=== PATIENT | female | born 1935 | race Hispanic/Latino ===

== ENCOUNTER 2018-04-24 23:01 | Inpatient (IN) | payer MEDICARE, OTHER ==
[2018-04-24 23:02] VITALS: BMI 26.6
[2018-04-24] MEDS ORDERED: Albuterol-Ipratrop 3 mg / 0.5 (3 ml) UD INH STA ×2 (23:34)
--- NOTE | 2018-04-24 23:35 | ED PDOC ---
HPI: SOB/CHF/COPD Time Seen by Provider: 04/24/18 23:18 Chief Complaint (Nursing): Shortness Of Breath Chief Complaint (Provider): Shortness Of Breath History Per: Patient, Family (daughter) History/Exam Limitations: no limitations Onset/Duration Of Symptoms: Days (x1) Current Symptoms Are (Timing): Still Present Additional Complaint(s): 82 year old female presents to the ED with daughter for evaluation of shortness of breath, a non-productive cough, and generalized weakness for one day. As per daughter, the patient was just discharged from [facility] where she was admitted for CHF. At home, patient is taking nebulizer treatments. PMD: Yoav Colindres Past Medical History Reviewed: Historical Data, Nursing Documentation, Vital Signs Vital Signs: Last Vital Signs Temp 97.9 F 04/27/18 12:40 Pulse 62 04/27/18 12:40 Resp 20 04/27/18 12:40 BP 119/63 04/27/18 12:40 Pulse Ox 97 04/27/18 12:40 - Medical History PMH: Anemia, Arthritis, Asthma, Atrial Fibrillation, Cardia Arrhythmia (A-FIB), CHF, COPD, Depression, HTN, Hypercholesterolemia, Hypothyroidism, Kidney Stones , Pneumonia, Chronic Kidney Disease - Surgical History Surgical History: Endoscopy, Pacemaker - Family History Family History: States: Unknown Family Hx - Home Medications Home Medications: Ambulatory Orders Medication Instructions Recorded Escitalopram [Lexapro] 10 mg PO DAILY 09/13/14 Magnesium Oxide 400 mg PO BID 09/13/14 Montelukast [Singulair] 10 mg PO HS 09/13/14 rifAXIMin [Xifaxan] 550 mg PO BID 09/13/14 Albuterol 0.083% [Albuterol 0.083% 3 ml NEB PRN PRN 12/13/17 Inhal Josefina (2.5 mg/3 ml) UD] Anastrozole 1 mg PO DAILY 12/13/17 Ascorbic Acid 500 mg PO DAILY 12/13/17 Calcium Acetate 667 mg PO DAILY 12/13/17 Carvedilol [Coreg] 6.25 mg PO Q12 12/13/17 Colchicine [Colcrys] 0.6 mg PO DAILY 12/13/17 Ergocalciferol (Vitamin D2) 50,000 unit PO QWK 12/13/17 [Vitamin D2] Esomeprazole Magnesium [Nexium] 40 mg PO DAILY 12/13/17 Febuxostat [Uloric] 40 mg PO DAILY 12/13/17 Ferrous Sulfate [Feosol] 325 mg PO TID 12/13/17 Furosemide [Lasix] 40 mg PO BID 12/13/17 Insulin Glargine,Hum.rec.anlog 10 unit SQ HS 12/13/17 [Lantus Solostar] Insulin Lispro [Humalog Kwikpen 10 unit SQ TID PRN 12/13/17 U-100] Lactulose 30 ml PO TID 12/13/17 Levothyroxine Sodium 25 mcg PO DAILY 12/13/17 Clinton-3 Fatty Acids [Clinton-3] 1,000 mg PO DAILY 12/13/17 Potassium Chloride 20 meq PO BID 12/13/17 diltiaZEM [Cardizem] 120 mg PO DAILY 12/13/17 - Allergies Allergies/Adverse Reactions: Allergies Allergy/AdvReac Type Severity Reaction Status Date / Time metoclopramide [From Reglan] Allergy ANAPHYLAXIS Verified 04/24/18 23:06 Review of Systems ROS Statement: Except As Marked, All Systems Reviewed And Found Negative Constitutional: Positive for: Weakness (generalized) Respiratory: Positive for: Cough (non-productive), Shortness of Breath Physical Exam - Reviewed Nursing Documentation Reviewed: Yes Vital Signs Reviewed: Yes - Physical Exam Appears: Positive for: No Acute Distress Head Exam: Positive for: ATRAUMATIC, NORMAL INSPECTION, NORMOCEPHALIC Skin: Positive for: Normal Color, Warm, Dry Eye Exam: Positive for: Normal appearance ENT: Positive for: Normal ENT Inspection Neck: Positive for: Normal, Painless ROM, Supple Cardiovascular/Chest: Positive for: Regular Rate, Rhythm (with pacemaker) Respiratory: Positive for: Crackles (bilateral), Respiratory Distress (mild) Gastrointestinal/Abdominal: Positive for: Normal Exam, Soft. Negative for: Tenderness Back: Positive for: Normal Inspection Extremity: Positive for: Pedal Edema (bilateral +1 pitting) Neurologic/Psych: Positive for: Alert, Oriented (x3) - Laboratory Results Result Diagrams: 04/27/18 04:20 04/27/18 04:20 - ECG Interpretation Of ECG: AV dual paced rhythm @ 63. O2 Sat by Pulse Oximetry: 93 (RA) Pulse Ox Interpretation: Abnormal Interpretation Of Abnormal: hx of COPD and CHF Medical Decision Making Medical Decision Making: Time: 2333 Initial Impression: COPD, CHF Initial Plan: --ABG --EKG --CMP --BNP --TSH --Trop I --U-dip --UA --CBC with differential --PT / PTT --CXR --Duoneb 3ml INH x2 --Methylprednisone 125mg IVP --Blood culture --Peak flow pre/post x2 Scribe Attestation: Documented by Meagan Nur acting as a scribe for Tamara Ureña MD. Provider Scribe Attestation: All medical record entries made by the Scribe were at my direction and personally dictated by me. I have reviewed the chart and agree that the record accurately reflects my personal performance of the history, physical exam, medical decision making, and the department course for this patient. I have also personally directed, reviewed, and agree with the discharge instructions and disposition. Disposition - Clinical Impression Clinical Impression: COPD exacerbation, CHF (congestive heart failure) - Patient ED Disposition Is Patient to be Admitted: Transfer of Care - Disposition Disposition: Transfer of Care Disposition Time: 00:00 Condition: STABLE Patient Signed Over To: Jesus Moore
[2018-04-24 23:56] LABS: BASO # 0.1 K/uL (0.0-0.2); EOS # 0.1 K/uL (0.0-0.7); EOS % 1.1 % (0.0-4.0); HEMOGLOBIN 12.6 g/dL (12.0-16.0); LYMPH # 1.4 K/uL (1.0-4.3); LYMPH % 12.8 % (20.0-40.0); MEAN CELL VOLUME 97.9 fl (81.0-99.0); MEAN CORPUSCULAR HEMOGLOBIN 32.9 pg (27.0-31.0); MEAN CORPUSCULAR HGB CONC 33.6 g/dL (33.0-37.0); MEAN PLATELET VOLUME 12.1 fl (7.2-11.7); MONO # 0.9 K/uL (0.0-0.8); MONO % 8.1 % (0.0-10.0); NEUT # 8.7 K/uL (1.8-7.0); RBC 3.81 Mil/uL (3.80-5.20); RED CELL DISTRIBUTION WIDTH 14.7 % (11.5-14.5); WHITE BLOOD COUNT 11.2 K/uL (4.8-10.8)
[2018-04-24 23:57] LABS: VENOUS BLOOD GAS BASE EXCESS 8.9 mmol/L (0.0-2.0); VENOUS BLOOD GAS PCO2 51 mmHg (40-60); VENOUS BLOOD GAS PO2 51 mm/Hg (30-55); VENOUS BLOOD PH 7.44 (7.32-7.43)
[2018-04-25 00:03] LABS: INR 1.1; PROTHROMBIN TIME 12.7 Seconds (9.8-13.1)
[2018-04-25 00:05] LABS: ALB/GLOB RATIO 0.8 (1.0-2.1); ALBUMIN 3.6 g/dL (3.5-5.0); BLOOD UREA NITROGEN 23 mg/dl (7-17); CALCIUM 10.4 mg/dL (8.4-10.2); GFR NON-AFRICAN AMERICAN 60; PARTIAL THROMBOPLASTIN TIME 31.3 Seconds (25.6-37.1)
--- NOTE | 2018-04-25 00:06 | ED PDOC ---
- Laboratory Results Result Diagrams: 04/24/18 23:40 04/24/18 23:40 - ECG O2 Sat by Pulse Oximetry: 93 (RA) - Critical Care Total Time (In Min): 30 Documented Critical Care: Time excludes all time spent performint seperately billable procedures Medical Decision Making Medical Decision Makin Pt care endorsed to Dr. Moore from Dr. Ureña pending labs and reevaluation. [address] Jenkins who is agreeable to place patient on observation status. 0210 RN informed provider that pt was becoming increasingly SOB. Pt was reevaluated and found to have full field bilateral rales in moderate respiratory distress. BIPAP, Lasix, Atrovent, Duoneb, Albuterol, and peak flow pre/post ordered. Scribe Attestation: Documented by Meagan Nur acting as a scribe for Jesus Moore MD. Provider Scribe Attestation: All medical record entries made by the Scribe were at my direction and personally dictated by me. I have reviewed the chart and agree that the record accurately reflects my personal performance of the history, physical exam, medical decision making, and the department course for this patient. I have also personally directed, reviewed, and agree with the discharge instructions and disposition. Disposition Counseled Patient/Family Regarding: Studies Performed, Diagnosis, Need For Followup - Clinical Impression Clinical Impression: COPD exacerbation, CHF (congestive heart failure) - POA Present On Arrival: None - Disposition Disposition: Hospitalized as Observation Patient Disposition Time: 00:15
[2018-04-25 00:16] LABS: B-TYPE NATRIURETIC PEPTIDE 3640 pg/ml (0-900)
[2018-04-25] MEDS ORDERED: Albuterol-Ipratrop 3 mg / 0.5 (3 ml) UD ONE (00:18)
[2018-04-25 00:48] LABS: ALT/SGPT 36 U/L (9-52); AST/SGOT 57 U/L (14-36)
[2018-04-25] MEDS ORDERED: Albuterol-Ipratrop 3 mg / 0.5 (3 ml) UD INH STA (01:16)
[2018-04-25] MEDS ORDERED: Ipratropium 0.02% Inhal Soln (0.5 mg/2.5 ml) UD IH ONE (01:56)
[2018-04-25] MEDS ORDERED: Albuterol 0.083% Inhal Sol (2.5 mg/3 mL) UD ONE (01:56)
[2018-04-25] MEDS ORDERED: Albuterol 0.083% Inhal Sol (2.5 mg/3 mL) UD INH STA (01:58)
[2018-04-25] MEDS ORDERED: Ipratropium 0.02% Inhal Soln (0.5 mg/2.5 ml) UD IH STA (01:58)
[2018-04-25] MEDS ORDERED: Dextrose 50% SYRINGE Inj (50 ml) IV PRN (07:14)
[2018-04-25] MEDS ORDERED: Glucagon Recombinant 1 mg Inj IM PRN (07:14)
--- NOTE | 2018-04-25 07:43 | CARD ---
APPROVED REPORT Date of service: 04/24/2018 EKG Measurement Heart [id number] <Conclusion> AV dual-paced rhythm Abnormal ECG
[2018-04-25] MEDS: Albuterol-Ipratrop 3 mg / 0.5 (3 ml) UD INH SCH ×4 (07:55→19:11)
[2018-04-25] MEDS: MethylPREDNISolone 40 mg Vial IVP SCH ×2 (08:43→18:00)
[2018-04-25] MEDS: Insulin Lispro (humaLOG) 100 Units/ml Inj SC SCH ×4 (08:44→21:30)
[2018-04-25] MEDS ORDERED: Potassium Chloride 20 mEq/15 ml LIQ UD PO SCH (09:00)
[2018-04-25] MEDS: Levothyroxine 25 MCG TAB PO SCH (09:31)
[2018-04-25] MEDS: Enoxaparin 40 mg Syringe SC SCH (10:32)
--- NOTE | 2018-04-25 10:32 | RAD ---
Date of service: 04/24/2018 PROCEDURE: CHEST RADIOGRAPH, 1 VIEW HISTORY: SOB COMPARISON: 12/25/2014 FINDINGS: LUNGS: There is moderate pulmonary venous congestion. There is subsegmental atelectasis in the left mid lung. PLEURA: No pneumothorax. Small right pleural fluid seen. CARDIOVASCULAR: Moderate cardiomegaly. Stable position of right-sided permanent pacing device. OSSEOUS STRUCTURES: No significant abnormalities. VISUALIZED UPPER ABDOMEN: Normal. OTHER FINDINGS: None. IMPRESSION: Findings are consistent with mild congestive heart failure with a small right pleural effusion.
[2018-04-25] MEDS ORDERED: INSULIN LISPRO 10 UNIT SQ PRN (12:15)
--- NOTE | 2018-04-25 14:48 | CP.PCM.HP ---
History of Present Illness - History of Present Illness History of Present Illness: HPI: Pt is an 82 y/o female with PMHX of CHF w/ Pacemaker, COPD, Afibb, DM, HTN, Depression, Hypothyroidism, Liver Cirrhosis who presented to [facility] ED with complaints of worsening sob associated with dry cough and generalized weakness x 1 day. Pt was discharged 1 week ago from [facility] for treatment of CHF exacerbation. She denies chest pain, LE edema, fever, chills, dysuria, N/V/D. Family at bedside. PMD: Dr. Colindres PMHX: CHF, COPD, Afibb, DM, HTN, Liver Cirrhosis Medications: Lasix 40mg po BID, Coreg, Cardizem, Humalog 10mg TID ACHS, Latus 10mg at bedtime, Albuterol, Lactulose, Levothyroxine, Magnesium Oxide and MOnteluekast, Rifaxamine SurgHx: Pacemaker Allergic to Reglan: Anaphylaxis Social: Lives with daughter. Non smoker ED Course/Intervention -Pt noted to be in respiratory distress, O2 sat 93 on rm air, placed on BIPAP -Duonebs x 3 -Lasix 60mg IV -Methylprednisone 125mg x1 -Cxray- mild pulmonary venous congestion, no focal infiltrates -ProBNP 3640 -K 5.3 Present on Admission - Present on Admission Any Indicators Present on Admission: No History of DVT/PE: No History of Uncontrolled Diabetes: No Urinary Catheter: No Decubitus Ulcer Present: No Past Patient History - Tetanus Immunizations Tetanus Immunization: Unknown - Past Medical History & Family History Past Medical History?: Yes - Past Social History Smoking Status: Never Smoked - CARDIAC Hx Atrial Fibrillation: Yes Hx Cardia Arrhythmia: Yes (A-FIB) Hx Congestive Heart Failure: Yes Hx Hypercholesterolemia: Yes Hx Hypertension: Yes Hx Pacemaker: Yes - PULMONARY Hx Asthma: Yes Hx Chronic Obstructive Pulmonary Disease (COPD): Yes Hx Pneumonia: Yes - NEUROLOGICAL Hx Neurological Disorder: Yes HX Cerebrovascular Accident: Yes - HEENT Hx HEENT Problems: Yes Hx Cataracts: Yes - RENAL Hx Chronic Kidney Disease: Yes - ENDOCRINE/METABOLIC Hx Diabetes Mellitus Type 1: Yes Hx Hypothyroidism: Yes - HEMATOLOGICAL/ONCOLOGICAL Hx AIDS: No Hx Anemia: Yes Hx Blood Transfusions: Yes Hx Blood Transfusion Reaction: No Hx Human Immunodeficiency Virus (HIV): No - INTEGUMENTARY Hx Dermatological Problems: No - MUSCULOSKELETAL/RHEUMATOLOGICAL Hx Arthritis: Yes Hx Falls: No Hx Unsteady Gait: Yes - GASTROINTESTINAL Hx Gastrointestinal Disorders: Yes Hx Liver Failure: Yes - GENITOURINARY/GYNECOLOGICAL Hx Genitourinary Disorders: Yes Hx Incontinence: Yes - PSYCHIATRIC Hx Depression: Yes Hx Substance Use: No - SURGICAL HISTORY Hx Surgeries: Yes Hx Cataract Extraction: Yes (BILAT.) Hx Cardiac Catheterization: Yes Other/Comment: HX: CYSTO WITH STENT PLACED. HX: RECONSTRUCTION OF VAGINA. HX: CYSTOSCOPY RIGHT URETERAL STENT EXCHANGE(01/29/18) - ANESTHESIA Hx Anesthesia: Yes Hx Anesthesia Reactions: No Hx Malignant Hyperthermia: No Meds Allergies/Adverse Reactions: Allergies Allergy/AdvReac Type Severity Reaction Status Date / Time metoclopramide [From Reglan] Allergy ANAPHYLAXIS Verified 04/24/18 23:06 Physical Exam - Constitutional Appears: No Acute Distress - Head Exam Head Exam: NORMAL INSPECTION - Eye Exam Eye Exam: Normal appearance - ENT Exam ENT Exam: Mucous Membranes Moist - Respiratory Exam Respiratory Exam: Rales (BL mid lung bases). absent: Wheezes, Respiratory Distress, Stridor - Cardiovascular Exam Cardiovascular Exam: REGULAR RHYTHM, +S1, +S2 - GI/Abdominal Exam GI & Abdominal Exam: Normal Bowel Sounds, Soft. absent: Tenderness - Extremities Exam Extremities exam: Positive for: normal capillary refill, pedal edema (+1 pitting edema) - Neurological Exam Neurological exam: Alert, Oriented x3 - Psychiatric Exam Psychiatric exam: Normal Affect, Normal Mood - Skin Skin Exam: Normal Color Results - Vital Signs Recent Vital Signs: Last Vital Signs Temp 97.7 F 04/25/18 12:24 Pulse 62 04/25/18 12:24 Resp 20 04/25/18 12:24 BP 146/67 04/25/18 12:24 Pulse Ox 97 04/25/18 12:24 - Labs Result Diagrams: 04/24/18 23:40 04/24/18 23:40 Labs: Laboratory Results - last 24 hr 04/24/18 04/24/18 04/24/18 23:40 23:40 23:40 WBC 11.2 H RBC 3.81 Hgb 12.6 Hct 37.3 MCV 97.9 MCH 32.9 H MCHC 33.6 RDW 14.7 H Plt Count 102 L MPV 12.1 H Neut % (Auto) 77.0 H Lymph % (Auto) 12.8 L George % (Auto) 8.1 Eos % (Auto) 1.1 Baso % (Auto) 1.0 Neut # (Auto) 8.7 H Lymph # (Auto) 1.4 George # (Auto) 0.9 H Eos # (Auto) 0.1 Baso # (Auto) 0.1 PT 12.7 INR 1.1 APTT 31.3 pO2 VBG pH VBG pCO2 VBG HCO3 VBG Total CO2 VBG O2 Sat (Calc) VBG Base Excess VBG Potassium Glucose Lactate FiO2 Sodium 134 Potassium 5.3 H Chloride 96 L Carbon Dioxide 32 H Anion Gap 11 BUN 23 H Creatinine 0.9 Est GFR ( Amer) > 60 Est GFR (Non-Af Amer) 60 POC Glucose (mg/dL) Random Glucose 195 H Calcium 10.4 H Total Bilirubin 1.4 H AST 57 H ALT 36 Alkaline Phosphatase 77 Troponin I 0.0540 NT-Pro-B Natriuret Pep 3640 H Total Protein 7.9 Albumin 3.6 Globulin 4.3 H Albumin/Globulin Ratio 0.8 L TSH 3rd Generation 5.01 H Venous Blood Potassium 04/24/18 04/25/18 04/25/18 23:54 01:32 05:02 WBC RBC Hgb Hct MCV MCH MCHC RDW Plt Count MPV Neut % (Auto) Lymph % (Auto) George % (Auto) Eos % (Auto) Baso % (Auto) Neut # (Auto) Lymph # (Auto) George # (Auto) Eos # (Auto) Baso # (Auto) PT INR APTT pO2 51 VBG pH 7.44 H VBG pCO2 51 VBG HCO3 31.6 VBG Total CO2 36.2 H VBG O2 Sat (Calc) 91.4 H VBG Base Excess 8.9 H VBG Potassium 4.9 Glucose 209 H Lactate 2.3 H FiO2 21.0 Sodium 132.0 Potassium Chloride 98.0 Carbon Dioxide Anion Gap BUN Creatinine Est GFR ( Amer) Est GFR (Non-Af Amer) POC Glucose (mg/dL) 167 H 235 H Random Glucose Calcium Total Bilirubin AST ALT Alkaline Phosphatase Troponin I NT-Pro-B Natriuret Pep Total Protein Albumin Globulin Albumin/Globulin Ratio TSH 3rd Generation Venous Blood Potassium 4.9 04/25/18 11:10 WBC RBC Hgb Hct MCV MCH MCHC RDW Plt Count MPV Neut % (Auto) Lymph % (Auto) George % (Auto) Eos % (Auto) Baso % (Auto) Neut # (Auto) Lymph # (Auto) George # (Auto) Eos # (Auto) Baso # (Auto) PT INR APTT pO2 VBG pH VBG pCO2 VBG HCO3 VBG Total CO2 VBG O2 Sat (Calc) VBG Base Excess VBG Potassium Glucose Lactate FiO2 Sodium Potassium Chloride Carbon Dioxide Anion Gap BUN Creatinine Est GFR ( Amer) Est GFR (Non-Af Amer) POC Glucose (mg/dL) > 500 H* Random Glucose Calcium Total Bilirubin AST ALT Alkaline Phosphatase Troponin I NT-Pro-B Natriuret Pep Total Protein Albumin Globulin Albumin/Globulin Ratio TSH 3rd Generation Venous Blood Potassium Assessment & Plan (1) CHF (congestive heart failure) Status: Acute Priority: Medium (2) COPD exacerbation Status: Acute (3) Cirrhosis Status: Chronic (4) Hypothyroidism Status: Chronic (5) Afib Status: Chronic (6) HTN (hypertension) Status: Chronic (7) Thrombocytopenia Status: Chronic (8) DM2 (diabetes mellitus, type 2) Status: Chronic Priority: Medium (9) Pacemaker Status: Chronic Priority: Low - Assessment and Plan (Free Text) Assessment: Pt is an 82 y/o female with PMHX of CHF w/ Pacemaker, COPD, Afibb, DM, HTN,Liver Cirrhosis who presented to [facility] ED with complaints of worsening sob associated with dry cough, generalized weakness x 1 day admit for respiratory distress. -Respiratory symptoms likely secondary to CHF exacerbation vs COPD exacerbation -Respiratory status improved this morning. pt currently on high flow O2 -C/W IV Lasix, scheduled duonebs, IV prednisolone. -TSH elevated, restarted home levothyroxine -Started on home medications -PMD aware -Medical release forms signed to retrieve Echo report from [facility] Discussed case with Dr. Gregory Rivera, PGY2
[2018-04-25] MEDS: Magnesium Oxide 400 mg Tab UD PO SCH (18:05)
[2018-04-25] MEDS: Insulin Detemir 100 Units/ml Inj SC SCH (21:21)
[2018-04-26] MEDS: MethylPREDNISolone 40 mg Vial IVP SCH ×2 (01:30→09:45)
[2018-04-26] MEDS: Levothyroxine 25 MCG TAB PO SCH (05:58)
[2018-04-26 06:11] LABS: ALB/GLOB RATIO 0.8 (1.0-2.1); ALBUMIN 3.6 g/dL (3.5-5.0); CALCIUM 9.9 mg/dL (8.4-10.2)
[2018-04-26 06:15] LABS: BASO % 0.2 % (0.0-2.0); EOS % 0.2 % (0.0-4.0); HEMOGLOBIN 12.4 g/dL (12.0-16.0); LYMPH # 0.7 K/uL (1.0-4.3); LYMPH % 4.1 % (20.0-40.0); MEAN CELL VOLUME 98.4 fl (81.0-99.0); MEAN CORPUSCULAR HGB CONC 33.6 g/dL (33.0-37.0); MEAN PLATELET VOLUME 12.5 fl (7.2-11.7); MONO # 0.3 K/uL (0.0-0.8); MONO % 1.8 % (0.0-10.0); NEUT # 16.9 K/uL (1.8-7.0); NEUT % 93.7 % (50.0-75.0); PLATELET COUNT 90 K/uL (130-400); RBC 3.76 Mil/uL (3.80-5.20); RED CELL DISTRIBUTION WIDTH 14.6 % (11.5-14.5); WHITE BLOOD COUNT 18.1 K/uL (4.8-10.8)
[2018-04-26] MEDS: Insulin Lispro (humaLOG) 100 Units/ml Inj SC SCH ×4 (07:44→21:12)
[2018-04-26] MEDS: Albuterol-Ipratrop 3 mg / 0.5 (3 ml) UD INH SCH ×2 (08:03→11:08)
[2018-04-26] MEDS ORDERED: Levothyroxine 25 MCG TAB PO SCH (09:00)
[2018-04-26] MEDS: diltiaZEM 120 mg/24 Hours CD Cap PO SCH (09:41)
[2018-04-26] MEDS: Magnesium Oxide 400 mg Tab UD PO SCH ×2 (09:41→19:00)
[2018-04-26] MEDS: Omega-3-Acid Ethyl Esters 1 GM Cap PO SCH (09:41)
[2018-04-26] MEDS: Calcium Acetate 667 MG Capsule PO SCH (09:42)
[2018-04-26] MEDS: Enoxaparin 40 mg Syringe SC SCH (09:43)
[2018-04-26 11:57] LABS: BANDS 3 % (0-2); LYMPHOCYTE 6 % (20-50); MONOCYTE 2 % (0-10); NEUTROPHIL 89 % (42-75); TOTAL CELLS COUNTED 100
[2018-04-26 11:59] LABS: PLATELET ESTIMATE DECREASED (NORMAL)
[2018-04-26] MEDS ORDERED: Albuterol-Ipratrop 3 mg / 0.5 (3 ml) UD INH PRN (12:11)
--- NOTE | 2018-04-26 14:11 | CP.PCM.PN ---
Subjective - Date & Time of Evaluation Date of Evaluation: 04/26/18 Time of Evaluation: 08:00 - Subjective Subjective: No acute overnight events. Pt used bipap intermittently through the night. Pt seen and examined this am with Dr. Wayne, family at bedside. Pt reports improvement in her breathing compared to yesterday. Has been urinating frequently. Able to get out of bed to commode with assistance. Denies chest pain. Objective - Vital Signs/Intake and Output Vital Signs (last 24 hours): Temp Pulse Resp BP Pulse Ox 97.8 F 81 18 127/74 98 04/26/18 08:09 04/26/18 09:42 04/26/18 08:09 04/26/18 11:55 04/26/18 08:09 - Medications Medications: Current Medications Albuterol/Ipratropium (Duoneb 3 Mg/0.5 Mg (3 Ml) Ud) 3 ml INH RQID PRN PRN Reason: Shortness of Breath Ascorbic Acid (Vitamin C 500 Mg Tab) 500 mg PO DAILY [facility] Last Admin: 04/26/18 09:41 Dose: 500 mg Calcium Acetate (Phoslo) 667 mg PO DAILY [facility] Last Admin: 04/26/18 09:42 Dose: 667 mg Carvedilol (Coreg) 6.25 mg PO Q12 [facility] Last Admin: 04/26/18 09:42 Dose: 6.25 mg Colchicine (Colocrys) 0.6 mg PO DAILY [facility] Last Admin: 04/26/18 09:43 Dose: 0.6 mg Dextrose (Dextrose 50% Inj) 0 ml IV STAT PRN; Protocol PRN Reason: Hypoglycemia Protocol Dextrose (Glutose 15) 0 gm PO ONCE PRN; Protocol PRN Reason: Hypoglycemia Protocol Diltiazem HCl (Cardizem Cd) 120 mg PO DAILY [facility] Last Admin: 04/26/18 09:41 Dose: 120 mg Enoxaparin Sodium (Lovenox) 40 mg SC DAILY [facility] PRN Reason: Protocol Last Admin: 04/26/18 09:43 Dose: 40 mg Ergocalciferol (Drisdol 50,000 Intl Units Cap) 1 cap PO QWK [facility] Escitalopram Oxalate (Lexapro) 10 mg PO DAILY [facility] Last Admin: 04/26/18 09:41 Dose: 10 mg Ferrous Sulfate (Feosol) 325 mg PO TID [facility] Last Admin: 04/26/18 13:37 Dose: 325 mg Furosemide (Lasix) 40 mg IVP BID [facility] Last Admin: 04/26/18 11:55 Dose: 20 mg Glucagon (Glucagen Diagnostic Kit) 0 mg IM STAT PRN; Protocol PRN Reason: Hypoglycemia Protocol Insulin Detemir (Levemir) 10 units SC HS [facility] Last Admin: 04/25/18 21:21 Dose: 10 units Insulin Human Lispro (Humalog) 0 units SC [facility] PRN Reason: Protocol Last Admin: 04/26/18 12:00 Dose: 10 units Lactulose (Enulose) 20 gm PO TID [facility] Last Admin: 04/26/18 13:30 Dose: 20 gm Levothyroxine Sodium (Synthroid) 25 mcg PO DAILY@0630 [facility] Last Admin: 04/26/18 05:58 Dose: 25 mcg Magnesium Oxide (Mag-Ox) 400 mg PO BID [facility] Last Admin: 04/26/18 09:41 Dose: 400 mg Montelukast Sodium (Singulair) 10 mg PO [facility] Last Admin: 04/25/18 21:21 Dose: 10 mg Itiht-3-Vmkc Ethyl Esters (Lovaza) 1 gm PO DAILY [facility] Last Admin: 04/26/18 09:41 Dose: 1 gm Prednisone (Prednisone Tab) 40 mg PO BID [facility] Rifaximin (Xifaxan) 550 mg PO BID [facility] PRN Reason: Protocol Last Admin: 04/26/18 09:40 Dose: 550 mg Spironolactone (Aldactone) 25 mg PO DAILY [facility] Last Admin: 04/26/18 09:42 Dose: 25 mg - Labs Labs: 04/26/18 05:39 04/26/18 05:39 PT 12.7 Seconds (9.8-13.1) 04/24/18 23:40 INR 1.1 04/24/18 23:40 APTT 31.3 Seconds (25.6-37.1) 04/24/18 23:40 - Constitutional Appears: Well, Non-toxic, No Acute Distress - Head Exam Head Exam: NORMAL INSPECTION - Eye Exam Eye Exam: Normal appearance - ENT Exam ENT Exam: Mucous Membranes Moist - Respiratory Exam Respiratory Exam: Rales (BL, mid and lower lung bases, no wheezing, poor inspiratory effort, no signs of distress) - Cardiovascular Exam Cardiovascular Exam: Irregular Rhythm. absent: Murmur - GI/Abdominal Exam GI & Abdominal Exam: Soft, Normal Bowel Sounds. absent: Tenderness - Extremities Exam Extremities Exam: Pedal Edema (+1 up to ankles, godd distal pulses) - Neurological Exam Neurological Exam: Alert, Oriented x3 Assessment and Plan (1) CHF (congestive heart failure) Status: Acute (2) COPD exacerbation Status: Chronic (3) Cirrhosis Status: Chronic (4) Hypothyroidism Status: Chronic (5) Afib Status: Chronic (6) HTN (hypertension) Status: Chronic (7) Thrombocytopenia Status: Chronic (8) DM2 (diabetes mellitus, type 2) Status: Chronic (9) Pacemaker Status: Chronic - Assessment and Plan (Free Text) Assessment: Pt is an 82 y/o female with PMHX of CHF w/ Pacemaker, COPD, Afibb, DM, HTN, Liver Cirrhosis who presented to [facility] ED with complaints of worsening sob associated with dry cough, generalized weakness x 1 day admit for respiratory distress. -Respiratory symptoms likely secondary to CHF exacerbation. Less likely COPD exacerbation. -Respiratory status clinically improved this morning, although proBNP increased to 4,600. -Increased IV Lasix to 40mg IV BID. -Will taper IV prednisone as this is less likely a COPD exacerbation. -Awaiting Echo reports from [facility] -Cardiology consulted, Dr. Rose -Pulmonology Consulted, Dr. Sellers -Ammonia normal Discussed case with Dr. Tone Rivera, PGY2
[2018-04-26] MEDS: Insulin Detemir 100 Units/ml Inj SC SCH (21:11)
--- NOTE | 2018-04-26 22:03 | CP.PCM.CON ---
History of Present Illness - History of Present Illness History of Present Illness: 82 y/o female with a history of COPD and Pulmonary HTN assumed to be 2/2 chronic hypoxemia from COPD Came to ER 2/2 increase in SOB. Minimal cough. Minimal phlegm. Neg Chest pain. NKDA Never smoker, but Pos 2nd hand smoking hx. Fam Hx: non cont. Meds: see Med List. S/ Feeling much better today, compared to when she was admitted. O/ Vital Sings WNL Head; mild JVD at 45 degrees. Pos JUANITA. Heart: Regular Rate, Irregular rhythm. Ns1 P2 > A2 Neg M Lungs: clear to A & P. Somewhat Distant BS. No C,C, 1+ pitting ankle edema. Neuro GNF Chest X-ray WNL. Labs: See Below. a/p Acute on Chronic Resp Failure 2/2 CHF, and COPD/Pulmo HTN Cont supp O2 for O2 sat > 90% Cont to taper PO prednisone. Not clear if Pulmo HT is 2/2 COPD/Chronic Hypoxemia or Primary Pulmo HTN/ Connective tissue disorder / Cirrhosis / Et cetera. Needs further w/u by private Associate Media Planner. Dr. Deanna Jerry if not done so already. Cont Nebulized Duoneb Q 6 hours while awake. Yearly Yossi Voltage CT Scan of chest for Lung Ca screening. Needs PFT's which can be done as outpatient. Optimize Cardiac Status. Cardiology f/u. PUD and DVT prophylaxis with SQ Lovenox. Signing out of case. Please call if conditions requires reconsulting. F/U with private Associate Media Planner; Dr. Deanna Jerry. Thank you for this consult. Getachew Delcid M.D., [facility] Cell) [phone] Past Patient History - Tetanus Immunizations Tetanus Immunization: Unknown - Past Medical History & Family History Past Medical History?: Yes - Past Social History Smoking Status: Never Smoked - CARDIAC Hx Atrial Fibrillation: Yes Hx Cardia Arrhythmia: Yes (A-FIB) Hx Congestive Heart Failure: Yes Hx Hypercholesterolemia: Yes Hx Hypertension: Yes Hx Pacemaker: Yes - PULMONARY Hx Asthma: Yes Hx Chronic Obstructive Pulmonary Disease (COPD): Yes Hx Pneumonia: Yes - NEUROLOGICAL Hx Neurological Disorder: Yes HX Cerebrovascular Accident: Yes - HEENT Hx HEENT Problems: Yes Hx Cataracts: Yes - RENAL Hx Chronic Kidney Disease: Yes - ENDOCRINE/METABOLIC Hx Diabetes Mellitus Type 1: Yes Hx Hypothyroidism: Yes - HEMATOLOGICAL/ONCOLOGICAL Hx AIDS: No Hx Anemia: Yes Hx Blood Transfusions: Yes Hx Blood Transfusion Reaction: No Hx Human Immunodeficiency Virus (HIV): No - INTEGUMENTARY Hx Dermatological Problems: No - MUSCULOSKELETAL/RHEUMATOLOGICAL Hx Arthritis: Yes Hx Falls: No Hx Unsteady Gait: Yes - GASTROINTESTINAL Hx Gastrointestinal Disorders: Yes Hx Liver Failure: Yes - GENITOURINARY/GYNECOLOGICAL Hx Genitourinary Disorders: Yes Hx Incontinence: Yes - PSYCHIATRIC Hx Depression: Yes Hx Substance Use: No - SURGICAL HISTORY Hx Surgeries: Yes Hx Cataract Extraction: Yes (BILAT.) Hx Cardiac Catheterization: Yes Other/Comment: HX: CYSTO WITH STENT PLACED. HX: RECONSTRUCTION OF VAGINA. HX: CYSTOSCOPY RIGHT URETERAL STENT EXCHANGE(01/29/18) - ANESTHESIA Hx Anesthesia: Yes Hx Anesthesia Reactions: No Hx Malignant Hyperthermia: No Meds Allergies/Adverse Reactions: Allergies Allergy/AdvReac Type Severity Reaction Status Date / Time metoclopramide [From Reglan] Allergy ANAPHYLAXIS Verified 04/24/18 23:06 - Medications Medications: Current Medications Albuterol/Ipratropium (Duoneb 3 Mg/0.5 Mg (3 Ml) Ud) 3 ml INH RQID [facility] Ascorbic Acid (Vitamin C 500 Mg Tab) 500 mg PO DAILY [facility] Last Admin: 04/26/18 09:41 Dose: 500 mg Calcium Acetate (Phoslo) 667 mg PO DAILY [facility] Last Admin: 04/26/18 09:42 Dose: 667 mg Carvedilol (Coreg) 6.25 mg PO Q12 [facility] Last Admin: 04/26/18 21:11 Dose: 6.25 mg Colchicine (Colocrys) 0.6 mg PO DAILY [facility] Last Admin: 04/26/18 09:43 Dose: 0.6 mg Dextrose (Dextrose 50% Inj) 0 ml IV STAT PRN; Protocol PRN Reason: Hypoglycemia Protocol Dextrose (Glutose 15) 0 gm PO ONCE PRN; Protocol PRN Reason: Hypoglycemia Protocol Diltiazem HCl (Cardizem Cd) 120 mg PO DAILY [facility] Last Admin: 04/26/18 09:41 Dose: 120 mg Enoxaparin Sodium (Lovenox) 40 mg SC DAILY [facility] PRN Reason: Protocol Last Admin: 04/26/18 09:43 Dose: 40 mg Ergocalciferol (Drisdol 50,000 Intl Units Cap) 1 cap PO QWK [facility] Escitalopram Oxalate (Lexapro) 10 mg PO DAILY [facility] Last Admin: 04/26/18 09:41 Dose: 10 mg Ferrous Sulfate (Feosol) 325 mg PO TID [facility] Last Admin: 04/26/18 19:00 Dose: 325 mg Furosemide (Lasix) 40 mg IVP BID [facility] Last Admin: 04/26/18 18:53 Dose: 40 mg Glucagon (Glucagen Diagnostic Kit) 0 mg IM STAT PRN; Protocol PRN Reason: Hypoglycemia Protocol Insulin Detemir (Levemir) 10 units SC [facility] Last Admin: 04/26/18 21:11 Dose: 10 units Insulin Human Lispro (Humalog) 0 units SC [facility] PRN Reason: Protocol Last Admin: 04/26/18 21:12 Dose: 4 units Lactulose (Enulose) 20 gm PO TID [facility] Last Admin: 04/26/18 18:51 Dose: 20 gm Levothyroxine Sodium (Synthroid) 25 mcg PO DAILY@0630 [facility] Last Admin: 04/26/18 05:58 Dose: 25 mcg Magnesium Oxide (Mag-Ox) 400 mg PO BID [facility] Last Admin: 04/26/18 19:00 Dose: 400 mg Montelukast Sodium (Singulair) 10 mg PO [facility] Last Admin: 04/26/18 21:11 Dose: 10 mg Jfcbp-0-Magm Ethyl Esters (Lovaza) 1 gm PO DAILY [facility] Last Admin: 04/26/18 09:41 Dose: 1 gm Prednisone (Prednisone Tab) 40 mg PO BID [facility] Last Admin: 04/26/18 18:52 Dose: 40 mg Rifaximin (Xifaxan) 550 mg PO BID [facility] PRN Reason: Protocol Last Admin: 04/26/18 19:00 Dose: 550 mg Spironolactone (Aldactone) 25 mg PO DAILY [facility] Last Admin: 04/26/18 09:42 Dose: 25 mg Results - Vital Signs Recent Vital Signs: Last Vital Signs Temp 98.1 F 04/26/18 20:24 Pulse 72 04/26/18 21:11 Resp 16 04/26/18 20:24 BP 123/65 04/26/18 21:11 Pulse Ox 98 04/26/18 20:24 - Labs Result Diagrams: 04/26/18 05:39 04/26/18 05:39 Labs: Laboratory Results - last 24 hr 04/26/18 04/26/18 04/26/18 04:44 05:39 05:39 WBC 18.1 H D RBC 3.76 L Hgb 12.4 Hct 37.0 MCV 98.4 MCH 33.0 H MCHC 33.6 RDW 14.6 H Plt Count 90 L MPV 12.5 H Neut % (Auto) 93.7 H Lymph % (Auto) 4.1 L Morehouse % (Auto) 1.8 Eos % (Auto) 0.2 Baso % (Auto) 0.2 Neut # (Auto) 16.9 H Lymph # (Auto) 0.7 L Morehouse # (Auto) 0.3 Eos # (Auto) 0.0 Baso # (Auto) 0.0 Neutrophils % (Manual) 89 H Band Neutrophils % 3 H Lymphocytes % (Manual) 6 L Monocytes % (Manual) 2 Platelet Estimate Decreased L RBC Morphology Normal Sodium 135 Potassium 5.0 Chloride 94 L Carbon Dioxide 31 H Anion Gap 15 BUN 40 H Creatinine 1.1 Est GFR ( Amer) 58 Est GFR (Non-Af Amer) 48 POC Glucose (mg/dL) 297 H Random Glucose 306 H Hemoglobin A1c Calcium 9.9 Phosphorus 4.6 H Magnesium 2.1 Total Bilirubin 1.1 AST 68 H ALT 45 Alkaline Phosphatase 80 Ammonia NT-Pro-B Natriuret Pep Total Protein 8.0 Albumin 3.6 Globulin 4.4 H Albumin/Globulin Ratio 0.8 L 04/26/18 04/26/18 04/26/18 06:28 08:22 11:10 WBC RBC Hgb Hct MCV MCH MCHC RDW Plt Count MPV Neut % (Auto) Lymph % (Auto) Morehouse % (Auto) Eos % (Auto) Baso % (Auto) Neut # (Auto) Lymph # (Auto) Morehouse # (Auto) Eos # (Auto) Baso # (Auto) Neutrophils % (Manual) Band Neutrophils % Lymphocytes % (Manual) Monocytes % (Manual) Platelet Estimate RBC Morphology Sodium Potassium Chloride Carbon Dioxide Anion Gap BUN Creatinine Est GFR ( Amer) Est GFR (Non-Af Amer) POC Glucose (mg/dL) 490 H* Random Glucose Hemoglobin A1c 7.1 H D Calcium Phosphorus Magnesium Total Bilirubin AST ALT Alkaline Phosphatase Ammonia NT-Pro-B Natriuret Pep 4940 H Total Protein Albumin Globulin Albumin/Globulin Ratio 04/26/18 04/26/18 12:07 21:02 WBC RBC Hgb Hct MCV MCH MCHC RDW Plt Count MPV Neut % (Auto) Lymph % (Auto) Morehouse % (Auto) Eos % (Auto) Baso % (Auto) Neut # (Auto) Lymph # (Auto) Morehouse # (Auto) Eos # (Auto) Baso # (Auto) Neutrophils % (Manual) Band Neutrophils % Lymphocytes % (Manual) Monocytes % (Manual) Platelet Estimate RBC Morphology Sodium Potassium Chloride Carbon Dioxide Anion Gap BUN Creatinine Est GFR ( Amer) Est GFR (Non-Af Amer) POC Glucose (mg/dL) 460 H* Random Glucose Hemoglobin A1c Calcium Phosphorus Magnesium Total Bilirubin AST ALT Alkaline Phosphatase Ammonia 9 L NT-Pro-B Natriuret Pep Total Protein Albumin Globulin Albumin/Globulin Ratio
[2018-04-27 05:53] LABS: BASO % 0.1 % (0.0-2.0); HEMOGLOBIN 12.2 g/dL (12.0-16.0); LYMPH # 0.3 K/uL (1.0-4.3); LYMPH % 2.9 % (20.0-40.0); MEAN CELL VOLUME 98.8 fl (81.0-99.0); MEAN CORPUSCULAR HEMOGLOBIN 33.2 pg (27.0-31.0); MEAN CORPUSCULAR HGB CONC 33.5 g/dL (33.0-37.0); MEAN PLATELET VOLUME 12.2 fl (7.2-11.7); MONO # 0.3 K/uL (0.0-0.8); MONO % 2.8 % (0.0-10.0); NEUT # 10.2 K/uL (1.8-7.0); NEUT % 94.2 % (50.0-75.0); RBC 3.68 Mil/uL (3.80-5.20); RED CELL DISTRIBUTION WIDTH 14.3 % (11.5-14.5); WHITE BLOOD COUNT 10.8 K/uL (4.8-10.8)
[2018-04-27] MEDS: Insulin Lispro (humaLOG) 100 Units/ml Inj SC SCH ×6 (06:36→22:12)
[2018-04-27] MEDS: Levothyroxine 25 MCG TAB PO SCH (06:36)
[2018-04-27 07:34] LABS: ALB/GLOB RATIO 0.8 (1.0-2.1); ALBUMIN 3.3 g/dL (3.5-5.0); CALCIUM 9.6 mg/dL (8.4-10.2)
[2018-04-27] MEDS: Albuterol-Ipratrop 3 mg / 0.5 (3 ml) UD INH SCH ×4 (07:46→19:16)
[2018-04-27] MEDS: Enoxaparin 40 mg Syringe SC SCH (09:19)
[2018-04-27] MEDS: Magnesium Oxide 400 mg Tab UD PO SCH ×2 (09:28→17:34)
[2018-04-27] MEDS: Ergocalciferol 50,000 Intl Units Cap PO SCH (09:30)
[2018-04-27] MEDS: diltiaZEM 120 mg/24 Hours CD Cap PO SCH (09:31)
[2018-04-27] MEDS: Calcium Acetate 667 MG Capsule PO SCH (09:33)
[2018-04-27] MEDS: Potassium Chloride 20 mEq ER Tab PO SCH ×2 (09:35→17:38)
--- NOTE | 2018-04-27 11:42 | RAD ---
Date of service: 04/27/2018 HISTORY: Decompensated CHF COMPARISON: 04/24/2018. FINDINGS: LUNGS: Persistent pulmonary vascular congestion which is stable. PLEURA: Stable right pleural effusion. CARDIOVASCULAR: Cardiomegaly. Position/ configuration of pacemaker Satisfactory. OSSEOUS STRUCTURES: No significant abnormalities. VISUALIZED UPPER ABDOMEN: Normal. OTHER FINDINGS: None. IMPRESSION: Stable pulmonary vascular congestion. No new/acute
--- NOTE | 2018-04-27 15:24 | CP.PCM.PN ---
Subjective - Date & Time of Evaluation Date of Evaluation: 04/27/18 Time of Evaluation: 08:00 - Subjective Subjective: Seen and examined this morning receiving neubulizer treatment. States breathing has improved. Denies cough. No complaints. Daughter at bedside, discussed plan. Objective - Vital Signs/Intake and Output Vital Signs (last 24 hours): Temp Pulse Resp BP Pulse Ox 97.9 F 62 20 119/63 93 L 04/27/18 12:40 04/27/18 12:40 04/27/18 12:40 04/27/18 12:40 04/27/18 13:01 Intake and Output: 04/27/18 04/27/18 06:59 18:59 Intake Total 1200 Output Total 680 Balance 520 - Medications Medications: Current Medications Albuterol/Ipratropium (Duoneb 3 Mg/0.5 Mg (3 Ml) Ud) 3 ml INH RQID [facility] Last Admin: 04/27/18 11:23 Dose: 3 ml Ascorbic Acid (Vitamin C 500 Mg Tab) 500 mg PO DAILY [facility] Last Admin: 04/27/18 09:30 Dose: 500 mg Calcium Acetate (Phoslo) 667 mg PO DAILY [facility] Last Admin: 04/27/18 09:33 Dose: 667 mg Carvedilol (Coreg) 6.25 mg PO Q12 [facility] Last Admin: 04/27/18 09:30 Dose: 6.25 mg Dextrose (Dextrose 50% Inj) 0 ml IV STAT PRN; Protocol PRN Reason: Hypoglycemia Protocol Dextrose (Glutose 15) 0 gm PO ONCE PRN; Protocol PRN Reason: Hypoglycemia Protocol Diltiazem HCl (Cardizem Cd) 120 mg PO DAILY [facility] Last Admin: 04/27/18 09:31 Dose: 120 mg Enoxaparin Sodium (Lovenox) 40 mg SC DAILY [facility] PRN Reason: Protocol Last Admin: 04/27/18 09:19 Dose: 40 mg Ergocalciferol (Drisdol 50,000 Intl Units Cap) 1 cap PO QWK [facility] Last Admin: 04/27/18 09:30 Dose: 1 cap Escitalopram Oxalate (Lexapro) 10 mg PO DAILY [facility] Last Admin: 04/27/18 09:27 Dose: 10 mg Ferrous Sulfate (Feosol) 325 mg PO TID [facility] Last Admin: 04/27/18 09:32 Dose: 325 mg Furosemide (Lasix) 40 mg IVP BID [facility] Glucagon (Glucagen Diagnostic Kit) 0 mg IM STAT PRN; Protocol PRN Reason: Hypoglycemia Protocol Insulin Detemir (Levemir) 10 units SC HS [facility] Last Admin: 04/26/18 21:11 Dose: 10 units Insulin Human Lispro (Humalog) 0 units SC ACHS [facility] PRN Reason: Protocol Last Admin: 04/27/18 06:36 Dose: 6 units Insulin Human Lispro (Humalog) 10 units SC TIDAC [facility] Lactulose (Enulose) 20 gm PO BID [facility] Levothyroxine Sodium (Synthroid) 25 mcg PO DAILY@0630 [facility] Last Admin: 04/27/18 06:36 Dose: 25 mcg Magnesium Oxide (Mag-Ox) 400 mg PO BID [facility] Last Admin: 04/27/18 09:28 Dose: 400 mg Montelukast Sodium (Singulair) 10 mg PO HS [facility] Last Admin: 04/26/18 21:11 Dose: 10 mg Qzkog-4-Gdoo Ethyl Esters (Lovaza) 1 gm PO DAILY [facility] Last Admin: 04/26/18 09:41 Dose: 1 gm Potassium Chloride (K-Dur 20 Meq Er Tab) 20 meq PO BID [facility] Last Admin: 04/27/18 09:35 Dose: 20 meq Prednisone (Prednisone Tab) 40 mg PO BID [facility] Last Admin: 04/27/18 09:26 Dose: 40 mg Rifaximin (Xifaxan) 550 mg PO BID [facility] PRN Reason: Protocol Last Admin: 04/27/18 09:32 Dose: 550 mg Spironolactone (Aldactone) 25 mg PO DAILY [facility] Last Admin: 04/27/18 09:31 Dose: 25 mg - Labs Labs: 04/27/18 04:20 04/27/18 04:20 PT 12.7 Seconds (9.8-13.1) 04/24/18 23:40 INR 1.1 04/24/18 23:40 APTT 31.3 Seconds (25.6-37.1) 04/24/18 23:40 - Constitutional Appears: Non-toxic - Head Exam Head Exam: NORMAL INSPECTION - Eye Exam Eye Exam: Normal appearance - ENT Exam ENT Exam: Mucous Membranes Moist - Neck Exam Neck Exam: Full ROM - Respiratory Exam Respiratory Exam: Rales (BL rales at lung bases R>L). absent: Wheezes, Respiratory Distress, Stridor - Cardiovascular Exam Cardiovascular Exam: REGULAR RHYTHM, +S1, +S2. absent: Murmur - GI/Abdominal Exam GI & Abdominal Exam: Distended (mild distension, no ascities, + hepatomegaly ( present on admission)), Soft. absent: Tenderness - Extremities Exam Extremities Exam: absent: Pedal Edema - Neurological Exam Neurological Exam: Alert, Oriented x3 - Psychiatric Exam Psychiatric exam: Normal Affect - Skin Skin Exam: Normal Color Assessment and Plan (1) CHF (congestive heart failure) Status: Acute (2) COPD exacerbation Status: Chronic (3) Cirrhosis Status: Chronic (4) Hypothyroidism Status: Chronic (5) Afib Status: Chronic (6) HTN (hypertension) Status: Chronic (7) Thrombocytopenia Status: Chronic (8) DM2 (diabetes mellitus, type 2) Status: Chronic (9) Pacemaker Status: Chronic - Assessment and Plan (Free Text) Assessment: Pt is an 82 y/o female with PMHX of CHF w/ Pacemaker, COPD, Afibb, DM, HTN, Liver Cirrhosis who presented to [facility] ED with complaints of worsening sob associated with dry cough, generalized weakness x 1 day admitted for Respiratory Distress -Respiratory status clinically improved. -Elevated ProBNP may be secondary to Pulmonary HTN w/ subsequent Right ventricular failure.(This would explain elevated Pro-BNP elevation) vs decompensated CHF vs less likely COPD exacerbation. - Insufficient diuresis despite higher doses of diuretics. Gomez placed, post void residual was 300+cc suggesting retaining. Will keep gomez in and monitor I/ O strictly. C/W Lasix to 40mg IV BID. -Will continue taper IV prednisone -Awaiting Echo reports from [facility]. Medical release faxed -Cardiology consulted, Dr. Rose, awaiting recommendations. -Pulmonology Consulted, Dr. Sellers. COPD/Pulmonary HTN, C/w duoneds q6, PFT's outpatient, F/U with Private oncology rn, Dr. Jerry -Ammonia low, decrease lactulose frequency given frequent BM's -Hypokalemia, restart home KCL -Transaminitis, Likely Congestive Hepatopathy. Abdominal US ordered. -Blood sugars elevated 300-400, likely secondary to Steroids, Restarted pt's basal-bolus home regimen. Discussed case with Dr. Tone Rivera, PGY2
[2018-04-27] MEDS: Omega-3-Acid Ethyl Esters 1 GM Cap PO SCH (17:35)
--- NOTE | 2018-04-27 18:56 | US ---
Date of service: 04/27/2018 HISTORY: transaminitis COMPARISON: 09/18/2014. TECHNIQUE: Sonographic evaluation of the abdomen. FINDINGS: LIVER: Measures 12.2 cm. Patent portal vein. Portal venous flow: Hepatopetal. Unremarkable echogenicity of the liver parenchyma. No mass. No intrahepatic bile duct dilatation. GALLBLADDER: Cholelithiasis. Negative study for gallbladder wall thickening, pericholecystic fluid, sonographic Gallardo's sign. COMMON BILE DUCT: Measures 3.2 mm. No stones. No dilatation. PANCREAS: Unremarkable as visualized. No mass. No ductal dilatation. RIGHT KIDNEY: Measures 5 x 9.4cm. Echogenic foci upper pole 4 mm. Sub cm cyst midpole. LEFT KIDNEY: Measures 5.3 x 9.0cm. Normal echogenicity. No calculus, mass, or hydronephrosis. Incompletely visualized cyst 1.3 x 1.9 cm. SPLEEN: Normal in size and contour. No mass. AORTA: No aneurysmal dilatation. IVC: Unremarkable. OTHER FINDINGS: Incompletely visualized right pleural effusion. IMPRESSION: Cholelithiasis. No sonographic evidence of acute cholecystitis. Nonobstructing right renal calculus disease. Incompletely visualize/characterize cyst left kidney. Follow-up dedicated renal ultrasound recommended in 3 months.
[2018-04-27] MEDS: Insulin Detemir 100 Units/ml Inj SC SCH (22:04)
[2018-04-28] MEDS: Insulin Lispro (humaLOG) 100 Units/ml Inj SC SCH ×7 (06:42→21:30)
[2018-04-28] MEDS: Levothyroxine 25 MCG TAB PO SCH (06:42)
[2018-04-28] MEDS: Albuterol-Ipratrop 3 mg / 0.5 (3 ml) UD INH SCH ×4 (07:14→19:02)
[2018-04-28 07:31] LABS: BASO % 0.1 % (0.0-2.0); HEMOGLOBIN 13.5 g/dL (12.0-16.0); LYMPH # 0.4 K/uL (1.0-4.3); LYMPH % 4.5 % (20.0-40.0); MEAN CELL VOLUME 98.1 fl (81.0-99.0); MEAN CORPUSCULAR HEMOGLOBIN 33.4 pg (27.0-31.0); MONO # 0.2 K/uL (0.0-0.8); MONO % 1.9 % (0.0-10.0); NEUT # 8.2 K/uL (1.8-7.0); NEUT % 93.5 % (50.0-75.0); PLATELET COUNT 88 K/uL (130-400); RBC 4.03 Mil/uL (3.80-5.20); RED CELL DISTRIBUTION WIDTH 14.7 % (11.5-14.5); WHITE BLOOD COUNT 8.8 K/uL (4.8-10.8)
[2018-04-28 07:38] LABS: B-TYPE NATRIURETIC PEPTIDE 5670 pg/ml (0-900)
[2018-04-28 07:42] LABS: ALB/GLOB RATIO 0.8 (1.0-2.1); ALBUMIN 3.4 g/dL (3.5-5.0); ALT/SGPT 126 U/L (9-52); AST/SGOT 101 U/L (14-36); BLOOD UREA NITROGEN 46 mg/dl (7-17); GFR NON-AFRICAN AMERICAN 53
[2018-04-28] MEDS: Magnesium Oxide 400 mg Tab UD PO SCH ×2 (08:55→16:41)
[2018-04-28] MEDS: Ergocalciferol 50,000 Intl Units Cap PO SCH (08:56)
[2018-04-28] MEDS: Omega-3-Acid Ethyl Esters 1 GM Cap PO SCH (08:57)
[2018-04-28] MEDS: Enoxaparin 40 mg Syringe SC SCH (08:59)
[2018-04-28 11:08] LABS: BANDS 2 % (0-2); LYMPHOCYTE 5 % (20-50); MONOCYTE 1 % (0-10); NEUTROPHIL 92 % (42-75); PLATELET ESTIMATE DECREASED (NORMAL); TOTAL CELLS COUNTED 100
[2018-04-28 11:09] LABS: ANISOCYTOSIS SLIGHT
[2018-04-28] MEDS: diltiaZEM 120 mg/24 Hours CD Cap PO SCH (11:54)
--- NOTE | 2018-04-28 19:09 | CP.PCM.CON ---
History of Present Illness - History of Present Illness History of Present Illness: pt admitted with chf exac. echo from 2015 shows severe mr, severe tr and phtn. I reviewed the images. pt states her sob, leatha and orthopnea have improved since admission. per pt and family she was recently d.c. from outside center after being treated for chf exac. echo done there is unavailable at this time. ekg shows av pacing. pt denies cp, palp, nvdc. Review of Systems - Constitutional Constitutional: As Per HPI. absent: Anorexia, Chills, Daytime Sleepiness, Excessive Sweating, Fatigue, Fever, Frequent Falls, Headache, Increased Appetite , Lethargy, Malaise, Night Sweats, Snoring, Sleep Apnea, Weight Gain, Weight Loss, Weakness, Other - EENT Eyes: As Per HPI. absent: Blind Spots, Blurred Vision, Change in Vision, Decreased Night Vision, Diplopia, Discharge, Dry Eye, Exophthalmos, Floaters, Irritation, Itchy Eyes, Loss of Peripheral Vision, Pain, Photophobia, Requires Corrective Lenses, Sees Flashes, Spots in Vision, Tunnel Vision, Other Visual Disturbances, Loss of Vision, Other Ears: As Per HPI. absent: Decreased Hearing, Ear Discharge, Ear Pain, Tinnitus , Abnormal Hearing, Disequilibrium, Dizziness, Other Nose/Mouth/Throat: As Per HPI. absent: Epistaxis, Nasal Congestion, Nasal Discharge, Nasal Obstruction, Nasal Trauma, Nose Pain, Post Nasal Drip, Sinus Pain, Sinus Pressure, Bleeding Gums, Change in Voice, Dental Pain, Dry Mouth, Dysphagia, Halitosis, Hoarsness, Lip Swelling, Mouth Lesions, Mouth Pain, Odynophagia, Sore Throat, Throat Swelling, Tongue Swelling, Facial Pain, Neck Pain, Neck Mass, Other - Breasts Breasts: As Per HPI. absent: Change in Shape, Mass, Pain, Nipple Discharge, Nipple Inversion, Skin Changes, Swelling, Other - Cardiovascular Cardiovascular: As Per HPI, Dyspnea on Exertion, Edema, Orthopnea. absent: Acrocyanosis, Chest Pain, Chest Pain at Rest, Chest Pain with Activity, Claudication, Diaphoresis, Dyspnea, Irregular Heart Rhythm, Pain Radiating to Arm/Neck/Jaw, Leg Edema, Leg Ulcers, Lightheadedness, Palpitations, Paroxysmal Nocturnal Dyspnea, Pedal Edema, Radiating Pain, Rapid Heart Rate, Slow Heart Rate, Syncope, Other - Respiratory Respiratory: As Per HPI. absent: Cough, Dyspnea, Hemoptysis, Dyspnea on Exertion, Wheezing, Snoring, Stridor, Pain on Inspiration, Chest Congestion, Excessive Mucous Production, Change in Mucous Color, Pain with Coughing, Other - Gastrointestinal Gastrointestinal: As Per HPI. absent: Abdominal Pain, Belching, Bloating, Change in Bowel Habits, Change in Stool Character, Coffee Ground Emesis, Constipation, Cramping, Diarrhea, Dyspepsia, Dysphagia, Early Satiety, Excessive Flatus, Fecal Incontinence, Heartburn, Hematemesis, Hematochezia, Loose Stools, Melena, Nausea, Odynophagia, Temesmus, Vomiting, Other - Menstruation Menstruation: As Per HPI. absent: Amenorrhea, Amenorrhea/ Control, Currently Menstual, Cycle <21 Days, Cycle >35 Days, Cycle Variable, Menses 1-7 Days, Menses >/= 8 Days, Menses Variable, Cycle > 4 Weeks Between, No Menses for 6 Months, Heavy Menses, Light Menses, Normal Menses, Spotting Between Cycles , S/P Hysterectomy, Menopausal, Post Menopausal, Premenarche, Abnormal Vaginal Bleeding, Dysmenorrhea, Other - Musculoskeletal Musculoskeletal: As Per HPI. absent: Abnormal Gait, Arthralgias, Atrophy, Back Pain, Deformity, Joint Swelling, Limited Range of Motion, Loss of Height, Muscle Cramps, Muscle Weakness, Myalgias, Neck Pain, Numbness, Radiating Pain into Limb, Stiffness, Tingling, Other - Integumentary Integumentary: As Per HPI. absent: Acne, Alopecia, Bleeding Lesions, Change in Hair, Change in Nails, Change in Pigmentation, Changing Lesions, Dry Skin, Erythema, Furuncle, Hirsutism, Lesions, New Lesions, Non-Healing Lesions, Photosensitivity, Pruritus, Rash, Skin Pain, Skin Ulcer, Sores, Striae, Swelling , Unusual Bruising, Wounds, Jaundice, Other - Neurological Neurological: As Per HPI. absent: Abnormal Gait, Abnormal Hearing, Abnormal Movements, Abnormal Speech, Behavioral Changes, Burning Sensations, Confusion, Convulsions, Disequilibrium, Dizziness, Numbness, Focal Weakness, Frequent Falls , Headaches, Lack of Coordination, Loss of Vision, Memory Loss, Paresthesias, Radicular Pain, Restless Legs, Sensory Deficit, Syncope, Tingling, Tremor, Vertigo, Weakness, Other Visual Disturbances, Other - Psychiatric Psychiatric: As Per HPI. absent: Abnormal Sleep Pattern, Anhedonia, Anxiety, Auditory Hallucinations, Behavioral Changes, Change in Appetite, Change in Libido, Confusion, Depression, Difficulty Concentrating, Hallucinations, Homicidal Ideation, Hopelessness, Irritability, Memory Loss, Mood Swings, Panic Attacks, Paranoia, Suicidal Ideation, Visual Hallucinations, Tactile Hallucinations, Other - Endocrine Endocrine: As Per HPI. absent: Change in Body Appearance, Change in Libido, Cold Intolorance, Deepening of Voice, Excessive Sweating, Fatigue, Flushing, Heat Intolorance, Increase in Ring/Shoe/Hat Size, Palpitations, Polydipsia, Polyphagia, Polyuria, Other - Hematologic/Lymphatic Hematologic: As Per HPI. absent: Easy Bleeding, Easy Bruising, Lymphadenopathy , Other Past Patient History - Tetanus Immunizations Tetanus Immunization: Unknown - Past Medical History & Family History Past Medical History?: Yes - Past Social History Smoking Status: Never Smoked - CARDIAC Hx Atrial Fibrillation: Yes Hx Cardia Arrhythmia: Yes (A-FIB) Hx Congestive Heart Failure: Yes Hx Hypercholesterolemia: Yes Hx Hypertension: Yes Hx Pacemaker: Yes - PULMONARY Hx Asthma: Yes Hx Chronic Obstructive Pulmonary Disease (COPD): Yes Hx Pneumonia: Yes - NEUROLOGICAL Hx Neurological Disorder: Yes HX Cerebrovascular Accident: Yes - HEENT Hx HEENT Problems: Yes Hx Cataracts: Yes - RENAL Hx Chronic Kidney Disease: Yes Hx Kidney Stones: Yes - ENDOCRINE/METABOLIC Hx Hypothyroidism: Yes - HEMATOLOGICAL/ONCOLOGICAL Hx Anemia: Yes - INTEGUMENTARY Hx Dermatological Problems: No - MUSCULOSKELETAL/RHEUMATOLOGICAL Hx Arthritis: Yes - GASTROINTESTINAL Hx Gastrointestinal Disorders: Yes Hx Liver Failure: Yes - GENITOURINARY/GYNECOLOGICAL Hx Genitourinary Disorders: Yes Hx Incontinence: Yes - PSYCHIATRIC Hx Depression: Yes - SURGICAL HISTORY Hx Surgeries: Yes Hx Cataract Extraction: Yes (BILAT.) Hx Cardiac Catheterization: Yes Other/Comment: HX: CYSTO WITH STENT PLACED. HX: RECONSTRUCTION OF VAGINA. HX: CYSTOSCOPY RIGHT URETERAL STENT EXCHANGE(01/29/18) - ANESTHESIA Hx Anesthesia: Yes Hx Anesthesia Reactions: No Hx Malignant Hyperthermia: No Meds Allergies/Adverse Reactions: Allergies Allergy/AdvReac Type Severity Reaction Status Date / Time metoclopramide [From Reglan] Allergy ANAPHYLAXIS Verified 04/24/18 23:06 - Medications Medications: Current Medications Albuterol/Ipratropium (Duoneb 3 Mg/0.5 Mg (3 Ml) Ud) 3 ml INH RQID [facility] Last Admin: 04/28/18 19:02 Dose: 3 ml Ascorbic Acid (Vitamin C 500 Mg Tab) 500 mg PO DAILY [facility] Last Admin: 04/28/18 08:56 Dose: 500 mg Calcium Acetate (Phoslo) 667 mg PO DAILY [facility] Carvedilol (Coreg) 6.25 mg PO Q12 [facility] Last Admin: 04/28/18 08:57 Dose: 6.25 mg Dextrose (Dextrose 50% Inj) 0 ml IV STAT PRN; Protocol PRN Reason: Hypoglycemia Protocol Dextrose (Glutose 15) 0 gm PO ONCE PRN; Protocol PRN Reason: Hypoglycemia Protocol Diltiazem HCl (Cardizem Cd) 120 mg PO DAILY [facility] Last Admin: 04/28/18 11:54 Dose: 120 mg Enoxaparin Sodium (Lovenox) 40 mg SC DAILY [facility] PRN Reason: Protocol Last Admin: 04/28/18 08:59 Dose: 40 mg Ergocalciferol (Drisdol 50,000 Intl Units Cap) 1 cap PO QWK [facility] Last Admin: 04/28/18 08:56 Dose: 1 cap Escitalopram Oxalate (Lexapro) 10 mg PO DAILY [facility] Last Admin: 04/28/18 08:58 Dose: 10 mg Ferrous Sulfate (Feosol) 325 mg PO TID [facility] Last Admin: 04/28/18 16:40 Dose: 325 mg Furosemide (Lasix) 40 mg IVP BID [facility] Last Admin: 04/28/18 16:40 Dose: 40 mg Glucagon (Glucagen Diagnostic Kit) 0 mg IM STAT PRN; Protocol PRN Reason: Hypoglycemia Protocol Insulin Detemir (Levemir) 10 units SC HS [facility] Last Admin: 04/27/18 22:04 Dose: 10 units Insulin Human Lispro (Humalog) 0 units SC ACHS [facility] PRN Reason: Protocol Last Admin: 04/28/18 16:39 Dose: 4 units Insulin Human Lispro (Humalog) 10 units SC TIDAC [facility] Last Admin: 04/28/18 16:39 Dose: 10 units Lactulose (Enulose) 20 gm PO BID [facility] Last Admin: 04/28/18 16:41 Dose: 20 gm Levothyroxine Sodium (Synthroid) 25 mcg PO DAILY@0630 [facility] Last Admin: 04/28/18 06:42 Dose: 25 mcg Magnesium Oxide (Mag-Ox) 400 mg PO BID [facility] Last Admin: 04/28/18 16:41 Dose: 400 mg Montelukast Sodium (Singulair) 10 mg PO HS [facility] Last Admin: 04/27/18 22:04 Dose: 10 mg [id number] Ethyl Esters (Lovaza) 1 gm PO DAILY [facility] Last Admin: 04/28/18 08:57 Dose: 1 gm Potassium Chloride (K-Dur 20 Meq Er Tab) 20 meq PO BID [facility] Last Admin: 04/27/18 17:38 Dose: 20 meq Prednisone (Prednisone Tab) 40 mg PO DAILY [facility] Last Admin: 04/27/18 22:04 Dose: 40 mg Spironolactone (Aldactone) 25 mg PO DAILY [facility] Last Admin: 04/28/18 08:57 Dose: 25 mg Physical Exam - Constitutional Appears: Non-toxic - Head Exam Head Exam: ATRAUMATIC, NORMAL INSPECTION, NORMOCEPHALIC - Eye Exam Eye Exam: EOMI, Normal appearance, PERRL Pupil Exam: NORMAL ACCOMODATION, PERRL - ENT Exam ENT Exam: Mucous Membranes Moist, Normal Exam - Neck Exam Neck exam: Positive for: Normal Inspection - Respiratory Exam Respiratory Exam: Decreased Breath Sounds, NORMAL BREATHING PATTERN Additional comments: r > l decrease b/s. mild crackles. no wheeze - Cardiovascular Exam Cardiovascular Exam: Irregular Rhythm, +S1, +S2, Systolic Murmur - GI/Abdominal Exam GI & Abdominal Exam: Normal Bowel Sounds, Soft. absent: Bruit, Diminished Bowel Sounds, Distended, Firm, Guarding, Hernia, Hyperactive Bowel Sounds, Hypoactive Bowel Sounds, Mass, Organomegaly, Pulsatile Mass, Rebound, Rigid, Tenderness - Rectal Exam Rectal Exam: Deferred - Extremities Exam Additional comments: mild pitting edema bl - Back Exam Back exam: NORMAL INSPECTION - Neurological Exam Neurological exam: Alert, CN II-XII Intact, Normal Gait, Oriented x3, Reflexes Normal - Psychiatric Exam Psychiatric exam: Normal Affect, Normal Mood - Skin Skin Exam: Dry, Intact, Normal Color, Warm Results - Vital Signs Recent Vital Signs: Last Vital Signs Temp 97.9 F 04/28/18 16:26 Pulse 77 04/28/18 16:26 Resp 18 09/22/18 16:26 BP 137/67 04/28/18 16:40 Pulse Ox 98 04/28/18 16:26 - Labs Result Diagrams: 04/28/18 06:00 04/28/18 06:00 Labs: Laboratory Results - last 24 hr 04/27/18 04/28/18 04/28/18 22:00 05:27 06:00 WBC 8.8 RBC 4.03 Hgb 13.5 Hct 39.5 MCV 98.1 MCH 33.4 H MCHC 34.0 RDW 14.7 H Plt Count 88 L MPV 12.0 H Neut % (Auto) 93.5 H Lymph % (Auto) 4.5 L [place] % (Auto) 1.9 Eos % (Auto) 0.0 Baso % (Auto) 0.1 Neut # (Auto) 8.2 H Lymph # (Auto) 0.4 L [place] # (Auto) 0.2 Eos # (Auto) 0.0 Baso # (Auto) 0.0 Neutrophils % (Manual) 92 H Band Neutrophils % 2 Lymphocytes % (Manual) 5 L Monocytes % (Manual) 1 Platelet Estimate Decreased L Anisocytosis (manual) Slight Sodium Potassium Chloride Carbon Dioxide Anion Gap BUN Creatinine Est GFR ( Amer) Est GFR (Non-Af Amer) POC Glucose (mg/dL) 371 H 224 H Random Glucose Calcium Phosphorus Magnesium Total Bilirubin AST ALT Alkaline Phosphatase NT-Pro-B Natriuret Pep Total Protein Albumin Globulin Albumin/Globulin Ratio 04/28/18 04/28/18 04/28/18 06:00 11:35 15:46 WBC RBC Hgb Hct MCV MCH MCHC RDW Plt Count MPV Neut % (Auto) Lymph % (Auto) Vermilion % (Auto) Eos % (Auto) Baso % (Auto) Neut # (Auto) Lymph # (Auto) [place] # (Auto) Eos # (Auto) Baso # (Auto) Neutrophils % (Manual) Band Neutrophils % Lymphocytes % (Manual) Monocytes % (Manual) Platelet Estimate Anisocytosis (manual) Sodium 137 Potassium 5.3 H Chloride 97 L Carbon Dioxide 35 H Anion Gap 10 BUN 46 H Creatinine 1.0 Est GFR ( Amer) > 60 Est GFR (Non-Af Amer) 53 POC Glucose (mg/dL) 321 H 254 H Random Glucose 252 H Calcium 10.0 Phosphorus 2.7 Magnesium 2.2 Total Bilirubin 0.7 AST 101 H D ALT 126 H Alkaline Phosphatase 84 NT-Pro-B Natriuret Pep 5670 H Total Protein 7.5 Albumin 3.4 L Globulin 4.1 H Albumin/Globulin Ratio 0.8 L Assessment & Plan (1) Severe mitral insufficiency Status: Acute (2) Paced rhythm on director of cardiac cath lab Status: Acute (3) CHF (congestive heart failure) Status: Acute Priority: Medium (4) HTN (hypertension) Status: Chronic (5) Pulmonary hypertension Status: Chronic Priority: Medium - Assessment and Plan (Free Text) Plan: chf is due to mr. must keep bp low and mild intravasc depletion. should consider eval for mv if sx continue.
--- NOTE | 2018-04-28 20:52 | CP.PCM.PN ---
Subjective - Date & Time of Evaluation Date of Evaluation: 04/28/18 Time of Evaluation: 09:00 - Subjective Subjective: patient seen and examined at bedside. states feels better than yesterday. currently with gomez with good urine output. no other complaints offered at this time. pending cardiac eval. Objective - Vital Signs/Intake and Output Vital Signs (last 24 hours): Temp Pulse Resp BP Pulse Ox 97.9 F 65 18 112/62 98 04/28/18 19:48 04/28/18 19:48 04/28/18 19:48 04/28/18 19:48 04/28/18 19:48 Intake and Output: 04/28/18 04/29/18 18:59 06:59 Intake Total 650 Output Total 600 Balance 50 - Medications Medications: Current Medications Albuterol/Ipratropium (Duoneb 3 Mg/0.5 Mg (3 Ml) Ud) 3 ml INH RQID [facility] Last Admin: 04/28/18 19:02 Dose: 3 ml Ascorbic Acid (Vitamin C 500 Mg Tab) 500 mg PO DAILY [facility] Last Admin: 04/28/18 08:56 Dose: 500 mg Calcium Acetate (Phoslo) 667 mg PO DAILY [facility] Carvedilol (Coreg) 6.25 mg PO Q12 [facility] Last Admin: 04/28/18 08:57 Dose: 6.25 mg Dextrose (Dextrose 50% Inj) 0 ml IV STAT PRN; Protocol PRN Reason: Hypoglycemia Protocol Dextrose (Glutose 15) 0 gm PO ONCE PRN; Protocol PRN Reason: Hypoglycemia Protocol Diltiazem HCl (Cardizem Cd) 120 mg PO DAILY [facility] Last Admin: 04/28/18 11:54 Dose: 120 mg Enoxaparin Sodium (Lovenox) 40 mg SC DAILY [facility] PRN Reason: Protocol Last Admin: 04/28/18 08:59 Dose: 40 mg Ergocalciferol (Drisdol 50,000 Intl Units Cap) 1 cap PO QWK [facility] Last Admin: 04/28/18 08:56 Dose: 1 cap Escitalopram Oxalate (Lexapro) 10 mg PO DAILY [facility] Last Admin: 04/28/18 08:58 Dose: 10 mg Ferrous Sulfate (Feosol) 325 mg PO TID [facility] Last Admin: 04/28/18 16:40 Dose: 325 mg Furosemide (Lasix) 40 mg IVP BID [facility] Last Admin: 04/28/18 16:40 Dose: 40 mg Glucagon (Glucagen Diagnostic Kit) 0 mg IM STAT PRN; Protocol PRN Reason: Hypoglycemia Protocol Insulin Detemir (Levemir) 10 units SC HS [facility] Last Admin: 04/27/18 22:04 Dose: 10 units Insulin Human Lispro (Humalog) 0 units SC ACHS [facility] PRN Reason: Protocol Last Admin: 04/28/18 16:39 Dose: 4 units Insulin Human Lispro (Humalog) 10 units SC TIDAC [facility] Last Admin: 04/28/18 16:39 Dose: 10 units Lactulose (Enulose) 20 gm PO BID [facility] Last Admin: 04/28/18 16:41 Dose: 20 gm Levothyroxine Sodium (Synthroid) 25 mcg PO DAILY@0630 [facility] Last Admin: 04/28/18 06:42 Dose: 25 mcg Magnesium Oxide (Mag-Ox) 400 mg PO BID [facility] Last Admin: 04/28/18 16:41 Dose: 400 mg Montelukast Sodium (Singulair) 10 mg PO [facility] Last Admin: 04/27/18 22:04 Dose: 10 mg [id number] Ethyl Esters (Lovaza) 1 gm PO DAILY [facility] Last Admin: 04/28/18 08:57 Dose: 1 gm Potassium Chloride (K-Dur 20 Meq Er Tab) 20 meq PO BID [facility] Last Admin: 04/27/18 17:38 Dose: 20 meq Prednisone (Prednisone Tab) 40 mg PO DAILY [facility] Last Admin: 04/27/18 22:04 Dose: 40 mg Spironolactone (Aldactone) 25 mg PO DAILY [facility] Last Admin: 04/28/18 08:57 Dose: 25 mg - Labs Labs: 04/28/18 06:00 04/28/18 06:00 PT 12.7 Seconds (9.8-13.1) 04/24/18 23:40 INR 1.1 04/24/18 23:40 APTT 31.3 Seconds (25.6-37.1) 04/24/18 23:40 - Constitutional Appears: Non-toxic, No Acute Distress - Head Exam Head Exam: ATRAUMATIC, NORMAL INSPECTION, NORMOCEPHALIC - Eye Exam Eye Exam: Normal appearance - Neck Exam Neck Exam: Normal Inspection - Respiratory Exam Respiratory Exam: Clear to Ausculation Bilateral, Rales, NORMAL BREATHING PATTERN. absent: Respiratory Distress - Cardiovascular Exam Cardiovascular Exam: Irregular Rhythm, +S1, +S2, Murmur - GI/Abdominal Exam GI & Abdominal Exam: Soft, Normal Bowel Sounds. absent: Tenderness - Back Exam Back Exam: NORMAL INSPECTION - Neurological Exam Neurological Exam: Alert, Awake - Psychiatric Exam Psychiatric exam: Normal Affect, Normal Mood - Skin Skin Exam: Dry, Intact, Normal Color, Warm Assessment and Plan - Assessment and Plan (Free Text) Assessment: 82 y/o female with PMHX of CHF w/ Pacemaker, COPD, Afibb, DM, HTN admitted due to CHF exacerbation. Improvement from yesterday. plan Elevated ProBNP may be secondary to Pulmonary HTN w/ subsequent Right ventricular failure.(This would explain elevated Pro-BNP elevation) vs decompensated CHF vs less likely COPD exacerbation. d/c gomez, trial free voiding c/w lasix d/c prednisone Cardiology consulted, Dr. Rose (patient's player services representative), does not come to hospital anymore, consulted Dr. Ponce instead, pending eval Pulmonology Consulted, Dr. Sellers. COPD/Pulmonary HTN, C/w duoneds q6, PFT's outpatient, F/U with Private rope cutter, Dr. Jerry Transaminitis, Likely Congestive Hepatopathy. Abdominal US reviewed, no cirrhosis noted
[2018-04-28] MEDS: Insulin Detemir 100 Units/ml Inj SC SCH (21:29)
[2018-04-29] MEDS: Levothyroxine 25 MCG TAB PO SCH (06:30)
[2018-04-29] MEDS: Insulin Lispro (humaLOG) 100 Units/ml Inj SC SCH ×4 (06:31→12:00)
[2018-04-29 07:21] LABS: ALB/GLOB RATIO 0.8 (1.0-2.1); ALT/SGPT 231 U/L (9-52); AST/SGOT 224 U/L (14-36); BLOOD UREA NITROGEN 42 mg/dl (7-17); CALCIUM 9.5 mg/dL (8.4-10.2); GFR NON-AFRICAN AMERICAN 60
[2018-04-29 07:22] LABS: B-TYPE NATRIURETIC PEPTIDE 3310 pg/ml (0-900)
[2018-04-29] MEDS: Albuterol-Ipratrop 3 mg / 0.5 (3 ml) UD INH SCH ×3 (07:44→15:36)
[2018-04-29 08:25] VITALS: RESP 20
[2018-04-29] MEDS: diltiaZEM 120 mg/24 Hours CD Cap PO SCH (08:54)
[2018-04-29] MEDS: Magnesium Oxide 400 mg Tab UD PO SCH (08:54)
[2018-04-29] MEDS: Enoxaparin 40 mg Syringe SC SCH (08:56)
[2018-04-29] MEDS: Omega-3-Acid Ethyl Esters 1 GM Cap PO SCH (08:57)
--- NOTE | 2018-04-29 13:54 | CP.PCM.DIS ---
Provider - Provider Date of Admission: 04/27/18 07:03 Attending physician: Stevie Jenkins MD Primary care physician: Yoav Colindres MD Time Spent in preparation of Discharge (in minutes): 30 Diagnosis - Discharge Diagnosis (1) CHF (congestive heart failure) Status: Acute Priority: Medium Hospital Course - Lab Results Lab Results: Micro Results 04/24/18 23:40 Blood-Venous Blood Culture - Preliminary NO GROWTH AFTER 4 DAYS Most Recent Lab Values WBC 8.8 K/uL (4.8-10.8) 04/28/18 06:00 RBC 4.03 Mil/uL (3.80-5.20) 04/28/18 06:00 Hgb 13.5 g/dL (12.0-16.0) 04/28/18 06:00 Hct 39.5 % (34.0-47.0) 04/28/18 06:00 MCV 98.1 fl (81.0-99.0) 04/28/18 06:00 MCH 33.4 pg (27.0-31.0) H 04/28/18 06:00 MCHC 34.0 g/dL (33.0-37.0) 04/28/18 06:00 RDW 14.7 % (11.5-14.5) H 04/28/18 06:00 Plt Count 88 K/uL (130-400) L 04/28/18 06:00 MPV 12.0 fl (7.2-11.7) H 04/28/18 06:00 Neut % (Auto) 93.5 % (50.0-75.0) H 04/28/18 06:00 Lymph % (Auto) 4.5 % (20.0-40.0) L 04/28/18 06:00 Travis % (Auto) 1.9 % (0.0-10.0) 04/28/18 06:00 Eos % (Auto) 0.0 % (0.0-4.0) 04/28/18 06:00 Baso % (Auto) 0.1 % (0.0-2.0) 04/28/18 06:00 Neut # (Auto) 8.2 K/uL (1.8-7.0) H 04/28/18 06:00 Lymph # (Auto) 0.4 K/uL (1.0-4.3) L 04/28/18 06:00 Travis # (Auto) 0.2 K/uL (0.0-0.8) 04/28/18 06:00 Eos # (Auto) 0.0 K/uL (0.0-0.7) 04/28/18 06:00 Baso # (Auto) 0.0 K/uL (0.0-0.2) 04/28/18 06:00 Total Counted Cancelled 04/27/18 04:20 Neutrophils % (Manual) 92 % (42-75) H 04/28/18 06:00 Band Neutrophils % 2 % (0-2) 04/28/18 06:00 Lymphocytes % (Manual) 5 % (20-50) L 04/28/18 06:00 Reactive Lymphs % Cancelled 04/27/18 04:20 Monocytes % (Manual) 1 % (0-10) 04/28/18 06:00 Eosinophils % (Manual) Cancelled 04/27/18 04:20 Basophils % (Manual) Cancelled 04/27/18 04:20 Metamyelocytes % Cancelled 04/27/18 04:20 Myelocytes % Cancelled 04/27/18 04:20 Promyelocytes % Cancelled 04/27/18 04:20 Blast Cells % Cancelled 04/27/18 04:20 Plasma Cell % (Manual) Cancelled 04/27/18 04:20 Nucleated RBC % Cancelled 04/27/18 04:20 Hypersegmented Polys Cancelled 04/27/18 04:20 Smudge Cells Cancelled 04/27/18 04:20 Toxic Granulation Cancelled 04/27/18 04:20 Dohle Bodies Cancelled 04/27/18 04:20 Yonis Rods Cancelled 04/27/18 04:20 Platelet Estimate Decreased (NORMAL) L 04/28/18 06:00 Plt Clumps, EDTA Cancelled 04/27/18 04:20 Large Platelets Cancelled 04/27/18 04:20 Giant Platelets Cancelled 04/27/18 04:20 RBC Morphology Normal (NORMAL) 04/26/18 05:39 Polychromasia Cancelled 04/27/18 04:20 Hypochromasia (manual) Cancelled 04/27/18 04:20 Poikilocytosis (manual Cancelled 04/27/18 04:20 Basophilic Stippling Cancelled 04/27/18 04:20 Anisocytosis (manual) Slight 04/28/18 06:00 Microcytosis (manual) Cancelled 04/27/18 04:20 Macrocytosis (manual) Cancelled 04/27/18 04:20 Spherocytes Cancelled 04/27/18 04:20 Sickle Cells Cancelled 04/27/18 04:20 Target Cells Cancelled 04/27/18 04:20 Tear Drop Cells Cancelled 04/27/18 04:20 Ovalocytes Cancelled 04/27/18 04:20 Stomatocytes Cancelled 04/27/18 04:20 Helmet Cells Cancelled 04/27/18 04:20 [place] Bodies Cancelled 04/27/18 04:20 [place] Cells Cancelled 04/27/18 04:20 Acanthocytes (Spur) Cancelled 04/27/18 04:20 Rouleaux Cancelled 04/27/18 04:20 Schistocytes Cancelled 04/27/18 04:20 PT 12.7 Seconds (9.8-13.1) 04/24/18 23:40 INR 1.1 04/24/18 23:40 APTT 31.3 Seconds (25.6-37.1) 04/24/18 23:40 pO2 51 mm/Hg (30-55) 04/24/18 23:54 VBG pH 7.44 (7.32-7.43) H 04/24/18 23:54 VBG pCO2 51 mmHg (40-60) 04/24/18 23:54 VBG HCO3 31.6 mmol/L 04/24/18 23:54 VBG Total CO2 36.2 mmol/L (22-28) H 04/24/18 23:54 VBG O2 Sat (Calc) 91.4 % (40-65) H 04/24/18 23:54 VBG Base Excess 8.9 mmol/L (0.0-2.0) H 04/24/18 23:54 VBG Potassium 4.9 mmol/L (3.6-5.2) 04/24/18 23:54 Sodium 132.0 mmol/L (132-148) 04/24/18 23:54 Chloride 98.0 mmol/L (98-107) 04/24/18 23:54 Glucose 209 mg/dL (65-105) H 04/24/18 23:54 Lactate 2.3 mmol/L (0.7-2.1) H 04/24/18 23:54 FiO2 21.0 % 04/24/18 23:54 Sodium 136 mmol/l (132-148) 04/29/18 05:20 Potassium 4.8 MMOL/L (3.6-5.0) 04/29/18 05:20 Chloride 96 mmol/L (98-107) L 04/29/18 05:20 Carbon Dioxide 33 mmol/L (22-30) H 04/29/18 05:20 Anion Gap 12 (10-20) 04/29/18 05:20 BUN 42 mg/dl (7-17) H 04/29/18 05:20 Creatinine 0.9 mg/dl (0.7-1.2) 04/29/18 05:20 Est GFR ( Amer) > 60 04/29/18 05:20 Est GFR (Non-Af Amer) 60 04/29/18 05:20 POC Glucose (mg/dL) 147 mg/dL (65-110) H 04/29/18 10:51 Random Glucose 240 mg/dL (65-105) H 04/29/18 05:20 Hemoglobin A1c 7.1 % (4.2-6.5) H D 04/26/18 06:28 Calcium 9.5 mg/dL (8.4-10.2) 04/29/18 05:20 Phosphorus 2.7 mg/dl (2.5-4.5) 04/28/18 06:00 Magnesium 2.2 MG/DL (1.6-2.3) 04/28/18 06:00 Total Bilirubin 0.6 mg/dl (0.2-1.3) 04/29/18 05:20 AST 224 U/L (14-36) H D 04/29/18 05:20 ALT 231 U/L (9-52) H D 04/29/18 05:20 Alkaline Phosphatase 72 U/L (38-126) 04/29/18 05:20 Ammonia 9 umo/L (11-51) L 04/26/18 12:07 Troponin I 0.0540 ng/mL (0.00-0.120) 04/24/18 23:40 NT-Pro-B Natriuret Pep 3310 pg/ml (0-900) H 04/29/18 05:20 Total Protein 6.8 G/DL (6.3-8.2) 04/29/18 05:20 Albumin 3.0 g/dL (3.5-5.0) L 04/29/18 05:20 Globulin 3.8 gm/dL (2.2-3.9) 04/29/18 05:20 Albumin/Globulin Ratio 0.8 (1.0-2.1) L 04/29/18 05:20 TSH 3rd Generation 5.01 mIU/ML (0.46-4.68) H 04/24/18 23:40 Venous Blood Potassium 4.9 mmol/L (3.6-5.2) 04/24/18 23:54 - Hospital Course Hospital Course: 82 y/o female with PMHX of CHF w/ Pacemaker, COPD, Afibb, DM, HTN admitted due to CHF exacerbation. Improvement diuretics. Cardiology, Dr. Ponce, consulted. Patient with severe valvular disease. May need intervention as outpatient if symptoms persist. Patient asymptomatic and stable at time of discharge. Added aldactone to maintaince drugs. Discharge Exam - Head Exam Head Exam: ATRAUMATIC, NORMAL INSPECTION, NORMOCEPHALIC - Eye Exam Eye Exam: Normal appearance - Respiratory Exam Respiratory Exam: Clear to PA & Lateral, NORMAL BREATHING PATTERN - Cardiovascular Exam Cardiovascular Exam: REGULAR RHYTHM, +S1, +S2 - GI/Abdominal Exam GI & Abdominal Exam: Normal Bowel Sounds, Soft - Extremities Exam Extremities exam: normal inspection - Back Exam Back exam: NORMAL INSPECTION - Neurological Exam Neurological exam: Alert, Oriented x3 - Psychiatric Exam Psychiatric exam: Normal Affect, Normal Mood - Skin Skin Exam: Dry, Normal Color, Warm Discharge Plan - Discharge Medications Prescriptions: Spironolactone [Aldactone] 25 mg PO DAILY #30 tab - Follow Up Plan Condition: STABLE Disposition: HOME/ ROUTINE Instructions: Heart Failure (DC), Heart Failure (GEN), Pacemaker (DC), Pacemaker (GEN), Pulmonary Edema (DC), Pulmonary Edema (GEN), Ascites (DC), Ascites (GEN) Additional Instructions: patient to follow up with PCP and [facility] this week. Patient may need intervention for valvular disease if symptoms persist in future. Referrals: Yoav Colindres MD [Primary Care Provider] - Tony Rose MD [Staff Provider] -
[2018-04-29 16:35] VITALS: BP 126/61; PULSE 66; TEMP 97.6; O2SAT 98
--- NOTE | 2018-05-02 14:21 | PQF ---
PROVIDER RESPONSE TEXT: Diabetes type 2, uncontrolled REVIEWER QUERY TEXT: Documentation Clarification Your help is requested in clarifying the following clinical documentation, if you can please further specify in the medical record and discharge summary if there is a diagnosis to go along with clinical finding of elevated blood sugar. The patient's Clinical Indicators include: "blood sugars elevated 300-400 likely secondary to steroids " progress note 04/27 Dr. Wayne. Query created by: Niesha Chowdary on 04/30/2018 10:00 AM Electronically signed by: Stevie Jenkins MD 05/02/2018 2:18 PM
--- NOTE | 2018-05-02 14:21 | PQF ---
PROVIDER RESPONSE TEXT: Ckd stage 2 REVIEWER QUERY TEXT: Kidney Disease, Chronic CKD Stage Chronic Kidney Disease (CKD) is documented in the Medical Record. Please specify the disease stage ( includes probable or suspected) Such as: -- Chronic kidney disease Stage 1 -- Chronic kidney disease Stage 2 -- Chronic kidney disease Stage 3 -- Chronic kidney disease Stage 4 -- Chronic kidney disease Stage 5 -- Chronic kidney disease Stage 5, requiring dialysis -- End Stage Renal Disease -- Other, please specify Stages are defined by the [employer] as follows: CKD Stage I GFR >= 90 ml / min per 1.73 m2 and persistent albuminuria CKD Stage 2 GFR between 60 and 89 with persistent albuminuria CKD Stage 3 GFR between 30 and 59 CKD Stage 4 GFR between 15 and 29 CKD Stage 5 GFR between <15 or End Stage Renal Disease The patient's Clinical Indicators include: CKD Query created by: Niesha Chowdary on 04/30/2018 9:54 AM Electronically signed by: Stevie Jenkins MD 05/02/2018 2:18 PM
--- NOTE | 2018-05-22 00:44 | PQF ---
PROVIDER RESPONSE TEXT: ACUTE ON CHRONIC CHF DUE TO SEVERE MITRAL REGURGITATION (VALVULAR HEART DISEASE) AND DIASTOLIC DYSFUN CTION. REVIEWER QUERY TEXT: CHF Acuity and Type Congestive Heart Failure is documented in the Medical Record. Please document the type and acuity (in cludes probable or suspected) Such as: Type: -- Systolic -- Diastolic -- Combined -- Other, please specify Acuity: -- Acute -- Chronic -- Acute on chronic -- Other, please specify Also please document the underlying cause of the CHF (includes probable or suspected) The patient's Clinical Indicators include: BNP 3640 Query created by: Niesha Chowdary on 04/30/2018 9:53 AM Electronically signed by: Garrett NASSAR 05/22/2018 12:41 AM
== END 2018-04-29 16:45 | disposition home or self-care (01) | DRG 291 ==
LOC: H.ER 23:01 → H.ERHOLD 04-25 00:05 → H.TEL 04-25 03:00 → OBSVTOIN 04-27 07:03
PROVIDERS: ADMIT Family Medicine; ATTEND Family Medicine
PROC: 5A09557 Assistance with Respiratory Ventilation, Greater than 96 Consecutive Hours, Continuous Positive Airway Pressure (ICD-10-PCS; principal; 2018-04-25)
DX: I13.0 Hypertensive heart and chronic kidney disease with heart failure and stage 1 through stage 4 chronic kidney disease, or unspecified chronic kidney disease (principal); J96.21 Acute and chronic respiratory failure with hypoxia; I50.33 Acute on chronic diastolic (congestive) heart failure; I34.0 Nonrheumatic mitral (valve) insufficiency; I48.2 Chronic atrial fibrillation; D69.6 Thrombocytopenia, unspecified; I27.20 Pulmonary hypertension, unspecified; K74.60 Unspecified cirrhosis of liver; E03.9 Hypothyroidism, unspecified; Z95.0 Presence of cardiac pacemaker; E87.6 Hypokalemia; J44.9 Chronic obstructive pulmonary disease, unspecified; E78.00 Pure hypercholesterolemia, unspecified; F32.9 Major depressive disorder, single episode, unspecified; M19.90 Unspecified osteoarthritis, unspecified site; Z86.73 Personal history of transient ischemic attack (TIA), and cerebral infarction without residual deficits; E11.22 Type 2 diabetes mellitus with diabetic chronic kidney disease; N18.2 Chronic kidney disease, stage 2 (mild); E11.65 Type 2 diabetes mellitus with hyperglycemia

== ENCOUNTER 2018-06-04 23:52 | Inpatient (IN) | payer MEDICARE, OTHER ==
[2018-06-04 23:53] VITALS: BMI 26.6
[2018-06-05] MEDS ORDERED: Albuterol-Ipratrop 3 mg / 0.5 (3 ml) UD INH STA (00:03)
[2018-06-05] MEDS ORDERED: Nitroglycerin 2% Ointment Foilpak UD TOP STA (00:03)
[2018-06-05] MEDS ORDERED: Albuterol-Ipratrop 3 mg / 0.5 (3 ml) UD ONE (00:10)
[2018-06-05] MEDS ORDERED: Nitroglycerin 2% Ointment Foilpak UD TOP ONE (00:10)
[2018-06-05 00:40] LABS: BASO # 0.1 K/uL (0.0-0.2); BASO % 0.6 % (0.0-2.0); EOS % 0.4 % (0.0-4.0); HEMOGLOBIN 13.5 g/dL (12.0-16.0); LYMPH % 9.5 % (20.0-40.0); MEAN CELL VOLUME 98.5 fl (81.0-99.0); MEAN CORPUSCULAR HGB CONC 33.5 g/dL (33.0-37.0); MEAN PLATELET VOLUME 11.1 fl (7.2-11.7); MONO # 0.8 K/uL (0.0-0.8); NEUT # 8.4 K/uL (1.8-7.0); NEUT % 81.5 % (50.0-75.0); PLATELET COUNT 97 K/uL (130-400); RBC 4.09 Mil/uL (3.80-5.20); WHITE BLOOD COUNT 10.3 K/uL (4.8-10.8)
[2018-06-05 00:43] LABS: INR 1.2; PROTHROMBIN TIME 13.5 Seconds (9.8-13.1)
[2018-06-05 00:46] LABS: PARTIAL THROMBOPLASTIN TIME 26.2 Seconds (25.6-37.1)
[2018-06-05 00:50] LABS: ALB/GLOB RATIO 0.9 (1.0-2.1); ALBUMIN 3.8 g/dL (3.5-5.0); ALT/SGPT 57 U/L (9-52); AST/SGOT 103 U/L (14-36); BLOOD UREA NITROGEN 18 mg/dl (7-17); CALCIUM 9.7 mg/dL (8.4-10.2); GFR NON-AFRICAN AMERICAN > 60
[2018-06-05 00:57] LABS: B-TYPE NATRIURETIC PEPTIDE 2450 pg/ml (0-900)
--- NOTE | 2018-06-05 01:04 | ED PDOC ---
HPI: SOB/CHF/COPD Time Seen by Provider: 06/05/18 00:02 Chief Complaint (Nursing): Respiratory Distress Chief Complaint (Provider): Shortness of Breath History Per: Patient History/Exam Limitations: no limitations Onset/Duration Of Symptoms: Hrs (since ton1999) Current Symptoms Are (Timing): Still Present Additional History Per: Family (daughter) Additional Complaint(s): 82 year old female with extensive pmhx including CHF, pulmonary HTN, asthma and a-fib presents to the ED for evaluation of shortness of breath which was acute in onset starting around 1999 tonight. As per daughter, pt's symptoms are consistent with previous episodes of CHF exacerbation. Otherwise denies fever, nausea, vomiting, and chest pain. PMD: Yoav Colindres Past Medical History Reviewed: Historical Data Vital Signs: Last Vital Signs Temp Pulse 95 H 06/05/18 00:35 Resp 20 06/04/18 23:56 BP 145/82 06/04/18 23:56 Pulse Ox 98 06/04/18 23:56 - Medical History PMH: Anemia, Arthritis, Asthma, Atrial Fibrillation, Cardia Arrhythmia (A-FIB), CHF, COPD, Depression, HTN, Hypercholesterolemia, Hypothyroidism, Kidney Stones, Pneumonia, Chronic Kidney Disease - Surgical History Surgical History: Endoscopy, Pacemaker - Family History Family History: States: Unknown Family Hx - Social History Current smoker - smoking cessation education provided: No Alcohol: None Drugs: Denies - Home Medications Home Medications: Ambulatory Orders Medication Instructions Recorded RX: Escitalopram [Lexapro] 10 mg PO DAILY 09/13/14 RX: Magnesium Oxide 400 mg PO BID 09/13/14 RX: Montelukast [Singulair] 10 mg PO HS 09/13/14 RX: rifAXIMin [Xifaxan] 550 mg PO BID 09/13/14 RX: Albuterol 0.083% [Albuterol 3 ml NEB PRN PRN 12/13/17 0.083% Inhal Josefina (2.5 mg/3 ml) UD] RX: Anastrozole 1 mg PO DAILY 12/13/17 RX: Ascorbic Acid 500 mg PO DAILY 12/13/17 RX: Calcium Acetate 667 mg PO DAILY 12/13/17 RX: Carvedilol [Coreg] 6.25 mg PO Q12 12/13/17 RX: Colchicine [Colcrys] 0.6 mg PO DAILY 12/13/17 RX: Ergocalciferol (Vitamin D2) 50,000 unit PO QWK 12/13/17 [Vitamin D2] RX: Esomeprazole Magnesium [Nexium] 40 mg PO DAILY 12/13/17 RX: Febuxostat [Uloric] 40 mg PO DAILY 12/13/17 RX: Ferrous Sulfate [Feosol] 325 mg PO TID 12/13/17 RX: Furosemide [Lasix] 40 mg PO BID 12/13/17 RX: Insulin Glargine,Hum.rec.anlog 10 unit SQ HS 12/13/17 [Lantus Solostar] RX: Insulin Lispro [Humalog 10 unit SQ TID PRN 12/13/17 Kwikpen U-100] RX: Lactulose 30 ml PO TID 12/13/17 RX: Levothyroxine Sodium 25 mcg PO DAILY 12/13/17 RX: Howe-3 Fatty Acids [Howe-3] 1,000 mg PO DAILY 12/13/17 RX: Potassium Chloride 20 meq PO BID 12/13/17 RX: diltiaZEM [Cardizem] 120 mg PO DAILY 12/13/17 RX: Spironolactone [Aldactone] 25 mg PO DAILY #30 tab 04/29/18 - Allergies Allergies/Adverse Reactions: Allergies Allergy/AdvReac Type Severity Reaction Status Date / Time metoclopramide [From Reglan] Allergy ANAPHYLAXIS Verified 04/24/18 23:06 Review of Systems ROS Statement: Except As Marked, All Systems Reviewed And Found Negative Constitutional: Negative for: Fever Cardiovascular: Negative for: Chest Pain Respiratory: Positive for: Shortness of Breath Gastrointestinal: Negative for: Nausea, Vomiting Physical Exam - Reviewed Nursing Documentation Reviewed: Yes Vital Signs Reviewed: Yes - Physical Exam Appears: Positive for: In Acute Distress (moderate respiratory) Head Exam: Positive for: ATRAUMATIC, NORMOCEPHALIC Skin: Positive for: Normal Color, Warm, Dry Eye Exam: Positive for: Normal appearance ENT: Positive for: Normal ENT Inspection Neck: Positive for: Normal, Painless ROM, Supple Cardiovascular/Chest: Positive for: Tachycardia, Irregularly Irregular Respiratory: Positive for: Rales (biateral), Respiratory Distress Extremity: Positive for: Other (trace edema to bilateral LE) Neurologic/Psych: Positive for: Alert, Oriented (x3) - Laboratory Results Result Diagrams: 06/05/18 00:20 06/05/18 00:20 - ECG O2 Sat by Pulse Oximetry: 98 (NC) Pulse Ox Interpretation: Normal - Critical Care Total Time (In Min): 60 (BIPAP) Documented Critical Care: Time excludes all time spent performint seperately billable procedures Medical Decision Making Medical Decision Making: Time: 2 Initial Impression: 82 year old female with acute CHF Initial Plan: --BIPAP --Peak flow pre/post --Duoneb 9ml INH --Furosemide 60mg IV --Nitroglycerin 2% 1 ea TOP --CMP --BNP --Lact acid plasma --Trop I --CBC with differential --PTT / PT --CXR --Blood culture CXR: cardiomegaly and pulmonary vascular congestion noted. [id number] Pt will be admitted for acute exacerbation of CHF and respiratory distress. Case referred to Tone through Abdulaziz, her PMD. Scribe Attestation: Documented by Meagan Nur, acting as a scribe for Jesus Moore MD. Provider Scribe Attestation: All medical record entries made by the Scribe were at my direction and personally dictated by me. I have reviewed the chart and agree that the record accurately reflects my personal performance of the history, physical exam, medi darrian decision making, and the department course for this patient. I have also personally directed, reviewed, and agree with the discharge instructions and disposition. Disposition - Clinical Impression Clinical Impression: Respiratory failure, CHF (congestive heart failure) - Disposition Disposition Time: 01:00 Condition: FAIR - Pt Status Changed To: Hospital Disposition Of: Observation
[2018-06-05 04:08] LABS: BANDS 1 % (0-2); EOSINOPHIL 1 % (0-7); LYMPHOCYTE 6 % (20-50); MONOCYTE 6 % (0-10); NEUTROPHIL 86 % (42-75); TOTAL CELLS COUNTED 100
[2018-06-05 04:10] LABS: PLATELET ESTIMATE MARKEDLY DECREASED (NORMAL)
[2018-06-05 04:11] LABS: HYPOCHROMIC SLIGHT; OVALOCYTES SLIGHT
[2018-06-05 04:12] LABS: TEARDROP CELLS SLIGHT
--- NOTE | 2018-06-05 08:42 | RAD ---
Date of service: 06/05/2018 HISTORY: chest pain COMPARISON: 04/27/2018. FINDINGS: LUNGS: There are low lung volumes. There is moderate pulmonary venous congestion. PLEURA: Suspect small effusions. No pneumothorax. CARDIOVASCULAR: The heart is enlarged. Atherosclerotic aortic arch calcifications are present. There is stable position of right-sided permanent pacing device. OSSEOUS STRUCTURES: Within normal limits for the patient's age. VISUALIZED UPPER ABDOMEN: Normal. OTHER FINDINGS: None. IMPRESSION: Mild cardiomegaly and moderate pulmonary venous congestion. No acute findings.
[2018-06-05 11:12] LABS: ABG ALLEN TEST YES; ARTERIAL BLOOD GAS HCO3 31.8 mmol/L (21-28); ARTERIAL BLOOD GAS HEMOGLOBIN 13.1 g/dL (11.7-17.4); ARTERIAL BLOOD GAS O2 SAT 100.2 % (95-98); ARTERIAL BLOOD GAS PCO2 48 mm/Hg (35-45); ARTERIAL BLOOD GAS PH 7.46 (7.35-7.45); ARTERIAL BLOOD GAS PO2 158 mm/Hg (80-100); ARTERIAL BLOOD GAS TCO2 35.6 mmol/L (22-28)
[2018-06-05] MEDS ORDERED: INSULIN LISPRO 10 UNIT SQ PRN (11:13)
[2018-06-05] MEDS ORDERED: Ergocalciferol 50,000 Intl Units Cap PO SCH (11:15)
[2018-06-05] MEDS: Calcium Acetate 667 MG Capsule PO SCH (13:35)
[2018-06-05] MEDS: Pantoprazole 40 mg EC Tab PO SCH (13:38)
[2018-06-05] MEDS: Insulin Lispro (humaLOG) 100 Units/ml Inj SC SCH ×4 (13:50→22:31)
--- NOTE | 2018-06-05 14:36 | CP.PCM.HP ---
History of Present Illness - History of Present Illness History of Present Illness: 82 y/o female with PMHX of CHF w/ Pacemaker, COPD, Afibb, DM, HTN, Depression, Hypothyroidism, Liver Cirrhosis who presented to ED with complaints of worsening sob associated the acute onset last night associated with dry cough and ge neralized weakness x 1 day. As per daughter pt has multiple admissions in the past for same. She denies chest pain, LE edema, fever, chills, dysuria, N/V/D. PMD: Dr. Colindres PMHX: CHF, COPD, Afibb, DM, HTN, Liver Cirrhosis Medications: as bellow, Magnesium Oxide and M[place]teluekast, Rifaxamine SurgHx: Pacemaker Allergic to Reglan: Anaphylaxis Social: Lives with daughter. Non smoker, alcohol or ilicit drugs. Present on Admission - Present on Admission Any Indicators Present on Admission: No Review of Systems - Review of Systems All systems: reviewed and no additional remarkable complaints except (HPI) Past Patient History - Tetanus Immunizations Tetanus Immunization: Unknown - Past Medical History & Family History Past Medical History?: Yes - Past Social History Smoking Status: Never Smoked - CARDIAC Hx Cardiac Disorders: Yes - PULMONARY Hx Respiratory Disorders: Yes - NEUROLOGICAL Hx Neurological Disorder: No - HEENT Hx HEENT Problems: No - RENAL Hx Chronic Kidney Disease: Yes - ENDOCRINE/METABOLIC Hx Endocrine Disorders: No - HEMATOLOGICAL/ONCOLOGICAL Hx Blood Disorders: Yes Hx AIDS: No Hx Human Immunodeficiency Virus (HIV): No - INTEGUMENTARY Hx Dermatological Problems: No - MUSCULOSKELETAL/RHEUMATOLOGICAL Hx Musculoskeletal Disorders: No Hx Falls: Yes - GASTROINTESTINAL Hx Gastrointestinal Disorders: Yes Hx Liver Failure: Yes - GENITOURINARY/GYNECOLOGICAL Hx Genitourinary Disorders: No - PSYCHIATRIC Hx Psychophysiologic Disorder: Yes Hx Substance Use: No - SURGICAL HISTORY Hx Surgeries: Yes Hx Cataract Extraction: Yes (BILAT.) Hx Cardiac Catheterization: Yes Other/Comment: HX: CYSTO WITH STENT PLACED. HX: RECONSTRUCTION OF VAGINA. HX: CYSTOSCOPY RIGHT URETERAL STENT EXCHANGE(01/29/18) - ANESTHESIA Hx Anesthesia: Yes Hx Anesthesia Reactions: No Hx Malignant Hyperthermia: No Meds Allergies/Adverse Reactions: Allergies Allergy/AdvReac Type Severity Reaction Status Date / Time metoclopramide [From Reglan] Allergy ANAPHYLAXIS Verified 04/24/18 23:06 Physical Exam - Constitutional Appears: No Acute Distress - Head Exam Head Exam: NORMAL INSPECTION - Eye Exam Eye Exam: EOMI - Respiratory Exam Respiratory Exam: Decreased Breath Sounds, Rales (bases). absent: Accessory Muscle Use, Chest Wall Tenderness - Cardiovascular Exam Cardiovascular Exam: REGULAR RHYTHM, +S1, +S2. absent: Tachycardia - GI/Abdominal Exam GI & Abdominal Exam: Normal Bowel Sounds, Soft. absent: Distended, Tenderness - Extremities Exam Extremities exam: Negative for: pedal edema - Neurological Exam Neurological exam: Alert, Oriented x3 - Skin Skin Exam: Dry, Warm Results - Vital Signs Recent Vital Signs: Last Vital Signs Temp 98.1 F 06/05/18 12:30 Pulse 70 06/05/18 12:30 Resp 18 06/05/18 12:30 BP 145/73 06/05/18 12:30 Pulse Ox 98 06/05/18 12:30 - Labs Result Diagrams: 06/05/18 00:20 06/05/18 00:20 Labs: Laboratory Results - last 24 hr 06/05/18 06/05/18 06/05/18 00:20 00:20 00:20 WBC 10.3 RBC 4.09 Hgb 13.5 Hct 40.2 MCV 98.5 MCH 33.0 H MCHC 33.5 RDW 14.0 Plt Count 97 L MPV 11.1 Neut % (Auto) 81.5 H Lymph % (Auto) 9.5 L Wilkes % (Auto) 8.0 Eos % (Auto) 0.4 Baso % (Auto) 0.6 Neut # (Auto) 8.4 H Lymph # (Auto) 1.0 Wilkes # (Auto) 0.8 Eos # (Auto) 0.0 Baso # (Auto) 0.1 Neutrophils % (Manual) 86 H Band Neutrophils % 1 Lymphocytes % (Manual) 6 L Monocytes % (Manual) 6 Eosinophils % (Manual) 1 Platelet Estimate Markedly decreased L Hypochromasia (manual) Slight Tear Drop Cells Slight Ovalocytes Slight PT 13.5 H INR 1.2 APTT 26.2 pCO2 pO2 HCO3 ABG pH ABG Total CO2 ABG O2 Saturation ABG O2 Content ABG Base Excess ABG Hemoglobin ABG Carboxyhemoglobin POC ABG HHb (Measured) ABG Methemoglobin ABG O2 Capacity Andres Test A-a O2 Difference Hgb O2 Saturation Mechanical Rate FiO2 Inspiratory BiPAP Expiratory BiPAP Sodium 136 Potassium 4.9 Chloride 98 Carbon Dioxide 28 Anion Gap 15 BUN 18 H Creatinine 0.7 Est GFR ( Amer) > 60 Est GFR (Non-Af Amer) > 60 POC Glucose (mg/dL) Random Glucose 248 H Calcium 9.7 Total Bilirubin 1.5 H AST 103 H D ALT 57 H D Alkaline Phosphatase 92 Troponin I 0.0230 NT-Pro-B Natriuret Pep 2450 H Total Protein 8.0 Albumin 3.8 Globulin 4.3 H Albumin/Globulin Ratio 0.9 L 06/05/18 06/05/18 11:07 11:12 WBC RBC Hgb Hct MCV MCH MCHC RDW Plt Count MPV Neut % (Auto) Lymph % (Auto) Wilkes % (Auto) Eos % (Auto) Baso % (Auto) Neut # (Auto) Lymph # (Auto) Wilkes # (Auto) Eos # (Auto) Baso # (Auto) Neutrophils % (Manual) Band Neutrophils % Lymphocytes % (Manual) Monocytes % (Manual) Eosinophils % (Manual) Platelet Estimate Hypochromasia (manual) Tear Drop Cells Ovalocytes PT INR APTT pCO2 48 H pO2 158 H HCO3 31.8 H ABG pH 7.46 H ABG Total CO2 35.6 H ABG O2 Saturation 100.2 H ABG O2 Content 18.0 ABG Base Excess 8.9 H ABG Hemoglobin 13.1 ABG Carboxyhemoglobin 2.7 H POC ABG HHb (Measured) -0.2 L ABG Methemoglobin 1.5 ABG O2 Capacity 18.0 Andres Test Yes A-a O2 Difference 139.0 Hgb O2 Saturation 96.0 Mechanical Rate 12 FiO2 50.0 Inspiratory BiPAP 10 Expiratory BiPAP 5 Sodium Potassium Chloride Carbon Dioxide Anion Gap BUN Creatinine Est GFR ( Amer) Est GFR (Non-Af Amer) POC Glucose (mg/dL) 345 H Random Glucose Calcium Total Bilirubin AST ALT Alkaline Phosphatase Troponin I NT-Pro-B Natriuret Pep Total Protein Albumin Globulin Albumin/Globulin Ratio Assessment & Plan - Assessment and Plan (Free Text) Assessment: Pt is an 82 y/o female with PMHX of CHF w/ Pacemaker, COPD, Afibb, DM, HTN, Liver Cirrhosis admitted due to worsening sob likely secondary to CFH exacerba tion. Plan: - Respiratory symptoms likely secondary to CHF exacerbation - Respiratory status improved this morning. pt currently on BIPAP - labs reviewed, elevated PBNP - f/u echo report - C/W IV Lasix, scheduled duonebs - restarted on home medications - Pulmonology consulted, input appreciated - Cardio consulted, input appreciated - f/u labs in am - rest of plan as ordered Discussed case with Dr. Wayne
--- NOTE | 2018-06-05 16:00 | CARD ---
APPROVED REPORT Date of service: 06/05/2018 EKG Measurement Heart [id number] <Conclusion> Atrial fibrillation with occasional ventricular-paced complexes Nonspecific T wave changes Abnormal ECG
--- NOTE | 2018-06-05 16:44 | CARD ---
APPROVED REPORT Date of service: 06/05/2018 EXAM: Two-dimensional and M-mode echocardiogram with Doppler and color Doppler. Other Information Quality : GoodRhythm : NSR INDICATION Congestive Heart Failure Surgery/Intervention Pacemaker: 2D DIMENSIONS IVSd1.07 (0.7-1.1cm)LVDd4.08 (3.9-5.9cm) LVOT Diameter1.96 (1.8-2.4cm)PWd0.95 (0.7-1.1cm) IVSs1.28 (0.8-1.2cm)LVDs3.11 (2.5-4.0cm) FS (%) 23.9 %PWs1.19 (0.8-1.2cm) M-Mode DIMENSIONS Left Atrium (MM)5.35 (2.5-4.0cm)IVSd0.94 (0.7-1.1cm) Aortic Root2.76 (2.2-3.7cm)LVDd5.15 (4.0-5.6cm) Aortic Cusp Exc.1.62 (1.5-2.0cm)PWd1.21 (0.7-1.1cm) IVSs1.06 cmFS (%) 18 % LVDs4.21 (2.0-3.8cm)PWs1.03 cm Aortic Valve AoV Peak Ywqrhigc137.1cm/sAoV VTI19.7cmAO Peak GR.4mmHg LVOT Peak Ejwpseeg67.4cm/sLVOT VTI14.65cmAO Mean GR.3mmHg FILIBERTO (VMAX)1.97ql8WLB (VTI)1.49cm2 Mitral Valve E/A ratio0.0 TDI E/Lateral E'0.0E/Medial E'0.0 Tricuspid Valve TR Peak Wmxnoeub542aj/sRAP [id number] Peak Gr.60mmHg [id number] LEFT VENTRICLE The left ventricle is normal size. There is normal left ventricular wall thickness. The left ventricular systolic function is normal. The estimated ejection fraction is 55-60% No regional wall motion abnormalities noted.. The left ventricular diastolic function cannot be assessed due to underlying Atrial fibrillation. No left ventricle thrombus noted on this study. There is no ventricular septal defect visualized. There is no left ventricular aneurysm. There is no mass noted in the left ventricle. RIGHT VENTRICLE The right ventricle is normal size. There is normal right ventricular wall thickness. The right ventricular systolic function is normal. Pacemaker lead seen in right ventricle. ATRIA The left atrium is severely dilated. The right atrium size is normal. The interatrial septum is intact with no evidence for an atrial septal defect. AORTIC VALVE The aortic valve is normal in structure. No aortic regurgitation is present. There is no aortic valvular stenosis. There is no aortic valvular vegetation. MITRAL VALVE The mitral valve is normal in structure. There is no evidence of mitral valve prolapse. There is no mitral valve stenosis. There is moderate mitral valve regurgitation noted. TRICUSPID VALVE The tricuspid valve is normal in structure. There is moderate to severe tricuspid valve regurgitation noted. RVSP is calculated at 70 mm Hg. There is no tricuspid valve prolapse or vegetation. There is no tricuspid valve stenosis. PULMONIC VALVE The pulmonary valve is normal in structure. There is no pulmonic valvular regurgitation. There is no pulmonic valvular stenosis. GREAT VESSELS The aortic root is normal in size. The ascending aorta is normal in size. The pulmonary artery is normal. The IVC is normal in size and collapses >50% with inspiration. PERICARDIAL EFFUSION There is no pericardial effusion. There is no pleural effusion. <Conclusion> The estimated ejection fraction is 55-60% The left ventricular diastolic function cannot be assessed due to underlying Atrial fibrillation. Pacemaker lead seen in right ventricle. The left atrium is severely dilated, suggestive chronically elevated LA pressures. There is moderate mitral valve regurgitation noted. There is moderate to severe tricuspid valve regurgitation noted. RVSP is calculated at 70 mm Hg.
[2018-06-05] MEDS: Magnesium Oxide 400 mg Tab UD PO SCH (16:54)
[2018-06-05] MEDS: Insulin Detemir 100 Units/ml Inj SC SCH (22:07)
[2018-06-05] MEDS ORDERED: Insulin Detemir 100 Units/ml Inj SC ONE (22:09)
[2018-06-06 05:58] LABS: B-TYPE NATRIURETIC PEPTIDE 2930 pg/ml (0-900)
[2018-06-06 06:02] LABS: ALB/GLOB RATIO 0.9 (1.0-2.1); ALBUMIN 3.1 g/dL (3.5-5.0); ALT/SGPT 49 U/L (9-52); AST/SGOT 46 U/L (14-36); BLOOD UREA NITROGEN 21 mg/dl (7-17); CALCIUM 9.2 mg/dL (8.4-10.2); GFR NON-AFRICAN AMERICAN > 60
[2018-06-06] MEDS: Levothyroxine 25 MCG TAB PO SCH (06:25)
[2018-06-06] MEDS: Omega-3-Acid Ethyl Esters 1 GM Cap PO SCH (08:19)
[2018-06-06] MEDS: Insulin Lispro (humaLOG) 100 Units/ml Inj SC SCH ×7 (08:21→21:45)
[2018-06-06] MEDS: Magnesium Oxide 400 mg Tab UD PO SCH ×2 (08:25→16:48)
[2018-06-06] MEDS: Calcium Acetate 667 MG Capsule PO SCH (08:26)
[2018-06-06] MEDS: Pantoprazole 40 mg EC Tab PO SCH (08:27)
--- NOTE | 2018-06-06 15:21 | CP.PCM.PN ---
Subjective - Date & Time of Evaluation Date of Evaluation: 06/06/18 Time of Evaluation: 10:06 - Subjective Subjective: patient seen and examined today a bedside, breathing comfortable in NC at 2 lpm, reports feeling better though mild sob on exertion, no overnight events. Objective - Vital Signs/Intake and Output Vital Signs (last 24 hours): Temp Pulse Resp BP Pulse Ox 98.0 F 73 18 115/77 99 06/06/18 12:07 06/06/18 12:07 06/06/18 12:07 06/06/18 12:07 06/06/18 12:07 - Medications Medications: Current Medications Anastrozole (Arimidex 1 Mg Tab) 1 mg PO DAILY [facility] Last Admin: 06/06/18 08:23 Dose: 1 mg Ascorbic Acid (Vitamin C 250 Mg Tab) 250 mg PO DAILY [facility] Last Admin: 06/06/18 08:22 Dose: 250 mg Calcium Acetate (Phoslo) 667 mg PO DAILY [facility] Last Admin: 06/06/18 08:26 Dose: Not Given Carvedilol (Coreg) 6.25 mg PO Q12 [facility] Last Admin: 06/06/18 08:20 Dose: 6.25 mg Colchicine (Colocrys) 0.6 mg PO DAILY [facility] Last Admin: 06/06/18 08:20 Dose: 0.6 mg Diltiazem HCl (Cardizem) 120 mg PO DAILY [facility] Last Admin: 06/06/18 08:24 Dose: 120 mg Ergocalciferol (Drisdol 50,000 Intl Units Cap) 1 cap PO QWK [facility] Escitalopram Oxalate (Lexapro) 10 mg PO DAILY [facility] Last Admin: 06/06/18 08:31 Dose: 10 mg Ferrous Sulfate (Feosol) 325 mg PO TID [facility] Last Admin: 06/06/18 08:20 Dose: 325 mg Furosemide (Lasix) 40 mg IV Q12 [facility] Last Admin: 06/06/18 11:07 Dose: Not Given Home Med (Febuxostat [Uloric]) 40 mg PO DAILY [facility] Insulin Detemir (Levemir) 10 units SC HS [facility] Last Admin: 06/05/18 22:07 Dose: Not Given Insulin Human Lispro (Humalog) 10 units SC TID [facility] Last Admin: 06/06/18 09:00 Dose: 10 units Insulin Human Lispro (Humalog) 0 units SC ACHS [facility]; Protocol Last Admin: 06/06/18 11:05 Dose: 6 units Lactulose (Enulose) 20 gm PO TID [facility] Last Admin: 06/06/18 08:24 Dose: Not Given Levothyroxine Sodium (Synthroid) 25 mcg PO DAILY@0630 [facility] Last Admin: 06/06/18 06:25 Dose: 25 mcg Magnesium Oxide (Mag-Ox) 400 mg PO BID [facility] Last Admin: 06/06/18 08:25 Dose: 400 mg Montelukast Sodium (Singulair) 10 mg PO HS [facility] Last Admin: 06/05/18 21:20 Dose: 10 mg [id number]-[id number] Ethyl Esters (Lovaza) 1 gm PO DAILY [facility] Last Admin: 06/06/18 08:19 Dose: 1 gm Pantoprazole Sodium (Protonix Ec Tab) 40 mg PO DAILY [facility] Last Admin: 06/06/18 08:27 Dose: 40 mg Rifaximin (Xifaxan) 550 mg PO BID [facility]; Protocol Last Admin: 06/06/18 08:19 Dose: 550 mg - Labs Labs: 06/05/18 00:20 06/06/18 04:19 PT 13.5 Seconds (9.8-13.1) H 06/05/18 00:20 INR 1.2 06/05/18 00:20 APTT 26.2 Seconds (25.6-37.1) 06/05/18 00:20 - Constitutional Appears: No Acute Distress - Head Exam Head Exam: NORMAL INSPECTION - Eye Exam Eye Exam: EOMI - Respiratory Exam Respiratory Exam: Decreased Breath Sounds, Rhonchi (b/l) - Cardiovascular Exam Cardiovascular Exam: REGULAR RHYTHM, +S1, +S2 - GI/Abdominal Exam GI & Abdominal Exam: Soft. absent: Distended, Tenderness - Extremities Exam Extremities Exam: absent: Calf Tenderness, Pedal Edema - Neurological Exam Neurological Exam: Alert, Awake, Oriented x3 - Skin Skin Exam: Dry, Warm Assessment and Plan - Assessment and Plan (Free Text) Assessment: 82 y/o female with PMHX of CHF w/ Pacemaker, COPD, Afibb, DM, HTN, Liver Cirrhosis admitted due to worsening sob likely secondary to CFH exacerbation. Plan: - labs reviewed, elevated PBNP - Echo: severe TR, LA dilated, LVEF 55-60% - C/W IV Lasix, scheduled duonebs - continue on home medications - Pulmonology consulted, input appreciated - Cardio consulted, input appreciated - f/u labs in am - rest of plan as ordered Discussed case with Dr. Wayne
[2018-06-06] MEDS: Insulin Detemir 100 Units/ml Inj SC SCH (21:35)
--- NOTE | 2018-06-06 22:54 | CP.PCM.CON ---
History of Present Illness - History of Present Illness History of Present Illness: Patient seen and examined. Full consult to follow. Cont treatment plan. Past Patient History - Tetanus Immunizations Tetanus Immunization: Unknown - Past Medical History & Family History Past Medical History?: Yes - Past Social History Smoking Status: Never Smoked - CARDIAC Hx Cardiac Disorders: Yes - PULMONARY Hx Respiratory Disorders: Yes - NEUROLOGICAL Hx Neurological Disorder: No - HEENT Hx HEENT Problems: No - RENAL Hx Chronic Kidney Disease: Yes - ENDOCRINE/METABOLIC Hx Endocrine Disorders: No - HEMATOLOGICAL/ONCOLOGICAL Hx Blood Disorders: Yes Hx AIDS: No Hx Human Immunodeficiency Virus (HIV): No - INTEGUMENTARY Hx Dermatological Problems: No - MUSCULOSKELETAL/RHEUMATOLOGICAL Hx Musculoskeletal Disorders: No Hx Falls: Yes - GASTROINTESTINAL Hx Gastrointestinal Disorders: Yes Hx Liver Failure: Yes - GENITOURINARY/GYNECOLOGICAL Hx Genitourinary Disorders: No - PSYCHIATRIC Hx Psychophysiologic Disorder: Yes Hx Substance Use: No - SURGICAL HISTORY Hx Surgeries: Yes Hx Cataract Extraction: Yes (BILAT.) Hx Cardiac Catheterization: Yes Other/Comment: HX: CYSTO WITH STENT PLACED. HX: RECONSTRUCTION OF VAGINA. HX: CYSTOSCOPY RIGHT URETERAL STENT EXCHANGE(01/29/18) - ANESTHESIA Hx Anesthesia: Yes Hx Anesthesia Reactions: No Hx Malignant Hyperthermia: No Meds Allergies/Adverse Reactions: Allergies Allergy/AdvReac Type Severity Reaction Status Date / Time metoclopramide [From Reglan] Allergy ANAPHYLAXIS Verified 04/24/18 23:06 - Medications Medications: Current Medications Anastrozole (Arimidex 1 Mg Tab) 1 mg PO DAILY [facility] Last Admin: 06/06/18 08:23 Dose: 1 mg Ascorbic Acid (Vitamin C 250 Mg Tab) 250 mg PO DAILY [facility] Last Admin: 06/06/18 08:22 Dose: 250 mg Calcium Acetate (Phoslo) 667 mg PO DAILY [facility] Last Admin: 06/06/18 08:26 Dose: Not Given Carvedilol (Coreg) 6.25 mg PO Q12 [facility] Last Admin: 06/06/18 21:23 Dose: 6.25 mg Colchicine (Colocrys) 0.6 mg PO DAILY [facility] Last Admin: 06/06/18 08:20 Dose: 0.6 mg Diltiazem HCl (Cardizem) 120 mg PO DAILY [facility] Last Admin: 06/06/18 08:24 Dose: 120 mg Ergocalciferol (Drisdol 50,000 Intl Units Cap) 1 cap PO QWK [facility] Escitalopram Oxalate (Lexapro) 10 mg PO DAILY [facility] Last Admin: 06/06/18 08:31 Dose: 10 mg Ferrous Sulfate (Feosol) 325 mg PO TID [facility] Last Admin: 06/06/18 16:46 Dose: 325 mg Furosemide (Lasix) 40 mg IV Q12 [facility] Last Admin: 06/06/18 21:26 Dose: 40 mg Home Med (Febuxostat [Uloric]) 40 mg PO DAILY [facility] Insulin Detemir (Levemir) 10 units SC HS [facility] Last Admin: 06/06/18 21:35 Dose: 10 units Insulin Human Lispro (Humalog) 10 units SC TID [facility] Last Admin: 06/06/18 16:47 Dose: 10 units Insulin Human Lispro (Humalog) 0 units SC ACHS [facility]; Protocol Last Admin: 06/06/18 21:45 Dose: Not Given Lactulose (Enulose) 20 gm PO TID [facility] Last Admin: 06/06/18 16:46 Dose: Not Given Levothyroxine Sodium (Synthroid) 25 mcg PO DAILY@0630 [facility] Last Admin: 06/06/18 06:25 Dose: 25 mcg Magnesium Oxide (Mag-Ox) 400 mg PO BID [facility] Last Admin: 06/06/18 16:48 Dose: 400 mg Montelukast Sodium (Singulair) 10 mg PO [facility] Last Admin: 06/06/18 21:23 Dose: 10 mg Goljv-9-[id number] Ethyl Esters (Lovaza) 1 gm PO DAILY [facility] Last Admin: 06/06/18 08:19 Dose: 1 gm Pantoprazole Sodium (Protonix Ec Tab) 40 mg PO DAILY [facility] Last Admin: 06/06/18 08:27 Dose: 40 mg Rifaximin (Xifaxan) 550 mg PO BID [facility]; Protocol Last Admin: 06/06/18 08:19 Dose: 550 mg Results - Vital Signs Recent Vital Signs: Last Vital Signs Temp 97.9 F 06/06/18 20:01 Pulse 75 06/06/18 21:23 Resp 20 06/06/18 20:01 BP 130/70 06/06/18 21:26 Pulse Ox 99 06/06/18 20:01 - Labs Result Diagrams: 06/05/18 00:20 06/06/18 04:19 Labs: Laboratory Results - last 24 hr 06/05/18 06/06/18 06/06/18 22:04 04:19 05:05 Sodium 137 Potassium 3.9 Chloride 98 Carbon Dioxide 32 H Anion Gap 11 BUN 21 H Creatinine 0.8 Est GFR ( Amer) > 60 Est GFR (Non-Af Amer) > 60 POC Glucose (mg/dL) 117 H 81 Random Glucose 84 Calcium 9.2 Total Bilirubin 0.8 AST 46 H D ALT 49 Alkaline Phosphatase 87 NT-Pro-B Natriuret Pep 2930 H Total Protein 6.8 Albumin 3.1 L Globulin 3.7 Albumin/Globulin Ratio 0.9 L 06/06/18 06/06/18 06/06/18 11:01 15:47 20:57 Sodium Potassium Chloride Carbon Dioxide Anion Gap BUN Creatinine Est GFR ( Amer) Est GFR (Non-Af Amer) POC Glucose (mg/dL) 314 H 227 H 125 H Random Glucose Calcium Total Bilirubin AST ALT Alkaline Phosphatase NT-Pro-B Natriuret Pep Total Protein Albumin Globulin Albumin/Globulin Ratio
[2018-06-07] MEDS: Levothyroxine 25 MCG TAB PO SCH (05:47)
[2018-06-07 06:06] LABS: B-TYPE NATRIURETIC PEPTIDE 1760 pg/ml (0-900)
[2018-06-07 06:08] LABS: BLOOD UREA NITROGEN 29 mg/dl (7-17); CALCIUM 8.9 mg/dL (8.4-10.2); GFR NON-AFRICAN AMERICAN > 60
[2018-06-07] MEDS: Insulin Lispro (humaLOG) 100 Units/ml Inj SC SCH ×6 (06:46→16:59)
[2018-06-07] MEDS: Omega-3-Acid Ethyl Esters 1 GM Cap PO SCH (08:37)
[2018-06-07] MEDS: Magnesium Oxide 400 mg Tab UD PO SCH ×2 (08:37→17:11)
[2018-06-07] MEDS: Pantoprazole 40 mg EC Tab PO SCH (08:37)
[2018-06-07] MEDS ORDERED: Influenza Vaccine 60 MCG/0.5 ML SYR (3 yr & up) IM ONE (10:00)
--- NOTE | 2018-06-07 11:34 | CP.PCM.CON ---
History of Present Illness - History of Present Illness History of Present Illness: I was asked to see patient by Dr Wayne. Patient was seen 06/07/18 925A Patient is a 82 year old female with HTN, chronic atrial fibrillation PPM who presents with dyspnea. Patient has known HTN atrial fibrillation and was previously admitted for right heart failure. The patient had progressive dyspnea on lower extremity edema. She was given diuresis. pro BNP was elevated. Patient states she feels better today. Review of Systems - Constitutional Constitutional: absent: As Per HPI, Anorexia, Chills, Daytime Sleepiness, Excessive Sweating, Fatigue, Fever, Frequent Falls, Headache, Increased Appetite, Lethargy, Malaise, Night Sweats, Snoring, Sleep Apnea, Weight Gain, Weight Loss, Weakness, Other - EENT Eyes: absent: As Per HPI, Blind Spots, Blurred Vision, Change in Vision, Decreased Night Vision, Diplopia, Discharge, Dry Eye, Exophthalmos, Floaters, Irritation, Itchy Eyes, Loss of Peripheral Vision, Pain, Photophobia, Requires Corrective Lenses, Sees Flashes, Spots in Vision, Tunnel Vision, Other Visual Disturbances, Loss of Vision, Other Ears: absent: As Per HPI, Decreased Hearing, Ear Discharge, Ear Pain, Tinnitus, Abnormal Hearing, Disequilibrium, Dizziness, Other Nose/Mouth/Throat: absent: As Per HPI, Epistaxis, Nasal Congestion, Nasal Discharge, Nasal Obstruction, Nasal Trauma, Nose Pain, Post Nasal Drip, Sinus Pain, Sinus Pressure, Bleeding Gums, Change in Voice, Dental Pain, Dry Mouth, Dysphagia, Halitosis, Hoarsness, Lip Swelling, Mouth Lesions, Mouth Pain, Odynophagia, Sore Throat, Throat Swelling, Tongue Swelling, Facial Pain, Neck Pain, Neck Mass, Other - Cardiovascular Cardiovascular: Dyspnea, Leg Edema - Respiratory Respiratory: Dyspnea - Gastrointestinal Gastrointestinal: absent: As Per HPI, Abdominal Pain, Belching, Bloating, Change in Bowel Habits, Change in Stool Character, Coffee Ground Emesis, Constipation, Cramping, Diarrhea, Dyspepsia, Dysphagia, Early Satiety, Excessive Flatus, Fecal Incontinence, Heartburn, Hematemesis, Hematochezia, Loose Stools, Melena, Nausea, Odynophagia, Temesmus, Vomiting, Other - Genitourinary Genitourinary: absent: As Per HPI, Change in Urinary Stream, Difficulty Urinating, Dysuria, Flank Pain, Hematuria, Pyuria, Nocturia, Urinary Incontinence, Urinary Frequency, Urinary Hesitance, Urinary Urgency, Voiding Freq/Small Amts, Freq UTI, Hx Renal/Bladder Calculi, Hx /Renal Surgery, Bladder Distension, Other - Musculoskeletal Musculoskeletal: absent: As Per HPI, Abnormal Gait, Arthralgias, Atrophy, Back Pain, Deformity, Joint Swelling, Limited Range of Motion, Loss of Height, Muscle Cramps, Muscle Weakness, Myalgias, Neck Pain, Numbness, Radiating Pain into Limb, Stiffness, Tingling, Other - Integumentary Integumentary: absent: As Per HPI, Acne, Alopecia, Bleeding Lesions, Change in Hair, Change in Nails, Change in Pigmentation, Changing Lesions, Dry Skin, Erythema, Furuncle, Hirsutism, Lesions, New Lesions, Non-Healing Lesions, Photosensitivity, Pruritus, Rash, Skin Pain, Skin Ulcer, Sores, Striae, Swelling, Unusual Bruising, Wounds, Jaundice, Other - Neurological Neurological: absent: As Per HPI, Abnormal Gait, Abnormal Hearing, Abnormal Movements, Abnormal Speech, Behavioral Changes, Burning Sensations, Confusion, Convulsions, Disequilibrium, Dizziness, Numbness, Focal Weakness, Frequent Falls , Headaches, Lack of Coordination, Loss of Vision, Memory Loss, Paresthesias, Radicular Pain, Restless Legs, Sensory Deficit, Syncope, Tingling, Tremor, Vertigo, Weakness, Other Visual Disturbances, Other - Psychiatric Psychiatric: absent: As Per HPI, Abnormal Sleep Pattern, Anhedonia, Anxiety, Auditory Hallucinations, Behavioral Changes, Change in Appetite, Change in Libido, Confusion, Depression, Difficulty Concentrating, Hallucinations, Homicidal Ideation, Hopelessness, Irritability, Memory Loss, Mood Swings, Panic Attacks, Paranoia, Suicidal Ideation, Visual Hallucinations, Tactile Hallucinations, Other - Endocrine Endocrine: absent: As Per HPI, Change in Body Appearance, Change in Libido, Cold Intolorance, Deepening of Voice, Excessive Sweating, Fatigue, Flushing, Heat Intolorance, Increase in Ring/Shoe/Hat Size, Palpitations, Polydipsia, Polyphagia, Polyuria, Other - Hematologic/Lymphatic Hematologic: absent: As Per HPI, Easy Bleeding, Easy Bruising, Lymphadenopathy, Other Past Patient History - Tetanus Immunizations Tetanus Immunization: Unknown - Past Medical History & Family History Past Medical History?: Yes - Past Social History Smoking Status: Never Smoked - CARDIAC Hx Cardiac Disorders: Yes - PULMONARY Hx Respiratory Disorders: Yes - NEUROLOGICAL Hx Neurological Disorder: No - HEENT Hx HEENT Problems: No - RENAL Hx Chronic Kidney Disease: Yes - ENDOCRINE/METABOLIC Hx Endocrine Disorders: No - HEMATOLOGICAL/ONCOLOGICAL Hx Blood Disorders: Yes Hx AIDS: No Hx Human Immunodeficiency Virus (HIV): No - INTEGUMENTARY Hx Dermatological Problems: No - MUSCULOSKELETAL/RHEUMATOLOGICAL Hx Musculoskeletal Disorders: No Hx Falls: Yes - GASTROINTESTINAL Hx Gastrointestinal Disorders: Yes Hx Liver Failure: Yes - GENITOURINARY/GYNECOLOGICAL Hx Genitourinary Disorders: No - PSYCHIATRIC Hx Psychophysiologic Disorder: Yes Hx Substance Use: No - SURGICAL HISTORY Hx Surgeries: Yes Hx Cataract Extraction: Yes (BILAT.) Hx Cardiac Catheterization: Yes Other/Comment: HX: CYSTO WITH STENT PLACED. HX: RECONSTRUCTION OF VAGINA. HX: CYSTOSCOPY RIGHT URETERAL STENT EXCHANGE(01/29/18) - ANESTHESIA Hx Anesthesia: Yes Hx Anesthesia Reactions: No Hx Malignant Hyperthermia: No Meds Allergies/Adverse Reactions: Allergies Allergy/AdvReac Type Severity Reaction Status Date / Time metoclopramide [From Reglan] Allergy ANAPHYLAXIS Verified 04/24/18 23:06 - Medications Medications: Current Medications Anastrozole (Arimidex 1 Mg Tab) 1 mg PO DAILY [facility] Last Admin: 06/07/18 08:40 Dose: 1 mg Ascorbic Acid (Vitamin C 250 Mg Tab) 250 mg PO DAILY [facility] Last Admin: 06/07/18 08:37 Dose: 250 mg Calcium Acetate (Phoslo) 667 mg PO DAILY [facility] Last Admin: 06/07/18 09:21 Dose: 667 mg Carvedilol (Coreg) 6.25 mg PO Q12 [facility] Last Admin: 06/07/18 08:38 Dose: 6.25 mg Colchicine (Colocrys) 0.6 mg PO DAILY [facility] Last Admin: 06/07/18 08:37 Dose: 0.6 mg Diltiazem HCl (Cardizem) 120 mg PO DAILY [facility] Last Admin: 06/07/18 08:38 Dose: 120 mg Ergocalciferol (Drisdol 50,000 Intl Units Cap) 1 cap PO QWK [facility] Escitalopram Oxalate (Lexapro) 10 mg PO DAILY [facility] Last Admin: 06/07/18 09:20 Dose: 10 mg Ferrous Sulfate (Feosol) 325 mg PO TID [facility] Last Admin: 06/07/18 08:37 Dose: 325 mg Furosemide (Lasix) 40 mg IV Q12 [facility] Last Admin: 06/07/18 08:40 Dose: 40 mg Home Med (Febuxostat [Uloric]) 40 mg PO DAILY [facility] Insulin Detemir (Levemir) 10 units SC HS [facility] Last Admin: 06/06/18 21:35 Dose: 10 units Insulin Human Lispro (Humalog) 10 units SC TID [facility] Last Admin: 06/07/18 08:39 Dose: 10 units Insulin Human Lispro (Humalog) 0 units SC ACHS [facility]; Protocol Last Admin: 06/07/18 06:46 Dose: 3 units Lactulose (Enulose) 20 gm PO TID [facility] Last Admin: 06/07/18 08:38 Dose: 20 gm Levothyroxine Sodium (Synthroid) 25 mcg PO DAILY@0630 [facility] Last Admin: 06/07/18 05:47 Dose: 25 mcg Magnesium Oxide (Mag-Ox) 400 mg PO BID [facility] Last Admin: 06/07/18 08:37 Dose: 400 mg Montelukast Sodium (Singulair) [address] [facility] Last Admin: 06/06/18 21:23 Dose: 10 mg Xzftd-5-[id number] Ethyl Esters (Lovaza) 1 gm PO DAILY [facility] Last Admin: 06/07/18 08:37 Dose: 1 gm Pantoprazole Sodium (Protonix Ec Tab) 40 mg PO DAILY [facility] Last Admin: 06/07/18 08:37 Dose: 40 mg Rifaximin (Xifaxan) 550 mg PO BID [facility]; Protocol Last Admin: 06/07/18 08:37 Dose: 550 mg Physical Exam - Constitutional Appears: Non-toxic, Chronically Ill - Head Exam Head Exam: NORMAL INSPECTION - Eye Exam Eye Exam: Normal appearance - ENT Exam ENT Exam: Mucous Membranes Moist - Neck Exam Neck exam: Positive for: Full Rom, Normal Inspection. Negative for: L ymphadenopathy, Tenderness, Thyromegaly - Respiratory Exam Respiratory Exam: Decreased Breath Sounds. absent: Respiratory Distress - Cardiovascular Exam Cardiovascular Exam: Irregular Rhythm. absent: Systolic Murmur - GI/Abdominal Exam GI & Abdominal Exam: Normal Bowel Sounds. absent: Distended, Guarding, Organomegaly, Pulsatile Mass, Rebound, Rigid - Rectal Exam Rectal Exam: Deferred - Extremities Exam Extremities exam: Positive for: pedal edema - Back Exam Back exam: NORMAL INSPECTION - Neurological Exam Neurological exam: Alert, Oriented x3 Results - Vital Signs Recent Vital Signs: Last Vital Signs Temp 97.9 F 06/07/18 08:27 Pulse 86 06/07/18 08:38 Resp 18 06/07/18 08:27 BP 133/78 06/07/18 08:40 Pulse Ox 99 06/07/18 08:27 - Labs Result Diagrams: 06/05/18 00:20 06/07/18 05:25 Labs: Laboratory Results - last 24 hr 06/06/18 06/06/18 06/06/18 11:01 15:47 20:57 Sodium Potassium Chloride Carbon Dioxide Anion Gap BUN Creatinine Est GFR ( Amer) Est GFR (Non-Af Amer) POC Glucose (mg/dL) 314 H 227 H 125 H Random Glucose Calcium NT-Pro-B Natriuret Pep 06/07/18 06/07/18 06/07/18 05:00 05:25 10:54 Sodium 138 Potassium 3.6 Chloride 96 L Carbon Dioxide 32 H Anion Gap 14 BUN 29 H Creatinine 0.8 Est GFR ( Amer) > 60 Est GFR (Non-Af Amer) > 60 POC Glucose (mg/dL) 213 H 236 H Random Glucose 219 H Calcium 8.9 NT-Pro-B Natriuret Pep 1760 H - EKG Data EKG Interpreted by: Myself Assessment & Plan (1) Acute dyspnea Assessment [facility] heart failure form pulmonary HTN. continued diuresis. rate controlled.echocardiogrm reviewed Status: Acute (2) HTN (hypertension) Assessment and Plan: blood pressure control Status: Chronic (3) Pulmonary hypertension Assessment and Plan: chronic. diuresis Status: Chronic Priority: Medium (4) Atrial fibrillation Assessment and Plan: rate controlled. not on anticoagulation due to bleeding. Status: Acute
[2018-06-07 12:07] VITALS: O2SAT 99
--- NOTE | 2018-06-07 14:29 | CP.PCM.DIS ---
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 (2) Mitral valve regurgitation Status: Chronic (3) COPD (chronic obstructive pulmonary disease) Status: Chronic Priority: Medium (4) Pulmonary hypertension Status: Chronic Priority: Medium Hospital Course - Lab Results Lab Results: Micro Results 06/05/18 00:50 Blood-Venous Blood Culture - Preliminary NO GROWTH AFTER 48 HOURS 06/05/18 00:20 Blood-Venous Blood Culture - Preliminary NO GROWTH AFTER 48 HOURS Most Recent Lab Values WBC 10.3 K/uL (4.8-10.8) 06/05/18 00:20 RBC 4.09 Mil/uL (3.80-5.20) 06/05/18 00:20 Hgb 13.5 g/dL (12.0-16.0) 06/05/18 00:20 Hct 40.2 % (34.0-47.0) 06/05/18 00:20 MCV 98.5 fl (81.0-99.0) 06/05/18 00:20 MCH 33.0 pg (27.0-31.0) H 06/05/18 00:20 MCHC 33.5 g/dL (33.0-37.0) 06/05/18 00:20 RDW 14.0 % (11.5-14.5) 06/05/18 00:20 Plt Count 97 K/uL (130-400) L 06/05/18 00:20 MPV 11.1 fl (7.2-11.7) 06/05/18 00:20 Neut % (Auto) 81.5 % (50.0-75.0) H 06/05/18 00:20 Lymph % (Auto) 9.5 % (20.0-40.0) L 06/05/18 00:20 Story % (Auto) 8.0 % (0.0-10.0) 06/05/18 00:20 Eos % (Auto) 0.4 % (0.0-4.0) 06/05/18 00:20 Baso % (Auto) 0.6 % (0.0-2.0) 06/05/18 00:20 Neut # (Auto) 8.4 K/uL (1.8-7.0) H 06/05/18 00:20 Lymph # (Auto) 1.0 K/uL (1.0-4.3) 06/05/18 00:20 Story # (Auto) 0.8 K/uL (0.0-0.8) 06/05/18 00:20 Eos # (Auto) 0.0 K/uL (0.0-0.7) 06/05/18 00:20 Baso # (Auto) 0.1 K/uL (0.0-0.2) 06/05/18 00:20 Neutrophils % (Manual) 86 % (42-75) H 06/05/18 00:20 Band Neutrophils % 1 % (0-2) 06/05/18 00:20 Lymphocytes % (Manual) 6 % (20-50) L 06/05/18 00:20 Monocytes % (Manual) 6 % (0-10) 06/05/18 00:20 Eosinophils % (Manual) 1 % (0-7) 06/05/18 00:20 Platelet Estimate Markedly decreased (NORMAL) L 06/05/18 00:20 Hypochromasia (manual) Slight 06/05/18 00:20 Tear Drop Cells Slight 06/05/18 00:20 Ovalocytes Slight 06/05/18 00:20 PT 13.5 Seconds (9.8-13.1) H 06/05/18 00:20 INR 1.2 06/05/18 00:20 APTT 26.2 Seconds (25.6-37.1) 06/05/18 00:20 pCO2 48 mm/Hg (35-45) H 06/05/18 11:07 pO2 158 mm/Hg (80-100) H 06/05/18 11:07 HCO3 31.8 mmol/L (21-28) H 06/05/18 11:07 ABG pH 7.46 (7.35-7.45) H 06/05/18 11:07 ABG Total CO2 35.6 mmol/L (22-28) H 06/05/18 11:07 ABG O2 Saturation 100.2 % (95-98) H 06/05/18 11:07 ABG O2 Content 18.0 ML/dL (15-23) 06/05/18 11:07 ABG Base Excess 8.9 mmol/L (-2.0-3.0) H 06/05/18 11:07 ABG Hemoglobin 13.1 g/dL (11.7-17.4) 06/05/18 11:07 ABG Carboxyhemoglobin 2.7 % (0.5-1.5) H 06/05/18 11:07 POC ABG HHb (Measured) -0.2 % (0.0-5.0) L 06/05/18 11:07 ABG Methemoglobin 1.5 % (0.0-3.0) 06/05/18 11:07 ABG O2 Capacity 18.0 mL/dL (16-24) 06/05/18 11:07 Andres Test Yes 06/05/18 11:07 A-a O2 Difference 139.0 mm/Hg 06/05/18 11:07 Hgb O2 Saturation 96.0 % (95.0-98.0) 06/05/18 11:07 Mechanical Rate 12 06/05/18 11:07 FiO2 50.0 % 06/05/18 11:07 Inspiratory BiPAP 10 06/05/18 11:07 Expiratory BiPAP 5 06/05/18 11:07 Sodium 138 mmol/l (132-148) 06/07/18 05:25 Potassium 3.6 MMOL/L (3.6-5.0) 06/07/18 05:25 Chloride 96 mmol/L (98-107) L 06/07/18 05:25 Carbon Dioxide 32 mmol/L (22-30) H 06/07/18 05:25 Anion Gap 14 (10-20) 06/07/18 05:25 BUN 29 mg/dl (7-17) H 06/07/18 05:25 Creatinine 0.8 mg/dl (0.7-1.2) 06/07/18 05:25 Est GFR ( Amer) > 60 06/07/18 05:25 Est GFR (Non-Af Amer) > 60 06/07/18 05:25 POC Glucose (mg/dL) 236 mg/dL (65-110) H 06/07/18 10:54 Random Glucose 219 mg/dL (65-105) H 06/07/18 05:25 Calcium 8.9 mg/dL (8.4-10.2) 06/07/18 05:25 Total Bilirubin 0.8 mg/dl (0.2-1.3) 06/06/18 04:19 AST 46 U/L (14-36) H D 06/06/18 04:19 ALT 49 U/L (9-52) 06/06/18 04:19 Alkaline Phosphatase 87 U/L (38-126) 06/06/18 04:19 Troponin I 0.0230 ng/mL (0.00-0.120) 06/05/18 00:20 NT-Pro-B Natriuret Pep 1760 pg/ml (0-900) H 06/07/18 05:25 Total Protein 6.8 G/DL (6.3-8.2) 06/06/18 04:19 Albumin 3.1 g/dL (3.5-5.0) L 06/06/18 04:19 Globulin 3.7 gm/dL (2.2-3.9) 06/06/18 04:19 Albumin/Globulin Ratio 0.9 (1.0-2.1) L 06/06/18 04:19 - Hospital Course Hospital Course: 82 y/o female with PMHX of CHF w/ Pacemaker, COPD, Afibb, DM, HTN, Liver Cirrhosis admitted due to dyspnea. Pt was placed on BiPAP at first and then progressed to room air. Bloodwork was remarkable for elevated Pro-BNP and negative troponins. Cardiology and Pulmonology were consulted. This dyspnec episode is most probably due to acute exacerbation of her CHF. Echocardiogram s howed moderate mitral regurgitation, moderate/severe tricuspic regurgitation and a EF ~55-60%. Pt improved after diuresis with Furosemide. Today, pt is afebrile, stable, tolerating PO, talktative on examination. 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 - Date & Time of H&P Date of H&P: 06/05/18 Time of H&P: 10:31 Discharge Exam - Head Exam Head Exam: NORMAL INSPECTION - Eye Exam Eye Exam: EOMI, Normal appearance - ENT Exam ENT Exam: Mucous Membranes Dry - Neck Exam Neck exam: Full Rom - Respiratory Exam Respiratory Exam: NORMAL BREATHING PATTERN. absent: Rhonchi, Wheezes, Respiratory Distress - Cardiovascular Exam Cardiovascular Exam: +S1, +S2 - GI/Abdominal Exam GI & Abdominal Exam: Soft. absent: Distended, Guarding, Tenderness - Back Exam Back exam: absent: CVA tenderness (L), CVA tenderness (R) - Neurological Exam Neurological exam: Alert, Oriented x3 - Psychiatric Exam Psychiatric exam: Normal Affect Discharge Plan - Follow Up Plan Condition: FAIR Disposition: HOME/ ROUTINE Instructions: Atrial Fibrillation (DC), Heart Failure, Adult (DC) Additional Instructions: follow up visit with monday 2:45pm 06/15/18 Referrals: Yoav Colindres MD [Staff Provider] - Tony Rose MD [Staff Provider] -
[2018-06-07 15:49] VITALS: BP 119/66; PULSE 58; RESP 17; TEMP 98.1
--- NOTE | 2018-06-09 21:54 | PQF ---
PROVIDER RESPONSE TEXT: Provider was unable to determine a response for this query. REVIEWER QUERY TEXT: Respiratory Failure Acuity and Type Respiratory Failure is documented in the Medical Record. If you agree please specify the type and acu ity (includes suspected or probable) Such as: -- Acute respiratory failure - With hypoxia - With hypercapnia -- Chronic respiratory failure - With hypoxia - With hypercapnia -- Acute on chronic respiratory failure - With hypoxia - With hypercapnia -- Other, please specify The patient's Clinical Indicators include: Respiratory Failure documented in ED Physician Documentation Report. Query created by: Niesha Chowdary on 06/08/2018 8:58 AM Electronically signed by: Rojelio Wayne 06/09/2018 9:50 PM
== END 2018-06-07 18:00 | disposition home health service (06) | DRG 291 ==
LOC: H.ER 23:52 → H.ERHOLD 06-05 00:46 → H.TEL 06-05 09:53
PROVIDERS: ADMIT Family Medicine; ATTEND Family Medicine
PROC: 5A09457 Assistance with Respiratory Ventilation, 24-96 Consecutive Hours, Continuous Positive Airway Pressure (ICD-10-PCS; principal; 2018-06-05)
DX: I13.0 Hypertensive heart and chronic kidney disease with heart failure and stage 1 through stage 4 chronic kidney disease, or unspecified chronic kidney disease (principal); I50.33 Acute on chronic diastolic (congestive) heart failure; J44.9 Chronic obstructive pulmonary disease, unspecified; E03.9 Hypothyroidism, unspecified; E11.22 Type 2 diabetes mellitus with diabetic chronic kidney disease; E78.00 Pure hypercholesterolemia, unspecified; I48.2 Chronic atrial fibrillation; K74.60 Unspecified cirrhosis of liver; N18.9 Chronic kidney disease, unspecified; I27.29 Other secondary pulmonary hypertension; Z95.0 Presence of cardiac pacemaker; F32.9 Major depressive disorder, single episode, unspecified; I34.0 Nonrheumatic mitral (valve) insufficiency

== ENCOUNTER 2018-08-03 23:16 | Inpatient (IN) | payer MEDICARE, OTHER ==
[2018-08-03 23:16] VITALS: BMI 26.6
[2018-08-04] MEDS ORDERED: Albuterol-Ipratrop 3 mg / 0.5 (3 ml) UD INH STA (00:24)
--- NOTE | 2018-08-04 00:34 | ED PDOC ---
HPI: SOB/CHF/COPD Time Seen by Provider: 08/04/18 00:11 Chief Complaint (Nursing): Shortness Of Breath Chief Complaint (Provider): Shortness Of Breath History Per: Patient History/Exam Limitations: no limitations Onset/Duration Of Symptoms: Days (x2) Current Symptoms Are (Timing): Still Present Associated Symptoms: Productive Cough (with yellowish sputum), Other (Decrease in appetite) Additional Complaint(s): 82 y/o female with history of hypertension, diabetes and asthma presents to ER for evaluation of shortness of breath associated with cough and decreased appetite onset 2 days. Patient reports cough is productive with yellow-cece sput um. She states symptoms feel like asthma but also feel like she might have pneumonia. She reports last hospitalization was 2 months ago. Patient is unsure if she is febrile and denies any nausea, vomiting or other complaints. PMD: non provided Past Medical History Reviewed: Historical Data, Nursing Documentation, Vital Signs Vital Signs: Last Vital Signs Temp 99.6 F 08/03/18 23:20 Pulse 81 08/03/18 23:20 Resp 24 08/03/18 23:20 BP 152/77 H 08/03/18 23:20 Pulse Ox 92 L 08/03/18 23:20 - Medical History PMH: Anemia, Arthritis, Asthma, Atrial Fibrillation, Cardia Arrhythmia (A-FIB), CHF, COPD, Depression, Diabetes, HTN, Hypercholesterolemia, Hypothyroidism, Kidney Stones, Pneumonia, Chronic Kidney Disease Denies: HIV - Surgical History Surgical History: Endoscopy, Pacemaker - Family History Family History: States: Unknown Family Hx - Home Medications Home Medications: Ambulatory Orders Medication Instructions Recorded Escitalopram [Lexapro] 2 tab PO DAILY 09/13/14 Magnesium Oxide 400 mg PO BID 09/13/14 Montelukast [Singulair] 10 mg PO HS 09/13/14 rifAXIMin [Xifaxan] 550 mg PO BID 09/13/14 Albuterol 0.083% [Albuterol 0.083% 3 ml NEB PRN PRN 12/13/17 Inhal Josefina (2.5 mg/3 ml) UD] Anastrozole 1 mg PO DAILY 12/13/17 Ascorbic Acid 250 mg PO DAILY 12/13/17 Calcium Acetate 667 mg PO DAILY 12/13/17 Carvedilol [Coreg] 6.25 mg PO Q12 12/13/17 Colchicine [Colcrys] 0.6 mg PO DAILY 12/13/17 Ergocalciferol (Vitamin D2) 50,000 unit PO QWK 12/13/17 [Vitamin D2] Esomeprazole Magnesium [Nexium] 40 mg PO DAILY 12/13/17 Febuxostat [Uloric] 40 mg PO DAILY 12/13/17 Ferrous Sulfate [Feosol] 325 mg PO TID 12/13/17 Furosemide [Lasix] 40 mg PO BID 12/13/17 Insulin Glargine,Hum.rec.anlog 10 unit SQ HS 12/13/17 [Lantus Solostar] Insulin Lispro [Humalog Kwikpen 10 unit SQ TID PRN 12/13/17 U-100] Lactulose 30 ml PO TID 12/13/17 Levothyroxine Sodium 25 mcg PO DAILY 12/13/17 Shattuck-3 Fatty Acids [Shattuck-3] 1,000 mg PO DAILY 12/13/17 Potassium Chloride 20 meq PO BID 12/13/17 diltiaZEM [Cardizem] 120 mg PO DAILY 12/13/17 Tiotropium [place] Inhaler 1 inhaler INH DAILY 08/03/18 [Spiriva Inhalation Handihaler Device] - Allergies Allergies/Adverse Reactions: Allergies Allergy/AdvReac Type Severity Reaction Status Date / Time metoclopramide [From Reglan] Allergy ANAPHYLAXIS Verified 08/03/18 23:19 Review of Systems ROS Statement: Except As Marked, All Systems Reviewed And Found Negative Constitutional: Positive for: Other (Decreased appetite). Negative for: Fever (unsure) Respiratory: Positive for: Cough, Shortness of Breath, Sputum (yellow-cece) Gastrointestinal: Negative for: Nausea, Vomiting Physical Exam - Reviewed Nursing Documentation Reviewed: Yes Vital Signs Reviewed: Yes - Physical Exam Appears: Positive for: Uncomfortable (at rest). Negative for: No Acute Distress Head Exam: Positive for: ATRAUMATIC, NORMOCEPHALIC Respiratory: Positive for: Crackles (bilaterally), Rhonchi (bilaterally), Wheezing (bilaterally), Respiratory Distress (while coughing) Gastrointestinal/Abdominal: Positive for: Normal Exam, Soft. Negative for: Tenderness Back: Positive for: Normal Inspection. Negative for: L CVA Tenderness, R CVA Tenderness Extremity: Positive for: Normal ROM. Negative for: Pedal Edema, Swelling Neurologic/Psych: Positive for: Alert, Oriented (x3) - Laboratory Results Result Diagrams: 08/04/18 02:05 08/04/18 02:05 - ECG O2 Sat by Pulse Oximetry: 92 (RA) Pulse Ox Interpretation: Abnormal Medical Decision Making Medical Decision Making: Time: 3 A/P: Workup for shortness of breath --Unwell appearing --Asthma vs. pneumonia --Labs including VBG shock panel, cardiac enzyme --Duoneb and SOLU-Medrol for wheezing --Blood culture --Possible admission --Reassess patient 0638 --CT shows CHF bilateral consolidation --Last hospitalization was 2 months ago, therefore, HCAP --Patient to be started on antibiotics and admitted to medical services [address] Jenkins to telemetry. ----- Scribe Attestation: Documented by Loulou Linares, acting as a scribe for Christiane Osman MD. Provider Scribe Attestation: All medical record entries made by the Scribe were at my direction and p ersonally dictated by me. I have reviewed the chart and agree that the record accurately reflects my personal performance of the history, physical exam, medical decision making, and the department course for this patient. I have also personally directed, reviewed, and agree with the discharge instructions and disposition. Disposition - Clinical Impression Clinical Impression: CHF (congestive heart failure), HCAP (healthcare-associated pneumonia) - Patient ED Disposition Is Patient to be Admitted: Yes - Disposition Disposition Time: 06:50 Condition: GUARDED Forms: [employer] (Mongolian)
[2018-08-04] MEDS ORDERED: Albuterol-Ipratrop 3 mg / 0.5 (3 ml) UD ONE (01:09)
[2018-08-04 02:17] LABS: VENOUS BLOOD GAS BASE EXCESS 10.3 mmol/L (0.0-2.0); VENOUS BLOOD GAS PCO2 57 mmHg (40-60); VENOUS BLOOD GAS PO2 42 mm/Hg (30-55); VENOUS BLOOD PH 7.42 (7.32-7.43)
[2018-08-04 02:29] LABS: BASO % 0.6 % (0.0-2.0); EOS # 0.2 K/uL (0.0-0.7); EOS % 2.2 % (0.0-4.0); HEMOGLOBIN 13.2 g/dL (12.0-16.0); LYMPH # 1.2 K/uL (1.0-4.3); MEAN CELL VOLUME 97.8 fl (81.0-99.0); MEAN CORPUSCULAR HEMOGLOBIN 32.9 pg (27.0-31.0); MEAN CORPUSCULAR HGB CONC 33.6 g/dL (33.0-37.0); MEAN PLATELET VOLUME 10.2 fl (7.2-11.7); MONO # 0.8 K/uL (0.0-0.8); NEUT # 5.5 K/uL (1.8-7.0); NEUT % 71.2 % (50.0-75.0); RBC 4.01 Mil/uL (3.80-5.20); RED CELL DISTRIBUTION WIDTH 13.6 % (11.5-14.5); WHITE BLOOD COUNT 7.7 K/uL (4.8-10.8)
[2018-08-04 02:30] LABS: ALB/GLOB RATIO 0.9 (1.0-2.1); ALBUMIN 3.6 g/dL (3.5-5.0); ALT/SGPT 45 U/L (9-52); AST/SGOT 49 U/L (14-36); BLOOD UREA NITROGEN 19 mg/dl (7-17); CALCIUM 9.8 mg/dL (8.4-10.2); GFR NON-AFRICAN AMERICAN 60
[2018-08-04 02:41] LABS: B-TYPE NATRIURETIC PEPTIDE 1910 pg/ml (0-900)
[2018-08-04] MEDS ORDERED: Insulin Regular 100 units/ml SC PRN (08:52)
[2018-08-04] MEDS ORDERED: Dextrose 50% SYRINGE Inj (50 ml) IV PRN (12:49)
[2018-08-04] MEDS ORDERED: Glucagon Recombinant 1 mg Inj IM PRN (12:49)
[2018-08-04] MEDS ORDERED: Ergocalciferol 50,000 Intl Units Cap PO SCH (13:45)
[2018-08-04] MEDS: Albuterol-Ipratrop 3 mg / 0.5 (3 ml) UD INH SCH ×2 (15:00→19:19)
--- NOTE | 2018-08-04 16:07 | RAD ---
Date of service: 08/04/2018 HISTORY: possible admission COMPARISON: Comparison chest 06/05/2018 FINDINGS: LUNGS: Mild diffuse pulmonary venous congestive changes with bilateral lower lobe alveolar-type infiltrates and bilateral effusions. Redemonstrated is localized chronic atelectasis/scarring right mid lung field. Mild atelectasis left mid lung field. PLEURA: As above. No pneumothorax apparent. CARDIOVASCULAR: Marked cardiomegaly. Aorta is markedly ectatic with moderate aortic atherosclerotic calcification present. In situ dual lead pacemaker/defibrillator. OSSEOUS STRUCTURES: No significant abnormalities. VISUALIZED UPPER ABDOMEN: Normal. OTHER FINDINGS: None. IMPRESSION: Mild diffuse pulmonary venous congestive changes with bilateral lower lobe alveolar-type infiltrates and bilateral effusions. Redemonstrated is localized chronic atelectasis/scarring right mid lung field. Mild atelectasis left mid lung field. Marked cardiomegaly.
[2018-08-04] MEDS: Insulin Lispro (humaLOG) 100 Units/ml Inj SC SCH ×2 (16:50→22:00)
--- NOTE | 2018-08-04 18:14 | CT ---
Date of service: 08/04/2018 PROCEDURE: CT Chest without contrast HISTORY: SOB COMPARISON: Comparison made with chest radiograph 08/04/2018 TECHNIQUE: Contiguous axial images were obtained through the chest without intravenous contrast enhancement. Sagittal and coronal reconstructions were performed. Radiation dose: Total exam DLP = 221.63 mGy-cm. This CT exam was performed using one or more of the following dose reduction techniques: Automated exposure control, adjustment of the mA and/or kV according to patient size, and/or use of iterative reconstruction technique. FINDINGS: LUNGS: Pulmonary venous congestive changes with moderately large right sided effusion and mild to moderate right basilar atelectasis. Small left effusion and mild left basilar atelectasis. There are areas of atelectasis also seen in the left upper lobe/lingular region and right upper lobe/middle lobe regions.. Probable underlying pulmonary venous congestive changes. MEDIASTINUM: Marked cardiomegaly. Suspect small pericardial effusion. The ascending thoracic aorta measures approximately 3.0 cm and descending thoracic aorta measures approximately 2.3 cm. There is aortic atherosclerotic calcification. Pulmonary trunk measures approximately 3.0 cm. Evaluation for adenopathy is limited however there are multiple small to medium-sized mediastinal lymph nodes the largest prevascular lymph node measuring approximately 17 mm with AP window lymph node measuring approximately 20 mm. Evaluation for hilar adenopathy is limited due to the lack of circulating intravenous contrast material. There is a moderately large right-sided effusion with right basilar atelectasis. Small left effusion and mild left basilar atelectasis. PLEURA: As above. No evidence of pneumothorax BONES: Multilevel degenerative spondylosis of the thoracic spine. No acute compression fractures no retropulsed fragments. UPPER ABDOMEN: Nodular hepatic surface contour consistent with cirrhosis. There also appears to be numerous varices in the left and mid upper abdomen. OTHER FINDINGS: None. IMPRESSION: Cardiomegaly with small pericardial effusion. Moderately large right-sided effusion and mild to moderate right basilar atelectasis. Small left-sided effusion and mild left basilar atelectasis. Areas of atelectatic and/or scarring changes seen in the upper lobes including the middle lobe and lingular regions. Probable underlying pulmonary venous congestive changes. Cirrhotic liver with upper abdominal varices.
[2018-08-04] MEDS: MethylPREDNISolone 40 mg Vial IVP SCH (18:46)
[2018-08-04] MEDS: Potassium Chloride 20 mEq ER Tab PO SCH (18:46)
[2018-08-04] MEDS: Tiotropium 18 mcg Cap For Inhalation INH SCH (18:47)
[2018-08-04] MEDS: Insulin Detemir 100 Units/ml Inj SC SCH (22:01)
[2018-08-05] MEDS: Albuterol-Ipratrop 3 mg / 0.5 (3 ml) UD INH SCH ×4 (01:09→19:51)
[2018-08-05] MEDS: Levothyroxine 25 MCG TAB PO SCH (05:45)
[2018-08-05] MEDS: Insulin Lispro (humaLOG) 100 Units/ml Inj SC SCH ×4 (06:35→22:00)
--- NOTE | 2018-08-05 07:43 | CARD ---
APPROVED REPORT Date of service: 08/03/2018 EKG Measurement Heart [id number] <Conclusion> Atrial fibrillation with occasional ventricular-paced complexes Nonspecific ST changes Abnormal ECG
[2018-08-05] MEDS: Tiotropium 18 mcg Cap For Inhalation INH SCH (09:03)
[2018-08-05] MEDS: Enoxaparin 30 mg Syringe SC SCH (09:04)
[2018-08-05] MEDS: MethylPREDNISolone 40 mg Vial IVP SCH ×2 (09:05→17:24)
[2018-08-05] MEDS: Potassium Chloride 20 mEq ER Tab PO SCH ×2 (09:05→17:23)
[2018-08-05] MEDS: diltiaZEM 120 mg/24 Hours CD Cap PO SCH (09:06)
--- NOTE | 2018-08-05 11:49 | CP.PCM.CON ---
History of Present Illness - History of Present Illness History of Present Illness: I was asked to evaluate patient by Dr Jenkins. Patient seen 08/05/18 [id number] Patient is a 82 year old female with chronic atrial fibrillation, PPM, HTN, mitral regurgitation who presents with dyspnea. Patient is a poor historian, but has noted dsypnea and productive cough. She has known atrial fibrillation but is not anticoagulated due to GI bleed. She denies chest pain. Review of Systems - Constitutional Constitutional: absent: As Per HPI, Anorexia, Chills, Daytime Sleepiness, Excessive Sweating, Fatigue, Fever, Frequent Falls, Headache, Increased Appetite, Lethargy, Malaise, Night Sweats, Snoring, Sleep Apnea, Weight Gain, Weight Loss, Weakness, Other - EENT Eyes: absent: As Per HPI, Blind Spots, Blurred Vision, Change in Vision, Decreased Night Vision, Diplopia, Discharge, Dry Eye, Exophthalmos, Floaters, Irritation, Itchy Eyes, Loss of Peripheral Vision, Pain, Photophobia, Requires Corrective Lenses, Sees Flashes, Spots in Vision, Tunnel Vision, Other Visual Disturbances, Loss of Vision, Other Ears: absent: As Per HPI, Decreased Hearing, Ear Discharge, Ear Pain, Tinnitus, Abnormal Hearing, Disequilibrium, Dizziness, Other Nose/Mouth/Throat: absent: As Per HPI, Epistaxis, Nasal Congestion, Nasal Discharge, Nasal Obstruction, Nasal Trauma, Nose Pain, Post Nasal Drip, Sinus Pain, Sinus Pressure, Bleeding Gums, Change in Voice, Dental Pain, Dry Mouth, Dysphagia, Halitosis, Hoarsness, Lip Swelling, Mouth Lesions, Mouth Pain, Odynophagia, Sore Throat, Throat Swelling, Tongue Swelling, Facial Pain, Neck Pain, Neck Mass, Other - Cardiovascular Cardiovascular: Dyspnea - Respiratory Respiratory: Cough, Dyspnea - Gastrointestinal Gastrointestinal: absent: As Per HPI, Abdominal Pain, Belching, Bloating, Change in Bowel Habits, Change in Stool Character, Coffee Ground Emesis, Constipation, Cramping, Diarrhea, Dyspepsia, Dysphagia, Early Satiety, Excessive Flatus, Fecal Incontinence, Heartburn, Hematemesis, Hematochezia, Loose Stools, Melena, Nausea, Odynophagia, Temesmus, Vomiting, Other - Genitourinary Genitourinary: absent: As Per HPI, Change in Urinary Stream, Difficulty Urinating, Dysuria, Flank Pain, Hematuria, Pyuria, Nocturia, Urinary Incontinence, Urinary Frequency, Urinary Hesitance, Urinary Urgency, Voiding Freq/Small Amts, Freq UTI, Hx Renal/Bladder Calculi, Hx /Renal Surgery, Bl adder Distension, Other - Musculoskeletal Musculoskeletal: absent: As Per HPI, Abnormal Gait, Arthralgias, Atrophy, Back Pain, Deformity, Joint Swelling, Limited Range of Motion, Loss of Height, Muscle Cramps, Muscle Weakness, Myalgias, Neck Pain, Numbness, Radiating Pain into Limb, Stiffness, Tingling, Other - Integumentary Integumentary: absent: As Per HPI, Acne, Alopecia, Bleeding Lesions, Change in Hair, Change in Nails, Change in Pigmentation, Changing Lesions, Dry Skin, Erythema, Furuncle, Hirsutism, Lesions, New Lesions, Non-Healing Lesions, Photosensitivity, Pruritus, Rash, Skin Pain, Skin Ulcer, Sores, Striae, Swelling, Unusual Bruising, Wounds, Jaundice, Other - Neurological Neurological: absent: As Per HPI, Abnormal Gait, Abnormal Hearing, Abnormal Movements, Abnormal Speech, Behavioral Changes, Burning Sensations, Confusion, Convulsions, Disequilibrium, Dizziness, Numbness, Focal Weakness, Frequent Falls, Headaches, Lack of Coordination, Loss of Vision, Memory Loss, Paresthesias, Radicular Pain, Restless Legs, Sensory Deficit, Syncope, Tingling, Tremor, Vertigo, Weakness, Other Visual Disturbances, Other - Psychiatric Psychiatric: absent: As Per HPI, Abnormal Sleep Pattern, Anhedonia, Anxiety, Auditory Hallucinations, Behavioral Changes, Change in Appetite, Change in Libido, Confusion, Depression, Difficulty Concentrating, Hallucinations, Homicidal Ideation, Hopelessness, Irritability, Memory Loss, Mood Swings, Panic Attacks, Paranoia, Suicidal Ideation, Visual Hallucinations, Tactile Hallucinations, Other - Endocrine Endocrine: absent: As Per HPI, Change in Body Appearance, Change in Libido, Cold Intolorance, Deepening of Voice, Excessive Sweating, Fatigue, Flushing, Heat Intolorance, Increase in Ring/Shoe/Hat Size, Palpitations, Polydipsia, Polyphagia, Polyuria, Other - Hematologic/Lymphatic Hematologic: absent: As Per HPI, Easy Bleeding, Easy Bruising, Lymphadenopathy, Other Past Patient History - Tetanus Immunizations Tetanus Immunization: Unknown - Past Medical History & Family History Past Medical History?: Yes - Past Social History Smoking Status: Never Smoked - CARDIAC Hx Atrial Fibrillation: Yes Hx Cardia Arrhythmia: Yes (A-FIB) Hx Congestive Heart Failure: Yes Hx Hypercholesterolemia: Yes Hx Hypertension: Yes Hx Pacemaker: Yes - PULMONARY Hx Asthma: Yes Hx Chronic Obstructive Pulmonary Disease (COPD): Yes Hx Pneumonia: Yes - NEUROLOGICAL Hx Neurological Disorder: No - HEENT Hx HEENT Problems: No - RENAL Hx Chronic Kidney Disease: Yes - ENDOCRINE/METABOLIC Hx Hypothyroidism: Yes - HEMATOLOGICAL/ONCOLOGICAL Hx Anemia: Yes Hx Human Immunodeficiency Virus (HIV): No - INTEGUMENTARY Hx Dermatological Problems: No - MUSCULOSKELETAL/RHEUMATOLOGICAL Hx Arthritis: Yes Hx Falls: No - GASTROINTESTINAL Hx Gastrointestinal Disorders: Yes Hx Liver Failure: Yes - GENITOURINARY/GYNECOLOGICAL Hx Genitourinary Disorders: No - PSYCHIATRIC Hx Depression: Yes Hx Substance Use: No - SURGICAL HISTORY Hx Surgeries: Yes Hx Cataract Extraction: Yes (BILAT.) Hx Cardiac Catheterization: Yes Other/Comment: HX: CYSTO WITH STENT PLACED. HX: RECONSTRUCTION OF VAGINA. HX: CYSTOSCOPY RIGHT URETERAL STENT EXCHANGE(01/29/18) - ANESTHESIA Hx Anesthesia: Yes Hx Anesthesia Reactions: No Hx Malignant Hyperthermia: No Meds Allergies/Adverse Reactions: Allergies Allergy/AdvReac Type Severity Reaction Status Date / Time metoclopramide [From Reglan] Allergy ANAPHYLAXIS Verified 08/03/18 23:19 - Medications Medications: Current Medications Albuterol/Ipratropium (Duoneb 3 Mg/0.5 Mg (3 Ml) Ud) 3 ml INH RQ6 [facility] Last Admin: 08/05/18 07:10 Dose: 3 ml Anastrozole (Arimidex 1 Mg Tab) 1 mg PO DAILY [facility] Last Admin: 08/05/18 09:07 Dose: 1 mg Calcium Acetate (Phoslo) 667 mg PO DAILY [facility] Last Admin: 08/05/18 09:05 Dose: 667 mg Dextrose (Dextrose 50% Inj) 0 ml IV STAT PRN; Protocol PRN Reason: Hypoglycemia Protocol Dextrose (Glutose 15) 0 gm PO ONCE PRN; Protocol PRN Reason: Hypoglycemia Protocol Diltiazem HCl (Cardizem Cd) 120 mg PO DAILY [facility] Last Admin: 08/05/18 09:06 Dose: 120 mg Enoxaparin Sodium (Lovenox) 30 mg SC DAILY [facility]; Protocol Last Admin: 08/05/18 09:04 Dose: 30 mg Ergocalciferol (Drisdol 50,000 Intl Units Cap) 1 cap PO QWK [facility] Escitalopram Oxalate (Lexapro) 20 mg PO DAILY [facility] Last Admin: 08/05/18 09:06 Dose: 20 mg Furosemide (Lasix) 40 mg IVP BID [facility] Last Admin: 08/05/18 09:03 Dose: 40 mg Glucagon (Glucagen Diagnostic Kit) 0 mg IM STAT PRN; Protocol PRN Reason: Hypoglycemia Protocol Insulin Detemir (Levemir) 15 units SC [facility] Last Admin: 08/04/18 22:01 Dose: 15 u Insulin Human Lispro (Humalog) 0 units SC [facility]; Protocol Last Admin: 08/05/18 06:35 Dose: 6 units Insulin Human Regular (Humulin R) 0 units SC ACHS PRN; Protocol PRN Reason: accucheck coverage Last Admin: 08/04/18 08:00 Dose: 6 units Lactulose (Enulose) 20 gm PO TID [facility] Last Admin: 08/05/18 09:03 Dose: 20 gm Levothyroxine Sodium (Synthroid) 25 mcg PO DAILY@0630 [facility] Last Admin: 08/05/18 05:45 Dose: 25 mcg Methylprednisolone (Solu-Medrol) 40 mg IVP BID [facility] Last Admin: 08/05/18 09:05 Dose: 40 mg Potassium Chloride (K-Dur 20 Meq Er Tab) 20 meq PO BID [facility] Last Admin: 08/05/18 09:05 Dose: 20 meq Rifaximin (Xifaxan) 550 mg PO BID [facility]; Protocol Last Admin: 08/05/18 09:06 Dose: 550 mg Tiotropium Norden (Spiriva) 18 mcg INH DAILY [facility] Last Admin: 08/05/18 09:03 Dose: 18 mcg Physical Exam - Constitutional Appears: Non-toxic - Head Exam Head Exam: NORMAL INSPECTION - Eye Exam Eye Exam: Normal appearance - ENT Exam ENT Exam: Mucous Membranes Moist - Neck Exam Neck exam: Positive for: Normal Inspection - Respiratory Exam Respiratory Exam: Decreased Breath Sounds - Cardiovascular Exam Cardiovascular Exam: Irregular Rhythm - GI/Abdominal Exam GI & Abdominal Exam: Normal Bowel Sounds - Rectal Exam Rectal Exam: Deferred - Extremities Exam Extremities exam: Negative for: pedal edema - Back Exam Back exam: NORMAL INSPECTION - Neurological Exam Neurological exam: Alert, Oriented x3 - Psychiatric Exam Psychiatric exam: Normal Affect - Skin Skin Exam: Normal Color Results - Vital Signs Recent Vital Signs: Last Vital Signs Temp 97.6 F 08/05/18 08:34 Pulse 106 H 08/05/18 09:06 Resp 20 08/05/18 08:34 BP 171/75 H 08/05/18 09:06 Pulse Ox 94 L 08/05/18 08:34 - Labs Result Diagrams: 08/04/18 02:05 08/04/18 02:05 Labs: Laboratory Results - last 24 hr 08/04/18 08/04/18 08/04/18 12:36 16:44 21:31 POC Glucose (mg/dL) 431 H* 413 H* 331 H 08/05/18 08/05/18 05:57 10:59 POC Glucose (mg/dL) 304 H 349 H - EKG Data EKG Interpreted by: Myself Assessment & Plan (1) Acute diastolic heart failure due to valvular disease Assessment and Plan: will need improved afterload reduction. recommend ARB therapy Status: Acute (2) Atrial fibrillation Assessment and Plan: chronic. continue cardizem for rate control Status: Acute (3) HTN (hypertension) Assessment and Plan: start Losartan Status: Chronic (4) Mitral valve regurgitation Assessment and Plan: given advanced age, not ideal candidate for invasive procedures. medical therapy Status: Chronic
[2018-08-05] MEDS: Insulin Detemir 100 Units/ml Inj SC SCH (21:55)
[2018-08-06] MEDS: Albuterol-Ipratrop 3 mg / 0.5 (3 ml) UD INH SCH ×4 (02:49→19:31)
--- NOTE | 2018-08-06 07:18 | CP.PCM.HP ---
History of Present Illness - History of Present Illness History of Present Illness: This is an 82 y/o female very poor historian shabnam presented to Er due to progressive SOB and cough, Noted to have CHF and moderate pleural effusion. ProBNP was 1900. Has a hx of HTN, atrial fibrillation COPD ,DM 2 hypothyroidism, hyperlipidemia. Apparently she had progressively become SOB in the past two weeks and noted leg edema. Due to worsening of symptoms she was brought to ER. Present on Admission - Present on Admission Any Indicators Present on Admission: No History of DVT/PE: No History of Uncontrolled Diabetes: Yes Urinary Catheter: No Decubitus Ulcer Present: No Review of Systems - Respiratory Respiratory: Cough, Dyspnea, Dyspnea on Exertion - Musculoskeletal Additional comments: leg edema - Psychiatric Psychiatric: Anxiety, Depression Past Patient History - Tetanus Immunizations Tetanus Immunization: Unknown - Past Medical History & Family History Past Medical History?: Yes - Past Social History Smoking Status: Never Smoked - CARDIAC Hx Atrial Fibrillation: Yes Hx Cardia Arrhythmia: Yes (A-FIB) Hx Congestive Heart Failure: Yes Hx Hypercholesterolemia: Yes Hx Hypertension: Yes Hx Pacemaker: Yes - PULMONARY Hx Asthma: Yes Hx Chronic Obstructive Pulmonary Disease (COPD): Yes Hx Pneumonia: Yes - NEUROLOGICAL Hx Neurological Disorder: No - HEENT Hx HEENT Problems: No - RENAL Hx Chronic Kidney Disease: Yes - ENDOCRINE/METABOLIC Hx Hypothyroidism: Yes - HEMATOLOGICAL/ONCOLOGICAL Hx Anemia: Yes Hx Human Immunodeficiency Virus (HIV): No - INTEGUMENTARY Hx Dermatological Problems: No - MUSCULOSKELETAL/RHEUMATOLOGICAL Hx Arthritis: Yes Hx Falls: No - GASTROINTESTINAL Hx Gastrointestinal Disorders: Yes Hx Liver Failure: Yes - GENITOURINARY/GYNECOLOGICAL Hx Genitourinary Disorders: No - PSYCHIATRIC Hx Depression: Yes Hx Substance Use: No - SURGICAL HISTORY Hx Surgeries: Yes Hx Cataract Extraction: Yes (BILAT.) Hx Cardiac Catheterization: Yes Other/Comment: HX: CYSTO WITH STENT PLACED. HX: RECONSTRUCTION OF VAGINA. HX: CYSTOSCOPY RIGHT URETERAL STENT EXCHANGE(01/29/18) - ANESTHESIA Hx Anesthesia: Yes Hx Anesthesia Reactions: No Hx Malignant Hyperthermia: No Meds Allergies/Adverse Reactions: Allergies Allergy/AdvReac Type Severity Reaction Status Date / Time metoclopramide [From Reglan] Allergy ANAPHYLAXIS Verified 08/03/18 23:19 Physical Exam - Head Exam Head Exam: NORMAL INSPECTION - Eye Exam Eye Exam: Normal appearance - ENT Exam ENT Exam: Mucous Membranes Moist - Respiratory Exam Respiratory Exam: Decreased Breath Sounds, Rales, Rhonchi - Cardiovascular Exam Cardiovascular Exam: Irregular Rhythm - GI/Abdominal Exam GI & Abdominal Exam: Normal Bowel Sounds - Neurological Exam Neurological exam: CN II-XII Intact - Psychiatric Exam Psychiatric exam: Anxious Results - Vital Signs Recent Vital Signs: Last Vital Signs Temp 97.3 F L 08/06/18 04:41 Pulse 89 08/06/18 04:41 Resp 20 08/06/18 04:41 BP 144/82 08/06/18 04:41 Pulse Ox 97 08/06/18 04:41 - Labs Result Diagrams: 08/08/18 10:20 08/08/18 10:20 Labs: Laboratory Results - last 24 hr 08/05/18 08/05/18 08/05/18 10:59 16:04 21:33 POC Glucose (mg/dL) 349 H 339 H 335 H 08/06/18 05:02 POC Glucose (mg/dL) 373 H Assessment & Plan (1) CHF (congestive heart failure) Status: Acute Priority: Medium (2) Pleural effusion Status: Acute (3) Anxiety Status: Acute (4) Afib Status: Chronic (5) HTN (hypertension) Status: Chronic (6) Mitral valve regurgitation Status: Chronic (7) Pulmonary hypertension Status: Chronic Priority: Medium - Assessment and Plan (Free Text) Plan: start IV Lasix Pulmonary consult Cardiology consult check labs monitor cardiac enzymes ABG's neb tx low salt low fat diet cardiac eval telemetry
--- NOTE | 2018-08-06 07:21 | CP.PCM.PN ---
Subjective - Date & Time of Evaluation Date of Evaluation: 08/05/18 Time of Evaluation: 14:20 - Subjective Subjective: Patient feels a lot better. Still with elevated BP Has slight SOB Noted elevated FBS, Objective - Vital Signs/Intake and Output Vital Signs (last 24 hours): Temp Pulse Resp BP Pulse Ox 97.3 F L 89 20 144/82 97 08/06/18 04:41 08/06/18 04:41 08/06/18 04:41 08/06/18 04:41 08/06/18 04:41 - Medications Medications: Current Medications Albuterol/Ipratropium (Duoneb 3 Mg/0.5 Mg (3 Ml) Ud) 3 ml INH RQ6 [facility] Last Admin: 08/06/18 02:49 Dose: 3 ml Anastrozole (Arimidex 1 Mg Tab) 1 mg PO DAILY [facility] Last Admin: 08/05/18 09:07 Dose: 1 mg Calcium Acetate (Phoslo) 667 mg PO DAILY [facility] Last Admin: 08/05/18 09:05 Dose: 667 mg Dextrose (Dextrose 50% Inj) 0 ml IV STAT PRN; Protocol PRN Reason: Hypoglycemia Protocol Dextrose (Glutose 15) 0 gm PO ONCE PRN; Protocol PRN Reason: Hypoglycemia Protocol Diltiazem HCl (Cardizem Cd) 120 mg PO DAILY [facility] Last Admin: 08/05/18 09:06 Dose: 120 mg Enoxaparin Sodium (Lovenox) 30 mg SC DAILY [facility]; Protocol Last Admin: 08/05/18 09:04 Dose: 30 mg Ergocalciferol (Drisdol 50,000 Intl Units Cap) 1 cap PO QWK [facility] Escitalopram Oxalate (Lexapro) 20 mg PO DAILY [facility] Last Admin: 08/05/18 09:06 Dose: 20 mg Furosemide (Lasix) 40 mg IVP BID [facility] Last Admin: 08/05/18 17:22 Dose: 40 mg Glucagon (Glucagen Diagnostic Kit) 0 mg IM STAT PRN; Protocol PRN Reason: Hypoglycemia Protocol Insulin Detemir (Levemir) 15 units SC HS [facility] Last Admin: 08/05/18 21:55 Dose: 15 unit Insulin Human Lispro (Humalog) 0 units SC [facility]; Protocol Last Admin: 08/05/18 22:00 Dose: 2 units Insulin Human Regular (Humulin R) 0 units SC ACHS PRN; Protocol PRN Reason: accucheck coverage Last Admin: 08/04/18 08:00 Dose: 6 units Lactulose (Enulose) 20 gm PO TID [facility] Last Admin: 08/05/18 17:21 Dose: 20 gm Levothyroxine Sodium (Synthroid) 25 mcg PO DAILY@0630 [facility] Last Admin: 08/05/18 05:45 Dose: 25 mcg Losartan Potassium (Cozaar) 25 mg PO DAILY [facility] Last Admin: 08/05/18 13:37 Dose: 25 mg Methylprednisolone (Solu-Medrol) 40 mg IVP BID [facility] Last Admin: 08/05/18 17:24 Dose: 40 mg Potassium Chloride (K-Dur 20 Meq Er Tab) 20 meq PO BID [facility] Last Admin: 08/05/18 17:23 Dose: 20 meq Rifaximin (Xifaxan) 550 mg PO BID [facility]; Protocol Last Admin: 08/05/18 17:22 Dose: 550 mg Tiotropium White (Spiriva) 18 mcg INH DAILY [facility] Last Admin: 08/05/18 09:03 Dose: 18 mcg - Labs Labs: 08/04/18 02:05 08/04/18 02:05 - Head Exam Head Exam: NORMAL INSPECTION - Eye Exam Eye Exam: Normal appearance - ENT Exam ENT Exam: Mucous Membranes Moist - Respiratory Exam Respiratory Exam: Decreased Breath Sounds - Cardiovascular Exam Cardiovascular Exam: Irregular Rhythm - GI/Abdominal Exam GI & Abdominal Exam: Normal Bowel Sounds - Psychiatric Exam Psychiatric exam: Anxious Assessment and Plan (1) CHF (congestive heart failure) Status: Acute (2) Pleural effusion Status: Acute (3) Atrial fibrillation Status: Acute (4) Severe mitral insufficiency Status: Acute (5) Afib Status: Chronic (6) DM2 (diabetes mellitus, type 2) Status: Chronic (7) HTN (hypertension) Status: Chronic (8) Pulmonary hypertension Status: Chronic - Assessment and Plan (Free Text) Plan: Continue cautious diuresis Cont water restriction follow up with cardiology and Pulmonary cont telemetry
[2018-08-06] MEDS: Insulin Lispro (humaLOG) 100 Units/ml Inj SC SCH ×4 (08:07→21:51)
[2018-08-06] MEDS: Enoxaparin 30 mg Syringe SC SCH (10:03)
[2018-08-06] MEDS: Tiotropium 18 mcg Cap For Inhalation INH SCH (10:04)
[2018-08-06] MEDS: Levothyroxine 25 MCG TAB PO SCH (10:04)
[2018-08-06] MEDS: diltiaZEM 120 mg/24 Hours CD Cap PO SCH (10:06)
[2018-08-06] MEDS: Potassium Chloride 20 mEq ER Tab PO SCH (10:07)
[2018-08-06] MEDS: MethylPREDNISolone 40 mg Vial IVP SCH ×2 (10:09→18:54)
--- NOTE | 2018-08-06 10:41 | CP.PCM.PN ---
Subjective - Date & Time of Evaluation Date of Evaluation: 08/06/18 Time of Evaluation: 10:15 - Subjective Subjective: patient has no current chest pain. Objective - Vital Signs/Intake and Output Vital Signs (last 24 hours): Temp Pulse Resp BP Pulse Ox 97.4 F L 75 18 155/76 H 99 08/06/18 07:46 08/06/18 10:06 08/06/18 07:46 08/06/18 10:08 08/06/18 07:46 - Medications Medications: Current Medications Albuterol/Ipratropium (Duoneb 3 Mg/0.5 Mg (3 Ml) Ud) 3 ml INH RQ6 [facility] Last Admin: 08/06/18 07:34 Dose: 3 ml Anastrozole (Arimidex 1 Mg Tab) 1 mg PO DAILY [facility] Last Admin: 08/05/18 09:07 Dose: 1 mg Calcium Acetate (Phoslo) 667 mg PO DAILY [facility] Last Admin: 08/06/18 10:09 Dose: 667 mg Dextrose (Dextrose 50% Inj) 0 ml IV STAT PRN; Protocol PRN Reason: Hypoglycemia Protocol Dextrose (Glutose 15) 0 gm PO ONCE PRN; Protocol PRN Reason: Hypoglycemia Protocol Diltiazem HCl (Cardizem Cd) 120 mg PO DAILY [facility] Last Admin: 08/06/18 10:06 Dose: 120 mg Enoxaparin Sodium (Lovenox) 30 mg SC DAILY [facility]; Protocol Last Admin: 08/06/18 10:03 Dose: 30 mg Ergocalciferol (Drisdol 50,000 Intl Units Cap) 1 cap PO QWK [facility] Escitalopram Oxalate (Lexapro) 20 mg PO DAILY [facility] Last Admin: 08/06/18 10:09 Dose: 20 mg Furosemide (Lasix) 40 mg IVP BID [facility] Last Admin: 08/06/18 10:08 Dose: 40 mg Glucagon (Glucagen Diagnostic Kit) 0 mg IM STAT PRN; Protocol PRN Reason: Hypoglycemia Protocol Insulin Detemir (Levemir) 15 units SC HS [facility] Last Admin: 08/05/18 21:55 Dose: 15 unit Insulin Human Lispro (Humalog) 0 units SC [facility]; Protocol Last Admin: 08/06/18 08:07 Dose: 8 units Insulin Human Regular (Humulin R) 0 units SC ACHS PRN; Protocol PRN Reason: accucheck coverage Last Admin: 08/04/18 08:00 Dose: 6 units Lactulose (Enulose) 20 gm PO TID [facility] Last Admin: 08/06/18 10:03 Dose: 20 gm Levothyroxine Sodium (Synthroid) 25 mcg PO DAILY@0630 [facility] Last Admin: 08/06/18 10:04 Dose: 25 mcg Losartan Potassium (Cozaar) 25 mg PO DAILY [facility] Last Admin: 08/06/18 10:06 Dose: 25 mg Metformin HCl (Glucophage) 500 mg PO BIDWM [facility] Last Admin: 08/06/18 10:05 Dose: 500 mg Methylprednisolone (Solu-Medrol) 40 mg IVP BID [facility] Last Admin: 08/05/18 17:24 Dose: 40 mg Potassium Chloride (K-Dur 20 Meq Er Tab) 20 meq PO BID [facility] Last Admin: 08/06/18 10:07 Dose: 20 meq Rifaximin (Xifaxan) 550 mg PO BID [facility]; Protocol Last Admin: 08/06/18 10:03 Dose: 550 mg Sitagliptin Phosphate (Januvia) 100 mg PO DAILY [facility] Last Admin: 08/06/18 10:05 Dose: 100 mg Tiotropium Sisters (Spiriva) 18 mcg INH DAILY [facility] Last Admin: 08/06/18 10:04 Dose: 18 mcg - Labs Labs: 08/04/18 02:05 08/04/18 02:05 - Constitutional Appears: Non-toxic - Head Exam Head Exam: NORMAL INSPECTION - Eye Exam Eye Exam: Normal appearance - ENT Exam ENT Exam: Mucous Membranes Moist - Neck Exam Neck Exam: Full ROM - Respiratory Exam Respiratory Exam: NORMAL BREATHING PATTERN - Cardiovascular Exam Cardiovascular Exam: Irregular Rhythm - GI/Abdominal Exam GI & Abdominal Exam: Normal Bowel Sounds - Rectal Exam Rectal Exam: Deferred - Extremities Exam Extremities Exam: absent: Pedal Edema - Back Exam Back Exam: NORMAL INSPECTION - Neurological Exam Neurological Exam: Alert - Psychiatric Exam Psychiatric exam: Normal Affect - Skin Skin Exam: Normal Color Assessment and Plan (1) Acute diastolic heart failure due to valvular disease Assessment & Plan: improving. conintue medical therapy. Status: Acute (2) Atrial fibrillation Assessment & Plan: rate is controlled. not on anticoagulation Status: Acute (3) HTN (hypertension) Assessment & Plan: increase Losartan to 50 mg daily Status: Chronic (4) Mitral valve regurgitation Assessment & Plan: medical therapy Status: Chronic
[2018-08-06] MEDS ORDERED: Sodium Chloride 3% for Inhalation 4 ML VIAL.NEB IH PRN (12:41)
[2018-08-06 15:09] LABS: CALCIUM 9.9 mg/dL (8.4-10.2); GFR NON-AFRICAN AMERICAN 53
[2018-08-06 15:10] LABS: BLOOD UREA NITROGEN 44 mg/dl (7-17)
[2018-08-06] MEDS: guaiFENesin DM 200 mg-20 mg/10 ml UD PO PRN (15:21)
[2018-08-06] MEDS: Azithromycin 500 MG in Sodium Chloride 0.9% 250 ML IVPB SCH (15:21)
[2018-08-06] MEDS: Benzocaine/Menthol (Cepacol) Lozenge PO PRN (18:55)
[2018-08-06] MEDS: Insulin Detemir 100 Units/ml Inj SC SCH (21:27)
--- NOTE | 2018-08-07 00:30 | CON ---
DATE: 08/06/2018 HISTORY OF PRESENT ILLNESS: Ms. Sheth is an 82-year-old female with history of congestive heart failure, coronary artery disease, atrial fibrillation, hypertension, and diabetes mellitus with hypothyroidism and hyperlipidemia, who was admitted via the emergency room because of shortness of breath, progressively worsening for the past several days. She was noted to be in congestive heart failure in the emergency room with an elevated proBNP and a chest x-ray that showed pulmonary congestion. She was admitted to the medical floor because her condition did not improve, Pulmonary consultation was requested. She is unable to give any history, but was out of bed to chair. She still has some shortness of breath and cough with pulmonary congestion. PHYSICAL EXAMINATION: VITAL SIGNS: Blood pressure 144/82, pulse of 89, respiratory rate of 20. She is afebrile. O2 sat 97% on nasal cannula oxygen. HEENT: Mouth shows fair hygiene with mucous engorgement of pharynx. SKIN: Shows fair turgor. NECK: JVP flat. LUNGS: Bilateral coarse rales with dullness at both bases. HEART: S1, S2 irregular. ABDOMEN: Soft, nontender. No organomegaly. EXTREMITIES: Show trace pitting pedal edema. CENTRAL NERVOUS SYSTEM: Grossly intact. The patient is alert and oriented x3. LABORATORY DATA: Chest x-ray shows cardiomegaly with small pericardial effusion, [id number] right-sided effusion and edfd-ub-nybetcri-sized bibasilar atelectasis, small left effusion and small basilar atelectasis, has upper lobe scarring, probably underlying pulmonary congestion. EKG: Atrial fibrillation with occasional PVCs. WBC 7.7, hemoglobin 13.2, platelet count 88,000. The rest of the labs reviewed and sodium of 138, potassium 4.3, BUN of 19, creatinine 0.9, glucose of 199. ProBNP is 1900. IMPRESSION: Acute congestive heart failure with chronic obstructive pulmonary disease exacerbation, one has to rule out acute coronary syndrome, hypertension, poorly controlled. One also has to rule out superimposed pneumonia. PLAN: Obtain sputum for cultures. Continue therapy as ordered by Cardiology. Diuretics p.r.n. Oxygen therapy we will give as well as bronchodilators. Antibiotic empirically already ordered. Further therapy will depend on findings. Marco Hughes MD [facility] # [id number]
[2018-08-07] MEDS: Albuterol-Ipratrop 3 mg / 0.5 (3 ml) UD INH SCH ×4 (00:59→19:28)
[2018-08-07] MEDS: Levothyroxine 25 MCG TAB PO SCH (06:03)
[2018-08-07] MEDS: Tiotropium 18 mcg Cap For Inhalation INH SCH (08:50)
[2018-08-07] MEDS: diltiaZEM 120 mg/24 Hours CD Cap PO SCH (08:51)
[2018-08-07] MEDS: Insulin Lispro (humaLOG) 100 Units/ml Inj SC SCH ×4 (08:52→21:39)
[2018-08-07] MEDS: Enoxaparin 30 mg Syringe SC SCH (08:54)
[2018-08-07] MEDS: MethylPREDNISolone 40 mg Vial IVP SCH ×2 (08:54→17:41)
[2018-08-07] MEDS: Azithromycin 500 MG in Sodium Chloride 0.9% 250 ML IVPB SCH (08:55)
[2018-08-07] MEDS: guaiFENesin DM 200 mg-20 mg/10 ml UD PO PRN ×2 (09:02→17:38)
--- NOTE | 2018-08-07 12:01 | CP.PCM.PN ---
Subjective - Date & Time of Evaluation Date of Evaluation: 08/07/18 Time of Evaluation: 12:01 - Subjective Subjective: COUGH IMPROVING NO CHEST PAINS SOB IMPROVING Objective - Vital Signs/Intake and Output Vital Signs (last 24 hours): Temp Pulse Resp BP Pulse Ox 97.9 F 89 18 153/81 H 98 08/07/18 11:41 08/07/18 11:41 08/07/18 11:41 08/07/18 11:41 08/07/18 11:41 Intake and Output: 08/07/18 08/07/18 06:59 18:59 Intake Total 1350 Output Total 1103 Balance 247 - Medications Medications: Current Medications Albuterol/Ipratropium (Duoneb 3 Mg/0.5 Mg (3 Ml) Ud) 3 ml INH RQ6 ON LICENSE OF [facility] Last Admin: 08/07/18 07:43 Dose: 3 ml Anastrozole (Arimidex 1 Mg Tab) 1 mg PO DAILY ON [facility] OF [facility] Last Admin: 08/07/18 08:48 Dose: 1 mg Benzocaine/Menthol (Cepacol Sore Throat) 1 malu PO Q2 PRN PRN Reason: Sore Throat Last Admin: 08/06/18 18:55 Dose: 1 malu Calcium Acetate (Phoslo) 667 mg PO DAILY ON [facility] OF [facility] Last Admin: 08/07/18 08:52 Dose: 667 mg Dextrose (Dextrose 50% Inj) 0 ml IV STAT PRN; Protocol PRN Reason: Hypoglycemia Protocol Dextrose (Glutose 15) 0 gm PO ONCE PRN; Protocol PRN Reason: Hypoglycemia Protocol Diltiazem HCl (Cardizem Cd) 120 mg PO DAILY ON [facility] OF [facility] Last Admin: 08/07/18 08:51 Dose: 120 mg Enoxaparin Sodium (Lovenox) 30 mg SC DAILY ON [facility] OF [facility]; Protocol Last Admin: 08/07/18 08:54 Dose: 30 mg Ergocalciferol (Drisdol 50,000 Intl Units Cap) 1 cap PO QWK ON LICENSE OF [facility] Escitalopram Oxalate (Lexapro) 20 mg PO DAILY ON [facility] OF [facility] Last Admin: 08/07/18 08:51 Dose: 20 mg Furosemide (Lasix) 40 mg IVP BID ON [facility] OF [facility] Last Admin: 08/07/18 08:53 Dose: 40 mg Glucagon (Glucagen Diagnostic Kit) 0 mg IM STAT PRN; Protocol PRN Reason: Hypoglycemia Protocol Guaifenesin/Dextromethorphan (Robitussin Dm) 10 ml PO Q6 PRN PRN Reason: Cough Last Admin: 08/07/18 09:02 Dose: 10 ml Azithromycin 500 mg/ Sodium (Chloride) 250 mls @ 250 mls/hr IVPB DAILY ON [facility]; Protocol Last Admin: 08/07/18 08:55 Dose: 250 mls/hr Insulin Detemir (Levemir) 15 units SC HS ON LICENSE OF [facility] Last Admin: 08/06/18 21:27 Dose: 15 unit Insulin Human Lispro (Humalog) 0 units SC [facility] OF [facility]; Protocol Last Admin: 08/07/18 08:52 Dose: 8 units Insulin Human Regular (Humulin R) 0 units SC ACHS PRN; Protocol PRN Reason: accucheck coverage Last Admin: 08/04/18 08:00 Dose: 6 units Lactulose (Enulose) 20 gm PO TID ON LICENSE OF [facility] Last Admin: 08/07/18 08:52 Dose: 20 gm Levothyroxine Sodium (Synthroid) 25 mcg PO DAILY@0630 ON [facility] Last Admin: 08/07/18 06:03 Dose: 25 mcg Losartan Potassium (Cozaar) 25 mg PO DAILY ON [facility] OF [facility] Last Admin: 08/07/18 08:50 Dose: 25 mg Metformin HCl (Glucophage) 500 mg PO BIDWM ON LICENSE OF [facility] Last Admin: 08/07/18 08:51 Dose: 500 mg Methylprednisolone (Solu-Medrol) 40 mg IVP BID ON LICENSE OF [facility] Last Admin: 08/07/18 08:54 Dose: 40 mg Rifaximin (Xifaxan) 550 mg PO BID ON [facility] OF [facility]; Protocol Last Admin: 08/07/18 08:50 Dose: 550 mg Sitagliptin Phosphate (Januvia) 100 mg PO DAILY ON [facility] Last Admin: 08/07/18 08:52 Dose: 100 mg Tiotropium [place] (Spiriva) 18 mcg INH DAILY ON LICENSE OF [facility] Last Admin: 08/07/18 08:50 Dose: 18 mcg - Labs Labs: 08/04/18 02:05 08/06/18 13:37 - Constitutional Appears: Chronically Ill - Head Exam Head Exam: ATRAUMATIC, NORMAL INSPECTION, NORMOCEPHALIC - Eye Exam Eye Exam: EOMI, Normal appearance, PERRL Pupil Exam: NORMAL ACCOMODATION, PERRL - ENT Exam ENT Exam: Mucous Membranes Moist, Normal Exam - Neck Exam Neck Exam: Full ROM, Normal Inspection. absent: Lymphadenopathy - Respiratory Exam Respiratory Exam: Decreased Breath Sounds, Prolonged Expiratory Phase, Rales, Wheezes, NORMAL BREATHING PATTERN - Cardiovascular Exam Cardiovascular Exam: REGULAR RHYTHM, +S1, +S2. absent: Murmur - GI/Abdominal Exam GI & Abdominal Exam: Soft, Normal Bowel Sounds. absent: Tenderness - Rectal Exam Rectal Exam: NORMAL INSPECTION - Extremities Exam Extremities Exam: Full ROM, Normal Capillary Refill, Normal Inspection. absent: Joint Swelling, Pedal Edema - Back Exam Back Exam: NORMAL INSPECTION - Neurological Exam Neurological Exam: Alert, Awake, CN II-XII Intact, Normal Gait, Oriented x3 - Psychiatric Exam Psychiatric exam: Normal Affect, Normal Mood - Skin Skin Exam: Dry, Intact, Normal Color, Warm Assessment and Plan - Assessment and Plan (Free Text) Assessment: CHF ASTHMA/COPD EXAC PLEURAL EFFUSION--?SUPERIMPOSED PNEUMONIA HTN Plan: CONTINUE CURRENT RX CXR IN AM
[2018-08-07] MEDS: Insulin Detemir 100 Units/ml Inj SC SCH (21:40)
[2018-08-07] MEDS: Benzocaine/Menthol (Cepacol) Lozenge PO PRN (21:45)
[2018-08-08] MEDS: guaiFENesin DM 200 mg-20 mg/10 ml UD PO PRN ×3 (00:44→17:37)
[2018-08-08] MEDS: Albuterol-Ipratrop 3 mg / 0.5 (3 ml) UD INH SCH ×4 (01:10→19:08)
[2018-08-08] MEDS: Levothyroxine 25 MCG TAB PO SCH (06:34)
[2018-08-08] MEDS: Insulin Lispro (humaLOG) 100 Units/ml Inj SC SCH ×3 (06:34→17:37)
--- NOTE | 2018-08-08 08:40 | CP.PCM.PN ---
Subjective - Date & Time of Evaluation Date of Evaluation: 08/08/18 Time of Evaluation: 08:40 - Subjective Subjective: SOB IMPROVING COUGH PERSISTS Objective - Vital Signs/Intake and Output Vital Signs (last 24 hours): Temp Pulse Resp BP Pulse Ox 97.7 F 108 H 20 157/84 H 99 08/08/18 08:07 08/08/18 08:07 08/08/18 08:07 08/08/18 08:07 08/08/18 08:07 - Medications Medications: Current Medications Albuterol/Ipratropium (Duoneb 3 Mg/0.5 Mg (3 Ml) Ud) 3 ml INH RQ6 [facility] Last Admin: 08/08/18 07:29 Dose: 3 ml Anastrozole (Arimidex 1 Mg Tab) 1 mg PO DAILY [facility] Last Admin: 08/07/18 08:48 Dose: 1 mg Benzocaine/Menthol (Cepacol Sore Throat) 1 malu PO Q2 PRN PRN Reason: Sore Throat Last Admin: 08/07/18 21:45 Dose: 1 malu Calcium Acetate (Phoslo) 667 mg PO DAILY [facility] Last Admin: 08/07/18 08:52 Dose: 667 mg Dextrose (Dextrose 50% Inj) 0 ml IV STAT PRN; Protocol PRN Reason: Hypoglycemia Protocol Dextrose (Glutose 15) 0 gm PO ONCE PRN; Protocol PRN Reason: Hypoglycemia Protocol Diltiazem HCl (Cardizem Cd) 120 mg PO DAILY [facility] Last Admin: 08/07/18 08:51 Dose: 120 mg Enoxaparin Sodium (Lovenox) 30 mg SC DAILY [facility]; Protocol Last Admin: 08/07/18 08:54 Dose: 30 mg Ergocalciferol (Drisdol 50,000 Intl Units Cap) 1 cap PO QWK [facility] Escitalopram Oxalate (Lexapro) 20 mg PO DAILY [facility] Last Admin: 08/07/18 08:51 Dose: 20 mg Furosemide (Lasix) 40 mg IVP BID [facility] Last Admin: 08/07/18 17:39 Dose: 40 mg Glucagon (Glucagen Diagnostic Kit) 0 mg IM STAT PRN; Protocol PRN Reason: Hypoglycemia Protocol Guaifenesin/Dextromethorphan (Robitussin Dm) 10 ml PO Q6 PRN PRN Reason: Cough Last Admin: 08/08/18 00:44 Dose: 10 ml Azithromycin 500 mg/ Sodium (Chloride) 250 mls @ 250 mls/hr IVPB DAILY [facility]; Protocol Last Admin: 08/07/18 08:55 Dose: 250 mls/hr Insulin Detemir (Levemir) [address] [facility] Last Admin: 08/07/18 21:40 Dose: 15 unit Insulin Human Lispro (Humalog) 0 units SC [facility]; Protocol Last Admin: 08/08/18 06:34 Dose: 6 units Insulin Human Regular (Humulin R) 0 units SC [facility] PRN; Protocol PRN Reason: accucheck coverage Last Admin: 08/04/18 08:00 Dose: 6 units Lactulose (Enulose) 20 gm PO TID [facility] Last Admin: 08/07/18 17:39 Dose: 20 gm Levothyroxine Sodium (Synthroid) 25 mcg PO DAILY@0630 [facility] Last Admin: 08/08/18 06:34 Dose: 25 mcg Losartan Potassium (Cozaar) 25 mg PO DAILY [facility] Last Admin: 08/07/18 08:50 Dose: 25 mg Metformin HCl (Glucophage) 500 mg PO BIDWM [facility] Last Admin: 08/07/18 17:41 Dose: 500 mg Methylprednisolone (Solu-Medrol) 40 mg IVP BID [facility] Last Admin: 08/07/18 17:41 Dose: 40 mg Rifaximin (Xifaxan) 550 mg PO BID [facility]; Protocol Last Admin: 08/07/18 17:39 Dose: 550 mg Sitagliptin Phosphate (Januvia) 100 mg PO DAILY [facility] Last Admin: 08/07/18 08:52 Dose: 100 mg Tiotropium [place] (Spiriva) 18 mcg INH DAILY [facility] Last Admin: 08/07/18 08:50 Dose: 18 mcg - Labs Labs: 08/04/18 02:05 08/06/18 13:37 - Constitutional Appears: Chronically Ill - Head Exam Head Exam: ATRAUMATIC, NORMAL INSPECTION, NORMOCEPHALIC - Eye Exam Eye Exam: EOMI, Normal appearance, PERRL Pupil Exam: NORMAL ACCOMODATION, PERRL - ENT Exam ENT Exam: Mucous Membranes Moist, Normal Exam - Neck Exam Neck Exam: Full ROM, Normal Inspection. absent: Lymphadenopathy - Respiratory Exam Respiratory Exam: Decreased Breath Sounds, Prolonged Expiratory Phase, Rales, Wheezes, NORMAL BREATHING PATTERN - Cardiovascular Exam Cardiovascular Exam: REGULAR RHYTHM, +S1, +S2. absent: Murmur - GI/Abdominal Exam GI & Abdominal Exam: Soft, Normal Bowel Sounds. absent: Tenderness - Rectal Exam Rectal Exam: NORMAL INSPECTION - Extremities Exam Extremities Exam: Full ROM, Normal Capillary Refill, Normal Inspection. absent: Joint Swelling, Pedal Edema - Back Exam Back Exam: NORMAL INSPECTION - Neurological Exam Neurological Exam: Alert, Awake, CN II-XII Intact, Normal Gait, Oriented x3 - Psychiatric Exam Psychiatric exam: Normal Affect, Normal Mood - Skin Skin Exam: Dry, Intact, Normal Color, Warm Assessment and Plan - Assessment and Plan (Free Text) Assessment: CHF ACUTE EXAC OF ASTHMA/COPD URI Plan: CONTINUE CURRENT RX AWAIT CXR
[2018-08-08] MEDS: Enoxaparin 30 mg Syringe SC SCH (09:08)
[2018-08-08] MEDS: MethylPREDNISolone 40 mg Vial IVP SCH ×2 (09:10→17:36)
[2018-08-08] MEDS: diltiaZEM 120 mg/24 Hours CD Cap PO SCH (09:13)
[2018-08-08] MEDS: Tiotropium 18 mcg Cap For Inhalation INH SCH (10:00)
[2018-08-08 10:55] LABS: HEMOGLOBIN 13.8 g/dL (12.0-16.0); MEAN CELL VOLUME 100.4 fl (81.0-99.0); MEAN CORPUSCULAR HEMOGLOBIN 32.2 pg (27.0-31.0); MEAN CORPUSCULAR HGB CONC 32.1 g/dL (33.0-37.0); RBC 4.28 Mil/uL (3.80-5.20); RED CELL DISTRIBUTION WIDTH 13.9 % (11.5-14.5); WHITE BLOOD COUNT 9.1 K/uL (4.8-10.8)
[2018-08-08 11:15] LABS: BLOOD UREA NITROGEN 52 mg/dl (7-17); CALCIUM 9.9 mg/dL (8.4-10.2); GFR NON-AFRICAN AMERICAN 60
--- NOTE | 2018-08-08 11:51 | RAD ---
Date of service: 08/08/2018 PROCEDURE: CHEST RADIOGRAPH, 1 VIEW HISTORY: CHF/PNEUMONIA COMPARISON: 08/04/2018. FINDINGS: LUNGS: The lungs are well inflated and clear. There is mild pulmonary venous congestion. There is subsegmental atelectasis in the left mid lung. PLEURA: Redemonstration of small right pleural effusion. No pneumothorax or left pleural effusion. CARDIOVASCULAR: There is mild cardiomegaly. There are aortic atherosclerotic calcifications present. There is stable position of right-sided permanent pacing device. OSSEOUS STRUCTURES: Within normal limits for the patient's age. VISUALIZED UPPER ABDOMEN: Normal. OTHER FINDINGS: None. IMPRESSION: Mild cardiomegaly and pulmonary venous congestion. Small right pleural effusion.
--- NOTE | 2018-08-08 13:52 | PQF ---
PROVIDER RESPONSE TEXT: DM with hyperglycemia REVIEWER QUERY TEXT: Diabetic Associated Manifestations Please specify any manifestations associated / due to diabetes Such as: -- DM with Hyperglycemia -- Diabetes with renal manifestation -- Diabetes with neurologic manifestation -- Diabetes with ophthalmic manifestation -- Diabetes with peripheral circulatory manifestation -- Other, please specify Random Glucose: 199 POCGlucose:[phone]->[phone]->304->[phone]->[phone]->[phone] ER: hx. includes Diabetes etc. Clinical Impression : CHF, HCAP 08/05 Attending progress note: Still with elevated BP -Noted elevated FBS --januvia, metformin, insulin The patient's Clinical Indicators include: -- Query created by: Rosa Mejia on 08/06/2018 1:43 PM Electronically signed by: Stevie Jenkins MD 08/08/2018 1:49 PM
[2018-08-08] MEDS: Azithromycin 500 MG in Sodium Chloride 0.9% 250 ML IVPB SCH (14:23)
[2018-08-08] MEDS: Albuterol-Ipratrop 3 mg / 0.5 (3 ml) UD INH PRN (17:00)
--- NOTE | 2018-08-08 18:54 | PCM.RRT ---
[employer] [employer] [facility] Nurse Assessment - Situation Location: 4 N Room Number: 402-2 [facility] Reason for Call: O2 Saturation below 90% - IV IV Inserted during [facility] [employer]?: No - Respiratory Oxygen Delivery Method: Nasal Cannula Was the Patient Ventilated with Bag/Mask 100% O2?: No Secretions Suctioned?: No Was the Patient Intubated?: No Was the Patient Placed on a Ventilator?: No - Ventilator Settings Ventilator Respiratory Rate Settin Ventilator Tidal Volume Settin - Medication Medications Administered During [facility] [employer] [facility]: Placed on Venty mask.Solumedrol 40 mg IVP given as per schedule meds - Diagnostic Test Ordered EKG: No Chest X-Ray: No CT Scan: No CPR started during [facility] [employer]?: No - Vital Signs Vital Signs: Rapid Response Vital Sign Blood Pressure 185/94 Pulse Rate 116 Respiratory Rate 26 Temperature 25 F Oxygen Saturation 86 - Time [employer] [employer] [facility] Ended Time [facility] Ended: 17:45 - Vital Signs at end of [employer] [employer] [facility] Vital Signs at end of [facility] [employer]: Rapid Response End Vital Sign Blood Pressure 163/84 Pulse Rate 117 Respiratory Rate 23 Temperature 98.1 F O2 Sat by Pulse Oximetry 99 - Recommendations [facility] Level of Care Recommendations: Remain in current setting I.Reason for [facility] [employer] - A) Acute Change in Patient: Subjective: [facility] [employer] Called @ 5:20 pm [facility] arrival time: 5:22 pm [facility] Reason: Nurse concerned about patient due to SPO2 <90% Vitals at arrival: BP 185/94 HR 123 T = 98.1F SPO2 97% on 35% ventimask Nurse called [facility] [employer] for 82-year-old woman admitted for COPD and CHF for saturation <90% on 3L O2 NC - nurse switched her to 35% ventimask when she began saturating 98%. Nurse admits that patient has been agitated all day. Upon arrival for [facility] [employer] patient reported feeling better, more calm, and her saturation was >97%. Hydralazine 10mg IVP given. Plan to leave patient on ventimask (decreased to 30%, continued to saturate 98%) and reasses overnight once she was feeling less anxious. Vitals stabilized to within patient's normal limit. BUN is in 50's and therefore Lasix was not appropriate, 40mg IV BID changed to 40mg IV daily today by PMD (last does 9am). All labs and imaging reviewed during [facility] for appropriate medical management. Vitals at end of [facility] [employer]: BP 163/84 HR 108 T = 98.1F SPO2 98% on 30% ventimask [facility] end: 5:32 pm [facility] team: Dr Flores, Dr Harrison, Dr Katz, Dr Mccormick, Dr Jiménez
[2018-08-08] MEDS: Insulin Detemir 100 Units/ml Inj SC SCH (22:00)
[2018-08-09] MEDS: Albuterol-Ipratrop 3 mg / 0.5 (3 ml) UD INH SCH ×4 (02:17→19:00)
--- NOTE | 2018-08-09 08:29 | CP.PCM.PN ---
Subjective - Date & Time of Evaluation Date of Evaluation: 08/09/18 Time of Evaluation: 08:29 - Subjective Subjective: EVENTS OF YESTERDAY NOTED STILL DYSPNEIC ON MILD EXERTION NO CHEST PAINS Objective - Vital Signs/Intake and Output Vital Signs (last 24 hours): Temp Pulse Resp BP Pulse Ox 98.1 F 102 H 18 157/88 H 99 08/09/18 04:23 08/09/18 04:23 08/09/18 04:23 08/09/18 04:23 08/09/18 04:23 Intake and Output: 08/09/18 08/09/18 06:59 18:59 Intake Total 890 Balance 890 - Medications Medications: Current Medications Albuterol/Ipratropium (Duoneb 3 Mg/0.5 Mg (3 Ml) Ud) 3 ml INH RQ6 [facility] Last Admin: 08/09/18 07:36 Dose: 3 ml Albuterol/Ipratropium (Duoneb 3 Mg/0.5 Mg (3 Ml) Ud) 3 ml INH RQ4 PRN PRN Reason: Shortness of Breath Last Admin: 08/08/18 17:00 Dose: 3 ml Anastrozole (Arimidex 1 Mg Tab) 1 mg PO DAILY [facility] Last Admin: 08/08/18 09:13 Dose: 1 mg Benzocaine/Menthol (Cepacol Sore Throat) 1 malu PO Q2 PRN PRN Reason: Sore Throat Last Admin: 08/07/18 21:45 Dose: 1 malu Calcium Acetate (Phoslo) 667 mg PO DAILY [facility] Last Admin: 08/08/18 09:08 Dose: 667 mg Dextrose (Dextrose 50% Inj) 0 ml IV STAT PRN; Protocol PRN Reason: Hypoglycemia Protocol Dextrose (Glutose 15) 0 gm PO ONCE PRN; Protocol PRN Reason: Hypoglycemia Protocol Diltiazem HCl (Cardizem Cd) 120 mg PO DAILY [facility] Last Admin: 08/08/18 09:13 Dose: 120 mg Ergocalciferol (Drisdol 50,000 Intl Units Cap) 1 cap PO QWK [facility] Escitalopram Oxalate (Lexapro) 20 mg PO DAILY [facility] Last Admin: 08/08/18 09:08 Dose: 20 mg Furosemide (Lasix) 40 mg IVP DAILY [facility] Glucagon (Glucagen Diagnostic Kit) 0 mg IM STAT PRN; Protocol PRN Reason: Hypoglycemia Protocol Guaifenesin/Dextromethorphan (Robitussin Dm) 10 ml PO Q6 PRN PRN Reason: Cough Last Admin: 08/08/18 00:44 Dose: 10 ml Azithromycin 500 mg/ Sodium (Chloride) 250 mls @ 250 mls/hr IVPB DAILY [facility]; Protocol Last Admin: 08/08/18 14:23 Dose: 250 mls/hr Insulin Detemir (Levemir) 15 units SC HS [facility] Last Admin: 08/08/18 22:00 Dose: 15 unit Insulin Human Lispro (Humalog) 10 units SC [facility] Last Admin: 08/08/18 17:37 Dose: 10 units Lactulose (Enulose) 20 gm PO TID [facility] Last Admin: 08/08/18 17:43 Dose: Not Given Levothyroxine Sodium (Synthroid) 25 mcg PO DAILY@0630 [facility] Last Admin: 08/08/18 06:34 Dose: 25 mcg Losartan Potassium (Cozaar) 25 mg PO DAILY [facility] Last Admin: 08/08/18 09:11 Dose: 25 mg Metformin HCl (Glucophage) 500 mg PO BIDWM [facility] Last Admin: 08/08/18 17:38 Dose: Not Given Methylprednisolone (Solu-Medrol) 40 mg IVP BID [facility] Last Admin: 08/08/18 17:36 Dose: 40 mg Rifaximin (Xifaxan) 550 mg PO BID [facility]; Protocol Last Admin: 08/08/18 17:52 Dose: Not Given Sitagliptin Phosphate (Januvia) 100 mg PO DAILY [facility] Last Admin: 08/08/18 09:10 Dose: 100 mg Tiotropium [place] (Spiriva) 18 mcg INH DAILY [facility] Last Admin: 08/08/18 10:00 Dose: 18 mcg - Labs Labs: 08/08/18 10:20 08/08/18 10:20 - Constitutional Appears: Chronically Ill - Head Exam Head Exam: ATRAUMATIC, NORMAL INSPECTION, NORMOCEPHALIC - Eye Exam Eye Exam: EOMI, Normal appearance, PERRL Pupil Exam: NORMAL ACCOMODATION, PERRL - ENT Exam ENT Exam: Mucous Membranes Moist, Normal Exam - Neck Exam Neck Exam: Full ROM, Normal Inspection. absent: Lymphadenopathy - Respiratory Exam Respiratory Exam: Decreased Breath Sounds, Rales, Wheezes, NORMAL BREATHING PATTERN Additional comments: O2 SAT--99% ON VMASK - Cardiovascular Exam Cardiovascular Exam: REGULAR RHYTHM, +S1, +S2. absent: Murmur - GI/Abdominal Exam GI & Abdominal Exam: Soft, Normal Bowel Sounds. absent: Tenderness - Rectal Exam Rectal Exam: NORMAL INSPECTION - Extremities Exam Extremities Exam: Full ROM, Normal Capillary Refill, Normal Inspection. absent: Joint Swelling, Pedal Edema - Back Exam Back Exam: NORMAL INSPECTION - Neurological Exam Neurological Exam: Alert, Awake, CN II-XII Intact, Normal Gait, Oriented x3 - Psychiatric Exam Psychiatric exam: Normal Affect, Normal Mood - Skin Skin Exam: Dry, Intact, Normal Color, Warm Assessment and Plan - Assessment and Plan (Free Text) Assessment: CHF ACUTE EXAC OF ASTHMA/COPD R/O SUPERIMPOSED PNEUMONIA Plan: CONTINUE CURRENT RX SERIAL CXRS
[2018-08-09] MEDS: diltiaZEM 120 mg/24 Hours CD Cap PO SCH (08:52)
[2018-08-09] MEDS: Insulin Lispro (humaLOG) 100 Units/ml Inj SC SCH ×3 (08:54→17:54)
[2018-08-09] MEDS: Tiotropium 18 mcg Cap For Inhalation INH SCH (09:02)
[2018-08-09] MEDS: MethylPREDNISolone 40 mg Vial IVP SCH ×2 (09:02→17:54)
[2018-08-09] MEDS: guaiFENesin DM 200 mg-20 mg/10 ml UD PO PRN (09:02)
[2018-08-09] MEDS: Levothyroxine 25 MCG TAB PO SCH (09:02)
[2018-08-09] MEDS: Azithromycin 500 MG in Sodium Chloride 0.9% 250 ML IVPB SCH (09:05)
--- NOTE | 2018-08-09 09:11 | IP.NPCORE ---
Heart Failure Core Measure - Heart Failure Ejection Fraction: 40 % or Greater JOSE Inhibitor Prescribed: No Contraindication/Reason for not providing: on arb Beta-Ruy Prescribed: None Contraindication/Reason for not providing: asthma copd cough Angiotensin II Receptor Ruy Prescribed: Yes AnticoagulationTherapy for Atrial Fibrillation/Atrialflutter: No Contraindication/Reason for not providing: GI bleeding in the past - Follow up Will be discharged to: Home Follow Up Date (must be within 7 days from discharge): 08/16/18
[2018-08-09] MEDS: Albuterol-Ipratrop 3 mg / 0.5 (3 ml) UD INH PRN ×2 (11:29→17:34)
--- NOTE | 2018-08-09 16:36 | CP.PCM.PN ---
Subjective - Date & Time of Evaluation Date of Evaluation: 08/09/18 Time of Evaluation: 15:00 - Subjective Subjective: patient has no current chest pain. was dyspneic yesterday. Objective - Vital Signs/Intake and Output Vital Signs (last 24 hours): Temp Pulse Resp BP Pulse Ox 98.5 F 98 H 16 153/71 H 93 L 08/09/18 16:07 08/09/18 16:07 08/09/18 16:07 08/09/18 16:07 08/09/18 16:07 Intake and Output: 08/09/18 08/09/18 06:59 18:59 Intake Total 890 Balance 890 - Medications Medications: Current Medications Albuterol/Ipratropium (Duoneb 3 Mg/0.5 Mg (3 Ml) Ud) 3 ml INH RQ6 [facility] Last Admin: 08/09/18 14:42 Dose: 3 ml Albuterol/Ipratropium (Duoneb 3 Mg/0.5 Mg (3 Ml) Ud) 3 ml INH RQ4 PRN PRN Reason: Shortness of Breath Last Admin: 08/09/18 11:29 Dose: 3 ml Anastrozole (Arimidex 1 Mg Tab) 1 mg PO DAILY [facility] Last Admin: 08/09/18 09:07 Dose: 1 mg Benzocaine/Menthol (Cepacol Sore Throat) 1 malu PO Q2 PRN PRN Reason: Sore Throat Last Admin: 08/07/18 21:45 Dose: 1 malu Calcium Acetate (Phoslo) 667 mg PO DAILY [facility] Last Admin: 08/09/18 09:01 Dose: 667 mg Dextrose (Dextrose 50% Inj) 0 ml IV STAT PRN; Protocol PRN Reason: Hypoglycemia Protocol Dextrose (Glutose 15) 0 gm PO ONCE PRN; Protocol PRN Reason: Hypoglycemia Protocol Diltiazem HCl (Cardizem Cd) 120 mg PO DAILY [facility] Last Admin: 08/09/18 08:52 Dose: 120 mg Ergocalciferol (Drisdol 50,000 Intl Units Cap) 1 cap PO QWK [facility] Escitalopram Oxalate (Lexapro) 20 mg PO DAILY [facility] Last Admin: 08/09/18 09:01 Dose: 20 mg Furosemide (Lasix) 40 mg IVP DAILY [facility] Last Admin: 08/09/18 09:00 Dose: 40 mg Glucagon (Glucagen Diagnostic Kit) 0 mg IM STAT PRN; Protocol PRN Reason: Hypoglycemia Protocol Guaifenesin/Dextromethorphan (Robitussin Dm) 10 ml PO Q6 PRN PRN Reason: Cough Last Admin: 08/09/18 09:02 Dose: 10 ml Azithromycin 500 mg/ Sodium (Chloride) 250 mls @ 250 mls/hr IVPB DAILY [facility]; Protocol Last Admin: 08/09/18 09:05 Dose: 250 mls/hr Insulin Detemir (Levemir) 15 units SC HS [facility] Last Admin: 08/08/18 22:00 Dose: 15 unit Insulin Human Lispro (Humalog) 10 units SC TIDAC [facility] Last Admin: 08/09/18 14:28 Dose: 10 units Lactulose (Enulose) 20 gm PO TID [facility] Last Admin: 08/09/18 14:29 Dose: 20 gm Levothyroxine Sodium (Synthroid) 25 mcg PO DAILY@0630 [facility] Last Admin: 08/09/18 09:02 Dose: 25 mcg Metformin HCl (Glucophage) 500 mg PO BIDWM [facility] Last Admin: 08/09/18 08:53 Dose: 500 mg Methylprednisolone (Solu-Medrol) 40 mg IVP BID [facility] Last Admin: 08/09/18 09:02 Dose: 40 mg Rifaximin (Xifaxan) 550 mg PO BID [facility]; Protocol Last Admin: 08/09/18 09:03 Dose: 550 mg Sitagliptin Phosphate (Januvia) 100 mg PO DAILY [facility] Last Admin: 08/09/18 08:59 Dose: 100 mg Tiotropium [place] (Spiriva) 18 mcg INH DAILY [facility] Last Admin: 08/09/18 09:02 Dose: 18 mcg - Labs Labs: 08/08/18 10:20 08/08/18 10:20 - Constitutional Appears: Non-toxic, Chronically Ill - Head Exam Head Exam: NORMAL INSPECTION - Eye Exam Eye Exam: Normal appearance - ENT Exam ENT Exam: Mucous Membranes Moist - Neck Exam Neck Exam: Full ROM - Respiratory Exam Respiratory Exam: NORMAL BREATHING PATTERN - Cardiovascular Exam Cardiovascular Exam: REGULAR RHYTHM - GI/Abdominal Exam GI & Abdominal Exam: Normal Bowel Sounds - Rectal Exam Rectal Exam: Deferred - Extremities Exam Extremities Exam: absent: Pedal Edema - Back Exam Back Exam: NORMAL INSPECTION - Neurological Exam Neurological Exam: Alert - Psychiatric Exam Psychiatric exam: Normal Affect - Skin Skin Exam: Normal Color Assessment and Plan (1) Acute diastolic heart failure due to valvular disease Assessment & Plan: will need improved blood pressure contrl and afterload reduction. increase Losartan Status: Acute (2) Atrial fibrillation Assessment & Plan: continue cardizem. not ideal candidate for anticoagulation Status: Acute (3) HTN (hypertension) Assessment & Plan: increase Losartan Status: Chronic (4) Mitral valve regurgitation Assessment & Plan: not a surgical candidate Status: Chronic
[2018-08-09] MEDS ORDERED: Albuterol-Ipratrop 3 mg / 0.5 (3 ml) UD INH STA (18:27)
[2018-08-09 22:26] LABS: ABG ALLEN TEST YES; ARTERIAL BLOOD GAS HCO3 32.7 mmol/L (21-28); ARTERIAL BLOOD GAS HEMOGLOBIN 15.3 g/dL (11.7-17.4); ARTERIAL BLOOD GAS O2 CAPACITY 20.7 mL/dL (16-24); ARTERIAL BLOOD GAS O2 CONTENT 20.6 ML/dL (15-23); ARTERIAL BLOOD GAS O2 SAT 99.6 % (95-98); ARTERIAL BLOOD GAS PCO2 52 mm/Hg (35-45); ARTERIAL BLOOD GAS PH 7.45 (7.35-7.45); ARTERIAL BLOOD GAS PO2 96 mm/Hg (80-100); ARTERIAL BLOOD GAS TCO2 37.7 mmol/L (22-28)
[2018-08-09] MEDS: Insulin Detemir 100 Units/ml Inj SC SCH (22:36)
[2018-08-10] MEDS: Albuterol-Ipratrop 3 mg / 0.5 (3 ml) UD INH SCH ×4 (01:06→19:02)
--- NOTE | 2018-08-10 08:13 | CP.PCM.PN ---
Subjective - Date & Time of Evaluation Date of Evaluation: 08/06/18 Time of Evaluation: 13:00 - Subjective Subjective: Patient continues to have SOB Noted improvement of pleural effusion Noted rising BUN. Noted decrease in leg edema FBS is elevated Objective - Vital Signs/Intake and Output Vital Signs (last 24 hours): Temp Pulse Resp BP Pulse Ox 98.3 F 104 H 20 143/79 98 08/10/18 05:00 08/10/18 08:00 08/10/18 05:00 08/10/18 05:00 08/10/18 05:00 - Medications Medications: Current Medications Albuterol/Ipratropium (Duoneb 3 Mg/0.5 Mg (3 Ml) Ud) 3 ml INH RQ6 [facility] Last Admin: 08/10/18 07:59 Dose: 3 ml Albuterol/Ipratropium (Duoneb 3 Mg/0.5 Mg (3 Ml) Ud) 3 ml INH RQ4 PRN PRN Reason: Shortness of Breath Last Admin: 08/09/18 17:34 Dose: 3 ml Anastrozole (Arimidex 1 Mg Tab) 1 mg PO DAILY [facility] Last Admin: 08/09/18 09:07 Dose: 1 mg Benzocaine/Menthol (Cepacol Sore Throat) 1 malu PO Q2 PRN PRN Reason: Sore Throat Last Admin: 08/07/18 21:45 Dose: 1 malu Calcium Acetate (Phoslo) 667 mg PO DAILY [facility] Last Admin: 08/09/18 09:01 Dose: 667 mg Dextrose (Dextrose 50% Inj) 0 ml IV STAT PRN; Protocol PRN Reason: Hypoglycemia Protocol Dextrose (Glutose 15) 0 gm PO ONCE PRN; Protocol PRN Reason: Hypoglycemia Protocol Diltiazem HCl (Cardizem Cd) 120 mg PO DAILY [facility] Last Admin: 08/09/18 08:52 Dose: 120 mg Ergocalciferol (Drisdol 50,000 Intl Units Cap) 1 cap PO QWK [facility] Escitalopram Oxalate (Lexapro) 20 mg PO DAILY [facility] Last Admin: 08/09/18 09:01 Dose: 20 mg Furosemide (Lasix) 40 mg IVP DAILY [facility] Last Admin: 08/09/18 09:00 Dose: 40 mg Glucagon (Glucagen Diagnostic Kit) 0 mg IM STAT PRN; Protocol PRN Reason: Hypoglycemia Protocol Guaifenesin/Dextromethorphan (Robitussin Dm) 10 ml PO Q6 PRN PRN Reason: Cough Last Admin: 08/09/18 09:02 Dose: 10 ml Azithromycin 500 mg/ Sodium (Chloride) 250 mls @ 250 mls/hr IVPB DAILY [facility]; Protocol Last Admin: 08/09/18 09:05 Dose: 250 mls/hr Insulin Detemir (Levemir) 15 units SC HS [facility] Last Admin: 08/09/18 22:36 Dose: 15 unit Insulin Human Lispro (Humalog) 10 units SC TIDAC [facility] Last Admin: 08/09/18 17:54 Dose: 10 units Lactulose (Enulose) 20 gm PO TID [facility] Last Admin: 08/09/18 17:51 Dose: 20 gm Levothyroxine Sodium (Synthroid) 25 mcg PO DAILY@0630 [facility] Last Admin: 08/09/18 09:02 Dose: 25 mcg Losartan Potassium (Cozaar) 50 mg PO DAILY [facility] Last Admin: 08/09/18 17:52 Dose: 50 mg Metformin HCl (Glucophage) 500 mg PO BIDWM [facility] Last Admin: 08/09/18 17:53 Dose: 500 mg Methylprednisolone (Solu-Medrol) 40 mg IVP BID [facility] Last Admin: 08/09/18 17:54 Dose: 40 mg Rifaximin (Xifaxan) 550 mg PO BID [facility]; Protocol Last Admin: 08/09/18 17:56 Dose: 550 mg Sitagliptin Phosphate (Januvia) 100 mg PO DAILY [facility] Last Admin: 08/09/18 08:59 Dose: 100 mg Tiotropium [place] (Spiriva) 18 mcg INH DAILY [facility] Last Admin: 08/09/18 09:02 Dose: 18 mcg - Labs Labs: 08/08/18 10:20 08/08/18 10:20 - Head Exam Head Exam: NORMAL INSPECTION - Eye Exam Eye Exam: Normal appearance - ENT Exam ENT Exam: Mucous Membranes Moist - Respiratory Exam Respiratory Exam: Decreased Breath Sounds - Cardiovascular Exam Cardiovascular Exam: Irregular Rhythm - GI/Abdominal Exam GI & Abdominal Exam: Normal Bowel Sounds - Neurological Exam Neurological Exam: Awake - Psychiatric Exam Psychiatric exam: Anxious Assessment and Plan (1) CHF (congestive heart failure) Status: Acute (2) Pleural effusion Status: Acute (3) Atrial fibrillation Status: Acute (4) Severe mitral insufficiency Status: Acute (5) Afib Status: Chronic (6) DM2 (diabetes mellitus, type 2) Status: Chronic (7) HTN (hypertension) Status: Chronic (8) Pulmonary hypertension Status: Chronic - Assessment and Plan (Free Text) Plan: Cont meds Cont tx Cont PT cont cautious diuresis
--- NOTE | 2018-08-10 08:18 | CP.PCM.PN ---
Subjective - Date & Time of Evaluation Date of Evaluation: 08/07/18 Time of Evaluation: 16:00 - Subjective Subjective: Patient is very anxious On Lasix 40 mg daily Noted significant decrease in leg edema Has no fever Has slight labored breathing Pulse ox is more than 92 Objective - Vital Signs/Intake and Output Vital Signs (last 24 hours): Temp Pulse Resp BP Pulse Ox 98.3 F 104 H 20 143/79 98 08/10/18 05:00 08/10/18 08:00 08/10/18 05:00 08/10/18 05:00 08/10/18 05:00 - Medications Medications: Current Medications Albuterol/Ipratropium (Duoneb 3 Mg/0.5 Mg (3 Ml) Ud) 3 ml INH RQ6 [facility] Last Admin: 08/10/18 07:59 Dose: 3 ml Albuterol/Ipratropium (Duoneb 3 Mg/0.5 Mg (3 Ml) Ud) 3 ml INH RQ4 PRN PRN Reason: Shortness of Breath Last Admin: 08/09/18 17:34 Dose: 3 ml Anastrozole (Arimidex 1 Mg Tab) 1 mg PO DAILY [facility] Last Admin: 08/09/18 09:07 Dose: 1 mg Benzocaine/Menthol (Cepacol Sore Throat) 1 malu PO Q2 PRN PRN Reason: Sore Throat Last Admin: 08/07/18 21:45 Dose: 1 malu Calcium Acetate (Phoslo) 667 mg PO DAILY [facility] Last Admin: 08/09/18 09:01 Dose: 667 mg Dextrose (Dextrose 50% Inj) 0 ml IV STAT PRN; Protocol PRN Reason: Hypoglycemia Protocol Dextrose (Glutose 15) 0 gm PO ONCE PRN; Protocol PRN Reason: Hypoglycemia Protocol Diltiazem HCl (Cardizem Cd) 120 mg PO DAILY [facility] Last Admin: 08/09/18 08:52 Dose: 120 mg Ergocalciferol (Drisdol 50,000 Intl Units Cap) 1 cap PO QWK [facility] Escitalopram Oxalate (Lexapro) 20 mg PO DAILY [facility] Last Admin: 08/09/18 09:01 Dose: 20 mg Furosemide (Lasix) 40 mg IVP DAILY [facility] Last Admin: 08/09/18 09:00 Dose: 40 mg Glucagon (Glucagen Diagnostic Kit) 0 mg IM STAT PRN; Protocol PRN Reason: Hypoglycemia Protocol Guaifenesin/Dextromethorphan (Robitussin Dm) 10 ml PO Q6 PRN PRN Reason: Cough Last Admin: 08/09/18 09:02 Dose: 10 ml Azithromycin 500 mg/ Sodium (Chloride) 250 mls @ 250 mls/hr IVPB DAILY [facility]; Protocol Last Admin: 08/09/18 09:05 Dose: 250 mls/hr Insulin Detemir (Levemir) 15 units SC HS [facility] Last Admin: 08/09/18 22:36 Dose: 15 unit Insulin Human Lispro (Humalog) 10 units SC TIDAC [facility] Last Admin: 08/09/18 17:54 Dose: 10 units Lactulose (Enulose) 20 gm PO TID [facility] Last Admin: 08/09/18 17:51 Dose: 20 gm Levothyroxine Sodium (Synthroid) 25 mcg PO DAILY@0630 [facility] Last Admin: 08/09/18 09:02 Dose: 25 mcg Losartan Potassium (Cozaar) 50 mg PO DAILY [facility] Last Admin: 08/09/18 17:52 Dose: 50 mg Metformin HCl (Glucophage) 500 mg PO BIDWM [facility] Last Admin: 08/09/18 17:53 Dose: 500 mg Methylprednisolone (Solu-Medrol) 40 mg IVP BID [facility] Last Admin: 08/09/18 17:54 Dose: 40 mg Rifaximin (Xifaxan) 550 mg PO BID [facility]; Protocol Last Admin: 08/09/18 17:56 Dose: 550 mg Sitagliptin Phosphate (Januvia) 100 mg PO DAILY [facility] Last Admin: 08/09/18 08:59 Dose: 100 mg Tiotropium [place] (Spiriva) 18 mcg INH DAILY [facility] Last Admin: 08/09/18 09:02 Dose: 18 mcg - Labs Labs: 08/08/18 10:20 08/08/18 10:20 - Head Exam Head Exam: NORMAL INSPECTION - ENT Exam ENT Exam: Mucous Membranes Moist - Respiratory Exam Respiratory Exam: Decreased Breath Sounds - Cardiovascular Exam Cardiovascular Exam: Irregular Rhythm - GI/Abdominal Exam GI & Abdominal Exam: Soft, Normal Bowel Sounds - Neurological Exam Neurological Exam: Altered - Psychiatric Exam Psychiatric exam: Normal Mood Assessment and Plan (1) CHF (congestive heart failure) Status: Acute (2) Pleural effusion Status: Acute (3) Atrial fibrillation Status: Acute (4) Severe mitral insufficiency Status: Acute (5) Afib Status: Chronic (6) DM2 (diabetes mellitus, type 2) Status: Chronic (7) HTN (hypertension) Status: Chronic (8) Pulmonary hypertension Status: Chronic - Assessment and Plan (Free Text) Plan: Cont meds Cont tx Cont diuresis check labs telemetry
--- NOTE | 2018-08-10 08:21 | CP.PCM.PN ---
Subjective - Date & Time of Evaluation Date of Evaluation: 08/08/18 Time of Evaluation: 11:00 - Subjective Subjective: Patient claims to be doing a lot better. CXR showed decrease in pleural effusion Still with pulm congestion on CXR Objective - Vital Signs/Intake and Output Vital Signs (last 24 hours): Temp Pulse Resp BP Pulse Ox 98.3 F 104 H 20 143/79 98 08/10/18 05:00 08/10/18 08:00 08/10/18 05:00 08/10/18 05:00 08/10/18 05:00 - Medications Medications: Current Medications Albuterol/Ipratropium (Duoneb 3 Mg/0.5 Mg (3 Ml) Ud) 3 ml INH RQ6 [facility] Last Admin: 08/10/18 07:59 Dose: 3 ml Albuterol/Ipratropium (Duoneb 3 Mg/0.5 Mg (3 Ml) Ud) 3 ml INH RQ4 PRN PRN Reason: Shortness of Breath Last Admin: 08/09/18 17:34 Dose: 3 ml Anastrozole (Arimidex 1 Mg Tab) 1 mg PO DAILY [facility] Last Admin: 08/09/18 09:07 Dose: 1 mg Benzocaine/Menthol (Cepacol Sore Throat) 1 malu PO Q2 PRN PRN Reason: Sore Throat Last Admin: 08/07/18 21:45 Dose: 1 malu Calcium Acetate (Phoslo) 667 mg PO DAILY [facility] Last Admin: 08/09/18 09:01 Dose: 667 mg Dextrose (Dextrose 50% Inj) 0 ml IV STAT PRN; Protocol PRN Reason: Hypoglycemia Protocol Dextrose (Glutose 15) 0 gm PO ONCE PRN; Protocol PRN Reason: Hypoglycemia Protocol Diltiazem HCl (Cardizem Cd) 120 mg PO DAILY [facility] Last Admin: 08/09/18 08:52 Dose: 120 mg Ergocalciferol (Drisdol 50,000 Intl Units Cap) 1 cap PO QWK [facility] Escitalopram Oxalate (Lexapro) 20 mg PO DAILY [facility] Last Admin: 08/09/18 09:01 Dose: 20 mg Furosemide (Lasix) 40 mg IVP DAILY [facility] Last Admin: 08/09/18 09:00 Dose: 40 mg Glucagon (Glucagen Diagnostic Kit) 0 mg IM STAT PRN; Protocol PRN Reason: Hypoglycemia Protocol Guaifenesin/Dextromethorphan (Robitussin Dm) 10 ml PO Q6 PRN PRN Reason: Cough Last Admin: 08/09/18 09:02 Dose: 10 ml Azithromycin 500 mg/ Sodium (Chloride) 250 mls @ 250 mls/hr IVPB DAILY [facility]; Protocol Last Admin: 08/09/18 09:05 Dose: 250 mls/hr Insulin Detemir (Levemir) 15 units SC HS [facility] Last Admin: 08/09/18 22:36 Dose: 15 unit Insulin Human Lispro (Humalog) 10 units SC TIDAC [facility] Last Admin: 08/09/18 17:54 Dose: 10 units Lactulose (Enulose) 20 gm PO TID [facility] Last Admin: 08/09/18 17:51 Dose: 20 gm Levothyroxine Sodium (Synthroid) 25 mcg PO DAILY@0630 [facility] Last Admin: 08/09/18 09:02 Dose: 25 mcg Losartan Potassium (Cozaar) 50 mg PO DAILY [facility] Last Admin: 08/09/18 17:52 Dose: 50 mg Metformin HCl (Glucophage) 500 mg PO BIDWM [facility] Last Admin: 08/09/18 17:53 Dose: 500 mg Methylprednisolone (Solu-Medrol) 40 mg IVP BID [facility] Last Admin: 08/09/18 17:54 Dose: 40 mg Rifaximin (Xifaxan) 550 mg PO BID [facility]; Protocol Last Admin: 08/09/18 17:56 Dose: 550 mg Sitagliptin Phosphate (Januvia) 100 mg PO DAILY [facility] Last Admin: 08/09/18 08:59 Dose: 100 mg Tiotropium [place] (Spiriva) 18 mcg INH DAILY [facility] Last Admin: 08/09/18 09:02 Dose: 18 mcg - Labs Labs: 08/08/18 10:20 08/08/18 10:20 - Head Exam Head Exam: NORMAL INSPECTION - Eye Exam Eye Exam: Normal appearance - ENT Exam ENT Exam: Mucous Membranes Moist - Respiratory Exam Respiratory Exam: Decreased Breath Sounds - Cardiovascular Exam Cardiovascular Exam: Irregular Rhythm - Neurological Exam Neurological Exam: Awake - Psychiatric Exam Psychiatric exam: Anxious Assessment and Plan (1) CHF (congestive heart failure) Status: Acute (2) Pleural effusion Status: Acute (3) Atrial fibrillation Status: Acute (4) Severe mitral insufficiency Status: Acute (5) Afib Status: Chronic (6) DM2 (diabetes mellitus, type 2) Status: Chronic (7) HTN (hypertension) Status: Chronic (8) Pulmonary hypertension Status: Chronic - Assessment and Plan (Free Text) Plan: Cont meds Cont diuresis subacute rehab eval
--- NOTE | 2018-08-10 08:23 | CP.PCM.PN ---
Subjective - Date & Time of Evaluation Date of Evaluation: 08/09/18 Time of Evaluation: 11:00 - Subjective Subjective: Patient has no SOB Had [employer] yesterday but noted improvement of CXR findings Has no fever Stays in bed mostly Objective - Vital Signs/Intake and Output Vital Signs (last 24 hours): Temp Pulse Resp BP Pulse Ox 98.3 F 104 H 20 143/79 98 08/10/18 05:00 08/10/18 08:00 08/10/18 05:00 08/10/18 05:00 08/10/18 05:00 - Medications Medications: Current Medications Albuterol/Ipratropium (Duoneb 3 Mg/0.5 Mg (3 Ml) Ud) 3 ml INH RQ6 [facility] Last Admin: 08/10/18 07:59 Dose: 3 ml Albuterol/Ipratropium (Duoneb 3 Mg/0.5 Mg (3 Ml) Ud) 3 ml INH RQ4 PRN PRN Reason: Shortness of Breath Last Admin: 08/09/18 17:34 Dose: 3 ml Anastrozole (Arimidex 1 Mg Tab) 1 mg PO DAILY [facility] Last Admin: 08/09/18 09:07 Dose: 1 mg Benzocaine/Menthol (Cepacol Sore Throat) 1 malu PO Q2 PRN PRN Reason: Sore Throat Last Admin: 08/07/18 21:45 Dose: 1 malu Calcium Acetate (Phoslo) 667 mg PO DAILY [facility] Last Admin: 08/09/18 09:01 Dose: 667 mg Dextrose (Dextrose 50% Inj) 0 ml IV STAT PRN; Protocol PRN Reason: Hypoglycemia Protocol Dextrose (Glutose 15) 0 gm PO ONCE PRN; Protocol PRN Reason: Hypoglycemia Protocol Diltiazem HCl (Cardizem Cd) 120 mg PO DAILY [facility] Last Admin: 08/09/18 08:52 Dose: 120 mg Ergocalciferol (Drisdol 50,000 Intl Units Cap) 1 cap PO QWK [facility] Escitalopram Oxalate (Lexapro) 20 mg PO DAILY [facility] Last Admin: 08/09/18 09:01 Dose: 20 mg Furosemide (Lasix) 40 mg IVP DAILY [facility] Last Admin: 08/09/18 09:00 Dose: 40 mg Glucagon (Glucagen Diagnostic Kit) 0 mg IM STAT PRN; Protocol PRN Reason: Hypoglycemia Protocol Guaifenesin/Dextromethorphan (Robitussin Dm) 10 ml PO Q6 PRN PRN Reason: Cough Last Admin: 08/09/18 09:02 Dose: 10 ml Azithromycin 500 mg/ Sodium (Chloride) 250 mls @ 250 mls/hr IVPB DAILY [facility]; Protocol Last Admin: 08/09/18 09:05 Dose: 250 mls/hr Insulin Detemir (Levemir) 15 units SC HS [facility] Last Admin: 08/09/18 22:36 Dose: 15 unit Insulin Human Lispro (Humalog) 10 units SC TIDAC [facility] Last Admin: 08/09/18 17:54 Dose: 10 units Lactulose (Enulose) 20 gm PO TID [facility] Last Admin: 08/09/18 17:51 Dose: 20 gm Levothyroxine Sodium (Synthroid) 25 mcg PO DAILY@0630 [facility] Last Admin: 08/09/18 09:02 Dose: 25 mcg Losartan Potassium (Cozaar) 50 mg PO DAILY [facility] Last Admin: 08/09/18 17:52 Dose: 50 mg Metformin HCl (Glucophage) 500 mg PO BIDWM [facility] Last Admin: 08/09/18 17:53 Dose: 500 mg Methylprednisolone (Solu-Medrol) 40 mg IVP BID [facility] Last Admin: 08/09/18 17:54 Dose: 40 mg Rifaximin (Xifaxan) 550 mg PO BID [facility]; Protocol Last Admin: 08/09/18 17:56 Dose: 550 mg Sitagliptin Phosphate (Januvia) 100 mg PO DAILY [facility] Last Admin: 08/09/18 08:59 Dose: 100 mg Tiotropium [place] (Spiriva) 18 mcg INH DAILY [facility] Last Admin: 08/09/18 09:02 Dose: 18 mcg - Labs Labs: 08/08/18 10:20 08/08/18 10:20 - Head Exam Head Exam: NORMAL INSPECTION - Eye Exam Eye Exam: Normal appearance - ENT Exam ENT Exam: Mucous Membranes Moist - Respiratory Exam Respiratory Exam: Decreased Breath Sounds - Cardiovascular Exam Cardiovascular Exam: Irregular Rhythm - GI/Abdominal Exam GI & Abdominal Exam: Normal Bowel Sounds - Neurological Exam Neurological Exam: Awake - Psychiatric Exam Psychiatric exam: Anxious Assessment and Plan (1) CHF (congestive heart failure) Status: Acute (2) Pleural effusion Status: Acute (3) Atrial fibrillation Status: Acute (4) Severe mitral insufficiency Status: Acute (5) Afib Status: Chronic (6) DM2 (diabetes mellitus, type 2) Status: Chronic (7) HTN (hypertension) Status: Chronic (8) Pulmonary hypertension Status: Chronic - Assessment and Plan (Free Text) Plan: Cont meds Cont tx Cont PT Cont diuresis advised subacute rehab eval
[2018-08-10 08:46] LABS: ABG ALLEN TEST YES; ARTERIAL BLOOD GAS HCO3 37.2 mmol/L (21-28); ARTERIAL BLOOD GAS HEMOGLOBIN 14.6 g/dL (11.7-17.4); ARTERIAL BLOOD GAS O2 CAPACITY 19.9 mL/dL (16-24); ARTERIAL BLOOD GAS O2 CONTENT 19.9 ML/dL (15-23); ARTERIAL BLOOD GAS O2 SAT 100.1 % (95-98); ARTERIAL BLOOD GAS PCO2 57 mm/Hg (35-45); ARTERIAL BLOOD GAS PH 7.48 (7.35-7.45); ARTERIAL BLOOD GAS PO2 132 mm/Hg (80-100); ARTERIAL BLOOD GAS TCO2 44.1 mmol/L (22-28)
[2018-08-10 09:16] LABS: BASO # 0.1 K/uL (0.0-0.2); BASO % 0.5 % (0.0-2.0); EOS # 0.4 K/uL (0.0-0.7); EOS % 3.4 % (0.0-4.0); HEMOGLOBIN 14.1 g/dL (12.0-16.0); LYMPH # 0.4 K/uL (1.0-4.3); LYMPH % 3.1 % (20.0-40.0); MEAN CELL VOLUME 97.6 fl (81.0-99.0); MEAN CORPUSCULAR HGB CONC 33.9 g/dL (33.0-37.0); MEAN PLATELET VOLUME 10.6 fl (7.2-11.7); MONO % 8.5 % (0.0-10.0); NEUT # 10.5 K/uL (1.8-7.0); NEUT % 84.5 % (50.0-75.0); NRBC % 0.5 % (0.0-0.0); PLATELET COUNT 133 K/uL (130-400); RBC 4.27 Mil/uL (3.80-5.20); RED CELL DISTRIBUTION WIDTH 14.4 % (11.5-14.5); WHITE BLOOD COUNT 12.4 K/uL (4.8-10.8)
[2018-08-10 09:22] LABS: ALB/GLOB RATIO 0.9 (1.0-2.1); ALBUMIN 3.5 g/dL (3.5-5.0); ALT/SGPT 110 U/L (9-52); AST/SGOT 55 U/L (14-36); BLOOD UREA NITROGEN 52 mg/dl (7-17); CALCIUM 10.2 mg/dL (8.4-10.2); GFR NON-AFRICAN AMERICAN 60
[2018-08-10 09:28] LABS: B-TYPE NATRIURETIC PEPTIDE 5880 pg/ml (0-900)
[2018-08-10] MEDS: diltiaZEM 120 mg/24 Hours CD Cap PO SCH (09:43)
[2018-08-10] MEDS: Insulin Lispro (humaLOG) 100 Units/ml Inj SC SCH ×2 (09:45→17:39)
[2018-08-10] MEDS: MethylPREDNISolone 40 mg Vial IVP SCH ×2 (09:48→17:40)
[2018-08-10] MEDS: Tiotropium 18 mcg Cap For Inhalation INH SCH (09:48)
[2018-08-10] MEDS: Levothyroxine 25 MCG TAB PO SCH (09:49)
[2018-08-10] MEDS: Azithromycin 500 MG in Sodium Chloride 0.9% 250 ML IVPB SCH (09:50)
[2018-08-10 10:57] LABS: LYMPHOCYTE 9 % (20-50); MONOCYTE 6 % (0-10); NEUTROPHIL 85 % (42-75); TOTAL CELLS COUNTED 100
[2018-08-10 10:58] LABS: ANISOCYTOSIS SLIGHT; OVALOCYTES SLIGHT; PLATELET ESTIMATE SLIGHTLY DECREASED (NORMAL)
[2018-08-10 10:59] LABS: LARGE PLATELETS PRESENT
[2018-08-10 11:01] LABS: PLATELET CLUMPS PRESENT
--- NOTE | 2018-08-10 11:40 | CP.PCM.PN ---
Subjective - Date & Time of Evaluation Date of Evaluation: 08/10/18 Time of Evaluation: 11:45 - Subjective Subjective: PLACED ON BIPAP LAST NIGHT BECAUSE OF SEVERE RESPIRATORY DISTRESS AND HYPOXEMIA ATTEMPTING TO REMOVE BIPAP VERY ANXIOUS O2 SAT ADEQUATE Objective - Vital Signs/Intake and Output Vital Signs (last 24 hours): Temp Pulse Resp BP Pulse Ox 98.7 F 113 H 20 160/82 H 97 08/10/18 08:45 08/10/18 08:45 08/10/18 08:45 08/10/18 09:46 08/10/18 08:45 - Medications Medications: Current Medications Albuterol/Ipratropium (Duoneb 3 Mg/0.5 Mg (3 Ml) Ud) 3 ml INH RQ6 [facility] Last Admin: 08/10/18 07:59 Dose: 3 ml Albuterol/Ipratropium (Duoneb 3 Mg/0.5 Mg (3 Ml) Ud) 3 ml INH RQ4 PRN PRN Reason: Shortness of Breath Last Admin: 08/09/18 17:34 Dose: 3 ml Anastrozole (Arimidex 1 Mg Tab) 1 mg PO DAILY [facility] Last Admin: 08/10/18 09:43 Dose: Not Given Benzocaine/Menthol (Cepacol Sore Throat) 1 malu PO Q2 PRN PRN Reason: Sore Throat Last Admin: 08/07/18 21:45 Dose: 1 malu Calcium Acetate (Phoslo) 667 mg PO DAILY [facility] Last Admin: 08/10/18 09:48 Dose: Not Given Dextrose (Dextrose 50% Inj) 0 ml IV STAT PRN; Protocol PRN Reason: Hypoglycemia Protocol Dextrose (Glutose 15) 0 gm PO ONCE PRN; Protocol PRN Reason: Hypoglycemia Protocol Diltiazem HCl (Cardizem Cd) 120 mg PO DAILY [facility] Last Admin: 08/10/18 09:43 Dose: Not Given Ergocalciferol (Drisdol 50,000 Intl Units Cap) 1 cap PO QWK [facility] Escitalopram Oxalate (Lexapro) 20 mg PO DAILY [facility] Last Admin: 08/10/18 09:47 Dose: Not Given Furosemide (Lasix) 40 mg IVP DAILY [facility] Last Admin: 08/10/18 09:46 Dose: 40 mg Glucagon (Glucagen Diagnostic Kit) 0 mg IM STAT PRN; Protocol PRN Reason: Hypoglycemia Protocol Guaifenesin/Dextromethorphan (Robitussin Dm) 10 ml PO Q6 PRN PRN Reason: Cough Last Admin: 08/09/18 09:02 Dose: 10 ml Azithromycin 500 mg/ Sodium (Chloride) 250 mls @ 250 mls/hr IVPB DAILY [facility]; Protocol Last Admin: 08/10/18 09:50 Dose: 250 mls/hr Insulin Detemir (Levemir) 15 units SC HS [facility] Last Admin: 08/09/18 22:36 Dose: 15 unit Insulin Human Lispro (Humalog) 10 units SC TIDAC [facility] Last Admin: 08/10/18 09:45 Dose: Not Given Lactulose (Enulose) 20 gm PO TID [facility] Last Admin: 08/10/18 09:44 Dose: Not Given Levothyroxine Sodium (Synthroid) 25 mcg PO DAILY@0630 [facility] Last Admin: 08/10/18 09:49 Dose: Not Given Losartan Potassium (Cozaar) 50 mg PO DAILY [facility] Last Admin: 08/10/18 09:44 Dose: Not Given Metformin HCl (Glucophage) 500 mg PO BIDWM [facility] Last Admin: 08/10/18 09:45 Dose: Not Given Methylprednisolone (Solu-Medrol) 40 mg IVP BID [facility] Last Admin: 08/10/18 09:48 Dose: 40 mg Rifaximin (Xifaxan) 550 mg PO BID [facility]; Protocol Last Admin: 08/10/18 09:49 Dose: Not Given Sitagliptin Phosphate (Januvia) 100 mg PO DAILY [facility] Last Admin: 08/10/18 09:47 Dose: Not Given Tiotropium [place] (Spiriva) 18 mcg INH DAILY [facility] Last Admin: 08/10/18 09:48 Dose: Not Given - Labs Labs: 08/10/18 09:03 08/10/18 09:03 - Constitutional Appears: Agitated, Chronically Ill - Head Exam Head Exam: ATRAUMATIC, NORMAL INSPECTION, NORMOCEPHALIC - Eye Exam Eye Exam: EOMI, Normal appearance, PERRL Pupil Exam: NORMAL ACCOMODATION, PERRL - ENT Exam ENT Exam: Mucous Membranes Moist, Normal Exam - Neck Exam Neck Exam: Full ROM, Normal Inspection. absent: Lymphadenopathy - Respiratory Exam Respiratory Exam: Decreased Breath Sounds, Prolonged Expiratory Phase, Rales Additional comments: ON BIPAP - Cardiovascular Exam Cardiovascular Exam: Irregular Rhythm, +S1, +S2. absent: Murmur - GI/Abdominal Exam GI & Abdominal Exam: Soft, Normal Bowel Sounds. absent: Tenderness - Rectal Exam Rectal Exam: NORMAL INSPECTION - Extremities Exam Extremities Exam: Full ROM, Normal Capillary Refill, Normal Inspection. absent: Joint Swelling, Pedal Edema - Back Exam Back Exam: NORMAL INSPECTION - Neurological Exam Neurological Exam: Alert, Awake, CN II-XII Intact - Psychiatric Exam Psychiatric exam: Normal Affect, Normal Mood - Skin Skin Exam: Dry, Intact, Normal Color, Warm Assessment and Plan - Assessment and Plan (Free Text) Assessment: ACUTE HYPERCAPNEIC RESPIRATORY FAILURE[ASTHMA/COPD]--?SUPERIMPOSED PNEUMONIA[ABGS--ADEQUATE] CHF ARRYTHMIAS VALVULAR HEART DZ ANXIETY Plan: CASE DISCUSSED WITH DR LORENZO RE-NEED FOR AGRESSIVE INTERVENTION--ie-ENDOTRACHEAL INTUBATION AND VENTILATION IF CLINICAL CONDITION WORSENS DR LORENZO TO DISCUS WITH FAMILY WILL CONTINUE BIPAP THERAPY FOR NOW MAY NEED VENT THERAPY IF WORSE
--- NOTE | 2018-08-10 11:58 | PQF ---
PROVIDER RESPONSE TEXT: SUSPECTED PNEUMONIA REVIEWER QUERY TEXT: Pneumonia Specificity Pneumonia is documented in the Medical Record. Please specify the type of pneumonia and the causative organism (includes probable or suspected) if known versus Pneumonia ruled out Such as: Type: -- Aspiration pneumonia (please also specify the aspirate) - Please indicate if the aspiration is postprocedure -- Bacterial (please document suspected or probable organism) -- Bronchopneumonia (please document suspected or probable organism) -- Interstitial pneumonia -- Organizing pneumonia / BOOP -- Pneumonia with influenza, jose flu, or H1N1 flu -- Viral -- Other, please specify 08/04 CXR: Mild diffuse pulmonary venous congestive changes with bilateral lower lobe alveolar-type i nfiltrates and bilateral effusions.Redemonstrated is localized chronic atelectasis/scarring right mid lung field.Mild atelectasis left mid lung field. 08/[address]: Cardiomegaly with small pericardial effusion.Moderately large right-sided effusion a nd mild to moderate right basilar atelectasis.Small left-sided effusion and mild left basilar atelect asis.Areas of atelectatic and/or scarring changes seen in the upper lobes including the middle lobe and lingular regions.Probable underlying pulmonary venous congestive changes.Cirrhotic liver with upp er abdominal varices Marked cardiomegaly. 08/08 CXR:Mild cardiomegaly and pulmonary venous congestion. Small right pleural effusion. 08/06: 08/07 Pulmonary consult.:CHF ASTHMA/COPD EXAC PLEURAL EFFUSION--?SUPERIMPOSED PNEUMONIA HTN 08/07 Pulmonary consult: Acute congestive heart failure with chronic obstructive pulmonary disease exac erbation, one has to rule out acute coronary syndrome, hypertension, poorly controlled.One also has t o rule out superimposed pneumonia. 08/08 Pulmonary progress note; CHF ,ACUTE EXAC OF ASTHMA/COPD , URI -azithromycin IV The patient's Clinical Indicators include: -- Query created by: Rosa Mejia on 08/10/2018 9:10 AM Electronically signed by: Marco Hughes MD 08/10/2018 11:56 AM
--- NOTE | 2018-08-10 14:04 | CP.PCM.PCO ---
Assessment/Plan - Assessment and Plan (Free Text) Assessment: Patient seen and examined remains agitated, on bipap Plan discussed with Dr Wayne and Dr Hughes -Dr Wayne has discussed the plan with the family, son Stalin Sheth. Code status has been addressed. Pt to be DNI at this time, family still deciding on DNR. WIll cont to closely monitor. RN made aware of code status change.
--- NOTE | 2018-08-10 14:27 | RAD ---
Date of service: 08/10/2018 HISTORY: increasing sob COMPARISON: 08/08/2018. Single-view chest 08/04/2018 CT thorax FINDINGS: LUNGS: Worsening pulmonary vascular congestion PLEURA: Stable pleural effusions CARDIOVASCULAR: Atherosclerotic calcifications identified primarily aortic arch. Position/ configuration of pacemaker Cardiomegaly and worsening pulmonary vascular congestion. OSSEOUS STRUCTURES: No significant abnormalities. VISUALIZED UPPER ABDOMEN: Normal. OTHER FINDINGS: None. IMPRESSION: Progressive/worsening CHF.
--- NOTE | 2018-08-10 17:57 | CP.PCM.PN ---
Subjective - Date & Time of Evaluation Date of Evaluation: 08/10/18 Time of Evaluation: 17:30 - Subjective Subjective: events noted. patient is on BiPAP. son is at the bedside. Objective - Vital Signs/Intake and Output Vital Signs (last 24 hours): Temp Pulse Resp BP Pulse Ox 98.4 F 98 H 18 155/77 H 95 08/10/18 16:27 08/10/18 16:27 08/10/18 16:27 08/10/18 16:27 08/10/18 16:27 - Medications Medications: Current Medications Albuterol/Ipratropium (Duoneb 3 Mg/0.5 Mg (3 Ml) Ud) 3 ml INH RQ6 [facility] Last Admin: 08/10/18 13:45 Dose: 3 ml Albuterol/Ipratropium (Duoneb 3 Mg/0.5 Mg (3 Ml) Ud) 3 ml INH RQ4 PRN PRN Reason: Shortness of Breath Last Admin: 08/09/18 17:34 Dose: 3 ml Anastrozole (Arimidex 1 Mg Tab) 1 mg PO DAILY [facility] Last Admin: 08/10/18 09:43 Dose: Not Given Benzocaine/Menthol (Cepacol Sore Throat) 1 malu PO Q2 PRN PRN Reason: Sore Throat Last Admin: 08/07/18 21:45 Dose: 1 malu Calcium Acetate (Phoslo) 667 mg PO DAILY [facility] Last Admin: 08/10/18 09:48 Dose: Not Given Dextrose (Dextrose 50% Inj) 0 ml IV STAT PRN; Protocol PRN Reason: Hypoglycemia Protocol Dextrose (Glutose 15) 0 gm PO ONCE PRN; Protocol PRN Reason: Hypoglycemia Protocol Diltiazem HCl (Cardizem Cd) 120 mg PO DAILY [facility] Last Admin: 08/10/18 09:43 Dose: Not Given Ergocalciferol (Drisdol 50,000 Intl Units Cap) 1 cap PO QWK [facility] Escitalopram Oxalate (Lexapro) 20 mg PO DAILY [facility] Last Admin: 08/10/18 09:47 Dose: Not Given Furosemide (Lasix) 40 mg IVP DAILY [facility] Last Admin: 08/10/18 09:46 Dose: 40 mg Glucagon (Glucagen Diagnostic Kit) 0 mg IM STAT PRN; Protocol PRN Reason: Hypoglycemia Protocol Guaifenesin/Dextromethorphan (Robitussin Dm) 10 ml PO Q6 PRN PRN Reason: Cough Last Admin: 08/09/18 09:02 Dose: 10 ml Azithromycin 500 mg/ Sodium (Chloride) 250 mls @ 250 mls/hr IVPB DAILY [facility]; Protocol Last Admin: 08/10/18 09:50 Dose: 250 mls/hr Insulin Detemir (Levemir) 15 units SC HS [facility] Last Admin: 08/09/18 22:36 Dose: 15 unit Insulin Human Lispro (Humalog) 10 units SC TIDAC [facility] Last Admin: 08/10/18 17:39 Dose: Not Given Lactulose (Enulose) 20 gm PO TID [facility] Last Admin: 08/10/18 17:37 Dose: Not Given Levothyroxine Sodium (Synthroid) 25 mcg PO DAILY@0630 [facility] Last Admin: 08/10/18 09:49 Dose: Not Given Losartan Potassium (Cozaar) 50 mg PO DAILY [facility] Last Admin: 08/10/18 09:44 Dose: Not Given Metformin HCl (Glucophage) 500 mg PO BIDWM [facility] Last Admin: 08/10/18 17:38 Dose: Not Given Methylprednisolone (Solu-Medrol) 40 mg IVP BID [facility] Last Admin: 08/10/18 17:40 Dose: 40 mg Rifaximin (Xifaxan) 550 mg PO BID [facility]; Protocol Last Admin: 08/10/18 17:41 Dose: Not Given Sitagliptin Phosphate (Januvia) 100 mg PO DAILY [facility] Last Admin: 08/10/18 09:47 Dose: Not Given Tiotropium [place] (Spiriva) 18 mcg INH DAILY [facility] Last Admin: 08/10/18 09:48 Dose: Not Given - Labs Labs: 08/10/18 09:03 08/10/18 09:03 - Constitutional Appears: Toxic - Head Exam Head Exam: NORMAL INSPECTION - Eye Exam Eye Exam: Normal appearance - ENT Exam ENT Exam: Mucous Membranes Moist - Neck Exam Neck Exam: Full ROM - Respiratory Exam Respiratory Exam: Decreased Breath Sounds, Rales - Cardiovascular Exam Cardiovascular Exam: Irregular Rhythm - GI/Abdominal Exam GI & Abdominal Exam: Normal Bowel Sounds - Rectal Exam Rectal Exam: Deferred - Extremities Exam Extremities Exam: absent: Pedal Edema - Back Exam Back Exam: NORMAL INSPECTION - Neurological Exam Neurological Exam: Alert - Psychiatric Exam Psychiatric exam: Normal Affect - Skin Skin Exam: Normal Color Assessment and Plan (1) Acute diastolic heart failure due to valvular disease Assessment & Plan: CXR suggests progressive dyspnea. will need increased lasix. change to twice daily Status: Acute (2) Atrial fibrillation Assessment & Plan: rate controlled. not on anticoagulation Status: Acute (3) HTN (hypertension) Assessment & Plan: blood pressure control Status: Chronic (4) Mitral valve regurgitation Status: Chronic
[2018-08-10] MEDS: Insulin Detemir 100 Units/ml Inj SC SCH (21:31)
[2018-08-11] MEDS: Albuterol-Ipratrop 3 mg / 0.5 (3 ml) UD INH SCH ×3 (01:01→13:16)
[2018-08-11] MEDS: Levothyroxine 25 MCG TAB PO SCH (06:05)
[2018-08-11] MEDS: Tiotropium 18 mcg Cap For Inhalation INH SCH (09:22)
[2018-08-11] MEDS: MethylPREDNISolone 40 mg Vial IVP SCH ×2 (09:23→17:15)
[2018-08-11] MEDS: Insulin Lispro (humaLOG) 100 Units/ml Inj SC SCH ×3 (09:23→17:13)
[2018-08-11] MEDS: Azithromycin 500 MG in Sodium Chloride 0.9% 250 ML IVPB SCH (09:24)
[2018-08-11] MEDS: diltiaZEM 120 mg/24 Hours CD Cap PO SCH (09:26)
--- NOTE | 2018-08-11 10:36 | CP.PCM.PN ---
Subjective - Date & Time of Evaluation Date of Evaluation: 08/11/18 Time of Evaluation: 10:38 - Subjective Subjective: ON BIPAP EPISODES OF AGITATION O2 SAT ADEQUATE Objective - Vital Signs/Intake and Output Vital Signs (last 24 hours): Temp Pulse Resp BP Pulse Ox 98.2 F 107 H 20 160/82 H 95 08/11/18 07:50 08/11/18 09:26 08/11/18 07:50 08/11/18 09:26 08/11/18 07:50 - Medications Medications: Current Medications Albuterol/Ipratropium (Duoneb 3 Mg/0.5 Mg (3 Ml) Ud) 3 ml INH RQ6 [facility] Last Admin: 08/11/18 07:32 Dose: 3 ml Albuterol/Ipratropium (Duoneb 3 Mg/0.5 Mg (3 Ml) Ud) 3 ml INH RQ4 PRN PRN Reason: Shortness of Breath Last Admin: 08/09/18 17:34 Dose: 3 ml Anastrozole (Arimidex 1 Mg Tab) 1 mg PO DAILY [facility] Last Admin: 08/11/18 09:21 Dose: 1 mg Benzocaine/Menthol (Cepacol Sore Throat) 1 malu PO Q2 PRN PRN Reason: Sore Throat Last Admin: 08/07/18 21:45 Dose: 1 malu Calcium Acetate (Phoslo) 667 mg PO DAILY [facility] Last Admin: 08/11/18 09:22 Dose: 667 mg Dextrose (Dextrose 50% Inj) 0 ml IV STAT PRN; Protocol PRN Reason: Hypoglycemia Protocol Dextrose (Glutose 15) 0 gm PO ONCE PRN; Protocol PRN Reason: Hypoglycemia Protocol Diltiazem HCl (Cardizem Cd) 120 mg PO DAILY [facility] Last Admin: 08/11/18 09:26 Dose: 120 mg Ergocalciferol (Drisdol 50,000 Intl Units Cap) 1 cap PO QWK [facility] Escitalopram Oxalate (Lexapro) 20 mg PO DAILY [facility] Last Admin: 08/11/18 09:24 Dose: 20 mg Furosemide (Lasix) 40 mg IVP BID [facility] Last Admin: 08/11/18 09:24 Dose: 40 mg Glucagon (Glucagen Diagnostic Kit) 0 mg IM STAT PRN; Protocol PRN Reason: Hypoglycemia Protocol Guaifenesin/Dextromethorphan (Robitussin Dm) 10 ml PO Q6 PRN PRN Reason: Cough Last Admin: 08/09/18 09:02 Dose: 10 ml Azithromycin 500 mg/ Sodium (Chloride) 250 mls @ 250 mls/hr IVPB DAILY [facility]; Protocol Last Admin: 08/11/18 09:24 Dose: 250 mls/hr Insulin Detemir (Levemir) 15 units SC HS [facility] Last Admin: 08/10/18 21:31 Dose: 15 unit Insulin Human Lispro (Humalog) 10 units SC TIDAC [facility] Last Admin: 08/11/18 09:23 Dose: 10 units Lactulose (Enulose) 20 gm PO TID [facility] Last Admin: 08/11/18 09:25 Dose: Not Given Levothyroxine Sodium (Synthroid) 25 mcg PO DAILY@0630 [facility] Last Admin: 08/11/18 06:05 Dose: Not Given Losartan Potassium (Cozaar) 50 mg PO DAILY [facility] Last Admin: 08/11/18 09:22 Dose: 50 mg Metformin HCl (Glucophage) 500 mg PO BIDWM [facility] Last Admin: 08/11/18 09:21 Dose: 500 mg Methylprednisolone (Solu-Medrol) 40 mg IVP BID [facility] Last Admin: 08/11/18 09:23 Dose: 40 mg Rifaximin (Xifaxan) 550 mg PO BID [facility]; Protocol Last Admin: 08/11/18 09:22 Dose: 550 mg Sitagliptin Phosphate (Januvia) 100 mg PO DAILY [facility] Last Admin: 08/11/18 09:22 Dose: 100 mg Tiotropium [place] (Spiriva) 18 mcg INH DAILY [facility] Last Admin: 08/11/18 09:22 Dose: 18 mcg - Labs Labs: 08/10/18 09:03 08/10/18 09:03 - Constitutional Appears: Chronically Ill - Head Exam Head Exam: ATRAUMATIC, NORMAL INSPECTION, NORMOCEPHALIC - Eye Exam Eye Exam: EOMI, Normal appearance, PERRL Pupil Exam: NORMAL ACCOMODATION, PERRL - ENT Exam ENT Exam: Mucous Membranes Moist, Normal Exam - Neck Exam Neck Exam: Full ROM, Normal Inspection. absent: Lymphadenopathy - Respiratory Exam Respiratory Exam: Decreased Breath Sounds, Prolonged Expiratory Phase, Rales Additional comments: ON BIPAP - Cardiovascular Exam Cardiovascular Exam: Irregular Rhythm, +S1, +S2. absent: Murmur - GI/Abdominal Exam GI & Abdominal Exam: Soft, Normal Bowel Sounds. absent: Tenderness - Rectal Exam Rectal Exam: NORMAL INSPECTION - Extremities Exam Extremities Exam: Full ROM, Normal Capillary Refill, Normal Inspection. absent: Joint Swelling, Pedal Edema - Back Exam Back Exam: NORMAL INSPECTION - Neurological Exam Additional comments: EASILY AROUSABLE - Psychiatric Exam Psychiatric exam: Anxious - Skin Skin Exam: Dry, Intact, Normal Color, Warm Assessment and Plan - Assessment and Plan (Free Text) Assessment: ACUTE CHF VALVULAR HEART DZ ASTHMA/COPD EXAC HTN Plan: CONTINUE BIPAP RX PROGNOSIS IS GUARDED
--- NOTE | 2018-08-11 12:36 | CP.PCM.PN ---
Subjective - Date & Time of Evaluation Date of Evaluation: 08/11/18 Time of Evaluation: 12:00 - Subjective Subjective: remains on BiPAP. Objective - Vital Signs/Intake and Output Vital Signs (last 24 hours): Temp Pulse Resp BP Pulse Ox 98.2 F 104 H 20 155/88 H 99 08/11/18 12:00 08/11/18 12:00 08/11/18 12:00 08/11/18 12:00 08/11/18 12:00 - Medications Medications: Current Medications Albuterol/Ipratropium (Duoneb 3 Mg/0.5 Mg (3 Ml) Ud) 3 ml INH RQ6 [facility] Last Admin: 08/11/18 07:32 Dose: 3 ml Albuterol/Ipratropium (Duoneb 3 Mg/0.5 Mg (3 Ml) Ud) 3 ml INH RQ4 PRN PRN Reason: Shortness of Breath Last Admin: 08/09/18 17:34 Dose: 3 ml Anastrozole (Arimidex 1 Mg Tab) 1 mg PO DAILY [facility] Last Admin: 08/11/18 09:21 Dose: 1 mg Benzocaine/Menthol (Cepacol Sore Throat) 1 malu PO Q2 PRN PRN Reason: Sore Throat Last Admin: 08/07/18 21:45 Dose: 1 malu Calcium Acetate (Phoslo) 667 mg PO DAILY [facility] Last Admin: 08/11/18 09:22 Dose: 667 mg Dextrose (Dextrose 50% Inj) 0 ml IV STAT PRN; Protocol PRN Reason: Hypoglycemia Protocol Dextrose (Glutose 15) 0 gm PO ONCE PRN; Protocol PRN Reason: Hypoglycemia Protocol Diltiazem HCl (Cardizem Cd) 120 mg PO DAILY [facility] Last Admin: 08/11/18 09:26 Dose: 120 mg Ergocalciferol (Drisdol 50,000 Intl Units Cap) 1 cap PO QWK [facility] Escitalopram Oxalate (Lexapro) 20 mg PO DAILY [facility] Last Admin: 08/11/18 09:24 Dose: 20 mg Furosemide (Lasix) 40 mg IVP BID [facility] Last Admin: 08/11/18 09:24 Dose: 40 mg Glucagon (Glucagen Diagnostic Kit) 0 mg IM STAT PRN; Protocol PRN Reason: Hypoglycemia Protocol Guaifenesin/Dextromethorphan (Robitussin Dm) 10 ml PO Q6 PRN PRN Reason: Cough Last Admin: 08/09/18 09:02 Dose: 10 ml Azithromycin 500 mg/ Sodium (Chloride) 250 mls @ 250 mls/hr IVPB DAILY [facility]; Protocol Last Admin: 08/11/18 09:24 Dose: 250 mls/hr Insulin Detemir (Levemir) 15 units SC HS [facility] Last Admin: 08/10/18 21:31 Dose: 15 unit Insulin Human Lispro (Humalog) 10 units SC TIDAC [facility] Last Admin: 08/11/18 09:23 Dose: 10 units Lactulose (Enulose) 20 gm PO TID [facility] Last Admin: 08/11/18 09:25 Dose: Not Given Levothyroxine Sodium (Synthroid) 25 mcg PO DAILY@0630 [facility] Last Admin: 08/11/18 06:05 Dose: Not Given Losartan Potassium (Cozaar) 50 mg PO DAILY [facility] Last Admin: 08/11/18 09:22 Dose: 50 mg Metformin HCl (Glucophage) 500 mg PO BIDWM [facility] Last Admin: 08/11/18 09:21 Dose: 500 mg Methylprednisolone (Solu-Medrol) 40 mg IVP BID [facility] Last Admin: 08/11/18 09:23 Dose: 40 mg Rifaximin (Xifaxan) 550 mg PO BID [facility]; Protocol Last Admin: 08/11/18 09:22 Dose: 550 mg Sitagliptin Phosphate (Januvia) 100 mg PO DAILY [facility] Last Admin: 08/11/18 09:22 Dose: 100 mg Tiotropium [place] (Spiriva) 18 mcg INH DAILY [facility] Last Admin: 08/11/18 09:22 Dose: 18 mcg - Labs Labs: 08/10/18 09:03 08/10/18 09:03 - Constitutional Appears: No Acute Distress - Head Exam Head Exam: NORMAL INSPECTION - Eye Exam Eye Exam: Normal appearance - ENT Exam ENT Exam: Mucous Membranes Moist - Neck Exam Neck Exam: Full ROM - Respiratory Exam Respiratory Exam: Decreased Breath Sounds, Rhonchi - Cardiovascular Exam Cardiovascular Exam: Irregular Rhythm - GI/Abdominal Exam GI & Abdominal Exam: Normal Bowel Sounds - Rectal Exam Rectal Exam: Deferred - Extremities Exam Extremities Exam: Pedal Edema - Back Exam Back Exam: NORMAL INSPECTION - Neurological Exam Neurological Exam: Alert - Psychiatric Exam Psychiatric exam: Normal Affect - Skin Skin Exam: Normal Color Assessment and Plan (1) Acute diastolic heart failure due to valvular disease Assessment & Plan: continue medical therapy. poor overall prognosis. not a candidate for valvular procedure Status: Acute (2) Atrial fibrillation Assessment & Plan: rate controlled. Status: Acute (3) HTN (hypertension) Assessment & Plan: titrate meds Status: Chronic (4) Mitral valve regurgitation Assessment & Plan: conservative therapy Status: Chronic
[2018-08-11] MEDS: Insulin Detemir 100 Units/ml Inj SC SCH (22:30)
[2018-08-12] MEDS: Levothyroxine 25 MCG TAB PO SCH (06:00)
[2018-08-12 06:51] LABS: HEMOGLOBIN 13.7 g/dL (12.0-16.0); MEAN CELL VOLUME 98.3 fl (81.0-99.0); MEAN CORPUSCULAR HEMOGLOBIN 32.2 pg (27.0-31.0); MEAN CORPUSCULAR HGB CONC 32.8 g/dL (33.0-37.0); RBC 4.25 Mil/uL (3.80-5.20); RED CELL DISTRIBUTION WIDTH 13.9 % (11.5-14.5); WHITE BLOOD COUNT 12.3 K/uL (4.8-10.8)
[2018-08-12 07:41] LABS: ALB/GLOB RATIO 0.8 (1.0-2.1); ALBUMIN 3.3 g/dL (3.5-5.0); CALCIUM 9.9 mg/dL (8.4-10.2)
[2018-08-12] MEDS ORDERED: Potassium Chloride 20 mEq ER Tab PO ONE (08:57)
[2018-08-12] MEDS: Insulin Lispro (humaLOG) 100 Units/ml Inj SC SCH ×3 (09:00→17:26)
[2018-08-12] MEDS: diltiaZEM 120 mg/24 Hours CD Cap PO SCH (10:44)
[2018-08-12] MEDS: MethylPREDNISolone 40 mg Vial IVP SCH ×2 (10:45→17:25)
[2018-08-12] MEDS: Tiotropium 18 mcg Cap For Inhalation INH SCH (10:46)
--- NOTE | 2018-08-12 11:17 | CP.PCM.PN ---
Subjective - Date & Time of Evaluation Date of Evaluation: 08/12/18 Time of Evaluation: 11:16 - Subjective Subjective: MORE AWAKE AND ALERT SOB IMPROVING Objective - Vital Signs/Intake and Output Vital Signs (last 24 hours): Temp Pulse Resp BP Pulse Ox 97.6 F 92 H 20 131/66 98 08/12/18 07:41 08/12/18 11:03 08/12/18 07:41 08/12/18 10:47 08/12/18 07:41 - Medications Medications: Current Medications Albuterol/Ipratropium (Duoneb 3 Mg/0.5 Mg (3 Ml) Ud) 3 ml INH RQ4 PRN PRN Reason: Shortness of Breath Last Admin: 08/09/18 17:34 Dose: 3 ml Anastrozole (Arimidex 1 Mg Tab) 1 mg PO DAILY [facility] Last Admin: 08/12/18 10:48 Dose: 1 mg Benzocaine/Menthol (Cepacol Sore Throat) 1 malu PO Q2 PRN PRN Reason: Sore Throat Last Admin: 08/07/18 21:45 Dose: 1 malu Calcium Acetate (Phoslo) 667 mg PO DAILY [facility] Last Admin: 08/12/18 10:43 Dose: 667 mg Dextrose (Dextrose 50% Inj) 0 ml IV STAT PRN; Protocol PRN Reason: Hypoglycemia Protocol Dextrose (Glutose 15) 0 gm PO ONCE PRN; Protocol PRN Reason: Hypoglycemia Protocol Diltiazem HCl (Cardizem Cd) 120 mg PO DAILY [facility] Last Admin: 08/12/18 10:44 Dose: 120 mg Ergocalciferol (Drisdol 50,000 Intl Units Cap) 1 cap PO QWK [facility] Escitalopram Oxalate (Lexapro) 20 mg PO DAILY [facility] Last Admin: 08/12/18 10:44 Dose: 20 mg Furosemide (Lasix) 40 mg IVP BID [facility] Last Admin: 08/12/18 10:44 Dose: 40 mg Glucagon (Glucagen Diagnostic Kit) 0 mg IM STAT PRN; Protocol PRN Reason: Hypoglycemia Protocol Guaifenesin/Dextromethorphan (Robitussin Dm) 10 ml PO Q6 PRN PRN Reason: Cough Last Admin: 08/09/18 09:02 Dose: 10 ml Insulin Detemir (Levemir) 15 units SC [facility] Last Admin: 08/11/18 22:30 Dose: 15 unit Insulin Human Lispro (Humalog) 10 units SC TIDAC [facility] Last Admin: 08/12/18 09:00 Dose: 10 units Lactulose (Enulose) 20 gm PO TID [facility] Last Admin: 08/12/18 11:12 Dose: 20 gm Levothyroxine Sodium (Synthroid) 25 mcg PO DAILY@0630 [facility] Last Admin: 08/11/18 06:05 Dose: Not Given Losartan Potassium (Cozaar) 50 mg PO DAILY [facility] Last Admin: 08/12/18 10:47 Dose: 50 mg Metformin HCl (Glucophage) 500 mg PO BIDWM [facility] Last Admin: 08/12/18 10:45 Dose: 500 mg Methylprednisolone (Solu-Medrol) 40 mg IVP BID [facility] Last Admin: 08/12/18 10:45 Dose: 40 mg Rifaximin (Xifaxan) 550 mg PO BID [facility]; Protocol Last Admin: 08/12/18 10:46 Dose: 550 mg Sitagliptin Phosphate (Januvia) 100 mg PO DAILY [facility] Last Admin: 08/12/18 10:45 Dose: 100 mg Tiotropium [place] (Spiriva) 18 mcg INH DAILY [facility] Last Admin: 08/12/18 10:46 Dose: Not Given - Labs Labs: 08/12/18 05:20 08/12/18 05:20 - Constitutional Appears: Chronically Ill - Head Exam Head Exam: ATRAUMATIC, NORMAL INSPECTION, NORMOCEPHALIC - Eye Exam Eye Exam: EOMI, Normal appearance, PERRL Pupil Exam: NORMAL ACCOMODATION, PERRL - ENT Exam ENT Exam: Mucous Membranes Moist, Normal Exam - Neck Exam Neck Exam: Full ROM, Normal Inspection. absent: Lymphadenopathy - Respiratory Exam Respiratory Exam: Prolonged Expiratory Phase, Rales, Wheezes, NORMAL BREATHING PATTERN - Cardiovascular Exam Cardiovascular Exam: REGULAR RHYTHM, +S1, +S2. absent: Murmur - GI/Abdominal Exam GI & Abdominal Exam: Soft, Normal Bowel Sounds. absent: Tenderness - Rectal Exam Rectal Exam: NORMAL INSPECTION - Extremities Exam Extremities Exam: Full ROM, Normal Capillary Refill, Normal Inspection. absent: Joint Swelling, Pedal Edema - Back Exam Back Exam: NORMAL INSPECTION - Neurological Exam Neurological Exam: Alert, Awake, CN II-XII Intact, Oriented x3 - Psychiatric Exam Psychiatric exam: Normal Affect, Normal Mood - Skin Skin Exam: Dry, Intact, Normal Color, Warm Assessment and Plan - Assessment and Plan (Free Text) Assessment: RESPIRATORY FAILURE--IMPROVING CHF VALVULAR HEART DZ Plan: BIPAP TO ALTERNATE WITH NC O2
[2018-08-12] MEDS: Insulin Detemir 100 Units/ml Inj SC SCH (21:46)
[2018-08-12] MEDS: guaiFENesin DM 200 mg-20 mg/10 ml UD PO PRN (22:16)
[2018-08-13] MEDS: Levothyroxine 25 MCG TAB PO SCH (05:50)
[2018-08-13] MEDS: MethylPREDNISolone 40 mg Vial IVP SCH (08:08)
[2018-08-13] MEDS: Insulin Lispro (humaLOG) 100 Units/ml Inj SC SCH ×3 (08:09→17:13)
[2018-08-13 08:25] LABS: ABG ALLEN TEST YES; ARTERIAL BLOOD GAS HCO3 32.8 mmol/L (21-28); ARTERIAL BLOOD GAS HEMOGLOBIN 15.4 g/dL (11.7-17.4); ARTERIAL BLOOD GAS O2 CAPACITY 20.8 mL/dL (16-24); ARTERIAL BLOOD GAS O2 CONTENT 20.6 ML/dL (15-23); ARTERIAL BLOOD GAS O2 SAT 98.9 % (95-98); ARTERIAL BLOOD GAS PCO2 69 mm/Hg (35-45); ARTERIAL BLOOD GAS PH 7.36 (7.35-7.45); ARTERIAL BLOOD GAS PO2 94 mm/Hg (80-100); ARTERIAL BLOOD GAS TCO2 41.1 mmol/L (22-28)
--- NOTE | 2018-08-13 08:28 | CP.PCM.PN ---
Subjective - Date & Time of Evaluation Date of Evaluation: 08/13/18 Time of Evaluation: 08:28 - Subjective Subjective: MORE AWAKE AND ALERT SOB IMPROVED O2 SAT-99% Objective - Vital Signs/Intake and Output Vital Signs (last 24 hours): Temp Pulse Resp BP Pulse Ox 97.5 F L 96 H 18 139/77 99 08/13/18 07:59 08/13/18 07:59 08/13/18 07:59 08/13/18 08:09 08/13/18 07:59 - Medications Medications: Current Medications Albuterol/Ipratropium (Duoneb 3 Mg/0.5 Mg (3 Ml) Ud) 3 ml INH RQ4 PRN PRN Reason: Shortness of Breath Last Admin: 08/09/18 17:34 Dose: 3 ml Anastrozole (Arimidex 1 Mg Tab) 1 mg PO DAILY [facility] Last Admin: 08/12/18 10:48 Dose: 1 mg Benzocaine/Menthol (Cepacol Sore Throat) 1 malu PO Q2 PRN PRN Reason: Sore Throat Last Admin: 08/07/18 21:45 Dose: 1 malu Calcium Acetate (Phoslo) 667 mg PO DAILY [facility] Last Admin: 08/12/18 10:43 Dose: 667 mg Dextrose (Dextrose 50% Inj) 0 ml IV STAT PRN; Protocol PRN Reason: Hypoglycemia Protocol Dextrose (Glutose 15) 0 gm PO ONCE PRN; Protocol PRN Reason: Hypoglycemia Protocol Diltiazem HCl (Cardizem Cd) 120 mg PO DAILY [facility] Last Admin: 08/12/18 10:44 Dose: 120 mg Ergocalciferol (Drisdol 50,000 Intl Units Cap) 1 cap PO QWK [facility] Escitalopram Oxalate (Lexapro) 20 mg PO DAILY [facility] Last Admin: 08/12/18 10:44 Dose: 20 mg Furosemide (Lasix) 40 mg IVP BID [facility] Last Admin: 08/13/18 08:09 Dose: 40 mg Glucagon (Glucagen Diagnostic Kit) 0 mg IM STAT PRN; Protocol PRN Reason: Hypoglycemia Protocol Guaifenesin/Dextromethorphan (Robitussin Dm) 10 ml PO Q6 PRN PRN Reason: Cough Last Admin: 08/12/18 22:16 Dose: 10 ml Insulin Detemir (Levemir) 15 units SC HS [facility] Last Admin: 08/12/18 21:46 Dose: 15 unit Insulin Human Lispro (Humalog) 10 units SC TIDAC [facility] Last Admin: 08/13/18 08:09 Dose: 10 units Lactulose (Enulose) 20 gm PO TID [facility] Last Admin: 08/12/18 17:26 Dose: 20 gm Levothyroxine Sodium (Synthroid) 25 mcg PO DAILY@0630 [facility] Last Admin: 08/13/18 05:50 Dose: 25 mcg Losartan Potassium (Cozaar) 50 mg PO DAILY [facility] Last Admin: 08/12/18 10:47 Dose: 50 mg Metformin HCl (Glucophage) 500 mg PO BIDWM [facility] Last Admin: 08/12/18 17:26 Dose: 500 mg Methylprednisolone (Solu-Medrol) 40 mg IVP BID [facility] Last Admin: 08/13/18 08:08 Dose: 40 mg Rifaximin (Xifaxan) 550 mg PO BID [facility]; Protocol Last Admin: 08/12/18 17:25 Dose: 550 mg Sitagliptin Phosphate (Januvia) 100 mg PO DAILY [facility] Last Admin: 08/12/18 10:45 Dose: 100 mg Tiotropium [place] (Spiriva) 18 mcg INH DAILY [facility] Last Admin: 08/12/18 10:46 Dose: Not Given - Labs Labs: 08/12/18 05:20 08/12/18 05:20 - Constitutional Appears: No Acute Distress - Head Exam Head Exam: ATRAUMATIC, NORMAL INSPECTION, NORMOCEPHALIC - Eye Exam Eye Exam: EOMI, Normal appearance, PERRL Pupil Exam: NORMAL ACCOMODATION, PERRL - ENT Exam ENT Exam: Mucous Membranes Moist, Normal Exam - Neck Exam Neck Exam: Full ROM, Normal Inspection. absent: Lymphadenopathy - Respiratory Exam Respiratory Exam: Decreased Breath Sounds, Prolonged Expiratory Phase, Rales, NORMAL BREATHING PATTERN - Cardiovascular Exam Cardiovascular Exam: REGULAR RHYTHM, +S1, +S2. absent: Murmur - GI/Abdominal Exam GI & Abdominal Exam: Soft, Normal Bowel Sounds. absent: Tenderness - Rectal Exam Rectal Exam: NORMAL INSPECTION - Extremities Exam Extremities Exam: Full ROM, Normal Capillary Refill, Normal Inspection. absent: Joint Swelling, Pedal Edema - Back Exam Back Exam: NORMAL INSPECTION - Neurological Exam Neurological Exam: Alert, Awake, CN II-XII Intact, Oriented x3 - Psychiatric Exam Psychiatric exam: Normal Affect, Normal Mood - Skin Skin Exam: Dry, Intact, Normal Color, Warm Assessment and Plan - Assessment and Plan (Free Text) Assessment: RESPIRATORY FAILURE CHF VALVULAR HEART DZ ACUTE ASTHMA HX OF PULMONARY HTN HTN Plan: CONTINUE CURRENT RX REPEAT CXR 02 SAT--99% ON NC O2
--- NOTE | 2018-08-13 09:03 | RAD ---
Date of service: 08/13/2018 PROCEDURE: CHEST RADIOGRAPH, 1 VIEW HISTORY: CHF COMPARISON: 08/10/2018 FINDINGS: LUNGS: There is severe pulmonary venous congestion. Worsening right pleural effusion. No pneumothorax or left pleural effusion. CARDIOVASCULAR: Persistent mild cardiomegaly. There are aortic atherosclerotic calcifications present. There is stable position of right-sided permanent pacing device. OSSEOUS STRUCTURES: Within normal limits for the patient's age. VISUALIZED UPPER ABDOMEN: Normal. OTHER FINDINGS: None. IMPRESSION: Congestive heart failure with worsening right pleural effusion.
[2018-08-13] MEDS: Tiotropium 18 mcg Cap For Inhalation INH SCH (10:01)
[2018-08-13] MEDS: diltiaZEM 120 mg/24 Hours CD Cap PO SCH (10:03)
[2018-08-13] MEDS: guaiFENesin DM 200 mg-20 mg/10 ml UD PO PRN (17:20)
--- NOTE | 2018-08-13 18:33 | CP.PCM.PN ---
Subjective - Date & Time of Evaluation Date of Evaluation: 08/13/18 Time of Evaluation: 10:00 - Subjective Subjective: pt seen and examined at bedside. no new complaints. breathing better Objective - Vital Signs/Intake and Output Vital Signs (last 24 hours): Temp Pulse Resp BP Pulse Ox 97.9 F 90 20 137/77 98 08/13/18 17:00 08/13/18 17:00 08/13/18 17:00 08/13/18 17:14 08/13/18 17:00 - Medications Medications: Current Medications Albuterol/Ipratropium (Duoneb 3 Mg/0.5 Mg (3 Ml) Ud) 3 ml INH RQ4 PRN PRN Reason: Shortness of Breath Last Admin: 08/09/18 17:34 Dose: 3 ml Anastrozole (Arimidex 1 Mg Tab) 1 mg PO DAILY [facility] Last Admin: 08/13/18 10:04 Dose: 1 mg Benzocaine/Menthol (Cepacol Sore Throat) 1 malu PO Q2 PRN PRN Reason: Sore Throat Last Admin: 08/07/18 21:45 Dose: 1 malu Calcium Acetate (Phoslo) 667 mg PO DAILY [facility] Last Admin: 08/13/18 10:02 Dose: 667 mg Dextrose (Dextrose 50% Inj) 0 ml IV STAT PRN; Protocol PRN Reason: Hypoglycemia Protocol Dextrose (Glutose 15) 0 gm PO ONCE PRN; Protocol PRN Reason: Hypoglycemia Protocol Diltiazem HCl (Cardizem Cd) 120 mg PO DAILY [facility] Last Admin: 08/13/18 10:03 Dose: 120 mg Ergocalciferol (Drisdol 50,000 Intl Units Cap) 1 cap PO QWK [facility] Escitalopram Oxalate (Lexapro) 20 mg PO DAILY [facility] Last Admin: 08/13/18 10:02 Dose: 20 mg Furosemide (Lasix) 40 mg IVP BID [facility] Last Admin: 08/13/18 17:14 Dose: 40 mg Glucagon (Glucagen Diagnostic Kit) 0 mg IM STAT PRN; Protocol PRN Reason: Hypoglycemia Protocol Guaifenesin/Dextromethorphan (Robitussin Dm) 10 ml PO Q6 PRN PRN Reason: Cough Last Admin: 08/13/18 17:20 Dose: 10 ml Insulin Detemir (Levemir) 15 units SC HS [facility] Last Admin: 08/12/18 21:46 Dose: 15 unit Insulin Human Lispro (Humalog) 10 units SC TIDAC [facility] Last Admin: 08/13/18 17:13 Dose: Not Given Lactulose (Enulose) 20 gm PO TID [facility] Last Admin: 08/13/18 17:13 Dose: Not Given Levothyroxine Sodium (Synthroid) 25 mcg PO DAILY@0630 [facility] Last Admin: 08/13/18 05:50 Dose: 25 mcg Losartan Potassium (Cozaar) 50 mg PO DAILY [facility] Last Admin: 08/13/18 10:01 Dose: 50 mg Metformin HCl (Glucophage) 500 mg PO BIDWM [facility] Last Admin: 08/13/18 17:14 Dose: 500 mg Rifaximin (Xifaxan) 550 mg PO BID [facility]; Protocol Last Admin: 08/13/18 17:14 Dose: 550 mg Sitagliptin Phosphate (Januvia) 100 mg PO DAILY [facility] Last Admin: 08/13/18 10:02 Dose: 100 mg Tiotropium [place] (Spiriva) 18 mcg INH DAILY [facility] Last Admin: 08/13/18 10:01 Dose: 18 mcg - Labs Labs: 08/12/18 05:20 08/12/18 05:20 - Constitutional Appears: Non-toxic, No Acute Distress - Head Exam Head Exam: NORMAL INSPECTION - Eye Exam Eye Exam: Normal appearance - Neck Exam Neck Exam: Normal Inspection - Respiratory Exam Respiratory Exam: Decreased Breath Sounds, NORMAL BREATHING PATTERN - Cardiovascular Exam Cardiovascular Exam: +S1, +S2 - Neurological Exam Neurological Exam: Alert, Awake - Psychiatric Exam Psychiatric exam: Normal Affect, Normal Mood - Skin Skin Exam: Dry, Normal Color, Warm Assessment and Plan - Assessment and Plan (Free Text) Assessment: available diagnostic data reviewed cont present management monitor labs/vitals pulm/cardio following rest of plan as ordered
[2018-08-13] MEDS: Insulin Detemir 100 Units/ml Inj SC SCH (22:36)
--- NOTE | 2018-08-13 23:14 | CP.PCM.PN ---
Subjective - Date & Time of Evaluation Date of Evaluation: 08/12/17 Time of Evaluation: 11:00 - Subjective Subjective: pt seen and examined at bedside. no new complaints. on bipap vital signs stable available diagnostic data reviewed Objective - Additional Findings Additional findings: - Constitutional Appears: Non-toxic, No Acute Distress - Head Exam Head Exam: NORMAL INSPECTION - Eye Exam Eye Exam: Normal appearance - Neck Exam Neck Exam: Normal Inspection - Respiratory Exam Respiratory Exam: Decreased Breath Sounds, NORMAL BREATHING PATTERN - Cardiovascular Exam Cardiovascular Exam: +S1, +S2 - Neurological Exam Neurological Exam: Alert, Awake - Psychiatric Exam Psychiatric exam: Normal Affect, Normal Mood - Skin Skin Exam: Dry, Normal Color, Warm Assessment and Plan - Assessment and Plan (Free Text) Plan: available diagnostic data reviewed cont present management monitor labs/vitals pulm/cardio following rest of plan as ordered
--- NOTE | 2018-08-13 23:17 | CP.PCM.PN ---
Subjective - Date & Time of Evaluation Date of Evaluation: 08/11/18 Time of Evaluation: 11:00 - Subjective Subjective: pt seen and examined at bedside. no new complaints. on bipap vital signs stable Objective - Constitutional Appears: Non-toxic, No Acute Distress - Head Exam Head Exam: NORMAL INSPECTION - Eye Exam Eye Exam: Normal appearance - Neck Exam Neck Exam: Normal Inspection - Respiratory Exam Respiratory Exam: Decreased Breath Sounds, NORMAL BREATHING PATTERN - Cardiovascular Exam Cardiovascular Exam: +S1, +S2 - Neurological Exam Neurological Exam: Alert, Awake - Psychiatric Exam Psychiatric exam: Normal Affect, Normal Mood - Skin Skin Exam: Dry, Normal Color, Warm Assessment and Plan - Assessment and Plan (Free Text) Plan: available diagnostic data reviewed cont present management monitor labs/vitals pulm/cardio following rest of plan as ordered
--- NOTE | 2018-08-13 23:19 | CP.PCM.PN ---
Subjective - Date & Time of Evaluation Date of Evaluation: 08/10/18 Time of Evaluation: 11:00 - Subjective Subjective: pt seen and examined at bedside. on bipap vital signs stable Objective - Constitutional Appears: Non-toxic, No Acute Distress - Head Exam Head Exam: NORMAL INSPECTION - Eye Exam Eye Exam: Normal appearance - Neck Exam Neck Exam: Normal Inspection - Respiratory Exam Respiratory Exam: Decreased Breath Sounds, NORMAL BREATHING PATTERN - Cardiovascular Exam Cardiovascular Exam: +S1, +S2 - Skin Skin Exam: Dry, Normal Color, Warm Assessment and Plan - Assessment and Plan (Free Text) Plan: available diagnostic data reviewed cont present management monitor labs/vitals pulm/cardio following rest of plan as ordered
[2018-08-14 05:51] LABS: MEAN CELL VOLUME 97.4 fl (81.0-99.0); MEAN CORPUSCULAR HEMOGLOBIN 32.3 pg (27.0-31.0); MEAN CORPUSCULAR HGB CONC 33.1 g/dL (33.0-37.0); RBC 4.64 Mil/uL (3.80-5.20); RED CELL DISTRIBUTION WIDTH 13.6 % (11.5-14.5); WHITE BLOOD COUNT 16.1 K/uL (4.8-10.8)
[2018-08-14] MEDS: Levothyroxine 25 MCG TAB PO SCH (06:12)
[2018-08-14 07:01] LABS: ALB/GLOB RATIO 0.8 (1.0-2.1); ALBUMIN 3.2 g/dL (3.5-5.0); CALCIUM 10.4 mg/dL (8.4-10.2)
[2018-08-14] MEDS: guaiFENesin DM 200 mg-20 mg/10 ml UD PO PRN ×3 (08:47→21:37)
[2018-08-14] MEDS: Insulin Lispro (humaLOG) 100 Units/ml Inj SC SCH ×3 (08:49→17:08)
[2018-08-14] MEDS: diltiaZEM 120 mg/24 Hours CD Cap PO SCH (08:50)
[2018-08-14] MEDS: Tiotropium 18 mcg Cap For Inhalation INH SCH (08:52)
--- NOTE | 2018-08-14 09:12 | CP.PCM.PN ---
Subjective - Date & Time of Evaluation Date of Evaluation: 08/14/18 Time of Evaluation: 09:13 - Subjective Subjective: AWAKE AND ALERT ON NC O2--SAT--98% SOB IMPROVED STILL COUGHING Objective - Vital Signs/Intake and Output Vital Signs (last 24 hours): Temp Pulse Resp BP Pulse Ox 97.5 F L 94 H 18 147/80 98 08/14/18 07:51 08/14/18 08:52 08/14/18 07:51 08/14/18 08:52 08/14/18 07:51 - Medications Medications: Current Medications Albuterol/Ipratropium (Duoneb 3 Mg/0.5 Mg (3 Ml) Ud) 3 ml INH RQ4 PRN PRN Reason: Shortness of Breath Last Admin: 08/09/18 17:34 Dose: 3 ml Anastrozole (Arimidex 1 Mg Tab) 1 mg PO DAILY [facility] Last Admin: 08/14/18 08:54 Dose: 1 mg Benzocaine/Menthol (Cepacol Sore Throat) 1 malu PO Q2 PRN PRN Reason: Sore Throat Last Admin: 08/07/18 21:45 Dose: 1 malu Calcium Acetate (Phoslo) 667 mg PO DAILY [facility] Last Admin: 08/14/18 08:50 Dose: 667 mg Dextrose (Dextrose 50% Inj) 0 ml IV STAT PRN; Protocol PRN Reason: Hypoglycemia Protocol Dextrose (Glutose 15) 0 gm PO ONCE PRN; Protocol PRN Reason: Hypoglycemia Protocol Diltiazem HCl (Cardizem Cd) 120 mg PO DAILY [facility] Last Admin: 08/14/18 08:50 Dose: 120 mg Ergocalciferol (Drisdol 50,000 Intl Units Cap) 1 cap PO QWK [facility] Escitalopram Oxalate (Lexapro) 20 mg PO DAILY [facility] Last Admin: 08/14/18 08:53 Dose: 20 mg Furosemide (Lasix) 40 mg IVP BID [facility] Last Admin: 08/14/18 08:48 Dose: 40 mg Glucagon (Glucagen Diagnostic Kit) 0 mg IM STAT PRN; Protocol PRN Reason: Hypoglycemia Protocol Guaifenesin/Dextromethorphan (Robitussin Dm) 10 ml PO Q6 PRN PRN Reason: Cough Last Admin: 08/14/18 08:47 Dose: 10 ml Insulin Detemir (Levemir) 15 units SC HS [facility] Last Admin: 08/13/18 22:36 Dose: 15 unit Insulin Human Lispro (Humalog) 10 units SC TIDAC [facility] Last Admin: 08/14/18 08:49 Dose: 10 units Lactulose (Enulose) 20 gm PO TID [facility] Last Admin: 08/14/18 08:53 Dose: Not Given Levothyroxine Sodium (Synthroid) 25 mcg PO DAILY@0630 [facility] Last Admin: 08/14/18 06:12 Dose: 25 mcg Losartan Potassium (Cozaar) 50 mg PO DAILY [facility] Last Admin: 08/14/18 08:52 Dose: 50 mg Metformin HCl (Glucophage) 500 mg PO BIDWM [facility] Last Admin: 08/14/18 08:53 Dose: 500 mg Rifaximin (Xifaxan) 550 mg PO BID [facility]; Protocol Last Admin: 08/14/18 08:50 Dose: 550 mg Sitagliptin Phosphate (Januvia) 100 mg PO DAILY [facility] Last Admin: 08/14/18 08:50 Dose: 100 mg Tiotropium [place] (Spiriva) 18 mcg INH DAILY [facility] Last Admin: 08/14/18 08:52 Dose: 18 mcg - Labs Labs: 08/14/18 04:55 08/14/18 04:55 - Constitutional Appears: No Acute Distress - Head Exam Head Exam: ATRAUMATIC, NORMAL INSPECTION, NORMOCEPHALIC - Eye Exam Eye Exam: EOMI, Normal appearance, PERRL Pupil Exam: NORMAL ACCOMODATION, PERRL - ENT Exam ENT Exam: Mucous Membranes Moist, Normal Exam - Neck Exam Neck Exam: Full ROM, Normal Inspection. absent: Lymphadenopathy - Respiratory Exam Respiratory Exam: Decreased Breath Sounds, Prolonged Expiratory Phase, Rales Additional comments: ON O2 - Cardiovascular Exam Cardiovascular Exam: Irregular Rhythm, +S1, +S2. absent: Murmur - GI/Abdominal Exam GI & Abdominal Exam: Soft, Normal Bowel Sounds. absent: Tenderness - Rectal Exam Rectal Exam: NORMAL INSPECTION - Extremities Exam Extremities Exam: Full ROM, Normal Capillary Refill, Normal Inspection. absent: Joint Swelling, Pedal Edema - Back Exam Back Exam: NORMAL INSPECTION - Neurological Exam Neurological Exam: Alert, Awake, CN II-XII Intact, Normal Gait, Oriented x3 - Psychiatric Exam Psychiatric exam: Normal Affect, Normal Mood - Skin Skin Exam: Dry, Intact, Normal Color, Warm Assessment and Plan - Assessment and Plan (Free Text) Assessment: CHF--CLINICALLY IMPROVING HYPERCAPNEIC RESPIRATORY FAILURE HX OF ASTHMA/COPD PULMONARY HTN VALVULAR HEART DZ Plan: CONTINUE CURRENT RX MAY BENEFIT FROM SUBACUTE CARE PRIOR TO D/C HOME
[2018-08-14] MEDS ORDERED: methylPREDNISolone 40 MG in Sodium Chloride 0.9% 50 ML IV SCH (11:30)
[2018-08-14] MEDS: Albuterol-Ipratrop 3 mg / 0.5 (3 ml) UD INH PRN ×2 (13:44→18:17)
--- NOTE | 2018-08-14 15:43 | RAD ---
Date of service: 08/14/2018 HISTORY: re evaluate pleural effusion COMPARISON: Comparison chest dated 08/14/2018 FINDINGS: Note that both lung apices are partially obscured by overlying mandible and facial soft tissue artifact LUNGS: There appears to have been further opacification of the right hemithorax likely representing some combination of large effusion with atelectasis and/or infiltrate.. Mild left basilar atelectasis and/or developing infiltrate. PLEURA: As above. No pneumothorax apparent. CARDIOVASCULAR: Mild aortic atherosclerotic calcification present. Normal cardiac size. No pulmonary vascular congestion. OSSEOUS STRUCTURES: No significant abnormalities. VISUALIZED UPPER ABDOMEN: Normal. OTHER FINDINGS: None. IMPRESSION: Further opacification right hemithorax likely representing some combination of large effusion with atelectasis and/or infiltrate. Minor left basilar atelectasis and or infiltrate
[2018-08-14] MEDS: Benzocaine/Menthol (Cepacol) Lozenge PO PRN (17:18)
[2018-08-14] MEDS: Insulin Detemir 100 Units/ml Inj SC SCH (21:39)
[2018-08-15] MEDS: Levothyroxine 25 MCG TAB PO SCH (06:19)
[2018-08-15] MEDS: diltiaZEM 120 mg/24 Hours CD Cap PO SCH (08:13)
[2018-08-15] MEDS: Tiotropium 18 mcg Cap For Inhalation INH SCH (08:14)
[2018-08-15] MEDS: Insulin Lispro (humaLOG) 100 Units/ml Inj SC SCH ×3 (08:18→16:56)
[2018-08-15] MEDS ORDERED: MethylPREDNISolone 40 mg Vial IVP SCH (09:00)
--- NOTE | 2018-08-15 09:21 | CP.PCM.PN ---
Subjective - Date & Time of Evaluation Date of Evaluation: 08/15/18 Time of Evaluation: 09:23 - Subjective Subjective: STILL DYSPNEIC AT REST AUDIBLE RALES NOTED Objective - Vital Signs/Intake and Output Vital Signs (last 24 hours): Temp Pulse Resp BP Pulse Ox 97.2 F L 93 H 18 142/69 96 08/15/18 07:56 08/15/18 08:15 08/15/18 07:56 08/15/18 08:19 08/15/18 07:56 Intake and Output: 08/15/18 08/15/18 06:59 18:59 Intake Total 360 Balance 360 - Medications Medications: Current Medications Albuterol/Ipratropium (Duoneb 3 Mg/0.5 Mg (3 Ml) Ud) 3 ml INH RQ4 PRN PRN Reason: Shortness of Breath Last Admin: 08/14/18 18:17 Dose: 3 ml Anastrozole (Arimidex 1 Mg Tab) 1 mg PO DAILY [facility] Last Admin: 08/15/18 08:17 Dose: 1 mg Benzocaine/Menthol (Cepacol Sore Throat) 1 malu PO Q2 PRN PRN Reason: Sore Throat Last Admin: 08/14/18 17:18 Dose: 1 malu Calcium Acetate (Phoslo) 667 mg PO DAILY [facility] Last Admin: 08/15/18 08:15 Dose: 667 mg Dextrose (Dextrose 50% Inj) 0 ml IV STAT PRN; Protocol PRN Reason: Hypoglycemia Protocol Dextrose (Glutose 15) 0 gm PO ONCE PRN; Protocol PRN Reason: Hypoglycemia Protocol Diltiazem HCl (Cardizem Cd) 120 mg PO DAILY [facility] Last Admin: 08/15/18 08:13 Dose: 120 mg Ergocalciferol (Drisdol 50,000 Intl Units Cap) 1 cap PO QWK [facility] Last Admin: 08/15/18 08:15 Dose: 1 cap Escitalopram Oxalate (Lexapro) 20 mg PO DAILY [facility] Last Admin: 08/15/18 08:15 Dose: 20 mg Furosemide (Lasix) 40 mg IVP BID [facility] Last Admin: 08/15/18 08:19 Dose: 40 mg Glucagon (Glucagen Diagnostic Kit) 0 mg IM STAT PRN; Protocol PRN Reason: Hypoglycemia Protocol Guaifenesin/Dextromethorphan (Robitussin Dm) 10 ml PO Q6 PRN PRN Reason: Cough Last Admin: 08/14/18 21:37 Dose: 10 ml Insulin Detemir (Levemir) 15 units SC HS [facility] Last Admin: 08/14/18 21:39 Dose: 15 unit Insulin Human Lispro (Humalog) 10 units SC TIDAC [facility] Last Admin: 08/15/18 08:18 Dose: 10 units Lactulose (Enulose) 20 gm PO TID [facility] Last Admin: 08/15/18 08:16 Dose: 20 gm Levothyroxine Sodium (Synthroid) 25 mcg PO DAILY@0630 [facility] Last Admin: 08/15/18 06:19 Dose: 25 mcg Losartan Potassium (Cozaar) 50 mg PO DAILY [facility] Last Admin: 08/15/18 08:15 Dose: 50 mg Metformin HCl (Glucophage) 500 mg PO BIDWM [facility] Last Admin: 08/15/18 08:14 Dose: 500 mg Methylprednisolone (Solu-Medrol) 40 mg IVP DAILY [facility] Last Admin: 08/15/18 08:14 Dose: 40 mg Rifaximin (Xifaxan) 550 mg PO BID [facility]; Protocol Last Admin: 08/15/18 08:15 Dose: 550 mg Sitagliptin Phosphate (Januvia) 100 mg PO DAILY [facility] Last Admin: 08/15/18 08:15 Dose: 100 mg Tiotropium [place] (Spiriva) 18 mcg INH DAILY [facility] Last Admin: 08/15/18 08:14 Dose: 18 mcg - Labs Labs: 08/14/18 04:55 08/14/18 04:55 - Constitutional Appears: Chronically Ill - Head Exam Head Exam: ATRAUMATIC, NORMAL INSPECTION, NORMOCEPHALIC - Eye Exam Eye Exam: EOMI, Normal appearance, PERRL Pupil Exam: NORMAL ACCOMODATION, PERRL - ENT Exam ENT Exam: Mucous Membranes Moist, Normal Exam - Neck Exam Neck Exam: Full ROM, Normal Inspection. absent: Lymphadenopathy - Respiratory Exam Respiratory Exam: Decreased Breath Sounds, Prolonged Expiratory Phase, Rales, NORMAL BREATHING PATTERN - Cardiovascular Exam Cardiovascular Exam: REGULAR RHYTHM, +S1, +S2. absent: Murmur - GI/Abdominal Exam GI & Abdominal Exam: Soft, Normal Bowel Sounds. absent: Tenderness - Rectal Exam Rectal Exam: NORMAL INSPECTION - Extremities Exam Extremities Exam: Full ROM, Normal Capillary Refill, Normal Inspection. absent: Joint Swelling, Pedal Edema - Back Exam Back Exam: NORMAL INSPECTION - Neurological Exam Neurological Exam: Alert, Awake, CN II-XII Intact, Oriented x3 - Psychiatric Exam Psychiatric exam: Flat Affect - Skin Skin Exam: Dry, Intact, Normal Color, Warm Assessment and Plan - Assessment and Plan (Free Text) Assessment: RESPIRATORY FAILURE CHF PLEURAL EFFUSION VALVULAR HEART DZ Plan: WILL NEED THOARCENTESES FOR WORSENING PLEURAL EFFUSION
--- NOTE | 2018-08-15 09:49 | CP.PCM.PN ---
Subjective - Date & Time of Evaluation Date of Evaluation: 08/15/18 Time of Evaluation: 11:00 - Subjective Subjective: patient seen and examined at bedside. Interim events noted available diagnostic data reviewed Objective Vital Signs Stable - Constitutional Appears: Non-toxic, No Acute Distress - Head Exam Head Exam: NORMAL INSPECTION - Respiratory Exam Respiratory Exam: decreased breath sounds - Cardiovascular Exam Cardiovascular Exam: +S1, +S2 - GI/Abdominal Exam GI & Abdominal Exam: Soft - Neurological Exam Neurological Exam: Alert, Awake - Psychiatric Exam Psychiatric exam: Normal Affect, Normal Mood - Skin Skin Exam: Normal Color, Warm Assessment and Plan monitor vitals monitor labs Cont meds Cont tx thoracentesis today consultants appreciated input rest of plan as ordered
[2018-08-15 12:11] LABS: INR 1.1
[2018-08-15] MEDS ORDERED: Lidocaine 1% Inj (20ml) ONE (15:10)
--- NOTE | 2018-08-15 15:25 | PCM.SURG1 ---
Surgeon's Initial Post Op Note - Surgeon's Notes Surgeon: Erik Ramirez MD [place] Program Director: NONE Type of Anesthesia: Local Pre-Operative Diagnosis: Right pleural effusion Operative Findings: US showed large right effusion Post-Operative Diagnosis: Right pleural effusion Operation Performed: US guided right thoracentesis Specimen/Specimens Removed: 1.45 liters of straw colored fluid Estimated Blood Loss: EBL {In ML}: 0 Blood Products Given: N/A Drains Used: No Drains Post-Op Condition: Fair Date of Surgery/Procedure: 08/15/18 Time of Surgery/Procedure: 15:20
--- NOTE | 2018-08-15 16:12 | RAD ---
Date of service: 08/15/2018 PROCEDURE: CHEST RADIOGRAPH, 1 VIEW HISTORY: Status post right thoracentesis COMPARISON: Multiple serial examinations preceding the most recent study: August 14, 2018. FINDINGS: LUNGS: Interval improvement in pulmonary vascular congestion. PLEURA: Pleural effusions have diminished. CARDIOVASCULAR: Cardiomegaly remains. Position/ configuration of pacemaker device: Satisfactory. Atherosclerotic calcifications identified primarily aortic arch. Normal. OSSEOUS STRUCTURES: No significant abnormalities. VISUALIZED UPPER ABDOMEN: Normal. OTHER FINDINGS: None. IMPRESSION: Improving and presumed cardiogenic pulmonary edema/CHF.
--- NOTE | 2018-08-15 16:15 | CP.PCM.PN ---
Subjective - Date & Time of Evaluation Date of Evaluation: 08/14/18 Time of Evaluation: 11:00 - Subjective Subjective: patient seen and examined at bedside. Interim events noted available diagnostic data reviewed Objective Vital Signs Stable - Constitutional Appears: Non-toxic, No Acute Distress - Head Exam Head Exam: NORMAL INSPECTION - Respiratory Exam Respiratory Exam: decreased breath sounds - Cardiovascular Exam Cardiovascular Exam: +S1, +S2 - GI/Abdominal Exam GI & Abdominal Exam: Soft - Neurological Exam Neurological Exam: Alert, Awake - Psychiatric Exam Psychiatric exam: Normal Affect, Normal Mood - Skin Skin Exam: Normal Color, Warm Assessment and Plan monitor vitals monitor labs Cont meds Cont tx CXR, possibly thoracentesis tomorrow for worsening pleural effusion consultants appreciated input rest of plan as ordered
[2018-08-15] MEDS: Proshield Plus GEL TOP SCH (16:55)
[2018-08-15] MEDS: Insulin Detemir 100 Units/ml Inj SC SCH (21:47)
[2018-08-16] MEDS: Proshield Plus GEL TOP SCH ×3 (00:56→17:04)
[2018-08-16] MEDS: Albuterol-Ipratrop 3 mg / 0.5 (3 ml) UD INH PRN (01:14)
[2018-08-16] MEDS: Levothyroxine 25 MCG TAB PO SCH (06:20)
[2018-08-16] MEDS: Insulin Lispro (humaLOG) 100 Units/ml Inj SC SCH ×3 (08:00→17:03)
--- NOTE | 2018-08-16 08:29 | CP.PCM.PN ---
Subjective - Date & Time of Evaluation Date of Evaluation: 08/16/18 Time of Evaluation: 08:29 - Subjective Subjective: SOB IMPROVED--S/P THORACENTESES AWAKE AND ALERT Objective - Vital Signs/Intake and Output Vital Signs (last 24 hours): Temp Pulse Resp BP Pulse Ox 97.4 F L 96 H 20 135/68 96 08/16/18 08:00 08/16/18 08:00 08/16/18 08:00 08/16/18 08:00 08/16/18 08:00 - Medications Medications: Current Medications Albuterol/Ipratropium (Duoneb 3 Mg/0.5 Mg (3 Ml) Ud) 3 ml INH RQ4 PRN PRN Reason: Shortness of Breath Last Admin: 08/16/18 01:14 Dose: 3 ml Anastrozole (Arimidex 1 Mg Tab) 1 mg PO DAILY [facility] Last Admin: 08/15/18 08:17 Dose: 1 mg Benzocaine/Menthol (Cepacol Sore Throat) 1 malu PO Q2 PRN PRN Reason: Sore Throat Last Admin: 08/14/18 17:18 Dose: 1 malu Calcium Acetate (Phoslo) 667 mg PO DAILY [facility] Last Admin: 08/15/18 08:15 Dose: 667 mg Dextrose (Dextrose 50% Inj) 0 ml IV STAT PRN; Protocol PRN Reason: Hypoglycemia Protocol Dextrose (Glutose 15) 0 gm PO ONCE PRN; Protocol PRN Reason: Hypoglycemia Protocol Diltiazem HCl (Cardizem Cd) 120 mg PO DAILY [facility] Last Admin: 08/15/18 08:13 Dose: 120 mg Dimethicone (Proshield Plus Skin Protectant) 1 applic TOP Q8 [facility] Last Admin: 08/16/18 00:56 Dose: 1 applic Ergocalciferol (Drisdol 50,000 Intl Units Cap) 1 cap PO QWK [facility] Last Admin: 08/15/18 08:15 Dose: 1 cap Escitalopram Oxalate (Lexapro) 20 mg PO DAILY [facility] Last Admin: 08/15/18 08:15 Dose: 20 mg Furosemide (Lasix) 40 mg IVP BID [facility] Last Admin: 08/15/18 16:56 Dose: 40 mg Glucagon (Glucagen Diagnostic Kit) 0 mg IM STAT PRN; Protocol PRN Reason: Hypoglycemia Protocol Guaifenesin/Dextromethorphan (Robitussin Dm) 10 ml PO Q6 PRN PRN Reason: Cough Last Admin: 08/14/18 21:37 Dose: 10 ml Insulin Detemir (Levemir) 15 units SC HS [facility] Last Admin: 08/15/18 21:47 Dose: 15 unit Insulin Human Lispro (Humalog) 10 units SC TIDAC [facility] Last Admin: 08/15/18 16:56 Dose: Not Given Lactulose (Enulose) 20 gm PO TID [facility] Last Admin: 08/15/18 16:46 Dose: Not Given Levothyroxine Sodium (Synthroid) 25 mcg PO DAILY@0630 [facility] Last Admin: 08/16/18 06:20 Dose: 25 mcg Losartan Potassium (Cozaar) 50 mg PO DAILY [facility] Last Admin: 08/15/18 08:15 Dose: 50 mg Metformin HCl (Glucophage) 500 mg PO BIDWM [facility] Last Admin: 08/15/18 18:10 Dose: Not Given Methylprednisolone (Solu-Medrol) 40 mg IVP DAILY [facility] Last Admin: 08/15/18 08:14 Dose: 40 mg Rifaximin (Xifaxan) 550 mg PO BID [facility]; Protocol Last Admin: 08/15/18 18:11 Dose: Not Given Sitagliptin Phosphate (Januvia) 100 mg PO DAILY [facility] Last Admin: 08/15/18 08:15 Dose: 100 mg Tiotropium [place] (Spiriva) 18 mcg INH DAILY [facility] Last Admin: 08/15/18 08:14 Dose: 18 mcg - Labs Labs: 08/14/18 04:55 08/14/18 04:55 PT 13.0 Seconds (9.8-13.1) 08/15/18 11:50 INR 1.1 08/15/18 11:50 - Constitutional Appears: Chronically Ill - Head Exam Head Exam: ATRAUMATIC, NORMAL INSPECTION, NORMOCEPHALIC - Eye Exam Eye Exam: EOMI, Normal appearance, PERRL Pupil Exam: NORMAL ACCOMODATION, PERRL - ENT Exam ENT Exam: Mucous Membranes Moist, Normal Exam - Neck Exam Neck Exam: Full ROM, Normal Inspection. absent: Lymphadenopathy - Respiratory Exam Respiratory Exam: Prolonged Expiratory Phase, Rales, NORMAL BREATHING PATTERN - Cardiovascular Exam Cardiovascular Exam: Irregular Rhythm, +S1, +S2. absent: Murmur - GI/Abdominal Exam GI & Abdominal Exam: Soft, Normal Bowel Sounds. absent: Tenderness - Rectal Exam Rectal Exam: NORMAL INSPECTION - Extremities Exam Extremities Exam: Full ROM, Normal Capillary Refill, Normal Inspection. absent: Joint Swelling, Pedal Edema - Back Exam Back Exam: NORMAL INSPECTION - Neurological Exam Neurological Exam: Alert, Awake, CN II-XII Intact, Oriented x3 - Psychiatric Exam Psychiatric exam: Normal Affect, Normal Mood - Skin Skin Exam: Dry, Intact, Normal Color, Warm Assessment and Plan - Assessment and Plan (Free Text) Assessment: CHF WITH PLEURAL EFFUSION IMPROVED COPD/ASTHMA VALVULAR HEART DZ Plan: CONTINUE CURRENT RX
[2018-08-16] MEDS: diltiaZEM 120 mg/24 Hours CD Cap PO SCH (09:00)
[2018-08-16 10:19] LABS: HEMOGLOBIN 15.5 g/dL (12.0-16.0); MEAN CELL VOLUME 96.6 fl (81.0-99.0); MEAN CORPUSCULAR HGB CONC 33.2 g/dL (33.0-37.0); RBC 4.85 Mil/uL (3.80-5.20); RED CELL DISTRIBUTION WIDTH 13.7 % (11.5-14.5); WHITE BLOOD COUNT 28.3 K/uL (4.8-10.8)
[2018-08-16 10:44] LABS: ALB/GLOB RATIO 0.8 (1.0-2.1); ALBUMIN 3.1 g/dL (3.5-5.0); CALCIUM 10.8 mg/dL (8.4-10.2)
--- NOTE | 2018-08-16 11:19 | CP.PCM.PN ---
Subjective - Date & Time of Evaluation Date of Evaluation: 08/16/18 Time of Evaluation: 08:00 - Subjective Subjective: patient seen and examined at bedside. Interim events noted available diagnostic data reviewed Objective Vital Signs Stable - Constitutional Appears: Non-toxic, No Acute Distress - Head Exam Head Exam: NORMAL INSPECTION - Respiratory Exam Respiratory Exam: decreased breath sounds - Cardiovascular Exam Cardiovascular Exam: +S1, +S2 - GI/Abdominal Exam GI & Abdominal Exam: Soft - Neurological Exam Neurological Exam: Alert, Awake - Psychiatric Exam Psychiatric exam: Normal Affect, Normal Mood - Skin Skin Exam: Normal Color, Warm Assessment and Plan monitor vitals monitor labs Cont meds Cont tx wbc spike, trend consultants appreciated input rest of plan as ordered
[2018-08-16] MEDS: Tiotropium 18 mcg Cap For Inhalation INH SCH (12:24)
--- NOTE | 2018-08-16 14:26 | US ---
PROCEDURE: Date of procedure: 08/15/2018 Procedure: 1. Ultrasound-guided Right thoracentesis, CPT 40743 Medications: 6cc 1% Lidocaine HISTORY: Right pleural effusion, shortness of breath TECHNIQUE: Following informed consent ,the Patients' right chest was marked. Procedure time-out was called, and the patient was placed in the sitting position and limited ultrasound showed a large right effusion. The patient's right back was prepped and draped in the usual sterile fashion. After the skin was anesthetized with lidocaine, a drainage catheter was advanced under ultrasound guidance into the pleural space. Ultrasound-guided thoracentesis was performed. A total of 1450 cubic centimeters of straw-colored fluid removed without complication. A Xeroform dressing was applied. IMPRESSION: Ultrasound guided Right thoracentesis. There were no immediate complications.
[2018-08-16] MEDS: Insulin Detemir 100 Units/ml Inj SC SCH (21:54)
[2018-08-17] MEDS: Proshield Plus GEL TOP SCH ×4 (01:06→18:16)
[2018-08-17 05:48] LABS: HEMOGLOBIN 15.2 g/dL (12.0-16.0); MEAN CORPUSCULAR HEMOGLOBIN 32.2 pg (27.0-31.0); MEAN CORPUSCULAR HGB CONC 33.5 g/dL (33.0-37.0); RBC 4.74 Mil/uL (3.80-5.20); RED CELL DISTRIBUTION WIDTH 13.8 % (11.5-14.5); WHITE BLOOD COUNT 24.1 K/uL (4.8-10.8)
[2018-08-17 06:04] LABS: CALCIUM 11.6 mg/dL (8.4-10.2)
[2018-08-17] MEDS: Levothyroxine 25 MCG TAB PO SCH (06:07)
[2018-08-17] MEDS: Insulin Lispro (humaLOG) 100 Units/ml Inj SC SCH ×3 (08:00→18:17)
[2018-08-17] MEDS: diltiaZEM 120 mg/24 Hours CD Cap PO SCH (09:59)
[2018-08-17] MEDS: Tiotropium 18 mcg Cap For Inhalation INH SCH (10:02)
--- NOTE | 2018-08-17 11:55 | CP.PCM.PN ---
Subjective - Date & Time of Evaluation Date of Evaluation: 08/17/18 Time of Evaluation: 11:55 - Subjective Subjective: MORE LETHARGIC TODAY Objective - Vital Signs/Intake and Output Vital Signs (last 24 hours): Temp Pulse Resp BP Pulse Ox 97.2 F L 112 H 20 131/63 96 08/17/18 11:42 08/17/18 11:42 08/17/18 11:42 08/17/18 11:42 08/17/18 11:42 - Medications Medications: Current Medications Albuterol/Ipratropium (Duoneb 3 Mg/0.5 Mg (3 Ml) Ud) 3 ml INH RQ4 PRN PRN Reason: Shortness of Breath Last Admin: 08/16/18 01:14 Dose: 3 ml Anastrozole (Arimidex 1 Mg Tab) 1 mg PO DAILY [facility] [place] Last Admin: 08/16/18 09:00 Dose: 1 mg Benzocaine/Menthol (Cepacol Sore Throat) 1 malu PO Q2 PRN PRN Reason: Sore Throat Last Admin: 08/14/18 17:18 Dose: 1 malu Calcium Acetate (Phoslo) 667 mg PO DAILY [facility] [place] Last Admin: 08/17/18 09:59 Dose: 667 mg Dextrose (Dextrose 50% Inj) 0 ml IV STAT PRN; Protocol PRN Reason: Hypoglycemia Protocol Dextrose (Glutose 15) 0 gm PO ONCE PRN; Protocol PRN Reason: Hypoglycemia Protocol Diltiazem HCl (Cardizem Cd) 120 mg PO DAILY [facility] Last Admin: 08/17/18 09:59 Dose: 120 mg Dimethicone (Proshield Plus Skin Protectant) 1 applic TOP Q8 [facility] Last Admin: 08/17/18 10:02 Dose: 1 applic Ergocalciferol (Drisdol 50,000 Intl Units Cap) 1 cap PO QWK [facility] Last Admin: 08/15/18 08:15 Dose: 1 cap Escitalopram Oxalate (Lexapro) 20 mg PO DAILY [facility] Last Admin: 08/17/18 10:01 Dose: Not Given Furosemide (Lasix) 40 mg IVP DAILY [facility] Last Admin: 08/17/18 09:55 Dose: 40 mg Glucagon (Glucagen Diagnostic Kit) 0 mg IM STAT PRN; Protocol PRN Reason: Hypoglycemia Protocol Guaifenesin/Dextromethorphan (Robitussin Dm) 10 ml PO Q6 PRN PRN Reason: Cough Last Admin: 08/14/18 21:37 Dose: 10 ml Insulin Detemir (Levemir) 15 units SC HS [facility] [place] Last Admin: 08/16/18 21:54 Dose: 15 unit Insulin Human Lispro (Humalog) 10 units SC TIDAC [facility] [place] Last Admin: 08/17/18 08:00 Dose: Not Given Lactulose (Enulose) 20 gm PO TID [facility] Last Admin: 08/17/18 09:56 Dose: 20 gm Levothyroxine Sodium (Synthroid) 25 mcg PO DAILY@0630 [facility] Last Admin: 08/17/18 06:07 Dose: 25 mcg Losartan Potassium (Cozaar) 50 mg PO DAILY [facility] Last Admin: 08/17/18 10:03 Dose: 50 mg Metformin HCl (Glucophage) 500 mg PO BIDWM [facility] [place] Last Admin: 08/17/18 09:01 Dose: 500 mg Rifaximin (Xifaxan) 550 mg PO BID [facility] [place]; Protocol Last Admin: 08/17/18 09:59 Dose: 550 mg Sitagliptin Phosphate (Januvia) 100 mg PO DAILY [facility] Last Admin: 08/17/18 10:01 Dose: 100 mg Tiotropium [place] (Spiriva) 18 mcg INH DAILY [facility] Last Admin: 08/17/18 10:02 Dose: Not Given - Labs Labs: 08/17/18 04:25 08/17/18 04:25 PT 13.0 Seconds (9.8-13.1) 08/15/18 11:50 INR 1.1 08/15/18 11:50 - Constitutional Appears: Chronically Ill - Head Exam Head Exam: ATRAUMATIC, NORMAL INSPECTION, NORMOCEPHALIC - Eye Exam Eye Exam: EOMI, Normal appearance, PERRL Pupil Exam: NORMAL ACCOMODATION, PERRL - ENT Exam ENT Exam: Mucous Membranes Moist, Normal Exam - Neck Exam Neck Exam: Full ROM, Normal Inspection. absent: Lymphadenopathy - Respiratory Exam Respiratory Exam: Decreased Breath Sounds, Prolonged Expiratory Phase, NORMAL BREATHING PATTERN - Cardiovascular Exam Cardiovascular Exam: REGULAR RHYTHM, +S1, +S2. absent: Murmur - GI/Abdominal Exam GI & Abdominal Exam: Soft, Normal Bowel Sounds. absent: Tenderness - Rectal Exam Rectal Exam: NORMAL INSPECTION - Extremities Exam Extremities Exam: Full ROM, Normal Capillary Refill, Normal Inspection. absent: Joint Swelling, Pedal Edema - Back Exam Back Exam: NORMAL INSPECTION - Neurological Exam Neurological Exam: Alert - Skin Skin Exam: Dry, Intact, Normal Color, Warm Assessment and Plan - Assessment and Plan (Free Text) Assessment: RESPIRATORY FAILURE CHF Plan: PLACE BACK ON BIPAP
[2018-08-17] MEDS: guaiFENesin DM 200 mg-20 mg/10 ml UD PO PRN ×2 (14:43→19:11)
--- NOTE | 2018-08-17 17:38 | CP.PCM.PN ---
Subjective - Date & Time of Evaluation Date of Evaluation: 08/17/18 Time of Evaluation: 09:30 - Subjective Subjective: Pt was seen as assessed at bedside. Arousable to tactile stimulation, otherwise minimally responsive to voice. Pt is lethargic at baseline, uses nasal cannula and BIPAP depending on respiratory needs. Objective - Vital Signs/Intake and Output Vital Signs (last 24 hours): Temp Pulse Resp BP Pulse Ox 97.2 F L 101 H 18 130/60 96 08/17/18 15:42 08/17/18 15:42 08/17/18 15:42 08/17/18 15:42 08/17/18 15:42 - Medications Medications: Current Medications Acetylcysteine (Mucomyst 10% 4ml) 2 ml IH RBID [facility] Albuterol/Ipratropium (Duoneb 3 Mg/0.5 Mg (3 Ml) Ud) 3 ml INH RQ4 PRN PRN Reason: Shortness of Breath Last Admin: 08/16/18 01:14 Dose: 3 ml Albuterol/Ipratropium (Duoneb 3 Mg/0.5 Mg (3 Ml) Ud) 3 ml INH RTID [facility] Anastrozole (Arimidex 1 Mg Tab) 1 mg PO DAILY [facility] Last Admin: 08/17/18 14:43 Dose: 1 mg Benzocaine/Menthol (Cepacol Sore Throat) 1 malu PO Q2 PRN PRN Reason: Sore Throat Last Admin: 08/14/18 17:18 Dose: 1 malu Calcium Acetate (Phoslo) 667 mg PO DAILY [facility] Last Admin: 08/17/18 09:59 Dose: 667 mg Dextrose (Dextrose 50% Inj) 0 ml IV STAT PRN; Protocol PRN Reason: Hypoglycemia Protocol Dextrose (Glutose 15) 0 gm PO ONCE PRN; Protocol PRN Reason: Hypoglycemia Protocol Diltiazem HCl (Cardizem Cd) 120 mg PO DAILY [facility] Last Admin: 08/17/18 09:59 Dose: 120 mg Dimethicone (Proshield Plus Skin Protectant) 1 applic TOP Q8 [facility] Last Admin: 08/17/18 10:02 Dose: 1 applic Ergocalciferol (Drisdol 50,000 Intl Units Cap) 1 cap PO QWK [facility] Last Admin: 08/15/18 08:15 Dose: 1 cap Escitalopram Oxalate (Lexapro) 20 mg PO DAILY [facility] Last Admin: 08/17/18 10:01 Dose: Not Given Furosemide (Lasix) 40 mg IVP DAILY [facility] Last Admin: 08/17/18 09:55 Dose: 40 mg Glucagon (Glucagen Diagnostic Kit) 0 mg IM STAT PRN; Protocol PRN Reason: Hypoglycemia Protocol Guaifenesin/Dextromethorphan (Robitussin Dm) 10 ml PO Q6 PRN PRN Reason: Cough Last Admin: 08/17/18 14:43 Dose: 10 ml Insulin Detemir (Levemir) 15 units SC HS [facility] Last Admin: 08/16/18 21:54 Dose: 15 unit Insulin Human Lispro (Humalog) 10 units SC TIDAC [facility] Last Admin: 08/17/18 12:29 Dose: Not Given Lactulose (Enulose) 20 gm PO TID [facility] Last Admin: 08/17/18 13:43 Dose: 20 gm Levothyroxine Sodium (Synthroid) 25 mcg PO DAILY@0630 [facility] Last Admin: 08/17/18 06:07 Dose: 25 mcg Losartan Potassium (Cozaar) 50 mg PO DAILY [facility] Last Admin: 08/17/18 10:03 Dose: 50 mg Metformin HCl (Glucophage) 500 mg PO BIDWM [facility] Last Admin: 08/17/18 09:01 Dose: 500 mg Rifaximin (Xifaxan) 550 mg PO BID [facility]; Protocol Last Admin: 08/17/18 09:59 Dose: 550 mg Sitagliptin Phosphate (Januvia) 100 mg PO DAILY [facility] Last Admin: 08/17/18 10:01 Dose: 100 mg Tiotropium [place] (Spiriva) 18 mcg INH DAILY [facility] Last Admin: 08/17/18 10:02 Dose: Not Given - Labs Labs: 08/17/18 04:25 08/17/18 04:25 PT 13.0 Seconds (9.8-13.1) 08/15/18 11:50 INR 1.1 08/15/18 11:50 - Constitutional Appears: Chronically Ill - Head Exam Head Exam: NORMAL INSPECTION - Eye Exam Eye Exam: Normal appearance - ENT Exam ENT Exam: Mucous Membranes Moist - Respiratory Exam Respiratory Exam: Rales - Cardiovascular Exam Cardiovascular Exam: +S1, +S2 - GI/Abdominal Exam GI & Abdominal Exam: Soft - Neurological Exam Neurological Exam: Altered Additional comments: pt lethargic; responsive to tactile stimuli, minimally responsive to verbal stimuli. - Skin Skin Exam: Pallor Assessment and Plan - Assessment and Plan (Free Text) Plan: Assessment/Impression/Major Problems now: 1.) CHF exac -Repeat Pro-BNP and CXR. -Nasal Cannula or BIPAP depending on respiratory needs. -follow recommendations of [employer]. -Lasix reduced to 40 mg once daily. Bun/Cr = 82/1.4. -Thoracentesis done 08/15, 1.45 L of straw colored fluid removed. 2.) Lethargy/Altered mental status -Serial ammonia levels; continue lactulose TID. Pt DNI; prognosis poor at this time.
[2018-08-17] MEDS: Acetylcysteine 10% 4 ML IH SCH (19:56)
[2018-08-17] MEDS: Albuterol-Ipratrop 3 mg / 0.5 (3 ml) UD INH SCH (19:57)
[2018-08-17] MEDS: Insulin Detemir 100 Units/ml Inj SC SCH (21:39)
[2018-08-17] MEDS: Albuterol-Ipratrop 3 mg / 0.5 (3 ml) UD INH PRN (23:24)
[2018-08-18] MEDS: Proshield Plus GEL TOP SCH ×3 (00:28→17:01)
[2018-08-18] MEDS: guaiFENesin DM 200 mg-20 mg/10 ml UD PO PRN ×3 (00:28→14:59)
[2018-08-18] MEDS: Albuterol-Ipratrop 3 mg / 0.5 (3 ml) UD INH PRN (04:52)
[2018-08-18] MEDS: Levothyroxine 25 MCG TAB PO SCH (06:21)
[2018-08-18 07:18] LABS: MEAN CELL VOLUME 97.4 fl (81.0-99.0); MEAN CORPUSCULAR HEMOGLOBIN 32.6 pg (27.0-31.0); MEAN CORPUSCULAR HGB CONC 33.5 g/dL (33.0-37.0); RBC 4.31 Mil/uL (3.80-5.20); WHITE BLOOD COUNT 21.3 K/uL (4.8-10.8)
[2018-08-18] MEDS: Acetylcysteine 10% 4 ML IH SCH ×2 (07:34→19:22)
[2018-08-18] MEDS: Albuterol-Ipratrop 3 mg / 0.5 (3 ml) UD INH SCH ×3 (07:35→19:22)
[2018-08-18 07:59] LABS: ALB/GLOB RATIO 0.8 (1.0-2.1); ALBUMIN 2.8 g/dL (3.5-5.0); CALCIUM 11.4 mg/dL (8.4-10.2)
[2018-08-18] MEDS: diltiaZEM 120 mg/24 Hours CD Cap PO SCH (08:54)
[2018-08-18] MEDS: Insulin Lispro (humaLOG) 100 Units/ml Inj SC SCH ×3 (08:57→16:59)
[2018-08-18] MEDS: Tiotropium 18 mcg Cap For Inhalation INH SCH (09:05)
[2018-08-18 10:01] LABS: ABG ALLEN TEST YES; ARTERIAL BLOOD GAS HCO3 37.9 mmol/L (21-28); ARTERIAL BLOOD GAS HEMOGLOBIN 14.9 g/dL (11.7-17.4); ARTERIAL BLOOD GAS O2 CAPACITY 20.1 mL/dL (16-24); ARTERIAL BLOOD GAS O2 CONTENT 19.8 ML/dL (15-23); ARTERIAL BLOOD GAS O2 SAT 98.5 % (95-98); ARTERIAL BLOOD GAS PCO2 46 mm/Hg (35-45); ARTERIAL BLOOD GAS PH 7.56 (7.35-7.45); ARTERIAL BLOOD GAS PO2 80 mm/Hg (80-100); ARTERIAL BLOOD GAS TCO2 42.6 mmol/L (22-28)
--- NOTE | 2018-08-18 10:19 | CP.PCM.PN ---
Subjective - Date & Time of Evaluation Date of Evaluation: 08/18/18 Time of Evaluation: 10:00 - Subjective Subjective: patient is more awake today. no new complaints. daughter is at the bedside Objective - Vital Signs/Intake and Output Vital Signs (last 24 hours): Temp Pulse Resp BP Pulse Ox 97.5 F L 100 H 18 120/78 965 H 08/18/18 08:09 08/18/18 08:56 08/18/18 08:09 08/18/18 08:59 08/18/18 08:09 - Medications Medications: Current Medications Acetylcysteine (Mucomyst 10% 4ml) 2 ml IH RBID [facility] Last Admin: 08/18/18 07:34 Dose: 2 ml Albuterol/Ipratropium (Duoneb 3 Mg/0.5 Mg (3 Ml) Ud) 3 ml INH RQ4 PRN PRN Reason: Shortness of Breath Last Admin: 08/18/18 04:52 Dose: 3 ml Albuterol/Ipratropium (Duoneb 3 Mg/0.5 Mg (3 Ml) Ud) 3 ml INH RTID [facility] Last Admin: 08/18/18 07:35 Dose: 3 ml Anastrozole (Arimidex 1 Mg Tab) 1 mg PO DAILY [facility] Last Admin: 08/18/18 08:53 Dose: 1 mg Benzocaine/Menthol (Cepacol Sore Throat) 1 malu PO Q2 PRN PRN Reason: Sore Throat Last Admin: 08/14/18 17:18 Dose: 1 malu Calcium Acetate (Phoslo) 667 mg PO DAILY [facility] Last Admin: 08/18/18 09:04 Dose: 667 mg Dextrose (Dextrose 50% Inj) 0 ml IV STAT PRN; Protocol PRN Reason: Hypoglycemia Protocol Dextrose (Glutose 15) 0 gm PO ONCE PRN; Protocol PRN Reason: Hypoglycemia Protocol Diltiazem HCl (Cardizem Cd) 120 mg PO DAILY [facility] Last Admin: 08/18/18 08:54 Dose: 120 mg Dimethicone (Proshield Plus Skin Protectant) 1 applic TOP Q8 [facility] Last Admin: 08/18/18 09:05 Dose: 1 applic Ergocalciferol (Drisdol 50,000 Intl Units Cap) 1 cap PO QWK [facility] Last Admin: 08/15/18 08:15 Dose: 1 cap Escitalopram Oxalate (Lexapro) 20 mg PO DAILY [facility] Last Admin: 08/18/18 09:00 Dose: 20 mg Furosemide (Lasix) 40 mg IVP DAILY [facility] Last Admin: 08/18/18 08:59 Dose: 40 mg Glucagon (Glucagen Diagnostic Kit) 0 mg IM STAT PRN; Protocol PRN Reason: Hypoglycemia Protocol Guaifenesin/Dextromethorphan (Robitussin Dm) 10 ml PO Q6 PRN PRN Reason: Cough Last Admin: 08/18/18 06:24 Dose: 10 ml Insulin Detemir (Levemir) 15 units SC HS [facility] Last Admin: 08/17/18 21:39 Dose: 15 unit Insulin Human Lispro (Humalog) 10 units SC TIDAC [facility] Last Admin: 08/18/18 08:57 Dose: 10 units Lactulose (Enulose) 20 gm PO TID [facility] Last Admin: 08/18/18 08:56 Dose: 20 gm Levothyroxine Sodium (Synthroid) 25 mcg PO DAILY@0630 [facility] Last Admin: 08/18/18 06:21 Dose: 25 mcg Losartan Potassium (Cozaar) 50 mg PO DAILY [facility] Last Admin: 08/18/18 08:56 Dose: 50 mg Metformin HCl (Glucophage) 500 mg PO BIDWM [facility] Last Admin: 08/18/18 08:56 Dose: 500 mg Rifaximin (Xifaxan) 550 mg PO BID [facility]; Protocol Last Admin: 08/18/18 09:06 Dose: 550 mg Sitagliptin Phosphate (Januvia) 100 mg PO DAILY [facility] Last Admin: 08/18/18 08:59 Dose: 100 mg Tiotropium [place] (Spiriva) 18 mcg INH DAILY [facility] Last Admin: 08/18/18 09:05 Dose: 18 mcg - Labs Labs: 08/18/18 04:00 08/18/18 06:45 PT 13.0 Seconds (9.8-13.1) 08/15/18 11:50 INR 1.1 08/15/18 11:50 - Constitutional Appears: Chronically Ill - Head Exam Head Exam: NORMAL INSPECTION - Eye Exam Eye Exam: Normal appearance - ENT Exam ENT Exam: Mucous Membranes Moist - Neck Exam Neck Exam: Full ROM, Normal Inspection - Respiratory Exam Respiratory Exam: Decreased Breath Sounds - Cardiovascular Exam Cardiovascular Exam: Irregular Rhythm, Murmur - GI/Abdominal Exam GI & Abdominal Exam: Normal Bowel Sounds - Rectal Exam Rectal Exam: Deferred - Extremities Exam Extremities Exam: absent: Pedal Edema - Back Exam Back Exam: NORMAL INSPECTION - Psychiatric Exam Psychiatric exam: Agitated - Skin Skin Exam: Normal Color Assessment and Plan (1) Acute diastolic heart failure due to valvular disease Assessment & Plan: improving. will continue medical therapy. Status: Acute (2) Atrial fibrillation Assessment & Plan: rate is mainly controlled. but patient becomes tachycardic with agitation. not on anticoagulation due to previous bleeding. discussed with daughter at bedside Status: Acute (3) HTN (hypertension) Assessment & Plan: use of afterload reduction for blood pressure control. Status: Chronic (4) Mitral valve regurgitation Assessment & Plan: medical therapy Status: Chronic
--- NOTE | 2018-08-18 10:24 | CP.PCM.PN ---
Subjective - Date & Time of Evaluation Date of Evaluation: 08/18/18 Time of Evaluation: 10:24 - Subjective Subjective: Much more awake Has episodes of agitation Discussed with daughter again the importance of keeping the BIPAP. Has some pain in the mid abd area when coughing. Has no fever. recent proBNP showed improvement from 5000 plus to 1700. Objective - Vital Signs/Intake and Output Vital Signs (last 24 hours): Temp Pulse Resp BP Pulse Ox 97.5 F L 100 H 18 120/78 965 H 08/18/18 08:09 08/18/18 08:56 08/18/18 08:09 08/18/18 08:59 08/18/18 08:09 - Medications Medications: Current Medications Acetylcysteine (Mucomyst 10% 4ml) 2 ml IH [facility]ID [facility] Last Admin: 08/18/18 07:34 Dose: 2 ml Albuterol/Ipratropium (Duoneb 3 Mg/0.5 Mg (3 Ml) Ud) 3 ml INH RQ4 PRN PRN Reason: Shortness of Breath Last Admin: 08/18/18 04:52 Dose: 3 ml Albuterol/Ipratropium (Duoneb 3 Mg/0.5 Mg (3 Ml) Ud) 3 ml INH RTID [facility] Last Admin: 08/18/18 07:35 Dose: 3 ml Anastrozole (Arimidex 1 Mg Tab) 1 mg PO DAILY [facility] Last Admin: 08/18/18 08:53 Dose: 1 mg Benzocaine/Menthol (Cepacol Sore Throat) 1 malu PO Q2 PRN PRN Reason: Sore Throat Last Admin: 08/14/18 17:18 Dose: 1 malu Calcium Acetate (Phoslo) 667 mg PO DAILY [facility] Last Admin: 08/18/18 09:04 Dose: 667 mg Dextrose (Dextrose 50% Inj) 0 ml IV STAT PRN; Protocol PRN Reason: Hypoglycemia Protocol Dextrose (Glutose 15) 0 gm PO ONCE PRN; Protocol PRN Reason: Hypoglycemia Protocol Diltiazem HCl (Cardizem Cd) 120 mg PO DAILY [facility] Last Admin: 08/18/18 08:54 Dose: 120 mg Dimethicone (Proshield Plus Skin Protectant) 1 applic TOP Q8 [facility] Last Admin: 08/18/18 09:05 Dose: 1 applic Ergocalciferol (Drisdol 50,000 Intl Units Cap) 1 cap PO QWK [facility] Last Admin: 08/15/18 08:15 Dose: 1 cap Escitalopram Oxalate (Lexapro) 20 mg PO DAILY [facility] Last Admin: 08/18/18 09:00 Dose: 20 mg Furosemide (Lasix) 40 mg IVP DAILY [facility] Last Admin: 08/18/18 08:59 Dose: 40 mg Glucagon (Glucagen Diagnostic Kit) 0 mg IM STAT PRN; Protocol PRN Reason: Hypoglycemia Protocol Guaifenesin/Dextromethorphan (Robitussin Dm) 10 ml PO Q6 PRN PRN Reason: Cough Last Admin: 08/18/18 06:24 Dose: 10 ml Insulin Detemir (Levemir) 15 units SC HS [facility] Last Admin: 08/17/18 21:39 Dose: 15 unit Insulin Human Lispro (Humalog) 10 units SC TIDAC [facility] Last Admin: 08/18/18 08:57 Dose: 10 units Lactulose (Enulose) 20 gm PO TID [facility] Last Admin: 08/18/18 08:56 Dose: 20 gm Levothyroxine Sodium (Synthroid) 25 mcg PO DAILY@0630 [facility] Last Admin: 08/18/18 06:21 Dose: 25 mcg Losartan Potassium (Cozaar) 50 mg PO DAILY [facility] Last Admin: 08/18/18 08:56 Dose: 50 mg Metformin HCl (Glucophage) 500 mg PO BIDWM [facility] Last Admin: 08/18/18 08:56 Dose: 500 mg Rifaximin (Xifaxan) 550 mg PO BID [facility]; Protocol Last Admin: 08/18/18 09:06 Dose: 550 mg Sitagliptin Phosphate (Januvia) 100 mg PO DAILY [facility] Last Admin: 08/18/18 08:59 Dose: 100 mg Tiotropium [place] (Spiriva) 18 mcg INH DAILY [facility] Last Admin: 08/18/18 09:05 Dose: 18 mcg - Labs Labs: 08/18/18 04:00 08/18/18 06:45 PT 13.0 Seconds (9.8-13.1) 08/15/18 11:50 INR 1.1 08/15/18 11:50 - Head Exam Head Exam: NORMAL INSPECTION - Eye Exam Eye Exam: Normal appearance - ENT Exam ENT Exam: Mucous Membranes Moist - Respiratory Exam Respiratory Exam: Decreased Breath Sounds - Cardiovascular Exam Cardiovascular Exam: Irregular Rhythm - GI/Abdominal Exam GI & Abdominal Exam: Normal Bowel Sounds - Neurological Exam Neurological Exam: Awake Assessment and Plan (1) CHF (congestive heart failure) Status: Acute (2) Pleural effusion Status: Acute (3) Atrial fibrillation Status: Acute (4) Severe mitral insufficiency Status: Acute (5) Afib Status: Chronic (6) DM2 (diabetes mellitus, type 2) Status: Chronic (7) HTN (hypertension) Status: Chronic (8) Pulmonary hypertension Status: Chronic (9) Anasarca Status: Acute - Assessment and Plan (Free Text) Plan: Cont meds fluid restriction if persistent pain will do a CT scan
--- NOTE | 2018-08-18 11:03 | PQF ---
PROVIDER RESPONSE TEXT: SEVERE PERSISTENT ASTHMA REVIEWER QUERY TEXT: Asthma Specificity and Type Acute Asthma Exacerbation is documented in the Medical Record. Please specify the type and severity of asthma and indicate if this is associated with exacerbation or status asthmaticus. if known Such as: -- Mild intermittent -- Mild persistent -- Moderate persistent -- Severe persistent -- Other, please specify The patient's Clinical Indicators include: ---- Query created by: Rosa Mejia on 08/15/2018 11:33 AM Electronically signed by: Marco Hughes MD 08/18/2018 11:00 AM
--- NOTE | 2018-08-18 11:39 | CP.PCM.PN ---
Subjective - Date & Time of Evaluation Date of Evaluation: 08/18/18 Time of Evaluation: 11:41 - Subjective Subjective: DAUGHTERS AT BEDSIDE AND CASE WAS DISCUSSED WITH THEM INCLUDING DNR THEY WANT DNI ONLY I EXPLAINED THE MOTHER'S CONDITION AND GUARDED PROGNOSIS BUT THEY INDICATE THAT THEIR MOTHER HAS BEEN WORSE IN THE PAST BUT RECOVERED Objective - Vital Signs/Intake and Output Vital Signs (last 24 hours): Temp Pulse Resp BP Pulse Ox 97.5 F L 100 H 18 120/78 965 H 08/18/18 08:09 08/18/18 08:56 08/18/18 08:09 08/18/18 08:59 08/18/18 08:09 - Medications Medications: Current Medications Acetylcysteine (Mucomyst 10% 4ml) [address] [facility] Last Admin: 08/18/18 07:34 Dose: 2 ml Albuterol/Ipratropium (Duoneb 3 Mg/0.5 Mg (3 Ml) Ud) 3 ml INH RQ4 PRN PRN Reason: Shortness of Breath Last Admin: 08/18/18 04:52 Dose: 3 ml Albuterol/Ipratropium (Duoneb 3 Mg/0.5 Mg (3 Ml) Ud) [address] [facility] Last Admin: 08/18/18 07:35 Dose: 3 ml Anastrozole (Arimidex 1 Mg Tab) [address] [facility] Last Admin: 08/18/18 08:53 Dose: 1 mg Benzocaine/Menthol (Cepacol Sore Throat) 1 malu PO Q2 PRN PRN Reason: Sore Throat Last Admin: 08/14/18 17:18 Dose: 1 malu Calcium Acetate (Phoslo) [address] [facility] Last Admin: 08/18/18 09:04 Dose: 667 mg Dextrose (Dextrose 50% Inj) 0 ml IV STAT PRN; Protocol PRN Reason: Hypoglycemia Protocol Dextrose (Glutose 15) 0 gm PO ONCE PRN; Protocol PRN Reason: Hypoglycemia Protocol Diltiazem HCl (Cardizem Cd) [address] [facility] Last Admin: 08/18/18 08:54 Dose: 120 mg Dimethicone (Proshield Plus Skin Protectant) [address] [facility] Last Admin: 08/18/18 09:05 Dose: 1 applic Ergocalciferol (Drisdol 50,000 Intl Units Cap) [address] [facility] Last Admin: 08/15/18 08:15 Dose: 1 cap Escitalopram Oxalate (Lexapro) [address] [facility] Last Admin: 08/18/18 09:00 Dose: 20 mg Furosemide (Lasix) [address] [facility] Last Admin: 08/18/18 08:59 Dose: 40 mg Glucagon (Glucagen Diagnostic Kit) 0 mg IM STAT PRN; Protocol PRN Reason: Hypoglycemia Protocol Guaifenesin/Dextromethorphan (Robitussin Dm) 10 ml PO Q6 PRN PRN Reason: Cough Last Admin: 08/18/18 06:24 Dose: 10 ml Insulin Detemir (Levemir) [address] [facility] Last Admin: 08/17/18 21:39 Dose: 15 unit Insulin Human Lispro (Humalog) [address] [facility] Last Admin: 08/18/18 08:57 Dose: 10 units Lactulose (Enulose) [address] [facility] Last Admin: 08/18/18 08:56 Dose: 20 gm Levothyroxine Sodium (Synthroid) 25 mcg PO DAILY@0630 [facility] Last Admin: 08/18/18 06:21 Dose: 25 mcg Losartan Potassium (Cozaar) [address] [facility] Last Admin: 08/18/18 08:56 Dose: 50 mg Metformin HCl (Glucophage) [address] [facility] Last Admin: 08/18/18 08:56 Dose: 500 mg Rifaximin (Xifaxan) [address] [facility]; Protocol Last Admin: 08/18/18 09:06 Dose: 550 mg Sitagliptin Phosphate (Januvia) [address] [facility] Last Admin: 08/18/18 08:59 Dose: 100 mg Tiotropium [place] (Spiriva) [address] [facility] Last Admin: 08/18/18 09:05 Dose: 18 mcg - Labs Labs: 08/18/18 04:00 08/18/18 06:45 PT 13.0 Seconds (9.8-13.1) 08/15/18 11:50 INR 1.1 08/15/18 11:50 - Constitutional Appears: Chronically Ill - Head Exam Head Exam: ATRAUMATIC, NORMAL INSPECTION, NORMOCEPHALIC - Eye Exam Eye Exam: EOMI, Normal appearance, PERRL Pupil Exam: NORMAL ACCOMODATION, PERRL - ENT Exam ENT Exam: Mucous Membranes Moist, Normal Exam - Neck Exam Neck Exam: Full ROM, Normal Inspection. absent: Lymphadenopathy - Respiratory Exam Respiratory Exam: Decreased Breath Sounds, Prolonged Expiratory Phase, Rales, NORMAL BREATHING PATTERN - Cardiovascular Exam Cardiovascular Exam: REGULAR RHYTHM, +S1, +S2. absent: Murmur - GI/Abdominal Exam GI & Abdominal Exam: Soft, Normal Bowel Sounds. absent: Tenderness - Rectal Exam Rectal Exam: NORMAL INSPECTION - Extremities Exam Extremities Exam: Full ROM, Normal Capillary Refill, Normal Inspection. absent: Joint Swelling, Pedal Edema - Back Exam Back Exam: NORMAL INSPECTION - Neurological Exam Additional comments: DROWSY BUT EASILY AROUSABLE - Psychiatric Exam Psychiatric exam: Normal Affect, Normal Mood - Skin Skin Exam: Dry, Intact, Normal Color, Warm Assessment and Plan - Assessment and Plan (Free Text) Assessment: ACUTE RESPIRATORY FAILURE--CHF AND COPD WITH VALVULAR HEART DZ PLEURAL EFFUSION CHRONIC PERSISTENT ASTHMA Plan: CONTINUE BIPAP THERAPY SERIAL CXRS
[2018-08-18] MEDS: Insulin Detemir 100 Units/ml Inj SC SCH (21:37)
[2018-08-19] MEDS: Proshield Plus GEL TOP SCH ×3 (00:15→17:17)
[2018-08-19] MEDS: Levothyroxine 25 MCG TAB PO SCH (05:47)
[2018-08-19] MEDS: Acetylcysteine 10% 4 ML IH SCH ×2 (08:08→19:01)
[2018-08-19] MEDS: Albuterol-Ipratrop 3 mg / 0.5 (3 ml) UD INH SCH ×3 (08:08→19:01)
[2018-08-19] MEDS: Insulin Lispro (humaLOG) 100 Units/ml Inj SC SCH ×3 (09:27→17:17)
[2018-08-19] MEDS: Tiotropium 18 mcg Cap For Inhalation INH SCH (09:29)
[2018-08-19] MEDS: diltiaZEM 120 mg/24 Hours CD Cap PO SCH (09:29)
[2018-08-19] MEDS: guaiFENesin DM 200 mg-20 mg/10 ml UD PO PRN ×2 (09:30→17:17)
--- NOTE | 2018-08-19 10:25 | CP.PCM.PN ---
Subjective - Date & Time of Evaluation Date of Evaluation: 08/19/18 Time of Evaluation: 10:27 - Subjective Subjective: KEEPS REMOVING BIPAP EPISODES OF CONFUSION O2 SAT ADEQUATE ON NC O2 APPEARS WEAK Objective - Vital Signs/Intake and Output Vital Signs (last 24 hours): Temp Pulse Resp BP Pulse Ox 97.3 F L 102 H 18 116/74 96 08/19/18 08:02 08/19/18 09:30 08/19/18 08:02 08/19/18 09:30 08/19/18 08:02 - Medications Medications: Current Medications Acetaminophen (Tylenol 325mg Tab) 650 mg PO Q6 PRN PRN Reason: Pain 1-10 Last Admin: 08/19/18 09:34 Dose: 650 mg Acetylcysteine (Mucomyst 10% 4ml) 2 ml IH RBID [facility] Last Admin: 08/19/18 08:08 Dose: 2 ml Albuterol/Ipratropium (Duoneb 3 Mg/0.5 Mg (3 Ml) Ud) 3 ml INH RQ4 PRN PRN Reason: Shortness of Breath Last Admin: 08/18/18 04:52 Dose: 3 ml Albuterol/Ipratropium (Duoneb 3 Mg/0.5 Mg (3 Ml) Ud) 3 ml INH RTID [facility] Last Admin: 08/19/18 08:08 Dose: 3 ml Anastrozole (Arimidex 1 Mg Tab) 1 mg PO DAILY [facility] Last Admin: 08/19/18 09:31 Dose: 1 mg Benzocaine/Menthol (Cepacol Sore Throat) 1 malu PO Q2 PRN PRN Reason: Sore Throat Last Admin: 08/14/18 17:18 Dose: 1 malu Calcium Acetate (Phoslo) 667 mg PO DAILY [facility] Last Admin: 08/19/18 09:32 Dose: 667 mg Dextrose (Dextrose 50% Inj) 0 ml IV STAT PRN; Protocol PRN Reason: Hypoglycemia Protocol Last Admin: 08/18/18 15:47 Dose: 50 ml Dextrose (Glutose 15) 0 gm PO ONCE PRN; Protocol PRN Reason: Hypoglycemia Protocol Diltiazem HCl (Cardizem Cd) 120 mg PO DAILY [facility] Last Admin: 08/19/18 09:29 Dose: 120 mg Dimethicone (Proshield Plus Skin Protectant) 1 applic TOP Q8 [facility] Last Admin: 08/19/18 09:32 Dose: 1 applic Ergocalciferol (Drisdol 50,000 Intl Units Cap) 1 cap PO QWK [facility] Last Admin: 08/15/18 08:15 Dose: 1 cap Escitalopram Oxalate (Lexapro) 20 mg PO DAILY [facility] Last Admin: 08/19/18 09:30 Dose: 20 mg Furosemide (Lasix) 40 mg IVP DAILY [facility] Last Admin: 08/19/18 09:30 Dose: 40 mg Glucagon (Glucagen Diagnostic Kit) 0 mg IM STAT PRN; Protocol PRN Reason: Hypoglycemia Protocol Guaifenesin/Dextromethorphan (Robitussin Dm) 10 ml PO Q6 PRN PRN Reason: Cough Last Admin: 08/19/18 09:30 Dose: 10 ml Insulin Detemir (Levemir) 15 units SC HS [facility] Last Admin: 08/18/18 21:37 Dose: Not Given Insulin Human Lispro (Humalog) 10 units SC TIDAC [facility] Last Admin: 08/19/18 09:27 Dose: Not Given Lactulose (Enulose) 20 gm PO TID [facility] Last Admin: 08/19/18 09:26 Dose: Not Given Levothyroxine Sodium (Synthroid) 25 mcg PO DAILY@0630 [facility] Last Admin: 08/19/18 05:47 Dose: 25 mcg Losartan Potassium (Cozaar) 50 mg PO DAILY [facility] Last Admin: 08/19/18 09:30 Dose: 50 mg Metformin HCl (Glucophage) 500 mg PO BIDWM [facility] Last Admin: 08/19/18 09:29 Dose: 500 mg Rifaximin (Xifaxan) 550 mg PO BID [facility]; Protocol Last Admin: 08/19/18 09:30 Dose: 550 mg Sitagliptin Phosphate (Januvia) 100 mg PO DAILY [facility] Last Admin: 08/19/18 09:29 Dose: 100 mg Tiotropium [place] (Spiriva) 18 mcg INH DAILY [facility] Last Admin: 08/19/18 09:29 Dose: 18 mcg - Labs Labs: 08/18/18 04:00 08/18/18 06:45 PT 13.0 Seconds (9.8-13.1) 08/15/18 11:50 INR 1.1 08/15/18 11:50 - Constitutional Appears: Chronically Ill - Head Exam Head Exam: ATRAUMATIC, NORMAL INSPECTION, NORMOCEPHALIC - Eye Exam Eye Exam: EOMI, Normal appearance, PERRL Pupil Exam: NORMAL ACCOMODATION, PERRL - ENT Exam ENT Exam: Mucous Membranes Moist, Normal Exam - Neck Exam Neck Exam: Full ROM, Normal Inspection. absent: Lymphadenopathy - Respiratory Exam Respiratory Exam: Prolonged Expiratory Phase, Rales, Wheezes, NORMAL BREATHING PATTERN Additional comments: ON NC O2 - Cardiovascular Exam Cardiovascular Exam: Tachycardia, +S1, +S2. absent: Murmur - GI/Abdominal Exam GI & Abdominal Exam: Soft, Normal Bowel Sounds. absent: Tenderness - Rectal Exam Rectal Exam: NORMAL INSPECTION - Extremities Exam Extremities Exam: Full ROM, Normal Capillary Refill, Normal Inspection. absent: Joint Swelling, Pedal Edema - Back Exam Back Exam: NORMAL INSPECTION - Skin Skin Exam: Dry, Intact, Normal Color, Warm Assessment and Plan - Assessment and Plan (Free Text) Assessment: ACUTE RESP FAILURE CHF VALVULAR HEART DZ PLEURAL EFFUSION ASTHMA EXAC Plan: CONTINUE CURRENT RX PROGNOSIS IS POOR DNR PER FAMILY'S REQUEST
[2018-08-19] MEDS: levoFLOXacin 500 mg in D5W 500 MG/100 ML BAG IVPB SCH (12:21)
[2018-08-19] MEDS: Lidocaine 5% Patch TD SCH (17:18)
[2018-08-19] MEDS: Insulin Detemir 100 Units/ml Inj SC SCH (21:32)
--- NOTE | 2018-08-20 00:07 | CP.PCM.PN ---
Subjective - Date & Time of Evaluation Date of Evaluation: 08/19/18 Time of Evaluation: 19:00 - Subjective Subjective: Patient continues to have pain in the abd area when coughing Has no fever. WBC is now 23 from 28 K Much more awake ABG's from yesterdy showed normal CO2 range. Objective - Vital Signs/Intake and Output Vital Signs (last 24 hours): Temp Pulse Resp BP Pulse Ox 97.7 F 94 H 18 95/55 L 95 08/19/18 20:31 08/19/18 20:31 08/19/18 20:31 08/19/18 20:31 08/19/18 20:31 - Medications Medications: Current Medications Acetaminophen (Tylenol 325mg Tab) 650 mg PO Q6 PRN PRN Reason: Pain 1-10 Last Admin: 08/19/18 17:22 Dose: 650 mg Acetylcysteine (Mucomyst 10% 4ml) 2 ml IH RBID [facility] Last Admin: 08/19/18 19:01 Dose: 2 ml Albuterol/Ipratropium (Duoneb 3 Mg/0.5 Mg (3 Ml) Ud) 3 ml INH RQ4 PRN PRN Reason: Shortness of Breath Last Admin: 08/18/18 04:52 Dose: 3 ml Albuterol/Ipratropium (Duoneb 3 Mg/0.5 Mg (3 Ml) Ud) 3 ml INH RTID [facility] Last Admin: 08/19/18 19:01 Dose: 3 ml Anastrozole (Arimidex 1 Mg Tab) 1 mg PO DAILY [facility] Last Admin: 08/19/18 09:31 Dose: 1 mg Benzocaine/Menthol (Cepacol Sore Throat) 1 malu PO Q2 PRN PRN Reason: Sore Throat Last Admin: 08/14/18 17:18 Dose: 1 malu Calcium Acetate (Phoslo) 667 mg PO DAILY [facility] Last Admin: 08/19/18 09:32 Dose: 667 mg Dextrose (Dextrose 50% Inj) 0 ml IV STAT PRN; Protocol PRN Reason: Hypoglycemia Protocol Last Admin: 08/18/18 15:47 Dose: 50 ml Dextrose (Glutose 15) 0 gm PO ONCE PRN; Protocol PRN Reason: Hypoglycemia Protocol Diltiazem HCl (Cardizem Cd) 120 mg PO DAILY [facility] Last Admin: 08/19/18 09:29 Dose: 120 mg Dimethicone (Proshield Plus Skin Protectant) 1 applic TOP Q8 [facility] Last Admin: 08/19/18 17:17 Dose: 1 applic Ergocalciferol (Drisdol 50,000 Intl Units Cap) 1 cap PO QWK [facility] Last Admin: 08/15/18 08:15 Dose: 1 cap Escitalopram Oxalate (Lexapro) 20 mg PO DAILY [facility] Last Admin: 08/19/18 09:30 Dose: 20 mg Furosemide (Lasix) 40 mg IVP DAILY [facility] Last Admin: 08/19/18 09:30 Dose: 40 mg Glucagon (Glucagen Diagnostic Kit) 0 mg IM STAT PRN; Protocol PRN Reason: Hypoglycemia Protocol Guaifenesin/Dextromethorphan (Robitussin Dm) 10 ml PO Q6 PRN PRN Reason: Cough Last Admin: 08/19/18 17:17 Dose: 10 ml Levofloxacin/Dextrose (Levaquin 500mg) 500 mg in 100 mls @ 100 mls/hr IVPB DAILY [facility]; Protocol Last Admin: 08/19/18 12:21 Dose: 100 mls/hr Insulin Detemir (Levemir) 15 units SC HS [facility] Last Admin: 08/19/18 21:32 Dose: 15 unit Insulin Human Lispro (Humalog) 10 units SC TIDAC [facility] Last Admin: 08/19/18 17:17 Dose: Not Given Lactulose (Enulose) 20 gm PO TID [facility] Last Admin: 08/19/18 17:15 Dose: Not Given Levothyroxine Sodium (Synthroid) 25 mcg PO DAILY@0630 [facility] Last Admin: 08/19/18 05:47 Dose: 25 mcg Lidocaine (Lidoderm) 1 ea TD DAILY [facility] Last Admin: 08/19/18 17:18 Dose: 1 ea Losartan Potassium (Cozaar) 50 mg PO DAILY [facility] Last Admin: 08/19/18 09:30 Dose: 50 mg Metformin HCl (Glucophage) 500 mg PO BIDWM [facility] Last Admin: 08/19/18 17:17 Dose: 500 mg Rifaximin (Xifaxan) 550 mg PO BID [facility]; Protocol Last Admin: 08/19/18 17:18 Dose: 550 mg Sitagliptin Phosphate (Januvia) 100 mg PO DAILY [facility] Last Admin: 08/19/18 09:29 Dose: 100 mg Tiotropium [place] (Spiriva) 18 mcg INH DAILY [facility] Last Admin: 08/19/18 09:29 Dose: 18 mcg - Labs Labs: 08/18/18 04:00 08/18/18 06:45 PT 13.0 Seconds (9.8-13.1) 08/15/18 11:50 INR 1.1 08/15/18 11:50 - Head Exam Head Exam: NORMAL INSPECTION - Eye Exam Eye Exam: Normal appearance - ENT Exam ENT Exam: Mucous Membranes Moist - Respiratory Exam Respiratory Exam: Decreased Breath Sounds - Cardiovascular Exam Cardiovascular Exam: Irregular Rhythm - GI/Abdominal Exam GI & Abdominal Exam: Diminished Bowel Sounds Additional comments: slight tenderness on the periumbilical; area but abdomen is soft. Assessment and Plan (1) CHF (congestive heart failure) Status: Acute (2) Pleural effusion Status: Acute (3) Atrial fibrillation Status: Acute (4) Severe mitral insufficiency Status: Acute (5) Afib Status: Chronic (6) DM2 (diabetes mellitus, type 2) Status: Chronic (7) HTN (hypertension) Status: Chronic (8) Pulmonary hypertension Status: Chronic (9) Anasarca Status: Acute - Assessment and Plan (Free Text) Plan: Will do CT scan of the abdoemn repat CBC CMP and probnp start phys therapy Advised daughter that patient need s to go to [facility] subacute or [facility] acute care for maintenance of tretament. She desires to bring mother to home but she was advised that she may need more nursing care and close follow up. will adjust Lasix
[2018-08-20] MEDS: guaiFENesin DM 200 mg-20 mg/10 ml UD PO PRN ×2 (02:19→21:16)
[2018-08-20] MEDS: Proshield Plus GEL TOP SCH ×3 (02:21→16:18)
[2018-08-20] MEDS: Albuterol-Ipratrop 3 mg / 0.5 (3 ml) UD INH PRN (02:35)
[2018-08-20] MEDS: Levothyroxine 25 MCG TAB PO SCH (05:34)
[2018-08-20 05:57] LABS: ALB/GLOB RATIO 0.8 (1.0-2.1); ALBUMIN 2.7 g/dL (3.5-5.0); CALCIUM 11.6 mg/dL (8.4-10.2)
[2018-08-20 06:11] LABS: BASO # 0.1 K/uL (0.0-0.2); BASO % 0.3 % (0.0-2.0); EOS # 0.2 K/uL (0.0-0.7); EOS % 0.6 % (0.0-4.0); HEMOGLOBIN 12.5 g/dL (12.0-16.0); LYMPH # 1.4 K/uL (1.0-4.3); LYMPH % 5.7 % (20.0-40.0); MEAN CELL VOLUME 99.1 fl (81.0-99.0); MEAN CORPUSCULAR HEMOGLOBIN 32.4 pg (27.0-31.0); MEAN CORPUSCULAR HGB CONC 32.7 g/dL (33.0-37.0); MEAN PLATELET VOLUME 10.7 fl (7.2-11.7); MONO % 7.9 % (0.0-10.0); NEUT # 21.7 K/uL (1.8-7.0); NEUT % 85.5 % (50.0-75.0); NRBC % 0.2 % (0.0-0.0); PLATELET COUNT 87 K/uL (130-400); RBC 3.87 Mil/uL (3.80-5.20); RED CELL DISTRIBUTION WIDTH 14.2 % (11.5-14.5); WHITE BLOOD COUNT 25.4 K/uL (4.8-10.8)
--- NOTE | 2018-08-20 07:08 | CP.PCM.PN ---
Subjective - Date & Time of Evaluation Date of Evaluation: 08/20/18 Time of Evaluation: 06:40 - Subjective Subjective: no acute distress. has been restless at times. Objective - Vital Signs/Intake and Output Vital Signs (last 24 hours): Temp Pulse Resp BP Pulse Ox 97.4 F L 100 H 20 105/61 90 L 08/20/18 04:36 08/20/18 04:36 08/20/18 04:36 08/20/18 04:36 08/20/18 04:36 - Medications Medications: Current Medications Acetaminophen (Tylenol 325mg Tab) 650 mg PO Q6 PRN PRN Reason: Pain 1-10 Last Admin: 08/20/18 00:06 Dose: 650 mg Acetylcysteine (Mucomyst 10% 4ml) 2 ml IH RBID [facility] Last Admin: 08/19/18 19:01 Dose: 2 ml Albuterol/Ipratropium (Duoneb 3 Mg/0.5 Mg (3 Ml) Ud) 3 ml INH RQ4 PRN PRN Reason: Shortness of Breath Last Admin: 08/20/18 02:35 Dose: 3 ml Albuterol/Ipratropium (Duoneb 3 Mg/0.5 Mg (3 Ml) Ud) 3 ml INH RTID [facility] Last Admin: 08/19/18 19:01 Dose: 3 ml Anastrozole (Arimidex 1 Mg Tab) 1 mg PO DAILY [facility] Last Admin: 08/19/18 09:31 Dose: 1 mg Benzocaine/Menthol (Cepacol Sore Throat) 1 malu PO Q2 PRN PRN Reason: Sore Throat Last Admin: 08/14/18 17:18 Dose: 1 malu Calcium Acetate (Phoslo) 667 mg PO DAILY [facility] Last Admin: 08/19/18 09:32 Dose: 667 mg Dextrose (Dextrose 50% Inj) 0 ml IV STAT PRN; Protocol PRN Reason: Hypoglycemia Protocol Last Admin: 08/18/18 15:47 Dose: 50 ml Dextrose (Glutose 15) 0 gm PO ONCE PRN; Protocol PRN Reason: Hypoglycemia Protocol Diltiazem HCl (Cardizem Cd) 120 mg PO DAILY [facility] Last Admin: 08/19/18 09:29 Dose: 120 mg Dimethicone (Proshield Plus Skin Protectant) 1 applic TOP Q8 [facility] Last Admin: 08/20/18 02:21 Dose: 1 applic Ergocalciferol (Drisdol 50,000 Intl Units Cap) 1 cap PO QWK [facility] Last Admin: 08/15/18 08:15 Dose: 1 cap Escitalopram Oxalate (Lexapro) 20 mg PO DAILY [facility] Last Admin: 08/19/18 09:30 Dose: 20 mg Furosemide (Lasix) 40 mg IVP DAILY [facility] Last Admin: 08/19/18 09:30 Dose: 40 mg Furosemide (Lasix) 20 mg IVP QPM [facility] Glucagon (Glucagen Diagnostic Kit) 0 mg IM STAT PRN; Protocol PRN Reason: Hypoglycemia Protocol Guaifenesin/Dextromethorphan (Robitussin Dm) 10 ml PO Q6 PRN PRN Reason: Cough Last Admin: 08/20/18 02:19 Dose: 10 ml Levofloxacin/Dextrose (Levaquin 500mg) 500 mg in 100 mls @ 100 mls/hr IVPB [facility]; Protocol Last Admin: 08/19/18 12:21 Dose: 100 mls/hr Insulin Detemir (Levemir) 15 units SC HS [facility] Last Admin: 08/19/18 21:32 Dose: 15 unit Insulin Human Lispro (Humalog) 10 units SC TIDAC [facility] Last Admin: 08/19/18 17:17 Dose: Not Given Lactulose (Enulose) 20 gm PO TID [facility] Last Admin: 08/19/18 17:15 Dose: Not Given Lidocaine (Lidoderm) 1 ea TD DAILY [facility] Last Admin: 08/19/18 17:18 Dose: 1 ea Losartan Potassium (Cozaar) 50 mg PO DAILY [facility] Last Admin: 08/19/18 09:30 Dose: 50 mg Metformin HCl (Glucophage) 500 mg PO BIDWM [facility] Last Admin: 08/19/18 17:17 Dose: 500 mg Rifaximin (Xifaxan) 550 mg PO BID [facility]; Protocol Last Admin: 08/19/18 17:18 Dose: 550 mg Sitagliptin Phosphate (Januvia) 100 mg PO DAILY [facility] Last Admin: 08/19/18 09:29 Dose: [address] (Spiriva) 18 mcg INH DAILY [facility] Last Admin: 08/19/18 09:29 Dose: 18 mcg - Labs Labs: 08/20/18 04:30 08/20/18 04:30 PT 13.0 Seconds (9.8-13.1) 08/15/18 11:50 INR 1.1 08/15/18 11:50 - Constitutional Appears: Chronically Ill - Head Exam Head Exam: NORMAL INSPECTION - Eye Exam Eye Exam: Normal appearance - ENT Exam ENT Exam: Mucous Membranes Moist - Neck Exam Neck Exam: Full ROM - Respiratory Exam Respiratory Exam: Decreased Breath Sounds - Cardiovascular Exam Cardiovascular Exam: REGULAR RHYTHM - GI/Abdominal Exam GI & Abdominal Exam: Normal Bowel Sounds - Rectal Exam Rectal Exam: Deferred - Extremities Exam Extremities Exam: absent: Pedal Edema - Back Exam Back Exam: NORMAL INSPECTION - Skin Skin Exam: Normal Color Assessment and Plan (1) Acute diastolic heart failure due to valvular disease Assessment & Plan: continue conservative therapy and blood pressure control. Status: Acute (2) Atrial fibrillation Assessment & Plan: no anticoagulation due to GI bleed Status: Acute (3) HTN (hypertension) Assessment & Plan: blood pressure control Status: Chronic (4) Mitral valve regurgitation Assessment & Plan: no invasive procedures Status: Chronic
[2018-08-20] MEDS: Albuterol-Ipratrop 3 mg / 0.5 (3 ml) UD INH SCH ×3 (07:28→20:09)
[2018-08-20] MEDS: Acetylcysteine 10% 4 ML IH SCH (07:28)
[2018-08-20 07:33] LABS: LYMPHOCYTE 10 % (20-50); MONOCYTE 5 % (0-10); NEUTROPHIL 85 % (42-75); PLATELET ESTIMATE DECREASED (NORMAL); TOTAL CELLS COUNTED 100
[2018-08-20 07:34] LABS: ANISOCYTOSIS SLIGHT; OVALOCYTES SLIGHT; TEARDROP CELLS SLIGHT
[2018-08-20] MEDS: Tiotropium 18 mcg Cap For Inhalation INH SCH (08:58)
[2018-08-20] MEDS: Lidocaine 5% Patch TD SCH (09:03)
[2018-08-20] MEDS: diltiaZEM 120 mg/24 Hours CD Cap PO SCH (09:06)
[2018-08-20] MEDS: Insulin Lispro (humaLOG) 100 Units/ml Inj SC SCH ×3 (09:09→16:17)
[2018-08-20] MEDS: levoFLOXacin 500 mg in D5W 500 MG/100 ML BAG IVPB SCH (09:11)
--- NOTE | 2018-08-20 11:20 | CT ---
Date of service: 08/19/2018 PROCEDURE: CT Abdomen and Pelvis without intravenous contrast HISTORY: abdominal pain COMPARISON: Abdomen pelvis CT without contrast 12/12/2014. TECHNIQUE: Helical CT of the abdomen and pelvis was performed without oral or intravenous contrast as per referring physician request. Coronal and sagittal reformats were generated. Contrast dose: None Radiation dose: Total exam DLP = 756.76 mGy-cm. This CT exam was performed using one or more of the following dose reduction techniques: Automated exposure control, adjustment of the mA and/or kV according to patient size, and/or use of iterative reconstruction technique. FINDINGS: LOWER THORAX: Prior minimal left pleural effusion is likely minimally recurrent. A large right pleural effusion is now identified. Compression atelectasis affects the right lower lobe limited atelectasis felt to present the dependent left lower lobe. Cardiomegaly is prominent with pacemaker leads in the right heart. Extensive coronary artery calcifications are identified as well as at the visualized abdominal aorta. LIVER: Shrunken cirrhotic liver is appreciate with a nodular peripheral surface identified. Lack images contrast limits solid abdominal viscera however no gross mass is demonstrated nevertheless. Perihepatic ascites appears mild. GALLBLADDER AND BILE DUCTS: Cholelithiasis is increased at the dependent gallbladder which is otherwise unremarkable. PANCREAS: An atrophic, nonfocal pancreas is identified. SPLEEN: Unremarkable. ADRENALS: Unremarkable. No mass. KIDNEYS AND URETERS: Vascular calcifications are favored over intrarenal calculi bilaterally. No obstructive uropathy or gross mass evident. VASCULATURE: Nonaneurysmal abdominal aortic calcific atherosclerotic changes are identified. BOWEL: Bowel is not appear obstructed. No local edema is seen adjacent to the bowel loops overall. Limited retained fecal material scattered throughout various large-bowel segments. Limited left colonic diverticular changes are appreciated. No definitive acute mesenteric reaction related. The stomach is distended with retained food/fluid fluid. APPENDIX: Appendix not identified once again. PERITONEUM: Crzp-bb-[id number] ascites concentrated at the upper abdomen and lower abdomen/pelvis. LYMPH NODES: Unremarkable. No enlarged lymph nodes. BLADDER: Unremarkable. REPRODUCTIVE: Unremarkable. BONES: No acute fracture. OTHER FINDINGS: Hyperdense changes are suspicious for hemorrhage within the inferior bilateral rectus musculature, right greater than left to [id number] severity. IMPRESSION: 1. Hyperdensity related to the bilateral rectus abdominus musculature at the inferior abdomen/pelvis is felt to represent [id number] intramuscular hemorrhage. Clinically correlate as to etiology. 2. [id number] ascites (not hemoperitoneum). 3. Cirrhotic liver identified in the interval. 4. Cholelithiasis. 5. Large right pleural effusion. Trace left pleural effusion. Cardiomegaly. Discordant preliminary report from [facility]FF[facility] (intramuscular hemorrhage at rectus abdominus musculature not mentioned), 08/19/2018 8:54 p.m.. Findings discussed with Nurse Mayi Galaviz with written down and read back verification 08/20/2018, 11:05 a.m.. Findings subsequently discussed with Dr. Jenkins 08/19/2018 11:10 a.m..
--- NOTE | 2018-08-20 17:27 | CP.PCM.CON ---
<Waldemar Morris - Last Filed: 08/20/18 17:28> History of Present Illness - History of Present Illness History of Present Illness: General Surgery Consult: Dr. Black 82F with PMHx of HTN, atrial fibrillation COPD ,DM 2 hypothyroidism, hyperlipidemia, presented to [facility] ED with progressive SOB and cough. General surgery consulted for abdominal wall hematoma noted on CT. Patient's daughter at bedside reports patient is not on any anticoagulation. Reports mother has been having chronic cough which has not improved. PMHx: as stated above All: NKDA Fam Hx: non-contributory Review of Systems - Review of Systems Systems not reviewed;Unavailable: Other Past Patient History - Tetanus Immunizations Tetanus Immunization: Unknown - Past Medical History & Family History Past Medical History?: Yes - Past Social History Smoking Status: Never Smoked - CARDIAC Hx Atrial Fibrillation: Yes Hx Cardia Arrhythmia: Yes (A-FIB) Hx Congestive Heart Failure: Yes Hx Hypercholesterolemia: Yes Hx Hypertension: Yes Hx Pacemaker: Yes - PULMONARY Hx Asthma: Yes Hx Chronic Obstructive Pulmonary Disease (COPD): Yes Hx Pneumonia: Yes - NEUROLOGICAL Hx Neurological Disorder: No - HEENT Hx HEENT Problems: No - RENAL Hx Chronic Kidney Disease: Yes - ENDOCRINE/METABOLIC Hx Hypothyroidism: Yes - HEMATOLOGICAL/ONCOLOGICAL Hx Anemia: Yes Hx Human Immunodeficiency Virus (HIV): No - INTEGUMENTARY Hx Dermatological Problems: No - MUSCULOSKELETAL/RHEUMATOLOGICAL Hx Arthritis: Yes Hx Falls: No - GASTROINTESTINAL Hx Gastrointestinal Disorders: Yes Hx Liver Failure: Yes - GENITOURINARY/GYNECOLOGICAL Hx Genitourinary Disorders: No - PSYCHIATRIC Hx Depression: Yes Hx Substance Use: No - SURGICAL HISTORY Hx Surgeries: Yes Hx Cataract Extraction: Yes (BILAT.) Hx Cardiac Catheterization: Yes Other/Comment: HX: CYSTO WITH STENT PLACED. HX: RECONSTRUCTION OF VAGINA. HX: CYSTOSCOPY RIGHT URETERAL STENT EXCHANGE(01/29/18) - ANESTHESIA Hx Anesthesia: Yes Hx Anesthesia Reactions: No Hx Malignant Hyperthermia: No Meds Allergies/Adverse Reactions: Allergies Allergy/AdvReac Type Severity Reaction Status Date / Time metoclopramide [From Reglan] Allergy ANAPHYLAXIS Verified 08/03/18 23:19 - Medications Medications: Current Medications Acetaminophen (Tylenol 325mg Tab) 650 mg PO Q6 PRN PRN Reason: Pain 1-10 Last Admin: 08/20/18 09:25 Dose: 650 mg Albuterol/Ipratropium (Duoneb 3 Mg/0.5 Mg (3 Ml) Ud) 3 ml INH RQ4 PRN PRN Reason: Shortness of Breath Last Admin: 08/20/18 02:35 Dose: 3 ml Albuterol/Ipratropium (Duoneb 3 Mg/0.5 Mg (3 Ml) Ud) 3 ml INH RTID [facility] Last Admin: 08/20/18 14:13 Dose: 3 ml Anastrozole (Arimidex 1 Mg Tab) 1 mg PO DAILY [facility] Last Admin: 08/20/18 09:05 Dose: 1 mg Benzocaine/Menthol (Cepacol Sore Throat) 1 malu PO Q2 PRN PRN Reason: Sore Throat Last Admin: 08/14/18 17:18 Dose: 1 malu Calcium Acetate (Phoslo) 667 mg PO DAILY [facility] Last Admin: 08/20/18 09:01 Dose: 667 mg Dextrose (Dextrose 50% Inj) 0 ml IV STAT PRN; Protocol PRN Reason: Hypoglycemia Protocol Last Admin: 08/18/18 15:47 Dose: 50 ml Dextrose (Glutose 15) 0 gm PO ONCE PRN; Protocol PRN Reason: Hypoglycemia Protocol Dimethicone (Proshield Plus Skin Protectant) 1 applic TOP Q8 [facility] Last Admin: 08/20/18 16:18 Dose: Not Given Ergocalciferol (Drisdol 50,000 Intl Units Cap) 1 cap PO QWK [facility] Last Admin: 08/15/18 08:15 Dose: 1 cap Escitalopram Oxalate (Lexapro) 20 mg PO DAILY [facility] Last Admin: 08/20/18 09:03 Dose: 20 mg Furosemide (Lasix) 40 mg IVP BID [facility] Glucagon (Glucagen Diagnostic Kit) 0 mg IM STAT PRN; Protocol PRN Reason: Hypoglycemia Protocol Guaifenesin/Dextromethorphan (Robitussin Dm) 10 ml PO Q6 PRN PRN Reason: Cough Last Admin: 08/20/18 02:19 Dose: 10 ml Levofloxacin/Dextrose (Levaquin 500mg) 500 mg in 100 mls @ 100 mls/hr IVPB DAILY [facility]; Protocol Last Admin: 08/20/18 09:11 Dose: 100 mls/hr Insulin Detemir (Levemir) 15 units SC HS [facility] Last Admin: 08/19/18 21:32 Dose: 15 unit Insulin Human Lispro (Humalog) 10 units SC TIDAC [facility] Last Admin: 08/20/18 16:17 Dose: Not Given Lactulose (Enulose) 20 gm PO TID [facility] Last Admin: 08/20/18 16:16 Dose: Not Given Lidocaine (Lidoderm) 1 ea TD DAILY [facility] Last Admin: 08/20/18 09:03 Dose: 1 ea Losartan Potassium (Cozaar) 50 mg PO DAILY [facility] Last Admin: 08/20/18 09:07 Dose: 50 mg Rifaximin (Xifaxan) 550 mg PO BID [facility]; Protocol Last Admin: 08/20/18 16:19 Dose: 550 mg Sitagliptin Phosphate (Januvia) 100 mg PO DAILY [facility] Last Admin: 08/20/18 09:10 Dose: 100 mg Tiotropium [place] (Spiriva) 18 mcg INH DAILY [facility] Last Admin: 08/20/18 08:58 Dose: 18 mcg Physical Exam - Constitutional Appears: No Acute Distress, Chronically Ill - Head Exam Head Exam: NORMOCEPHALIC - Eye Exam Eye Exam: EOMI, Normal appearance - ENT Exam ENT Exam: Mucous Membranes Moist - GI/Abdominal Exam GI & Abdominal Exam: Soft. absent: Guarding Additional comments: umbilical hernia ecchymosis along lower abdominal region - Neurological Exam Neurological exam: Alert - Skin Skin Exam: Intact, Warm Additional comments: ecchymosis on lower abd Results - Vital Signs Recent Vital Signs: Last Vital Signs Temp 97.4 F L 08/20/18 16:16 Pulse 94 H 08/20/18 16:16 Resp 18 08/20/18 16:16 BP 102/55 L 08/20/18 16:16 Pulse Ox 100 08/20/18 16:16 - Labs Result Diagrams: 08/20/18 04:30 08/20/18 04:30 Labs: Laboratory Results - last 24 hr 08/19/18 08/19/18 08/20/18 16:05 21:26 04:30 WBC 25.4 H RBC 3.87 Hgb 12.5 Hct 38.3 MCV 99.1 H MCH 32.4 H MCHC 32.7 L RDW 14.2 Plt Count 87 L MPV 10.7 Neut % (Auto) 85.5 H Lymph % (Auto) 5.7 L [place] % (Auto) 7.9 Eos % (Auto) 0.6 Baso % (Auto) 0.3 Neut # (Auto) 21.7 H Lymph # (Auto) 1.4 [place] # (Auto) 2.0 H Eos # (Auto) 0.2 Baso # (Auto) 0.1 Neutrophils % (Manual) 85 H Lymphocytes % (Manual) 10 L Monocytes % (Manual) 5 Platelet Estimate Decreased L Anisocytosis (manual) Slight Tear Drop Cells Slight Ovalocytes Slight Sodium Potassium Chloride Carbon Dioxide Anion Gap BUN Creatinine Est GFR ( Amer) Est GFR (Non-Af Amer) POC Glucose (mg/dL) 243 H 204 H Random Glucose Calcium Total Bilirubin AST ALT Alkaline Phosphatase NT-Pro-B Natriuret Pep Total Protein Albumin Globulin Albumin/Globulin Ratio 08/20/18 08/20/18 08/20/18 04:30 05:05 11:04 WBC RBC Hgb Hct MCV MCH MCHC RDW Plt Count MPV Neut % (Auto) Lymph % (Auto) [place] % (Auto) Eos % (Auto) Baso % (Auto) Neut # (Auto) Lymph # (Auto) [place] # (Auto) Eos # (Auto) Baso # (Auto) Neutrophils % (Manual) Lymphocytes % (Manual) Monocytes % (Manual) Platelet Estimate Anisocytosis (manual) Tear Drop Cells Ovalocytes Sodium 130 L Potassium 3.8 Chloride 83 L Carbon Dioxide 29 Anion Gap 22 H BUN 90 H Creatinine 2.2 H Est GFR ( Amer) 26 Est GFR (Non-Af Amer) 21 POC Glucose (mg/dL) 150 H 120 H Random Glucose 153 H Calcium 11.6 H Total Bilirubin 1.9 H AST 64 H D ALT 47 Alkaline Phosphatase 91 NT-Pro-B Natriuret Pep 2670 H Total Protein 5.9 L Albumin 2.7 L Globulin 3.2 Albumin/Globulin Ratio 0.8 L 08/20/18 15:30 WBC RBC Hgb Hct MCV MCH MCHC RDW Plt Count MPV Neut % (Auto) Lymph % (Auto) [place] % (Auto) Eos % (Auto) Baso % (Auto) Neut # (Auto) Lymph # (Auto) [place] # (Auto) Eos # (Auto) Baso # (Auto) Neutrophils % (Manual) Lymphocytes % (Manual) Monocytes % (Manual) Platelet Estimate Anisocytosis (manual) Tear Drop Cells Ovalocytes Sodium Potassium Chloride Carbon Dioxide Anion Gap BUN Creatinine Est GFR ( Amer) Est GFR (Non-Af Amer) POC Glucose (mg/dL) 97 Random Glucose Calcium Total Bilirubin AST ALT Alkaline Phosphatase NT-Pro-B Natriuret Pep Total Protein Albumin Globulin Albumin/Globulin Ratio Assessment & Plan - Assessment and Plan (Free Text) Assessment: 82F with abd wall hematoma 2/2 coughing bouts Plan: -Resume regular diet - Trend H/H Q6H -No anti-coagulation -Type and screen -PT/PTT -Recommend cough suppressant -Should abdominal wall hematoma expand or bleeding continues would recommend IR intervention prior to operative intervention -Serial abdominal exams -Will monitor D/w Dr. Sofia Velez PGY3 <Terrence Black - Last Filed: 08/24/18 19:54> Meds - Medications Medications: Current Medications Acetaminophen (Tylenol 325mg Tab) 650 mg PO Q6 PRN PRN Reason: Pain 1-10 Albumin Human (Albumin Human 25% (12.5 Gm/50 Ml)) 25 gm IV ONCE ONE Stop: 08/24/18 19:12 Albuterol/Ipratropium (Duoneb 3 Mg/0.5 Mg (3 Ml) Ud) 3 ml INH RQ4 PRN PRN Reason: Shortness of Breath Last Admin: 08/22/18 01:00 Dose: 3 ml Albuterol/Ipratropium (Duoneb 3 Mg/0.5 Mg (3 Ml) Ud) 3 ml INH RTID [facility] Last Admin: 08/24/18 19:17 Dose: 3 ml Anastrozole (Arimidex 1 Mg Tab) 1 mg PO DAILY [facility] Last Admin: 08/22/18 09:00 Dose: Not Given Benzocaine/Menthol (Cepacol Sore Throat) 1 malu PO Q2 PRN PRN Reason: Sore Throat Calcium Acetate (Phoslo) 667 mg PO DAILY [facility] Last Admin: 08/22/18 10:00 Dose: Not Given Dextrose (Dextrose 50% Inj) 0 ml IV STAT PRN; Protocol PRN Reason: Hypoglycemia Protocol Dextrose (Glutose 15) 0 gm PO ONCE PRN; Protocol PRN Reason: Hypoglycemia Protocol Dimethicone (Proshield Plus Skin Protectant) 1 applic TOP Q8 [facility] Last Admin: 08/24/18 17:50 Dose: 1 applic Ergocalciferol (Drisdol 50,000 Intl Units Cap) 1 cap PO QWK [facility] Escitalopram Oxalate (Lexapro) 20 mg PO DAILY [facility] Furosemide (Lasix) 40 mg IVP BID [facility] Glucagon (Glucagen Diagnostic Kit) 0 mg IM STAT PRN; Protocol PRN Reason: Hypoglycemia Protocol Guaifenesin/Dextromethorphan (Robitussin Dm) 10 ml PO Q6 PRN PRN Reason: Cough Last Admin: 08/23/18 10:05 Dose: 10 ml Meropenem 500 mg/ Sodium (Chloride) 100 mls @ 100 mls/hr IVPB DAILY [facility]; Protocol Last Admin: 08/24/18 09:44 Dose: 100 mls/hr Levofloxacin/Dextrose (Levaquin 500mg) 500 mg in 100 mls @ 100 mls/hr IVPB Q48H [facility]; Protocol Last Admin: 08/24/18 01:32 Dose: 100 mls/hr Dobutamine HCl/Dextrose (Dobutamine/Dextrose 5% 500mg/250ml) 500 mg in 250 mls @ 4.388 mls/hr IV .Q24H [facility] Last Admin: 08/23/18 13:11 Dose: 4.388 mls/hr Potassium Chloride (Potassium Chloride 20 Meq/100 Ml) 100 mls @ 50 mls/hr IVPB Q2 [facility] Stop: 08/24/18 19:59 Last Admin: 08/24/18 17:58 Dose: 50 mls/hr Insulin Detemir (Levemir) 15 units SC HS [facility] Insulin Human Lispro (Humalog) 10 units SC TIDAC [facility] Last Admin: 08/22/18 12:31 Dose: Not Given Insulin Human Regular (Humulin R) 0 units SC ACCU-CHECK [facility]; Protocol Last Admin: 08/24/18 17:37 Dose: 2 unit Lactulose (Enulose) 20 gm PO TID [facility] Last Admin: 08/24/18 17:38 Dose: Not Given Lidocaine (Lidoderm) 1 ea TD DAILY [facility] Last Admin: 08/24/18 09:53 Dose: 1 ea Losartan Potassium (Cozaar) 50 mg PO DAILY [facility] Metolazone (Zaroxolyn) 2.5 mg PO DAILY [facility] Phenol/Menthol (Phenaseptic 1.4% Throat [place]) 1 spry MT Q2 PRN PRN Reason: Pain, Mild (1-3) Last Admin: 08/23/18 15:59 Dose: 1 spray Rifaximin (Xifaxan) 550 mg PO BID [facility]; Protocol Last Admin: 08/22/18 09:07 Dose: Not Given Sitagliptin Phosphate (Januvia) 25 mg PO DAILY [facility] Last Admin: 08/22/18 09:01 Dose: Not Given Tiotropium Sun (Spiriva) 18 mcg INH DAILY [facility] Last Admin: 08/24/18 09:51 Dose: Not Given Results - Vital Signs Recent Vital Signs: Last Vital Signs Temp 97.0 F L 08/24/18 16:00 Pulse 106 H 08/24/18 19:47 Resp 10 L 08/24/18 18:00 BP 117/39 L 08/24/18 18:00 Pulse Ox 100 08/24/18 18:00 - Labs Result Diagrams: 08/24/18 06:45 08/24/18 06:45 Labs: Laboratory Results - last 24 hr 08/23/18 08/24/18 08/24/18 21:11 05:19 06:45 WBC 13.0 H RBC 2.96 L Hgb 10.0 L Hct 29.5 L MCV 99.4 H MCH 33.7 H MCHC 33.9 RDW 14.8 H Plt Count 53 L MPV 9.1 Neut % (Auto) 90.8 H Lymph % (Auto) 2.6 L [place] % (Auto) 6.1 Eos % (Auto) 0.4 Baso % (Auto) 0.1 Neut # (Auto) 11.8 H Lymph # (Auto) 0.3 L [place] # (Auto) 0.8 Eos # (Auto) 0.1 Baso # (Auto) 0.0 Neutrophils % (Manual) 90 H Lymphocytes % (Manual) 4 L Monocytes % (Manual) 6 Platelet Estimate Markedly decreased L Large Platelets Present Hypochromasia (manual) Slight Anisocytosis (manual) Slight PT INR APTT Fibrinogen Sodium Potassium Chloride Carbon Dioxide Anion Gap BUN Creatinine Est GFR ( Amer) Est GFR (Non-Af Amer) POC Glucose (mg/dL) 192 H 235 H Random Glucose Lactic Acid Calcium Phosphorus Magnesium Total Bilirubin AST ALT Alkaline Phosphatase Total Protein Albumin Globulin Albumin/Globulin Ratio 08/24/18 08/24/18 08/24/18 06:45 06:45 06:45 WBC RBC Hgb Hct MCV MCH MCHC RDW Plt Count MPV Neut % (Auto) Lymph % (Auto) [place] % (Auto) Eos % (Auto) Baso % (Auto) Neut # (Auto) Lymph # (Auto) [place] # (Auto) Eos # (Auto) Baso # (Auto) Neutrophils % (Manual) Lymphocytes % (Manual) Monocytes % (Manual) Platelet Estimate Large Platelets Hypochromasia (manual) Anisocytosis (manual) PT 15.7 H INR 1.4 APTT 32.2 Fibrinogen 384 Sodium 137 Potassium 3.2 L Chloride 102 Carbon Dioxide 26 Anion Gap 12 BUN 116 H* Creatinine 4.0 H Est GFR ( Amer) 13 Est GFR (Non-Af Amer) 11 POC Glucose (mg/dL) Random Glucose 231 H Lactic Acid 1.5 Calcium 8.7 Phosphorus 5.0 H Magnesium 2.3 Total Bilirubin 1.6 H AST 35 ALT 53 H Alkaline Phosphatase 69 Total Protein 5.3 L Albumin 2.2 L Globulin 3.0 Albumin/Globulin Ratio 0.7 L 08/24/18 08/24/18 11:08 16:50 WBC RBC Hgb Hct MCV MCH MCHC RDW Plt Count MPV Neut % (Auto) Lymph % (Auto) [place] % (Auto) Eos % (Auto) Baso % (Auto) Neut # (Auto) Lymph # (Auto) [place] # (Auto) Eos # (Auto) Baso # (Auto) Neutrophils % (Manual) Lymphocytes % (Manual) Monocytes % (Manual) Platelet Estimate Large Platelets Hypochromasia (manual) Anisocytosis (manual) PT INR APTT Fibrinogen Sodium Potassium Chloride Carbon Dioxide Anion Gap BUN Creatinine Est GFR ( Amer) Est GFR (Non-Af Amer) POC Glucose (mg/dL) 213 H 224 H Random Glucose Lactic Acid Calcium Phosphorus Magnesium Total Bilirubin AST ALT Alkaline Phosphatase Total Protein Albumin Globulin Albumin/Globulin Ratio Attending/Attestation - Attestation I have personally seen and examined this patient.: Yes I have fully participated in the care of the patient.: Yes I have reviewed all pertinent clinical information: Yes Notes (Text): Pt was seen and examined at bedside Agree with above note and assessment Pt with lower abdominal pain and Eccymosis Abdomen: Soft, NT, ND, Eccymosis of Lower abdomen present Labs and radiology reviewed Ass: Abdominal wall hematoma Plan: Q 6h H/H Serial abdominal exam c.w current mx We will f.u Plan d.w pt in detail Risk and benefit explained in detail.
[2018-08-20 18:32] LABS: INR 1.5; PROTHROMBIN TIME 16.8 Seconds (9.8-13.1)
[2018-08-20 18:35] LABS: PARTIAL THROMBOPLASTIN TIME 25.4 Seconds (25.6-37.1)
--- NOTE | 2018-08-20 18:40 | CP.PCM.PN ---
Subjective - Date & Time of Evaluation Date of Evaluation: 08/20/18 Time of Evaluation: 12:00 - Subjective Subjective: patient continues to have some pain oin the lower abd area. CT scan showed mild to mod are aof hge in the lower muscular part of the abd( prob from excessive cough) Also noted slowly progressive increase in ascites. Noted increase in pleural effusion Discussed with radiologist and the amount of fluid in the abdomen is not enough ot warrant tapping. Discussed with daughter about increasing Lasix. Also talked to daughter about the severity of their mother's condition. Objective - Vital Signs/Intake and Output Vital Signs (last 24 hours): Temp Pulse Resp BP Pulse Ox 97.4 F L 94 H 18 102/55 L 100 08/20/18 16:16 08/20/18 16:16 08/20/18 16:16 08/20/18 16:16 08/20/18 16:16 - Medications Medications: Current Medications Acetaminophen (Tylenol 325mg Tab) 650 mg PO Q6 PRN PRN Reason: Pain 1-10 Last Admin: 08/20/18 09:25 Dose: 650 mg Albuterol/Ipratropium (Duoneb 3 Mg/0.5 Mg (3 Ml) Ud) 3 ml INH RQ4 PRN PRN Reason: Shortness of Breath Last Admin: 08/20/18 02:35 Dose: 3 ml Albuterol/Ipratropium (Duoneb 3 Mg/0.5 Mg (3 Ml) Ud) 3 ml INH RTID [facility] Last Admin: 08/20/18 14:13 Dose: 3 ml Anastrozole (Arimidex 1 Mg Tab) 1 mg PO DAILY [facility] Last Admin: 08/20/18 09:05 Dose: 1 mg Benzocaine/Menthol (Cepacol Sore Throat) 1 malu PO Q2 PRN PRN Reason: Sore Throat Last Admin: 08/14/18 17:18 Dose: 1 malu Calcium Acetate (Phoslo) 667 mg PO DAILY [facility] Last Admin: 08/20/18 09:01 Dose: 667 mg Dextrose (Dextrose 50% Inj) 0 ml IV STAT PRN; Protocol PRN Reason: Hypoglycemia Protocol Last Admin: 08/18/18 15:47 Dose: 50 ml Dextrose (Glutose 15) 0 gm PO ONCE PRN; Protocol PRN Reason: Hypoglycemia Protocol Dimethicone (Proshield Plus Skin Protectant) 1 applic TOP Q8 [facility] Last Admin: 08/20/18 16:18 Dose: Not Given Ergocalciferol (Drisdol 50,000 Intl Units Cap) 1 cap PO QWK [facility] Last Admin: 08/15/18 08:15 Dose: 1 cap Escitalopram Oxalate (Lexapro) 20 mg PO DAILY [facility] Last Admin: 08/20/18 09:03 Dose: 20 mg Furosemide (Lasix) 40 mg IVP BID [facility] Glucagon (Glucagen Diagnostic Kit) 0 mg IM STAT PRN; Protocol PRN Reason: Hypoglycemia Protocol Guaifenesin/Dextromethorphan (Robitussin Dm) 10 ml PO Q6 PRN PRN Reason: Cough Last Admin: 08/20/18 02:19 Dose: 10 ml Levofloxacin/Dextrose (Levaquin 500mg) 500 mg in 100 mls @ 100 mls/hr IVPB DAILY [facility]; Protocol Last Admin: 08/20/18 09:11 Dose: 100 mls/hr Insulin Detemir (Levemir) 15 units SC HS [facility] Last Admin: 08/19/18 21:32 Dose: 15 unit Insulin Human Lispro (Humalog) 10 units SC TIDAC [facility] Last Admin: 08/20/18 16:17 Dose: Not Given Lactulose (Enulose) 20 gm PO TID [facility] Last Admin: 08/20/18 16:16 Dose: Not Given Lidocaine (Lidoderm) 1 ea TD DAILY [facility] Last Admin: 08/20/18 09:03 Dose: 1 ea Losartan Potassium (Cozaar) 50 mg PO DAILY [facility] Last Admin: 08/20/18 09:07 Dose: 50 mg Rifaximin (Xifaxan) 550 mg PO BID [facility]; Protocol Last Admin: 08/20/18 16:19 Dose: 550 mg Sitagliptin Phosphate (Januvia) 100 mg PO DAILY [facility] Last Admin: 08/20/18 09:10 Dose: 100 mg Tiotropium [place] (Spiriva) 18 mcg INH DAILY [facility] Last Admin: 08/20/18 08:58 Dose: 18 mcg - Labs Labs: 08/20/18 04:30 08/20/18 04:30 PT 16.8 Seconds (9.8-13.1) H 08/20/18 17:55 INR 1.5 08/20/18 17:55 APTT 25.4 Seconds (25.6-37.1) L 08/20/18 17:55 - Head Exam Head Exam: NORMAL INSPECTION - Eye Exam Eye Exam: Normal appearance - ENT Exam ENT Exam: Mucous Membranes Moist - Respiratory Exam Respiratory Exam: Clear to Ausculation Bilateral - Cardiovascular Exam Cardiovascular Exam: REGULAR RHYTHM - GI/Abdominal Exam GI & Abdominal Exam: Normal Bowel Sounds - Neurological Exam Neurological Exam: Altered, Awake - Psychiatric Exam Psychiatric exam: Agitated, Normal Mood Assessment and Plan (1) CHF (congestive heart failure) Status: Acute (2) Pleural effusion Status: Acute (3) Atrial fibrillation Status: Acute (4) Severe mitral insufficiency Status: Acute (5) DM2 (diabetes mellitus, type 2) Status: Chronic (6) HTN (hypertension) Status: Chronic (7) Pulmonary hypertension Status: Chronic (8) Anasarca Status: Acute - Assessment and Plan (Free Text) Plan: Patient has multisystem failure and daughter was informed about it. Discussed with Dr Chin and will keep diuretic and add Zaroxylin if BP id better Hold off on BP meds for now, talked to daughter about patient's severe condition and grave prognosis. She refused to listen to me and refused to believe what I was telling her. Other physicians have talked to her in the past re: severity of illness will continue to monitor labs and CXR,
[2018-08-20 19:20] LABS: HEMOGLOBIN 12.5 g/dL (12.0-16.0); MEAN CELL VOLUME 96.5 fl (81.0-99.0); MEAN CORPUSCULAR HEMOGLOBIN 32.3 pg (27.0-31.0); MEAN CORPUSCULAR HGB CONC 33.4 g/dL (33.0-37.0); RBC 3.88 Mil/uL (3.80-5.20); RED CELL DISTRIBUTION WIDTH 13.9 % (11.5-14.5)
[2018-08-20] MEDS: Insulin Detemir 100 Units/ml Inj SC SCH (21:50)
[2018-08-21] MEDS: Albuterol-Ipratrop 3 mg / 0.5 (3 ml) UD INH PRN (01:06)
[2018-08-21 05:37] LABS: HEMOGLOBIN 11.8 g/dL (12.0-16.0); MEAN CELL VOLUME 98.2 fl (81.0-99.0); MEAN CORPUSCULAR HEMOGLOBIN 32.7 pg (27.0-31.0); MEAN CORPUSCULAR HGB CONC 33.3 g/dL (33.0-37.0); RBC 3.61 Mil/uL (3.80-5.20); RED CELL DISTRIBUTION WIDTH 14.2 % (11.5-14.5); WHITE BLOOD COUNT 25.3 K/uL (4.8-10.8)
--- NOTE | 2018-08-21 07:19 | CP.PCM.PN ---
<Anil Montelongo - Last Filed: 08/21/18 07:16> Subjective - Date & Time of Evaluation Date of Evaluation: 08/21/18 Time of Evaluation: 07:16 - Subjective Subjective: SURGERY NOTE FOR DR. BLACK 82F seen and examined at bedside. Patient resting comfortably. No acute events overnight. Objective - Vital Signs/Intake and Output Vital Signs (last 24 hours): Temp Pulse Resp BP Pulse Ox 97.6 F 86 18 98/62 L 96 08/21/18 04:48 08/21/18 04:48 08/21/18 04:48 08/21/18 04:48 08/21/18 04:48 - Medications Medications: Current Medications Acetaminophen (Tylenol 325mg Tab) 650 mg PO Q6 PRN PRN Reason: Pain 1-10 Last Admin: 08/20/18 09:25 Dose: 650 mg Albuterol/Ipratropium (Duoneb 3 Mg/0.5 Mg (3 Ml) Ud) 3 ml INH RQ4 PRN PRN Reason: Shortness of Breath Last Admin: 08/21/18 01:06 Dose: 3 ml Albuterol/Ipratropium (Duoneb 3 Mg/0.5 Mg (3 Ml) Ud) 3 ml INH RTID [facility] Last Admin: 08/20/18 20:09 Dose: 3 ml Anastrozole (Arimidex 1 Mg Tab) 1 mg PO DAILY [facility] Last Admin: 08/20/18 09:05 Dose: 1 mg Benzocaine/Menthol (Cepacol Sore Throat) 1 malu PO Q2 PRN PRN Reason: Sore Throat Last Admin: 08/14/18 17:18 Dose: 1 malu Calcium Acetate (Phoslo) 667 mg PO DAILY [facility] Last Admin: 08/20/18 09:01 Dose: 667 mg Dextrose (Dextrose 50% Inj) 0 ml IV STAT PRN; Protocol PRN Reason: Hypoglycemia Protocol Last Admin: 08/18/18 15:47 Dose: 50 ml Dextrose (Glutose 15) 0 gm PO ONCE PRN; Protocol PRN Reason: Hypoglycemia Protocol Dimethicone (Proshield Plus Skin Protectant) 1 applic TOP Q8 [facility] Last Admin: 08/20/18 16:18 Dose: Not Given Ergocalciferol (Drisdol 50,000 Intl Units Cap) 1 cap PO QWK [facility] Last Admin: 08/15/18 08:15 Dose: 1 cap Escitalopram Oxalate (Lexapro) 20 mg PO DAILY [facility] Last Admin: 08/20/18 09:03 Dose: 20 mg Furosemide (Lasix) 40 mg IVP BID [facility] Glucagon (Glucagen Diagnostic Kit) 0 mg IM STAT PRN; Protocol PRN Reason: Hypoglycemia Protocol Guaifenesin/Dextromethorphan (Robitussin Dm) 10 ml PO Q6 PRN PRN Reason: Cough Last Admin: 08/20/18 21:16 Dose: 10 ml Levofloxacin/Dextrose (Levaquin 500mg) 500 mg in 100 mls @ 100 mls/hr IVPB DAILY [facility]; Protocol Last Admin: 08/20/18 09:11 Dose: 100 mls/hr Insulin Detemir (Levemir) 15 units SC HS [facility] Last Admin: 08/20/18 21:50 Dose: Not Given Insulin Human Lispro (Humalog) 10 units SC TIDAC [facility] Last Admin: 08/20/18 16:17 Dose: Not Given Lactulose (Enulose) 20 gm PO TID [facility] Last Admin: 08/20/18 16:16 Dose: Not Given Lidocaine (Lidoderm) 1 ea TD DAILY [facility] Last Admin: 08/20/18 09:03 Dose: 1 ea Losartan Potassium (Cozaar) 50 mg PO DAILY [facility] Last Admin: 08/20/18 09:07 Dose: 50 mg Metolazone (Zaroxolyn) 2.5 mg PO DAILY [facility] Rifaximin (Xifaxan) 550 mg PO BID [facility]; Protocol Last Admin: 08/20/18 16:19 Dose: 550 mg Sitagliptin Phosphate (Januvia) 100 mg PO DAILY [facility] Last Admin: 08/20/18 09:10 Dose: 100 mg Tiotropium [place] (Spiriva) 18 mcg INH DAILY [facility] Last Admin: 08/20/18 08:58 Dose: 18 mcg - Labs Labs: 08/21/18 04:25 08/20/18 04:30 PT 16.8 Seconds (9.8-13.1) H 08/20/18 17:55 INR 1.5 08/20/18 17:55 APTT 25.4 Seconds (25.6-37.1) L 08/20/18 17:55 - Constitutional Appears: Non-toxic, No Acute Distress - Respiratory Exam Respiratory Exam: NORMAL BREATHING PATTERN - Cardiovascular Exam Cardiovascular Exam: REGULAR RHYTHM, +S1, +S2 - GI/Abdominal Exam GI & Abdominal Exam: Soft, Tenderness (lower abdomen tenderness). absent: Distended, Firm, Guarding, Rigid, Rebound Additional comments: improving ecchymosis No palpable fluid collection - Skin Skin Exam: Dry, Intact, Warm Assessment and Plan - Assessment and Plan (Free Text) Assessment: 82F with abdominal wall hematoma Plan: - Monitor vitals - Monitor hemoglobin - If becomes unstable will recommend IR embolization Further recs discuss with Dr. Sofia Montelongo, PGY3 <Terrence Black - Last Filed: 08/24/18 19:56> Objective - Vital Signs/Intake and Output Vital Signs (last 24 hours): Temp Pulse Resp BP Pulse Ox 97.0 F L 106 H 10 L 117/39 L 100 08/24/18 16:00 08/24/18 19:47 08/24/18 18:00 08/24/18 18:00 08/24/18 18:00 Intake and Output: 08/24/18 08/25/18 18:59 06:59 Intake Total 1361 Output Total 250 Balance 1111 - Medications Medications: Current Medications Acetaminophen (Tylenol 325mg Tab) 650 mg PO Q6 PRN PRN Reason: Pain 1-10 Albumin Human (Albumin Human 25% (12.5 Gm/50 Ml)) 25 gm IV ONCE ONE Stop: 08/24/18 19:12 Albuterol/Ipratropium (Duoneb 3 Mg/0.5 Mg (3 Ml) Ud) 3 ml INH RQ4 PRN PRN Reason: Shortness of Breath Last Admin: 08/22/18 01:00 Dose: 3 ml Albuterol/Ipratropium (Duoneb 3 Mg/0.5 Mg (3 Ml) Ud) 3 ml INH RTID [facility] Last Admin: 08/24/18 19:17 Dose: 3 ml Anastrozole (Arimidex 1 Mg Tab) 1 mg PO DAILY [facility] Last Admin: 08/22/18 09:00 Dose: Not Given Benzocaine/Menthol (Cepacol Sore Throat) 1 malu PO Q2 PRN PRN Reason: Sore Throat Calcium Acetate (Phoslo) 667 mg PO DAILY [facility] Last Admin: 08/22/18 10:00 Dose: Not Given Dextrose (Dextrose 50% Inj) 0 ml IV STAT PRN; Protocol PRN Reason: Hypoglycemia Protocol Dextrose (Glutose 15) 0 gm PO ONCE PRN; Protocol PRN Reason: Hypoglycemia Protocol Dimethicone (Proshield Plus Skin Protectant) 1 applic TOP Q8 [facility] Last Admin: 08/24/18 17:50 Dose: 1 applic Ergocalciferol (Drisdol 50,000 Intl Units Cap) 1 cap PO QWK [facility] Escitalopram Oxalate (Lexapro) 20 mg PO DAILY [facility] Furosemide (Lasix) 40 mg IVP BID [facility] Glucagon (Glucagen Diagnostic Kit) 0 mg IM STAT PRN; Protocol PRN Reason: Hypoglycemia Protocol Guaifenesin/Dextromethorphan (Robitussin Dm) 10 ml PO Q6 PRN PRN Reason: Cough Last Admin: 08/23/18 10:05 Dose: 10 ml Meropenem 500 mg/ Sodium (Chloride) 100 mls @ 100 mls/hr IVPB DAILY [facility]; Protocol Last Admin: 08/24/18 09:44 Dose: 100 mls/hr Levofloxacin/Dextrose (Levaquin 500mg) 500 mg in 100 mls @ 100 mls/hr IVPB Q48H [facility]; Protocol Last Admin: 08/24/18 01:32 Dose: 100 mls/hr Dobutamine HCl/Dextrose (Dobutamine/Dextrose 5% 500mg/250ml) 500 mg in 250 mls @ 4.388 mls/hr IV .Q24H [facility] Last Admin: 08/23/18 13:11 Dose: 4.388 mls/hr Potassium Chloride (Potassium Chloride 20 Meq/100 Ml) 100 mls @ 50 mls/hr IVPB Q2 [facility] Stop: 08/24/18 19:59 Last Admin: 08/24/18 17:58 Dose: 50 mls/hr Insulin Detemir (Levemir) 15 units SC HS [facility] Insulin Human Lispro (Humalog) 10 units SC TIDAC [facility] Last Admin: 08/22/18 12:31 Dose: Not Given Insulin Human Regular (Humulin R) 0 units SC ACCU-CHECK [facility]; Protocol Last Admin: 08/24/18 17:37 Dose: 2 unit Lactulose (Enulose) 20 gm PO TID [facility] Last Admin: 08/24/18 17:38 Dose: Not Given Lidocaine (Lidoderm) 1 ea TD DAILY [facility] Last Admin: 08/24/18 09:53 Dose: 1 ea Losartan Potassium (Cozaar) 50 mg PO DAILY [facility] Metolazone (Zaroxolyn) 2.5 mg PO DAILY [facility] Phenol/Menthol (Phenaseptic 1.4% Throat [place]) 1 spry MT Q2 PRN PRN Reason: Pain, Mild (1-3) Last Admin: 08/23/18 15:59 Dose: 1 spray Rifaximin (Xifaxan) 550 mg PO BID [facility]; Protocol Last Admin: 08/22/18 09:07 Dose: Not Given Sitagliptin Phosphate (Januvia) 25 mg PO DAILY [facility] Last Admin: 08/22/18 09:01 Dose: Not Given Tiotropium [place] (Spiriva) 18 mcg INH DAILY [facility] Last Admin: 08/24/18 09:51 Dose: Not Given - Labs Labs: 08/24/18 06:45 08/24/18 06:45 PT 15.7 Seconds (9.8-13.1) H 08/24/18 06:45 INR 1.4 08/24/18 06:45 APTT 32.2 Seconds (25.6-37.1) 08/24/18 06:45 Attending/Attestation - Attestation I have personally seen and examined this patient.: Yes I have fully participated in the care of the patient.: Yes I have reviewed all pertinent clinical information, including history, physical exam and plan: Yes Notes (Text): Pt was seen and examined at bedside Agree with above note and assessment Pt is stable clinically HB stable Abdominal wall exam is unchanged Plan dRhondaw pt's daughter in detail
[2018-08-21] MEDS: Insulin Lispro (humaLOG) 100 Units/ml Inj SC SCH ×3 (07:30→18:39)
[2018-08-21] MEDS: Albuterol-Ipratrop 3 mg / 0.5 (3 ml) UD INH SCH ×3 (07:58→19:48)
--- NOTE | 2018-08-21 08:38 | CP.PCM.PN ---
Subjective - Date & Time of Evaluation Date of Evaluation: 08/21/18 Time of Evaluation: 08:46 - Subjective Subjective: SOB IMPROVED CALMER TODAY NO APPARENT RESPIRATORY DISTRESS VSS O2 SAT 95% ON NC O2 Objective - Vital Signs/Intake and Output Vital Signs (last 24 hours): Temp Pulse Resp BP Pulse Ox 97.5 F L 85 20 96/57 L 95 08/21/18 07:36 08/21/18 07:36 08/21/18 07:36 08/21/18 07:36 08/21/18 07:36 - Medications Medications: Current Medications Acetaminophen (Tylenol 325mg Tab) 650 mg PO Q6 PRN PRN Reason: Pain 1-10 Last Admin: 08/20/18 09:25 Dose: 650 mg Albuterol/Ipratropium (Duoneb 3 Mg/0.5 Mg (3 Ml) Ud) 3 ml INH RQ4 PRN PRN Reason: Shortness of Breath Last Admin: 08/21/18 01:06 Dose: 3 ml Albuterol/Ipratropium (Duoneb 3 Mg/0.5 Mg (3 Ml) Ud) 3 ml INH RTID [facility] Last Admin: 08/21/18 07:58 Dose: 3 ml Anastrozole (Arimidex 1 Mg Tab) 1 mg PO DAILY [facility] Last Admin: 08/20/18 09:05 Dose: 1 mg Benzocaine/Menthol (Cepacol Sore Throat) 1 malu PO Q2 PRN PRN Reason: Sore Throat Last Admin: 08/14/18 17:18 Dose: 1 malu Calcium Acetate (Phoslo) 667 mg PO DAILY [facility] Last Admin: 08/20/18 09:01 Dose: 667 mg Dextrose (Dextrose 50% Inj) 0 ml IV STAT PRN; Protocol PRN Reason: Hypoglycemia Protocol Last Admin: 08/18/18 15:47 Dose: 50 ml Dextrose (Glutose 15) 0 gm PO ONCE PRN; Protocol PRN Reason: Hypoglycemia Protocol Dimethicone (Proshield Plus Skin Protectant) 1 applic TOP Q8 [facility] Last Admin: 08/20/18 16:18 Dose: Not Given Ergocalciferol (Drisdol 50,000 Intl Units Cap) 1 cap PO QWK [facility] Last Admin: 08/15/18 08:15 Dose: 1 cap Escitalopram Oxalate (Lexapro) 20 mg PO DAILY [facility] Last Admin: 08/20/18 09:03 Dose: 20 mg Furosemide (Lasix) 40 mg IVP BID [facility] Glucagon (Glucagen Diagnostic Kit) 0 mg IM STAT PRN; Protocol PRN Reason: Hypoglycemia Protocol Guaifenesin/Dextromethorphan (Robitussin Dm) 10 ml PO Q6 PRN PRN Reason: Cough Last Admin: 08/20/18 21:16 Dose: 10 ml Levofloxacin/Dextrose (Levaquin 500mg) 500 mg in 100 mls @ 100 mls/hr IVPB DAILY [facility]; Protocol Last Admin: 08/20/18 09:11 Dose: 100 mls/hr Insulin Detemir (Levemir) 15 units SC HS [facility] Last Admin: 08/20/18 21:50 Dose: Not Given Insulin Human Lispro (Humalog) 10 units SC TIDAC [facility] Last Admin: 08/20/18 16:17 Dose: Not Given Lactulose (Enulose) 20 gm PO TID [facility] Last Admin: 08/20/18 16:16 Dose: Not Given Lidocaine (Lidoderm) 1 ea TD DAILY [facility] Last Admin: 08/20/18 09:03 Dose: 1 ea Losartan Potassium (Cozaar) 50 mg PO DAILY [facility] Last Admin: 08/20/18 09:07 Dose: 50 mg Metolazone (Zaroxolyn) 2.5 mg PO DAILY [facility] Rifaximin (Xifaxan) 550 mg PO BID [facility]; Protocol Last Admin: 08/20/18 16:19 Dose: 550 mg Sitagliptin Phosphate (Januvia) 100 mg PO DAILY [facility] Last Admin: 08/20/18 09:10 Dose: 100 mg Tiotropium [place] (Spiriva) 18 mcg INH DAILY [facility] Last Admin: 08/20/18 08:58 Dose: 18 mcg - Labs Labs: 08/21/18 04:25 08/20/18 04:30 PT 16.8 Seconds (9.8-13.1) H 08/20/18 17:55 INR 1.5 08/20/18 17:55 APTT 25.4 Seconds (25.6-37.1) L 08/20/18 17:55 - Constitutional Appears: No Acute Distress, Chronically Ill - Head Exam Head Exam: ATRAUMATIC, NORMAL INSPECTION, NORMOCEPHALIC - Eye Exam Eye Exam: EOMI, Normal appearance, PERRL Pupil Exam: NORMAL ACCOMODATION, PERRL - ENT Exam ENT Exam: Mucous Membranes Moist, Normal Exam - Neck Exam Neck Exam: Full ROM, Normal Inspection. absent: Lymphadenopathy - Respiratory Exam Respiratory Exam: Decreased Breath Sounds, Prolonged Expiratory Phase, Rales, NORMAL BREATHING PATTERN Additional comments: ON NC O2 - Cardiovascular Exam Cardiovascular Exam: REGULAR RHYTHM, +S1, +S2. absent: Murmur - GI/Abdominal Exam GI & Abdominal Exam: Soft, Normal Bowel Sounds. absent: Tenderness - Rectal Exam Rectal Exam: NORMAL INSPECTION - Extremities Exam Extremities Exam: Full ROM, Pedal Edema. absent: Joint Swelling - Back Exam Back Exam: NORMAL INSPECTION - Neurological Exam Additional comments: EASILY AROUSABLE - Skin Skin Exam: Dry, Intact, Warm Assessment and Plan - Assessment and Plan (Free Text) Assessment: RESPIRATORY FAILURE--CHF/VALVULAR HEART DZ/ACUTE ASTHMA/--R/O SUPERIMPOSED PULMONARY INFECTION PLEURAL EFFUSION ABD WALL HEMATOMA/ASCITES Plan: CONTINUE CURRENT RX WILL CONTINUE PRESENT RX WILL REFER TO IR FOR POSSIBLE REPEAT OF THORACENTESES OR PARACENTESES[SYMPTOMATIC/THERAPUETIC] PROGNOSIS IS POOR
[2018-08-21] MEDS: levoFLOXacin 500 mg in D5W 500 MG/100 ML BAG IVPB SCH (08:47)
[2018-08-21] MEDS: Tiotropium 18 mcg Cap For Inhalation INH SCH (08:49)
[2018-08-21] MEDS: Proshield Plus GEL TOP SCH ×2 (09:00→18:39)
[2018-08-21] MEDS: Lidocaine 5% Patch TD SCH (09:00)
[2018-08-21] MEDS ORDERED: metOLazone 2.5 MG TAB PO SCH (09:00)
--- NOTE | 2018-08-21 09:20 | CP.PCM.CON ---
History of Present Illness - History of Present Illness History of Present Illness: pt is seen and examined, full consult is dictated #[id number] 1.[facility] 2.chf 3.mod-severe TR 4.HTN 5.DM 6.Ascites check urine lytes, osm, cr may need temporary HD Past Patient History - Tetanus Immunizations Tetanus Immunization: Unknown - Past Medical History & Family History Past Medical History?: Yes - Past Social History Smoking Status: Never Smoked - CARDIAC Hx Atrial Fibrillation: Yes Hx Cardia Arrhythmia: Yes (A-FIB) Hx Congestive Heart Failure: Yes Hx Hypercholesterolemia: Yes Hx Hypertension: Yes Hx Pacemaker: Yes - PULMONARY Hx Asthma: Yes Hx Chronic Obstructive Pulmonary Disease (COPD): Yes Hx Pneumonia: Yes - NEUROLOGICAL Hx Neurological Disorder: No - HEENT Hx HEENT Problems: No - RENAL Hx Chronic Kidney Disease: Yes - ENDOCRINE/METABOLIC Hx Hypothyroidism: Yes - HEMATOLOGICAL/ONCOLOGICAL Hx Anemia: Yes Hx Human Immunodeficiency Virus (HIV): No - INTEGUMENTARY Hx Dermatological Problems: No - MUSCULOSKELETAL/RHEUMATOLOGICAL Hx Arthritis: Yes Hx Falls: No - GASTROINTESTINAL Hx Gastrointestinal Disorders: Yes Hx Liver Failure: Yes - GENITOURINARY/GYNECOLOGICAL Hx Genitourinary Disorders: No - PSYCHIATRIC Hx Depression: Yes Hx Substance Use: No - SURGICAL HISTORY Hx Surgeries: Yes Hx Cataract Extraction: Yes (BILAT.) Hx Cardiac Catheterization: Yes Other/Comment: HX: CYSTO WITH STENT PLACED. HX: RECONSTRUCTION OF VAGINA. HX: CYSTOSCOPY RIGHT URETERAL STENT EXCHANGE(01/29/18) - ANESTHESIA Hx Anesthesia: Yes Hx Anesthesia Reactions: No Hx Malignant Hyperthermia: No Meds Allergies/Adverse Reactions: Allergies Allergy/AdvReac Type Severity Reaction Status Date / Time metoclopramide [From Reglan] Allergy ANAPHYLAXIS Verified 08/03/18 23:19 - Medications Medications: Current Medications Acetaminophen (Tylenol 325mg Tab) 650 mg PO Q6 PRN PRN Reason: Pain 1-10 Last Admin: 08/20/18 09:25 Dose: 650 mg Albuterol/Ipratropium (Duoneb 3 Mg/0.5 Mg (3 Ml) Ud) 3 ml INH RQ4 PRN PRN Reason: Shortness of Breath Last Admin: 08/21/18 01:06 Dose: 3 ml Albuterol/Ipratropium (Duoneb 3 Mg/0.5 Mg (3 Ml) Ud) 3 ml INH RTID [facility] Last Admin: 08/21/18 07:58 Dose: 3 ml Anastrozole (Arimidex 1 Mg Tab) 1 mg PO DAILY [facility] Last Admin: 08/21/18 08:50 Dose: 1 mg Benzocaine/Menthol (Cepacol Sore Throat) 1 malu PO Q2 PRN PRN Reason: Sore Throat Last Admin: 08/14/18 17:18 Dose: 1 malu Calcium Acetate (Phoslo) 667 mg PO DAILY [facility] Last Admin: 08/21/18 08:50 Dose: 667 mg Dextrose (Dextrose 50% Inj) 0 ml IV STAT PRN; Protocol PRN Reason: Hypoglycemia Protocol Last Admin: 08/18/18 15:47 Dose: 50 ml Dextrose (Glutose 15) 0 gm PO ONCE PRN; Protocol PRN Reason: Hypoglycemia Protocol Dimethicone (Proshield Plus Skin Protectant) 1 applic TOP Q8 [facility] Last Admin: 08/20/18 16:18 Dose: Not Given Ergocalciferol (Drisdol 50,000 Intl Units Cap) 1 cap PO QWK [facility] Last Admin: 08/15/18 08:15 Dose: 1 cap Escitalopram Oxalate (Lexapro) 20 mg PO DAILY [facility] Last Admin: 08/21/18 08:50 Dose: 20 mg Furosemide (Lasix) 40 mg IVP BID [facility] Glucagon (Glucagen Diagnostic Kit) 0 mg IM STAT PRN; Protocol PRN Reason: Hypoglycemia Protocol Guaifenesin/Dextromethorphan (Robitussin Dm) 10 ml PO Q6 PRN PRN Reason: Cough Last Admin: 08/20/18 21:16 Dose: 10 ml Levofloxacin/Dextrose (Levaquin 500mg) 500 mg in 100 mls @ 100 mls/hr IVPB DAILY [facility]; Protocol Last Admin: 08/21/18 08:47 Dose: 100 mls/hr Insulin Detemir (Levemir) 15 units SC HS [facility] Last Admin: 08/20/18 21:50 Dose: Not Given Insulin Human Lispro (Humalog) 10 units SC TIDAC [facility] Last Admin: 08/20/18 16:17 Dose: Not Given Lactulose (Enulose) 20 gm PO TID [facility] Last Admin: 08/21/18 08:54 Dose: 20 gm Lidocaine (Lidoderm) 1 ea TD DAILY [facility] Last Admin: 08/20/18 09:03 Dose: 1 ea Losartan Potassium (Cozaar) 50 mg PO DAILY [facility] Last Admin: 08/21/18 08:50 Dose: Not Given Metolazone (Zaroxolyn) 2.5 mg PO DAILY [facility] Last Admin: 08/21/18 08:49 Dose: 2.5 mg Rifaximin (Xifaxan) 550 mg PO BID [facility]; Protocol Last Admin: 08/21/18 08:49 Dose: 550 mg Sitagliptin Phosphate (Januvia) 100 mg PO DAILY [facility] Last Admin: 08/21/18 08:49 Dose: 100 mg Tiotropium [place] (Spiriva) 18 mcg INH DAILY [facility] Last Admin: 08/21/18 08:49 Dose: 18 mcg Results - Vital Signs Recent Vital Signs: Last Vital Signs Temp 97.5 F L 08/21/18 07:36 Pulse 85 08/21/18 07:36 Resp 20 08/21/18 07:36 BP 96/57 L 08/21/18 07:36 Pulse Ox 95 08/21/18 07:36 - Labs Result Diagrams: 08/21/18 04:25 08/21/18 14:05 Labs: Laboratory Results - last 24 hr 08/19/18 08/20/18 08/20/18 16:05 05:05 11:04 WBC RBC Hgb Hct MCV MCH MCHC RDW Plt Count PT INR APTT POC Glucose (mg/dL) 243 H 150 H 120 H Blood Type Antibody Screen BBK History Checked 08/20/18 08/20/18 08/20/18 15:30 17:55 17:55 WBC RBC Hgb Hct MCV MCH MCHC RDW Plt Count PT 16.8 H INR 1.5 APTT 25.4 L POC Glucose (mg/dL) 97 Blood Type A POSITIVE Antibody Screen Negative BBK History Checked Patient has bt 08/20/18 08/20/18 08/21/18 18:46 21:05 04:25 WBC 23.0 H 25.3 H RBC 3.88 3.61 L Hgb 12.5 11.8 L Hct 37.4 35.5 MCV 96.5 D 98.2 MCH 32.3 H 32.7 H MCHC 33.4 33.3 RDW 13.9 14.2 Plt Count 92 L 74 L PT INR APTT POC Glucose (mg/dL) 136 H Blood Type Antibody Screen BBK History Checked 08/21/18 05:02 WBC RBC Hgb Hct MCV MCH MCHC RDW Plt Count PT INR APTT POC Glucose (mg/dL) 169 H Blood Type Antibody Screen BBK History Checked
--- NOTE | 2018-08-21 11:04 | CP.PCM.CON ---
History of Present Illness - History of Present Illness History of Present Illness: 82 year old female with chronic atrial fibrillation, PPM, HTN, mitral regurgitation , cirrhosis presents with dyspnea and is being treated for CHF and Pneumonia Thus far all cultures negative and WBC rising despite IV antibiotics ID consulted for this Review of Systems - Constitutional Constitutional: absent: As Per HPI, Anorexia, Chills, Daytime Sleepiness, E xcessive Sweating, Fatigue, Fever, Frequent Falls, Headache, Increased Appetite, Lethargy, Malaise, Night Sweats, Snoring, Sleep Apnea, Weight Gain, Weight Loss, Weakness, Other - EENT Eyes: absent: As Per HPI, Blind Spots, Blurred Vision, Change in Vision, Dec reased Night Vision, Diplopia, Discharge, Dry Eye, Exophthalmos, Floaters, Irritation, Itchy Eyes, Loss of Peripheral Vision, Pain, Photophobia, Requires Corrective Lenses, Sees Flashes, Spots in Vision, Tunnel Vision, Other Visual Disturbances, Loss of Vision, Other Ears: absent: As Per HPI, Decreased Hearing, Ear Discharge, Ear Pain, Tinnitus, Abnormal Hearing, Disequilibrium, Dizziness, Other Nose/Mouth/Throat: absent: As Per HPI, Epistaxis, Nasal Congestion, Nasal Discharge, Nasal Obstruction, Nasal Trauma, Nose Pain, Post Nasal Drip, Sinus Pain, Sinus Pressure, Bleeding Gums, Change in Voice, Dental Pain, Dry Mouth, Dysphagia, Halitosis, Hoarsness, Lip Swelling, Mouth Lesions, Mouth Pain, Odynophagia, Sore Throat, Throat Swelling, Tongue Swelling, Facial Pain, Neck Pain, Neck Mass, Other - Cardiovascular Cardiovascular: Dyspnea - Respiratory Respiratory: Cough, Dyspnea - Gastrointestinal Gastrointestinal: absent: As Per HPI, Abdominal Pain, Belching, Bloating, Change in Bowel Habits, Change in Stool Character, Coffee Ground Emesis, Constipation, Cramping, Diarrhea, Dyspepsia, Dysphagia, Early Satiety, Excessive Flatus, Fecal Incontinence, Heartburn, Hematemesis, Hematochezia, Loose Stools, Melena, Nausea, Odynophagia, Temesmus, Vomiting, Other - Genitourinary Genitourinary: absent: As Per HPI, Change in Urinary Stream, Difficulty Urinating, Dysuria, Flank Pain, Hematuria, Pyuria, Nocturia, Urinary Incontinence, Urinary Frequency, Urinary Hesitance, Urinary Urgency, Voiding Freq/Small Amts, Freq UTI, Hx Renal/Bladder Calculi, Hx /Renal Surgery, Bladder Distension, Other - Musculoskeletal Musculoskeletal: absent: As Per HPI, Abnormal Gait, Arthralgias, Atrophy, Back Pain, Deformity, Joint Swelling, Limited Range of Motion, Loss of Height, Muscle Cramps, Muscle Weakness, Myalgias, Neck Pain, Numbness, Radiating Pain into Limb, Stiffness, Tingling, Other - Integumentary Integumentary: absent: As Per HPI, Acne, Alopecia, Bleeding Lesions, Change in Hair, Change in Nails, Change in Pigmentation, Changing Lesions, Dry Skin, Erythema, Furuncle, Hirsutism, Lesions, New Lesions, Non-Healing Lesions, Photosensitivity, Pruritus, Rash, Skin Pain, Skin Ulcer, Sores, Striae, Swelling, Unusual Bruising, Wounds, Jaundice, Other - Neurological Neurological: absent: As Per HPI, Abnormal Gait, Abnormal Hearing, Abnormal Movements, Abnormal Speech, Behavioral Changes, Burning Sensations, Confusion, Convulsions, Disequilibrium, Dizziness, Numbness, Focal Weakness, Frequent Falls, Headaches, Lack of Coordination, Loss of Vision, Memory Loss, Pares thesias, Radicular Pain, Restless Legs, Sensory Deficit, Syncope, Tingling, Tremor, Vertigo, Weakness, Other Visual Disturbances, Other - Psychiatric Psychiatric: absent: As Per HPI, Abnormal Sleep Pattern, Anhedonia, Anxiety, Auditory Hallucinations, Behavioral Changes, Change in Appetite, Change in Libido, Confusion, Depression, Difficulty Concentrating, Hallucinations, Homicidal Ideation, Hopelessness, Irritability, Memory Loss, Mood Swings, Panic Attacks, Paranoia, Suicidal Ideation, Visual Hallucinations, Tactile Hallucinations, Other - Endocrine Endocrine: absent: As Per HPI, Change in Body Appearance, Change in Libido, Cold Intolorance, Deepening of Voice, Excessive Sweating, Fatigue, Flushing, Heat Intolorance, Increase in Ring/Shoe/Hat Size, Palpitations, Polydipsia, Polyphagia, Polyuria, Other - Hematologic/Lymphatic Hematologic: absent: As Per HPI, Easy Bleeding, Easy Bruising, Lymphadenopathy, Other Past Patient History - Tetanus Immunizations Tetanus Immunization: Unknown - Past Medical History & Family History Past Medical History?: Yes - Past Social History Smoking Status: Never Smoked - CARDIAC Hx Atrial Fibrillation: Yes Hx Cardia Arrhythmia: Yes (A-FIB) Hx Congestive Heart Failure: Yes Hx Hypercholesterolemia: Yes Hx Hypertension: Yes Hx Pacemaker: Yes - PULMONARY Hx Asthma: Yes Hx Chronic Obstructive Pulmonary Disease (COPD): Yes Hx Pneumonia: Yes - NEUROLOGICAL Hx Neurological Disorder: No - HEENT Hx HEENT Problems: No - RENAL Hx Chronic Kidney Disease: Yes - ENDOCRINE/METABOLIC Hx Hypothyroidism: Yes - HEMATOLOGICAL/ONCOLOGICAL Hx Anemia: Yes Hx Human Immunodeficiency Virus (HIV): No - INTEGUMENTARY Hx Dermatological Problems: No - MUSCULOSKELETAL/RHEUMATOLOGICAL Hx Arthritis: Yes Hx Falls: No - GASTROINTESTINAL Hx Gastrointestinal Disorders: Yes Hx Liver Failure: Yes - GENITOURINARY/GYNECOLOGICAL Hx Genitourinary Disorders: No - PSYCHIATRIC Hx Depression: Yes Hx Substance Use: No - SURGICAL HISTORY Hx Surgeries: Yes Hx Cataract Extraction: Yes (BILAT.) Hx Cardiac Catheterization: Yes Other/Comment: HX: CYSTO WITH STENT PLACED. HX: RECONSTRUCTION OF VAGINA. HX: CYSTOSCOPY RIGHT URETERAL STENT EXCHANGE(01/29/18) - ANESTHESIA Hx Anesthesia: Yes Hx Anesthesia Reactions: No Hx Malignant Hyperthermia: No Meds Allergies/Adverse Reactions: Allergies Allergy/AdvReac Type Severity Reaction Status Date / Time metoclopramide [From Reglan] Allergy ANAPHYLAXIS Verified 08/03/18 23:19 - Medications Medications: Current Medications Acetaminophen (Tylenol 325mg Tab) 650 mg PO Q6 PRN PRN Reason: Pain 1-10 Last Admin: 08/20/18 09:25 Dose: 650 mg Albuterol/Ipratropium (Duoneb 3 Mg/0.5 Mg (3 Ml) Ud) 3 ml INH RQ4 PRN PRN Reason: Shortness of Breath Last Admin: 08/21/18 01:06 Dose: 3 ml Albuterol/Ipratropium (Duoneb 3 Mg/0.5 Mg (3 Ml) Ud) 3 ml INH RTID [facility] Last Admin: 08/21/18 07:58 Dose: 3 ml Anastrozole (Arimidex 1 Mg Tab) 1 mg PO DAILY [facility] Last Admin: 08/21/18 08:50 Dose: 1 mg Benzocaine/Menthol (Cepacol Sore Throat) 1 malu PO Q2 PRN PRN Reason: Sore Throat Last Admin: 08/14/18 17:18 Dose: 1 malu Calcium Acetate (Phoslo) 667 mg PO DAILY [facility] Last Admin: 08/21/18 08:50 Dose: 667 mg Dextrose (Dextrose 50% Inj) 0 ml IV STAT PRN; Protocol PRN Reason: Hypoglycemia Protocol Last Admin: 08/18/18 15:47 Dose: 50 ml Dextrose (Glutose 15) 0 gm PO ONCE PRN; Protocol PRN Reason: Hypoglycemia Protocol Dimethicone (Proshield Plus Skin Protectant) 1 applic TOP Q8 [facility] Last Admin: 08/20/18 16:18 Dose: Not Given Ergocalciferol (Drisdol 50,000 Intl Units Cap) 1 cap PO QWK [facility] Last Admin: 08/15/18 08:15 Dose: 1 cap Escitalopram Oxalate (Lexapro) 20 mg PO DAILY [facility] Last Admin: 08/21/18 08:50 Dose: 20 mg Furosemide (Lasix) 40 mg IVP BID [facility] Glucagon (Glucagen Diagnostic Kit) 0 mg IM STAT PRN; Protocol PRN Reason: Hypoglycemia Protocol Guaifenesin/Dextromethorphan (Robitussin Dm) 10 ml PO Q6 PRN PRN Reason: Cough Last Admin: 08/20/18 21:16 Dose: 10 ml Levofloxacin/Dextrose (Levaquin 500mg) 500 mg in 100 mls @ 100 mls/hr IVPB DAILY [facility]; Protocol Last Admin: 08/21/18 08:47 Dose: 100 mls/hr Insulin Detemir (Levemir) 15 units SC HS [facility] Last Admin: 08/20/18 21:50 Dose: Not Given Insulin Human Lispro (Humalog) 10 units SC TIDAC [facility] Last Admin: 08/20/18 16:17 Dose: Not Given Lactulose (Enulose) 20 gm PO TID [facility] Last Admin: 08/21/18 08:54 Dose: 20 gm Lidocaine (Lidoderm) 1 ea TD DAILY [facility] Last Admin: 08/20/18 09:03 Dose: 1 ea Losartan Potassium (Cozaar) 50 mg PO DAILY [facility] Last Admin: 08/21/18 08:50 Dose: Not Given Metolazone (Zaroxolyn) 2.5 mg PO DAILY [facility] Last Admin: 08/21/18 08:49 Dose: 2.5 mg Rifaximin (Xifaxan) 550 mg PO BID [facility]; Protocol Last Admin: 08/21/18 08:49 Dose: 550 mg Sitagliptin Phosphate (Januvia) 100 mg PO DAILY [facility] Last Admin: 08/21/18 08:49 Dose: 100 mg Tiotropium [place] (Spiriva) 18 mcg INH DAILY [facility] Last Admin: 08/21/18 08:49 Dose: 18 mcg Physical Exam - Constitutional Appears: Non-toxic, Chronically Ill - Head Exam Head Exam: ATRAUMATIC, NORMOCEPHALIC - Eye Exam Eye Exam: EOMI, PERRL Pupil Exam: NORMAL ACCOMODATION - ENT Exam ENT Exam: Mucous Membranes Dry, Normal External Ear Exam - Neck Exam Neck exam: Negative for: Lymphadenopathy - Respiratory Exam Respiratory Exam: Decreased Breath Sounds, Clear to Auscultation Bilateral, Rhonchi - Cardiovascular Exam Cardiovascular Exam: REGULAR RHYTHM, +S1, +S2 - GI/Abdominal Exam GI & Abdominal Exam: Diminished Bowel Sounds, Soft. absent: Tenderness Additional comments: ecchymoses over lower abdomen - Rectal Exam Rectal Exam: Deferred - Exam Exam: NORMAL INSPECTION - Extremities Exam Extremities exam: Positive for: pedal edema, pedal pulses present. Negative for: calf tenderness - Back Exam Back exam: absent: CVA tenderness (L) (O), CVA tenderness (R) - Neurological Exam Neurological exam: Alert, Altered, CN II-XII Intact - Psychiatric Exam Psychiatric exam: Depressed - Skin Skin Exam: Dry Results - Vital Signs Recent Vital Signs: Last Vital Signs Temp 97.5 F L 08/21/18 07:36 Pulse 85 08/21/18 07:36 Resp 20 08/21/18 07:36 BP 96/57 L 08/21/18 07:36 Pulse Ox 95 08/21/18 07:36 - Labs Result Diagrams: 08/21/18 04:25 08/21/18 14:05 Labs: Laboratory Results - last 24 hr 08/19/18 08/20/18 08/20/18 16:05 05:05 11:04 WBC RBC Hgb Hct MCV MCH MCHC RDW Plt Count PT INR APTT POC Glucose (mg/dL) 243 H 150 H 120 H Blood Type Antibody Screen BBK History Checked 08/20/18 08/20/18 08/20/18 15:30 17:55 17:55 WBC RBC Hgb Hct MCV MCH MCHC RDW Plt Count PT 16.8 H INR 1.5 APTT 25.4 L POC Glucose (mg/dL) 97 Blood Type A POSITIVE Antibody Screen Negative BBK History Checked Patient has bt 08/20/18 08/20/18 08/21/18 18:46 21:05 04:25 WBC 23.0 H 25.3 H RBC 3.88 3.61 L Hgb 12.5 11.8 L Hct 37.4 35.5 MCV 96.5 D 98.2 MCH 32.3 H 32.7 H MCHC 33.4 33.3 RDW 13.9 14.2 Plt Count 92 L 74 L PT INR APTT POC Glucose (mg/dL) 136 H Blood Type Antibody Screen BBK History Checked 08/21/18 05:02 WBC RBC Hgb Hct MCV MCH MCHC RDW Plt Count PT INR APTT POC Glucose (mg/dL) 169 H Blood Type Antibody Screen BBK History Checked Assessment & Plan (1) CHF (congestive heart failure) Status: Acute Priority: Medium (2) HCAP (healthcare-associated pneumonia) Status: Acute (3) Pleural effusion Status: Acute (4) Acute diastolic heart failure due to valvular disease Status: Acute (5) Acute dyspnea Status: Acute (6) Acute renal failure Status: Acute - Assessment and Plan (Free Text) Assessment: additiional cultures sent 'IV Merrem added
[2018-08-21] MEDS: Meropenem 500 MG in Sodium Chloride 0.9% 100 ML IVPB SCH ×2 (11:15→18:03)
--- NOTE | 2018-08-21 11:45 | CP.PCM.PCO ---
Assessment & Plan - Assessment and Plan (Free Text) Assessment: Patient seen and examined this morning in rounds. Alert awake sitting in the chair. Labs reviewed, ct scan A/P reviewed with Dr Wayne. Plan to get ID on board for leukocytosis/Pneumonia Monitor renal function, get Dr Jones on board Plan for possible paracentesis today, will speak with Dr Ramirez. Vss. BP meds on hold since patient remains hypotensive. Will cont to monitor patient.
[2018-08-21] MEDS ORDERED: Lidocaine 1% Inj (20ml) ONE (12:16)
--- NOTE | 2018-08-21 12:38 | PCM.SURG1 ---
Surgeon's Initial Post Op Note - Surgeon's Notes Surgeon: Erik Ramirez MD Adolescent Coordinator: NONE Type of Anesthesia: Local Pre-Operative Diagnosis: Right pleural effusion Operative Findings: US showed large right effusion Post-Operative Diagnosis: Right pleural effusion Operation Performed: US guided right thoracentesis Specimen/Specimens Removed: 1200 cc of gonzales colored fluid Estimated Blood Loss: EBL {In ML}: 0 Blood Products Given: N/A Drains Used: No Drains Post-Op Condition: Fair Date of Surgery/Procedure: 08/21/18 Time of Surgery/Procedure: 12:35
[2018-08-21 13:38] LABS: BODY FLUID TYPE PLEURAL/THORACENTESI
[2018-08-21 14:46] LABS: BF GROSS APPEARANCE CLOUDY (CLEAR)
[2018-08-21 15:00] LABS: CALCIUM 10.9 mg/dL (8.4-10.2)
--- NOTE | 2018-08-21 15:03 | RAD ---
Date of service: 08/21/2018 PROCEDURE: CHEST RADIOGRAPH, 1 VIEW HISTORY: Status post right thoracentesis. COMPARISON: 08/20/2018 FINDINGS: LUNGS: Clear. PLEURA: No pneumothorax or pleural fluid seen. CARDIOVASCULAR: No aortic atherosclerotic calcification present. Normal heart size. Permanent pacemaker. No congestive change. OSSEOUS STRUCTURES: No significant abnormalities. VISUALIZED UPPER ABDOMEN: Normal. OTHER FINDINGS: None. IMPRESSION: No active disease.
[2018-08-21 15:15] LABS: BODY FLUID MONO/MACROPHAGE 43 % (0-0); BODY FLUID TOTAL COUNT 100 (0-0)
--- NOTE | 2018-08-21 23:43 | CP.PCM.CON ---
History of Present Illness - History of Present Illness History of Present Illness: Attending: Rojelio Wayne MD Reason for consult: Evaluation for Intensive Care management Chief Complaint: Hypotension The Patient was seen and examined in the telemetry unit with the family present HPI: The hx was obtained from the family as the patient was lethargic. This is an 82 years old female with hx of CHF, A Fib with Permanent Pacemaker, and pleural effusion. The Systolic blood pressure was recorded in the 70s. The highest being 93/54mmHg in this patient who is lethargic. She was admitted on 08/04/18 with an acute on chronic CHF associated with bilateral Pleural effusion and hypocarbic respiratory failure. Right Thoracentesis was done on 08/15/18 with removal of 1.45L of fluid Repeat right Thoracentesis was again done on 08/21/18 with removal of 1200mls of fluid. She does have a wet cough but cannot expectorate. The cough is associated with pain to the lower abdomen where there is an abdominal wall hematoma. PMH: Arthritis; Anemia; asthma and COPD; A Fib; CHF diastolic dysfunction; DM II; Anxiety and Depression; HLD; Hypothyroidism; Cataract; Cirrhosis PSH: Permanent pacemaker; Cystoscopy with right ureteral Stent; vaginal Reconstruction; Cardiac Cath SH: Never Smoked; No ETOH; No illegal drug use FH: No known family hx Allergies: Metoclopramide Medication: reviewed Review of Systems - Review of Systems Review of Systems: Review of systems limited as patient is lethargic - Constitutional Constitutional: Anorexia, Lethargy. absent: Fever, Headache - EENT Nose/Mouth/Throat: absent: Epistaxis, Nasal Congestion - Cardiovascular Cardiovascular: Edema. absent: Chest Pain - Respiratory Respiratory: Cough - Gastrointestinal Additional comments: Pain to lower abdomen on coughing. - Genitourinary Genitourinary: absent: Dysuria, Flank Pain - Musculoskeletal Musculoskeletal: Arthralgias - Integumentary Integumentary: Swelling. absent: Pruritus, Rash - Neurological Neurological: Weakness. absent: Focal Weakness - Psychiatric Psychiatric: Anxiety, Depression - Endocrine Endocrine: absent: Polydipsia, Polyphagia - Hematologic/Lymphatic Hematologic: Easy Bruising Past Patient History - Tetanus Immunizations Tetanus Immunization: Unknown - Past Medical History & Family History Past Medical History?: Yes - Past Social History Smoking Status: Never Smoked Chewing Tobacco Use: No Cigar Use: No Alcohol: None Drugs: Denies Home Situation {Lives}: With Family - CARDIAC Hx Atrial Fibrillation: Yes Hx Cardia Arrhythmia: Yes (A-FIB) Hx Congestive Heart Failure: Yes Hx Hypercholesterolemia: Yes Hx Hypertension: Yes Hx Pacemaker: Yes - PULMONARY Hx Asthma: Yes Hx Chronic Obstructive Pulmonary Disease (COPD): Yes Hx Pneumonia: Yes - NEUROLOGICAL Hx Neurological Disorder: No - HEENT Hx HEENT Problems: No - RENAL Hx Chronic Kidney Disease: Yes - ENDOCRINE/METABOLIC Hx Hypothyroidism: Yes - HEMATOLOGICAL/ONCOLOGICAL Hx Anemia: Yes Hx Human Immunodeficiency Virus (HIV): No - INTEGUMENTARY Hx Dermatological Problems: No - MUSCULOSKELETAL/RHEUMATOLOGICAL Hx Arthritis: Yes Hx Falls: No - GASTROINTESTINAL Hx Gastrointestinal Disorders: Yes Hx Liver Failure: Yes - GENITOURINARY/GYNECOLOGICAL Hx Genitourinary Disorders: No - PSYCHIATRIC Hx Depression: Yes Hx Substance Use: No - SURGICAL HISTORY Hx Surgeries: Yes Hx Cataract Extraction: Yes (BILAT.) Hx Cardiac Catheterization: Yes Other/Comment: HX: CYSTO WITH STENT PLACED. HX: RECONSTRUCTION OF VAGINA. HX: CYSTOSCOPY RIGHT URETERAL STENT EXCHANGE(01/29/18) - ANESTHESIA Hx Anesthesia: Yes Hx Anesthesia Reactions: No Hx Malignant Hyperthermia: No Meds Allergies/Adverse Reactions: Allergies Allergy/AdvReac Type Severity Reaction Status Date / Time metoclopramide [From Reglan] Allergy ANAPHYLAXIS Verified 08/03/18 23:19 - Medications Medications: Current Medications Acetaminophen (Tylenol 325mg Tab) 650 mg PO Q6 PRN PRN Reason: Pain 1-10 Last Admin: 08/20/18 09:25 Dose: 650 mg Albuterol/Ipratropium (Duoneb 3 Mg/0.5 Mg (3 Ml) Ud) 3 ml INH RQ4 PRN PRN Reason: Shortness of Breath Last Admin: 08/21/18 01:06 Dose: 3 ml Albuterol/Ipratropium (Duoneb 3 Mg/0.5 Mg (3 Ml) Ud) 3 ml INH RTID [facility] Last Admin: 08/21/18 19:48 Dose: 3 ml Anastrozole (Arimidex 1 Mg Tab) 1 mg PO DAILY [facility] Last Admin: 08/21/18 08:50 Dose: 1 mg Benzocaine/Menthol (Cepacol Sore Throat) 1 malu PO Q2 PRN PRN Reason: Sore Throat Last Admin: 08/14/18 17:18 Dose: 1 malu Calcium Acetate (Phoslo) 667 mg PO DAILY [facility] Last Admin: 08/21/18 08:50 Dose: 667 mg Dextrose (Dextrose 50% Inj) 0 ml IV STAT PRN; Protocol PRN Reason: Hypoglycemia Protocol Last Admin: 08/18/18 15:47 Dose: 50 ml Dextrose (Glutose 15) 0 gm PO ONCE PRN; Protocol PRN Reason: Hypoglycemia Protocol Dimethicone (Proshield Plus Skin Protectant) 1 applic TOP Q8 [facility] Last Admin: 08/21/18 18:39 Dose: Not Given Ergocalciferol (Drisdol 50,000 Intl Units Cap) 1 cap PO QWK [facility] Last Admin: 08/15/18 08:15 Dose: 1 cap Escitalopram Oxalate (Lexapro) 20 mg PO DAILY [facility] Last Admin: 08/21/18 08:50 Dose: 20 mg Furosemide (Lasix) 40 mg IVP BID [facility] Last Admin: 08/21/18 18:01 Dose: Not Given Glucagon (Glucagen Diagnostic Kit) 0 mg IM STAT PRN; Protocol PRN Reason: Hypoglycemia Protocol Guaifenesin/Dextromethorphan (Robitussin Dm) 10 ml PO Q6 PRN PRN Reason: Cough Last Admin: 08/20/18 21:16 Dose: 10 ml Levofloxacin/Dextrose (Levaquin 500mg) 500 mg in 100 mls @ 100 mls/hr IVPB DAILY [facility]; Protocol Last Admin: 08/21/18 08:47 Dose: 100 mls/hr Meropenem 500 mg/ Sodium (Chloride) 100 mls @ 100 mls/hr IVPB Q8 [facility]; Protocol Last Admin: 08/21/18 18:03 Dose: Not Given Insulin Detemir (Levemir) 15 units SC HS [facility] Last Admin: 08/20/18 21:50 Dose: Not Given Insulin Human Lispro (Humalog) 10 units SC TIDAC [facility] Last Admin: 08/21/18 18:39 Dose: 10 units Lactulose (Enulose) 20 gm PO TID [facility] Last Admin: 08/21/18 17:59 Dose: Not Given Lidocaine (Lidoderm) 1 ea TD DAILY [facility] Last Admin: 08/21/18 09:00 Dose: Not Given Losartan Potassium (Cozaar) 50 mg PO DAILY [facility] Last Admin: 08/21/18 08:50 Dose: Not Given Metolazone (Zaroxolyn) 2.5 mg PO DAILY [facility] Last Admin: 08/21/18 08:49 Dose: 2.5 mg Rifaximin (Xifaxan) 550 mg PO BID [facility]; Protocol Last Admin: 08/21/18 18:41 Dose: Not Given Sitagliptin Phosphate (Januvia) 100 mg PO DAILY [facility] Last Admin: 08/21/18 08:49 Dose: 100 mg Tiotropium [place] (Spiriva) 18 mcg INH DAILY [facility] Last Admin: 08/21/18 08:49 Dose: 18 mcg Physical Exam - Constitutional Appears: No Acute Distress Additional comments: lethargic - Head Exam Head Exam: ATRAUMATIC, NORMAL INSPECTION, NORMOCEPHALIC - Eye Exam Eye Exam: EOMI Pupil Exam: NORMAL ACCOMODATION - ENT Exam ENT Exam: Mucous Membranes Dry, Normal External Ear Exam - Neck Exam Neck exam: Positive for: Full Rom, Normal Inspection. Negative for: Lymphadenopathy, Tenderness - Respiratory Exam Respiratory Exam: Clear to Auscultation Bilateral. absent: Rales, Rhonchi, Wheezes - Cardiovascular Exam Cardiovascular Exam: REGULAR RHYTHM, RRR, +S1, +S2 - GI/Abdominal Exam GI & Abdominal Exam: Soft. absent: Hypoactive Bowel Sounds, Normal Bowel Sounds - Rectal Exam Rectal Exam: Deferred - Extremities Exam Extremities exam: Negative for: calf tenderness - Back Exam Back exam: NORMAL INSPECTION. absent: CVA tenderness (L), CVA tenderness (R) - Neurological Exam Neurological exam: CN II-XII Intact, Oriented x3, Reflexes Normal - Psychiatric Exam Psychiatric exam: Flat Affect - Skin Skin Exam: Dry, Warm Additional comments: Ecchymosis across the lower abdomen, immediately below the belt line Results - Vital Signs Recent Vital Signs: Last Vital Signs Temp 97.8 F 08/21/18 20:23 Pulse 83 08/21/18 21:00 Resp 22 08/21/18 20:23 BP 93/54 L 08/21/18 20:23 Pulse Ox 98 08/21/18 20:23 - Labs Result Diagrams: 08/21/18 04:25 08/21/18 14:05 Labs: Laboratory Results - last 24 hr 08/21/18 08/21/18 08/21/18 04:25 05:02 10:54 WBC 25.3 H RBC 3.61 L Hgb 11.8 L Hct 35.5 MCV 98.2 MCH 32.7 H MCHC 33.3 RDW 14.2 Plt Count 74 L Sodium Potassium Chloride Carbon Dioxide Anion Gap BUN Creatinine Est GFR ( Amer) Est GFR (Non-Af Amer) POC Glucose (mg/dL) 169 H 236 H Random Glucose Calcium Procalcitonin Fluid Source Fluid Appearance Fluid WBC Fluid RBC Fluid Tot Cell Count Fluid Neutrophils Fluid Lymphocytes Fld Monocyte/Macrophag Fluid Total Protein Fluid Comment 08/21/18 08/21/18 08/21/18 13:30 13:30 14:05 WBC RBC Hgb Hct MCV MCH MCHC RDW Plt Count Sodium 128 L Potassium 4.4 Chloride 82 L Carbon Dioxide 32 H Anion Gap 18 BUN 111 H* D Creatinine 3.5 H Est GFR ( Amer) 15 Est GFR (Non-Af Amer) 13 POC Glucose (mg/dL) Random Glucose 243 H Calcium 10.9 H Procalcitonin Fluid Source Pleural/thoracentesi Fluid Appearance Cloudy Fluid WBC 105.0 Fluid RBC 7095.0 H Fluid Tot Cell Count 100 H Fluid Neutrophils 11.0 H Fluid Lymphocytes 46.0 H Fld Monocyte/Macrophag 43 H Fluid Total Protein < 2.0 Fluid Comment Slightly bloody 08/21/18 08/21/18 14:05 15:54 WBC RBC Hgb Hct MCV MCH MCHC RDW Plt Count Sodium Potassium Chloride Carbon Dioxide Anion Gap BUN Creatinine Est GFR ( Amer) Est GFR (Non-Af Amer) POC Glucose (mg/dL) 267 H Random Glucose Calcium Procalcitonin 1.06 H Fluid Source Fluid Appearance Fluid WBC Fluid RBC Fluid Tot Cell Count Fluid Neutrophils Fluid Lymphocytes Fld Monocyte/Macrophag Fluid Total Protein Fluid Comment - Imaging and Cardiology CT scan - abdomen Status: Image reviewed by me, Report reviewed by me Additional comment: FINDINGS: LOWER THORAX: Prior minimal left pleural effusion is likely minimally recurrent. A large right pleural effusion is now identified. Compression atelectasis affects the right lower lobe limited atelectasis felt to present the dependent left lower lobe. Cardiomegaly is prominent with pacemaker leads in the right heart. Extensive coronary artery calcifications are identified as well as at the visualized abdominal aorta. LIVER: Shrunken cirrhotic liver is appreciate with a nodular peripheral surface identified. Lack images contrast limits solid abdominal viscera however no gross mass is demonstrated nevertheless. Perihepatic ascites appears mild. GALLBLADDER AND BILE DUCTS: Cholelithiasis is increased at the dependent gallbladder which is otherwise unremarkable. PANCREAS: An atrophic, nonfocal pancreas is identified. SPLEEN: Unremarkable. ADRENALS: Unremarkable. No mass. KIDNEYS AND URETERS: Vascular calcifications are favored over intrarenal calculi bilaterally. No obstructive uropathy or gross mass evident. VASCULATURE: Nonaneurysmal abdominal aortic calcific atherosclerotic changes are identified. BOWEL: Bowel is not appear obstructed. No local edema is seen adjacent to the bowel loops overall. Limited retained fecal material scattered throughout various large-bowel segments. Limited left colonic diverticular changes are appreciated. No definitive acute mesenteric reaction related. The stomach is distended with retained food/fluid fluid. APPENDIX: Appendix not identified once again. PERITONEUM: Vbxo-nx-[id number] ascites concentrated at the upper abdomen and lower abdomen/pelvis. LYMPH NODES: Unremarkable. No enlarged lymph nodes. BLADDER: Unremarkable. REPRODUCTIVE: Unremarkable. BONES: No acute fracture. OTHER FINDINGS: Hyperdense changes are suspicious for hemorrhage within the inferior bilateral rectus musculature, right greater than left to [id number] severity. IMPRESSION: 1. Hyperdensity related to the bilateral rectus abdominus musculature at the inferior abdomen/pelvis is felt to represent [id number] intramuscular hemorrhage. Clinically correlate as to etiology. 2. Elrc-du-tnpuegtv ascites (not hemoperitoneum). 3. Cirrhotic liver identified in the interval. 4. Cholelithiasis. 5. Large right pleural effusion. Trace left pleural effusion. Cardiomegaly. Chest x-ray Status: Image reviewed by me, Report reviewed by me Additional comment: COMPARISON: 08/20/2018 FINDINGS: LUNGS: Clear. PLEURA: No pneumothorax or pleural fluid seen. CARDIOVASCULAR: No aortic atherosclerotic calcification present. Normal heart size. Permanent pacemaker. No congestive change. OSSEOUS STRUCTURES: No significant abnormalities. VISUALIZED UPPER ABDOMEN: Normal. OTHER FINDINGS: None. IMPRESSION: No active disease. Assessment & Plan - Assessment and Plan (Free Text) Plan: 82 years old female with hx of CHF, A Fib with Permanent Pacemaker, and pleural effusion. The Systolic blood pressure was recorded in the 70s. The highest being 93/54mmHg in this patient who is lethargic. She was admitted on 08/04/18 with an acute on chronic CHF associated with bilateral Pleural effusion and hypocarbic respiratory failure. Right Thoracentesis was done on 08/15/18 with removal of 1.45L of fluid Repeat right Thoracentesis was again done on 08/21/18 with removal of 1200mls of fluid. She does have a wet cough but cannot expectorate. The cough is associated with pain to the lower abdomen where there is an abdominal wall hematoma. #. Hypotension, probably secondary to dehydration and poor intake with use of antihypertensives. - Transfer to ICU for continuous monitoring of Blood Pressure - Start levophed if needed - Hold fluids #. Acute on chronic CHF with Diastolic dysfunction due to valvular disease - Cardiology Dr Marlow on consult - Judicious use of Diuretics, Lasix and Metolazone - Losartan #. Pneumonia - Dr Hughes on consult - Levoquin - Meropenem #. Acute kidney Injury - Dr Stovall on Nephrology consult - Follow Renal labs #. Abdominal Wall Hematoma - Surgery Dr Black #. Diabetes Mellitus II - Jenuvia - Lispro sliding scale according to sliding scale #. Code Status: Full The Patient's Son Stalin Sheth requested that his mother be made a Full Code He wants to be called if she is going to be intubated. Joseph Martinez MD - Date & Time Date: 08/21/18 Time: 23:43
[2018-08-22] MEDS: Insulin Detemir 100 Units/ml Inj SC SCH (00:13)
[2018-08-22] MEDS ORDERED: Dextrose 50% SYRINGE Inj (50 ml) IV PRN (00:16)
[2018-08-22] MEDS ORDERED: Glucagon Recombinant 1 mg Inj IM PRN (00:16)
[2018-08-22] MEDS ORDERED: Albuterol-Ipratrop 3 mg / 0.5 (3 ml) UD INH PRN (00:16)
[2018-08-22] MEDS ORDERED: Benzocaine/Menthol (Cepacol) Lozenge PO PRN (00:16)
[2018-08-22] MEDS ORDERED: Ergocalciferol 50,000 Intl Units Cap PO SCH (00:16)
[2018-08-22] MEDS ORDERED: Chlorhexidine Gluconate 1 APPL/PKT TP ONE (00:57)
[2018-08-22] MEDS ORDERED: Meropenem 500 MG in Sodium Chloride 0.9% 100 ML IVPB SCH (01:00)
[2018-08-22] MEDS: Proshield Plus GEL TOP SCH ×3 (01:00→17:33)
[2018-08-22] MEDS: levoFLOXacin 500 mg in D5W 500 MG/100 ML BAG IVPB SCH (02:55)
[2018-08-22] MEDS ORDERED: Sodium Chloride 0.9% 500 ML IV SCH ×2 (04:00→09:00)
[2018-08-22 06:14] LABS: BASO # 0.1 K/uL (0.0-0.2); BASO % 0.3 % (0.0-2.0); EOS # 0.1 K/uL (0.0-0.7); EOS % 0.6 % (0.0-4.0); HEMOGLOBIN 11.5 g/dL (12.0-16.0); LYMPH # 0.8 K/uL (1.0-4.3); LYMPH % 3.8 % (20.0-40.0); MEAN CELL VOLUME 97.5 fl (81.0-99.0); MEAN CORPUSCULAR HEMOGLOBIN 32.8 pg (27.0-31.0); MEAN CORPUSCULAR HGB CONC 33.7 g/dL (33.0-37.0); MEAN PLATELET VOLUME 10.3 fl (7.2-11.7); MONO # 1.4 K/uL (0.0-0.8); NEUT # 18.1 K/uL (1.8-7.0); NEUT % 88.3 % (50.0-75.0); NRBC % 0.1 % (0.0-0.0); RBC 3.5 Mil/uL (3.80-5.20); WHITE BLOOD COUNT 20.5 K/uL (4.8-10.8)
[2018-08-22 06:15] LABS: ALB/GLOB RATIO 0.8 (1.0-2.1); ALBUMIN 2.3 g/dL (3.5-5.0); CALCIUM 10.6 mg/dL (8.4-10.2)
[2018-08-22] MEDS: Albuterol-Ipratrop 3 mg / 0.5 (3 ml) UD INH SCH ×3 (08:12→19:09)
--- NOTE | 2018-08-22 08:43 | CP.PCM.PN ---
Subjective - Date & Time of Evaluation Date of Evaluation: 08/22/18 Time of Evaluation: 08:43 - Subjective Subjective: pt is seen and examined, follow up consult is dictated #[id number] agree told lasix, metalozone c/w ivf ns at 84 ml/hr strict i/os place gomez cath d/w icu attending in rounds Objective - Vital Signs/Intake and Output Vital Signs (last 24 hours): Temp Pulse Resp BP Pulse Ox 97.7 F 82 12 100/39 L 100 08/22/18 08:00 08/22/18 08:00 08/22/18 08:00 08/22/18 08:00 08/22/18 08:00 Intake and Output: 08/22/18 08/22/18 06:59 18:59 Intake Total 264 Balance 264 - Medications Medications: Current Medications Acetaminophen (Tylenol 325mg Tab) 650 mg PO Q6 PRN PRN Reason: Pain 1-10 Albuterol/Ipratropium (Duoneb 3 Mg/0.5 Mg (3 Ml) Ud) 3 ml INH RQ4 PRN PRN Reason: Shortness of Breath Last Admin: 08/22/18 01:00 Dose: 3 ml Albuterol/Ipratropium (Duoneb 3 Mg/0.5 Mg (3 Ml) Ud) 3 ml INH RTID [facility] Last Admin: 08/22/18 08:12 Dose: 3 ml Anastrozole (Arimidex 1 Mg Tab) 1 mg PO DAILY [facility] Benzocaine/Menthol (Cepacol Sore Throat) 1 malu PO Q2 PRN PRN Reason: Sore Throat Calcium Acetate (Phoslo) 667 mg PO DAILY [facility] Dextrose (Dextrose 50% Inj) 0 ml IV STAT PRN; Protocol PRN Reason: Hypoglycemia Protocol Dextrose (Glutose 15) 0 gm PO ONCE PRN; Protocol PRN Reason: Hypoglycemia Protocol Dimethicone (Proshield Plus Skin Protectant) 1 applic TOP Q8 [facility] Last Admin: 08/22/18 01:00 Dose: 1 applic Ergocalciferol (Drisdol 50,000 Intl Units Cap) 1 cap PO QWK [facility] Escitalopram Oxalate (Lexapro) 20 mg PO DAILY [facility] Furosemide (Lasix) 40 mg IVP BID [facility] Glucagon (Glucagen Diagnostic Kit) 0 mg IM STAT PRN; Protocol PRN Reason: Hypoglycemia Protocol Guaifenesin/Dextromethorphan (Robitussin Dm) 10 ml PO Q6 PRN PRN Reason: Cough Meropenem 500 mg/ Sodium (Chloride) 100 mls @ 100 mls/hr IVPB DAILY [facility]; Protocol Levofloxacin/Dextrose (Levaquin 500mg) 500 mg in 100 mls @ 100 mls/hr IVPB Q48H [facility]; Protocol Last Admin: 08/22/18 02:55 Dose: 100 mls/hr Sodium Chloride (Sodium Chloride 0.9%) 500 mls @ 42 mls/hr IV .[id number] [facility] Last Admin: 08/22/18 04:00 Dose: 42 mls/hr Insulin Detemir (Levemir) 15 units SC HS [facility] Insulin Human Lispro (Humalog) 10 units SC TIDAC [facility] Lactulose (Enulose) 20 gm PO TID [facility] Lidocaine (Lidoderm) 1 ea TD DAILY [facility] Losartan Potassium (Cozaar) 50 mg PO DAILY [facility] Metolazone (Zaroxolyn) 2.5 mg PO DAILY [facility] Rifaximin (Xifaxan) 550 mg PO BID [facility]; Protocol Sitagliptin Phosphate (Januvia) 25 mg PO DAILY [facility] Tiotropium [place] (Spiriva) 18 mcg INH DAILY [facility] - Labs Labs: 08/22/18 05:40 08/22/18 05:40 PT 16.8 Seconds (9.8-13.1) H 08/20/18 17:55 INR 1.5 08/20/18 17:55 APTT 25.4 Seconds (25.6-37.1) L 08/20/18 17:55
[2018-08-22] MEDS ORDERED: Sodium Chloride 0.9% 500 ML IV ONE ×2 (08:53→17:08)
[2018-08-22] MEDS ORDERED: levoFLOXacin 500 mg in D5W 500 MG/100 ML BAG IVPB SCH (09:00)
[2018-08-22] MEDS: Insulin Lispro (humaLOG) 100 Units/ml Inj SC SCH ×2 (09:01→12:31)
--- NOTE | 2018-08-22 09:06 | CON ---
DATE: 08/21/2018 The patient is located in room 402, bed 2. Requested [address] Dr. Chintan Wayne and Dr. Krishna. HISTORY OF PRESENT ILLNESS: Mrs. Sheth is an 82-year-old very pleasant elderly female with a past medical history significant for hypertension, diabetes, asthma, pulmonary hypertension status post treatment for the pulmonary hypertension and subsequently the patient developed cirrhosis of the liver, so the patient's family followed previously by Dr. Damian and now following with Dr. tabor and admitted with chief complaints of cough associated with whitish yellow sputum and also feels like asthma and decreased appetite for two days prior to the admission. Last admission to the hospital was about two months ago. The patient denied any chest pain, palpitation, denies any nausea, vomiting, diarrhea, on admission. Her hospital course was complicated by pleural effusion and requiring thoracentesis about 14 to [address] Hughes and also requiring a BiPAP. The patient is being diuresed. The patient is slightly lethargic, arousable and following commands and feeling weak and tired. PAST MEDICAL HISTORY: Significant for hypertension, diabetes, AFib, status post pacemaker placement, hyperlipidemia, depression, hypothyroidism, and nephrolithiasis. ALLERGIES: ALLERGIC TO REGLAN. SOCIAL HISTORY: Denies any smoking, alcohol, drugs. PERSONAL HISTORY: The patient is and she lives with her . She has three children. FAMILY HISTORY: Not significant. She has a very supportive daughter. MEDICATIONS: As follows: Anastrozole, losartan 50 mg p.o. daily, DuoNeb inhaler, lactulose, Januvia 100 mg p.o. daily, Lasix 40 mg IV b.i.d., Levaquin 500 mg daily, Levemir 15 units subcu at bedtime, Lexapro 20 mg p.o. daily, meropenem 500 mg every 8 hours, PhosLo mg p.o. daily, Spiriva, Tylenol, Xifaxan, and metolazone 2.5 mg p.o. daily. REVIEW OF SYSTEMS: Significant for weakness, lethargy, and shortness of breath. All other review of systems are reviewed and negative. PHYSICAL EXAMINATION: GENERAL: Mrs. Sheth is an 82-year-old elderly female moderately build, moderately nourished, not in distress. VITAL SIGNS: Blood pressure this morning 119/66, pulse 97, respirations about 20, temperature 97.5, saturation 95%, height 4 feet 11 inches and weight is 126 pounds. HEENT: Pupils normal and reactive to light and accommodation. Conjunctiva pink. Sclera anicteric. Tongue is slightly dry. Trachea is midline. LUNGS: Symmetric on both sides. Bilateral breath sounds present. Occasional basal crackles present. CARDIOVASCULAR SYSTEM: [place] of the fifth intercostal space, midclavicular line. S1, S2. Audible. No murmur. No gallop. The patient has a pacemaker in the right subclavian area. ABDOMEN: Slightly protuberant. Soft and ecchymotic in the pelvic area. Soft and mild. Lower abdominal tenderness. No guarding. No rigidity. No hepatosplenomegaly. CENTRAL NERVOUS SYSTEM: The patient is drowsy, arousable, following simple commands. EXTREMITIES: No cyanosis. No clubbing. The patient has a trace edema in both lower extremities. LABORATORY DATA: Include as follows: As of 08/21/2018, WBC 25.3, hemoglobin 11.8, hematocrit 35.5, platelets 74. Sodium 128, potassium 4.4, chloride 82, CO2 32, BUN 111, creatinine 3.5, glucose 243. Calcium is 10.9 and procalcitonin is 1; and pleural fluid, WBC 105, RBC 7095, neutrophils borderline, lymph is 46, monocytes macrophage is 43, total protein is less than 2. Fluid is slightly bloody and cloudy. As of 08/18/2018, BUN and creatinine 77/1.2. Total protein is 6.2, albumin is 2.8. As of 08/17/2018, BUN and creatinine 82/1.4. On 08/16/2018, BUN and creatinine 81/1.3. As of 08/06/2018, sodium 136, potassium 5.2, chloride 93, CO2 33, BUN 44, creatinine 1, glucose 110, calcium 9.9. CT of the abdomen and pelvis as of 08/19/2018, the patient has hyperdensity related to the bilateral rectus abdominal musculature at the inferior abdomen and pelvis, is felt to represent adwu-eu-syccvinn intramuscular hemorrhage. Clinical correlation is to etiology. Ubrg-zg-yrpacedw ascites and cirrhotic liver identified in the interval. Cholelithiasis and large right pleural effusion, trace left pleural effusion, cardiomegaly. In summary, Mrs. Sheth is an 82-year-old elderly female with history of hypertension, diabetes, pulmonary hypertension, cirrhosis of the liver, was admitted with cough with yellow sputum, shortness of breath, being treated for congestive heart failure, and pulmonary hypertension status post thoracentesis x2 with worsening renal function. 1. Acute renal failure and chronic kidney disease, most likely secondary to intravascular depletion secondary to vigorous diuresis. 2. Pulmonary hypertension. 3. Cirrhosis of the liver. 4. Hypertension. PLAN: Continue to monitor with Pulmonary, continue gentle diuresis and if renal function continues to deteriorate, may need to hold diuretics at this time and may need temporary hemodialysis. Continue IV antibiotics as per the ID recommendations. We will follow with you. Thank you for allowing me to participate in your patient's care. Check urine lytes, osmolality, and urine creatinine to calculate fractional excretion of sodium and discuss with Dr. Hughes and also with nurse practitioner in rounds. Lalita Stovall MD TETO
[2018-08-22] MEDS: Tiotropium 18 mcg Cap For Inhalation INH SCH (09:07)
[2018-08-22] MEDS: Lidocaine 5% Patch TD SCH (09:08)
--- NOTE | 2018-08-22 09:31 | CP.PCM.PN ---
Subjective - Date & Time of Evaluation Date of Evaluation: 08/22/18 Time of Evaluation: 09:31 - Subjective Subjective: patient seen and examined at bedside interim events noted appreciate consultants input more awake/alert today denies complaints Objective - Vital Signs/Intake and Output Vital Signs (last 24 hours): Temp Pulse Resp BP Pulse Ox 97.7 F 82 12 100/39 L 100 08/22/18 08:00 08/22/18 08:00 08/22/18 08:00 08/22/18 08:00 08/22/18 08:00 Intake and Output: 08/22/18 08/22/18 06:59 18:59 Intake Total 264 Balance 264 - Medications Medications: Current Medications Acetaminophen (Tylenol 325mg Tab) 650 mg PO Q6 PRN PRN Reason: Pain 1-10 Albuterol/Ipratropium (Duoneb 3 Mg/0.5 Mg (3 Ml) Ud) 3 ml INH RQ4 PRN PRN Reason: Shortness of Breath Last Admin: 08/22/18 01:00 Dose: 3 ml Albuterol/Ipratropium (Duoneb 3 Mg/0.5 Mg (3 Ml) Ud) 3 ml INH RTID [facility] Last Admin: 08/22/18 08:12 Dose: 3 ml Anastrozole (Arimidex 1 Mg Tab) 1 mg PO DAILY [facility] Last Admin: 08/22/18 09:00 Dose: Not Given Benzocaine/Menthol (Cepacol Sore Throat) 1 malu PO Q2 PRN PRN Reason: Sore Throat Calcium Acetate (Phoslo) 667 mg PO DAILY [facility] Dextrose (Dextrose 50% Inj) 0 ml IV STAT PRN; Protocol PRN Reason: Hypoglycemia Protocol Dextrose (Glutose 15) 0 gm PO ONCE PRN; Protocol PRN Reason: Hypoglycemia Protocol Dimethicone (Proshield Plus Skin Protectant) 1 applic TOP Q8 [facility] Last Admin: 08/22/18 01:00 Dose: 1 applic Ergocalciferol (Drisdol 50,000 Intl Units Cap) 1 cap PO QWK [facility] Escitalopram Oxalate (Lexapro) 20 mg PO DAILY [facility] Furosemide (Lasix) 40 mg IVP BID [facility] Glucagon (Glucagen Diagnostic Kit) 0 mg IM STAT PRN; Protocol PRN Reason: Hypoglycemia Protocol Guaifenesin/Dextromethorphan (Robitussin Dm) 10 ml PO Q6 PRN PRN Reason: Cough Meropenem 500 mg/ Sodium (Chloride) 100 mls @ 100 mls/hr IVPB DAILY [facility]; Protocol Levofloxacin/Dextrose (Levaquin 500mg) 500 mg in 100 mls @ 100 mls/hr IVPB Q48H [facility]; Protocol Last Admin: 08/22/18 02:55 Dose: 100 mls/hr Sodium Chloride (Sodium Chloride 0.9%) 500 mls @ 500 mls/hr IV .Q1H ONE Stop: 08/22/18 09:52 Last Admin: 08/22/18 09:06 Dose: 500 mls/hr Sodium Chloride (Sodium Chloride 0.9%) 500 mls @ 84 mls/hr IV .Q5H58M [facility] Last Admin: 08/22/18 09:09 Dose: 84 mls/hr Insulin Detemir (Levemir) 15 units SC HS [facility] Insulin Human Lispro (Humalog) 10 units SC TIDAC [facility] Last Admin: 08/22/18 09:01 Dose: Not Given Lactulose (Enulose) 20 gm PO TID [facility] Last Admin: 08/22/18 09:00 Dose: Not Given Lidocaine (Lidoderm) 1 ea TD DAILY [facility] Last Admin: 08/22/18 09:08 Dose: 1 ea Losartan Potassium (Cozaar) 50 mg PO DAILY [facility] Metolazone (Zaroxolyn) 2.5 mg PO DAILY [facility] Rifaximin (Xifaxan) 550 mg PO BID [facility]; Protocol Last Admin: 08/22/18 09:07 Dose: Not Given Sitagliptin Phosphate (Januvia) 25 mg PO DAILY [facility] Last Admin: 08/22/18 09:01 Dose: Not Given Tiotropium [place] (Spiriva) 18 mcg INH DAILY [facility] Last Admin: 08/22/18 09:07 Dose: Not Given - Labs Labs: 08/22/18 05:40 08/22/18 05:40 PT 16.8 Seconds (9.8-13.1) H 08/20/18 17:55 INR 1.5 08/20/18 17:55 APTT 25.4 Seconds (25.6-37.1) L 08/20/18 17:55 - Constitutional Appears: Non-toxic, Chronically Ill - Head Exam Head Exam: NORMAL INSPECTION - Eye Exam Eye Exam: Normal appearance - Respiratory Exam Respiratory Exam: Decreased Breath Sounds, NORMAL BREATHING PATTERN - Cardiovascular Exam Cardiovascular Exam: +S1, +S2 - GI/Abdominal Exam GI & Abdominal Exam: Soft Additional comments: brusing unchanged, mild improvement - Extremities Exam Extremities Exam: Normal Inspection - Neurological Exam Neurological Exam: Alert, Awake - Skin Skin Exam: Normal Color, Warm Assessment and Plan - Assessment and Plan (Free Text) Assessment: dx pleural effusion ascites elevated wbc, improving chapo valvular heart disease chf lactic acidosis s/p thoracentesis plan available diagnostic data reviewed ID, Nephro, Cardio, Pulmonary following monitor labs monitor vitals attempt to increase bp, lactic acidosis possibly 2ndary to hypoperfusion, however caution due to patients renal status and accumulation of fluid in lungs/abdomen rest of plan as ordered
--- NOTE | 2018-08-22 09:31 | CP.PCM.PN ---
Subjective - Date & Time of Evaluation Date of Evaluation: 08/21/18 Time of Evaluation: 10:00 - Subjective Subjective: patient seen and examined at bedside interim events notes discussed with daughter patient with no complaints available diagnostic data reviewed Objective - Vital Signs/Intake and Output Vital Signs (last 24 hours): Temp Pulse Resp BP Pulse Ox 97.7 F 82 12 100/39 L 100 08/22/18 08:00 08/22/18 08:00 08/22/18 08:00 08/22/18 08:00 08/22/18 08:00 Intake and Output: 08/22/18 08/22/18 06:59 18:59 Intake Total 264 Balance 264 - Medications Medications: Current Medications Acetaminophen (Tylenol 325mg Tab) 650 mg PO Q6 PRN PRN Reason: Pain 1-10 Albuterol/Ipratropium (Duoneb 3 Mg/0.5 Mg (3 Ml) Ud) 3 ml INH RQ4 PRN PRN Reason: Shortness of Breath Last Admin: 08/22/18 01:00 Dose: 3 ml Albuterol/Ipratropium (Duoneb 3 Mg/0.5 Mg (3 Ml) Ud) 3 ml INH RTID [facility] Last Admin: 08/22/18 08:12 Dose: 3 ml Anastrozole (Arimidex 1 Mg Tab) 1 mg PO DAILY [facility] Last Admin: 08/22/18 09:00 Dose: Not Given Benzocaine/Menthol (Cepacol Sore Throat) 1 malu PO Q2 PRN PRN Reason: Sore Throat Calcium Acetate (Phoslo) 667 mg PO DAILY [facility] Dextrose (Dextrose 50% Inj) 0 ml IV STAT PRN; Protocol PRN Reason: Hypoglycemia Protocol Dextrose (Glutose 15) 0 gm PO ONCE PRN; Protocol PRN Reason: Hypoglycemia Protocol Dimethicone (Proshield Plus Skin Protectant) 1 applic TOP Q8 [facility] Last Admin: 08/22/18 01:00 Dose: 1 applic Ergocalciferol (Drisdol 50,000 Intl Units Cap) 1 cap PO QWK [facility] Escitalopram Oxalate (Lexapro) 20 mg PO DAILY [facility] Furosemide (Lasix) 40 mg IVP BID [facility] Glucagon (Glucagen Diagnostic Kit) 0 mg IM STAT PRN; Protocol PRN Reason: Hypoglycemia Protocol Guaifenesin/Dextromethorphan (Robitussin Dm) 10 ml PO Q6 PRN PRN Reason: Cough Meropenem 500 mg/ Sodium (Chloride) 100 mls @ 100 mls/hr IVPB DAILY [facility]; Protocol Levofloxacin/Dextrose (Levaquin 500mg) 500 mg in 100 mls @ 100 mls/hr IVPB Q48H [facility]; Protocol Last Admin: 08/22/18 02:55 Dose: 100 mls/hr Sodium Chloride (Sodium Chloride 0.9%) 500 mls @ 500 mls/hr IV .Q1H ONE Stop: 08/22/18 09:52 Last Admin: 08/22/18 09:06 Dose: 500 mls/hr Sodium Chloride (Sodium Chloride 0.9%) 500 mls @ 84 mls/hr IV .Q5H58M [facility] Last Admin: 08/22/18 09:09 Dose: 84 mls/hr Insulin Detemir (Levemir) 15 units SC HS [facility] Insulin Human Lispro (Humalog) 10 units SC TIDAC [facility] Last Admin: 08/22/18 09:01 Dose: Not Given Lactulose (Enulose) 20 gm PO TID [facility] Last Admin: 08/22/18 09:00 Dose: Not Given Lidocaine (Lidoderm) 1 ea TD DAILY [facility] Last Admin: 08/22/18 09:08 Dose: 1 ea Losartan Potassium (Cozaar) 50 mg PO DAILY [facility] Metolazone (Zaroxolyn) 2.5 mg PO DAILY [facility] Rifaximin (Xifaxan) 550 mg PO BID [facility]; Protocol Last Admin: 08/22/18 09:07 Dose: Not Given Sitagliptin Phosphate (Januvia) 25 mg PO DAILY [facility] Last Admin: 08/22/18 09:01 Dose: Not Given Tiotropium [place] (Spiriva) 18 mcg INH DAILY [facility] Last Admin: 08/22/18 09:07 Dose: Not Given - Labs Labs: 08/22/18 05:40 08/22/18 05:40 PT 16.8 Seconds (9.8-13.1) H 08/20/18 17:55 INR 1.5 08/20/18 17:55 APTT 25.4 Seconds (25.6-37.1) L 08/20/18 17:55 - Constitutional Appears: Non-toxic - Head Exam Head Exam: NORMAL INSPECTION - Respiratory Exam Respiratory Exam: Decreased Breath Sounds - Cardiovascular Exam Cardiovascular Exam: +S1, +S2 - GI/Abdominal Exam GI & Abdominal Exam: Soft Additional comments: brusing noted lower abdomen - Extremities Exam Extremities Exam: Normal Inspection - Skin Skin Exam: Normal Color, Warm Assessment and Plan - Assessment and Plan (Free Text) Assessment: dx pleural effusion ascites elevated wbc chapo valvular heart disease plan consult ID consult Nephro repeat labs pulmonary following, recommends fluid removal (thora vs para centesis) IR consulted monitor labs monitor vitals hold htn meds at this time rest of plan as ordered
--- NOTE | 2018-08-22 11:39 | CP.PCM.PN ---
<Anil Montelongo - Last Filed: 08/22/18 11:36> Subjective - Date & Time of Evaluation Date of Evaluation: 08/22/18 Time of Evaluation: 11:36 - Subjective Subjective: SURGERY NOTE FOR DR. BLACK 82F seen and examined at bedside. Patient resting comfortably. Moved to ICU overnight for Hypotensive episdode. Objective - Vital Signs/Intake and Output Vital Signs (last 24 hours): Temp Pulse Resp BP Pulse Ox 97.7 F 82 12 100/39 L 100 08/22/18 08:00 08/22/18 08:00 08/22/18 08:00 08/22/18 08:00 08/22/18 08:00 Intake and Output: 08/22/18 08/22/18 06:59 18:59 Intake Total 264 Balance 264 - Medications Medications: Current Medications Acetaminophen (Tylenol 325mg Tab) 650 mg PO Q6 PRN PRN Reason: Pain 1-10 Albuterol/Ipratropium (Duoneb 3 Mg/0.5 Mg (3 Ml) Ud) 3 ml INH RQ4 PRN PRN Reason: Shortness of Breath Last Admin: 08/22/18 01:00 Dose: 3 ml Albuterol/Ipratropium (Duoneb 3 Mg/0.5 Mg (3 Ml) Ud) 3 ml INH RTID [facility] Last Admin: 08/22/18 08:12 Dose: 3 ml Anastrozole (Arimidex 1 Mg Tab) 1 mg PO DAILY [facility] Last Admin: 08/22/18 09:00 Dose: Not Given Benzocaine/Menthol (Cepacol Sore Throat) 1 malu PO Q2 PRN PRN Reason: Sore Throat Calcium Acetate (Phoslo) 667 mg PO DAILY [facility] Dextrose (Dextrose 50% Inj) 0 ml IV STAT PRN; Protocol PRN Reason: Hypoglycemia Protocol Dextrose (Glutose 15) 0 gm PO ONCE PRN; Protocol PRN Reason: Hypoglycemia Protocol Dimethicone (Proshield Plus Skin Protectant) 1 applic TOP Q8 [facility] Last Admin: 08/22/18 01:00 Dose: 1 applic Ergocalciferol (Drisdol 50,000 Intl Units Cap) 1 cap PO QWK [facility] Escitalopram Oxalate (Lexapro) 20 mg PO DAILY [facility] Furosemide (Lasix) 40 mg IVP BID [facility] Glucagon (Glucagen Diagnostic Kit) 0 mg IM STAT PRN; Protocol PRN Reason: Hypoglycemia Protocol Guaifenesin/Dextromethorphan (Robitussin Dm) 10 ml PO Q6 PRN PRN Reason: Cough Meropenem 500 mg/ Sodium (Chloride) 100 mls @ 100 mls/hr IVPB DAILY [facility]; Protocol Levofloxacin/Dextrose (Levaquin 500mg) 500 mg in 100 mls @ 100 mls/hr IVPB Q48H [facility]; Protocol Last Admin: 08/22/18 02:55 Dose: 100 mls/hr Sodium Chloride (Sodium Chloride 0.9%) 500 mls @ 84 mls/hr IV .Q5H58M [facility] Last Admin: 08/22/18 09:09 Dose: 84 mls/hr Insulin Detemir (Levemir) 15 units SC HS [facility] Insulin Human Lispro (Humalog) 10 units SC TIDAC [facility] Last Admin: 08/22/18 09:01 Dose: Not Given Lactulose (Enulose) 20 gm PO TID [facility] Last Admin: 08/22/18 09:00 Dose: Not Given Lidocaine (Lidoderm) 1 ea TD DAILY [facility] Last Admin: 08/22/18 09:08 Dose: 1 ea Losartan Potassium (Cozaar) 50 mg PO DAILY [facility] Metolazone (Zaroxolyn) 2.5 mg PO DAILY [facility] Rifaximin (Xifaxan) 550 mg PO BID [facility]; Protocol Last Admin: 08/22/18 09:07 Dose: Not Given Sitagliptin Phosphate (Januvia) 25 mg PO DAILY [facility] Last Admin: 08/22/18 09:01 Dose: Not Given Tiotropium [place] (Spiriva) 18 mcg INH DAILY [facility] Last Admin: 08/22/18 09:07 Dose: Not Given - Labs Labs: 08/22/18 05:40 08/22/18 05:40 PT 16.8 Seconds (9.8-13.1) H 08/20/18 17:55 INR 1.5 08/20/18 17:55 APTT 25.4 Seconds (25.6-37.1) L 08/20/18 17:55 - Constitutional Appears: No Acute Distress - Respiratory Exam Respiratory Exam: NORMAL BREATHING PATTERN - Cardiovascular Exam Cardiovascular Exam: REGULAR RHYTHM, +S1, +S2 - GI/Abdominal Exam GI & Abdominal Exam: Soft. absent: Distended, Firm, Guarding, Rigid, Tenderness, Rebound Additional comments: ecchymosis improving No signs of hematoma - Extremities Exam Extremities Exam: absent: Pedal Edema, Tenderness Assessment and Plan - Assessment and Plan (Free Text) Assessment: 82F with abdominal wall hematoma 2/2 inferior epigastric bleed, stable, hgb stable Plan: - ICU management - abdominal exams - Monitor vitals - Monitor H&H Further recs discuss with Dr. Sofia Montelongo, PGY3 <Terrence Black - Last Filed: 08/24/18 20:00> Objective - Vital Signs/Intake and Output Vital Signs (last 24 hours): Temp Pulse Resp BP Pulse Ox 97.0 F L 106 H 10 L 117/39 L 100 08/24/18 16:00 08/24/18 19:47 08/24/18 18:00 08/24/18 18:00 08/24/18 18:00 Intake and Output: 08/24/18 08/25/18 18:59 06:59 Intake Total 1361 Output Total 250 Balance 1111 - Medications Medications: Current Medications Acetaminophen (Tylenol 325mg Tab) 650 mg PO Q6 PRN PRN Reason: Pain 1-10 Albumin Human (Albumin Human 25% (12.5 Gm/50 Ml)) 25 gm IV ONCE ONE Stop: 08/24/18 19:12 Albuterol/Ipratropium (Duoneb 3 Mg/0.5 Mg (3 Ml) Ud) 3 ml INH RQ4 PRN PRN Reason: Shortness of Breath Last Admin: 08/22/18 01:00 Dose: 3 ml Albuterol/Ipratropium (Duoneb 3 Mg/0.5 Mg (3 Ml) Ud) 3 ml INH RTID [facility] Last Admin: 08/24/18 19:17 Dose: 3 ml Anastrozole (Arimidex 1 Mg Tab) 1 mg PO DAILY [facility] Last Admin: 08/22/18 09:00 Dose: Not Given Benzocaine/Menthol (Cepacol Sore Throat) 1 malu PO Q2 PRN PRN Reason: Sore Throat Calcium Acetate (Phoslo) 667 mg PO DAILY [facility] Last Admin: 08/22/18 10:00 Dose: Not Given Dextrose (Dextrose 50% Inj) 0 ml IV STAT PRN; Protocol PRN Reason: Hypoglycemia Protocol Dextrose (Glutose 15) 0 gm PO ONCE PRN; Protocol PRN Reason: Hypoglycemia Protocol Dimethicone (Proshield Plus Skin Protectant) 1 applic TOP Q8 [facility] Last Admin: 08/24/18 17:50 Dose: 1 applic Ergocalciferol (Drisdol 50,000 Intl Units Cap) 1 cap PO QWK [facility] Escitalopram Oxalate (Lexapro) 20 mg PO DAILY [facility] Furosemide (Lasix) 40 mg IVP BID [facility] Glucagon (Glucagen Diagnostic Kit) 0 mg IM STAT PRN; Protocol PRN Reason: Hypoglycemia Protocol Guaifenesin/Dextromethorphan (Robitussin Dm) 10 ml PO Q6 PRN PRN Reason: Cough Last Admin: 08/23/18 10:05 Dose: 10 ml Meropenem 500 mg/ Sodium (Chloride) 100 mls @ 100 mls/hr IVPB DAILY [facility]; Protocol Last Admin: 08/24/18 09:44 Dose: 100 mls/hr Levofloxacin/Dextrose (Levaquin 500mg) 500 mg in 100 mls @ 100 mls/hr IVPB Q48H [facility]; Protocol Last Admin: 08/24/18 01:32 Dose: 100 mls/hr Dobutamine HCl/Dextrose (Dobutamine/Dextrose 5% 500mg/250ml) 500 mg in 250 mls @ 4.388 mls/hr IV .Q24H [facility] Last Admin: 08/23/18 13:11 Dose: 4.388 mls/hr Potassium Chloride (Potassium Chloride 20 Meq/100 Ml) 100 mls @ 50 mls/hr IVPB Q2 [facility] Stop: 08/24/18 19:59 Last Admin: 08/24/18 17:58 Dose: 50 mls/hr Insulin Detemir (Levemir) 15 units SC HS [facility] Insulin Human Lispro (Humalog) 10 units SC TIDAC [facility] Last Admin: 08/22/18 12:31 Dose: Not Given Insulin Human Regular (Humulin R) 0 units SC ACCU-CHECK [facility]; Protocol Last Admin: 08/24/18 17:37 Dose: 2 unit Lactulose (Enulose) 20 gm PO TID [facility] Last Admin: 08/24/18 17:38 Dose: Not Given Lidocaine (Lidoderm) 1 ea TD DAILY [facility] Last Admin: 08/24/18 09:53 Dose: 1 ea Losartan Potassium (Cozaar) 50 mg PO DAILY [facility] Metolazone (Zaroxolyn) 2.5 mg PO DAILY [facility] Phenol/Menthol (Phenaseptic 1.4% Throat [place]) 1 spry MT Q2 PRN PRN Reason: Pain, Mild (1-3) Last Admin: 08/23/18 15:59 Dose: 1 spray Rifaximin (Xifaxan) 550 mg PO BID [facility]; Protocol Last Admin: 08/22/18 09:07 Dose: Not Given Sitagliptin Phosphate (Januvia) 25 mg PO DAILY [facility] Last Admin: 08/22/18 09:01 Dose: Not Given Tiotropium [place] (Spiriva) 18 mcg INH DAILY [facility] Last Admin: 08/24/18 09:51 Dose: Not Given - Labs Labs: 08/24/18 06:45 08/24/18 06:45 PT 15.7 Seconds (9.8-13.1) H 08/24/18 06:45 INR 1.4 08/24/18 06:45 APTT 32.2 Seconds (25.6-37.1) 08/24/18 06:45 Attending/Attestation - Attestation I have personally seen and examined this patient.: Yes I have fully participated in the care of the patient.: Yes I have reviewed all pertinent clinical information, including history, physical exam and plan: Yes Notes (Text): Pt was seen and examined at bedside Agree with above note and assessment Pt had episode of hypotension Hb is stable Abdominal exam unchanged Repeat CT scan if HB trending opal c.w current mx Plan d.w p's daughter and primary team in detail Risk and benefit explained in detail.
[2018-08-22] MEDS ORDERED: Lidocaine 1% Inj (20ml) ONE (11:40)
--- NOTE | 2018-08-22 12:31 | PQF ---
PROVIDER RESPONSE TEXT: CKD 2 REVIEWER QUERY TEXT: Kidney Disease, Chronic CKD Stage Chronic Kidney Disease (CKD) is documented in the Medical Record. Please specify the disease stage ( includes probable or suspected) versus CKD ruled out Such as: -- Chronic kidney disease Stage 1 -- Chronic kidney disease Stage 2 -- Chronic kidney disease Stage 3 -- Chronic kidney disease Stage 4 -- Chronic kidney disease Stage 5 -- Chronic kidney disease Stage 5, requiring dialysis -- End Stage Renal Disease -- Other, please specify Creatinine: 0.9->1.0->0.9->0.9->1.2->1.1 Est GFR ( Amer ):>60-->60--->60-->60-->52->58 Esr GFR (non-Af Amer):60->53->60->60->43->48 H and P: Hx Chronic Kidney Disease: Yes Stages are defined by the [employer] as follows: CKD Stage I GFR >= 90 ml / min per 1.73 m2 and persistent albuminuria CKD Stage 2 GFR between 60 and 89 with persistent albuminuria CKD Stage 3 GFR between 30 and 59 CKD Stage 4 GFR between 15 and 29 CKD Stage 5 GFR between <15 or End Stage Renal DiseaseChronic Kidney Disease (CKD) is documented in t he Medical Record. Please specify the disease stage (includes probable or suspected) versus CKD rul ed out Such as: -- Chronic kidney disease Stage 1 -- Chronic kidney disease Stage 2 -- Chronic kidney disease Stage 3 -- Chronic kidney disease Stage 4 -- Chronic kidney disease Stage 5 -- Chronic kidney disease Stage 5, requiring dialysis -- End Stage Renal Disease -- Other, please specify Creatinine: 0.9->1.0->0.9->0.9->1.2->1.1 Est GFR ( Amer ):>60-->60--->60-->60-->52->58 Esr GFR (non-Af Amer):60->53->60->60->43->48 H and P: Hx Chronic Kidney Disease: Yes Stages are defined by the [employer] as follows: CKD Stage I GFR >= 90 ml / min per 1.73 m2 and persistent albuminuria CKD Stage 2 GFR between 60 and 89 with persistent albuminuria CKD Stage 3 GFR between 30 and 59 CKD Stage 4 GFR between 15 and 29 CKD Stage 5 GFR between <15 or End Stage Renal Disease The patient's Clinical Indicators include: -- Query created by: Rosa Mejia on 08/17/2018 7:45 AM Electronically signed by: Rojelio Wayne 08/22/2018 10:47 AM
--- NOTE | 2018-08-22 12:45 | PCM.SURG1 ---
Surgeon's Initial Post Op Note - Surgeon's Notes Surgeon: Erik Ramirez MD Economics Lecturer: NONE Type of Anesthesia: Local Pre-Operative Diagnosis: Poor venous access Operative Findings: US showed patent left basilic vein Post-Operative Diagnosis: Poor venous access Operation Performed: Double lumen picc placement left arm Specimen/Specimens Removed: none Estimated Blood Loss: EBL {In ML}: 2 Blood Products Given: N/A Drains Used: No Drains Post-Op Condition: Fair Date of Surgery/Procedure: 08/22/18 Time of Surgery/Procedure: 12:45
--- NOTE | 2018-08-22 13:21 | VASCULAR ---
PROCEDURE: Date of procedure: 08/22/2018 Procedure: 1. Placement of a left arm PICC with ultrasound and fluoroscopic guidance, CPT 87969 2. PICC tip confirmation with spot radiograph and is in the superior vena cava Medications: 1 percent lidocaine Total Fluoro time: 14 seconds Radiation: 2.03 MGy EBL: 3 cc HISTORY: Infection requiring long-term IV antibiotics TECHNIQUE: Following informed consent and procedure time-out, the patient placed supine on the interventional table and the left arm prepped and draped in the usual sterile fashion. Ultrasound showed a patent and compressible left basilic vein. After the skin was anesthetized with lidocaine, the basilic vein was accessed with micro micropuncture technique using ultrasound guidance. A guidewire was then advanced under fluoroscopic guidance into the superior vena cava. An image documenting ultrasound guidance for vascular access was permanently saved. The length of a double-lumen 5 [place] PICC was trimmed to 43 cm and advanced through a peel-away sheath. The PICC was position with tip of PICC confirm a spot radiograph the superior vena cava. The PICC was secured to the patient's skin. The PICC was flushed. A biopatch and sterile dressing was applied. IMPRESSION: Placement of a double-lumen 5 [place] PICC left basilic vein trimmed to 43 cm. The tip of the PICC is confirmed with spot radiograph and is in the superior vena cava.
--- NOTE | 2018-08-22 13:22 | US ---
PROCEDURE: Date of procedure: 08/21/2018 Procedure: 1. Ultrasound-guided Right thoracentesis, CPT 53721 Medications: 6cc 1% Lidocaine HISTORY: Right pleural effusion, shortness of breath TECHNIQUE: Following informed consent ,the Patients' right chest was marked. Procedure time-out was called, and the patient was placed in the sitting position and limited ultrasound showed a large right effusion. The patient's right back was prepped and draped in the usual sterile fashion. After the skin was anesthetized with lidocaine, a drainage catheter was advanced under ultrasound guidance into the pleural space. Ultrasound-guided thoracentesis was performed. A total of 1200 cubic centimeters of straw-colored fluid removed without complication. A Xeroform dressing was applied. IMPRESSION: Ultrasound guided Right thoracentesis. There were no immediate complications.
--- NOTE | 2018-08-22 14:09 | CP.PCM.PN ---
Subjective - Date & Time of Evaluation Date of Evaluation: 08/22/18 Time of Evaluation: 07:00 - Subjective Subjective: went for thoracentesis became hypotensive in ICU family at bedside awake alert NAD Objective - Vital Signs/Intake and Output Vital Signs (last 24 hours): Temp Pulse Resp BP Pulse Ox 97.5 F L 82 16 108/64 97 08/22/18 12:04 08/22/18 12:04 08/22/18 12:04 08/22/18 12:04 08/22/18 12:04 Intake and Output: 08/22/18 08/22/18 06:59 18:59 Intake Total 264 868 Balance 264 868 - Medications Medications: Current Medications Acetaminophen (Tylenol 325mg Tab) 650 mg PO Q6 PRN PRN Reason: Pain 1-10 Albuterol/Ipratropium (Duoneb 3 Mg/0.5 Mg (3 Ml) Ud) 3 ml INH RQ4 PRN PRN Reason: Shortness of Breath Last Admin: 08/22/18 01:00 Dose: 3 ml Albuterol/Ipratropium (Duoneb 3 Mg/0.5 Mg (3 Ml) Ud) 3 ml INH RTID [facility] Last Admin: 08/22/18 08:12 Dose: 3 ml Anastrozole (Arimidex 1 Mg Tab) 1 mg PO DAILY [facility] Last Admin: 08/22/18 09:00 Dose: Not Given Benzocaine/Menthol (Cepacol Sore Throat) 1 malu PO Q2 PRN PRN Reason: Sore Throat Calcium Acetate (Phoslo) 667 mg PO DAILY [facility] Last Admin: 08/22/18 10:00 Dose: Not Given Dextrose (Dextrose 50% Inj) 0 ml IV STAT PRN; Protocol PRN Reason: Hypoglycemia Protocol Dextrose (Glutose 15) 0 gm PO ONCE PRN; Protocol PRN Reason: Hypoglycemia Protocol Dimethicone (Proshield Plus Skin Protectant) 1 applic TOP Q8 [facility] Last Admin: 08/22/18 01:00 Dose: 1 applic Ergocalciferol (Drisdol 50,000 Intl Units Cap) 1 cap PO QWK [facility] Escitalopram Oxalate (Lexapro) 20 mg PO DAILY [facility] Furosemide (Lasix) 40 mg IVP BID [facility] Glucagon (Glucagen Diagnostic Kit) 0 mg IM STAT PRN; Protocol PRN Reason: Hypoglycemia Protocol Guaifenesin/Dextromethorphan (Robitussin Dm) 10 ml PO Q6 PRN PRN Reason: Cough Meropenem 500 mg/ Sodium (Chloride) 100 mls @ 100 mls/hr IVPB DAILY [facility]; Protocol Levofloxacin/Dextrose (Levaquin 500mg) 500 mg in 100 mls @ 100 mls/hr IVPB Q48H [facility]; Protocol Last Admin: 08/22/18 02:55 Dose: 100 mls/hr Sodium Chloride (Sodium Chloride 0.9%) 500 mls @ 84 mls/hr IV .[id number] [facility] Last Admin: 08/22/18 09:09 Dose: 84 mls/hr Insulin Detemir (Levemir) 15 units SC HS [facility] Insulin Human Lispro (Humalog) 10 units SC TIDAC [facility] Last Admin: 08/22/18 12:31 Dose: Not Given Lactulose (Enulose) 20 gm PO TID [facility] Last Admin: 08/22/18 12:31 Dose: Not Given Lidocaine (Lidoderm) 1 ea TD DAILY [facility] Last Admin: 08/22/18 09:08 Dose: 1 ea Losartan Potassium (Cozaar) 50 mg PO DAILY [facility] Metolazone (Zaroxolyn) 2.5 mg PO DAILY [facility] Rifaximin (Xifaxan) 550 mg PO BID [facility]; Protocol Last Admin: 08/22/18 09:07 Dose: Not Given Sitagliptin Phosphate (Januvia) 25 mg PO DAILY [facility] Last Admin: 08/22/18 09:01 Dose: Not Given Tiotropium [place] (Spiriva) 18 mcg INH DAILY [facility] Last Admin: 08/22/18 09:07 Dose: Not Given - Labs Labs: 08/22/18 05:40 08/22/18 05:40 PT 16.8 Seconds (9.8-13.1) H 08/20/18 17:55 INR 1.5 08/20/18 17:55 APTT 25.4 Seconds (25.6-37.1) L 08/20/18 17:55 - Constitutional Appears: Non-toxic, Chronically Ill - Head Exam Head Exam: NORMOCEPHALIC - Eye Exam Eye Exam: absent: Scleral icterus - ENT Exam ENT Exam: Mucous Membranes Dry - Neck Exam Neck Exam: absent: Lymphadenopathy - Respiratory Exam Respiratory Exam: Decreased Breath Sounds - Cardiovascular Exam Cardiovascular Exam: REGULAR RHYTHM, +S1, +S2 - GI/Abdominal Exam GI & Abdominal Exam: Distended, Soft. absent: Tenderness - Rectal Exam Rectal Exam: Deferred - Exam Exam: NORMAL INSPECTION - Extremities Exam Extremities Exam: absent: Pedal Edema - Back Exam Back Exam: absent: CVA tenderness (L), CVA tenderness (R) - Neurological Exam Neurological Exam: Alert, Awake, CN II-XII Intact - Psychiatric Exam Psychiatric exam: Depressed - Skin Skin Exam: Dry Assessment and Plan (1) CHF (congestive heart failure) Status: Acute (2) HCAP (healthcare-associated pneumonia) Status: Acute (3) Pleural effusion Status: Acute (4) Acute diastolic heart failure due to valvular disease Status: Acute (5) Acute dyspnea Status: Acute (6) Acute renal failure Status: Acute - Assessment and Plan (Free Text) Assessment: cont present IV antibiotics follow up on cultures from thoracentesis- may need chest tube ?
[2018-08-22] MEDS: Meropenem 500 MG in Sodium Chloride 0.9% 100 ML IVPB SCH (14:38)
--- NOTE | 2018-08-22 15:30 | CP.CCUPN ---
CCU Subjective - Physician Review Subjective (Free Text): Sleeping / lethargic, but easily arousable to verbal stimuli, does not appear distressed. Temps mostly 97F, SBP 100-110s, HR 90s, RR 16, SPo2 100% on NC. A total of 5 liters of fluid challenge given overnight post transfer from telemetry unit. ROS: No other pertinent negs or positives on 10+ system review- unobtainable due to sedation PMSFH: All other Nursing and physician documentation reviewed to date; no new pertinent info noted relevant to current medical problems. EXAM- HEENT: no icterus, no gaze preference NECK: No JVD visible, supple, carotids equal upstroke bilat/no bruit. CHEST: decreased BS at the bases, especially R base; no wheezes audible bilaterally. HEART: irregular, distant, S1S2, no rubs or murmurs noted ABD: soft, nontender, no guarding, no organomegaly, BS hypoactive, lower abd wall ecchymoses. EXT: +1 leg edema, no calf tenderness or palpable cords, distal pulses faint but symmetrical. NEURO: withdraws to pain, + tone in all extremities. SKIN: no rashes, warm and dry LABS: WBC= 20.5 HGB= 11.5 PLTs= 68K Na= 129 K= 4.0 CL= 87 HCO3= 32 BUN/Cr= 118/4.1 BS= 128 Lactate= 3.2 CXR: (my interp)- Aug 21: clear bilat. IMPRESSION / MAJOR PROBLEMS NOW: 1. Acute resp insuff 2 Pleural effusion ( r/o parapneumonic / pneumonia process) and s/p R Thora. 2. Hypotension / Shock 2 Hypovolemia / antiHTN meds-Diuretics. 3. Metabolic Encephalopathy (Azotemia, Hyperammonianemia), r/o Toxic Drug effect (Lexapro) 4. Hyponatremia 2 Hypovolemia / Diuretics 5. Abdom Wall Hematoma 6. Chronic A fib with controlled VR, PPM. PLAN: 1. IVF bolus, and fluids increased to 2 liters per day today. No clinical CHF decompensation noted. Discussed with Nephro. 2. Meds placed on HOLD: Lexapro, Lasix, Metolazone, and Losartan. 3. Repeat serial Lactates. Check VBG shock panel post PICC placement. 4. Platelet count lower, check coags, Fib level; r/o DIC. 5. Previous Advance Directives rescinded.
[2018-08-22 20:28] LABS: ABG ALLEN TEST YES; ARTERIAL BLOOD GAS HCO3 30.5 mmol/L (21-28); ARTERIAL BLOOD GAS HEMOGLOBIN 11.4 g/dL (11.7-17.4); ARTERIAL BLOOD GAS O2 CAPACITY 15.5 mL/dL (16-24); ARTERIAL BLOOD GAS O2 CONTENT 15.1 ML/dL (15-23); ARTERIAL BLOOD GAS O2 SAT 97.6 % (95-98); ARTERIAL BLOOD GAS PCO2 41 mm/Hg (35-45); ARTERIAL BLOOD GAS PH 7.49 (7.35-7.45); ARTERIAL BLOOD GAS PO2 71 mm/Hg (80-100); ARTERIAL BLOOD GAS TCO2 32.5 mmol/L (22-28)
[2018-08-22] MEDS ORDERED: Insulin Detemir 100 Units/ml Inj SC SCH (22:00)
[2018-08-22] MEDS: Sodium Chloride 0.9% 1,000 ML IV SCH (23:21)
[2018-08-22] MEDS: guaiFENesin DM 200 mg-20 mg/10 ml UD PO PRN (23:23)
[2018-08-22] MEDS: Insulin Regular 100 units/ml SC SCH (23:27)
[2018-08-23] MEDS: Proshield Plus GEL TOP SCH ×3 (01:38→17:57)
[2018-08-23 02:27] LABS: SQUAMOUS EPITHIAL < 1 /hpf (0-5); URINE BACTERIA RARE (<OCC); URINE BILIRUBIN NEGATIVE (NEGATIVE); URINE BLOOD MODERATE (NEGATIVE); URINE CLARITY CLOUDY (Clear); URINE COLOR YELLOW (YELLOW); URINE GLUCOSE (UA) NEG (NEGATIVE); URINE LEUKOCYTE ESTERASE NEG Leu/uL (Negative); URINE PROTEIN 30 mg/dL (NEGATIVE); URINE UROBILINOGEN 0.2-1.0 mg/dL (0.2-1.0)
--- NOTE | 2018-08-23 04:01 | PN ---
DATE: 08/22/2018 FOLLOWUP RENAL CONSULTATION LOCATION: The patient is located in ICU, room 427. REQUESTED BY: Chintan Wayne M.D. REASON FOR FOLLOWUP: Acute renal failure, chronic kidney disease. SUBJECTIVE: Mrs. Sheth is an 82-year-old elderly female with past medical history significant for hypertension, diabetes, pulmonary hypertension, status post treatment with medication for one year, and subsequently, the patient developed cirrhosis of the liver as per the patient's family and also moderate to severe tricuspid regurgitation. The patient was admitted with chief complaints of cough, shortness of breath, and also found to have a pleural effusion, status post thoracentesis x2, last one yesterday. The patient was transferred to ICU for worsening renal function and lethargy. The patient is not in distress, awake, and following simple commands. PHYSICAL EXAMINATION: VITAL SIGNS: This morning, blood pressure 100/39, pulse 82, respirations about 12, temperature 97.7, saturation 100%. Height 4 feet 11 inches, weight is 129 pounds. GENERAL: Mrs. Sheth is an 82-year-old elderly female, moderately built, moderately nourished, not in distress. HEENT: Pupils normal and reactive to light and accommodation. Conjunctivae pink. Sclerae anicteric. Tongue is dry. Trachea is midline. LUNGS: Symmetric on both sides. Bilateral breath sounds present. Occasional basal crackles present. CARDIOVASCULAR SYSTEM: [place] at the fifth intercostal space, midclavicular line. S1 and S2 audible. No murmur or gallop. ABDOMEN: Normal in appearance, soft, tympanitic. No guarding. No rigidity. The patient has ecchymosis in the lower abdomen from the previous sc heparin CENTRAL NERVOUS SYSTEM: The patient is drowsy, arousable, and following simple commands. EXTREMITIES: No cyanosis, no clubbing, no edema. MEDICATIONS: Her current medications include as follows: Anastrozole on hold, Losartan is on hold, vitamin D is on hold, lactulose is on hold, Novolog on hold, Januvia on hold, Lasix on hold, Levemir on hold, Lexapro is on hold, and PhosLo is on hold. Started on IV fluids about 42 mL per hour and increased to 84 this morning after discussion with ICU attending Dr. Monroe, on Spiriva 18 mcg inhaler daily, Xifaxan on hold, and metolazone is on hold. Her intake and output, unable to document I's and O's by the ICU. Intake is 1472 and output is not clear. LABORATORY DATA: Include as follows: As of 08/22/2018, WBC 20.5, hemoglobin 11.5, hematocrit is 34.1, platelets 68. Sodium 129, potassium is 4, chloride 87, CO2 of 32, BUN 118, creatinine 4.1, glucose 128, and lactic acid 3.2, calcium is 10.6, total bilirubin 1.7, AST 37, ALT 53, alkaline phosphatase 73, ammonia 61, total protein is 5.4, albumin is 2.3. TSH is 4.24. Blood culture x2 negative as of 08/21/2018 and also blood culture x2 are negative day 5, times 2 from 08/17/2018. Chest x-ray as of 08/21/2018, no active disease. IMPRESSION AND PLAN: In summary, Mrs. Sheth is an 82-year-old elderly female with history of hypertension, diabetes, pulmonary hypertension, moderate to severe tricuspid regurgitation, status post treatment for pul. htn, Subsequently the patient developed cirrhosis of the liver as per the patient's family, being treated for cirrhosis and now admitted about 10 days ago with shortness of breath and cough, whitish yellow sputum, being treated for pneumonia and congestive heart failure with vigorous diuresis with increased blood urea nitrogen and creatinine. 1. Acute renal failure, on chronic kidney secondary to vigorous diuresis and intravascular volume depletion. 2. Hypertension secondary to intravascular depletion. 3. Hyponatremia secondary to hypovolemia, hypotonic hypovolemic hyponatremia. 4. Thrombocytopenia. PLAN: Increase IV fluids to 84 mL per hour. Repeat BMP in a.m. Check urine culture. Check urine lytes and osmolality. Unable to monitor urine output and volume. We will request Cr[place] catheter placement for strict I's and O's and monitoring. We will follow with you. Thank you for allowing me to participate in your patient's care. Lalita Stovall MD [facility]
[2018-08-23 05:37] LABS: HEMOGLOBIN 11.2 g/dL (12.0-16.0); INR 1.3; MEAN CELL VOLUME 98.6 fl (81.0-99.0); MEAN CORPUSCULAR HEMOGLOBIN 33.2 pg (27.0-31.0); MEAN CORPUSCULAR HGB CONC 33.7 g/dL (33.0-37.0); RBC 3.37 Mil/uL (3.80-5.20); RED CELL DISTRIBUTION WIDTH 14.5 % (11.5-14.5); WHITE BLOOD COUNT 18.8 K/uL (4.8-10.8)
[2018-08-23 05:40] LABS: PARTIAL THROMBOPLASTIN TIME 32.7 Seconds (25.6-37.1)
[2018-08-23 06:16] LABS: ALB/GLOB RATIO 0.7 (1.0-2.1); ALBUMIN 2.3 g/dL (3.5-5.0); CALCIUM 9.6 mg/dL (8.4-10.2)
[2018-08-23] MEDS: Insulin Regular 100 units/ml SC SCH ×4 (07:00→23:22)
[2018-08-23] MEDS: Albuterol-Ipratrop 3 mg / 0.5 (3 ml) UD INH SCH ×3 (07:30→19:19)
--- NOTE | 2018-08-23 09:47 | CP.PCM.PN ---
Subjective - Date & Time of Evaluation Date of Evaluation: 08/23/18 Time of Evaluation: 09:47 - Subjective Subjective: STILL WEAK NO APPARENT DISTRESS TRANSFERRED TO ICU AND DNR/DNI CANCELED Objective - Vital Signs/Intake and Output Vital Signs (last 24 hours): Temp Pulse Resp BP Pulse Ox 97.9 F 106 H 27 H 98/29 L 93 L 08/23/18 08:00 08/23/18 08:00 08/23/18 08:00 08/23/18 08:00 08/23/18 08:00 Intake and Output: 08/23/18 08/23/18 06:59 18:59 Intake Total 1058 Output Total 155 Balance 903 - Medications Medications: Current Medications Acetaminophen (Tylenol 325mg Tab) 650 mg PO Q6 PRN PRN Reason: Pain 1-10 Albuterol/Ipratropium (Duoneb 3 Mg/0.5 Mg (3 Ml) Ud) 3 ml INH RQ4 PRN PRN Reason: Shortness of Breath Last Admin: 08/22/18 01:00 Dose: 3 ml Albuterol/Ipratropium (Duoneb 3 Mg/0.5 Mg (3 Ml) Ud) 3 ml INH RTID [facility] Last Admin: 08/23/18 07:30 Dose: 3 ml Anastrozole (Arimidex 1 Mg Tab) 1 mg PO DAILY [facility] Last Admin: 08/22/18 09:00 Dose: Not Given Benzocaine/Menthol (Cepacol Sore Throat) 1 malu PO Q2 PRN PRN Reason: Sore Throat Calcium Acetate (Phoslo) 667 mg PO DAILY [facility] Last Admin: 08/22/18 10:00 Dose: Not Given Dextrose (Dextrose 50% Inj) 0 ml IV STAT PRN; Protocol PRN Reason: Hypoglycemia Protocol Dextrose (Glutose 15) 0 gm PO ONCE PRN; Protocol PRN Reason: Hypoglycemia Protocol Dimethicone (Proshield Plus Skin Protectant) 1 applic TOP Q8 [facility] Last Admin: 08/23/18 01:38 Dose: 1 applic Ergocalciferol (Drisdol 50,000 Intl Units Cap) 1 cap PO QWK [facility] Escitalopram Oxalate (Lexapro) 20 mg PO DAILY [facility] Furosemide (Lasix) 40 mg IVP BID [facility] Glucagon (Glucagen Diagnostic Kit) 0 mg IM STAT PRN; Protocol PRN Reason: Hypoglycemia Protocol Guaifenesin/Dextromethorphan (Robitussin Dm) 10 ml PO Q6 PRN PRN Reason: Cough Last Admin: 08/22/18 23:23 Dose: 10 ml Meropenem 500 mg/ Sodium (Chloride) 100 mls @ 100 mls/hr IVPB DAILY [facility]; Prot ocol Last Admin: 08/22/18 14:38 Dose: 100 mls/hr Levofloxacin/Dextrose (Levaquin 500mg) 500 mg in 100 mls @ 100 mls/hr IVPB Q48H [facility]; Protocol Last Admin: 08/22/18 02:55 Dose: 100 mls/hr Sodium Chloride (Sodium Chloride 0.9%) 1,000 mls @ 84 mls/hr IV .[id number] [facility] Stop: 08/23/18 18:35 Last Admin: 08/22/18 23:21 Dose: 84 mls/hr Insulin Detemir (Levemir) 15 units SC HS [facility] Insulin Human Lispro (Humalog) 10 units SC TIDAC [facility] Last Admin: 08/22/18 12:31 Dose: Not Given Insulin Human Regular (Humulin R) 0 units SC ACCU-CHECK [facility]; Protocol Last Admin: 08/22/18 23:27 Dose: Not Given Lactulose (Enulose) 20 gm PO TID [facility] Last Admin: 08/22/18 23:24 Dose: 20 gm Lidocaine (Lidoderm) 1 ea TD DAILY [facility] Last Admin: 08/22/18 09:08 Dose: 1 ea Losartan Potassium (Cozaar) 50 mg PO DAILY [facility] Metolazone (Zaroxolyn) 2.5 mg PO DAILY [facility] Rifaximin (Xifaxan) 550 mg PO BID [facility]; Protocol Last Admin: 08/22/18 09:07 Dose: Not Given Sitagliptin Phosphate (Januvia) 25 mg PO DAILY [facility] Last Admin: 08/22/18 09:01 Dose: Not Given Tiotropium [place] (Spiriva) 18 mcg INH DAILY [facility] Last Admin: 08/22/18 09:07 Dose: Not Given - Labs Labs: 08/23/18 04:30 08/23/18 04:30 PT 15.0 Seconds (9.8-13.1) H 08/23/18 04:30 INR 1.3 08/23/18 04:30 APTT 32.7 Seconds (25.6-37.1) 08/23/18 04:30 - Constitutional Appears: Chronically Ill - Head Exam Head Exam: ATRAUMATIC, NORMAL INSPECTION, NORMOCEPHALIC - Eye Exam Eye Exam: EOMI, Normal appearance, PERRL Pupil Exam: NORMAL ACCOMODATION, PERRL - ENT Exam ENT Exam: Mucous Membranes Moist, Normal Exam - Neck Exam Neck Exam: Full ROM, Normal Inspection. absent: Lymphadenopathy - Respiratory Exam Respiratory Exam: Decreased Breath Sounds, Prolonged Expiratory Phase, Rales, NORMAL BREATHING PATTERN - Cardiovascular Exam Cardiovascular Exam: REGULAR RHYTHM, +S1, +S2. absent: Murmur - GI/Abdominal Exam GI & Abdominal Exam: Soft, Normal Bowel Sounds. absent: Tenderness - Rectal Exam Rectal Exam: NORMAL INSPECTION - Extremities Exam Extremities Exam: Full ROM, Normal Capillary Refill, Normal Inspection. absent: Joint Swelling, Pedal Edema - Back Exam Back Exam: NORMAL INSPECTION - Neurological Exam Additional comments: EASILY AROUSABLE - Psychiatric Exam Psychiatric exam: Normal Affect, Normal Mood - Skin Skin Exam: Dry, Intact, Normal Color, Warm Assessment and Plan - Assessment and Plan (Free Text) Assessment: RESPIRATORY FAILURE--R/O SUPERIMPOSED PNEUMONIA RECURRENT PLEURAL EFFUSION RENAL FAILURE VALVULAR HEART DZ CHF Plan: CONTINUE CURRENT RX
[2018-08-23] MEDS: Lidocaine 5% Patch TD SCH (09:58)
[2018-08-23] MEDS: Meropenem 500 MG in Sodium Chloride 0.9% 100 ML IVPB SCH (09:58)
[2018-08-23] MEDS: Tiotropium 18 mcg Cap For Inhalation INH SCH (10:00)
[2018-08-23] MEDS: guaiFENesin DM 200 mg-20 mg/10 ml UD PO PRN (10:05)
--- NOTE | 2018-08-23 10:06 | RAD ---
Date of service: 08/23/2018 HISTORY: F/U PLEURAL EFFUSION COMPARISON: Chest x-ray 08/21/2018 TECHNIQUE: Chest one view . FINDINGS: LUNGS: Moderate to large right pleural effusion, underlying consolidation cannot be excluded. Small left pleural effusion. PLEURA: See above CARDIOVASCULAR: Heart size is enlarged. Atherosclerotic calcifications present of the aorta.There is a left-sided PICC line with tip overlying the region of the distal SVC/right atrial junction. 2 lead right-sided cardiac pacemaker/AICD noted with lead tips overlying the region of the right atrium and right ventricle. OSSEOUS STRUCTURES: Degenerative changes noted of the spine. VISUALIZED UPPER ABDOMEN: Unremarkable. OTHER FINDINGS: None. IMPRESSION: Moderate to large right pleural effusion, new from prior exam, underlying consolidation not excluded. small left pleural effusion. Additional findings as above.
--- NOTE | 2018-08-23 10:17 | CP.CCUPN ---
CCU Subjective - Physician Review Subjective (Free Text): Remains lethargic, moans and grimaces to pain, does not appear distressed. Temps mostly 97-98F, SBP 100s, HR 90s, RR 16, SPo2 94% on NC. Positive 2.2 liters of fluid balance last 24H. NGT not inserted overnight as she was able to take some PO meds, and was fed PO with assistance. NSS at 84 ml/hr, appreciable diarrheal output noted, oliguria noted with only 155 ml urine last 12H. ROS: No other pertinent negs or positives on 10+ system review- unobtainable due to lethargy. PMSFH: All other Nursing and physician documentation reviewed to date; no new pertinent info noted relevant to current medical problems. EXAM- HEENT: no icterus, no gaze preference NECK: No JVD visible, supple, carotids equal upstroke bilat/no bruit. CHEST: decreased BS at the bases, especially R base; no wheezes audible bilaterally. HEART: irregular, distant, S1S2, no rubs or murmurs noted ABD: soft, nontender, no guarding, no organomegaly, BS hypoactive, lower abd wall ecchymoses. EXT: +1 leg edema, no calf tenderness or palpable cords, distal pulses faint but symmetrical. NEURO: withdraws to pain, + tone in all extremities. SKIN: no rashes, warm and dry LABS: WBC= 18.8 HGB= 11.2 PLTs= 54K Na= 131 K= 4.3 CL= 93 HCO3= 27 BUN/Cr= 124/3.9 BS= 180 7.49/41/71 PCT 1.06 on Aug 21 Lactate= 3.2 to 2.4 today. Ammonia = 62 CXR: (my interp)- Aug 21: clear bilat, todays shows re-accumulation of R effusion and compressive R basilar atelectasis. IMPRESSION / MAJOR PROBLEMS NOW: 1. Acute resp insuff 2 Pleural effusion ( r/o parapneumonic / pneumonia process) and s/p R Thora. 2. Hypotension / Shock 2 Hypovolemia / antiHTN meds-Diuretics. 3. Metabolic Encephalopathy (Azotemia, Hyperammonianemia), r/o Toxic Drug effect (Lexapro) 4. Hyponatremia 2 Hypovolemia / Diuretics 5. Abdom Wall Hematoma 6. Chronic A fib with controlled VR, PPM. PLAN: 1. More IV fluid challenges for oliguria. 2. Meds remain on HOLD: Lexapro, Lasix, Metolazone, and Losartan. If more lethargic, will need NGT for Lactulose, Rifaximin and enteral nutritional support. 3. Repeat serial Lactates. Check VBG shock panel. Last ECHO from May 2018 reviewed. 4. Platelet count lower, checked coags, check Fib level; r/o DIC. Consider Hematology eval, r/o HUS. 5. Consider pigtail catheter drainage of R chest. 6. Previous Advance Directives rescinded.
[2018-08-23] MEDS ORDERED: Sodium Chloride 0.9% 1,000 ML IV ONE (10:18)
--- NOTE | 2018-08-23 10:20 | CP.PCM.PN ---
Subjective - Date & Time of Evaluation Date of Evaluation: 08/23/18 Time of Evaluation: 10:20 - Subjective Subjective: patient seen and examined at bedside interim events noted appreciate consultants input spoke with family, answered all questions Objective - Vital Signs/Intake and Output Vital Signs (last 24 hours): Temp Pulse Resp BP Pulse Ox 97.9 F 106 H 27 H 98/29 L 93 L 08/23/18 08:00 08/23/18 08:00 08/23/18 08:00 08/23/18 08:00 08/23/18 08:00 Intake and Output: 08/23/18 08/23/18 06:59 18:59 Intake Total 1058 Output Total 155 Balance 903 - Medications Medications: Current Medications Acetaminophen (Tylenol 325mg Tab) 650 mg PO Q6 PRN PRN Reason: Pain 1-10 Albuterol/Ipratropium (Duoneb 3 Mg/0.5 Mg (3 Ml) Ud) 3 ml INH RQ4 PRN PRN Reason: Shortness of Breath Last Admin: 08/22/18 01:00 Dose: 3 ml Albuterol/Ipratropium (Duoneb 3 Mg/0.5 Mg (3 Ml) Ud) 3 ml INH RTID [facility] Last Admin: 08/23/18 07:30 Dose: 3 ml Anastrozole (Arimidex 1 Mg Tab) 1 mg PO DAILY [facility] Last Admin: 08/22/18 09:00 Dose: Not Given Benzocaine/Menthol (Cepacol Sore Throat) 1 malu PO Q2 PRN PRN Reason: Sore Throat Calcium Acetate (Phoslo) 667 mg PO DAILY [facility] Last Admin: 08/22/18 10:00 Dose: Not Given Dextrose (Dextrose 50% Inj) 0 ml IV STAT PRN; Protocol PRN Reason: Hypoglycemia Protocol Dextrose (Glutose 15) 0 gm PO ONCE PRN; Protocol PRN Reason: Hypoglycemia Protocol Dimethicone (Proshield Plus Skin Protectant) 1 applic TOP Q8 [facility] Last Admin: 08/23/18 10:01 Dose: 1 applic Ergocalciferol (Drisdol 50,000 Intl Units Cap) 1 cap PO QWK [facility] Escitalopram Oxalate (Lexapro) 20 mg PO DAILY [facility] Furosemide (Lasix) 40 mg IVP BID [facility] Glucagon (Glucagen Diagnostic Kit) 0 mg IM STAT PRN; Protocol PRN Reason: Hypoglycemia Protocol Guaifenesin/Dextromethorphan (Robitussin Dm) 10 ml PO Q6 PRN PRN Reason: Cough Last Admin: 08/23/18 10:05 Dose: 10 ml Meropenem 500 mg/ Sodium (Chloride) 100 mls @ 100 mls/hr IVPB DAILY [facility]; Protocol Last Admin: 08/23/18 09:58 Dose: 100 mls/hr Levofloxacin/Dextrose (Levaquin 500mg) 500 mg in 100 mls @ 100 mls/hr IVPB Q48H [facility]; Protocol Last Admin: 08/22/18 02:55 Dose: 100 mls/hr Sodium Chloride (Sodium Chloride 0.9%) 1,000 mls @ 84 mls/hr IV .[id number] [facility] Stop: 08/23/18 18:35 Last Admin: 08/22/18 23:21 Dose: 84 mls/hr Sodium Chloride (Sodium Chloride 0.9%) 1,000 mls @ 500 mls/hr IV .Q2H [facility] Stop: 08/23/18 12:17 Insulin Detemir (Levemir) 15 units SC HS [facility] Insulin Human Lispro (Humalog) 10 units SC TIDAC [facility] Last Admin: 08/22/18 12:31 Dose: Not Given Insulin Human Regular (Humulin R) 0 units SC ACCU-CHECK [facility]; Protocol Last Admin: 08/23/18 07:00 Dose: 1 unit Lactulose (Enulose) 20 gm PO TID [facility] Last Admin: 08/23/18 09:54 Dose: 20 gm Lidocaine (Lidoderm) 1 ea TD DAILY [facility] Last Admin: 08/23/18 09:58 Dose: 1 ea Losartan Potassium (Cozaar) 50 mg PO DAILY [facility] Metolazone (Zaroxolyn) 2.5 mg PO DAILY [facility] Rifaximin (Xifaxan) 550 mg PO BID [facility]; Protocol Last Admin: 08/22/18 09:07 Dose: Not Given Sitagliptin Phosphate (Januvia) 25 mg PO DAILY [facility] Last Admin: 08/22/18 09:01 Dose: Not Given Tiotropium [place] (Spiriva) 18 mcg INH DAILY [facility] Last Admin: 08/23/18 10:00 Dose: 18 mcg - Labs Labs: 08/23/18 04:30 08/23/18 04:30 PT 15.0 Seconds (9.8-13.1) H 08/23/18 04:30 INR 1.3 08/23/18 04:30 APTT 32.7 Seconds (25.6-37.1) 08/23/18 04:30 - Additional Findings Additional findings: - Constitutional Appears: Non-toxic, Chronically Ill - Head Exam Head Exam: NORMAL INSPECTION - Eye Exam Eye Exam: Normal appearance - Respiratory Exam Respiratory Exam: Decreased Breath Sounds, NORMAL BREATHING PATTERN - Cardiovascular Exam Cardiovascular Exam: +S1, +S2 - GI/Abdominal Exam GI & Abdominal Exam: Soft Additional comments: brusing unchanged, mild improvement - Extremities Exam Extremities Exam: Normal Inspection - Skin Skin Exam: Normal Color, Warm Assessment and Plan - Assessment and Plan (Free Text) Assessment: dx leukocytosis [place] valvular heart disease chf pleural effusion s/p thoracentesis thrombocytopenia plan available diagnostic data reviewed ID, Nephro, Cardio, Pulmonary following monitor labs monitor vitals health [facility] attendant recommendations appreciated rest of plan as ordered
[2018-08-23 11:10] LABS: VENOUS BLOOD GAS BASE EXCESS 3.5 mmol/L (0.0-2.0); VENOUS BLOOD GAS PCO2 35 mmHg (40-60); VENOUS BLOOD GAS PO2 38 mm/Hg (30-55); VENOUS BLOOD PH 7.49 (7.32-7.43)
[2018-08-23] MEDS ORDERED: DOBUTamine 500mg/250ml D5W 500 MG/250 ML BAG ONE (11:44)
[2018-08-23] MEDS ORDERED: DOBUTamine 500mg/250ml D5W 500 MG/250 ML BAG IV SCH (11:45)
[2018-08-23] MEDS ORDERED: Sodium Chloride 0.9% 500 ML IV ONE (12:24)
--- NOTE | 2018-08-23 12:35 | CP.PCM.PN ---
Subjective - Date & Time of Evaluation Date of Evaluation: 08/23/18 Time of Evaluation: 12:15 - Subjective Subjective: patient seen in ICU. daughter is at the bedside. Extensive discussion regarding medical condition with all questions answered. Objective - Vital Signs/Intake and Output Vital Signs (last 24 hours): Temp Pulse Resp BP Pulse Ox 97.2 F L 109 H 22 119/29 L 94 L 08/23/18 12:00 08/23/18 12:00 08/23/18 12:00 08/23/18 12:00 08/23/18 12:00 Intake and Output: 08/23/18 08/23/18 06:59 18:59 Intake Total 1058 536 Output Total 155 50 Balance 903 486 - Medications Medications: Current Medications Acetaminophen (Tylenol 325mg Tab) 650 mg PO Q6 PRN PRN Reason: Pain 1-10 Albuterol/Ipratropium (Duoneb 3 Mg/0.5 Mg (3 Ml) Ud) 3 ml INH RQ4 PRN PRN Reason: Shortness of Breath Last Admin: 08/22/18 01:00 Dose: 3 ml Albuterol/Ipratropium (Duoneb 3 Mg/0.5 Mg (3 Ml) Ud) 3 ml INH RTID [facility] Last Admin: 08/23/18 07:30 Dose: 3 ml Anastrozole (Arimidex 1 Mg Tab) 1 mg PO DAILY [facility] Last Admin: 08/22/18 09:00 Dose: Not Given Benzocaine/Menthol (Cepacol Sore Throat) 1 malu PO Q2 PRN PRN Reason: Sore Throat Calcium Acetate (Phoslo) 667 mg PO DAILY [facility] Last Admin: 08/22/18 10:00 Dose: Not Given Dextrose (Dextrose 50% Inj) 0 ml IV STAT PRN; Protocol PRN Reason: Hypoglycemia Protocol Dextrose (Glutose 15) 0 gm PO ONCE PRN; Protocol PRN Reason: Hypoglycemia Protocol Dimethicone (Proshield Plus Skin Protectant) 1 applic TOP Q8 [facility] Last Admin: 08/23/18 10:01 Dose: 1 applic Ergocalciferol (Drisdol 50,000 Intl Units Cap) 1 cap PO QWK [facility] Escitalopram Oxalate (Lexapro) 20 mg PO DAILY [facility] Furosemide (Lasix) 40 mg IVP BID [facility] Glucagon (Glucagen Diagnostic Kit) 0 mg IM STAT PRN; Protocol PRN Reason: Hypoglycemia Protocol Guaifenesin/Dextromethorphan (Robitussin Dm) 10 ml PO Q6 PRN PRN Reason: Cough Last Admin: 08/23/18 10:05 Dose: 10 ml Meropenem 500 mg/ Sodium (Chloride) 100 mls @ 100 mls/hr IVPB DAILY [facility]; Protocol Last Admin: 08/23/18 09:58 Dose: 100 mls/hr Levofloxacin/Dextrose (Levaquin 500mg) 500 mg in 100 mls @ 100 mls/hr IVPB Q48H [facility]; Protocol Last Admin: 08/22/18 02:55 Dose: 100 mls/hr Sodium Chloride (Sodium Chloride 0.9%) 1,000 mls @ 84 mls/hr IV .[id number] [facility] Stop: 08/23/18 18:35 Last Admin: 08/22/18 23:21 Dose: 84 mls/hr Sodium Chloride (Sodium Chloride 0.9%) 500 mls @ 500 mls/hr IV .Q1H ONE Stop: 08/23/18 13:23 Dobutamine HCl/Dextrose (Dobutamine/Dextrose 5% 500mg/250ml) 500 mg in 250 mls @ 4.388 mls/hr IV .Q24H [facility] Insulin Detemir (Levemir) 15 units SC HS [facility] Insulin Human Lispro (Humalog) 10 units SC TIDAC [facility] Last Admin: 08/22/18 12:31 Dose: Not Given Insulin Human Regular (Humulin R) 0 units SC ACCU-CHECK [facility]; Protocol Last Admin: 08/23/18 07:00 Dose: 1 unit Lactulose (Enulose) 20 gm PO TID [facility] Last Admin: 08/23/18 09:54 Dose: 20 gm Lidocaine (Lidoderm) 1 ea TD DAILY [facility] Last Admin: 08/23/18 09:58 Dose: 1 ea Losartan Potassium (Cozaar) 50 mg PO DAILY [facility] Metolazone (Zaroxolyn) 2.5 mg PO DAILY [facility] Rifaximin (Xifaxan) 550 mg PO BID [facility]; Protocol Last Admin: 08/22/18 09:07 Dose: Not Given Sitagliptin Phosphate (Januvia) 25 mg PO DAILY [facility] Last Admin: 08/22/18 09:01 Dose: Not Given Tiotropium [place] (Spiriva) 18 mcg INH DAILY [facility] Last Admin: 08/23/18 10:00 Dose: 18 mcg - Labs Labs: 08/23/18 04:30 08/23/18 04:30 PT 15.0 Seconds (9.8-13.1) H 08/23/18 04:30 INR 1.3 08/23/18 04:30 APTT 32.7 Seconds (25.6-37.1) 08/23/18 04:30 - Constitutional Appears: Toxic - Head Exam Head Exam: NORMAL INSPECTION - Eye Exam Eye Exam: Normal appearance - ENT Exam ENT Exam: Mucous Membranes Dry - Neck Exam Neck Exam: Full ROM - Respiratory Exam Respiratory Exam: Decreased Breath Sounds - Cardiovascular Exam Cardiovascular Exam: Tachycardia, Irregular Rhythm - GI/Abdominal Exam GI & Abdominal Exam: Normal Bowel Sounds - Rectal Exam Rectal Exam: Deferred - Extremities Exam Extremities Exam: absent: Pedal Edema - Back Exam Back Exam: NORMAL INSPECTION - Skin Skin Exam: Normal Color Assessment and Plan (1) Acute diastolic heart failure due to valvular disease Assessment & Plan: currently on dobutamine. recommend decrease to 2.5mcg. Status: Acute (2) Atrial fibrillation Assessment & Plan: tachcyardia, likely due to dobutamine. Status: Acute (3) Mitral valve regurgitation Assessment & Plan: cosnservative therapy. not a candidate for invasive procedure Status: Chronic
--- NOTE | 2018-08-23 12:42 | CP.PCM.PN ---
Subjective - Date & Time of Evaluation Date of Evaluation: 08/23/18 Time of Evaluation: 12:41 - Subjective Subjective: pt is seen and examined, follow up consult is dictated #[id number] c/w gentle iv hydration if tolerates, other mcclure restrict to 1lit/day if pt's family agrees will plan for hd , consider sakshi cath / perma cath placement by IR if pt 's family agrees monitor i/o's over all prognosis is poor Objective - Vital Signs/Intake and Output Vital Signs (last 24 hours): Temp Pulse Resp BP Pulse Ox 97.2 F L 109 H 22 119/29 L 94 L 08/23/18 12:00 08/23/18 12:00 08/23/18 12:00 08/23/18 12:00 08/23/18 12:00 Intake and Output: 08/23/18 08/23/18 06:59 18:59 Intake Total 1058 536 Output Total 155 50 Balance 903 486 - Medications Medications: Current Medications Acetaminophen (Tylenol 325mg Tab) 650 mg PO Q6 PRN PRN Reason: Pain 1-10 Albuterol/Ipratropium (Duoneb 3 Mg/0.5 Mg (3 Ml) Ud) 3 ml INH RQ4 PRN PRN Reason: Shortness of Breath Last Admin: 08/22/18 01:00 Dose: 3 ml Albuterol/Ipratropium (Duoneb 3 Mg/0.5 Mg (3 Ml) Ud) 3 ml INH RTID [facility] Last Admin: 08/23/18 07:30 Dose: 3 ml Anastrozole (Arimidex 1 Mg Tab) 1 mg PO DAILY [facility] Last Admin: 08/22/18 09:00 Dose: Not Given Benzocaine/Menthol (Cepacol Sore Throat) 1 malu PO Q2 PRN PRN Reason: Sore Throat Calcium Acetate (Phoslo) 667 mg PO DAILY [facility] Last Admin: 08/22/18 10:00 Dose: Not Given Dextrose (Dextrose 50% Inj) 0 ml IV STAT PRN; Protocol PRN Reason: Hypoglycemia Protocol Dextrose (Glutose 15) 0 gm PO ONCE PRN; Protocol PRN Reason: Hypoglycemia Protocol Dimethicone (Proshield Plus Skin Protectant) 1 applic TOP Q8 [facility] Last Admin: 08/23/18 10:01 Dose: 1 applic Ergocalciferol (Drisdol 50,000 Intl Units Cap) 1 cap PO QWK [facility] Escitalopram Oxalate (Lexapro) 20 mg PO DAILY [facility] Furosemide (Lasix) 40 mg IVP BID [facility] Glucagon (Glucagen Diagnostic Kit) 0 mg IM STAT PRN; Protocol PRN Reason: Hypoglycemia Protocol Guaifenesin/Dextromethorphan (Robitussin Dm) 10 ml PO Q6 PRN PRN Reason: Cough Last Admin: 08/23/18 10:05 Dose: 10 ml Meropenem 500 mg/ Sodium (Chloride) 100 mls @ 100 mls/hr IVPB DAILY [facility]; Protocol Last Admin: 08/23/18 09:58 Dose: 100 mls/hr Levofloxacin/Dextrose (Levaquin 500mg) 500 mg in 100 mls @ 100 mls/hr IVPB Q48H [facility]; Protocol Last Admin: 08/22/18 02:55 Dose: 100 mls/hr Sodium Chloride (Sodium Chloride 0.9%) 1,000 mls @ 84 mls/hr IV .[id number] [facility] Stop: 08/23/18 18:35 Last Admin: 08/22/18 23:21 Dose: 84 mls/hr Sodium Chloride (Sodium Chloride 0.9%) 500 mls @ 500 mls/hr IV .Q1H ONE Stop: 08/23/18 13:23 Dobutamine HCl/Dextrose (Dobutamine/Dextrose 5% 500mg/250ml) 500 mg in 250 mls @ 4.388 mls/hr IV .Q24H [facility] Insulin Detemir (Levemir) 15 units SC HS [facility] Insulin Human Lispro (Humalog) 10 units SC TIDAC [facility] Last Admin: 08/22/18 12:31 Dose: Not Given Insulin Human Regular (Humulin R) 0 units SC ACCU-CHECK [facility]; Protocol Last Admin: 08/23/18 07:00 Dose: 1 unit Lactulose (Enulose) 20 gm PO TID [facility] Last Admin: 08/23/18 09:54 Dose: 20 gm Lidocaine (Lidoderm) 1 ea TD DAILY [facility] Last Admin: 08/23/18 09:58 Dose: 1 ea Losartan Potassium (Cozaar) 50 mg PO DAILY [facility] Metolazone (Zaroxolyn) 2.5 mg PO DAILY [facility] Rifaximin (Xifaxan) 550 mg PO BID [facility]; Protocol Last Admin: 08/22/18 09:07 Dose: Not Given Sitagliptin Phosphate (Januvia) 25 mg PO DAILY [facility] Last Admin: 08/22/18 09:01 Dose: Not Given Tiotropium [place] (Spiriva) 18 mcg INH DAILY [facility] Last Admin: 08/23/18 10:00 Dose: 18 mcg - Labs Labs: 08/23/18 04:30 08/23/18 04:30 PT 15.0 Seconds (9.8-13.1) H 08/23/18 04:30 INR 1.3 08/23/18 04:30 APTT 32.7 Seconds (25.6-37.1) 08/23/18 04:30
[2018-08-23] MEDS: DOBUTamine 500mg/250ml D5W 500 MG/250 ML BAG IV SCH (13:11)
[2018-08-23 14:13] LABS: VENOUS BLOOD GAS BASE EXCESS 1.1 mmol/L (0.0-2.0); VENOUS BLOOD GAS PCO2 37 mmHg (40-60); VENOUS BLOOD GAS PO2 35 mm/Hg (30-55); VENOUS BLOOD PH 7.44 (7.32-7.43)
[2018-08-23] MEDS: Phenol 1.4% Throat Spray MT PRN (15:59)
--- NOTE | 2018-08-23 16:58 | CP.PCM.PN ---
Subjective - Date & Time of Evaluation Date of Evaluation: 08/23/18 Time of Evaluation: 08:00 - Subjective Subjective: 82 year old female with chronic atrial fibrillation, PPM, HTN, mitral regurgitation , cirrhosis presents with dyspnea and is being treated for CHF and Pneumonia Developed hypotension after thoracentesis Now requiring dobutamine and HD for [facility] All cultures have been negative thus far ansd WBC trending down Unclear how much of the multiorgansystem failure is due to sepsis/ infection Objective - Vital Signs/Intake and Output Vital Signs (last 24 hours): Temp Pulse Resp BP Pulse Ox 96.7 F L 101 H 13 99/34 L 98 08/23/18 16:20 08/23/18 16:20 08/23/18 16:20 08/23/18 16:20 08/23/18 16:20 Intake and Output: 08/23/18 08/23/18 06:59 18:59 Intake Total 1058 2157 Output Total 155 115 Balance 903 2042 - Medications Medications: Current Medications Acetaminophen (Tylenol 325mg Tab) 650 mg PO Q6 PRN PRN Reason: Pain 1-10 Albuterol/Ipratropium (Duoneb 3 Mg/0.5 Mg (3 Ml) Ud) 3 ml INH RQ4 PRN PRN Reason: Shortness of Breath Last Admin: 08/22/18 01:00 Dose: 3 ml Albuterol/Ipratropium (Duoneb 3 Mg/0.5 Mg (3 Ml) Ud) 3 ml INH RTID [facility] Last Admin: 08/23/18 13:41 Dose: 3 ml Anastrozole (Arimidex 1 Mg Tab) 1 mg PO DAILY [facility] Last Admin: 08/22/18 09:00 Dose: Not Given Benzocaine/Menthol (Cepacol Sore Throat) 1 malu PO Q2 PRN PRN Reason: Sore Throat Calcium Acetate (Phoslo) 667 mg PO DAILY [facility] Last Admin: 08/22/18 10:00 Dose: Not Given Dextrose (Dextrose 50% Inj) 0 ml IV STAT PRN; Protocol PRN Reason: Hypoglycemia Protocol Dextrose (Glutose 15) 0 gm PO ONCE PRN; Protocol PRN Reason: Hypoglycemia Protocol Dimethicone (Proshield Plus Skin Protectant) 1 applic TOP Q8 [facility] Last Admin: 08/23/18 10:01 Dose: 1 applic Ergocalciferol (Drisdol 50,000 Intl Units Cap) 1 cap PO QWK [facility] Escitalopram Oxalate (Lexapro) 20 mg PO DAILY [facility] Furosemide (Lasix) 40 mg IVP BID [facility] Glucagon (Glucagen Diagnostic Kit) 0 mg IM STAT PRN; Protocol PRN Reason: Hypoglycemia Protocol Guaifenesin/Dextromethorphan (Robitussin Dm) 10 ml PO Q6 PRN PRN Reason: Cough Last Admin: 08/23/18 10:05 Dose: 10 ml Meropenem 500 mg/ Sodium (Chloride) 100 mls @ 100 mls/hr IVPB DAILY [facility]; Protocol Last Admin: 08/23/18 09:58 Dose: 100 mls/hr Levofloxacin/Dextrose (Levaquin 500mg) 500 mg in 100 mls @ 100 mls/hr IVPB Q48H [facility]; Protocol Last Admin: 08/22/18 02:55 Dose: 100 mls/hr Sodium Chloride (Sodium Chloride 0.9%) 1,000 mls @ 84 mls/hr IV .[id number] [facility] Stop: 08/23/18 18:35 Last Admin: 08/22/18 23:21 Dose: 84 mls/hr Dobutamine HCl/Dextrose (Dobutamine/Dextrose 5% 500mg/250ml) 500 mg in 250 mls @ 4.388 mls/hr IV .Q24H [facility] Last Admin: 08/23/18 13:11 Dose: 4.388 mls/hr Insulin Detemir (Levemir) 15 units SC HS [facility] Insulin Human Lispro (Humalog) 10 units SC TIDAC [facility] Last Admin: 08/22/18 12:31 Dose: Not Given Insulin Human Regular (Humulin R) 0 units SC ACCU-CHECK [facility]; Protocol Last Admin: 08/23/18 13:13 Dose: 1 unit Lactulose (Enulose) 20 gm PO TID [facility] Last Admin: 08/23/18 13:12 Dose: 20 gm Lidocaine (Lidoderm) 1 ea TD DAILY [facility] Last Admin: 08/23/18 09:58 Dose: 1 ea Losartan Potassium (Cozaar) 50 mg PO DAILY [facility] Metolazone (Zaroxolyn) 2.5 mg PO DAILY [facility] Phenol/Menthol (Phenaseptic 1.4% Throat [place]) 1 spry MT Q2 PRN PRN Reason: Pain, Mild (1-3) Last Admin: 08/23/18 15:59 Dose: 1 spray Rifaximin (Xifaxan) 550 mg PO BID [facility]; Protocol Last Admin: 08/22/18 09:07 Dose: Not Given Sitagliptin Phosphate (Januvia) 25 mg PO DAILY [facility] Last Admin: 08/22/18 09:01 Dose: Not Given Tiotropium [place] (Spiriva) 18 mcg INH DAILY [facility] Last Admin: 08/23/18 10:00 Dose: 18 mcg - Labs Labs: 08/23/18 04:30 08/23/18 04:30 PT 15.0 Seconds (9.8-13.1) H 08/23/18 04:30 INR 1.3 08/23/18 04:30 APTT 32.7 Seconds (25.6-37.1) 08/23/18 04:30 - Constitutional Appears: Non-toxic, Confused, Cachectic, Chronically Ill - Head Exam Head Exam: ATRAUMATIC, NORMOCEPHALIC - Eye Exam Eye Exam: absent: Scleral icterus - ENT Exam ENT Exam: Mucous Membranes Dry, Normal External Ear Exam - Neck Exam Neck Exam: absent: Lymphadenopathy - Respiratory Exam Respiratory Exam: Decreased Breath Sounds, Prolonged Expiratory Phase, Rhonchi - Cardiovascular Exam Cardiovascular Exam: REGULAR RHYTHM, +S1, +S2 - GI/Abdominal Exam GI & Abdominal Exam: Distended, Soft. absent: Tenderness - Rectal Exam Rectal Exam: Deferred - Exam Exam: NORMAL INSPECTION - Extremities Exam Extremities Exam: Pedal Edema - Back Exam Back Exam: absent: CVA tenderness (L), CVA tenderness (R) - Neurological Exam Neurological Exam: Altered - Psychiatric Exam Psychiatric exam: Depressed - Skin Skin Exam: Dry Assessment and Plan (1) CHF (congestive heart failure) Status: Acute (2) HCAP (healthcare-associated pneumonia) Status: Acute (3) Pleural effusion Status: Acute (4) Acute diastolic heart failure due to valvular disease Status: Acute (5) Acute dyspnea Status: Acute (6) Acute renal failure Status: Acute - Assessment and Plan (Free Text) Assessment: 82 year old female with chronic atrial fibrillation, PPM, HTN, mitral r egurgitation , cirrhosis presents with dyspnea and is being treated for CHF and Pneumonia Developed hypotension after thoracentesis Now requiring dobutamine and HD for [facility] All cultures have been negative thus far ansd WBC trending down Unclear how much of the multiorgansystem failure is due to sepsis/ infection
--- NOTE | 2018-08-23 20:25 | CP.PCM.CON ---
History of Present Illness - History of Present Illness History of Present Illness: 82 year old female with a history of afib, COPD, CHF, DM, HL, cirrhosis, presenting with AMS, with progressive thrombocytopenia and anemia. The patient is confused and I am unable to obtain a history from the patient. Review of her blood work shows thrombocytopenia going back since 2013. She does have ecchymosis over her extremities. Past medical, surgical, family, social history cannot be obtained. Allergies: Metoclopramide Review of systems cannot be obtained. Past Patient History - Tetanus Immunizations Tetanus Immunization: Unknown - Past Medical History & Family History Past Medical History?: Yes - Past Social History Smoking Status: Never Smoked Chewing Tobacco Use: No Cigar Use: No Alcohol: None Drugs: Denies Home Situation {Lives}: With Family - CARDIAC Hx Atrial Fibrillation: Yes Hx Cardia Arrhythmia: Yes (A-FIB) Hx Congestive Heart Failure: Yes Hx Hypercholesterolemia: Yes Hx Hypertension: Yes Hx Pacemaker: Yes - PULMONARY Hx Asthma: Yes Hx Chronic Obstructive Pulmonary Disease (COPD): Yes Hx Pneumonia: Yes - NEUROLOGICAL Hx Neurological Disorder: No - HEENT Hx HEENT Problems: No - RENAL Hx Chronic Kidney Disease: Yes - ENDOCRINE/METABOLIC Hx Hypothyroidism: Yes - HEMATOLOGICAL/ONCOLOGICAL Hx Anemia: Yes Hx Human Immunodeficiency Virus (HIV): No - INTEGUMENTARY Hx Dermatological Problems: No - MUSCULOSKELETAL/RHEUMATOLOGICAL Hx Arthritis: Yes Hx Falls: No - GASTROINTESTINAL Hx Gastrointestinal Disorders: Yes Hx Liver Failure: Yes - GENITOURINARY/GYNECOLOGICAL Hx Genitourinary Disorders: No - PSYCHIATRIC Hx Depression: Yes Hx Substance Use: No - SURGICAL HISTORY Hx Surgeries: Yes Hx Cataract Extraction: Yes (BILAT.) Hx Cardiac Catheterization: Yes Other/Comment: HX: CYSTO WITH STENT PLACED. HX: RECONSTRUCTION OF VAGINA. HX: CYSTOSCOPY RIGHT URETERAL STENT EXCHANGE(01/29/18) - ANESTHESIA Hx Anesthesia: Yes Hx Anesthesia Reactions: No Hx Malignant Hyperthermia: No Meds Allergies/Adverse Reactions: Allergies Allergy/AdvReac Type Severity Reaction Status Date / Time metoclopramide [From Reglan] Allergy ANAPHYLAXIS Verified 08/03/18 23:19 - Medications Medications: Current Medications Acetaminophen (Tylenol 325mg Tab) 650 mg PO Q6 PRN PRN Reason: Pain 1-10 Albuterol/Ipratropium (Duoneb 3 Mg/0.5 Mg (3 Ml) Ud) 3 ml INH RQ4 PRN PRN Reason: Shortness of Breath Last Admin: 08/22/18 01:00 Dose: 3 ml Albuterol/Ipratropium (Duoneb 3 Mg/0.5 Mg (3 Ml) Ud) 3 ml INH RTID KATEY Last Admin: 08/23/18 19:19 Dose: 3 ml Anastrozole (Arimidex 1 Mg Tab) 1 mg PO DAILY KATEY Last Admin: 08/22/18 09:00 Dose: Not Given Benzocaine/Menthol (Cepacol Sore Throat) 1 malu PO Q2 PRN PRN Reason: Sore Throat Calcium Acetate (Phoslo) 667 mg PO DAILY KATEY Last Admin: 08/22/18 10:00 Dose: Not Given Dextrose (Dextrose 50% Inj) 0 ml IV STAT PRN; Protocol PRN Reason: Hypoglycemia Protocol Dextrose (Glutose 15) 0 gm PO ONCE PRN; Protocol PRN Reason: Hypoglycemia Protocol Dimethicone (Proshield Plus Skin Protectant) 1 applic TOP Q8 KATEY Last Admin: 08/23/18 17:57 Dose: 1 applic Ergocalciferol (Drisdol 50,000 Intl Units Cap) 1 cap PO QWK KATEY Escitalopram Oxalate (Lexapro) 20 mg PO DAILY KATEY Furosemide (Lasix) 40 mg IVP BID KATEY Glucagon (Glucagen Diagnostic Kit) 0 mg IM STAT PRN; Protocol PRN Reason: Hypoglycemia Protocol Guaifenesin/Dextromethorphan (Robitussin Dm) 10 ml PO Q6 PRN PRN Reason: Cough Last Admin: 08/23/18 10:05 Dose: 10 ml Meropenem 500 mg/ Sodium (Chloride) 100 mls @ 100 mls/hr IVPB DAILY KATEY; Protocol Last Admin: 08/23/18 09:58 Dose: 100 mls/hr Levofloxacin/Dextrose (Levaquin 500mg) 500 mg in 100 mls @ 100 mls/hr IVPB Q48H KATEY; Protocol Last Admin: 08/22/18 02:55 Dose: 100 mls/hr Dobutamine HCl/Dextrose (Dobutamine/Dextrose 5% 500mg/250ml) 500 mg in 250 mls @ 4.388 mls/hr IV .Q24H KATEY Last Admin: 08/23/18 13:11 Dose: 4.388 mls/hr Insulin Detemir (Levemir) 15 units SC [facility] Insulin Human Lispro (Humalog) 10 units SC TIDAC [facility] Last Admin: 08/22/18 12:31 Dose: Not Given Insulin Human Regular (Humulin R) 0 units SC ACCU-CHECK [facility]; Protocol Last Admin: 08/23/18 17:56 Dose: 2 unit Lactulose (Enulose) 20 gm PO TID [facility] Last Admin: 08/23/18 17:55 Dose: Not Given Lidocaine (Lidoderm) 1 ea TD DAILY [facility] Last Admin: 08/23/18 09:58 Dose: 1 ea Losartan Potassium (Cozaar) 50 mg PO DAILY [facility] Metolazone (Zaroxolyn) 2.5 mg PO DAILY [facility] Phenol/Menthol (Phenaseptic 1.4% Throat [place]oussard) 1 spry MT Q2 PRN PRN Reason: Pain, Mild (1-3) Last Admin: 08/23/18 15:59 Dose: 1 spray Rifaximin (Xifaxan) 550 mg PO BID [facility]; Protocol Last Admin: 08/22/18 09:07 Dose: Not Given Sitagliptin Phosphate (Januvia) 25 mg PO DAILY [facility] Last Admin: 08/22/18 09:01 Dose: Not Given Tiotropium [place] (Spiriva) 18 mcg INH DAILY [facility] Last Admin: 08/23/18 10:00 Dose: 18 mcg Physical Exam - Head Exam Head Exam: ATRAUMATIC - Eye Exam Eye Exam: Normal appearance - ENT Exam ENT Exam: Mucous Membranes Dry - Respiratory Exam Respiratory Exam: NORMAL BREATHING PATTERN - Cardiovascular Exam Cardiovascular Exam: +S1, +S2 - GI/Abdominal Exam GI & Abdominal Exam: Normal Bowel Sounds - Extremities Exam Extremities exam: Positive for: pedal edema - Neurological Exam Neurological exam: Altered - Psychiatric Exam Psychiatric exam: Flat Affect - Skin Skin Exam: Warm Results - Vital Signs Recent Vital Signs: Last Vital Signs Temp 96.7 F L 08/23/18 16:20 Pulse 94 H 08/23/18 19:19 Resp 13 08/23/18 16:20 BP 99/34 L 08/23/18 16:20 Pulse Ox 98 08/23/18 16:20 - Labs Result Diagrams: 08/28/18 05:45 08/28/18 05:45 Labs: Laboratory Results - last 24 hr 08/21/18 08/22/18 08/22/18 13:30 20:25 21:30 WBC RBC Hgb Hct MCV MCH MCHC RDW Plt Count PT INR APTT pCO2 41 pO2 71 L HCO3 30.5 H ABG pH 7.49 H ABG Total CO2 32.5 H ABG O2 Saturation 97.6 ABG O2 Content 15.1 ABG Base Excess 7.2 H ABG Hemoglobin 11.4 L ABG Carboxyhemoglobin 2.6 H POC ABG HHb (Measured) 2.3 ABG Methemoglobin 1.4 ABG O2 Capacity 15.5 L Andres Test Yes VBG pH VBG pCO2 VBG HCO3 VBG Total CO2 VBG O2 Sat (Calc) VBG Base Excess VBG Potassium A-a O2 Difference 134.0 Hgb O2 Saturation 93.7 L Glucose Lactate Vent Mode Nasal cannula FiO2 36.0 Sodium Potassium Chloride Carbon Dioxide Anion Gap BUN Creatinine Est GFR ( Amer) Est GFR (Non-Af Amer) POC Glucose (mg/dL) 120 H Random Glucose Serum Osmolality Lactic Acid Calcium Phosphorus Magnesium Total Bilirubin AST ALT Alkaline Phosphatase Ammonia Total Protein Albumin Globulin Albumin/Globulin Ratio Procalcitonin Venous Blood Potassium Urine Color Urine Clarity Urine pH Ur Specific [place] Urine Protein Urine Glucose (UA) Urine Ketones Urine Blood Urine Nitrate Urine Bilirubin Urine Urobilinogen Ur Leukocyte Esterase Urine RBC (Auto) Urine Microscopic WBC Ur Squamous Epith Cells Urine Bacteria Hyaline Casts Urine Osmolality Ur Random Creatinine Ur Random Sodium Ur Random Potassium Pleural Lipase 8.0 08/23/18 08/23/18 08/23/18 02:10 04:30 04:30 WBC RBC Hgb Hct MCV MCH MCHC RDW Plt Count PT INR APTT pCO2 pO2 HCO3 ABG pH ABG Total CO2 ABG O2 Saturation ABG O2 Content ABG Base Excess ABG Hemoglobin ABG Carboxyhemoglobin POC ABG HHb (Measured) ABG Methemoglobin ABG O2 Capacity Andres Test VBG pH VBG pCO2 VBG HCO3 VBG Total CO2 VBG O2 Sat (Calc) VBG Base Excess VBG Potassium A-a O2 Difference Hgb O2 Saturation Glucose Lactate Vent Mode FiO2 Sodium Potassium Chloride Carbon Dioxide Anion Gap BUN Creatinine Est GFR ( Amer) Est GFR (Non-Af Amer) POC Glucose (mg/dL) Random Glucose Serum Osmolality Lactic Acid 2.4 H Calcium Phosphorus Magnesium Total Bilirubin AST ALT Alkaline Phosphatase Ammonia 62 H Total Protein Albumin Globulin Albumin/Globulin Ratio Procalcitonin Venous Blood Potassium Urine Color Yellow Urine Clarity Cloudy Urine pH 5.0 Ur Specific [place] 1.015 Urine Protein 30 Urine Glucose (UA) Neg Urine Ketones Negative Urine Blood Moderate Urine Nitrate Negative Urine Bilirubin Negative Urine Urobilinogen 0.2-1.0 Ur Leukocyte Esterase Neg Urine RBC (Auto) 2 Urine Microscopic WBC 2 Ur Squamous Epith Cells < 1 Urine Bacteria Rare Hyaline Casts 3-5 H Urine Osmolality Ur Random Creatinine Ur Random Sodium Ur Random Potassium Pleural Lipase 08/23/18 08/23/18 08/23/18 04:30 04:30 04:30 WBC 18.8 H RBC 3.37 L Hgb 11.2 L Hct 33.2 L MCV 98.6 MCH 33.2 H MCHC 33.7 RDW 14.5 Plt Count 54 L PT 15.0 H INR 1.3 APTT 32.7 pCO2 pO2 HCO3 ABG pH ABG Total CO2 ABG O2 Saturation ABG O2 Content ABG Base Excess ABG Hemoglobin ABG Carboxyhemoglobin POC ABG HHb (Measured) ABG Methemoglobin ABG O2 Capacity Andres Test VBG pH VBG pCO2 VBG HCO3 VBG Total CO2 VBG O2 Sat (Calc) VBG Base Excess VBG Potassium A-a O2 Difference Hgb O2 Saturation Glucose Lactate Vent Mode FiO2 Sodium 131 L Potassium 4.3 Chloride 93 L Carbon Dioxide 27 Anion Gap 15 BUN 124 H* Creatinine 3.9 H Est GFR ( Amer) 13 Est GFR (Non-Af Amer) 11 POC Glucose (mg/dL) Random Glucose 180 H Serum Osmolality Lactic Acid Calcium 9.6 Phosphorus 6.0 H Magnesium 2.3 Total Bilirubin 1.9 H AST 41 H ALT 56 H Alkaline Phosphatase 79 Ammonia Total Protein 5.4 L Albumin 2.3 L Globulin 3.1 Albumin/Globulin Ratio 0.7 L Procalcitonin Venous Blood Potassium Urine Color Urine Clarity Urine pH Ur Specific [place] Urine Protein Urine Glucose (UA) Urine Ketones Urine Blood Urine Nitrate Urine Bilirubin Urine Urobilinogen Ur Leukocyte Esterase Urine RBC (Auto) Urine Microscopic WBC Ur Squamous Epith Cells Urine Bacteria Hyaline Casts Urine Osmolality Ur Random Creatinine Ur Random Sodium Ur Random Potassium Pleural Lipase 08/23/18 08/23/18 08/23/18 04:38 06:16 06:16 WBC RBC Hgb Hct MCV MCH MCHC RDW Plt Count PT INR APTT pCO2 pO2 HCO3 ABG pH ABG Total CO2 ABG O2 Saturation ABG O2 Content ABG Base Excess ABG Hemoglobin ABG Carboxyhemoglobin POC ABG HHb (Measured) ABG Methemoglobin ABG O2 Capacity Andres Test VBG pH VBG pCO2 VBG HCO3 VBG Total CO2 VBG O2 Sat (Calc) VBG Base Excess VBG Potassium A-a O2 Difference Hgb O2 Saturation Glucose Lactate Vent Mode FiO2 Sodium Potassium Chloride Carbon Dioxide Anion Gap BUN Creatinine Est GFR ( Amer) Est GFR (Non-Af Amer) POC Glucose (mg/dL) 155 H Random Glucose Serum Osmolality Lactic Acid Calcium Phosphorus Magnesium Total Bilirubin AST ALT Alkaline Phosphatase Ammonia Total Protein Albumin Globulin Albumin/Globulin Ratio Procalcitonin Venous Blood Potassium Urine Color Urine Clarity Urine pH Ur Specific [place] Urine Protein Urine Glucose (UA) Urine Ketones Urine Blood Urine Nitrate Urine Bilirubin Urine Urobilinogen Ur Leukocyte Esterase Urine RBC (Auto) Urine Microscopic WBC Ur Squamous Epith Cells Urine Bacteria Hyaline Casts Urine Osmolality 353 Ur Random Creatinine 86.4 Ur Random Sodium 6 Ur Random Potassium 47.2 Pleural Lipase 08/23/18 08/23/18 08/23/18 09:57 09:57 11:08 WBC RBC Hgb Hct MCV MCH MCHC RDW Plt Count PT INR APTT pCO2 pO2 38 HCO3 ABG pH ABG Total CO2 ABG O2 Saturation ABG O2 Content ABG Base Excess ABG Hemoglobin ABG Carboxyhemoglobin POC ABG HHb (Measured) ABG Methemoglobin ABG O2 Capacity Andres Test VBG pH 7.49 H VBG pCO2 35 L VBG HCO3 27.1 VBG Total CO2 27.8 VBG O2 Sat (Calc) 79.5 H VBG Base Excess 3.5 H VBG Potassium 3.9 A-a O2 Difference Hgb O2 Saturation Glucose 228 H Lactate 3.5 H Vent Mode FiO2 21.0 Sodium 127.0 L Potassium Chloride 98.0 Carbon Dioxide Anion Gap BUN Creatinine Est GFR ( Amer) Est GFR (Non-Af Amer) POC Glucose (mg/dL) Random Glucose Serum Osmolality 327 H Lactic Acid Calcium Phosphorus Magnesium Total Bilirubin AST ALT Alkaline Phosphatase Ammonia Total Protein Albumin Globulin Albumin/Globulin Ratio Procalcitonin 1.47 H Venous Blood Potassium 3.9 Urine Color Urine Clarity Urine pH Ur Specific [place] Urine Protein Urine Glucose (UA) Urine Ketones Urine Blood Urine Nitrate Urine Bilirubin Urine Urobilinogen Ur Leukocyte Esterase Urine RBC (Auto) Urine Microscopic WBC Ur Squamous Epith Cells Urine Bacteria Hyaline Casts Urine Osmolality Ur Random Creatinine Ur Random Sodium Ur Random Potassium Pleural Lipase 08/23/18 08/23/18 08/23/18 11:17 14:11 16:37 WBC RBC Hgb Hct MCV MCH MCHC RDW Plt Count PT INR APTT pCO2 pO2 35 HCO3 ABG pH ABG Total CO2 ABG O2 Saturation ABG O2 Content ABG Base Excess ABG Hemoglobin ABG Carboxyhemoglobin POC ABG HHb (Measured) ABG Methemoglobin ABG O2 Capacity Andres Test VBG pH 7.44 H VBG pCO2 37 L VBG HCO3 25.0 VBG Total CO2 26.2 VBG O2 Sat (Calc) 72.1 H VBG Base Excess 1.1 VBG Potassium 3.8 A-a O2 Difference Hgb O2 Saturation Glucose 258 H Lactate 3.1 H Vent Mode FiO2 21.0 Sodium 131.0 L Potassium Chloride 100.0 Carbon Dioxide Anion Gap BUN Creatinine Est GFR ( Amer) Est GFR (Non-Af Amer) POC Glucose (mg/dL) 190 H 222 H Random Glucose Serum Osmolality Lactic Acid Calcium Phosphorus Magnesium Total Bilirubin AST ALT Alkaline Phosphatase Ammonia Total Protein Albumin Globulin Albumin/Globulin Ratio Procalcitonin Venous Blood Potassium 3.8 Urine Color Urine Clarity Urine pH Ur Specific [place] Urine Protein Urine Glucose (UA) Urine Ketones Urine Blood Urine Nitrate Urine Bilirubin Urine Urobilinogen Ur Leukocyte Esterase Urine RBC (Auto) Urine Microscopic WBC Ur Squamous Epith Cells Urine Bacteria Hyaline Casts Urine Osmolality Ur Random Creatinine Ur Random Sodium Ur Random Potassium Pleural Lipase Assessment & Plan (1) Thrombocytopenia Assessment and Plan: liver cirrhosis exacerbated by acute illness transfuse plt < 20,000 Status: Chronic Priority: Medium (2) Anemia Assessment and Plan: retic count, b12, folate, ferritin Thank you for this interesting consult. Status: Acute Priority: High
[2018-08-23] MEDS ORDERED: Chlorhexidine Gluconate 1 APPL/PKT TP ONE (23:05)
[2018-08-24] MEDS: levoFLOXacin 500 mg in D5W 500 MG/100 ML BAG IVPB SCH (01:32)
[2018-08-24] MEDS: Proshield Plus GEL TOP SCH ×3 (01:33→17:50)
--- NOTE | 2018-08-24 06:47 | CON ---
DATE: 08/23/2018 RENAL CONSULTATION LOCATION: The patient is located in room 432, bed 1. REQUESTED BY: Chintan Wayne MD REASON FOR FOLLOWUP: Acute renal failure and for further evaluation. HISTORY OF PRESENT ILLNESS: Mrs. Sheth is an 82-year-old elderly female with a past medical history significant for hypertension, diabetes, asthma, pulmonary hypertension, status post treatment with Tracleer as per the patient's family. Subsequently, the patient developed cirrhosis of the liver, was treated with diuretics and now admitted on 08/04/2018 with chief complaints of cough associated with yellow sputum and shortness of breath, being treated for pneumonia and CHF. The patient underwent thoracentesis x2 with resolution of the bilateral effusion. The patient developed acute renal failure with worsening renal function and was started on IV fluids. Now again, the patient is developing CHF with bilateral effusion, right more than the left. The patient is not in acute distress. The patient is also started on inotropic agent, dobutamine 2.5 mcg per minute, not in acute distress. The patient is lethargic. PHYSICAL EXAMINATION: VITAL SIGNS: This morning as follows: Blood pressure about 119/29, pulse 109, respiration 22, saturation 95% to 94%, temperature 97.2. Height 4 feet 11 inches, and weight is 129 pounds. GENERAL: Mrs. Sheth is an 82-year-old elderly female, moderately built, moderately nourished, not in acute distress. HEENT: Pupils normal and reactive to light and accommodation. Conjunctivae pink. Sclerae anicteric. Tongue is dry. Trachea is midline. LUNGS: Symmetric on both sides. Bilateral decreased breath sounds, right more than the left. CARDIOVASCULAR SYSTEM: [place] at the fifth intercostal space, midclavicular line. S1 and S2 audible. No murmur or gallop. ABDOMEN: Normal in appearance, soft, tympanitic. No guarding. No rigidity. No hepatosplenomegaly. CENTRAL NERVOUS SYSTEM: The patient is drowsy, arousable, following simple commands. EXTREMITIES: No cyanosis. No clubbing. CURRENT MEDICATIONS: Include as follows: Dobutamine 2.5 mcg/kg per minute, DuoNeb inhaler, lactulose, Humulin R per sliding scale, Levaquin 500 mg IV every 48 hours, lidocaine patch, also meropenem 500 mg IV piggyback daily, Phenaseptic throat spray every 12 hours p.r.n., Spiriva 18 mcg inhaler daily, Tylenol, Robitussin DM 10 mL p.o. every 6 hours p.r.n., Proshield Plus Skin Protectant one application topical every 8 hours. LABORATORY DATA: Include as follows as of 08/23/2018: WBC 18.8, hemoglobin 11.2, hematocrit 33.2, platelets 54. Her platelets on admission were 88,000 and on 08/10/2018, it was 133. VBG this morning: The pH of 7.49, pO2 of 38, pCO2 of 35, bicarbonate 27, saturation is 79%. Sodium 131, potassium 4.3, chloride 93, CO2 of 27, BUN 124, creatinine 3.9, and glucose is 180. Lactic acid 2.3. Serum osmolality 327. Calcium 9.6, phosphorus 6, magnesium 2.3. Total bili 1.9, AST 41, ALT 56, alkaline phosphatase 79. Ammonia 62, total protein 5.4, albumin is 2.3. Procalcitonin is 1.47. Urine osmolality 353 and urine creatine is 86.4, urine sodium is 6, and urine potassium is 47.2. Other reports: Chest x-ray as of 08/23/2018: Impression: [id number] right pleural effusion, new from the prior examination from 08/21/2018, underlying consolidation not excluded, small left pleural effusion and additional findings as mentioned. In summary, Mrs. Sheth is an 82-year-old elderly female with a previous echo from 06/05/2018, ejection fraction is 55% to 60%. Left ventricle end-diastolic function cannot be assess due to underlying atrial fibrillation. Pacemaker lead seen in the right ventricle, and the left atrium is severely dilated for history chronically elevated LA pressure. There is a moderate mitral wall regurgitation. There is [id number] tricuspid wall regurgitation, and right ventricular systolic pressure is calculated [address] of the abdomen and pelvis as of 08/20/2018 with a shrunken cirrhotic liver is appreciated with a nodular peripheral surface identified. Lack of images contrast limits solid abdominal viscera; however no gross masses demonstrated. Nevertheless, perihepatic ascites appears mild. Impression was hyperdensity related to the bilateral rectus abdominis musculature at the inferior abdomen pelvis , to represent [id number] intramuscular hemorrhage, [id number] ascites and cirrhotic liver identified in the groin, cholelithiasis, large right pleural effusion, trace left pleural effusion, cardiomegaly. ASSESSMENT AND PLAN: In summary, Mrs. Sheth is an 82-year-old elderly female with a history of hypertension, diabetes, asthma, chronic obstructive pulmonary disease, pulmonary hypertension, status post treatment with Tracleer as per the patient's family. Subsequently, the patient developed cirrhosis of the liver after one year which is discontinued and being treated for cirrhosis of the liver now admitted on 08/04/2018 with cough, shortness of breath associated with yellow sputum and being treated for congestive heart failure and also pneumonia. Now, the patient is in acute renal failure, oliguric. 1. Oliguric acute renal failure, most likely secondary to cirrhosis of the liver, cannot rule out hepatorenal syndrome. 2. Congestive heart failure with bilateral pleural effusion. 3. Atrial fibrillation. 4. Thrombocytopenia, rule out heparin-induced thrombocytopenia. I doubt it at this time, the patient has low platelet since admission and is stable. If the patient's family agrees, please try to obtain Santino catheter for hemodialysis. Overall prognosis is very poor. Thank you for allowing me to participate in your patient care. Case was discussed with Dr. Monroe who is attending in rounds, agree with the plan and restrict the fluids to 1 L per day now. Lalita Stovall MD TETO
[2018-08-24 07:04] LABS: BASO % 0.1 % (0.0-2.0); EOS # 0.1 K/uL (0.0-0.7); EOS % 0.4 % (0.0-4.0); LYMPH # 0.3 K/uL (1.0-4.3); LYMPH % 2.6 % (20.0-40.0); MEAN CELL VOLUME 99.4 fl (81.0-99.0); MEAN CORPUSCULAR HEMOGLOBIN 33.7 pg (27.0-31.0); MEAN CORPUSCULAR HGB CONC 33.9 g/dL (33.0-37.0); MEAN PLATELET VOLUME 9.1 fl (7.2-11.7); MONO # 0.8 K/uL (0.0-0.8); MONO % 6.1 % (0.0-10.0); NEUT # 11.8 K/uL (1.8-7.0); NEUT % 90.8 % (50.0-75.0); PLATELET COUNT 53 K/uL (130-400); RBC 2.96 Mil/uL (3.80-5.20); RED CELL DISTRIBUTION WIDTH 14.8 % (11.5-14.5)
[2018-08-24] MEDS: Albuterol-Ipratrop 3 mg / 0.5 (3 ml) UD INH SCH ×3 (07:45→19:17)
[2018-08-24 07:47] LABS: ALB/GLOB RATIO 0.7 (1.0-2.1); ALBUMIN 2.2 g/dL (3.5-5.0); CALCIUM 8.7 mg/dL (8.4-10.2)
[2018-08-24 08:22] LABS: INR 1.4; PROTHROMBIN TIME 15.7 Seconds (9.8-13.1)
[2018-08-24 08:24] LABS: PARTIAL THROMBOPLASTIN TIME 32.2 Seconds (25.6-37.1)
[2018-08-24 09:24] LABS: LYMPHOCYTE 4 % (20-50); MONOCYTE 6 % (0-10); NEUTROPHIL 90 % (42-75); TOTAL CELLS COUNTED 100
[2018-08-24 09:25] LABS: ANISOCYTOSIS SLIGHT; PLATELET ESTIMATE MARKEDLY DECREASED (NORMAL)
[2018-08-24 09:26] LABS: HYPOCHROMIC SLIGHT; LARGE PLATELETS PRESENT
[2018-08-24] MEDS: Sodium Chloride 0.9% 1,000 ML IV SCH (09:44)
[2018-08-24] MEDS: Meropenem 500 MG in Sodium Chloride 0.9% 100 ML IVPB SCH (09:44)
[2018-08-24] MEDS: Lidocaine 5% Patch TD SCH ×2 (09:47→09:53)
[2018-08-24] MEDS: Tiotropium 18 mcg Cap For Inhalation INH SCH ×2 (09:50→09:51)
--- NOTE | 2018-08-24 10:29 | RAD ---
Date of service: 08/24/2018 HISTORY: f/u effusion; CHF COMPARISON: No prior. FINDINGS: LUNGS: No definite infiltrate. Cannot exclude infiltrate at right base due to superimposed pleural fluid collection. PLEURA: Right pleural effusion, small to moderate. No left pleural effusion. No pneumothorax. CARDIOVASCULAR: No aortic atherosclerotic calcification present. Normal cardiac size. No congestive change. Left PICC catheter permanent pacemaker. OSSEOUS STRUCTURES: No significant abnormalities. VISUALIZED UPPER ABDOMEN: Normal. OTHER FINDINGS: None. IMPRESSION: Right pleural effusion. No definite infiltrate. Permanent pacemaker. Limited examination. Left PICC catheter noted.
--- NOTE | 2018-08-24 10:42 | CP.CCUPN ---
CCU Subjective - Physician Review Subjective (Free Text): Remains lethargic, has been on BIPAP since yesterday early evening as daughter related patient c/o inability to breathe. SPO2 100% and tolerated mild reduction in BiPAP to 50% at 10/5; TVs averaging 450-500ml. Afebrile, BP 108/40, HR 96-100 on low dose Dobutamine drip, urine output approx. 300ml overnight. She did receive 1 pack unit of Platelets last evening as delivered by external [place] agency. ROS: No other pertinent negs or positives on 10+ system review- unobtainable due to lethargy. PMSFH: All other Nursing and physician documentation reviewed to date; no new pertinent info noted relevant to current medical problems. EXAM- HEENT: no icterus, no gaze preference NECK: No JVD visible, supple, carotids equal upstroke bilat/no bruit. CHEST: decreased BS at the bases, especially R base; no wheezes audible bilaterally. HEART: irregular, distant, S1S2, no rubs or murmurs noted ABD: soft, nontender, no guarding, no organomegaly, BS hypoactive, lower abd wall ecchymoses. EXT: +1 leg edema, no calf tenderness or palpable cords, distal pulses faint but symmetrical. NEURO: withdraws to pain, + tone in all extremities. SKIN: no rashes, warm and dry LABS: WBC= 13.0 HGB= 10.0 PLTs= 53K INR = 1.4 Na= 137 K= 3.2 CL= 102 HCO3= 26 BUN/Cr= 116/4.0 BS= 231 Lactate = 1.5 CXR: (my interp)- re-accumulation of R effusion and compressive R basilar atelectasis. IMPRESSION / MAJOR PROBLEMS NOW: 1. Acute resp insuff 2 Pleural effusion ( r/o parapneumonic / pneumonia process) and s/p R Thora. 2. Hypotension / Shock 2 Hypovolemia / antiHTN meds-Diuretics. 3. Metabolic Encephalopathy (Azotemia, Hyperammonianemia), r/o Toxic Drug effect (Lexapro) 4. Hyponatremia 2 Hypovolemia / Diuretics 5. Abdom Wall Hematoma 6. Chronic A fib with controlled VR, PPM. PLAN: 1. Lactates have finally normalized today (since Dobutamine started). 2. Family / Daughter and son have agreed to HD. Platelets given yesterday, but no appreciable change in counts. Consider administering a dose of DDAVP and FFP prior to HD catheter placement. BUN/Cr rising despite IV hydration. No arrthymias noted with low K, will allow Nephrology to adjust K soln rather than giving K supplement now. 3. If lethargy persists or worsens, will need to advance to MV support, instead of keeping patient on BiPAP. Pulm and IR to address repeat thoracentesis or pigtail catheter drainage, or re-assess after first HD to see if any improvement in pleural fluid accumulation. 4. Will keep Dobutamine for now, unless otherwise directed by Cardio. Stop IVFs if HD today.
--- NOTE | 2018-08-24 10:55 | CP.PCM.PN ---
Subjective - Date & Time of Evaluation Date of Evaluation: 08/24/18 Time of Evaluation: 10:58 - Subjective Subjective: REFUSING TO KEEP BIPAP ON DAUGHTER AT BEDSIDE--CASE DISCUSSED WITH HER Objective - Vital Signs/Intake and Output Vital Signs (last 24 hours): Temp Pulse Resp BP Pulse Ox 97.8 F 98 H 23 101/42 L 97 08/24/18 08:00 08/24/18 09:00 08/24/18 09:00 08/24/18 09:00 08/24/18 09:00 Intake and Output: 08/24/18 08/24/18 06:59 18:59 Intake Total 1461 Output Total 300 Balance 1161 - Medications Medications: Current Medications Acetaminophen (Tylenol 325mg Tab) 650 mg PO Q6 PRN PRN Reason: Pain 1-10 Albuterol/Ipratropium (Duoneb 3 Mg/0.5 Mg (3 Ml) Ud) 3 ml INH RQ4 PRN PRN Reason: Shortness of Breath Last Admin: 08/22/18 01:00 Dose: 3 ml Albuterol/Ipratropium (Duoneb 3 Mg/0.5 Mg (3 Ml) Ud) 3 ml INH RTID [facility] Last Admin: 08/24/18 07:45 Dose: 3 ml Anastrozole (Arimidex 1 Mg Tab) 1 mg PO DAILY [facility] Last Admin: 08/22/18 09:00 Dose: Not Given Benzocaine/Menthol (Cepacol Sore Throat) 1 malu PO Q2 PRN PRN Reason: Sore Throat Calcium Acetate (Phoslo) 667 mg PO DAILY [facility] Last Admin: 08/22/18 10:00 Dose: Not Given Dextrose (Dextrose 50% Inj) 0 ml IV STAT PRN; Protocol PRN Reason: Hypoglycemia Protocol Dextrose (Glutose 15) 0 gm PO ONCE PRN; Protocol PRN Reason: Hypoglycemia Protocol Dimethicone (Proshield Plus Skin Protectant) 1 applic TOP Q8 [facility] Last Admin: 08/24/18 09:50 Dose: 1 applic Ergocalciferol (Drisdol 50,000 Intl Units Cap) 1 cap PO QWK [facility] Escitalopram Oxalate (Lexapro) 20 mg PO DAILY [facility] Furosemide (Lasix) 40 mg IVP BID [facility] Glucagon (Glucagen Diagnostic Kit) 0 mg IM STAT PRN; Protocol PRN Reason: Hypoglycemia Protocol Guaifenesin/Dextromethorphan (Robitussin Dm) 10 ml PO Q6 PRN PRN Reason: Cough Last Admin: 08/23/18 10:05 Dose: 10 ml Meropenem 500 mg/ Sodium (Chloride) 100 mls @ 100 mls/hr IVPB DAILY [facility]; Protoc ol Last Admin: 08/24/18 09:44 Dose: 100 mls/hr Levofloxacin/Dextrose (Levaquin 500mg) 500 mg in 100 mls @ 100 mls/hr IVPB Q48H [facility]; Protocol Last Admin: 08/24/18 01:32 Dose: 100 mls/hr Dobutamine HCl/Dextrose (Dobutamine/Dextrose 5% 500mg/250ml) 500 mg in 250 mls @ 4.388 mls/hr IV .Q24H [facility] Last Admin: 08/23/18 13:11 Dose: 4.388 mls/hr Insulin Detemir (Levemir) 15 units SC HS [facility] Insulin Human Lispro (Humalog) 10 units SC TIDAC [facility] Last Admin: 08/22/18 12:31 Dose: Not Given Insulin Human Regular (Humulin R) 0 units SC ACCU-CHECK [facility]; Protocol Last Admin: 08/23/18 23:22 Dose: Not Given Lactulose (Enulose) 20 gm PO TID [facility] Last Admin: 08/24/18 09:45 Dose: 20 gm Lidocaine (Lidoderm) 1 ea TD DAILY [facility] Last Admin: 08/24/18 09:53 Dose: 1 ea Losartan Potassium (Cozaar) 50 mg PO DAILY [facility] Metolazone (Zaroxolyn) 2.5 mg PO DAILY [facility] Phenol/Menthol (Phenaseptic 1.4% Throat [place]) 1 spry MT Q2 PRN PRN Reason: Pain, Mild (1-3) Last Admin: 08/23/18 15:59 Dose: 1 spray Rifaximin (Xifaxan) 550 mg PO BID [facility]; Protocol Last Admin: 08/22/18 09:07 Dose: Not Given Sitagliptin Phosphate (Januvia) 25 mg PO DAILY [facility] Last Admin: 08/22/18 09:01 Dose: Not Given Tiotropium [place] (Spiriva) 18 mcg INH DAILY [facility] Last Admin: 08/24/18 09:51 Dose: Not Given - Labs Labs: 08/24/18 06:45 08/24/18 06:45 PT 15.7 Seconds (9.8-13.1) H 08/24/18 06:45 INR 1.4 08/24/18 06:45 APTT 32.2 Seconds (25.6-37.1) 08/24/18 06:45 - Constitutional Appears: Chronically Ill - Head Exam Head Exam: ATRAUMATIC, NORMAL INSPECTION, NORMOCEPHALIC - Eye Exam Eye Exam: EOMI, Normal appearance, PERRL Pupil Exam: NORMAL ACCOMODATION, PERRL - ENT Exam ENT Exam: Mucous Membranes Moist, Normal Exam - Neck Exam Neck Exam: Full ROM, Normal Inspection. absent: Lymphadenopathy - Respiratory Exam Respiratory Exam: Prolonged Expiratory Phase, Rales, NORMAL BREATHING PATTERN Additional comments: ON BIPAP - Cardiovascular Exam Cardiovascular Exam: REGULAR RHYTHM, +S1, +S2. absent: Murmur - GI/Abdominal Exam GI & Abdominal Exam: Soft, Normal Bowel Sounds. absent: Tenderness - Rectal Exam Rectal Exam: NORMAL INSPECTION - Extremities Exam Extremities Exam: Full ROM, Normal Capillary Refill, Normal Inspection. absent: Joint Swelling, Pedal Edema - Back Exam Back Exam: NORMAL INSPECTION - Neurological Exam Neurological Exam: Alert, Awake, CN II-XII Intact, Normal Gait, Oriented x3 - Psychiatric Exam Psychiatric exam: Normal Affect, Normal Mood - Skin Skin Exam: Dry, Intact, Normal Color, Warm Assessment and Plan - Assessment and Plan (Free Text) Assessment: ACUTE RESPIRATORY FAILURE ACUTE RENAL FAILURE CHF VALVULAR HEART DZ PULMONARY HTN METABOLIC ENCEPHALOPATHY Plan: WILL CONTINUE BIPAP PT IS SCHEDULED FOR DIALYSIS TODAY
[2018-08-24] MEDS ORDERED: Lidocaine 1% Inj (20ml) ONE (11:37)
--- NOTE | 2018-08-24 12:09 | PCM.SURG1 ---
Surgeon's Initial Post Op Note - Surgeon's Notes Surgeon: Etelvina Billet Grinder: None Pre-Operative Diagnosis: ARF Operative Findings: Patent right IJV Post-Operative Diagnosis: ARF Operation Performed: Right IJV shiley placement Specimen/Specimens Removed: None Estimated Blood Loss: EBL {In ML}: 1 Date of Surgery/Procedure: 08/24/18 Time of Surgery/Procedure: 12:00
--- NOTE | 2018-08-24 14:26 | CP.PCM.PN ---
Subjective - Date & Time of Evaluation Date of Evaluation: 08/24/18 Time of Evaluation: 07:00 - Subjective Subjective: events noted will need HD iv antibiotics renewed Objective - Vital Signs/Intake and Output Vital Signs (last 24 hours): Temp Pulse Resp BP Pulse Ox 97.1 F L 95 H 12 118/40 L 100 08/24/18 12:31 08/24/18 13:10 08/24/18 13:10 08/24/18 13:10 08/24/18 13:10 Intake and Output: 08/24/18 08/24/18 06:59 18:59 Intake Total 1461 Output Total 300 0 Balance 1161 0 - Medications Medications: Current Medications Acetaminophen (Tylenol 325mg Tab) 650 mg PO Q6 PRN PRN Reason: Pain 1-10 Albuterol/Ipratropium (Duoneb 3 Mg/0.5 Mg (3 Ml) Ud) 3 ml INH RQ4 PRN PRN Reason: Shortness of Breath Last Admin: 08/22/18 01:00 Dose: 3 ml Albuterol/Ipratropium (Duoneb 3 Mg/0.5 Mg (3 Ml) Ud) 3 ml INH RTID [facility] Last Admin: 08/24/18 13:27 Dose: 3 ml Anastrozole (Arimidex 1 Mg Tab) 1 mg PO DAILY [facility] Last Admin: 08/22/18 09:00 Dose: Not Given Benzocaine/Menthol (Cepacol Sore Throat) 1 malu PO Q2 PRN PRN Reason: Sore Throat Calcium Acetate (Phoslo) 667 mg PO DAILY [facility] Last Admin: 08/22/18 10:00 Dose: Not Given Dextrose (Dextrose 50% Inj) 0 ml IV STAT PRN; Protocol PRN Reason: Hypoglycemia Protocol Dextrose (Glutose 15) 0 gm PO ONCE PRN; Protocol PRN Reason: Hypoglycemia Protocol Dimethicone (Proshield Plus Skin Protectant) 1 applic TOP Q8 [facility] Last Admin: 08/24/18 09:50 Dose: 1 applic Ergocalciferol (Drisdol 50,000 Intl Units Cap) 1 cap PO QWK [facility] Escitalopram Oxalate (Lexapro) 20 mg PO DAILY [facility] Furosemide (Lasix) 40 mg IVP BID [facility] Glucagon (Glucagen Diagnostic Kit) 0 mg IM STAT PRN; Protocol PRN Reason: Hypoglycemia Protocol Guaifenesin/Dextromethorphan (Robitussin Dm) 10 ml PO Q6 PRN PRN Reason: Cough Last Admin: 08/23/18 10:05 Dose: 10 ml Meropenem 500 mg/ Sodium (Chloride) 100 mls @ 100 mls/hr IVPB DAILY [facility]; Protocol Last Admin: 08/24/18 09:44 Dose: 100 mls/hr Levofloxacin/Dextrose (Levaquin 500mg) 500 mg in 100 mls @ 100 mls/hr IVPB Q48H [facility]; Protocol Last Admin: 08/24/18 01:32 Dose: 100 mls/hr Dobutamine HCl/Dextrose (Dobutamine/Dextrose 5% 500mg/250ml) 500 mg in 250 mls @ 4.388 mls/hr IV .Q24H [facility] Last Admin: 08/23/18 13:11 Dose: 4.388 mls/hr Insulin Detemir (Levemir) 15 units SC HS [facility] Insulin Human Lispro (Humalog) 10 units SC TIDAC [facility] Last Admin: 08/22/18 12:31 Dose: Not Given Insulin Human Regular (Humulin R) 0 units SC ACCU-CHECK [facility]; Protocol Last Admin: 08/23/18 23:22 Dose: Not Given Lactulose (Enulose) 20 gm PO TID [facility] Last Admin: 08/24/18 09:45 Dose: 20 gm Lidocaine (Lidoderm) 1 ea TD DAILY [facility] Last Admin: 08/24/18 09:53 Dose: 1 ea Losartan Potassium (Cozaar) 50 mg PO DAILY [facility] Metolazone (Zaroxolyn) 2.5 mg PO DAILY [facility] Phenol/Menthol (Phenaseptic 1.4% Throat [place]) 1 spry MT Q2 PRN PRN Reason: Pain, Mild (1-3) Last Admin: 08/23/18 15:59 Dose: 1 spray Rifaximin (Xifaxan) 550 mg PO BID [facility]; Protocol Last Admin: 08/22/18 09:07 Dose: Not Given Sitagliptin Phosphate (Januvia) 25 mg PO DAILY [facility] Last Admin: 08/22/18 09:01 Dose: Not Given Tiotropium [place] (Spiriva) 18 mcg INH DAILY [facility] Last Admin: 08/24/18 09:51 Dose: Not Given - Labs Labs: 08/24/18 06:45 08/24/18 06:45 PT 15.7 Seconds (9.8-13.1) H 08/24/18 06:45 INR 1.4 08/24/18 06:45 APTT 32.2 Seconds (25.6-37.1) 08/24/18 06:45 - Constitutional Appears: Non-toxic, Chronically Ill - Head Exam Head Exam: NORMOCEPHALIC - Eye Exam Eye Exam: absent: Scleral icterus - ENT Exam ENT Exam: Mucous Membranes Dry - Neck Exam Neck Exam: absent: Lymphadenopathy - Respiratory Exam Respiratory Exam: Decreased Breath Sounds - Cardiovascular Exam Cardiovascular Exam: REGULAR RHYTHM - GI/Abdominal Exam GI & Abdominal Exam: Distended, Soft - Rectal Exam Rectal Exam: Deferred - Exam Exam: NORMAL INSPECTION - Extremities Exam Extremities Exam: absent: Pedal Edema - Back Exam Back Exam: absent: CVA tenderness (L), CVA tenderness (R) Assessment and Plan (1) CHF (congestive heart failure) Status: Acute (2) HCAP (healthcare-associated pneumonia) Status: Acute (3) Pleural effusion Status: Acute (4) Acute diastolic heart failure due to valvular disease Status: Acute (5) Acute dyspnea Status: Acute (6) Acute renal failure Status: Acute - Assessment and Plan (Free Text) Assessment: ACUTE RESPIRATORY FAILURE ACUTE RENAL FAILURE CHF VALVULAR HEART DZ PULMONARY HTN METABOLIC ENCEPHALOPATHY WBC down on IV antibiotics cont IV antibiotics - elevated procalcitonin level, resp failure, pneumonia
[2018-08-24] MEDS: Insulin Regular 100 units/ml SC SCH ×3 (15:33→23:00)
[2018-08-24] MEDS: Potassium Chloride 20 mEq 100 ML IVPB SCH ×2 (16:25→17:58)
--- NOTE | 2018-08-24 19:09 | CP.PCM.PN ---
Subjective - Date & Time of Evaluation Date of Evaluation: 08/24/18 Time of Evaluation: 19:08 - Subjective Subjective: pt is seen and examinmed, follow up consult is dictated#[id number] for hd today Objective - Vital Signs/Intake and Output Vital Signs (last 24 hours): Temp Pulse Resp BP Pulse Ox 97.0 F L 96 H 10 L 117/39 L 100 08/24/18 16:00 08/24/18 18:00 08/24/18 18:00 08/24/18 18:00 08/24/18 18:00 Intake and Output: 08/24/18 08/25/18 18:59 06:59 Intake Total 1361 Output Total 250 Balance 1111 - Medications Medications: Current Medications Acetaminophen (Tylenol 325mg Tab) 650 mg PO Q6 PRN PRN Reason: Pain 1-10 Albuterol/Ipratropium (Duoneb 3 Mg/0.5 Mg (3 Ml) Ud) 3 ml INH RQ4 PRN PRN Reason: Shortness of Breath Last Admin: 08/22/18 01:00 Dose: 3 ml Albuterol/Ipratropium (Duoneb 3 Mg/0.5 Mg (3 Ml) Ud) 3 ml INH RTID [facility] Last Admin: 08/24/18 13:27 Dose: 3 ml Anastrozole (Arimidex 1 Mg Tab) 1 mg PO DAILY [facility] Last Admin: 08/22/18 09:00 Dose: Not Given Benzocaine/Menthol (Cepacol Sore Throat) 1 malu PO Q2 PRN PRN Reason: Sore Throat Calcium Acetate (Phoslo) 667 mg PO DAILY [facility] Last Admin: 08/22/18 10:00 Dose: Not Given Dextrose (Dextrose 50% Inj) 0 ml IV STAT PRN; Protocol PRN Reason: Hypoglycemia Protocol Dextrose (Glutose 15) 0 gm PO ONCE PRN; Protocol PRN Reason: Hypoglycemia Protocol Dimethicone (Proshield Plus Skin Protectant) 1 applic TOP Q8 [facility] Last Admin: 08/24/18 17:50 Dose: 1 applic Ergocalciferol (Drisdol 50,000 Intl Units Cap) 1 cap PO QWK [facility] Escitalopram Oxalate (Lexapro) 20 mg PO DAILY [facility] Furosemide (Lasix) 40 mg IVP BID [facility] Glucagon (Glucagen Diagnostic Kit) 0 mg IM STAT PRN; Protocol PRN Reason: Hypoglycemia Protocol Guaifenesin/Dextromethorphan (Robitussin Dm) 10 ml PO Q6 PRN PRN Reason: Cough Last Admin: 08/23/18 10:05 Dose: 10 ml Meropenem 500 mg/ Sodium (Chloride) 100 mls @ 100 mls/hr IVPB DAILY [facility]; Protocol Last Admin: 08/24/18 09:44 Dose: 100 mls/hr Levofloxacin/Dextrose (Levaquin 500mg) 500 mg in 100 mls @ 100 mls/hr IVPB Q48H [facility]; Protocol Last Admin: 08/24/18 01:32 Dose: 100 mls/hr Dobutamine HCl/Dextrose (Dobutamine/Dextrose 5% 500mg/250ml) 500 mg in 250 mls @ 4.388 mls/hr IV .Q24H [facility] Last Admin: 08/23/18 13:11 Dose: 4.388 mls/hr Potassium Chloride (Potassium Chloride 20 Meq/100 Ml) 100 mls @ 50 mls/hr IVPB Q2 [facility] Stop: 08/24/18 19:59 Last Admin: 08/24/18 17:58 Dose: 50 mls/hr Insulin Detemir (Levemir) 15 units SC HS [facility] Insulin Human Lispro (Humalog) 10 units SC TIDAC [facility] Last Admin: 08/22/18 12:31 Dose: Not Given Insulin Human Regular (Humulin R) 0 units SC ACCU-CHECK [facility]; Protocol Last Admin: 08/24/18 17:37 Dose: 2 unit Lactulose (Enulose) 20 gm PO TID [facility] Last Admin: 08/24/18 17:38 Dose: Not Given Lidocaine (Lidoderm) 1 ea TD DAILY [facility] Last Admin: 08/24/18 09:53 Dose: 1 ea Losartan Potassium (Cozaar) 50 mg PO DAILY [facility] Metolazone (Zaroxolyn) 2.5 mg PO DAILY [facility] Phenol/Menthol (Phenaseptic 1.4% Throat [place]) 1 spry MT Q2 PRN PRN Reason: Pain, Mild (1-3) Last Admin: 08/23/18 15:59 Dose: 1 spray Rifaximin (Xifaxan) 550 mg PO BID [facility]; Protocol Last Admin: 08/22/18 09:07 Dose: Not Given Sitagliptin Phosphate (Januvia) 25 mg PO DAILY [facility] Last Admin: 08/22/18 09:01 Dose: Not Given Tiotropium [place] (Spiriva) 18 mcg INH DAILY [facility] Last Admin: 08/24/18 09:51 Dose: Not Given - Labs Labs: 08/24/18 06:45 08/24/18 06:45 PT 15.7 Seconds (9.8-13.1) H 08/24/18 06:45 INR 1.4 08/24/18 06:45 APTT 32.2 Seconds (25.6-37.1) 08/24/18 06:45
[2018-08-24] MEDS ORDERED: Albumin Human 25% (12.5 gm/50 ml) IV ONE (19:11)
[2018-08-25] MEDS: Proshield Plus GEL TOP SCH ×3 (01:00→18:26)
--- NOTE | 2018-08-25 02:58 | PN ---
DATE: 08/24/2018 FOLLOWUP RENAL CONSULTATION LOCATION: The patient is located in ICU, room 435, bed 1. REQUESTED BY: Chintan Wayne MD REASON FOR FOLLOWUP: Acute renal failure, oliguric, and shortness of breath. SUBJECTIVE: Mrs. Sheth is an 82-year-old elderly female with past medical history significant for hypertension, COPD, pulmonary hypertension, status post treatment with Tracleer and subsequently the patient developed cirrhosis of the liver, CHF, was admitted with cough, shortness of breath, and being treated for pneumonia and CHF, status post thoracentesis x2. Subsequently, her hospital course complicated by worsening renal function and acute renal failure, requiring transfer back to ICU and with recurrence of pleural effusion after IV fluid resuscitation without significant improvement of the renal function. The patient is on BiPAP. The patient's family agreed for a trial of hemodialysis. The patient is not in distress on BiPAP. PHYSICAL EXAMINATION: VITAL SIGNS: Blood pressure 116/41, pulse 100, respiration is 12, temperature 97.5, saturation 100%. Height 4 feet 11 inches and weight is 136 pounds. GENERAL: Mrs. Sheth is an 82-year-old elderly female, moderately built, moderately nourished, on BiPAP. HEENT: Pupils normal and reactive to light and accommodation. Conjunctivae pink. Sclerae anicteric. On BiPAP. No thyroid enlargement. LUNGS: Symmetrical on both sides. Decreased breath sounds, right more than the left. CVS: S1, S2 audible. Slightly tachycardic. Mildly irregularly irregular. ABDOMEN: Normal in appearance, soft, tympanitic. No guarding. No rigidity. No hepatosplenomegaly. IC DESIGN ENGINEER: The patient is awake, oriented x2. Sensory and motor system is grossly within normal limits. EXTREMITIES: No cyanosis. No clubbing. No edema. MEDICATIONS: Reviewed include Cepacol 1 lozenges p.o. every 2 hours p.r.n., albuterol inhaler, Lactulose, Levofloxacin 500 mg every 48 hours, Meropenem 500 mg IV daily, Tylenol, Spiriva and Robitussin DM. LABORATORY DATA: Include as follows: As of 08/24/2018, WBC of 13, hemoglobin 10, hematocrit is 29.5, platelets 53. PT 15.7, INR 1.4, PTT 32.2, and fibrinogen 384. Sodium 137, potassium 3.2, chloride 102, CO2 of 26, BUN 116, creatinine is 4, glucose is 231. Lactic acid is 1.5, calcium 8.7, phosphorus is 5, magnesium 2.3, total bilirubin 1.6, AST 35, ALT 53, alkaline phosphatase 69, total protein 5.3, albumin is 2.2. Chest x-ray as of 08/24/2018 , impression, right pleural effusion and no definite infiltrate. Permanent pacemaker, limited examination, left catheter noted. ASSESSMENT AND PLAN: In summary, Mrs. Sheth is an 82-year-old elderly female with history of hypertension, diabetes, asthma, atrial fibrillation, status post pacemaker, congestive heart failure, chronic obstructive pulmonary disease, cirrhosis of the liver, hyperlipidemia, hyperthyroidism, status post nephrolithiasis and chronic kidney disease, was admitted with cough, shortness of breath, and status post thoracentesis with acute renal failure on chronic kidney disease. 1. Acute renal failure on chronic kidney disease secondary to multifactorial secondary to cirrhosis of the liver with the severe pulmonary hypertension, tricuspid regurgitation and right heart failure. 2. Atrial fibrillation. 3. Bilateral pleural effusion. 4. Cirrhosis of the liver with right heart failure. 5. Thrombocytopenia. PLAN: The patient's family agreed for Santino catheter placement and trial of hemodialysis. We will schedule for hemodialysis today, this evening and again tomorrow slow dialysis. We will follow with you. We will ultrafiltrate as much as the patient can tolerate 1 L to 1.5 L and also we will give albumin 25%, 50 mL every 1 hour x2 doses during hemodialysis. Overall prognosis is very poor. Thank you for letting me to participate in your patient's care. Lalita Stovall MD
[2018-08-25 06:34] LABS: BASO % 0.2 % (0.0-2.0); EOS # 0.1 K/uL (0.0-0.7); EOS % 0.9 % (0.0-4.0); HEMOGLOBIN 8.9 g/dL (12.0-16.0); LYMPH # 0.4 K/uL (1.0-4.3); LYMPH % 4.7 % (20.0-40.0); MEAN CELL VOLUME 100.3 fl (81.0-99.0); MEAN CORPUSCULAR HEMOGLOBIN 33.7 pg (27.0-31.0); MEAN CORPUSCULAR HGB CONC 33.6 g/dL (33.0-37.0); MEAN PLATELET VOLUME 9.1 fl (7.2-11.7); MONO # 0.7 K/uL (0.0-0.8); NEUT # 7.3 K/uL (1.8-7.0); NEUT % 86.2 % (50.0-75.0); NRBC % 0.1 % (0.0-0.0); RBC 2.64 Mil/uL (3.80-5.20); RED CELL DISTRIBUTION WIDTH 15.5 % (11.5-14.5); WHITE BLOOD COUNT 8.5 K/uL (4.8-10.8)
[2018-08-25] MEDS: Insulin Regular 100 units/ml SC SCH (07:19)
[2018-08-25 07:23] LABS: ALB/GLOB RATIO 0.9 (1.0-2.1); ALBUMIN 2.4 g/dL (3.5-5.0); CALCIUM 8.3 mg/dL (8.4-10.2)
--- NOTE | 2018-08-25 07:30 | CP.CCUPN ---
CCU Subjective - Physician Review Events Since Last Encounter (Free Text): Patient awake, lethargic, opens eyes to verbal stimuli, on BIPAP, FIO2 50%, on dobutamine, no fever, events reviewed CCU Objective - Vital Signs / Intake & Output Vital Signs (Last 4 hours): Vital Signs Pulse Resp BP Pulse Ox 08/25/18 06:00 108 H 20 115/44 L 100 08/25/18 05:00 95 H 18 126/46 L 97 08/25/18 04:00 93 H 18 117/44 L 100 Intake and Output (Last 8hrs): Intake & Output 08/24/18 08/25/18 08/25/18 22:59 06:59 14:59 Intake Total 1713 26 Output Total 250 150 Balance 1463 -124 Weight 140 lb Intake: IV 1313 16 Intake, Piggyback 400 Oral 10 Output: Urine 250 150 Urethral (Crane) 250 150 Other: # Bowel Movements 1 - Physical Exam Head: Positive for: Atraumatic, Normocephalic Pupils: Positive for: PERRL Conjunctiva: Positive for: Normal Ears: Positive for: Normal Mouth: Positive for: Moist Mucous Membranes Nose (External): Positive for: Atraumatic Neck: Positive for: Normal Range of Motion Respiratory/Chest: Positive for: Rhonchi Cardiovascular: Positive for: Irregular Rhythm Abdomen: Positive for: Normal Bowel Sounds Upper Extremity: Positive for: Normal Inspection Lower Extremity: Positive for: Normal Inspection Neurological: Positive for: Other (lethergic) - Medications Active Medications: Active Medications Generic Name Dose Route Start Last Admin Trade Name Freq PRN Reason Stop Dose Admin Acetaminophen 650 mg 08/22/18 00:16 Tylenol 325mg Tab PO Q6 PRN Pain 1-10 Albuterol/Ipratropium 3 ml 08/22/18 00:16 08/22/18 01:00 Duoneb 3 Mg/0.5 Mg (3 Ml) Ud INH 3 ml RQ4 PRN Administration Shortness of Breath Albuterol/Ipratropium 3 ml 08/22/18 08:00 08/24/18 19:17 Duoneb 3 Mg/0.5 Mg (3 Ml) Ud INH 3 ml RTID KATEY Administration Anastrozole 1 mg 08/22/18 09:00 08/22/18 09:00 Arimidex 1 Mg Tab PO Not Given DAILY KATEY Benzocaine/Menthol 1 malu 08/22/18 00:16 Cepacol Sore Throat PO Q2 PRN Sore Throat Calcium Acetate 667 mg 08/22/18 09:00 08/22/18 10:00 Phoslo PO Not Given DAILY KATEY Dextrose 0 ml 08/22/18 00:16 Dextrose 50% Inj IV STAT PRN Hypoglycemia Protocol Protocol Dextrose 0 gm 08/22/18 00:16 Glutose 15 PO ONCE PRN Hypoglycemia Protocol Protocol Dimethicone 1 applic 08/22/18 01:00 08/25/18 01:00 Proshield Plus Skin Protectant TOP 1 applic Q8 KATEY Administration Ergocalciferol 1 cap 08/22/18 00:16 Drisdol 50,000 Intl Units Cap PO QWK KATEY Escitalopram Oxalate 20 mg 08/22/18 09:00 Lexapro PO DAILY KATEY Furosemide 40 mg 08/22/18 09:00 Lasix IVP BID KATEY Glucagon 0 mg 08/22/18 00:16 Glucagen Diagnostic Kit IM STAT PRN Hypoglycemia Protocol Protocol Guaifenesin/Dextromethorphan 10 ml 08/22/18 00:16 08/23/18 10:05 Robitussin Dm PO 10 ml Q6 PRN Administration Cough Meropenem 500 mg/ Sodium 100 mls @ 100 mls/hr 08/22/18 09:00 08/24/18 09:44 Chloride IVPB 100 mls/hr DAILY AKTEY Administration Protocol Levofloxacin/Dextrose 500 mg in 100 mls @ 100 mls/hr 08/22/18 01:00 08/24/18 01:32 Levaquin 500mg IVPB 100 mls/hr Q48H KATEY Administration Protocol Dobutamine HCl/Dextrose 500 mg in 250 mls @ 4.388 mls/hr 08/23/18 12:24 08/23/18 13:11 Dobutamine/Dextrose 5% 500mg/250ml IV 4.388 mls/hr .Q24H KATEY Administration 2.5 MCG/KG/MIN Insulin Detemir 15 units 08/22/18 22:00 Levemir SC HS KATEY Insulin Human Lispro 10 units 08/22/18 07:30 08/22/18 12:31 Humalog SC Not Given TIDAC [facility] Insulin Human Regular 0 units 08/22/18 23:00 01/19/19 07:19 Humulin R SC Not Given ACCU-CHECK [facility] Protocol Lactulose 20 gm 08/22/18 09:00 08/24/18 17:38 Enulose PO Not Given TID KATEY Lidocaine 1 ea 08/22/18 09:00 08/24/18 09:53 Lidoderm TD 1 ea DAILY KATEY Administration Losartan Potassium 50 mg 08/22/18 09:00 Cozaar PO DAILY [facility] Metolazone 2.5 mg 08/22/18 09:00 Zaroxolyn PO DAILY [facility] Phenol/Menthol 1 spry 08/23/18 15:10 08/23/18 15:59 Phenaseptic 1.4% Throat [place] 1 spray Q2 PRN Administration Pain, Mild (1-3) Rifaximin 550 mg 08/22/18 09:00 08/22/18 09:07 Xifaxan PO Not Given BID [facility] Protocol Sitagliptin Phosphate 25 mg 08/22/18 09:00 08/22/18 09:01 Januvia PO Not Given DAILY [facility] Tiotropium [place] 18 mcg 08/22/18 09:00 08/24/18 09:51 Spiriva INH Not Given DAILY [facility] - Patient Studies Lab Studies: Microbiology Studies 08/21/18 14:05 Blood Culture - Preliminary Blood-Venous NO GROWTH AFTER 3 DAYS 08/21/18 13:30 Gram Stain - Final Pleural Fluid Body Fluid Culture - Preliminary NO GROWTH AFTER 3 DAYS 08/21/18 10:29 Blood Culture - Preliminary Blood-Venous NO GROWTH AFTER 3 DAYS 08/22/18 06:16 Gram Stain - Final Sputum Sputum Culture - Preliminary NORMAL ORAL RON 08/22/18 02:10 Urine Culture - Final Urine,Catheterized No Growth (<1,000 CFU/ML) Lab Studies 08/25/18 08/25/18 08/25/18 Range/Units 05:30 05:30 05:16 WBC 8.5 (4.8-10.8) K/uL RBC 2.64 L (3.80-5.20) Mil/uL Hgb 8.9 L (12.0-16.0) g/dL Hct 26.4 L (34.0-47.0) % MCV 100.3 H (81.0-99.0) fl MCH 33.7 H (27.0-31.0) pg MCHC 33.6 (33.0-37.0) g/dL RDW 15.5 H (11.5-14.5) % Plt Count 25 L* D (130-400) K/uL MPV 9.1 (7.2-11.7) fl Neut % (Auto) 86.2 H (50.0-75.0) % Lymph % (Auto) 4.7 L (20.0-40.0) % [place] % (Auto) 8.0 (0.0-10.0) % Eos % (Auto) 0.9 (0.0-4.0) % Baso % (Auto) 0.2 (0.0-2.0) % Neut # (Auto) 7.3 H (1.8-7.0) K/uL Lymph # (Auto) 0.4 L (1.0-4.3) K/uL [place] # (Auto) 0.7 (0.0-0.8) K/uL Eos # (Auto) 0.1 (0.0-0.7) K/uL Baso # (Auto) 0.0 (0.0-0.2) K/uL Neutrophils % (Manual) (42-75) % Lymphocytes % (Manual) (20-50) % Monocytes % (Manual) (0-10) % Platelet Estimate (NORMAL) Large Platelets Hypochromasia (manual) Anisocytosis (manual) PT (9.8-13.1) Seconds INR APTT (25.6-37.1) Seconds Fibrinogen (200-400) mg/dl Sodium 140 (132-148) mmol/l Potassium 3.7 (3.6-5.0) MMOL/L Chloride 103 (98-107) mmol/L Carbon Dioxide 24 (22-30) mmol/L Anion Gap 17 (10-20) BUN 89 H (7-17) mg/dl Creatinine 3.0 H (0.7-1.2) mg/dl Est GFR ( Amer) 18 Est GFR (Non-Af Amer) 15 POC Glucose (mg/dL) 147 H (65-110) mg/dL Random Glucose 148 H (65-105) mg/dL Calcium 8.3 L (8.4-10.2) mg/dL Phosphorus 3.9 (2.5-4.5) mg/dl Magnesium 2.1 (1.6-2.3) MG/DL Total Bilirubin 2.1 H (0.2-1.3) mg/dl AST 33 (14-36) U/L ALT 47 (9-52) U/L Alkaline Phosphatase 58 (38-126) U/L Total Protein 5.2 L (6.3-8.2) G/DL Albumin 2.4 L (3.5-5.0) g/dL Globulin 2.8 (2.2-3.9) gm/dL Albumin/Globulin Ratio 0.9 L (1.0-2.1) 08/24/18 08/24/18 08/24/18 Range/Units 21:25 16:50 11:08 WBC (4.8-10.8) K/uL RBC (3.80-5.20) Mil/uL Hgb (12.0-16.0) g/dL Hct (34.0-47.0) % MCV (81.0-99.0) fl MCH (27.0-31.0) pg MCHC (33.0-37.0) g/dL RDW (11.5-14.5) % Plt Count (130-400) K/uL MPV (7.2-11.7) fl Neut % (Auto) (50.0-75.0) % Lymph % (Auto) (20.0-40.0) % [place] % (Auto) (0.0-10.0) % Eos % (Auto) (0.0-4.0) % Baso % (Auto) (0.0-2.0) % Neut # (Auto) (1.8-7.0) K/uL Lymph # (Auto) (1.0-4.3) K/uL [place] # (Auto) (0.0-0.8) K/uL Eos # (Auto) (0.0-0.7) K/uL Baso # (Auto) (0.0-0.2) K/uL Neutrophils % (Manual) (42-75) % Lymphocytes % (Manual) (20-50) % Monocytes % (Manual) (0-10) % Platelet Estimate (NORMAL) Large Platelets Hypochromasia (manual) Anisocytosis (manual) PT (9.8-13.1) Seconds INR APTT (25.6-37.1) Seconds Fibrinogen (200-400) mg/dl Sodium (132-148) mmol/l Potassium (3.6-5.0) MMOL/L Chloride (98-107) mmol/L Carbon Dioxide (22-30) mmol/L Anion Gap (10-20) BUN (7-17) mg/dl Creatinine (0.7-1.2) mg/dl Est GFR ( Amer) Est GFR (Non-Af Amer) POC Glucose (mg/dL) 153 H 224 H 213 H (65-110) mg/dL Random Glucose (65-105) mg/dL Calcium (8.4-10.2) mg/dL Phosphorus (2.5-4.5) mg/dl Magnesium (1.6-2.3) MG/DL Total Bilirubin (0.2-1.3) mg/dl AST (14-36) U/L ALT (9-52) U/L Alkaline Phosphatase (38-126) U/L Total Protein (6.3-8.2) G/DL Albumin (3.5-5.0) g/dL Globulin (2.2-3.9) gm/dL Albumin/Globulin Ratio (1.0-2.1) 08/24/18 08/24/18 08/24/18 Range/Units 06:45 06:45 06:45 WBC (4.8-10.8) K/uL RBC (3.80-5.20) Mil/uL Hgb (12.0-16.0) g/dL Hct (34.0-47.0) % MCV (81.0-99.0) fl MCH (27.0-31.0) pg MCHC (33.0-37.0) g/dL RDW (11.5-14.5) % Plt Count (130-400) K/uL MPV (7.2-11.7) fl Neut % (Auto) (50.0-75.0) % Lymph % (Auto) (20.0-40.0) % [place] % (Auto) (0.0-10.0) % Eos % (Auto) (0.0-4.0) % Baso % (Auto) (0.0-2.0) % Neut # (Auto) (1.8-7.0) K/uL Lymph # (Auto) (1.0-4.3) K/uL [place] # (Auto) (0.0-0.8) K/uL Eos # (Auto) (0.0-0.7) K/uL Baso # (Auto) (0.0-0.2) K/uL Neutrophils % (Manual) 90 H (42-75) % Lymphocytes % (Manual) 4 L (20-50) % Monocytes % (Manual) 6 (0-10) % Platelet Estimate Markedly decreased L (NORMAL) Large Platelets Present Hypochromasia (manual) Slight Anisocytosis (manual) Slight PT 15.7 H (9.8-13.1) Seconds INR 1.4 APTT 32.2 (25.6-37.1) Seconds Fibrinogen 384 (200-400) mg/dl Sodium 137 (132-148) mmol/l Potassium 3.2 L (3.6-5.0) MMOL/L Chloride 102 (98-107) mmol/L Carbon Dioxide 26 (22-30) mmol/L Anion Gap 12 (10-20) BUN 116 H* (7-17) mg/dl Creatinine 4.0 H (0.7-1.2) mg/dl Est GFR ( Amer) 13 Est GFR (Non-Af Amer) 11 POC Glucose (mg/dL) (65-110) mg/dL Random Glucose 231 H (65-105) mg/dL Calcium 8.7 (8.4-10.2) mg/dL Phosphorus 5.0 H (2.5-4.5) mg/dl Magnesium 2.3 (1.6-2.3) MG/DL Total Bilirubin 1.6 H (0.2-1.3) mg/dl AST 35 (14-36) U/L ALT 53 H (9-52) U/L Alkaline Phosphatase 69 (38-126) U/L Total Protein 5.3 L (6.3-8.2) G/DL Albumin 2.2 L (3.5-5.0) g/dL Globulin 3.0 (2.2-3.9) gm/dL Albumin/Globulin Ratio 0.7 L (1.0-2.1) Laboratory Results - last 24 hr 01/08/24/18 08/24/18 06:45 06:45 06:45 WBC RBC Hgb Hct MCV MCH MCHC RDW Plt Count MPV Neut % (Auto) Lymph % (Auto) [place] % (Auto) Eos % (Auto) Baso % (Auto) Neut # (Auto) Lymph # (Auto) [place] # (Auto) Eos # (Auto) Baso # (Auto) Neutrophils % (Manual) 90 H Lymphocytes % (Manual) 4 L Monocytes % (Manual) 6 Platelet Estimate Markedly decreased L Large Platelets Present Hypochromasia (manual) Slight Anisocytosis (manual) Slight PT 15.7 H INR 1.4 APTT 32.2 Fibrinogen 384 Sodium 137 Potassium 3.2 L Chloride 102 Carbon Dioxide 26 Anion Gap 12 BUN 116 H* Creatinine 4.0 H Est GFR ( Amer) 13 Est GFR (Non-Af Amer) 11 POC Glucose (mg/dL) Random Glucose 231 H Calcium 8.7 Phosphorus 5.0 H Magnesium 2.3 Total Bilirubin 1.6 H AST 35 ALT 53 H Alkaline Phosphatase 69 Total Protein 5.3 L Albumin 2.2 L Globulin 3.0 Albumin/Globulin Ratio 0.7 L 08/24/18 08/24/18 08/24/18 11:08 16:50 21:25 WBC RBC Hgb Hct MCV MCH MCHC RDW Plt Count MPV Neut % (Auto) Lymph % (Auto) [place] % (Auto) Eos % (Auto) Baso % (Auto) Neut # (Auto) Lymph # (Auto) [place] # (Auto) Eos # (Auto) Baso # (Auto) Neutrophils % (Manual) Lymphocytes % (Manual) Monocytes % (Manual) Platelet Estimate Large Platelets Hypochromasia (manual) Anisocytosis (manual) PT INR APTT Fibrinogen Sodium Potassium Chloride Carbon Dioxide Anion Gap BUN Creatinine Est GFR ( Amer) Est GFR (Non-Af Amer) POC Glucose (mg/dL) 213 H 224 H 153 H Random Glucose Calcium Phosphorus Magnesium Total Bilirubin AST ALT Alkaline Phosphatase Total Protein Albumin Globulin Albumin/Globulin Ratio 08/25/18 08/25/18 08/25/18 05:16 05:30 05:30 WBC 8.5 RBC 2.64 L Hgb 8.9 L Hct 26.4 L MCV 100.3 H MCH 33.7 H MCHC 33.6 RDW 15.5 H Plt Count 25 L* D MPV 9.1 Neut % (Auto) 86.2 H Lymph % (Auto) 4.7 L [place] % (Auto) 8.0 Eos % (Auto) 0.9 Baso % (Auto) 0.2 Neut # (Auto) 7.3 H Lymph # (Auto) 0.4 L [place] # (Auto) 0.7 Eos # (Auto) 0.1 Baso # (Auto) 0.0 Neutrophils % (Manual) Lymphocytes % (Manual) Monocytes % (Manual) Platelet Estimate Large Platelets Hypochromasia (manual) Anisocytosis (manual) PT INR APTT Fibrinogen Sodium 140 Potassium 3.7 Chloride 103 Carbon Dioxide 24 Anion Gap 17 BUN 89 H Creatinine 3.0 H Est GFR ( Amer) 18 Est GFR (Non-Af Amer) 15 POC Glucose (mg/dL) 147 H Random Glucose 148 H Calcium 8.3 L Phosphorus 3.9 Magnesium 2.1 Total Bilirubin 2.1 H AST 33 ALT 47 Alkaline Phosphatase 58 Total Protein 5.2 L Albumin 2.4 L Globulin 2.8 Albumin/Globulin Ratio 0.9 L Radiology Impressions: Radiology Impressions Chest X-Ray 08/24/18 06:00 IMPRESSION: Right pleural effusion. No definite infiltrate. Permanent pacemaker. Limited examination. Left PICC catheter noted. Fingerstick Blood Sugar Results: 147 Critical Care Progress Note - Nutrition Nutrition: Nutrition Category Date Time Status Dysphagia/Modified Consistency Diet [DIET] Diets 08/25/18 Breakfast Active Assessment/Plan - Assessment and Plan (Free Text) Assessment: A/P Respiratory failure, pleural effusion, ?pneumonia, renal failure, thrombocytopenia, abdominal wall hematoma, hyponatremia improving, metabolic encephalopathy, chronic A Fib - BIPAP - Intubation if worsen - Antibiotics - Transfusion as needed - Dialysis as per renal Critical care 40 min
[2018-08-25] MEDS: Albuterol-Ipratrop 3 mg / 0.5 (3 ml) UD INH SCH ×3 (07:41→19:07)
[2018-08-25] MEDS: Lidocaine 5% Patch TD SCH (08:25)
[2018-08-25] MEDS: Tiotropium 18 mcg Cap For Inhalation INH SCH (08:26)
--- NOTE | 2018-08-25 08:48 | CP.PCM.PN ---
Subjective - Date & Time of Evaluation Date of Evaluation: 08/25/18 Time of Evaluation: 08:20 - Subjective Subjective: patient remains lethargic. dialysis has been started. Patient is on dobutamine 2.5 mcg Objective - Vital Signs/Intake and Output Vital Signs (last 24 hours): Temp Pulse Resp BP Pulse Ox 98.8 F 108 H 20 115/44 L 100 08/25/18 03:00 08/25/18 06:00 08/25/18 06:00 08/25/18 06:00 08/25/18 06:00 Intake and Output: 08/25/18 08/25/18 06:59 18:59 Intake Total 378 Output Total 150 Balance 228 - Medications Medications: Current Medications Acetaminophen (Tylenol 325mg Tab) 650 mg PO Q6 PRN PRN Reason: Pain 1-10 Albuterol/Ipratropium (Duoneb 3 Mg/0.5 Mg (3 Ml) Ud) 3 ml INH RQ4 PRN PRN Reason: Shortness of Breath Last Admin: 08/22/18 01:00 Dose: 3 ml Albuterol/Ipratropium (Duoneb 3 Mg/0.5 Mg (3 Ml) Ud) 3 ml INH RTID [facility] Last Admin: 08/25/18 07:41 Dose: 3 ml Anastrozole (Arimidex 1 Mg Tab) 1 mg PO DAILY [facility] Last Admin: 08/22/18 09:00 Dose: Not Given Benzocaine/Menthol (Cepacol Sore Throat) 1 malu PO Q2 PRN PRN Reason: Sore Throat Calcium Acetate (Phoslo) 667 mg PO DAILY [facility] Last Admin: 08/22/18 10:00 Dose: Not Given Dextrose (Dextrose 50% Inj) 0 ml IV STAT PRN; Protocol PRN Reason: Hypoglycemia Protocol Dextrose (Glutose 15) 0 gm PO ONCE PRN; Protocol PRN Reason: Hypoglycemia Protocol Dimethicone (Proshield Plus Skin Protectant) 1 applic TOP Q8 [facility] Last Admin: 08/25/18 08:26 Dose: 1 applic Ergocalciferol (Drisdol 50,000 Intl Units Cap) 1 cap PO QWK [facility] Escitalopram Oxalate (Lexapro) 20 mg PO DAILY KATEY Furosemide (Lasix) 40 mg IVP BID KATEY Glucagon (Glucagen Diagnostic Kit) 0 mg IM STAT PRN; Protocol PRN Reason: Hypoglycemia Protocol Guaifenesin/Dextromethorphan (Robitussin Dm) 10 ml PO Q6 PRN PRN Reason: Cough Last Admin: 08/23/18 10:05 Dose: 10 ml Meropenem 500 mg/ Sodium (Chloride) 100 mls @ 100 mls/hr IVPB DAILY [facility]; Protocol Last Admin: 08/24/18 09:44 Dose: 100 mls/hr Levofloxacin/Dextrose (Levaquin 500mg) 500 mg in 100 mls @ 100 mls/hr IVPB Q48H KATEY; Protocol Last Admin: 08/24/18 01:32 Dose: 100 mls/hr Dobutamine HCl/Dextrose (Dobutamine/Dextrose 5% 500mg/250ml) 500 mg in 250 mls @ 4.388 mls/hr IV .Q24H [facility] Last Admin: 08/23/18 13:11 Dose: 4.388 mls/hr Insulin Detemir (Levemir) 15 units SC HS [facility] Insulin Human Lispro (Humalog) 10 units SC TIDAC [facility] Last Admin: 08/22/18 12:31 Dose: Not Given Insulin Human Regular (Humulin R) 0 units SC ACCU-CHECK [facility]; Protocol Last Admin: 08/25/18 07:19 Dose: Not Given Lactulose (Enulose) 20 gm PO TID [facility] Last Admin: 08/25/18 08:24 Dose: 20 gm Lidocaine (Lidoderm) 1 ea TD DAILY [facility] Last Admin: 08/25/18 08:25 Dose: 1 ea Losartan Potassium (Cozaar) 50 mg PO DAILY [facility] Metolazone (Zaroxolyn) 2.5 mg PO DAILY [facility] Phenol/Menthol (Phenaseptic 1.4% Throat [place]) 1 spry [place] Q2 PRN PRN Reason: Pain, Mild (1-3) Last Admin: 08/23/18 15:59 Dose: 1 spray Rifaximin (Xifaxan) 550 mg PO BID [facility]; Protocol Last Admin: 08/22/18 09:07 Dose: Not Given Sitagliptin Phosphate (Januvia) 25 mg PO DAILY [facility] Last Admin: 08/22/18 09:01 Dose: Not Given Tiotropium [place] (Spiriva) 18 mcg INH DAILY [facility] Last Admin: 08/25/18 08:26 Dose: Not Given - Labs Labs: 08/25/18 05:30 08/25/18 05:30 PT 15.7 Seconds (9.8-13.1) H 08/24/18 06:45 INR 1.4 08/24/18 06:45 APTT 32.2 Seconds (25.6-37.1) 08/24/18 06:45 - Constitutional Appears: Chronically Ill - Head Exam Head Exam: NORMAL INSPECTION - Eye Exam Eye Exam: Normal appearance - ENT Exam ENT Exam: Mucous Membranes Dry - Neck Exam Neck Exam: Full ROM - Respiratory Exam Respiratory Exam: Decreased Breath Sounds - Cardiovascular Exam Cardiovascular Exam: Irregular Rhythm - GI/Abdominal Exam GI & Abdominal Exam: Normal Bowel Sounds - Rectal Exam Rectal Exam: Deferred - Extremities Exam Extremities Exam: absent: Pedal Edema - Back Exam Back Exam: NORMAL INSPECTION - Skin Skin Exam: Normal Color Assessment and Plan (1) 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 will monitor output Status: Acute (2) Atrial fibrillation Assessment & Plan: rate is controlled. not on anticoagulation due to bleeding Status: Acute (3) Mitral valve regurgitation Assessment & Plan: conservative therapy Status: Chronic
--- NOTE | 2018-08-25 10:42 | CP.PCM.PN ---
Subjective - Date & Time of Evaluation Date of Evaluation: 08/25/18 Time of Evaluation: 10:44 - Subjective Subjective: DAUGHTER AT BEDSIDE--CASE DISCUSSED WITH HER S/P HEMODIALYSIS OFF BIPAP Objective - Vital Signs/Intake and Output Vital Signs (last 24 hours): Temp Pulse Resp BP Pulse Ox 98.8 F 100 H 20 115/44 L 100 08/25/18 03:00 08/25/18 07:41 08/25/18 06:00 08/25/18 06:00 08/25/18 06:00 Intake and Output: 08/25/18 08/25/18 06:59 18:59 Intake Total 378 Output Total 150 Balance 228 - Medications Medications: Current Medications Acetaminophen (Tylenol 325mg Tab) 650 mg PO Q6 PRN PRN Reason: Pain 1-10 Albuterol/Ipratropium (Duoneb 3 Mg/0.5 Mg (3 Ml) Ud) 3 ml INH RQ4 PRN PRN Reason: Shortness of Breath Last Admin: 08/22/18 01:00 Dose: 3 ml Albuterol/Ipratropium (Duoneb 3 Mg/0.5 Mg (3 Ml) Ud) 3 ml INH RTID [facility] Last Admin: 08/25/18 07:41 Dose: 3 ml Anastrozole (Arimidex 1 Mg Tab) 1 mg PO DAILY [facility] Last Admin: 08/22/18 09:00 Dose: Not Given Benzocaine/Menthol (Cepacol Sore Throat) 1 malu PO Q2 PRN PRN Reason: Sore Throat Calcium Acetate (Phoslo) 667 mg PO DAILY [facility] Last Admin: 08/22/18 10:00 Dose: Not Given Dextrose (Dextrose 50% Inj) 0 ml IV STAT PRN; Protocol PRN Reason: Hypoglycemia Protocol Dextrose (Glutose 15) 0 gm PO ONCE PRN; Protocol PRN Reason: Hypoglycemia Protocol Dimethicone (Proshield Plus Skin Protectant) 1 applic TOP Q8 [facility] Last Admin: 08/25/18 08:26 Dose: 1 applic Ergocalciferol (Drisdol 50,000 Intl Units Cap) 1 cap PO QWK [facility] Escitalopram Oxalate (Lexapro) 20 mg PO DAILY [facility] Furosemide (Lasix) 40 mg IVP BID [facility] Glucagon (Glucagen Diagnostic Kit) 0 mg IM STAT PRN; Protocol PRN Reason: Hypoglycemia Protocol Guaifenesin/Dextromethorphan (Robitussin Dm) 10 ml PO Q6 PRN PRN Reason: Cough Last Admin: 08/23/18 10:05 Dose: 10 ml Meropenem 500 mg/ Sodium (Chloride) 100 mls @ 100 mls/hr IVPB DAILY KATEY; Brandi col Last Admin: 08/24/18 09:44 Dose: 100 mls/hr Levofloxacin/Dextrose (Levaquin 500mg) 500 mg in 100 mls @ 100 mls/hr IVPB Q48H [facility]ATE[facility]; Protocol Last Admin: 08/24/18 01:32 Dose: 100 mls/hr Dobutamine HCl/Dextrose (Dobutamine/Dextrose 5% 500mg/250ml) 500 mg in 250 mls @ 4.388 mls/hr IV .Q24H [facility] Last Admin: 08/23/18 13:11 Dose: 4.388 mls/hr Insulin Detemir (Levemir) 15 units SC HS [facility] Insulin Human Lispro (Humalog) 10 units SC TIDAC [facility] Last Admin: 08/22/18 12:31 Dose: Not Given Insulin Human Regular (Humulin R) 0 units SC ACCU-CHECK [facility]; Protocol Last Admin: 08/25/18 07:19 Dose: Not Given Lactulose (Enulose) 20 gm PO TID [facility] Last Admin: 08/25/18 08:24 Dose: 20 gm Lidocaine (Lidoderm) 1 ea TD DAILY [facility] Last Admin: 08/25/18 08:25 Dose: 1 ea Losartan Potassium (Cozaar) 50 mg PO DAILY [facility] Metolazone (Zaroxolyn) 2.5 mg PO DAILY [facility] Phenol/Menthol (Phenaseptic 1.4% Throat [place]) 1 spry MT Q2 PRN PRN Reason: Pain, Mild (1-3) Last Admin: 08/23/18 15:59 Dose: 1 spray Rifaximin (Xifaxan) 550 mg PO BID [facility]; Protocol Last Admin: 08/22/18 09:07 Dose: Not Given Sitagliptin Phosphate (Januvia) 25 mg PO DAILY [facility] Last Admin: 08/22/18 09:01 Dose: Not Given Tiotropium [place] (Spiriva) 18 mcg INH DAILY [facility] Last Admin: 08/25/18 08:26 Dose: Not Given - Labs Labs: 08/25/18 05:30 08/25/18 05:30 PT 15.7 Seconds (9.8-13.1) H 08/24/18 06:45 INR 1.4 08/24/18 06:45 APTT 32.2 Seconds (25.6-37.1) 08/24/18 06:45 - Constitutional Appears: Chronically Ill - Head Exam Head Exam: ATRAUMATIC, NORMAL INSPECTION, NORMOCEPHALIC - Eye Exam Eye Exam: EOMI, Normal appearance, PERRL Pupil Exam: NORMAL ACCOMODATION, PERRL - ENT Exam ENT Exam: Mucous Membranes Moist, Normal Exam - Neck Exam Neck Exam: Full ROM, Normal Inspection. absent: Lymphadenopathy - Respiratory Exam Respiratory Exam: Decreased Breath Sounds, Prolonged Expiratory Phase, Rales, NORMAL BREATHING PATTERN - Cardiovascular Exam Cardiovascular Exam: REGULAR RHYTHM, +S1, +S2. absent: Murmur - GI/Abdominal Exam GI & Abdominal Exam: Soft, Normal Bowel Sounds. absent: Tenderness - Rectal Exam Rectal Exam: NORMAL INSPECTION - Extremities Exam Extremities Exam: Full ROM, Normal Capillary Refill, Normal Inspection. absent: Joint Swelling, Pedal Edema - Back Exam Back Exam: NORMAL INSPECTION - Neurological Exam Neurological Exam: Alert, Awake, CN II-XII Intact - Psychiatric Exam Psychiatric exam: Normal Affect, Normal Mood - Skin Skin Exam: Dry, Intact, Normal Color, Warm Assessment and Plan - Assessment and Plan (Free Text) Assessment: RESPIRATORY FAILURE REQUIRING BIPAP RX PLEURAL EFFUSION CHF VALVULAR HEART DZ RENAL FAILURE METABOLIC ENCEPHALOPATHY Plan: CONTINUE CURRENT RX
--- NOTE | 2018-08-25 11:57 | RAD ---
Date of service: 08/25/2018 HISTORY: intubated COMPARISON: Chest radiograph dated 08/24/2018. FINDINGS: LUNGS: Pulmonary vascular congestion. Right basilar atelectasis. PLEURA: Stable small to moderate right pleural effusion. CARDIOVASCULAR: Right subclavian access pacemaker redemonstrated. Aortic atherosclerotic calcifications. Cardiomediastinal silhouette stably enlarged. OSSEOUS STRUCTURES: Unchanged. VISUALIZED UPPER ABDOMEN: Normal. OTHER FINDINGS: Internal jugular access non tunneled hemodialysis catheter now present with tip at the cavoatrial junction. Left upper extremity PICC, unchanged. IMPRESSION: Interval placement of right internal jugular access non tunneled hemodialysis catheter in satisfactory position. No pneumothorax. Stable small to moderate right pleural effusion. No other significant interval change.
--- NOTE | 2018-08-25 14:39 | CP.PCM.PN ---
Subjective - Date & Time of Evaluation Date of Evaluation: 08/25/18 Time of Evaluation: 14:38 - Subjective Subjective: pt is seen and examined, follow up consult is dictated #[id number] s/p hd today Objective - Vital Signs/Intake and Output Vital Signs (last 24 hours): Temp Pulse Resp BP Pulse Ox 98.6 F 107 H 29 H 121/51 L 100 08/25/18 12:00 08/25/18 12:00 08/25/18 12:00 08/25/18 12:00 08/25/18 12:00 Intake and Output: 08/25/18 08/25/18 06:59 18:59 Intake Total 378 Output Total 150 Balance 228 - Medications Medications: Current Medications Acetaminophen (Tylenol 325mg Tab) 650 mg PO Q6 PRN PRN Reason: Pain 1-10 Albuterol/Ipratropium (Duoneb 3 Mg/0.5 Mg (3 Ml) Ud) 3 ml INH RQ4 PRN PRN Reason: Shortness of Breath Last Admin: 08/22/18 01:00 Dose: 3 ml Albuterol/Ipratropium (Duoneb 3 Mg/0.5 Mg (3 Ml) Ud) 3 ml INH RTID [facility] Last Admin: 08/25/18 13:22 Dose: 3 ml Anastrozole (Arimidex 1 Mg Tab) 1 mg PO DAILY [facility] Last Admin: 08/22/18 09:00 Dose: Not Given Benzocaine/Menthol (Cepacol Sore Throat) 1 malu PO Q2 PRN PRN Reason: Sore Throat Calcium Acetate (Phoslo) 667 mg PO DAILY [facility] Last Admin: 08/22/18 10:00 Dose: Not Given Dextrose (Dextrose 50% Inj) 0 ml IV STAT PRN; Protocol PRN Reason: Hypoglycemia Protocol Dextrose (Glutose 15) 0 gm PO ONCE PRN; Protocol PRN Reason: Hypoglycemia Protocol Dimethicone (Proshield Plus Skin Protectant) 1 applic TOP Q8 [facility] Last Admin: 08/25/18 08:26 Dose: 1 applic Ergocalciferol (Drisdol 50,000 Intl Units Cap) 1 cap PO QWK [facility] Escitalopram Oxalate (Lexapro) 20 mg PO DAILY [facility] Furosemide (Lasix) 40 mg IVP BID [facility] Glucagon (Glucagen Diagnostic Kit) 0 mg IM STAT PRN; Protocol PRN Reason: Hypoglycemia Protocol Guaifenesin/Dextromethorphan (Robitussin Dm) 10 ml PO Q6 PRN PRN Reason: Cough Last Admin: 08/23/18 10:05 Dose: 10 ml Meropenem 500 mg/ Sodium (Chloride) 100 mls @ 100 mls/hr IVPB DAILY [facility]; Protocol Last Admin: 08/24/18 09:44 Dose: 100 mls/hr Levofloxacin/Dextrose (Levaquin 500mg) 500 mg in 100 mls @ 100 mls/hr IVPB Q48H [facility]; Protocol Last Admin: 08/24/18 01:32 Dose: 100 mls/hr Dobutamine HCl/Dextrose (Dobutamine/Dextrose 5% 500mg/250ml) 500 mg in 250 mls @ 4.388 mls/hr IV .Q24H [facility] Last Admin: 08/23/18 13:11 Dose: 4.388 mls/hr Insulin Detemir (Levemir) 15 units SC HS [facility] Insulin Human Lispro (Humalog) 10 units SC TIDAC [facility] Last Admin: 08/22/18 12:31 Dose: Not Given Insulin Human Regular (Humulin R) 0 units SC ACCU-CHECK [facility]; Protocol Last Admin: 08/25/18 07:19 Dose: Not Given Lactulose (Enulose) 20 gm PO TID [facility] Last Admin: 08/25/18 08:24 Dose: 20 gm Lidocaine (Lidoderm) 1 ea TD DAILY [facility] Last Admin: 08/25/18 08:25 Dose: 1 ea Losartan Potassium (Cozaar) 50 mg PO DAILY [facility] Metolazone (Zaroxolyn) 2.5 mg PO DAILY [facility] Phenol/Menthol (Phenaseptic 1.4% Throat [place]) 1 spry MT Q2 PRN PRN Reason: Pain, Mild (1-3) Last Admin: 08/23/18 15:59 Dose: 1 spray Rifaximin (Xifaxan) 550 mg PO BID [facility]; Protocol Last Admin: 08/22/18 09:07 Dose: Not Given Sitagliptin Phosphate (Januvia) 25 mg PO DAILY [facility] Last Admin: 08/22/18 09:01 Dose: Not Given Tiotropium Ernul (Spiriva) 18 mcg INH DAILY [facility] Last Admin: 08/25/18 08:26 Dose: Not Given - Labs Labs: 08/25/18 05:30 08/25/18 05:30 PT 15.7 Seconds (9.8-13.1) H 08/24/18 06:45 INR 1.4 08/24/18 06:45 APTT 32.2 Seconds (25.6-37.1) 08/24/18 06:45
[2018-08-25] MEDS: DOBUTamine 500mg/250ml D5W 500 MG/250 ML BAG IV SCH (18:26)
[2018-08-25] MEDS: Meropenem 500 MG in Sodium Chloride 0.9% 100 ML IVPB SCH (18:27)
[2018-08-26] MEDS: levoFLOXacin 500 mg in D5W 500 MG/100 ML BAG IVPB SCH (01:00)
[2018-08-26] MEDS: Proshield Plus GEL TOP SCH ×3 (01:00→16:35)
--- NOTE | 2018-08-26 05:18 | CON ---
DATE: 08/25/2018 FOLLOWUP RENAL CONSULTATION The patient is located in room 435, bed 1. REQUESTED BY: Chintan Wayne MD REASON FOR RENAL CONSULTATION: Acute renal failure, CHF, cirrhosis of the liver, anasarca. SUBJECTIVE: Mrs. Sheth is an 82-year-old elderly female with past medical history significant for longstanding hypertension, diabetes, asthma, COPD, status post treatment for COPD with Tracleer and subsequently the patient developed cirrhosis of the liver and severe pulmonary hypertension and moderate to severe tricuspid regurgitation, was admitted on 08/04/2018 with chief complaints of cough associated with yellow sputum. The patient was treated for pneumonia and CHF and also underwent thoracentesis x2. Her hospital course complicated by worsening renal function requiring initiation of hemodialysis. The patient underwent first hemodialysis yesterday and another treatment today. The patient is not in acute distress, on BiPAP last night and the patient is on nasal cannula. The patient is not in distress. No chest pain. No palpitation. Resting comfortably. Blood pressure is more stable today on Dobutamine. PHYSICAL EXAMINATION: VITAL SIGNS: Blood pressure 128/48, pulse 105, respiration about 13, temperature 97.8, saturation 100%. Height 4 feet 11 inches and weight is 140 pounds. GENERAL: Mrs. Sheth is an 82-year-old elderly female, moderately built, moderately nourished, not in acute distress.. HEENT: Pupils normal and reactive to light and accommodation. Conjunctivae pink. Sclerae anicteric. Tongue is dry and trachea is midline. LUNGS: Symmetrical on both sides. Bilateral decreased breath sounds, right more than the left. Bilateral crackles present. CVS: [place] at the fifth intercostal space, midclavicular line. S1, S2 audible. Irregularly irregular. Systolic murmur present. ABDOMEN: Slightly protuberant, soft, tympanitic. No guarding. No rigidity. No hepatosplenomegaly. SPINDLE CARVER: The patient is awake, following simple commands, oriented x1-2. Sensory and motor system is within normal limits. Cranial nerves II to XII are intact. EXTREMITIES: No cyanosis. No clubbing. Trace edema in both lower extremities. CURRENT MEDICATIONS: Includes as follows, Cepacol throat lozenges, also dobutamine, DuoNeb inhaler, Humulin R sliding scale, Lasix on hold, Januvia on hold, Levaquin 500 mg IV every 48 hours, Meropenem 500 mg IV daily, Tylenol, and Spiriva. LABORATORY DATA: Include as follows: As of 08/25/2018; WBC of 8.5, hemoglobin 8.9, hematocrit is 26.4, platelets 25. Sodium 140, potassium 3.7, chloride 103, CO2 of 24, BUN 89, creatinine is 3, glucose is 148. Calcium 8.3, phosphorus is 3.9, magnesium 2.1, total bilirubin 2.1. AST 33, ALT 47, alkaline phosphatase 58, total protein 5, albumin is 2.4. Sputum culture positive for yeast. As of 08/22/2018, urine culture was negative and blood culture x2 negative day 4 as of 08/21/2018. ASSESSMENT AND PLAN: In summary, Mrs. Sheth is an 82-year-old elderly female with hypertension, diabetes, asthma, chronic obstructive pulmonary disease, pulmonary hypertension, atrial fibrillation, congestive heart failure, cirrhosis of the liver, status post treatment for pneumonia, also status post thoracentesis x2, with worsening renal function on hemodialysis. 1. Acute renal failure most likely secondary to multifactorial, cannot rule out acute tubular necrosis. 2. Cirrhosis of the liver. 3. Congestive heart failure with bilateral pleural effusion. 4. Thrombocytopenia. 5. Anemia status post transfusion of the platelets during dialysis and had ultrafiltration about 1 L. Continue to monitor platelets, continue dobutamine and continue IV antibiotics as well as per Infectious Disease recommendations and consider Hematology evaluation for platelets. Platelet decrease, rule out secondary to cirrhosis. Rule out heparin induced antibodies and discussed with the patient's family at bedside. Next hemodialysis, we will waller for on Monday. Thank you for allowing me to participate in your patient's care. Overall prognosis is guarded. Lalita Stovall MD
[2018-08-26 06:19] LABS: MEAN CELL VOLUME 100.5 fl (81.0-99.0); MEAN CORPUSCULAR HEMOGLOBIN 33.4 pg (27.0-31.0); MEAN CORPUSCULAR HGB CONC 33.3 g/dL (33.0-37.0); RBC 2.68 Mil/uL (3.80-5.20); RED CELL DISTRIBUTION WIDTH 15.9 % (11.5-14.5)
[2018-08-26 06:39] LABS: ALB/GLOB RATIO 0.9 (1.0-2.1); ALBUMIN 2.6 g/dL (3.5-5.0); CALCIUM 8.4 mg/dL (8.4-10.2)
[2018-08-26] MEDS: Insulin Regular 100 units/ml SC SCH ×4 (06:52→22:00)
--- NOTE | 2018-08-26 07:24 | CP.CCUPN ---
CCU Subjective - Physician Review Events Since Last Encounter (Free Text): Patient awake, lethargic, opens eyes to verbal stimuli, on O2 supplement by nasal canula, on dobutamine, no fever, events reviewed CCU Objective - Vital Signs / Intake & Output Vital Signs (Last 4 hours): Vital Signs Temp Pulse Resp BP Pulse Ox 08/26/18 07:00 90 20 145/53 L 100 08/26/18 06:00 94 H 16 136/51 L 100 08/26/18 05:00 98 H 19 140/54 L 100 08/26/18 04:00 98.2 F 98 H 19 137/47 L 100 Intake and Output (Last 8hrs): Intake & Output 08/25/18 08/26/18 08/26/18 22:59 06:59 14:59 Intake Total 18 62 Output Total 225 Balance 18 -163 Weight 132 lb Intake: IV 8 22 Oral 10 40 Output: Urine 125 Urethral (Crane) 125 Stool 100 - Physical Exam Head: Positive for: Atraumatic, Normocephalic Pupils: Positive for: PERRL Conjunctiva: Positive for: Normal Ears: Positive for: Normal Mouth: Positive for: Moist Mucous Membranes Nose (External): Positive for: Atraumatic Neck: Positive for: Normal Range of Motion Respiratory/Chest: Positive for: Rhonchi Cardiovascular: Positive for: Irregular Rhythm Abdomen: Positive for: Normal Bowel Sounds Upper Extremity: Positive for: Normal Inspection Lower Extremity: Positive for: Normal Inspection Neurological: Positive for: Other (lethergic) - Medications Active Medications: Active Medications Generic Name Dose Route Start Last Admin Trade Name Freq PRN Reason Stop Dose Admin Acetaminophen 650 mg 08/22/18 00:16 Tylenol 325mg Tab PO Q6 PRN Pain 1-10 Albuterol/Ipratropium 3 ml 08/22/18 00:16 08/22/18 01:00 Duoneb 3 Mg/0.5 Mg (3 Ml) Ud INH 3 ml RQ4 PRN Administration Shortness of Breath Albuterol/Ipratropium 3 ml 08/22/18 08:00 08/25/18 19:07 Duoneb 3 Mg/0.5 Mg (3 Ml) Ud INH 3 ml RTID [facility] Administration Anastrozole 1 mg 08/22/18 09:00 08/22/18 09:00 Arimidex 1 Mg Tab PO Not Given DAILY [facility] Benzocaine/Menthol 1 malu 08/22/18 00:16 Cepacol Sore Throat PO Q2 PRN Sore Throat Calcium Acetate 667 mg 08/22/18 09:00 08/22/18 10:00 Phoslo PO Not Given DAILY [facility] Dextrose 0 ml 08/22/18 00:16 Dextrose 50% Inj IV STAT PRN Hypoglycemia Protocol Protocol Dextrose 0 gm 08/22/18 00:16 Glutose 15 PO ONCE PRN Hypoglycemia Protocol Protocol Dimethicone 1 applic 08/22/18 01:00 08/26/18 01:00 Proshield Plus Skin Protectant TOP 1 applic Q8 [facility] Administration Ergocalciferol 1 cap 08/22/18 00:16 Drisdol 50,000 Intl Units Cap PO QWK [facility] Escitalopram Oxalate 20 mg 08/22/18 09:00 Lexapro PO DAILY [facility] Furosemide 40 mg 08/22/18 09:00 Lasix IVP BID [facility] Glucagon 0 mg 08/22/18 00:16 Glucagen Diagnostic Kit IM STAT PRN Hypoglycemia Protocol Protocol Guaifenesin/Dextromethorphan 10 ml 08/22/18 00:16 08/23/18 10:05 Robitussin Dm PO 10 ml Q6 PRN Administration Cough Meropenem 500 mg/ Sodium 100 mls @ 100 mls/hr 08/22/18 09:00 08/25/18 18:27 Chloride IVPB 100 mls/hr DAILY [facility] Administration Protocol Levofloxacin/Dextrose 500 mg in 100 mls @ 100 mls/hr 08/22/18 01:00 08/26/18 01:00 Levaquin 500mg IVPB 100 mls/hr Q48H [facility] Administration Protocol Dobutamine HCl/Dextrose 500 mg in 250 mls @ 4.388 mls/hr 08/23/18 12:24 08/25/18 18:26 Dobutamine/Dextrose 5% 500mg/250ml IV 4.388 mls/hr .Q24H [facility] Administration 2.5 MCG/KG/MIN Insulin Detemir 15 units 08/22/18 22:00 Levemir SC HS [facility] Insulin Human Lispro 10 units 08/22/18 07:30 08/22/18 12:31 Humalog SC Not Given TIDAC [facility] Insulin Human Regular 0 units 08/22/18 23:00 08/26/18 06:52 Humulin R SC 1 unit ACCU-CHECK [facility] Administration Protocol Lactulose 20 gm 08/22/18 09:00 08/25/18 08:24 Enulose PO 20 gm TID [facility] Administration Lidocaine 1 ea 08/22/18 09:00 08/25/18 08:25 Lidoderm TD 1 ea DAILY [facility] Administration Losartan Potassium 50 mg 08/22/18 09:00 Cozaar PO DAILY [facility] Metolazone 2.5 mg 08/22/18 09:00 Zaroxolyn PO DAILY [facility] Phenol/Menthol 1 spry 08/23/18 15:10 08/23/18 15:59 Phenaseptic 1.4% Throat [place] 1 spray Q2 PRN Administration Pain, Mild (1-3) Rifaximin 550 mg 08/22/18 09:00 08/22/18 09:07 Xifaxan PO Not Given BID [facility] Protocol Sitagliptin Phosphate 25 mg 08/22/18 09:00 08/22/18 09:01 Januvia PO Not Given DAILY [facility] Tiotropium [place] 18 mcg 08/22/18 09:00 08/25/18 08:26 Spiriva INH Not Given DAILY [facility] - Patient Studies Lab Studies: Microbiology Studies 08/21/18 13:30 Gram Stain - Final Pleural Fluid Body Fluid Culture - Final No growth. 08/21/18 14:05 Blood Culture - Preliminary Blood-Venous NO GROWTH AFTER 4 DAYS 08/22/18 06:16 Gram Stain - Final Sputum Sputum Culture - Final Yeast Species 08/21/18 10:29 Blood Culture - Preliminary Blood-Venous NO GROWTH AFTER 4 DAYS Lab Studies 08/26/18 08/26/18 08/26/18 Range/Units 05:30 05:30 04:53 WBC 8.0 (4.8-10.8) K/uL RBC 2.68 L (3.80-5.20) Mil/uL Hgb 9.0 L (12.0-16.0) g/dL Hct 27.0 L (34.0-47.0) % MCV 100.5 H (81.0-99.0) fl MCH 33.4 H (27.0-31.0) pg MCHC 33.3 (33.0-37.0) g/dL RDW 15.9 H (11.5-14.5) % Plt Count 34 L (130-400) K/uL MPV (7.2-11.7) fl Neut % (Auto) (50.0-75.0) % Lymph % (Auto) (20.0-40.0) % [place] % (Auto) (0.0-10.0) % Eos % (Auto) (0.0-4.0) % Baso % (Auto) (0.0-2.0) % Neut # (Auto) (1.8-7.0) K/uL Lymph # (Auto) (1.0-4.3) K/uL [place] # (Auto) (0.0-0.8) K/uL Eos # (Auto) (0.0-0.7) K/uL Baso # (Auto) (0.0-0.2) K/uL Sodium 138 (132-148) mmol/l Potassium 3.8 (3.6-5.0) MMOL/L Chloride 100 (98-107) mmol/L Carbon Dioxide 27 (22-30) mmol/L Anion Gap 15 (10-20) BUN 54 H (7-17) mg/dl Creatinine 2.0 H (0.7-1.2) mg/dl Est GFR ( Amer) 29 Est GFR (Non-Af Amer) 24 POC Glucose (mg/dL) 174 H (65-110) mg/dL Random Glucose 151 H (65-105) mg/dL Calcium 8.4 (8.4-10.2) mg/dL Phosphorus 3.4 (2.5-4.5) mg/dl Magnesium 2.1 (1.6-2.3) MG/DL Total Bilirubin 2.1 H (0.2-1.3) mg/dl AST 41 H D (14-36) U/L ALT 49 (9-52) U/L Alkaline Phosphatase 65 (38-126) U/L Total Protein 5.6 L (6.3-8.2) G/DL Albumin 2.6 L (3.5-5.0) g/dL Globulin 3.0 (2.2-3.9) gm/dL Albumin/Globulin Ratio 0.9 L (1.0-2.1) 01/19/19 01/19/19 01/19/19 Range/Units 21:59 16:41 11:30 WBC (4.8-10.8) K/uL RBC (3.80-5.20) Mil/uL Hgb (12.0-16.0) g/dL Hct (34.0-47.0) % MCV (81.0-99.0) fl MCH (27.0-31.0) pg MCHC (33.0-37.0) g/dL RDW (11.5-14.5) % Plt Count (130-400) K/uL MPV (7.2-11.7) fl Neut % (Auto) (50.0-75.0) % Lymph % (Auto) (20.0-40.0) % [place] % (Auto) (0.0-10.0) % Eos % (Auto) (0.0-4.0) % Baso % (Auto) (0.0-2.0) % Neut # (Auto) (1.8-7.0) K/uL Lymph # (Auto) (1.0-4.3) K/uL [place] # (Auto) (0.0-0.8) K/uL Eos # (Auto) (0.0-0.7) K/uL Baso # (Auto) (0.0-0.2) K/uL Sodium (132-148) mmol/l Potassium (3.6-5.0) MMOL/L Chloride (98-107) mmol/L Carbon Dioxide (22-30) mmol/L Anion Gap (10-20) BUN (7-17) mg/dl Creatinine (0.7-1.2) mg/dl Est GFR ( Amer) Est GFR (Non-Af Amer) POC Glucose (mg/dL) 160 H 143 H 185 H (65-110) mg/dL Random Glucose (65-105) mg/dL Calcium (8.4-10.2) mg/dL Phosphorus (2.5-4.5) mg/dl Magnesium (1.6-2.3) MG/DL Total Bilirubin (0.2-1.3) mg/dl AST (14-36) U/L ALT (9-52) U/L Alkaline Phosphatase (38-126) U/L Total Protein (6.3-8.2) G/DL Albumin (3.5-5.0) g/dL Globulin (2.2-3.9) gm/dL Albumin/Globulin Ratio (1.0-2.1) 08/25/18 08/25/18 Range/Units 05:30 05:30 WBC 8.5 (4.8-10.8) K/uL RBC 2.64 L (3.80-5.20) Mil/uL Hgb 8.9 L (12.0-16.0) g/dL Hct 26.4 L (34.0-47.0) % MCV 100.3 H (81.0-99.0) fl MCH 33.7 H (27.0-31.0) pg MCHC 33.6 (33.0-37.0) g/dL RDW 15.5 H (11.5-14.5) % Plt Count 25 L* D (130-400) K/uL MPV 9.1 (7.2-11.7) fl Neut % (Auto) 86.2 H (50.0-75.0) % Lymph % (Auto) 4.7 L (20.0-40.0) % [place] % (Auto) 8.0 (0.0-10.0) % Eos % (Auto) 0.9 (0.0-4.0) % Baso % (Auto) 0.2 (0.0-2.0) % Neut # (Auto) 7.3 H (1.8-7.0) K/uL Lymph # (Auto) 0.4 L (1.0-4.3) K/uL [place] # (Auto) 0.7 (0.0-0.8) K/uL Eos # (Auto) 0.1 (0.0-0.7) K/uL Baso # (Auto) 0.0 (0.0-0.2) K/uL Sodium 140 (132-148) mmol/l Potassium 3.7 (3.6-5.0) MMOL/L Chloride 103 (98-107) mmol/L Carbon Dioxide 24 (22-30) mmol/L Anion Gap 17 (10-20) BUN 89 H (7-17) mg/dl Creatinine 3.0 H (0.7-1.2) mg/dl Est GFR ( Amer) 18 Est GFR (Non-Af Amer) 15 POC Glucose (mg/dL) (65-110) mg/dL Random Glucose 148 H (65-105) mg/dL Calcium 8.3 L (8.4-10.2) mg/dL Phosphorus 3.9 (2.5-4.5) mg/dl Magnesium 2.1 (1.6-2.3) MG/DL Total Bilirubin 2.1 H (0.2-1.3) mg/dl AST 33 (14-36) U/L ALT 47 (9-52) U/L Alkaline Phosphatase 58 (38-126) U/L Total Protein 5.2 L (6.3-8.2) G/DL Albumin 2.4 L (3.5-5.0) g/dL Globulin 2.8 (2.2-3.9) gm/dL Albumin/Globulin Ratio 0.9 L (1.0-2.1) Laboratory Results - last 24 hr 08/25/18 08/25/18 08/25/18 05:30 05:30 11:30 WBC 8.5 RBC 2.64 L Hgb 8.9 L Hct 26.4 L MCV 100.3 H MCH 33.7 H MCHC 33.6 RDW 15.5 H Plt Count 25 L* D MPV 9.1 Neut % (Auto) 86.2 H Lymph % (Auto) 4.7 L [place] % (Auto) 8.0 Eos % (Auto) 0.9 Baso % (Auto) 0.2 Neut # (Auto) 7.3 H Lymph # (Auto) 0.4 L [place] # (Auto) 0.7 Eos # (Auto) 0.1 Baso # (Auto) 0.0 Sodium 140 Potassium 3.7 Chloride 103 Carbon Dioxide 24 Anion Gap 17 BUN 89 H Creatinine 3.0 H Est GFR ( Amer) 18 Est GFR (Non-Af Amer) 15 POC Glucose (mg/dL) 185 H Random Glucose 148 H Calcium 8.3 L Phosphorus 3.9 Magnesium 2.1 Total Bilirubin 2.1 H AST 33 ALT 47 Alkaline Phosphatase 58 Total Protein 5.2 L Albumin 2.4 L Globulin 2.8 Albumin/Globulin Ratio 0.9 L 08/25/18 08/25/18 08/26/18 16:41 21:59 04:53 WBC RBC Hgb Hct MCV MCH MCHC RDW Plt Count MPV Neut % (Auto) Lymph % (Auto) [place] % (Auto) Eos % (Auto) Baso % (Auto) Neut # (Auto) Lymph # (Auto) [place] # (Auto) Eos # (Auto) Baso # (Auto) Sodium Potassium Chloride Carbon Dioxide Anion Gap BUN Creatinine Est GFR ( Amer) Est GFR (Non-Af Amer) POC Glucose (mg/dL) 143 H 160 H 174 H Random Glucose Calcium Phosphorus Magnesium Total Bilirubin AST ALT Alkaline Phosphatase Total Protein Albumin Globulin Albumin/Globulin Ratio 08/26/18 08/26/18 05:30 05:30 WBC 8.0 RBC 2.68 L Hgb 9.0 L Hct 27.0 L MCV 100.5 H MCH 33.4 H MCHC 33.3 RDW 15.9 H Plt Count 34 L MPV Neut % (Auto) Lymph % (Auto) [place] % (Auto) Eos % (Auto) Baso % (Auto) Neut # (Auto) Lymph # (Auto) [place] # (Auto) Eos # (Auto) Baso # (Auto) Sodium 138 Potassium 3.8 Chloride 100 Carbon Dioxide 27 Anion Gap 15 BUN 54 H Creatinine 2.0 H Est GFR ( Amer) 29 Est GFR (Non-Af Amer) 24 POC Glucose (mg/dL) Random Glucose 151 H Calcium 8.4 Phosphorus 3.4 Magnesium 2.1 Total Bilirubin 2.1 H AST 41 H D ALT 49 Alkaline Phosphatase 65 Total Protein 5.6 L Albumin 2.6 L Globulin 3.0 Albumin/Globulin Ratio 0.9 L Radiology Impressions: Radiology Impressions Chest X-Ray 08/25/18 05:00 IMPRESSION: Interval placement of right internal jugular access non tunneled hemodialysis catheter in satisfactory position. No pneumothorax. Stable small to moderate right pleural effusion. No other significant interval change. Fingerstick Blood Sugar Results: 174 Critical Care Progress Note - Nutrition Nutrition: Nutrition Category Date Time Status Dysphagia/Modified Consistency Diet [DIET] Diets 08/25/18 Breakfast Active Assessment/Plan - Assessment and Plan (Free Text) Assessment: A/P Respiratory failure, pleural effusion, ?pneumonia, renal failure, thrombocytopenia, abdominal wall hematoma, hyponatremia improving, metabolic encephalopathy, chronic A Fib - O2 suoolement - Intubation if worsen - Antibiotics - Transfusion as needed - Dialysis as per renal Critical care 35 min
[2018-08-26] MEDS: Albuterol-Ipratrop 3 mg / 0.5 (3 ml) UD INH SCH ×3 (07:55→19:15)
[2018-08-26] MEDS: Tiotropium 18 mcg Cap For Inhalation INH SCH (09:18)
[2018-08-26] MEDS: Lidocaine 5% Patch TD SCH (09:19)
[2018-08-26] MEDS: Meropenem 500 MG in Sodium Chloride 0.9% 100 ML IVPB SCH (09:51)
--- NOTE | 2018-08-26 11:12 | RAD ---
Date of service: 08/26/2018 PROCEDURE: CHEST RADIOGRAPH, 1 VIEW HISTORY: sob COMPARISON: Chest radiograph dated 08/25/2018. FINDINGS: LUNGS: Pulmonary vascular congestion. Right basilar atelectasis. PLEURA: Small right pleural effusion. CARDIOVASCULAR: Right subclavian access pacemaker redemonstrated. Aortic atherosclerotic calcifications. Cardiomediastinal silhouette stably enlarged OSSEOUS STRUCTURES: Unchanged. VISUALIZED UPPER ABDOMEN: Normal. OTHER FINDINGS: Right internal jugular access non tunneled hemodialysis catheter, unchanged. Left upper extremity PICC, unchanged. IMPRESSION: Stable pulmonary vascular congestion and small right pleural effusion. Stable tubes and lines. No significant interval change.
--- NOTE | 2018-08-26 13:48 | CP.PCM.PN ---
Subjective - Date & Time of Evaluation Date of Evaluation: 08/26/18 Time of Evaluation: 09:00 - Subjective Subjective: 82 year old female with chronic atrial fibrillation, PPM, HTN, mitral regurgitation , cirrhosis presents with dyspnea Was being treated for CHF/ Pneumonia- developed large effusion which was drained then developed hypotension and acute renal failure requiring HD Awake and alert but weak Daughter by the bedside Objective - Vital Signs/Intake and Output Vital Signs (last 24 hours): Temp Pulse Resp BP Pulse Ox 98.1 F 99 H 18 123/51 L 100 08/26/18 12:00 08/26/18 12:00 08/26/18 12:00 08/26/18 12:00 08/26/18 12:00 Intake and Output: 08/26/18 08/26/18 06:59 18:59 Intake Total 80 274 Output Total 225 Balance -145 274 - Medications Medications: Current Medications Acetaminophen (Tylenol 325mg Tab) 650 mg PO Q6 PRN PRN Reason: Pain 1-10 Albuterol/Ipratropium (Duoneb 3 Mg/0.5 Mg (3 Ml) Ud) 3 ml INH RQ4 PRN PRN Reason: Shortness of Breath Last Admin: 08/22/18 01:00 Dose: 3 ml Albuterol/Ipratropium (Duoneb 3 Mg/0.5 Mg (3 Ml) Ud) 3 ml INH RTID [facility] Last Admin: 08/26/18 13:29 Dose: 3 ml Anastrozole (Arimidex 1 Mg Tab) 1 mg PO DAILY [facility] Last Admin: 08/22/18 09:00 Dose: Not Given Benzocaine/Menthol (Cepacol Sore Throat) 1 malu PO Q2 PRN PRN Reason: Sore Throat Calcium Acetate (Phoslo) 667 mg PO DAILY [facility] Last Admin: 08/22/18 10:00 Dose: Not Given Dextrose (Dextrose 50% Inj) 0 ml IV STAT PRN; Protocol PRN Reason: Hypoglycemia Protocol Dextrose (Glutose 15) 0 gm PO ONCE PRN; Protocol PRN Reason: Hypoglycemia Protocol Dimethicone (Proshield Plus Skin Protectant) 1 applic TOP Q8 [facility] Last Admin: 08/26/18 09:18 Dose: 1 applic Ergocalciferol (Drisdol 50,000 Intl Units Cap) 1 cap PO QWK [facility] Escitalopram Oxalate (Lexapro) 20 mg PO DAILY [facility] Furosemide (Lasix) 40 mg IVP BID [facility] Glucagon (Glucagen Diagnostic Kit) 0 mg IM STAT PRN; Protocol PRN Reason: Hypoglycemia Protocol Guaifenesin/Dextromethorphan (Robitussin Dm) 10 ml PO Q6 PRN PRN Reason: Cough Last Admin: 08/23/18 10:05 Dose: 10 ml Meropenem 500 mg/ Sodium (Chloride) 100 mls @ 100 mls/hr IVPB DAILY [facility]; Protocol Last Admin: 08/26/18 09:51 Dose: 100 mls/hr Levofloxacin/Dextrose (Levaquin 500mg) 500 mg in 100 mls @ 100 mls/hr IVPB Q48H [facility]; Protocol Last Admin: 08/26/18 01:00 Dose: 100 mls/hr Dobutamine HCl/Dextrose (Dobutamine/Dextrose 5% 500mg/250ml) 500 mg in 250 mls @ 4.388 mls/hr IV .Q24H [facility] Last Admin: 08/25/18 18:26 Dose: 4.388 mls/hr Insulin Detemir (Levemir) 15 units SC HS [facility] Insulin Human Lispro (Humalog) 10 units SC TIDAC [facility] Last Admin: 08/22/18 12:31 Dose: Not Given Insulin Human Regular (Humulin R) 0 units SC ACCU-CHECK [facility]; Protocol Last Admin: 08/26/18 06:52 Dose: 1 unit Lactulose (Enulose) 20 gm PO TID [facility] Last Admin: 08/25/18 08:24 Dose: 20 gm Lidocaine (Lidoderm) 1 ea TD DAILY [facility] Last Admin: 08/26/18 09:19 Dose: 1 ea Losartan Potassium (Cozaar) 50 mg PO DAILY [facility] Metolazone (Zaroxolyn) 2.5 mg PO DAILY [facility] Phenol/Menthol (Phenaseptic 1.4% Throat [place]) 1 spry MT Q2 PRN PRN Reason: Pain, Mild (1-3) Last Admin: 08/23/18 15:59 Dose: 1 spray Rifaximin (Xifaxan) 550 mg PO BID [facility]; Protocol Last Admin: 08/22/18 09:07 Dose: Not Given Sitagliptin Phosphate (Januvia) 25 mg PO DAILY [facility] Last Admin: 08/22/18 09:01 Dose: Not Given Tiotropium [place] (Spiriva) 18 mcg INH DAILY [facility] Last Admin: 08/26/18 09:18 Dose: Not Given - Labs Labs: 08/26/18 05:30 08/26/18 05:30 PT 15.7 Seconds (9.8-13.1) H 08/24/18 06:45 INR 1.4 08/24/18 06:45 APTT 32.2 Seconds (25.6-37.1) 08/24/18 06:45 - Constitutional Appears: Non-toxic, Cachectic, Chronically Ill - Head Exam Head Exam: NORMOCEPHALIC - Eye Exam Eye Exam: absent: Scleral icterus - ENT Exam ENT Exam: Mucous Membranes Dry, Normal External Ear Exam - Neck Exam Neck Exam: absent: Lymphadenopathy - Respiratory Exam Respiratory Exam: Decreased Breath Sounds, Prolonged Expiratory Phase, Rhonchi - Cardiovascular Exam Cardiovascular Exam: REGULAR RHYTHM - GI/Abdominal Exam GI & Abdominal Exam: Distended, Soft - Rectal Exam Rectal Exam: Deferred - Exam Exam: NORMAL INSPECTION - Extremities Exam Extremities Exam: Full ROM. absent: Pedal Edema Additional comments: + edema right uper extrem - Back Exam Back Exam: absent: CVA tenderness (L), CVA tenderness (R) - Neurological Exam Neurological Exam: Alert, Awake - Psychiatric Exam Psychiatric exam: Depressed - Skin Skin Exam: Dry Assessment and Plan (1) CHF (congestive heart failure) Status: Acute (2) HCAP (healthcare-associated pneumonia) Status: Acute (3) Pleural effusion Status: Acute (4) Acute diastolic heart failure due to valvular disease Status: Acute (5) Acute dyspnea Status: Acute (6) Acute renal failure Status: Acute - Assessment and Plan (Free Text) Assessment: 82 year old female with chronic atrial fibrillation, PPM, HTN, mitral regurgitation , cirrhosis presents with dyspnea Was being treated for CHF/ Pneumonia- developed large effusion which was drained then developed hypotension and acute renal failure requiring HD No new + cultures- WBC down to 8 K IV antibiotics in progress consider venous doppler upper extrem
--- NOTE | 2018-08-26 16:28 | US ---
Date of service: 08/26/2018 PROCEDURE: Right Upper Extremity Venous Doppler HISTORY: right arm swelling COMPARISON: Right upper extremity venous duplex ultrasound performed 10/10/2014. TECHNIQUE: Right upper extremity deep veins, including the subclavian, axillary and brachial veins, were evaluated flow, compressibility and respiratory phasicity. Internal jugular vein unable to be assessed due to overlying bandage. Cephalic, basilic, radial and ulnar veins were also evaluated. FINDINGS: Normal flow, compressibility and respiratory phasicity was observed in the right upper extremity deep veins. IMPRESSION: No evidence of deep venous thrombosis.
--- NOTE | 2018-08-26 17:01 | CP.PCM.PN ---
Subjective - Date & Time of Evaluation Date of Evaluation: 08/24/18 Time of Evaluation: 11:00 - Subjective Subjective: patient seen and examined at bedside. Interim events noted spoke with family, answered all questions available diagnostic data reviewed Objective Vital Signs Stable - Constitutional Appears: Non-toxic, Chronically Ill - Respiratory Exam Respiratory Exam: NORMAL BREATHING PATTERN with supplemental o2 - Cardiovascular Exam Cardiovascular Exam: +S1, +S2 - GI/Abdominal Exam GI & Abdominal Exam: Soft, bruising stable, not worsened - Skin Skin Exam: Normal Color, Warm Assessment and Plan dx leukocytosis chapo valvular heart disease chf pleural effusion s/p thoracentesis thrombocytopenia plan available diagnostic data reviewed ID, Nephro, Cardio, Pulmonary following monitor labs monitor vitals property developer recommendations appreciated consult hematology HD rest of plan as ordered
--- NOTE | 2018-08-26 17:13 | CP.PCM.PN ---
Subjective - Date & Time of Evaluation Date of Evaluation: 08/25/18 Time of Evaluation: 11:00 - Subjective Subjective: patient seen and examined at bedside. Interim events noted spoke with family, answered all questions improving with HD available diagnostic data reviewed Objective Vital Signs Stable - Constitutional Appears: Chronically Ill - Respiratory Exam Respiratory Exam: NORMAL BREATHING PATTERN with supplemental o2 - Cardiovascular Exam Cardiovascular Exam: +S1, +S2 - GI/Abdominal Exam GI & Abdominal Exam: Soft, bruising stable, not worsened - Skin Skin Exam: Normal Color, Warm Assessment and Plan dx chapo valvular heart disease chf pleural effusion s/p thoracentesis thrombocytopenia plan available diagnostic data reviewed ID, Nephro, Cardio, Heme, Pulmonary following monitor labs monitor vitals photographic specialist recommendations appreciated HD rest of plan as ordered
--- NOTE | 2018-08-26 17:15 | CP.PCM.PN ---
Subjective - Date & Time of Evaluation Date of Evaluation: 08/26/18 Time of Evaluation: 12:00 - Subjective Subjective: patient seen and examined at bedside. Interim events noted spoke with family, answered all questions improving with HD available diagnostic data reviewed Objective Vital Signs Stable - Constitutional Appears: Chronically Ill - Respiratory Exam Respiratory Exam: NORMAL BREATHING PATTERN with supplemental o2 - Cardiovascular Exam Cardiovascular Exam: +S1, +S2 - GI/Abdominal Exam GI & Abdominal Exam: Soft, bruising stable, not worsened - Skin Skin Exam: Normal Color, Warm Assessment and Plan dx chapo valvular heart disease chf pleural effusion s/p thoracentesis thrombocytopenia plan available diagnostic data reviewed ID, Nephro, Cardio, Heme, Pulmonary following monitor labs monitor vitals compensation associate recommendations appreciated HD rest of plan as ordered
[2018-08-26] MEDS: Phenol 1.4% Throat Spray MT PRN ×3 (17:55→22:34)
[2018-08-27] MEDS: Proshield Plus GEL TOP SCH ×3 (01:30→16:30)
[2018-08-27 05:56] LABS: BASO % 0.3 % (0.0-2.0); EOS # 0.3 K/uL (0.0-0.7); EOS % 3.5 % (0.0-4.0); HEMOGLOBIN 9.5 g/dL (12.0-16.0); LYMPH # 0.5 K/uL (1.0-4.3); LYMPH % 5.6 % (20.0-40.0); MEAN CELL VOLUME 100.4 fl (81.0-99.0); MEAN CORPUSCULAR HEMOGLOBIN 34.8 pg (27.0-31.0); MEAN CORPUSCULAR HGB CONC 34.6 g/dL (33.0-37.0); MEAN PLATELET VOLUME 9.4 fl (7.2-11.7); MONO # 0.8 K/uL (0.0-0.8); NEUT # 7.1 K/uL (1.8-7.0); NEUT % 81.6 % (50.0-75.0); NRBC % 0.1 % (0.0-0.0); RBC 2.72 Mil/uL (3.80-5.20); RED CELL DISTRIBUTION WIDTH 15.9 % (11.5-14.5); WHITE BLOOD COUNT 8.8 K/uL (4.8-10.8)
[2018-08-27 06:31] LABS: ALB/GLOB RATIO 0.8 (1.0-2.1); ALBUMIN 2.5 g/dL (3.5-5.0); CALCIUM 9.1 mg/dL (8.4-10.2)
[2018-08-27] MEDS: Insulin Regular 100 units/ml SC SCH ×4 (06:32→21:45)
[2018-08-27 07:43] LABS: HEPATITIS B SURFACE AG Negative (NEGATIVE)
[2018-08-27 07:48] LABS: HEPATITIS B CORE AB NEGATIVE (NEGATIVE)
[2018-08-27] MEDS: Albuterol-Ipratrop 3 mg / 0.5 (3 ml) UD INH SCH ×3 (07:50→19:22)
[2018-08-27 08:01] LABS: HEPATITIS C ANTIBODY NEGATIVE (NEGATIVE)
--- NOTE | 2018-08-27 08:04 | CP.PCM.PN ---
Subjective - Date & Time of Evaluation Date of Evaluation: 08/27/18 Time of Evaluation: 08:04 - Subjective Subjective: MORE AWAKE AND ALERT TODAY NO SOB/CHEST PAINS Objective - Vital Signs/Intake and Output Vital Signs (last 24 hours): Temp Pulse Resp BP Pulse Ox 98.0 F 97 H 24 113/52 L 100 08/27/18 07:59 08/27/18 07:59 08/27/18 07:59 08/27/18 07:59 08/27/18 07:59 Intake and Output: 08/27/18 08/27/18 06:59 18:59 Intake Total 194 Output Total 300 Balance -106 - Medications Medications: Current Medications Acetaminophen (Tylenol 325mg Tab) 650 mg PO Q6 PRN PRN Reason: Pain 1-10 Albuterol/Ipratropium (Duoneb 3 Mg/0.5 Mg (3 Ml) Ud) 3 ml INH RQ4 PRN PRN Reason: Shortness of Breath Last Admin: 08/22/18 01:00 Dose: 3 ml Albuterol/Ipratropium (Duoneb 3 Mg/0.5 Mg (3 Ml) Ud) 3 ml INH RTID [facility] Last Admin: 08/27/18 07:50 Dose: 3 ml Anastrozole (Arimidex 1 Mg Tab) 1 mg PO DAILY [facility] Last Admin: 08/22/18 09:00 Dose: Not Given Benzocaine/Menthol (Cepacol Sore Throat) 1 malu PO Q2 PRN PRN Reason: Sore Throat Calcium Acetate (Phoslo) 667 mg PO DAILY [facility] Last Admin: 08/22/18 10:00 Dose: Not Given Dextrose (Dextrose 50% Inj) 0 ml IV STAT PRN; Protocol PRN Reason: Hypoglycemia Protocol Dextrose (Glutose 15) 0 gm PO ONCE PRN; Protocol PRN Reason: Hypoglycemia Protocol Dimethicone (Proshield Plus Skin Protectant) 1 applic TOP Q8 [facility] Last Admin: 08/27/18 01:30 Dose: 1 applic Ergocalciferol (Drisdol 50,000 Intl Units Cap) 1 cap PO QWK [facility] Escitalopram Oxalate (Lexapro) 20 mg PO DAILY [facility] Famotidine (Pepcid) 20 mg PO BID [facility] Last Admin: 08/26/18 16:33 Dose: 20 mg Furosemide (Lasix) 40 mg IVP BID [facility] Glucagon (Glucagen Diagnostic Kit) 0 mg IM STAT PRN; Protocol PRN Reason: Hypoglycemia Protocol Guaifenesin/Dextromethorphan (Robitussin Dm) 10 ml PO Q6 PRN PRN Reason: Cough Last Admin: 08/23/18 10:05 Dose: 10 ml Meropenem 500 mg/ Sodium (Chloride) 100 mls @ 100 mls/hr IVPB DAILY [facility]; Protocol Last Admin: 08/26/18 09:51 Dose: 100 mls/hr Levofloxacin/Dextrose (Levaquin 500mg) 500 mg in 100 mls @ 100 mls/hr IVPB Q48H [facility]; Protocol Last Admin: 08/26/18 01:00 Dose: 100 mls/hr Diltiazem HCl 125 mg/ Sodium (Chloride) 125 mls @ 5 mls/hr IV .Q24H [facility]; Protocol Stop: 08/27/18 20:17 Last Admin: 08/26/18 20:54 Dose: 5 mg/hr, 5 mls/hr Insulin Detemir (Levemir) 15 units SC HS [facility] Insulin Human Lispro (Humalog) 10 units SC TIDAC [facility] Last Admin: 08/22/18 12:31 Dose: Not Given Insulin Human Regular (Humulin R) 0 units SC ACCU-CHECK [facility]; Protocol Last Admin: 08/27/18 06:32 Dose: 1 unit Lactulose (Enulose) 20 gm PO TID [facility] Last Admin: 08/25/18 08:24 Dose: 20 gm Lidocaine (Lidoderm) 1 ea TD DAILY [facility] Last Admin: 08/26/18 09:19 Dose: 1 ea Lidocaine HCl (Lidocaine 2% Viscous) 15 ml PO Q8H PRN PRN Reason: dysphagia Losartan Potassium (Cozaar) 50 mg PO DAILY [facility] Metolazone (Zaroxolyn) 2.5 mg PO DAILY [facility] Phenol/Menthol (Phenaseptic 1.4% Throat [place]) 1 spry MT Q2 PRN PRN Reason: Pain, Mild (1-3) Last Admin: 08/26/18 22:34 Dose: 1 spray Rifaximin (Xifaxan) 550 mg PO BID [facility]; Protocol Last Admin: 08/22/18 09:07 Dose: Not Given Sitagliptin Phosphate (Januvia) 25 mg PO DAILY [facility] Last Admin: 08/22/18 09:01 Dose: Not Given Tiotropium [place] (Spiriva) 18 mcg INH DAILY [facility] Last Admin: 08/26/18 09:18 Dose: Not Given - Labs Labs: 08/27/18 04:30 08/27/18 04:30 PT 15.7 Seconds (9.8-13.1) H 08/24/18 06:45 INR 1.4 08/24/18 06:45 APTT 32.2 Seconds (25.6-37.1) 08/24/18 06:45 - Constitutional Appears: No Acute Distress, Chronically Ill - Head Exam Head Exam: ATRAUMATIC, NORMAL INSPECTION, NORMOCEPHALIC - Eye Exam Eye Exam: EOMI, Normal appearance, PERRL Pupil Exam: NORMAL ACCOMODATION, PERRL - ENT Exam ENT Exam: Mucous Membranes Moist, Normal Exam - Neck Exam Neck Exam: Full ROM, Normal Inspection. absent: Lymphadenopathy - Respiratory Exam Respiratory Exam: Decreased Breath Sounds, Prolonged Expiratory Phase, NORMAL BREATHING PATTERN - Cardiovascular Exam Cardiovascular Exam: Irregular Rhythm, +S1, +S2. absent: Murmur - GI/Abdominal Exam GI & Abdominal Exam: Soft, Normal Bowel Sounds. absent: Tenderness - Rectal Exam Rectal Exam: NORMAL INSPECTION - Extremities Exam Extremities Exam: Full ROM, Normal Capillary Refill, Normal Inspection. absent: Joint Swelling, Pedal Edema - Back Exam Back Exam: NORMAL INSPECTION - Neurological Exam Neurological Exam: Alert, Awake, CN II-XII Intact, Oriented x3 - Psychiatric Exam Psychiatric exam: Normal Affect, Normal Mood - Skin Skin Exam: Dry, Intact, Normal Color, Warm Assessment and Plan - Assessment and Plan (Free Text) Assessment: RESPIRATORY FAILURE IMPROVING WITH DIALYSIS [facility] CHF VALVULAR HEART DZ ATRIAL FIB Plan: CONTINUE CURRENT RX REPEAT CXR
[2018-08-27] MEDS: Tiotropium 18 mcg Cap For Inhalation INH SCH (08:17)
[2018-08-27] MEDS: Lidocaine 5% Patch TD SCH (08:17)
[2018-08-27] MEDS: Meropenem 500 MG in Sodium Chloride 0.9% 100 ML IVPB SCH (10:15)
[2018-08-27] MEDS: Phenol 1.4% Throat Spray MT PRN ×2 (10:16→20:32)
[2018-08-27] MEDS: EPOETIN ALFA 10,000 UNIT/ML ML IV SCH (11:19)
--- NOTE | 2018-08-27 12:21 | CP.CCUPN ---
CCU Subjective - Physician Review Events Since Last Encounter (Free Text): 08/27/18 12:21 The patient was Seen/interviewed and examined by me at the bedside during ICU round, Medical records reviewed and Management issues were discussed and formulated with the house staff. Events reviewed 82 Years old Female with PMHx of hypertension, hypothyroidism, hyperlipidemia, diabetes, atrial fibrillation and asthma/COPD. Who intially presents to ER 08/04 for evaluation of shortness of breath associated with cough and decreased appetite onset 2 days. Admitted with acute congestive heart failure Transferred to the ICU for management of Acute resp insuff secondary to CHF, Pneumonia with Pleural effusion 08/15, she underwent US guided right thoracentesis for Right pleural effusion 1.45 liters of straw colored fluid Removed 08/21, she underwent US guided right thoracentesis for Right pleural effusion 1200 cc of gonzales colored fluid Removed Patient more awake, was lethargic lethargic over the weekend, opens eyes to verbal stimuli. Off BIPAP, FIO2, Off dobutamine drip Started on Cardiazem drip for A-Fib with RVR CCU Objective - Vital Signs / Intake & Output Vital Signs (Last 4 hours): Vital Signs Temp Pulse Resp BP Pulse Ox 08/27/18 12:07 97.3 F L 96 H 22 132/54 L 100 08/27/18 11:00 98 H 22 132/54 L 97 08/27/18 10:00 102 H 15 142/63 100 08/27/18 09:00 92 H 14 142/63 98 Intake and Output (Last 8hrs): Intake & Output 08/26/18 08/27/18 08/27/18 22:59 06:59 14:59 Intake Total 216 136 190 Output Total 350 300 Balance -134 -164 190 Weight 132 lb 7 oz Intake: IV 8 16 20 Intake, Piggyback 8 Oral 200 120 170 Output: Urine 250 300 Urethral (Crane) 300 Urine, Voided 250 Stool 100 0 - Physical Exam Head: Positive for: Atraumatic, Normocephalic Pupils: Positive for: PERRL Conjunctiva: Positive for: Normal Ears: Positive for: Normal Mouth: Positive for: Moist Mucous Membranes Nose (External): Positive for: Atraumatic Neck: Positive for: Normal Range of Motion Respiratory/Chest: Positive for: Rhonchi Cardiovascular: Positive for: Irregular Rhythm Abdomen: Positive for: Normal Bowel Sounds Upper Extremity: Positive for: Normal Inspection Lower Extremity: Positive for: Normal Inspection Neurological: Positive for: Other (lethergic) - Medications Active Medications: Active Medications Generic Name Dose Route Start Last Admin Trade Name Freq PRN Reason Stop Dose Admin Acetaminophen 650 mg 08/22/18 00:16 Tylenol 325mg Tab PO Q6 PRN Pain 1-10 Albuterol/Ipratropium 3 ml 08/22/18 00:16 08/22/18 01:00 Duoneb 3 Mg/0.5 Mg (3 Ml) Ud INH 3 ml RQ4 PRN Administration Shortness of Breath Albuterol/Ipratropium 3 ml 08/22/18 08:00 08/27/18 07:50 Duoneb 3 Mg/0.5 Mg (3 Ml) Ud INH 3 ml RTID [facility] Administration Anastrozole 1 mg 08/22/18 09:00 08/22/18 09:00 Arimidex 1 Mg Tab PO Not Given DAILY [facility] Benzocaine/Menthol 1 malu 08/22/18 00:16 Cepacol Sore Throat PO Q2 PRN Sore Throat Calcium Acetate 667 mg 08/22/18 09:00 08/22/18 10:00 Phoslo PO Not Given DAILY [facility] Dextrose 0 ml 08/22/18 00:16 Dextrose 50% Inj IV STAT PRN Hypoglycemia Protocol Protocol Dextrose 0 gm 08/22/18 00:16 Glutose 15 PO ONCE PRN Hypoglycemia Protocol Protocol Dimethicone 1 applic 08/22/18 01:00 08/27/18 08:17 Proshield Plus Skin Protectant TOP 1 applic Q8 [facility] Administration Doxercalciferol 2 mcg 08/27/18 11:45 Hectorol IV MWF [facility] Epoetin Theron 10,000 unit 08/27/18 09:00 08/27/18 11:19 Procrit IV 10,000 unit MWF [facility] Administration Ergocalciferol 1 cap 08/22/18 00:16 Drisdol 50,000 Intl Units Cap PO QWK [facility] Escitalopram Oxalate 20 mg 08/22/18 09:00 Lexapro PO DAILY [facility] Famotidine 20 mg 08/26/18 17:00 08/27/18 08:17 Pepcid PO 20 mg BID [facility] Administration Furosemide 40 mg 08/22/18 09:00 Lasix IVP BID [facility] Glucagon 0 mg 08/22/18 00:16 Glucagen Diagnostic Kit IM STAT PRN Hypoglycemia Protocol Protocol Guaifenesin/Dextromethorphan 10 ml 08/22/18 00:16 08/23/18 10:05 Robitussin Dm PO 10 ml Q6 PRN Administration Cough Meropenem 500 mg/ Sodium 100 mls @ 100 mls/hr 08/22/18 09:00 08/27/18 10:15 Chloride IVPB 100 mls/hr DAILY [facility] Administration Protocol Levofloxacin/Dextrose 500 mg in 100 mls @ 100 mls/hr 08/22/18 01:00 08/26/18 01:00 Levaquin 500mg IVPB 100 mls/hr Q48H [facility] Administration Protocol Diltiazem HCl 125 mg/ Sodium 125 mls @ 5 mls/hr 08/26/18 20:18 08/26/18 20:54 Chloride IV 08/27/18 20:17 5 mg/hr .Q24H ONE 5 mls/hr Administration Protocol 5 MG/HR Insulin Detemir 15 units 08/22/18 22:00 Levemir SC HS [facility] Insulin Human Lispro 10 units 08/22/18 07:30 08/22/18 12:31 Humalog SC Not Given TIDAC [facility] Insulin Human Regular 0 units 08/22/18 23:00 08/27/18 11:11 Humulin R SC 2 unit ACCU-CHECK [facility] Administration Protocol Lactulose 20 gm 08/22/18 09:00 08/25/18 08:24 Enulose PO 20 gm TID [facility] Administration Lidocaine 1 ea 08/22/18 09:00 08/27/18 08:17 Lidoderm TD 1 ea DAILY [facility] Administration Lidocaine HCl 15 ml 08/26/18 14:01 Lidocaine 2% Viscous PO Q8H PRN dysphagia Losartan Potassium 50 mg 08/22/18 09:00 Cozaar PO DAILY [facility] Metolazone 2.5 mg 08/22/18 09:00 Zaroxolyn PO DAILY [facility] Phenol/Menthol 1 spry 08/23/18 15:10 08/27/18 10:16 Phenaseptic 1.4% Throat [place] 1 spray Q2 PRN Administration Pain, Mild (1-3) Rifaximin 550 mg 08/22/18 09:00 08/22/18 09:07 Xifaxan PO Not Given BID [facility] Protocol Sitagliptin Phosphate 25 mg 08/22/18 09:00 08/22/18 09:01 Januvia PO Not Given DAILY [facility] Tiotropium [place] 18 mcg 08/22/18 09:00 08/27/18 08:17 Spiriva INH 18 mcg DAILY [facility] Administration - Patient Studies Lab Studies: Microbiology Studies 08/21/18 14:05 Blood Culture - Final Blood-Venous NO GROWTH AFTER 5 DAYS Gram Stain - Final TEST NOT PERFORMED 08/21/18 10:29 Blood Culture - Final Blood-Venous NO GROWTH AFTER 5 DAYS Gram Stain - Final TEST NOT PERFORMED Lab Studies 08/27/18 08/27/18 08/27/18 Range/Units 10:52 06:19 04:30 WBC (4.8-10.8) K/uL RBC (3.80-5.20) Mil/uL Hgb (12.0-16.0) g/dL Hct (34.0-47.0) % MCV (81.0-99.0) fl MCH (27.0-31.0) pg MCHC (33.0-37.0) g/dL RDW (11.5-14.5) % Plt Count (130-400) K/uL MPV (7.2-11.7) fl Neut % (Auto) (50.0-75.0) % Lymph % (Auto) (20.0-40.0) % [place] % (Auto) (0.0-10.0) % Eos % (Auto) (0.0-4.0) % Baso % (Auto) (0.0-2.0) % Neut # (Auto) (1.8-7.0) K/uL Lymph # (Auto) (1.0-4.3) K/uL [place] # (Auto) (0.0-0.8) K/uL Eos # (Auto) (0.0-0.7) K/uL Baso # (Auto) (0.0-0.2) K/uL Sodium 137 (132-148) mmol/l Potassium 4.0 (3.6-5.0) MMOL/L Chloride 101 (98-107) mmol/L Carbon Dioxide 25 (22-30) mmol/L Anion Gap 15 (10-20) BUN 59 H (7-17) mg/dl Creatinine 2.1 H (0.7-1.2) mg/dl Est GFR ( Amer) 27 Est GFR (Non-Af Amer) 23 POC Glucose (mg/dL) 241 H 188 H (65-110) mg/dL Random Glucose 200 H (65-105) mg/dL Calcium 9.1 (8.4-10.2) mg/dL Total Bilirubin 2.0 H (0.2-1.3) mg/dl AST 38 H (14-36) U/L ALT 52 (9-52) U/L Alkaline Phosphatase 70 (38-126) U/L Total Protein 5.7 L (6.3-8.2) G/DL Albumin 2.5 L (3.5-5.0) g/dL Globulin 3.2 (2.2-3.9) gm/dL Albumin/Globulin Ratio 0.8 L (1.0-2.1) Hep Bs Antigen (NEGATIVE) Hep B Core IgM Ab (NEGATIVE) Hepatitis C Antibody (NEGATIVE) 08/27/18 08/26/18 08/26/18 Range/Units 04:30 21:05 15:39 WBC 8.8 (4.8-10.8) K/uL RBC 2.72 L (3.80-5.20) Mil/uL Hgb 9.5 L (12.0-16.0) g/dL Hct 27.3 L (34.0-47.0) % MCV 100.4 H (81.0-99.0) fl MCH 34.8 H (27.0-31.0) pg MCHC 34.6 (33.0-37.0) g/dL RDW 15.9 H (11.5-14.5) % Plt Count 37 L (130-400) K/uL MPV 9.4 (7.2-11.7) fl Neut % (Auto) 81.6 H (50.0-75.0) % Lymph % (Auto) 5.6 L (20.0-40.0) % [place] % (Auto) 9.0 (0.0-10.0) % Eos % (Auto) 3.5 (0.0-4.0) % Baso % (Auto) 0.3 (0.0-2.0) % Neut # (Auto) 7.1 H (1.8-7.0) K/uL Lymph # (Auto) 0.5 L (1.0-4.3) K/uL [place] # (Auto) 0.8 (0.0-0.8) K/uL Eos # (Auto) 0.3 (0.0-0.7) K/uL Baso # (Auto) 0.0 (0.0-0.2) K/uL Sodium (132-148) mmol/l Potassium (3.6-5.0) MMOL/L Chloride (98-107) mmol/L Carbon Dioxide (22-30) mmol/L Anion Gap (10-20) BUN (7-17) mg/dl Creatinine (0.7-1.2) mg/dl Est GFR ( Amer) Est GFR (Non-Af Amer) POC Glucose (mg/dL) 206 H 185 H (65-110) mg/dL Random Glucose (65-105) mg/dL Calcium (8.4-10.2) mg/dL Total Bilirubin (0.2-1.3) mg/dl AST (14-36) U/L ALT (9-52) U/L Alkaline Phosphatase (38-126) U/L Total Protein (6.3-8.2) G/DL Albumin (3.5-5.0) g/dL Globulin (2.2-3.9) gm/dL Albumin/Globulin Ratio (1.0-2.1) Hep Bs Antigen (NEGATIVE) Hep B Core IgM Ab (NEGATIVE) Hepatitis C Antibody (NEGATIVE) 08/24/18 Range/Units 10:00 WBC (4.8-10.8) K/uL RBC (3.80-5.20) Mil/uL Hgb (12.0-16.0) g/dL Hct (34.0-47.0) % MCV (81.0-99.0) fl MCH (27.0-31.0) pg MCHC (33.0-37.0) g/dL RDW (11.5-14.5) % Plt Count (130-400) K/uL MPV (7.2-11.7) fl Neut % (Auto) (50.0-75.0) % Lymph % (Auto) (20.0-40.0) % [place] % (Auto) (0.0-10.0) % Eos % (Auto) (0.0-4.0) % Baso % (Auto) (0.0-2.0) % Neut # (Auto) (1.8-7.0) K/uL Lymph # (Auto) (1.0-4.3) K/uL [place] # (Auto) (0.0-0.8) K/uL Eos # (Auto) (0.0-0.7) K/uL Baso # (Auto) (0.0-0.2) K/uL Sodium (132-148) mmol/l Potassium (3.6-5.0) MMOL/L Chloride (98-107) mmol/L Carbon Dioxide (22-30) mmol/L Anion Gap (10-20) BUN (7-17) mg/dl Creatinine (0.7-1.2) mg/dl Est GFR ( Amer) Est GFR (Non-Af Amer) POC Glucose (mg/dL) (65-110) mg/dL Random Glucose (65-105) mg/dL Calcium (8.4-10.2) mg/dL Total Bilirubin (0.2-1.3) mg/dl AST (14-36) U/L ALT (9-52) U/L Alkaline Phosphatase (38-126) U/L Total Protein (6.3-8.2) G/DL Albumin (3.5-5.0) g/dL Globulin (2.2-3.9) gm/dL Albumin/Globulin Ratio (1.0-2.1) Hep Bs Antigen Negative (NEGATIVE) Hep B Core IgM Ab Negative (NEGATIVE) Hepatitis C Antibody Negative (NEGATIVE) Laboratory Results - last 24 hr 08/24/18 08/26/18 08/26/18 10:00 15:39 21:05 WBC RBC Hgb Hct MCV MCH MCHC RDW Plt Count MPV Neut % (Auto) Lymph % (Auto) [place] % (Auto) Eos % (Auto) Baso % (Auto) Neut # (Auto) Lymph # (Auto) [place] # (Auto) Eos # (Auto) Baso # (Auto) Sodium Potassium Chloride Carbon Dioxide Anion Gap BUN Creatinine Est GFR ( Amer) Est GFR (Non-Af Amer) POC Glucose (mg/dL) 185 H 206 H Random Glucose Calcium Total Bilirubin AST ALT Alkaline Phosphatase Total Protein Albumin Globulin Albumin/Globulin Ratio Hep Bs Antigen Negative Hep B Core IgM Ab Negative Hepatitis C Antibody Negative 08/27/18 08/27/18 08/27/18 04:30 04:30 06:19 WBC 8.8 RBC 2.72 L Hgb 9.5 L Hct 27.3 L MCV 100.4 H MCH 34.8 H MCHC 34.6 RDW 15.9 H Plt Count 37 L MPV 9.4 Neut % (Auto) 81.6 H Lymph % (Auto) 5.6 L [place] % (Auto) 9.0 Eos % (Auto) 3.5 Baso % (Auto) 0.3 Neut # (Auto) 7.1 H Lymph # (Auto) 0.5 L [place] # (Auto) 0.8 Eos # (Auto) 0.3 Baso # (Auto) 0.0 Sodium 137 Potassium 4.0 Chloride 101 Carbon Dioxide 25 Anion Gap 15 BUN 59 H Creatinine 2.1 H Est GFR ( Amer) 27 Est GFR (Non-Af Amer) 23 POC Glucose (mg/dL) 188 H Random Glucose 200 H Calcium 9.1 Total Bilirubin 2.0 H AST 38 H ALT 52 Alkaline Phosphatase 70 Total Protein 5.7 L Albumin 2.5 L Globulin 3.2 Albumin/Globulin Ratio 0.8 L Hep Bs Antigen Hep B Core IgM Ab Hepatitis C Antibody 08/27/18 10:52 WBC RBC Hgb Hct MCV MCH MCHC RDW Plt Count MPV Neut % (Auto) Lymph % (Auto) [place] % (Auto) Eos % (Auto) Baso % (Auto) Neut # (Auto) Lymph # (Auto) [place] # (Auto) Eos # (Auto) Baso # (Auto) Sodium Potassium Chloride Carbon Dioxide Anion Gap BUN Creatinine Est GFR ( Amer) Est GFR (Non-Af Amer) POC Glucose (mg/dL) 241 H Random Glucose Calcium Total Bilirubin AST ALT Alkaline Phosphatase Total Protein Albumin Globulin Albumin/Globulin Ratio Hep Bs Antigen Hep B Core IgM Ab Hepatitis C Antibody Radiology Impressions: Radiology Impressions Extremity Ultrasound 08/26/18 13:55 IMPRESSION: No evidence of deep venous thrombosis. 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
--- NOTE | 2018-08-27 14:05 | CP.PCM.PN ---
Subjective - Date & Time of Evaluation Date of Evaluation: 08/27/18 Time of Evaluation: 08:00 - Subjective Subjective: no DVT RUE IV Merrem d/c'd sputum + ciera Objective - Vital Signs/Intake and Output Vital Signs (last 24 hours): Temp Pulse Resp BP Pulse Ox 97.3 F L 96 H 22 132/54 L 100 08/27/18 12:07 08/27/18 12:07 08/27/18 12:07 08/27/18 12:07 08/27/18 12:07 Intake and Output: 08/27/18 08/27/18 06:59 18:59 Intake Total 194 304 Output Total 300 Balance -106 304 - Medications Medications: Current Medications Acetaminophen (Tylenol 325mg Tab) 650 mg PO Q6 PRN PRN Reason: Pain 1-10 Albuterol/Ipratropium (Duoneb 3 Mg/0.5 Mg (3 Ml) Ud) 3 ml INH RQ4 PRN PRN Reason: Shortness of Breath Last Admin: 08/22/18 01:00 Dose: 3 ml Albuterol/Ipratropium (Duoneb 3 Mg/0.5 Mg (3 Ml) Ud) 3 ml INH RTID [facility] Last Admin: 08/27/18 07:50 Dose: 3 ml Anastrozole (Arimidex 1 Mg Tab) 1 mg PO DAILY [facility] Last Admin: 08/22/18 09:00 Dose: Not Given Benzocaine/Menthol (Cepacol Sore Throat) 1 malu PO Q2 PRN PRN Reason: Sore Throat Calcium Acetate (Phoslo) 667 mg PO DAILY [facility] Last Admin: 08/22/18 10:00 Dose: Not Given Dextrose (Dextrose 50% Inj) 0 ml IV STAT PRN; Protocol PRN Reason: Hypoglycemia Protocol Dextrose (Glutose 15) 0 gm PO ONCE PRN; Protocol PRN Reason: Hypoglycemia Protocol Dimethicone (Proshield Plus Skin Protectant) 1 applic TOP Q8 [facility] Last Admin: 08/27/18 08:17 Dose: 1 applic Doxercalciferol (Hectorol) 2 mcg IV MWF [facility] Epoetin Theron (Procrit) 10,000 unit IV MWF [facility] Last Admin: 08/27/18 11:19 Dose: 10,000 unit Ergocalciferol (Drisdol 50,000 Intl Units Cap) 1 cap PO QWK [facility] Escitalopram Oxalate (Lexapro) 20 mg PO DAILY [facility] Famotidine (Pepcid) 20 mg PO BID [facility] Last Admin: 08/27/18 08:17 Dose: 20 mg Furosemide (Lasix) 40 mg IVP BID [facility] Glucagon (Glucagen Diagnostic Kit) 0 mg IM STAT PRN; Protocol PRN Reason: Hypoglycemia Protocol Guaifenesin/Dextromethorphan (Robitussin Dm) 10 ml PO Q6 PRN PRN Reason: Cough Last Admin: 08/23/18 10:05 Dose: 10 ml Meropenem 500 mg/ Sodium (Chloride) 100 mls @ 100 mls/hr IVPB DAILY [facility]; Protocol Last Admin: 08/27/18 10:15 Dose: 100 mls/hr Levofloxacin/Dextrose (Levaquin 500mg) 500 mg in 100 mls @ 100 mls/hr IVPB Q48H [facility]; Protocol Last Admin: 08/26/18 01:00 Dose: 100 mls/hr Diltiazem HCl 125 mg/ Sodium (Chloride) 125 mls @ 5 mls/hr IV .Q24H ONE; Protocol Stop: 08/27/18 20:17 Last Admin: 08/26/18 20:54 Dose: 5 mg/hr, 5 mls/hr Insulin Detemir (Levemir) 15 units SC HS [facility] Insulin Human Lispro (Humalog) 10 units SC TIDAC [facility] Last Admin: 08/22/18 12:31 Dose: Not Given Insulin Human Regular (Humulin R) 0 units SC ACCU-CHECK [facility]; Protocol Last Admin: 08/27/18 11:11 Dose: 2 unit Lactulose (Enulose) 20 gm PO TID [facility] Last Admin: 08/25/18 08:24 Dose: 20 gm Lidocaine (Lidoderm) 1 ea TD DAILY [facility] Last Admin: 08/27/18 08:17 Dose: 1 ea Lidocaine HCl (Lidocaine 2% Viscous) 15 ml PO Q8H PRN PRN Reason: dysphagia Losartan Potassium (Cozaar) 50 mg PO DAILY [facility] Metolazone (Zaroxolyn) 2.5 mg PO DAILY [facility] Phenol/Menthol (Phenaseptic 1.4% Throat [place]) 1 spry MT Q2 PRN PRN Reason: Pain, Mild (1-3) Last Admin: 08/27/18 10:16 Dose: 1 spray Rifaximin (Xifaxan) 550 mg PO BID [facility]; Protocol Last Admin: 08/22/18 09:07 Dose: Not Given Sitagliptin Phosphate (Januvia) 25 mg PO DAILY [facility] Last Admin: 08/22/18 09:01 Dose: Not Given Tiotropium [place] (Spiriva) 18 mcg INH DAILY [facility] Last Admin: 08/27/18 08:17 Dose: 18 mcg - Labs Labs: 08/27/18 04:30 08/27/18 04:30 PT 15.7 Seconds (9.8-13.1) H 08/24/18 06:45 INR 1.4 08/24/18 06:45 APTT 32.2 Seconds (25.6-37.1) 08/24/18 06:45 - Constitutional Appears: Non-toxic, Chronically Ill - Head Exam Head Exam: NORMOCEPHALIC - Eye Exam Eye Exam: absent: Scleral icterus - ENT Exam ENT Exam: Mucous Membranes Dry - Neck Exam Neck Exam: absent: Lymphadenopathy - Respiratory Exam Respiratory Exam: Decreased Breath Sounds - Cardiovascular Exam Cardiovascular Exam: REGULAR RHYTHM - GI/Abdominal Exam GI & Abdominal Exam: Distended, Soft - Rectal Exam Rectal Exam: Deferred - Exam Exam: NORMAL INSPECTION Assessment and Plan (1) CHF (congestive heart failure) Status: Acute (2) HCAP (healthcare-associated pneumonia) Status: Acute (3) Pleural effusion Status: Acute (4) 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
--- NOTE | 2018-08-27 16:03 | CP.PCM.PN ---
Subjective - Date & Time of Evaluation Date of Evaluation: 08/27/18 Time of Evaluation: 15:40 - Subjective Subjective: patient developed rapid atrial fibrillation yesterday. dobutamine d/jose and cardizem started. rate under better control. patient appears comfortable. daughter is at the bedside Objective - Vital Signs/Intake and Output Vital Signs (last 24 hours): Temp Pulse Resp BP Pulse Ox 97.3 F L 98 H 22 150/72 96 08/27/18 12:07 08/27/18 15:00 08/27/18 14:00 08/27/18 14:00 08/27/18 14:00 Intake and Output: 08/27/18 08/27/18 06:59 18:59 Intake Total 194 318 Output Total 300 Balance -106 318 - Medications Medications: Current Medications Acetaminophen (Tylenol 325mg Tab) 650 mg PO Q6 PRN PRN Reason: Pain 1-10 Albuterol/Ipratropium (Duoneb 3 Mg/0.5 Mg (3 Ml) Ud) 3 ml INH RQ4 PRN PRN Reason: Shortness of Breath Last Admin: 08/22/18 01:00 Dose: 3 ml Albuterol/Ipratropium (Duoneb 3 Mg/0.5 Mg (3 Ml) Ud) 3 ml INH RTID [facility] Last Admin: 08/27/18 07:50 Dose: 3 ml Anastrozole (Arimidex 1 Mg Tab) 1 mg PO DAILY [facility] Last Admin: 08/22/18 09:00 Dose: Not Given Benzocaine/Menthol (Cepacol Sore Throat) 1 malu PO Q2 PRN PRN Reason: Sore Throat Calcium Acetate (Phoslo) 667 mg PO DAILY [facility] Last Admin: 08/22/18 10:00 Dose: Not Given Dextrose (Dextrose 50% Inj) 0 ml IV STAT PRN; Protocol PRN Reason: Hypoglycemia Protocol Dextrose (Glutose 15) 0 gm PO ONCE PRN; Protocol PRN Reason: Hypoglycemia Protocol Dimethicone (Proshield Plus Skin Protectant) 1 applic TOP Q8 [facility] Last Admin: 08/27/18 08:17 Dose: 1 applic Doxercalciferol (Hectorol) 2 mcg IV MWF [facility] Epoetin Theron (Procrit) 10,000 unit IV MWF [facility] Last Admin: 08/27/18 11:19 Dose: 10,000 unit Ergocalciferol (Drisdol 50,000 Intl Units Cap) 1 cap PO QWK [facility] Escitalopram Oxalate (Lexapro) 20 mg PO DAILY [facility] Famotidine (Pepcid) 20 mg PO BID [facility] Last Admin: 08/27/18 08:17 Dose: 20 mg Furosemide (Lasix) 40 mg IVP BID [facility] Glucagon (Glucagen Diagnostic Kit) 0 mg IM STAT PRN; Protocol PRN Reason: Hypoglycemia Protocol Guaifenesin/Dextromethorphan (Robitussin Dm) 10 ml PO Q6 PRN PRN Reason: Cough Last Admin: 08/23/18 10:05 Dose: 10 ml Diltiazem HCl 125 mg/ Sodium (Chloride) 125 mls @ 5 mls/hr IV .Q24H ONE; Protocol Stop: 08/27/18 20:17 Last Admin: 08/26/18 20:54 Dose: 5 mg/hr, 5 mls/hr Insulin Detemir (Levemir) 15 units SC HS [facility] Insulin Human Lispro (Humalog) 10 units SC TIDAC [facility] Last Admin: 08/22/18 12:31 Dose: Not Given Insulin Human Regular (Humulin R) 0 units SC ACCU-CHECK [facility]; Protocol Last Admin: 08/27/18 11:11 Dose: 2 unit Lactulose (Enulose) 20 gm PO TID [facility] Last Admin: 08/25/18 08:24 Dose: 20 gm Lidocaine (Lidoderm) 1 ea TD DAILY [facility] Last Admin: 08/27/18 08:17 Dose: 1 ea Lidocaine HCl (Lidocaine 2% Viscous) 15 ml PO Q8H PRN PRN Reason: dysphagia Losartan Potassium (Cozaar) 50 mg PO DAILY [facility] Metolazone (Zaroxolyn) 2.5 mg PO DAILY [facility] Phenol/Menthol (Phenaseptic 1.4% Throat [place]) 1 spry MT Q2 PRN PRN Reason: Pain, Mild (1-3) Last Admin: 08/27/18 10:16 Dose: 1 spray Rifaximin (Xifaxan) 550 mg PO BID [facility]; Protocol Last Admin: 08/22/18 09:07 Dose: Not Given Sitagliptin Phosphate (Januvia) 25 mg PO DAILY [facility] Last Admin: 08/22/18 09:01 Dose: Not Given Tiotropium [place] (Spiriva) 18 mcg INH DAILY [facility] Last Admin: 08/27/18 08:17 Dose: 18 mcg - Labs Labs: 08/27/18 04:30 08/27/18 04:30 PT 15.7 Seconds (9.8-13.1) H 08/24/18 06:45 INR 1.4 08/24/18 06:45 APTT 32.2 Seconds (25.6-37.1) 08/24/18 06:45 - Constitutional Appears: Chronically Ill - Head Exam Head Exam: NORMAL INSPECTION - Eye Exam Eye Exam: Normal appearance - ENT Exam ENT Exam: Mucous Membranes Moist - Neck Exam Neck Exam: Full ROM - Respiratory Exam Respiratory Exam: Decreased Breath Sounds - Cardiovascular Exam Cardiovascular Exam: Irregular Rhythm - GI/Abdominal Exam GI & Abdominal Exam: Normal Bowel Sounds - Rectal Exam Rectal Exam: Deferred - Extremities Exam Extremities Exam: absent: Pedal Edema - Back Exam Back Exam: NORMAL INSPECTION - Neurological Exam Neurological Exam: Alert - Psychiatric Exam Psychiatric exam: Normal Affect - Skin Skin Exam: Normal Color Assessment and Plan (1) Acute diastolic heart failure due to valvular disease Assessment & Plan: medical therapy. volume status is imrpoving Status: Acute (2) Atrial fibrillation Assessment & Plan: rate control with cardizem. not on anticaogulation due to bleeding in the past Status: Acute (3) Mitral valve regurgitation Status: Chronic
[2018-08-27] MEDS: Doxercalciferol 4 mcg/2 ml Inj IV SCH (17:58)
--- NOTE | 2018-08-27 19:04 | CP.PCM.PN ---
Subjective - Date & Time of Evaluation Date of Evaluation: 08/27/18 Time of Evaluation: 19:04 - Subjective Subjective: pt is seen and examined, follow up consult is dictated #[id number] Objective - Vital Signs/Intake and Output Vital Signs (last 24 hours): Temp Pulse Resp BP Pulse Ox 99.1 F 93 H 17 122/47 L 100 08/27/18 16:00 08/27/18 18:00 08/27/18 18:00 08/27/18 18:00 08/27/18 18:00 Intake and Output: 08/27/18 08/28/18 18:59 06:59 Intake Total 521 Output Total 1700 Balance -1179 - Medications Medications: Current Medications Acetaminophen (Tylenol 325mg Tab) 650 mg PO Q6 PRN PRN Reason: Pain 1-10 Albuterol/Ipratropium (Duoneb 3 Mg/0.5 Mg (3 Ml) Ud) 3 ml INH RQ4 PRN PRN Reason: Shortness of Breath Last Admin: 08/22/18 01:00 Dose: 3 ml Albuterol/Ipratropium (Duoneb 3 Mg/0.5 Mg (3 Ml) Ud) 3 ml INH RTID [facility] Last Admin: 08/27/18 07:50 Dose: 3 ml Anastrozole (Arimidex 1 Mg Tab) 1 mg PO DAILY [facility] Last Admin: 08/22/18 09:00 Dose: Not Given Benzocaine/Menthol (Cepacol Sore Throat) 1 malu PO Q2 PRN PRN Reason: Sore Throat Calcium Acetate (Phoslo) 667 mg PO DAILY [facility] Last Admin: 08/22/18 10:00 Dose: Not Given Dextrose (Dextrose 50% Inj) 0 ml IV STAT PRN; Protocol PRN Reason: Hypoglycemia Protocol Dextrose (Glutose 15) 0 gm PO ONCE PRN; Protocol PRN Reason: Hypoglycemia Protocol Dimethicone (Proshield Plus Skin Protectant) 1 applic TOP Q8 [facility] Last Admin: 08/27/18 16:30 Dose: 1 applic Doxercalciferol (Hectorol) 2 mcg IV MWF [facility] Last Admin: 08/27/18 17:58 Dose: Not Given Epoetin Theron (Procrit) 10,000 unit IV MWF [facility] Last Admin: 08/27/18 11:19 Dose: 10,000 unit Ergocalciferol (Drisdol 50,000 Intl Units Cap) 1 cap PO QWK [facility] Escitalopram Oxalate (Lexapro) 20 mg PO DAILY [facility] Famotidine (Pepcid) 20 mg PO BID [facility] Last Admin: 08/27/18 16:31 Dose: 20 mg Furosemide (Lasix) 40 mg IVP BID [facility] Glucagon (Glucagen Diagnostic Kit) 0 mg IM STAT PRN; Protocol PRN Reason: Hypoglycemia Protocol Guaifenesin/Dextromethorphan (Robitussin Dm) 10 ml PO Q6 PRN PRN Reason: Cough Last Admin: 08/23/18 10:05 Dose: 10 ml Diltiazem HCl 125 mg/ Sodium (Chloride) 125 mls @ 5 mls/hr IV .Q24H ONE; Protocol Stop: 08/27/18 20:17 Last Admin: 08/27/18 18:06 Dose: 5 mg/hr, 5 mls/hr Insulin Detemir (Levemir) 15 units SC HS [facility] Insulin Human Lispro (Humalog) 10 units SC TIDAC [facility] Last Admin: 08/22/18 12:31 Dose: Not Given Insulin Human Regular (Humulin R) 0 units SC ACCU-CHECK [facility]; Protocol Last Admin: 08/27/18 17:02 Dose: 2 unit Lactulose (Enulose) 20 gm PO TID [facility] Last Admin: 08/25/18 08:24 Dose: 20 gm Lidocaine (Lidoderm) 1 ea TD DAILY [facility] Last Admin: 08/27/18 08:17 Dose: 1 ea Lidocaine HCl (Lidocaine 2% Viscous) 15 ml PO Q8H PRN PRN Reason: dysphagia Losartan Potassium (Cozaar) 50 mg PO DAILY [facility] Metolazone (Zaroxolyn) 2.5 mg PO DAILY [facility] Phenol/Menthol (Phenaseptic 1.4% Throat [place]) 1 spry MT Q2 PRN PRN Reason: Pain, Mild (1-3) Last Admin: 08/27/18 10:16 Dose: 1 spray Rifaximin (Xifaxan) 550 mg PO BID [facility]; Protocol Last Admin: 08/22/18 09:07 Dose: Not Given Sitagliptin Phosphate (Januvia) 25 mg PO DAILY [facility] Last Admin: 08/22/18 09:01 Dose: Not Given Tiotropium [place] (Spiriva) 18 mcg INH DAILY [facility] Last Admin: 08/27/18 08:17 Dose: 18 mcg - Labs Labs: 08/27/18 04:30 08/27/18 04:30 PT 15.7 Seconds (9.8-13.1) H 08/24/18 06:45 INR 1.4 08/24/18 06:45 APTT 32.2 Seconds (25.6-37.1) 08/24/18 06:45
[2018-08-28] MEDS: Proshield Plus GEL TOP SCH ×2 (00:35→17:02)
--- NOTE | 2018-08-28 04:06 | PN ---
DATE: 08/27/2018 FOLLOWUP RENAL CONSULTATION LOCATION: The patient is located in room 435, ICU. REQUESTED BY: Chintan Wayne MD REASON FOR FOLLOWUP: Acute renal failure and continuation of hemodialysis. HISTORY OF PRESENT ILLNESS: Mrs. Sheth is an 82-year-old elderly female with a history of hypertension, diabetes, COPD, CHF, pulmonary hypertension, moderate to severe tricuspid regurgitation, cirrhosis of the liver, was admitted initially with cough and shortness of breath, being treated for pneumonia and CHF, status post thoracentesis x2. Subsequently, her hospital course complicated by acute renal failure, oliguric and very lethargic, requiring initiation of hemodialysis. The patient is feeling much better now, not in acute distress, still the patient is oliguric. The patient underwent hemodialysis this morning, had ultrafiltration of about 1.5 liter. The patient is more alert, awake, following commands appropriately, not in acute distress, on nasal cannula. PHYSICAL EXAMINATION: As follows: VITAL SIGNS: Blood pressure 122/47, pulse 93, respirations 17, temperature 99.1, saturation 100%. Height 4 feet 11 inches and weight is 132 pounds. GENERAL: Mrs. Sheth is an [id number] female, moderately built, moderately nourished, not in acute distress. HEENT: Pupils are normal, reactive to light and accommodation. Conjunctivae pink. Sclerae anicteric. Tongue is moist. Trachea is midline. LUNGS: Symmetric on both sides. Bilateral breath sounds present. Occasional basal crackles present, right more than the left. CARDIOVASCULAR SYSTEM: [place] at the fifth intercostal space, midclavicular line. S1 and S2 audible. Irregularly irregular. ABDOMEN: Normal in appearance, soft and tympanitic. No guarding. No rigidity. No hepatosplenomegaly. CENTRAL NERVOUS SYSTEM: The patient is alert, awake, oriented x2-3. Sensory, motor system grossly within normal limits. EXTREMITIES: No cyanosis, no clubbing. Trace edema in both upper and lower extremities. CURRENT MEDICATIONS: Reviewed, include lidocaine patch, Pepcid 20 mg p.o. b.i.d., Epogen 10,000 units three times a week, Spiriva 18 mcg inhaler daily, Robitussin DM 10 mL p.o. every 6 hours p.r.n, and Tylenol 650 mg p.o. every 6 hours p.r.n. LABORATORY DATA: Include as follows: As of 08/27/2018, WBC 8.8, hemoglobin 9.5, hematocrit is 27.3, platelets 37. Sodium 137, potassium 4, chloride 101, CO2 of 25, BUN 59, creatinine 2.1, glucose 200, calcium 9.1, total bili 2. AST 38, ALT 52, alkaline phosphatase 70, total protein 5.7, albumin is 2.5. Sputum culture positive for yeast as of 08/22/2018. Urine culture was negative as of 08/22/2018. Blood culture and pleural fluid is negative as of 08/21/2018. Chest x-ray as of 08/28/2018, stable pulmonary vascular congestion and small right pleural effusion, No significant interval change. Ultrasound of the extremities, no evidence of deep vein thrombosis. ASSESSMENT AND PLAN: In summary, Mrs. Sheth is an 82-year-old elderly female with a history of longstanding hypertension, diabetes, congestive heart failure, chronic obstructive pulmonary disease, pulmonary hypertension, tricuspid regurgitation moderate to severe, cirrhosis of the liver with acute renal failure, fluid overload and lethargy, was started on hemodialysis. 1. Oliguric acute renal failure, rule out acute tubular necrosis. 2. Anemia. 3. Thrombocytopenia. 4. Congestive heart failure. 5. Bilateral pleural effusion. 6. Atrial fibrillation. 7. Cirrhosis of the liver. Continue hemodialysis three times a week until renal function improves. Discussed with the patient's daughters at bedside, they agreed for the plan and continue monitor electrolytes and hemoglobin. Continue her current medications. Overall prognosis is guarded. We will follow with you. Thank you for allowing me to participate in your patient's care. Lalita Stovall MD TETO
[2018-08-28] MEDS: Insulin Regular 100 units/ml SC SCH ×5 (06:17→22:20)
[2018-08-28 06:50] LABS: HEMOGLOBIN 9.8 g/dL (12.0-16.0); MEAN CELL VOLUME 100.9 fl (81.0-99.0); MEAN CORPUSCULAR HEMOGLOBIN 34.8 pg (27.0-31.0); MEAN CORPUSCULAR HGB CONC 34.5 g/dL (33.0-37.0); RBC 2.83 Mil/uL (3.80-5.20); WHITE BLOOD COUNT 9.2 K/uL (4.8-10.8)
[2018-08-28 07:14] LABS: ALB/GLOB RATIO 0.8 (1.0-2.1); ALBUMIN 2.6 g/dL (3.5-5.0)
[2018-08-28] MEDS: Albuterol-Ipratrop 3 mg / 0.5 (3 ml) UD INH SCH ×2 (08:04→13:23)
[2018-08-28] MEDS: Lidocaine 5% Patch TD SCH (08:11)
[2018-08-28] MEDS: Tiotropium 18 mcg Cap For Inhalation INH SCH (08:13)
--- NOTE | 2018-08-28 10:42 | RAD ---
Date of service: 08/28/2018 PROCEDURE: CHEST RADIOGRAPH, 1 VIEW HISTORY: CHF COMPARISON: Chest radiograph dated 08/26/2018 FINDINGS: LUNGS: Pulmonary vascular congestion. Bibasilar atelectasis. PLEURA: Small right larger than left pleural effusions. No appreciable pneumothorax. CARDIOVASCULAR: Right subclavian access pacemaker redemonstrated. Aortic atherosclerotic calcifications. Cardiomediastinal silhouette stably enlarged. OSSEOUS STRUCTURES: Unchanged. VISUALIZED UPPER ABDOMEN: Normal. OTHER FINDINGS: Left upper extremity PICC, unchanged. Right internal jugular access non tunneled hemodialysis catheter, unchanged. IMPRESSION: Right larger than left small bilateral pleural effusions.
--- NOTE | 2018-08-28 12:03 | CP.PCM.PN ---
Subjective - Date & Time of Evaluation Date of Evaluation: 08/28/18 Time of Evaluation: 12:02 - Subjective Subjective: pt is seen and examined, follow up consult is dictated #[id number] for hd in am Objective - Vital Signs/Intake and Output Vital Signs (last 24 hours): Temp Pulse Resp BP Pulse Ox 98.3 F 85 19 155/51 H 100 08/28/18 08:00 08/28/18 11:00 08/28/18 11:00 08/28/18 11:00 08/28/18 11:00 Intake and Output: 08/28/18 08/28/18 06:59 18:59 Intake Total 55 250 Output Total 100 Balance 55 150 - Medications Medications: Current Medications Acetaminophen (Tylenol 325mg Tab) 650 mg PO Q6 PRN PRN Reason: Pain 1-10 Albuterol/Ipratropium (Duoneb 3 Mg/0.5 Mg (3 Ml) Ud) 3 ml INH RQ4 PRN PRN Reason: Shortness of Breath Last Admin: 08/22/18 01:00 Dose: 3 ml Albuterol/Ipratropium (Duoneb 3 Mg/0.5 Mg (3 Ml) Ud) 3 ml INH RTID [facility] Last Admin: 08/28/18 08:04 Dose: 3 ml Anastrozole (Arimidex 1 Mg Tab) 1 mg PO DAILY [facility] Last Admin: 08/22/18 09:00 Dose: Not Given Benzocaine/Menthol (Cepacol Sore Throat) 1 malu PO Q2 PRN PRN Reason: Sore Throat Calcium Acetate (Phoslo) 667 mg PO DAILY [facility] Last Admin: 08/22/18 10:00 Dose: Not Given Dextrose (Dextrose 50% Inj) 0 ml IV STAT PRN; Protocol PRN Reason: Hypoglycemia Protocol Dextrose (Glutose 15) 0 gm PO ONCE PRN; Protocol PRN Reason: Hypoglycemia Protocol Dimethicone (Proshield Plus Skin Protectant) 1 applic TOP Q8 [facility] Last Admin: 08/28/18 00:35 Dose: 1 applic Doxercalciferol (Hectorol) 2 mcg IV MWF [facility] Last Admin: 08/27/18 17:58 Dose: Not Given Epoetin Theron (Procrit) 10,000 unit IV MWF [facility] Last Admin: 08/27/18 11:19 Dose: 10,000 unit Ergocalciferol (Drisdol 50,000 Intl Units Cap) 1 cap PO QWK [facility] Escitalopram Oxalate (Lexapro) 20 mg PO DAILY [facility] Famotidine (Pepcid) 20 mg PO BID [facility] Last Admin: 08/28/18 08:12 Dose: 20 mg Furosemide (Lasix) 40 mg IVP BID [facility] Glucagon (Glucagen Diagnostic Kit) 0 mg IM STAT PRN; Protocol PRN Reason: Hypoglycemia Protocol Guaifenesin/Dextromethorphan (Robitussin Dm) 10 ml PO Q6 PRN PRN Reason: Cough Last Admin: 08/23/18 10:05 Dose: 10 ml Insulin Detemir (Levemir) 15 units SC HS [facility] Insulin Human Lispro (Humalog) 10 units SC TIDAC [facility] Last Admin: 08/22/18 12:31 Dose: Not Given Insulin Human Regular (Humulin R) 0 units SC ACCU-CHECK [facility]; Protocol Last Admin: 08/28/18 11:59 Dose: 1 unit Lactulose (Enulose) 20 gm PO TID [facility] Last Admin: 08/25/18 08:24 Dose: 20 gm Lidocaine (Lidoderm) 1 ea TD DAILY [facility] Last Admin: 08/28/18 08:11 Dose: 1 ea Lidocaine HCl (Lidocaine 2% Viscous) 15 ml PO Q8H PRN PRN Reason: dysphagia Last Admin: 08/27/18 20:53 Dose: 15 ml Losartan Potassium (Cozaar) 50 mg PO DAILY [facility] Metolazone (Zaroxolyn) 2.5 mg PO DAILY [facility] Phenol/Menthol (Phenaseptic 1.4% Throat [place]) 1 spry MT Q2 PRN PRN Reason: Pain, Mild (1-3) Last Admin: 08/27/18 20:32 Dose: 1 spray Rifaximin (Xifaxan) 550 mg PO BID [facility]; Protocol Last Admin: 08/22/18 09:07 Dose: Not Given Sitagliptin Phosphate (Januvia) 25 mg PO DAILY [facility] Last Admin: 08/22/18 09:01 Dose: Not Given Tiotropium [place] (Spiriva) 18 mcg INH DAILY [facility] Last Admin: 08/28/18 08:13 Dose: 18 mcg - Labs Labs: 08/28/18 05:45 08/28/18 05:45 PT 15.7 Seconds (9.8-13.1) H 08/24/18 06:45 INR 1.4 08/24/18 06:45 APTT 32.2 Seconds (25.6-37.1) 08/24/18 06:45
--- NOTE | 2018-08-28 12:15 | CP.PCM.PN ---
Subjective - Date & Time of Evaluation Date of Evaluation: 08/28/18 Time of Evaluation: 08:00 - Subjective Subjective: seen on rounds in ICU remains afebrile Objective - Vital Signs/Intake and Output Vital Signs (last 24 hours): Temp Pulse Resp BP Pulse Ox 98.3 F 85 19 155/51 H 100 08/28/18 08:00 08/28/18 11:00 08/28/18 11:00 08/28/18 11:00 08/28/18 11:00 Intake and Output: 08/28/18 08/28/18 06:59 18:59 Intake Total 55 600 Output Total 150 Balance 55 450 - Medications Medications: Current Medications Acetaminophen (Tylenol 325mg Tab) 650 mg PO Q6 PRN PRN Reason: Pain 1-10 Albuterol/Ipratropium (Duoneb 3 Mg/0.5 Mg (3 Ml) Ud) 3 ml INH RQ4 PRN PRN Reason: Shortness of Breath Last Admin: 08/22/18 01:00 Dose: 3 ml Albuterol/Ipratropium (Duoneb 3 Mg/0.5 Mg (3 Ml) Ud) 3 ml INH RTID [facility] Last Admin: 08/28/18 08:04 Dose: 3 ml Anastrozole (Arimidex 1 Mg Tab) 1 mg PO DAILY [facility] Last Admin: 08/22/18 09:00 Dose: Not Given Benzocaine/Menthol (Cepacol Sore Throat) 1 malu PO Q2 PRN PRN Reason: Sore Throat Calcium Acetate (Phoslo) 667 mg PO DAILY [facility] Last Admin: 08/22/18 10:00 Dose: Not Given Dextrose (Dextrose 50% Inj) 0 ml IV STAT PRN; Protocol PRN Reason: Hypoglycemia Protocol Dextrose (Glutose 15) 0 gm PO ONCE PRN; Protocol PRN Reason: Hypoglycemia Protocol Dimethicone (Proshield Plus Skin Protectant) 1 applic TOP Q8 [facility] Last Admin: 08/28/18 00:35 Dose: 1 applic Doxercalciferol (Hectorol) 2 mcg IV MWF [facility] Last Admin: 08/27/18 17:58 Dose: Not Given Epoetin Theron (Procrit) 10,000 unit IV MWF [facility] Last Admin: 08/27/18 11:19 Dose: 10,000 unit Ergocalciferol (Drisdol 50,000 Intl Units Cap) 1 cap PO QWK [facility] Escitalopram Oxalate (Lexapro) 20 mg PO DAILY [facility] Famotidine (Pepcid) 20 mg PO BID [facility] Last Admin: 08/28/18 08:12 Dose: 20 mg Furosemide (Lasix) 40 mg IVP BID [facility] Glucagon (Glucagen Diagnostic Kit) 0 mg IM STAT PRN; Protocol PRN Reason: Hypoglycemia Protocol Guaifenesin/Dextromethorphan (Robitussin Dm) 10 ml PO Q6 PRN PRN Reason: Cough Last Admin: 08/23/18 10:05 Dose: 10 ml Insulin Detemir (Levemir) 15 units SC HS [facility] Insulin Human Lispro (Humalog) 10 units SC TIDAC [facility] Last Admin: 08/22/18 12:31 Dose: Not Given Insulin Human Regular (Humulin R) 0 units SC ACCU-CHECK [facility]; Protocol Last Admin: 08/28/18 11:59 Dose: 1 unit Lactulose (Enulose) 20 gm PO TID [facility] Last Admin: 08/25/18 08:24 Dose: 20 gm Lidocaine (Lidoderm) 1 ea TD DAILY [facility] Last Admin: 08/28/18 08:11 Dose: 1 ea Lidocaine HCl (Lidocaine 2% Viscous) 15 ml PO Q8H PRN PRN Reason: dysphagia Last Admin: 08/27/18 20:53 Dose: 15 ml Losartan Potassium (Cozaar) 50 mg PO DAILY [facility] Metolazone (Zaroxolyn) 2.5 mg PO DAILY [facility] Phenol/Menthol (Phenaseptic 1.4% Throat [place]) 1 spry MT Q2 PRN PRN Reason: Pain, Mild (1-3) Last Admin: 08/27/18 20:32 Dose: 1 spray Rifaximin (Xifaxan) 550 mg PO BID [facility]; Protocol Last Admin: 08/22/18 09:07 Dose: Not Given Sitagliptin Phosphate (Januvia) 25 mg PO DAILY [facility] Last Admin: 08/22/18 09:01 Dose: Not Given Tiotropium [place] (Spiriva) 18 mcg INH DAILY [facility] Last Admin: 08/28/18 08:13 Dose: 18 mcg - Labs Labs: 08/28/18 05:45 08/28/18 05:45 PT 15.7 Seconds (9.8-13.1) H 08/24/18 06:45 INR 1.4 08/24/18 06:45 APTT 32.2 Seconds (25.6-37.1) 08/24/18 06:45 - Constitutional Appears: Non-toxic, Chronically Ill - Head Exam Head Exam: NORMOCEPHALIC - Eye Exam Eye Exam: absent: Nystagmus - ENT Exam ENT Exam: Mucous Membranes Dry - Neck Exam Neck Exam: absent: Lymphadenopathy - Respiratory Exam Respiratory Exam: Decreased Breath Sounds - Cardiovascular Exam Cardiovascular Exam: REGULAR RHYTHM - GI/Abdominal Exam GI & Abdominal Exam: Distended, Soft Assessment and Plan (1) CHF (congestive heart failure) Status: Acute (2) HCAP (healthcare-associated pneumonia) Status: Acute (3) Pleural effusion Status: Acute (4) Acute diastolic heart failure due to valvular disease Status: Acute (5) Acute dyspnea Status: Acute (6) Acute renal failure Status: Acute - Assessment and Plan (Free Text) Assessment: IV rx renewed
--- NOTE | 2018-08-28 16:48 | CP.CCUPN ---
CCU Subjective - Physician Review Subjective (Free Text): 08/28/18 16:39 The patient was Seen/interviewed and examined by me at the bedside during ICU round, Medical records reviewed and Management issues were discussed and formulated with the house staff. Events reviewed 82 Years old Female with PMHx of hypertension, hypothyroidism, hyperlipidemia, diabetes, atrial fibrillation, asthma/COPD and Pulmonary Hypertension (?Connective tissue disorder Vs Liver Cirrhosis). Who intially presents to ER 08/04 for evaluation of shortness of breath associated with cough and decreased appetite onset 2 days. Admitted with acute congestive heart failure Transferred to the ICU for management of Acute resp insuff secondary to CHF, Pneumonia with Pleural effusion 08/15, she underwent US guided right thoracentesis for Right pleural effusion 1.45 liters of straw colored fluid Removed 08/21, she underwent US guided right thoracentesis for Right pleural effusion 1200 cc of gonzales colored fluid Removed Patient more awake, was lethargic lethargic over the weekend, opens eyes to bella bal stimuli. Off BIPAP, FIO2, Off dobutamine drip Started on Cardiazem drip for A-Fib with RVR Awake, follows some commands Comfortable, NAD Denies any chest pain, SOB or Palpitations Afebrile, A-Fib on the monitor Last 24H I&O 576/1700 Had HD yesterday with 1500 cc net fluid removal This morning labs revealed Platelet drop to 28K, no active bleeding, discussed with hematology, will transfuse for plat <20K. CCU Objective - Vital Signs / Intake & Output Vital Signs (Last 4 hours): Vital Signs Temp Pulse Resp BP Pulse Ox 08/28/18 16:00 97.7 F 94 H 24 128/60 98 08/28/18 14:00 89 20 144/60 97 08/28/18 13:00 96 H 28 H 145/57 L 99 Intake and Output (Last 8hrs): Intake & Output 08/28/18 08/28/18 08/28/18 06:59 14:59 22:59 Intake Total 40 750 Output Total 150 Balance 40 600 Intake: IV 40 Oral 750 Output: Urine 150 Urethral (Crane) 150 - Physical Exam Head: Positive for: Atraumatic, Normocephalic Pupils: Positive for: PERRL Conjunctiva: Positive for: Normal Ears: Positive for: Normal Mouth: Positive for: Moist Mucous Membranes Nose (External): Positive for: Atraumatic Neck: Positive for: Normal Range of Motion Respiratory/Chest: Positive for: Rhonchi Cardiovascular: Positive for: Irregular Rhythm Abdomen: Positive for: Normal Bowel Sounds Upper Extremity: Positive for: Normal Inspection Lower Extremity: Positive for: Normal Inspection Neurological: Positive for: Other (lethergic) - Medications Active Medications: Active Medications Generic Name Dose Route Start Last Admin Trade Name Freq PRN Reason Stop Dose Admin Acetaminophen 650 mg 08/22/18 00:16 Tylenol 325mg Tab PO Q6 PRN Pain 1-10 Albuterol/Ipratropium 3 ml 08/22/18 00:16 08/22/18 01:00 Duoneb 3 Mg/0.5 Mg (3 Ml) Ud INH 3 ml RQ4 PRN Administration Shortness of Breath Albuterol/Ipratropium 3 ml 08/22/18 08:00 08/28/18 13:23 Duoneb 3 Mg/0.5 Mg (3 Ml) Ud INH 3 ml RTID KATEY Administration Anastrozole 1 mg 08/22/18 09:00 08/22/18 09:00 Arimidex 1 Mg Tab PO Not Given DAILY KATEY Benzocaine/Menthol 1 malu 08/22/18 00:16 Cepacol Sore Throat PO Q2 PRN Sore Throat Calcium Acetate 667 mg 08/22/18 09:00 08/22/18 10:00 Phoslo PO Not Given DAILY KATEY Dextrose 0 ml 08/22/18 00:16 Dextrose 50% Inj IV STAT PRN Hypoglycemia Protocol Protocol Dextrose 0 gm 08/22/18 00:16 Glutose 15 PO ONCE PRN Hypoglycemia Protocol Protocol Dimethicone 1 applic 08/22/18 01:00 08/28/18 00:35 Proshield Plus Skin Protectant TOP 1 applic Q8 KATEY Administration Doxercalciferol 2 mcg 08/27/18 11:45 08/27/18 17:58 Hectorol IV Not Given MWF KATEY Epoetin Theron 10,000 unit 08/27/18 09:00 08/27/18 11:19 Procrit IV 10,000 unit MWF KATEY Administration Ergocalciferol 1 cap 08/22/18 00:16 Drisdol 50,000 Intl Units Cap PO QWK [facility] Escitalopram Oxalate 20 mg 08/22/18 09:00 Lexapro PO DAILY [facility] Famotidine 20 mg 08/26/18 17:00 08/28/18 08:12 Pepcid PO 20 mg BID KATEY Administration Furosemide 40 mg 08/22/18 09:00 Lasix IVP BID KATEY Glucagon 0 mg 08/22/18 00:16 Glucagen Diagnostic Kit IM STAT PRN Hypoglycemia Protocol Protocol Guaifenesin/Dextromethorphan 10 ml 08/22/18 00:16 08/23/18 10:05 Robitussin Dm PO 10 ml Q6 PRN Administration Cough Diltiazem HCl 125 mg/ Sodium 125 mls @ 5 mls/hr 08/28/18 14:05 Chloride IV 08/29/18 14:04 .Q24H ONE Protocol 5 MG/HR Insulin Detemir 15 units 08/22/18 22:00 Levemir SC HS [facility] Insulin Human Lispro 10 units 08/22/18 07:30 08/22/18 12:31 Humalog SC Not Given TIDAC [facility] Insulin Human Regular 0 units 08/22/18 23:00 08/28/18 11:59 Humulin R SC 1 unit ACCU-CHECK KATEY Administration Protocol Lactulose 20 gm 08/22/18 09:00 08/25/18 08:24 Enulose PO 20 gm TID KATEY Administration Lidocaine 1 ea 08/22/18 09:00 08/28/18 08:11 Lidoderm TD 1 ea DAILY [facility] Administration Lidocaine HCl 15 ml 08/26/18 14:01 08/28/18 13:43 Lidocaine 2% Viscous PO 15 ml Q8H PRN Administration dysphagia Losartan Potassium 50 mg 08/22/18 09:00 Cozaar PO DAILY [facility] Metolazone 2.5 mg 08/22/18 09:00 Zaroxolyn PO DAILY [facility] Phenol/Menthol 1 spry 08/23/18 15:10 08/27/18 20:32 Phenaseptic 1.4% Throat [place] 1 spray Q2 PRN Administration Pain, Mild (1-3) Rifaximin 550 mg 08/22/18 09:00 08/22/18 09:07 Xifaxan PO Not Given BID [facility] Protocol Saliva Substitute 5 ml 08/28/18 13:00 First Magic Mouthwash PO TID [facility] Sitagliptin Phosphate 25 mg 08/22/18 09:00 08/22/18 09:01 Januvia PO Not Given DAILY KATEY Tiotropium [place] 18 mcg 08/22/18 09:00 08/28/18 08:13 Spiriva INH 18 mcg DAILY KATEY Administration - Patient Studies Lab Studies: Lab Studies 08/28/18 08/28/18 08/28/18 Range/Units 05:45 05:45 05:43 WBC 9.2 (4.8-10.8) K/uL RBC 2.83 L (3.80-5.20) Mil/uL Hgb 9.8 L (12.0-16.0) g/dL Hct 28.5 L (34.0-47.0) % MCV 100.9 H (81.0-99.0) fl MCH 34.8 H (27.0-31.0) pg MCHC 34.5 (33.0-37.0) g/dL RDW 17.0 H (11.5-14.5) % Plt Count 28 L* (130-400) K/uL Sodium 139 (132-148) mmol/l Potassium 4.2 (3.6-5.0) MMOL/L Chloride 105 (98-107) mmol/L Carbon Dioxide 29 (22-30) mmol/L Anion Gap 9 L (10-20) BUN 44 H (7-17) mg/dl Creatinine 1.9 H (0.7-1.2) mg/dl Est GFR ( Amer) 31 Est GFR (Non-Af Amer) 25 POC Glucose (mg/dL) 167 H (65-110) mg/dL Random Glucose 175 H (65-105) mg/dL Calcium 9.0 (8.4-10.2) mg/dL Phosphorus 3.0 (2.5-4.5) mg/dl Magnesium 2.0 (1.6-2.3) MG/DL Total Bilirubin 1.9 H (0.2-1.3) mg/dl AST 42 H (14-36) U/L ALT 46 (9-52) U/L Alkaline Phosphatase 71 (38-126) U/L Total Protein 5.9 L (6.3-8.2) G/DL Albumin 2.6 L (3.5-5.0) g/dL Globulin 3.3 (2.2-3.9) gm/dL Albumin/Globulin Ratio 0.8 L (1.0-2.1) Hep Bs Antibody, Quant (>or=10) mIU/mL 08/27/18 08/27/18 08/24/18 Range/Units 20:36 17:00 10:00 WBC (4.8-10.8) K/uL RBC (3.80-5.20) Mil/uL Hgb (12.0-16.0) g/dL Hct (34.0-47.0) % MCV (81.0-99.0) fl MCH (27.0-31.0) pg MCHC (33.0-37.0) g/dL RDW (11.5-14.5) % Plt Count (130-400) K/uL Sodium (132-148) mmol/l Potassium (3.6-5.0) MMOL/L Chloride (98-107) mmol/L Carbon Dioxide (22-30) mmol/L Anion Gap (10-20) BUN (7-17) mg/dl Creatinine (0.7-1.2) mg/dl Est GFR ( Amer) Est GFR (Non-Af Amer) POC Glucose (mg/dL) 201 H 205 H (65-110) mg/dL Random Glucose (65-105) mg/dL Calcium (8.4-10.2) mg/dL Phosphorus (2.5-4.5) mg/dl Magnesium (1.6-2.3) MG/DL Total Bilirubin (0.2-1.3) mg/dl AST (14-36) U/L ALT (9-52) U/L Alkaline Phosphatase (38-126) U/L Total Protein (6.3-8.2) G/DL Albumin (3.5-5.0) g/dL Globulin (2.2-3.9) gm/dL Albumin/Globulin Ratio (1.0-2.1) Hep Bs Antibody, Quant <5 L (>or=10) mIU/mL Laboratory Results - last 24 hr 08/24/18 08/27/18 08/27/18 10:00 17:00 20:36 WBC RBC Hgb Hct MCV MCH MCHC RDW Plt Count Sodium Potassium Chloride Carbon Dioxide Anion Gap BUN Creatinine Est GFR ( Amer) Est GFR (Non-Af Amer) POC Glucose (mg/dL) 205 H 201 H Random Glucose Calcium Phosphorus Magnesium Total Bilirubin AST ALT Alkaline Phosphatase Total Protein Albumin Globulin Albumin/Globulin Ratio Hep Bs Antibody, Quant <5 L 08/28/18 08/28/18 08/28/18 05:43 05:45 05:45 WBC 9.2 RBC 2.83 L Hgb 9.8 L Hct 28.5 L MCV 100.9 H MCH 34.8 H MCHC 34.5 RDW 17.0 H Plt Count 28 L* Sodium 139 Potassium 4.2 Chloride 105 Carbon Dioxide 29 Anion Gap 9 L BUN 44 H Creatinine 1.9 H Est GFR ( Amer) 31 Est GFR (Non-Af Amer) 25 POC Glucose (mg/dL) 167 H Random Glucose 175 H Calcium 9.0 Phosphorus 3.0 Magnesium 2.0 Total Bilirubin 1.9 H AST 42 H ALT 46 Alkaline Phosphatase 71 Total Protein 5.9 L Albumin 2.6 L Globulin 3.3 Albumin/Globulin Ratio 0.8 L Hep Bs Antibody, Quant Radiology Impressions: Radiology Impressions Chest X-Ray 08/28/18 08:04 IMPRESSION: Right larger than left small bilateral pleural effusions. Fingerstick Blood Sugar Results: 193 Review of Systems - Review of Systems Systems not reviewed;Unavailable: Altered Mental Status Critical Care Progress Note - Extremities/Vascular Does the Patient have a Central Venous Catheter?: No Does the Patient need a Central Venous Catheter?: No Does the Patient have a Crane Catheter?: No Does the Patient need a Crane Catheter?: No - Nutrition Nutrition: Nutrition Category Date Time Status Dysphagia/Modified Consistency Diet [DIET] Diets 08/25/18 Breakfast Active Assessment/Plan (1) Respiratory failure Current Visit: Yes Status: Acute Priority: High Comment: Multifactorial from acute CHF, Pneumonia with Pleural effusion improving, Breathing unlabored Off BIPAP (2) Acute diastolic heart failure due to valvular disease Current Visit: Yes Status: Acute Priority: High Comment: Continue gentle diuresis, medical management as per cardiology (3) Acute renal failure Current Visit: Yes Status: Acute Priority: High (4) Pleural effusion Current Visit: Yes Status: Acute Priority: High Comment: 08/15, she underwent US guided right thoracentesis for Right pleural effusion 1.45 liters of straw colored fluid Removed 08/21, she underwent US guided right thoracentesis for Right pleural effusion 1200 cc of gonzales colored fluid Removed (5) HCAP (healthcare-associated pneumonia) Current Visit: Yes Status: Acute Priority: High Comment: Afebrile, Off Antibiotics (6) Atrial fibrillation Current Visit: Yes Status: Acute Priority: High Comment: Heart rate better controled Wean off cardizem drip (7) COPD (chronic obstructive pulmonary disease) Current Visit: No Status: Chronic Priority: Medium Comment: Spiriva 18 mcg INH DAILY PRN Albuterol (8) Cirrhosis Current Visit: No Status: Chronic Priority: Medium Comment: Rifaximin (Xifaxan) 550 mg PO BID KATEY Lactulose (Enulose) 20 gm PO TID KATEY
[2018-08-28] MEDS: Mag&Al/Simet/Diphen/Lido 237 ML KIT PO SCH (17:01)
--- NOTE | 2018-08-28 22:57 | CP.PCM.PN ---
Subjective - Date & Time of Evaluation Date of Evaluation: 08/28/18 Time of Evaluation: 17:00 - Subjective Subjective: Appears fatigued, daughter at bedside. Hematuria noted. Objective - Vital Signs/Intake and Output Vital Signs (last 24 hours): Temp Pulse Resp BP Pulse Ox 98.2 F 92 H 27 H 144/58 L 97 08/28/18 22:00 08/28/18 22:00 08/28/18 22:00 08/28/18 22:00 08/28/18 22:00 Intake and Output: 08/28/18 08/29/18 18:59 06:59 Intake Total 1200 33 Output Total 200 Balance 1000 33 - Medications Medications: Current Medications Acetaminophen (Tylenol 325mg Tab) 650 mg PO Q6 PRN PRN Reason: Pain 1-10 Anastrozole (Arimidex 1 Mg Tab) 1 mg PO DAILY REPLACED BY [facility] Last Admin: 08/22/18 09:00 Dose: Not Given Benzocaine/Menthol (Cepacol Sore Throat) 1 malu PO Q2 PRN PRN Reason: Sore Throat Calcium Acetate (Phoslo) 667 mg PO DAILY [facility]PL[facility] Last Admin: 08/22/18 10:00 Dose: Not Given Dextrose (Dextrose 50% Inj) 0 ml IV STAT PRN; Protocol PRN Reason: Hypoglycemia Protocol Dextrose (Glutose 15) 0 gm PO ONCE PRN; Protocol PRN Reason: Hypoglycemia Protocol Dimethicone (Proshield Plus Skin Protectant) 1 applic TOP Q8 REPLACED BY [facility] Last Admin: 08/28/18 17:02 Dose: 1 applic Doxercalciferol (Hectorol) 2 mcg IV MWF REPLACED BY [facility] Last Admin: 08/27/18 17:58 Dose: Not Given Epoetin Theron (Procrit) 10,000 unit IV MWF REPLACED BY [facility] Last Admin: 08/27/18 11:19 Dose: 10,000 unit Ergocalciferol (Drisdol 50,000 Intl Units Cap) 1 cap PO QWK REPLACED BY [facility] Escitalopram Oxalate (Lexapro) 20 mg PO DAILY REPLACED BY [facility] Famotidine (Pepcid) 20 mg PO BID REPLACED BY [facility] Last Admin: 08/28/18 17:02 Dose: 20 mg Furosemide (Lasix) 40 mg IVP BID REPLACED BY [facility] Glucagon (Glucagen Diagnostic Kit) 0 mg IM STAT PRN; Protocol PRN Reason: Hypoglycemia Protocol Guaifenesin/Dextromethorphan (Robitussin Dm) 10 ml PO Q6 PRN PRN Reason: Cough Last Admin: 08/23/18 10:05 Dose: 10 ml Diltiazem HCl 125 mg/ Sodium (Chloride) 125 mls @ 5 mls/hr IV .Q24H ONE; Protocol Stop: 08/29/18 14:04 Last Admin: 08/28/18 16:59 Dose: 5 mg/hr, 5 mls/hr Insulin Detemir (Levemir) 15 units SC HS REPLACED BY [facility] Insulin Human Lispro (Humalog) 10 units SC TIDAC REPLACED BY [facility] Last Admin: 08/22/18 12:31 Dose: Not Given Insulin Human Regular (Humulin R) 0 units SC ACCU-CHECK REPLACED BY [facility]; Protocol Last Admin: 08/28/18 22:20 Dose: Not Given Lactulose (Enulose) 20 gm PO TID REPLACED BY [facility] Last Admin: 08/25/18 08:24 Dose: 20 gm Lidocaine (Lidoderm) 1 ea TD DAILY REPLACED BY [facility] Last Admin: 08/28/18 08:11 Dose: 1 ea Lidocaine HCl (Lidocaine 2% Viscous) 15 ml PO Q8H PRN PRN Reason: dysphagia Last Admin: 08/28/18 13:43 Dose: 15 ml Losartan Potassium (Cozaar) 50 mg PO DAILY REPLACED BY [facility] Metolazone (Zaroxolyn) 2.5 mg PO DAILY REPLACED BY [facility] Phenol/Menthol (Phenaseptic 1.4% Throat [place]) 1 spry MT Q2 PRN PRN Reason: Pain, Mild (1-3) Last Admin: 08/27/18 20:32 Dose: 1 spray Rifaximin (Xifaxan) 550 mg PO BID REPLACED BY [facility]; Protocol Last Admin: 08/22/18 09:07 Dose: Not Given Saliva Substitute (First Magic Mouthwash) 5 ml PO TID REPLACED BY [facility] Last Admin: 08/28/18 17:01 Dose: 5 ml Sitagliptin Phosphate (Januvia) 25 mg PO DAILY REPLACED BY [facility] Last Admin: 08/22/18 09:01 Dose: Not Given Tiotropium [place] (Spiriva) 18 mcg INH DAILY REPLACED BY [facility] Last Admin: 08/28/18 08:13 Dose: 18 mcg - Labs Labs: 08/28/18 05:45 08/28/18 05:45 PT 15.7 Seconds (9.8-13.1) H 08/24/18 06:45 INR 1.4 01/18/19 06:45 APTT 32.2 Seconds (25.6-37.1) 08/24/18 06:45 - Head Exam Head Exam: ATRAUMATIC - Eye Exam Eye Exam: Normal appearance - ENT Exam ENT Exam: Mucous Membranes Dry - Respiratory Exam Respiratory Exam: NORMAL BREATHING PATTERN - Cardiovascular Exam Cardiovascular Exam: +S1, +S2 - GI/Abdominal Exam GI & Abdominal Exam: Normal Bowel Sounds - Extremities Exam Extremities Exam: Pedal Edema - Neurological Exam Neurological Exam: Altered - Skin Skin Exam: Warm Assessment and Plan (1) Thrombocytopenia Assessment & Plan: liver cirrhosis exacerbated by acute illness transfuse if plt < 20,000 Status: Chronic (2) Anemia Assessment & Plan: chronic disease renal disease hematuria transfusion support PRN Status: Acute
[2018-08-29] MEDS: Proshield Plus GEL TOP SCH ×3 (01:00→18:48)
--- NOTE | 2018-08-29 04:41 | PN ---
DATE: 08/28/2018 FOLLOWUP RENAL CONSULTATION LOCATION: The patient is located in room 435, bed 1. REQUESTED BY: Chintan Wayne M.D. REASON FOR FOLLOWUP: Acute renal failure, continuation of hemodialysis, for further evaluation. SUBJECTIVE: Mrs. Sheth is an 82-year-old elderly female with a past medical history significant for longstanding hypertension, pulmonary hypertension, COPD, cirrhosis of the liver, CHF, who was admitted with cough, shortness of breath, and being treated for pneumonia initially. Subsequently, developed bilateral pleural effusion requiring thoracentesis x2 and also her hospital course was complicated by acute renal failure, requiring initiation of hemodialysis, with lethargy. The patient is feeling much better, not in acute distress. Denies any complaints. Claims that she is feeling better on hemodialysis. PHYSICAL EXAMINATION: VITAL SIGNS: As follows: Blood pressure this morning 135/56, pulse 91, respirations about 27, temperature 98.1, and saturation 99%. Height 4 feet 11 inches and weight is 132 pounds. GENERAL: Mrs. Sheth is an 82-year-old elderly female, moderately built, moderately nourished, not in acute distress. HEENT: Pupils normal, reactive to light and accommodation. Conjunctivae pink, sclerae anicteric. Tongue is moist. Trachea is midline. LUNGS: Symmetric on both sides. Bilateral breath sounds present. Bilateral basal crackles present; right more than the left. CARDIOVASCULAR SYSTEM: [place] at the fifth intercostal space, midclavicular line. S1 and S2 audible. No murmur. No gallop. Irregularly irregular. ABDOMEN: Normal in appearance, soft, tympanitic. No guarding. No rigidity. No hepatosplenomegaly. CENTRAL NERVOUS SYSTEM: The patient is alert, awake, and oriented x3. Nonfocal neuro examination. Cranial nerves II to XII are grossly intact. Sensory and motor system is within normal limits. EXTREMITIES: No cyanosis, no clubbing, no edema in the lower extremities. The patient has 1 to 2+ edema in both upper extremities. CURRENT MEDICATIONS: Include as follows: Hectorol 2 mcg three times a week during dialysis, lidocaine patch, Pepcid 20 mg p.o. b.i.d., Epogen 10,000 units three times a week Monday, Monday, Monday, Spiriva 18 mcg inhaler daily, Tylenol, rifaximin is on hold, Zaroxolyn is on hold. LABORATORY DATA: As of 08/28/2018, WBC 9.2, hemoglobin 9.8, hematocrit is 28.5, and platelets 28. Sodium 139, potassium 4.2, chloride 105, CO2 of 29, BUN 44, creatinine 1.9, glucose 175, calcium 9, phosphorus 3, magnesium 2. Total bilirubin 1.9, AST 42, ALT 46, alkaline phosphatase 71, total protein 5.9, albumin is 2.6. Chest x-ray as of 08/28/2018, left upper extremity PICC line unchanged, right internal jugular access, tunneled dialysis catheter unchanged. Impression, right larger than the left small pleural effusions. ASSESSMENT AND PLAN: In summary, Mrs. Sheth is an 82-year-old elderly female with a history of hypertension, diabetes, chronic obstructive pulmonary disease, pulmonary hypertension, [id number] cirrhosis of the liver, congestive heart failure, bilateral pleural effusions, and acute renal failure, on hemodialysis. 1. Oliguric acute renal failure, continue hemodialysis three times a week, Monday, Monday, and Monday and we will try to ultrafilter as much as the patient can tolerate. 2. Hypertension. 3. Atrial fibrillation. 4. Cirrhosis of the liver. 5. Bilateral effusion. 6. Anemia. 7. Thrombocytopenia, most likely secondary to cirrhosis of the liver. Continue to monitor platelets and follow up with Hematology. The patient is for hemodialysis in a.m. as tolerated. Thank you for allowing me to participate in your patient's care. Case discussed with the coating engineer in rounds, Dr. Anderson. Lalita Stovall MD
[2018-08-29 05:54] LABS: MEAN CELL VOLUME 101.7 fl (81.0-99.0); MEAN CORPUSCULAR HEMOGLOBIN 33.8 pg (27.0-31.0); MEAN CORPUSCULAR HGB CONC 33.3 g/dL (33.0-37.0); RBC 2.95 Mil/uL (3.80-5.20); RED CELL DISTRIBUTION WIDTH 17.2 % (11.5-14.5)
[2018-08-29 06:24] LABS: ALB/GLOB RATIO 0.8 (1.0-2.1); ALBUMIN 2.8 g/dL (3.5-5.0); ALT/SGPT 59 U/L (9-52); AST/SGOT 51 U/L (14-36); BLOOD UREA NITROGEN 54 mg/dl (7-17); GFR NON-AFRICAN AMERICAN 24
[2018-08-29] MEDS: Insulin Regular 100 units/ml SC SCH ×5 (06:35→22:48)
[2018-08-29 06:45] LABS: FERRITIN > 1000.0 ng/Ml (11.1-264.0)
[2018-08-29] MEDS: Mag&Al/Simet/Diphen/Lido 237 ML KIT PO SCH ×3 (09:44→18:42)
[2018-08-29] MEDS: Lidocaine 5% Patch TD SCH (09:45)
[2018-08-29] MEDS: Tiotropium 18 mcg Cap For Inhalation INH SCH (09:45)
--- NOTE | 2018-08-29 09:45 | RAD ---
Date of service: 08/20/2018 HISTORY: CHF COMPARISON: Portable chest 08/15/2018. FINDINGS: LUNGS: Trace opacity is seen at the mid to inferior right lung zone suspicious for infiltrate with none on the left. Linear atelectasis or fibrosis is reiterated at the mid to inferior left lung zones. PLEURA: Right pleural effusion is felt to present but likely mild severity. Generator from permanent cardiac pacemaker obscures right hemithorax somewhat. CARDIOVASCULAR: Calcific atherosclerotic changes are seen related to the thoracic aorta. Cardiomegaly reiterated. No pulmonary vascular congestion. Permanent cardiac pacemaker reiterated. OSSEOUS STRUCTURES: No significant abnormalities. VISUALIZED UPPER ABDOMEN: Normal. OTHER FINDINGS: None. IMPRESSION: Interval infiltrate right mid to inferior lung zones and likely mild right pleural effusion. Generator from permanent cardiac pacemaker obscures inferior right lung zone. Cardiomegaly stable. No pulmonary vascular congestion.
--- NOTE | 2018-08-29 10:07 | CP.PCM.PN ---
Subjective - Date & Time of Evaluation Date of Evaluation: 08/29/18 Time of Evaluation: 10:09 - Subjective Subjective: MORE AWAKE AND RESPONSIVE TOLERATING DIET ABLE TO PERTAKE IN PT Objective - Vital Signs/Intake and Output Vital Signs (last 24 hours): Temp Pulse Resp BP Pulse Ox 98 F 87 20 144/57 L 100 08/29/18 04:00 08/29/18 06:00 08/29/18 06:00 08/29/18 06:00 08/29/18 06:00 Intake and Output: 08/29/18 08/29/18 06:59 18:59 Intake Total 140 Output Total 175 Balance -35 - Medications Medications: Current Medications Acetaminophen (Tylenol 325mg Tab) 650 mg PO Q6 PRN PRN Reason: Pain 1-10 Anastrozole (Arimidex 1 Mg Tab) 1 mg PO DAILY [facility] Last Admin: 08/22/18 09:00 Dose: Not Given Benzocaine/Menthol (Cepacol Sore Throat) 1 malu PO Q2 PRN PRN Reason: Sore Throat Calcium Acetate (Phoslo) 667 mg PO DAILY [facility] Last Admin: 08/22/18 10:00 Dose: Not Given Dextrose (Dextrose 50% Inj) 0 ml IV STAT PRN; Protocol PRN Reason: Hypoglycemia Protocol Dextrose (Glutose 15) 0 gm PO ONCE PRN; Protocol PRN Reason: Hypoglycemia Protocol Dimethicone (Proshield Plus Skin Protectant) 1 applic TOP Q8 [facility] Last Admin: 08/29/18 09:48 Dose: 1 applic Doxercalciferol (Hectorol) 2 mcg IV MWF [facility] Last Admin: 08/27/18 17:58 Dose: Not Given Epoetin Theron (Procrit) 10,000 unit IV MWF [facility] Last Admin: 08/27/18 11:19 Dose: 10,000 unit Ergocalciferol (Drisdol 50,000 Intl Units Cap) 1 cap PO QWK [facility] Escitalopram Oxalate (Lexapro) 20 mg PO DAILY [facility] Famotidine (Pepcid) 20 mg PO BID [facility] Last Admin: 08/29/18 09:45 Dose: 20 mg Furosemide (Lasix) 40 mg IVP BID [facility] Glucagon (Glucagen Diagnostic Kit) 0 mg IM STAT PRN; Protocol PRN Reason: Hypoglycemia Protocol Guaifenesin/Dextromethorphan (Robitussin Dm) 10 ml PO Q6 PRN PRN Reason: Cough Last Admin: 08/23/18 10:05 Dose: 10 ml Diltiazem HCl 125 mg/ Sodium (Chloride) 125 mls @ 5 mls/hr IV .Q24H ONE; Protocol Stop: 08/29/18 14:04 Last Admin: 08/28/18 16:59 Dose: 5 mg/hr, 5 mls/hr Insulin Detemir (Levemir) 15 units SC HS [facility] Insulin Human Lispro (Humalog) 10 units SC TIDAC [facility] Last Admin: 08/22/18 12:31 Dose: Not Given Insulin Human Regular (Humulin R) 0 units SC ACCU-CHECK [facility]; Protocol Last Admin: 08/29/18 06:35 Dose: 3 unit Lactulose (Enulose) 20 gm PO TID [facility] Last Admin: 08/25/18 08:24 Dose: 20 gm Lidocaine (Lidoderm) 1 ea TD DAILY [facility] Last Admin: 08/29/18 09:45 Dose: 1 ea Lidocaine HCl (Lidocaine 2% Viscous) 15 ml PO Q8H PRN PRN Reason: dysphagia Last Admin: 08/28/18 13:43 Dose: 15 ml Losartan Potassium (Cozaar) 50 mg PO DAILY [facility] Metolazone (Zaroxolyn) 2.5 mg PO DAILY [facility] Phenol/Menthol (Phenaseptic 1.4% Throat [place]) 1 spry MT Q2 PRN PRN Reason: Pain, Mild (1-3) Last Admin: 08/27/18 20:32 Dose: 1 spray Rifaximin (Xifaxan) 550 mg PO BID [facility]; Protocol Last Admin: 08/22/18 09:07 Dose: Not Given Saliva Substitute (First Magic Mouthwash) 5 ml PO TID [facility] Last Admin: 08/29/18 09:44 Dose: 5 ml Sitagliptin Phosphate (Januvia) 25 mg PO DAILY [facility] Last Admin: 08/22/18 09:01 Dose: Not Given Tiotropium [place] (Spiriva) 18 mcg INH DAILY [facility] Last Admin: 08/29/18 09:45 Dose: 18 mcg - Labs Labs: 08/29/18 04:50 08/29/18 05:15 PT 15.7 Seconds (9.8-13.1) H 08/24/18 06:45 INR 1.4 08/24/18 06:45 APTT 32.2 Seconds (25.6-37.1) 08/24/18 06:45 - Constitutional Appears: No Acute Distress - Head Exam Head Exam: ATRAUMATIC, NORMAL INSPECTION, NORMOCEPHALIC - Eye Exam Eye Exam: EOMI, Normal appearance, PERRL Pupil Exam: NORMAL ACCOMODATION, PERRL - ENT Exam ENT Exam: Mucous Membranes Moist, Normal Exam - Neck Exam Neck Exam: Full ROM, Normal Inspection. absent: Lymphadenopathy - Respiratory Exam Respiratory Exam: Prolonged Expiratory Phase, Rales, NORMAL BREATHING PATTERN - Cardiovascular Exam Cardiovascular Exam: REGULAR RHYTHM, +S1, +S2. absent: Murmur - GI/Abdominal Exam GI & Abdominal Exam: Soft, Normal Bowel Sounds. absent: Tenderness - Rectal Exam Rectal Exam: NORMAL INSPECTION - Extremities Exam Extremities Exam: Full ROM, Normal Capillary Refill, Normal Inspection. 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
--- NOTE | 2018-08-29 10:28 | CP.PCM.PN ---
Subjective - Date & Time of Evaluation Date of Evaluation: 08/29/18 Time of Evaluation: 10:28 - Subjective Subjective: pt is seen and examined, follow up consult is dictated #[phone] for hd today, uf goal is about 2 lit Objective - Vital Signs/Intake and Output Vital Signs (last 24 hours): Temp Pulse Resp BP Pulse Ox 98 F 87 20 144/57 L 100 08/29/18 04:00 08/29/18 06:00 08/29/18 06:00 08/29/18 06:00 08/29/18 06:00 Intake and Output: 08/29/18 08/29/18 06:59 18:59 Intake Total 140 Output Total 175 Balance -35 - Medications Medications: Current Medications Acetaminophen (Tylenol 325mg Tab) 650 mg PO Q6 PRN PRN Reason: Pain 1-10 Anastrozole (Arimidex 1 Mg Tab) 1 mg PO DAILY [facility] Last Admin: 08/22/18 09:00 Dose: Not Given Benzocaine/Menthol (Cepacol Sore Throat) 1 malu PO Q2 PRN PRN Reason: Sore Throat Calcium Acetate (Phoslo) 667 mg PO DAILY [facility] Last Admin: 08/22/18 10:00 Dose: Not Given Dextrose (Dextrose 50% Inj) 0 ml IV STAT PRN; Protocol PRN Reason: Hypoglycemia Protocol Dextrose (Glutose 15) 0 gm PO ONCE PRN; Protocol PRN Reason: Hypoglycemia Protocol Dimethicone (Proshield Plus Skin Protectant) 1 applic TOP Q8 [facility] Last Admin: 08/29/18 09:48 Dose: 1 applic Doxercalciferol (Hectorol) 2 mcg IV MWF [facility] Last Admin: 08/27/18 17:58 Dose: Not Given Epoetin Theron (Procrit) 10,000 unit IV MWF [facility] Last Admin: 08/27/18 11:19 Dose: 10,000 unit Ergocalciferol (Drisdol 50,000 Intl Units Cap) 1 cap PO QWK [facility] Escitalopram Oxalate (Lexapro) 20 mg PO DAILY [facility] Famotidine (Pepcid) 20 mg PO BID [facility] Last Admin: 08/29/18 09:45 Dose: 20 mg Furosemide (Lasix) 40 mg IVP BID [facility] Glucagon (Glucagen Diagnostic Kit) 0 mg IM STAT PRN; Protocol PRN Reason: Hypoglycemia Protocol Guaifenesin/Dextromethorphan (Robitussin Dm) 10 ml PO Q6 PRN PRN Reason: Cough Last Admin: 08/23/18 10:05 Dose: 10 ml Diltiazem HCl 125 mg/ Sodium (Chloride) 125 mls @ 5 mls/hr IV .Q24H [facility]; Protocol Stop: 08/29/18 14:04 Last Admin: 08/28/18 16:59 Dose: 5 mg/hr, 5 mls/hr Insulin Detemir (Levemir) 15 units SC HS [facility] Insulin Human Lispro (Humalog) 10 units SC TIDAC [facility] Last Admin: 08/22/18 12:31 Dose: Not Given Insulin Human Regular (Humulin R) 0 units SC ACCU-CHECK [facility]; Protocol Last Admin: 08/29/18 06:35 Dose: 3 unit Lactulose (Enulose) 20 gm PO TID [facility] Last Admin: 08/25/18 08:24 Dose: 20 gm Lidocaine (Lidoderm) 1 ea TD DAILY [facility] Last Admin: 08/29/18 09:45 Dose: 1 ea Lidocaine HCl (Lidocaine 2% Viscous) 15 ml PO Q8H PRN PRN Reason: dysphagia Last Admin: 08/28/18 13:43 Dose: 15 ml Losartan Potassium (Cozaar) 50 mg PO DAILY [facility] Metolazone (Zaroxolyn) 2.5 mg PO DAILY [facility] Phenol/Menthol (Phenaseptic 1.4% Throat [place]) 1 spry MT Q2 PRN PRN Reason: Pain, Mild (1-3) Last Admin: 08/27/18 20:32 Dose: 1 spray Rifaximin (Xifaxan) 550 mg PO BID [facility]; Protocol Last Admin: 08/22/18 09:07 Dose: Not Given Saliva Substitute (First Magic Mouthwash) 5 ml PO TID [facility] Last Admin: 08/29/18 09:44 Dose: 5 ml Sitagliptin Phosphate (Januvia) 25 mg PO DAILY [facility] Last Admin: 08/22/18 09:01 Dose: Not Given Tiotropium [place] (Spiriva) 18 mcg INH DAILY [facility] Last Admin: 08/29/18 09:45 Dose: 18 mcg - Labs Labs: 08/29/18 04:50 08/29/18 05:15 PT 15.7 Seconds (9.8-13.1) H 08/24/18 06:45 INR 1.4 08/24/18 06:45 APTT 32.2 Seconds (25.6-37.1) 08/24/18 06:45
--- NOTE | 2018-08-29 13:03 | CP.PCM.PN ---
Subjective - Date & Time of Evaluation Date of Evaluation: 08/29/18 Time of Evaluation: 07:00 - Subjective Subjective: afebrile off merrem Objective - Vital Signs/Intake and Output Vital Signs (last 24 hours): Temp Pulse Resp BP Pulse Ox 98.2 F 88 22 138/61 98 08/29/18 12:00 08/29/18 12:00 08/29/18 12:00 08/29/18 12:00 08/29/18 12:00 Intake and Output: 08/29/18 08/29/18 06:59 18:59 Intake Total 140 Output Total 175 Balance -35 - Medications Medications: Current Medications Acetaminophen (Tylenol 325mg Tab) 650 mg PO Q6 PRN PRN Reason: Pain 1-10 Anastrozole (Arimidex 1 Mg Tab) 1 mg PO DAILY [facility] Last Admin: 08/22/18 09:00 Dose: Not Given Benzocaine/Menthol (Cepacol Sore Throat) 1 malu PO Q2 PRN PRN Reason: Sore Throat Calcium Acetate (Phoslo) 667 mg PO DAILY [facility] Last Admin: 08/22/18 10:00 Dose: Not Given Carvedilol (Coreg) 6.25 mg PO Q12 [facility] Dextrose (Dextrose 50% Inj) 0 ml IV STAT PRN; Protocol PRN Reason: Hypoglycemia Protocol Dextrose (Glutose 15) 0 gm PO ONCE PRN; Protocol PRN Reason: Hypoglycemia Protocol Diltiazem HCl (Cardizem) 60 mg PO Q12 [facility] Dimethicone (Proshield Plus Skin Protectant) 1 applic TOP Q8 [facility] Last Admin: 08/29/18 09:48 Dose: 1 applic Doxercalciferol (Hectorol) 2 mcg IV MWF [facility] Last Admin: 08/27/18 17:58 Dose: Not Given Epoetin Theron (Procrit) 10,000 unit IV MWF [facility] Last Admin: 08/27/18 11:19 Dose: 10,000 unit Ergocalciferol (Drisdol 50,000 Intl Units Cap) 1 cap PO QWK [facility] Escitalopram Oxalate (Lexapro) 20 mg PO DAILY [facility] Famotidine (Pepcid) 20 mg PO BID [facility] Last Admin: 08/29/18 09:45 Dose: 20 mg Furosemide (Lasix) 40 mg IVP BID [facility] Glucagon (Glucagen Diagnostic Kit) 0 mg IM STAT PRN; Protocol PRN Reason: Hypoglycemia Protocol Guaifenesin/Dextromethorphan (Robitussin Dm) 10 ml PO Q6 PRN PRN Reason: Cough Last Admin: 08/23/18 10:05 Dose: 10 ml Diltiazem HCl 125 mg/ Sodium (Chloride) 125 mls @ 5 mls/hr IV .Q24H [facility]; Protocol Stop: 08/29/18 14:04 Last Admin: 08/28/18 16:59 Dose: 5 mg/hr, 5 mls/hr Insulin Detemir (Levemir) 15 units SC HS [facility] Insulin Human Lispro (Humalog) 10 units SC TIDAC [facility] Last Admin: 08/22/18 12:31 Dose: Not Given Insulin Human Regular (Humulin R) 0 units SC ACCU-CHECK [facility]; Protocol Last Admin: 08/29/18 11:44 Dose: 3 unit Lactulose (Enulose) 20 gm PO TID [facility] Last Admin: 08/25/18 08:24 Dose: 20 gm Lidocaine (Lidoderm) 1 ea TD DAILY [facility] Last Admin: 08/29/18 09:45 Dose: 1 ea Lidocaine HCl (Lidocaine 2% Viscous) 15 ml PO Q8H PRN PRN Reason: dysphagia Last Admin: 08/28/18 13:43 Dose: 15 ml Losartan Potassium (Cozaar) 50 mg PO DAILY [facility] Metolazone (Zaroxolyn) 2.5 mg PO DAILY [facility] Phenol/Menthol (Phenaseptic 1.4% Throat [place]) 1 spry MT Q2 PRN PRN Reason: Pain, Mild (1-3) Last Admin: 08/27/18 20:32 Dose: 1 spray Rifaximin (Xifaxan) 550 mg PO BID [facility]; Protocol Last Admin: 08/22/18 09:07 Dose: Not Given Saliva Substitute (First Magic Mouthwash) 5 ml PO TID [facility] Last Admin: 08/29/18 09:44 Dose: 5 ml Sitagliptin Phosphate (Januvia) 25 mg PO DAILY [facility] Last Admin: 08/22/18 09:01 Dose: Not Given Tiotropium [place] (Spiriva) 18 mcg INH DAILY [facility] Last Admin: 08/29/18 09:45 Dose: 18 mcg - Labs Labs: 08/29/18 04:50 08/29/18 05:15 PT 15.7 Seconds (9.8-13.1) H 08/24/18 06:45 INR 1.4 08/24/18 06:45 APTT 32.2 Seconds (25.6-37.1) 08/24/18 06:45 - Constitutional Appears: Non-toxic, Cachectic, Chronically Ill - Head Exam Head Exam: NORMOCEPHALIC - Eye Exam Eye Exam: absent: Scleral icterus - ENT Exam ENT Exam: Mucous Membranes Dry - Neck Exam Neck Exam: absent: Lymphadenopathy - Respiratory Exam Respiratory Exam: Decreased Breath Sounds - Cardiovascular Exam Cardiovascular Exam: REGULAR RHYTHM, +S1, +S2 - GI/Abdominal Exam GI & Abdominal Exam: Distended - Rectal Exam Rectal Exam: Deferred - Exam Exam: NORMAL INSPECTION Assessment and Plan (1) CHF (congestive heart failure) Status: Acute (2) HCAP (healthcare-associated pneumonia) Status: Acute (3) Pleural effusion Status: Acute (4) Acute diastolic heart failure due to valvular disease Status: Acute (5) Acute dyspnea Status: Acute (6) Acute renal failure Status: Acute - Assessment and Plan (Free Text) Assessment: Merrem on hold cont HD supportive care
[2018-08-29] MEDS: diltiaZEM 120 mg/24 Hours CD Cap PO SCH ×2 (13:47→14:13)
[2018-08-29] MEDS: EPOETIN ALFA 10,000 UNIT/ML ML IV SCH (16:39)
--- NOTE | 2018-08-29 16:45 | CP.CCUPN ---
CCU Subjective - Physician Review Subjective (Free Text): Marked improvement in neuromental status noted, interactive with family today. Afebrile, no fever spikes, last 24H, SBP 130-140sm HR 90s A Fib, RR 17; 98% SPO2 on NC. ROS: No other pertinent negs or positives on 10+ system review. PMSFH: All other Nursing and physician documentation reviewed to date; no new pertinent info noted relevant to current medical problems. EXAM- HEENT: no icterus, no gaze preference NECK: No JVD visible, supple, carotids equal upstroke bilat/no bruit. CHEST: decreased BS at the bases, especially R base; no wheezes audible bilaterally. HEART: irregular, distant, S1S2, no rubs or murmurs noted ABD: soft, nontender, no guarding, no organomegaly, BS hypoactive, lower abd wall ecchymoses. EXT: +1 leg edema, no calf tenderness or palpable cords, distal pulses faint but symmetrical. NEURO: withdraws to pain, + tone in all extremities. SKIN: no rashes, warm and dry LABS: WBC= 8.0 HGB= 10.0 PLTs= 101K Na= 140 K= 4.3 CL= 105 HCO3= 28 BUN/Cr= 54/2.0 BS= 246 IMPRESSION / MAJOR PROBLEMS NOW: 1. Acute resp insuff 2 Pleural effusion ( r/o parapneumonic / pneumonia process) and s/p R Thora. 2. Hypotension / Shock 2 Hypovolemia / antiHTN meds-Diuretics. 3. Metabolic Encephalopathy (Azotemia, Hyperammonianemia), r/o Toxic Drug effect (Lexapro) 4. Hyponatremia 2 Hypovolemia / Diuretics 5. s/p Abdominal Wall Hematoma 6. Chronic A fib with controlled VR, PPM. PLAN: 1. Remains in A fib. With rate 90, on Cardizem drip, to be converted to PO formulation as continuation of home med. No AC noted. 2. HD scheduled for today. 3. Check repeat CXR 4. Will hold on BiPAP for now, no distress on nasal cannula.
[2018-08-29 17:50] LABS: FOLATE 10.2 ng/mL
[2018-08-29] MEDS: Doxercalciferol 4 mcg/2 ml Inj IV SCH (18:43)
--- NOTE | 2018-08-29 18:51 | CP.PCM.PN ---
Subjective - Date & Time of Evaluation Date of Evaluation: 08/29/18 Time of Evaluation: 18:45 - Subjective Subjective: 82 year old female known to me who had transient hematuria pt has low platlets and gomez in place draining clear urine. 08/25/18 ct shows multiple small calcifactions kidney stones (non obstructing) or vasc calcifications pt is being Dialized.. Hematuria prob due to gomez+ coaguopathy insignificant renal calculi. Do not recomend any eval or therapy in this very sick pt [place] Objective - Vital Signs/Intake and Output Vital Signs (last 24 hours): Temp Pulse Resp BP Pulse Ox 97.4 F L 92 H 21 128/64 98 08/29/18 16:00 08/29/18 18:29 08/29/18 18:29 08/29/18 18:29 08/29/18 18:29 Intake and Output: 08/29/18 08/29/18 06:59 18:59 Intake Total 140 Output Total 175 Balance -35 - Medications Medications: Current Medications Acetaminophen (Tylenol 325mg Tab) 650 mg PO Q6 PRN PRN Reason: Pain 1-10 Anastrozole (Arimidex 1 Mg Tab) 1 mg PO DAILY [facility] Last Admin: 08/22/18 09:00 Dose: Not Given Benzocaine/Menthol (Cepacol Sore Throat) 1 malu PO Q2 PRN PRN Reason: Sore Throat Calcium Acetate (Phoslo) 667 mg PO DAILY [facility] Last Admin: 08/22/18 10:00 Dose: Not Given Carvedilol (Coreg) 6.25 mg PO Q12 [facility] Dextrose (Dextrose 50% Inj) 0 ml IV STAT PRN; Protocol PRN Reason: Hypoglycemia Protocol Dextrose (Glutose 15) 0 gm PO ONCE PRN; Protocol PRN Reason: Hypoglycemia Protocol Diltiazem HCl (Cardizem) 30 mg PO QID [facility] Last Admin: 08/29/18 18:29 Dose: 30 mg Dimethicone (Proshield Plus Skin Protectant) 1 applic TOP Q8 [facility] Last Admin: 08/29/18 09:48 Dose: 1 applic Doxercalciferol (Hectorol) 2 mcg IV MWF [facility] Last Admin: 08/29/18 18:43 Dose: Not Given Epoetin Theron (Procrit) 10,000 unit IV MWF [facility] Last Admin: 08/29/18 16:39 Dose: 10,000 unit Ergocalciferol (Drisdol 50,000 Intl Units Cap) 1 cap PO QWK [facility] Escitalopram Oxalate (Lexapro) 20 mg PO DAILY [facility] Famotidine (Pepcid) 20 mg PO BID [facility] Last Admin: 08/29/18 09:45 Dose: 20 mg Furosemide (Lasix) 40 mg IVP BID [facility] Glucagon (Glucagen Diagnostic Kit) 0 mg IM STAT PRN; Protocol PRN Reason: Hypoglycemia Protocol Guaifenesin/Dextromethorphan (Robitussin Dm) 10 ml PO Q6 PRN PRN Reason: Cough Last Admin: 08/23/18 10:05 Dose: 10 ml Insulin Detemir (Levemir) 15 units SC HS [facility] Insulin Human Lispro (Humalog) 10 units SC TIDAC [facility] Last Admin: 08/22/18 12:31 Dose: Not Given Insulin Human Regular (Humulin R) 0 units SC ACCU-CHECK [facility]; Protocol Last Admin: 08/29/18 18:40 Dose: 1 unit Lactulose (Enulose) 20 gm PO TID [facility] Last Admin: 08/25/18 08:24 Dose: 20 gm Lidocaine (Lidoderm) 1 ea TD DAILY [facility] Last Admin: 08/29/18 09:45 Dose: 1 ea Lidocaine HCl (Lidocaine 2% Viscous) 15 ml PO Q8H PRN PRN Reason: dysphagia Last Admin: 08/28/18 13:43 Dose: 15 ml Losartan Potassium (Cozaar) 50 mg PO DAILY [facility] Metolazone (Zaroxolyn) 2.5 mg PO DAILY [facility] Phenol/Menthol (Phenaseptic 1.4% Throat [place]) 1 spry MT Q2 PRN PRN Reason: Pain, Mild (1-3) Last Admin: 08/27/18 20:32 Dose: 1 spray Rifaximin (Xifaxan) 550 mg PO BID [facility]; Protocol Last Admin: 08/22/18 09:07 Dose: Not Given Saliva Substitute (First Magic Mouthwash) 5 ml PO TID [facility] Last Admin: 08/29/18 18:42 Dose: 5 ml Sitagliptin Phosphate (Januvia) 25 mg PO DAILY [facility] Last Admin: 08/22/18 09:01 Dose: Not Given Tiotropium [place] (Spiriva) 18 mcg INH DAILY [facility] Last Admin: 08/29/18 09:45 Dose: 18 mcg - Labs Labs: 08/29/18 04:50 08/29/18 05:15 PT 15.7 Seconds (9.8-13.1) H 08/24/18 06:45 INR 1.4 08/24/18 06:45 APTT 32.2 Seconds (25.6-37.1) 08/24/18 06:45
[2018-08-30] MEDS: Proshield Plus GEL TOP SCH ×3 (01:53→18:31)
--- NOTE | 2018-08-30 03:26 | PN ---
DATE: 08/29/2018 FOLLOWUP RENAL CONSULTATION LOCATION: The patient is located in ICU room 435. REQUESTED BY: Chintan Wayne MD REASON FOR FOLLOWUP: Acute renal failure, continuation of hemodialysis. SUBJECTIVE: Mrs. Sheth is an 82-year-old elderly female with a past medical history significant for longstanding hypertension, diabetes, pulmonary hypertension, [id number] tricuspid regurgitation, cirrhosis of the liver, CHF who was initially admitted with cough, shortness of breath, and yellow sputum. The patient was treated for pneumonia and possible CHF, status post thoracentesis x2, and her hospital course complicated by worsening renal function, requiring initiation of the hemodialysis. The patient is on hemodialysis three times a week since last week. The patient is feeling much better. Denies any complaints. Denies any chest pain or palpitation. Denies any shortness of breath. PO intake is slowly improving. The patient is scheduled for hemodialysis this afternoon. UF goal is about 2 L. PHYSICAL EXAMINATION: VITAL SIGNS: As follows: Blood pressure 151/61, pulse 85, respirations 21, temperature 97.1, and saturations 100%. Height 4 feet 11 inches, and weight is 133 pounds. GENERAL: Mrs. Sheth is an 82-year-old elderly female, moderately built, moderately nourished, not in acute distress, on nasal cannula at this time. HEENT: Pupils are normal and reactive to light and accommodation. Conjunctivae pink. Sclerae anicteric. Tongue is moist. Trachea is midline. LUNGS: Symmetrical on both sides. Bilateral breath sounds present. Bilateral basal crackles present, left more than the right. CARDIOVASCULAR SYSTEM: [place] at the fifth intercostal space, midclavicular line. S1 and S2 audible. Irregularly irregular. No murmur or gallop. ABDOMEN: Normal in appearance, soft, tympanitic. No guarding. No rigidity. No hepatosplenomegaly. CENTRAL NERVOUS SYSTEM: The patient is alert, awake, oriented x3. Nonfocal neuro examination. Cranial nerves II through XII grossly intact. Sensory and motor system is within normal limits. EXTREMITIES: No cyanosis, no clubbing, no edema in the lower extremities. The patient has a 1+ to 2+ edema in both upper extremities. CURRENT MEDICATIONS: Include as follows: Diltiazem 30 mg p.o. four times a day, Coreg 6.25 mg p.o. every 12 hours, Lidoderm patch, Pepcid 20 mg p.o. b.i.d., Procrit 10,000 units three times a week on Monday, Monday and Monday, Tylenol, and Spiriva 18 mcg inhaler daily. LABORATORY DATA: Include as follows: As of 08/29/2018: WBC 8, hemoglobin 10, hematocrit is 30, and platelets 31. Sodium 140, potassium 4.3, chloride 105, CO2 of 28, and BUN 54, creatinine 2, glucose is 246, calcium is 10. Ferritin is 1000. Total bili 2.2, AST 51, ALT 59, alkaline phosphatase 78, total protein 6.1, albumin is 2.8. Vitamin B12 more than 1000, folic acid 10.2. IMPRESSION: In summary, Mrs. Sheth is an 82-year-old elderly female with a history of hypertension, diabetes, atrial fibrillation, pulmonary hypertension with tricuspid regurgitation, cirrhosis of the liver who was admitted with cough, shortness of breath, and status treatment for pneumonia and status post thoracentesis with acute renal failure, on hemodialysis three times a week. 1. Oliguric acute renal failure. Continue hemodialysis three times a week until renal function improves. Ultrafiltration goal is about 2 liters. 2. Hypertension. 3. Atrial fibrillation. 4. Mild anemia. 5. Thrombocytopenia, most likely secondary to cirrhosis of the liver. PLAN: Restrict the fluids to 1 L per day and continue Epogen and will discontinue calcitriol after today's dose. We will follow with you. Thank you for allowing me to participate in your patient's care. Lalita Stovall MD
[2018-08-30 05:34] LABS: BASO % 0.3 % (0.0-2.0); EOS # 0.4 K/uL (0.0-0.7); EOS % 6.2 % (0.0-4.0); HEMOGLOBIN 9.5 g/dL (12.0-16.0); LYMPH # 1.3 K/uL (1.0-4.3); LYMPH % 18.2 % (20.0-40.0); MEAN CELL VOLUME 101.7 fl (81.0-99.0); MEAN CORPUSCULAR HEMOGLOBIN 33.6 pg (27.0-31.0); MEAN PLATELET VOLUME 9.3 fl (7.2-11.7); MONO % 13.8 % (0.0-10.0); NEUT # 4.5 K/uL (1.8-7.0); NEUT % 61.5 % (50.0-75.0); NRBC % 0.5 % (0.0-0.0); RBC 2.83 Mil/uL (3.80-5.20); WHITE BLOOD COUNT 7.3 K/uL (4.8-10.8)
[2018-08-30 05:49] LABS: ALB/GLOB RATIO 0.8 (1.0-2.1); ALBUMIN 2.5 g/dL (3.5-5.0); CALCIUM 8.9 mg/dL (8.4-10.2)
--- NOTE | 2018-08-30 08:45 | CON ---
DATE: 07/29/2018 The consultation was called by Dr. Stevie Jenkins. REASON FOR CONSULTATION: Gross hematuria. HISTORY OF PRESENT ILLNESS: The patient is an 84-year-old female who is admitted to the hospital with multiple medical problems including thrombocytopenia, renal failure and many others. She is presently in the ICU. The patient is noted to have gross hematuria which is now resolved. She has a Crane catheter in place and is being dialyzed. The patient is noted to have thrombocytopenia and has received platelets. She has a history of having renal calculi in the past. While in the [facility] on this admission, the patient had a CAT scan of the abdomen and pelvis on 07/25/2018 which shows small calcifications in the kidney, either vascular calcifications or small nonobstructing calculi. The remainder of the urinary system is normal on the CAT scan. She denies any history of dysuria or burning, although she is a poor historian. The family is with her and states that she has had kidney stones in the past, but her medical condition precludes any treatment. Further history is noncontributory. REVIEW OF SYSTEMS: RESPIRATORY SYSTEM: The patient is using oxygen. Has been short of breath. CARDIAC HISTORY: The patient is not complaining of chest pain. GASTROINTESTINAL HISTORY: The patient is not complaining of diarrhea, but change in bowel habits. She is eating and being fed by her daughter while this exam is taking place. ORTHOPEDIC HISTORY: The patient has no history of orthopedic fracture. VASCULAR HISTORY: The patient has no history of vascular insufficiency. SOCIAL AND FAMILY HISTORY: The patient lives in [place]. She has family in the area and lives with her child, Leslie. She is a nonsmoker and nondrinker. PHYSICAL EXAMINATION: VITAL SIGNS: Within normal limits. GENERAL: The patient is awake,alert, but does not appear to be fully oriented. HEAD, EARS, EYES, NOSE, AND THROAT: Within normal limits. NECK: Supple. There are no bruits, nodes or masses. CHEST: Clear. There are basilar rales. ABDOMEN: Soft. Nontender. There is no organomegaly. GENITOURINARY: The patient refuses vaginal examination. EXTREMITIES: There is 1+ pitting edema in the lower extremities. IMPRESSION: My impression is gross hematuria, now resolved. PLAN: This patient is too sick to have any meaningful evaluations. If the CAT scan is negative, simply monitor urine for infection. Crane catheter should be removed when it is no longer useful in management of the patient's renal insufficiency. No further intervention is planned on this admission unless the patient takes a dramatic turn for the better. Toby Miller MD
[2018-08-30] MEDS: Insulin Regular 100 units/ml SC SCH ×4 (08:54→22:25)
[2018-08-30] MEDS: Mag&Al/Simet/Diphen/Lido 237 ML KIT PO SCH ×4 (09:15→18:26)
[2018-08-30] MEDS: Lidocaine 5% Patch TD SCH (09:21)
[2018-08-30] MEDS: Tiotropium 18 mcg Cap For Inhalation INH SCH (09:22)
--- NOTE | 2018-08-30 16:19 | CP.CCUPN ---
CCU Subjective - Physician Review Subjective (Free Text): Stable mental status over the last 24H. Afebrile, no fever spikes, last 24H, SBP 110s, HR 70s A Fib, RR 19; 99% SPO2 on NC. Fluid balance neg 1.7 L last 24H. She remains oliguric. ROS: No other pertinent negs or positives on 10+ system review. PMSFH: All other Nursing and physician documentation reviewed to date; no new pertinent info noted relevant to current medical problems. EXAM- HEENT: no icterus, no gaze preference NECK: No JVD visible, supple, carotids equal upstroke bilat/no bruit. CHEST: decreased BS at the bases, especially R base; no wheezes audible bilaterally. HEART: irregular, distant, S1S2, no rubs or murmurs noted ABD: soft, nontender, no guarding, no organomegaly, BS hypoactive, lower abd wall ecchymoses. EXT: +1 leg edema, no calf tenderness or palpable cords, distal pulses faint but symmetrical. LUE PICC NEURO: withdraws to pain, + tone in all extremities. SKIN: no rashes, warm and dry LABS: WBC= 7.3 HGB= 9.5 PLTs= 16K Na= 137 K= 4.3 CL= 105 HCO3= 27 BUN/Cr= 34/1.7 BS= 151 IMPRESSION / MAJOR PROBLEMS NOW: 1. Acute resp insuff 2 Pleural effusion ( r/o parapneumonic / pneumonia process) and s/p R Thora. 2. Hypotension / Shock 2 Hypovolemia / antiHTN meds-Diuretics. 3. Metabolic Encephalopathy (Azotemia, Hyperammonianemia), r/o Toxic Drug effect (Lexapro) 4. Hyponatremia 2 Hypovolemia / Diuretics 5. s/p Abdominal Wall Hematoma 6. Chronic A fib with controlled VR, PPM. PLAN: 1. Remains in A fib. With rate 90, off Cardizem drip, converted to PO formulation. No AC noted. 2. HD scheduled for today. 3. Check repeat CXR 4. BiPAP on hold for now, no distress on nasal cannula. 5. Needs re-discussion with family over further goals of care, possible palliative care mgmt. Stable to leave ICU with no further need of ICU intervention unless she needs MV / hemodynamic support.
--- NOTE | 2018-08-30 19:26 | CP.PCM.PN ---
Subjective - Date & Time of Evaluation Date of Evaluation: 08/30/18 Time of Evaluation: 19:26 - Subjective Subjective: pt is seen and examined, follow up consult is dictated #[id number] Objective - Vital Signs/Intake and Output Vital Signs (last 24 hours): Temp Pulse Resp BP Pulse Ox 97.8 F 99 H 20 109/50 L 100 08/30/18 16:00 08/30/18 18:00 08/30/18 18:00 08/30/18 18:00 08/30/18 18:00 Intake and Output: 08/30/18 08/31/18 18:59 06:59 Intake Total 632 Output Total 50 Balance 582 - Medications Medications: Current Medications Acetaminophen (Tylenol 325mg Tab) 650 mg PO Q6 PRN PRN Reason: Pain 1-10 Last Admin: 08/29/18 22:49 Dose: 650 mg Anastrozole (Arimidex 1 Mg Tab) 1 mg PO DAILY [facility] Last Admin: 08/22/18 09:00 Dose: Not Given Benzocaine/Menthol (Cepacol Sore Throat) 1 amlu PO Q2 PRN PRN Reason: Sore Throat Calcium Acetate (Phoslo) 667 mg PO DAILY [facility] Last Admin: 08/22/18 10:00 Dose: Not Given Carvedilol (Coreg) 6.25 mg PO Q12 [facility] Last Admin: 08/30/18 08:52 Dose: Not Given Dextrose (Dextrose 50% Inj) 0 ml IV STAT PRN; Protocol PRN Reason: Hypoglycemia Protocol Dextrose (Glutose 15) 0 gm PO ONCE PRN; Protocol PRN Reason: Hypoglycemia Protocol Diltiazem HCl (Cardizem) 30 mg PO QID [facility] Last Admin: 08/30/18 18:00 Dose: 30 mg Dimethicone (Proshield Plus Skin Protectant) 1 applic TOP Q8 [facility] Last Admin: 08/30/18 18:31 Dose: 1 applic Epoetin Theron (Procrit) 10,000 unit IV MWF [facility] Last Admin: 08/29/18 16:39 Dose: 10,000 unit Ergocalciferol (Drisdol 50,000 Intl Units Cap) 1 cap PO QWK [facility] Escitalopram Oxalate (Lexapro) 20 mg PO DAILY [facility] Famotidine (Pepcid) 20 mg PO BID [facility] Last Admin: 08/30/18 18:00 Dose: 20 mg Furosemide (Lasix) 40 mg IVP BID [facility] Glucagon (Glucagen Diagnostic Kit) 0 mg IM STAT PRN; Protocol PRN Reason: Hypoglycemia Protocol Guaifenesin/Dextromethorphan (Robitussin Dm) 10 ml PO Q6 PRN PRN Reason: Cough Last Admin: 08/23/18 10:05 Dose: 10 ml Insulin Detemir (Levemir) 15 units SC HS [facility] Insulin Human Lispro (Humalog) 10 units SC TIDAC [facility] Last Admin: 08/22/18 12:31 Dose: Not Given Insulin Human Regular (Humulin R) 0 units SC ACCU-CHECK [facility]; Protocol Last Admin: 08/30/18 18:26 Dose: Not Given Lactulose (Enulose) 20 gm PO TID [facility] Last Admin: 08/25/18 08:24 Dose: 20 gm Lidocaine (Lidoderm) 1 ea TD DAILY [facility] Last Admin: 08/30/18 09:21 Dose: 1 ea Lidocaine HCl (Lidocaine 2% Viscous) 15 ml PO Q8H PRN PRN Reason: dysphagia Last Admin: 08/29/18 18:50 Dose: 15 ml Losartan Potassium (Cozaar) 50 mg PO DAILY [facility] Metolazone (Zaroxolyn) 2.5 mg PO DAILY [facility] Phenol/Menthol (Phenaseptic 1.4% Throat [place]) 1 spry MT Q2 PRN PRN Reason: Pain, Mild (1-3) Last Admin: 08/27/18 20:32 Dose: 1 spray Rifaximin (Xifaxan) 550 mg PO BID [facility]; Protocol Last Admin: 08/22/18 09:07 Dose: Not Given Saliva Substitute (First Magic Mouthwash) 5 ml PO TID [facility] Last Admin: 08/30/18 18:26 Dose: 5 ml Sitagliptin Phosphate (Januvia) 25 mg PO DAILY [facility] Last Admin: 08/22/18 09:01 Dose: Not Given Tiotropium [place] (Spiriva) 18 mcg INH DAILY [facility] Last Admin: 08/30/18 09:22 Dose: 18 mcg - Labs Labs: 08/30/18 04:41 08/30/18 04:41 PT 15.7 Seconds (9.8-13.1) H 08/24/18 06:45 INR 1.4 08/24/18 06:45 APTT 32.2 Seconds (25.6-37.1) 08/24/18 06:45
--- NOTE | 2018-08-30 21:42 | CP.PCM.PN ---
Subjective - Date & Time of Evaluation Date of Evaluation: 08/30/18 Time of Evaluation: 19:00 - Subjective Subjective: Appears comfortable Objective - Vital Signs/Intake and Output Vital Signs (last 24 hours): Temp Pulse Resp BP Pulse Ox 98.3 F 88 17 146/62 99 08/30/18 20:00 08/30/18 21:09 08/30/18 21:07 08/30/18 21:09 08/30/18 21:07 Intake and Output: 08/30/18 08/31/18 18:59 06:59 Intake Total 632 Output Total 50 Balance 582 - Medications Medications: Current Medications Acetaminophen (Tylenol 325mg Tab) 650 mg PO Q6 PRN PRN Reason: Pain 1-10 Last Admin: 08/29/18 22:49 Dose: 650 mg Anastrozole (Arimidex 1 Mg Tab) 1 mg PO DAILY [facility] Last Admin: 08/22/18 09:00 Dose: Not Given Benzocaine/Menthol (Cepacol Sore Throat) 1 malu PO Q2 PRN PRN Reason: Sore Throat Calcium Acetate (Phoslo) 667 mg PO DAILY [facility] Last Admin: 08/22/18 10:00 Dose: Not Given Carvedilol (Coreg) 6.25 mg PO Q12 [facility] Last Admin: 08/30/18 21:09 Dose: 6.25 mg Dextrose (Dextrose 50% Inj) 0 ml IV STAT PRN; Protocol PRN Reason: Hypoglycemia Protocol Dextrose (Glutose 15) 0 gm PO ONCE PRN; Protocol PRN Reason: Hypoglycemia Protocol Diltiazem HCl (Cardizem) 30 mg PO QID [facility] Last Admin: 08/30/18 21:07 Dose: 30 mg Dimethicone (Proshield Plus Skin Protectant) 1 applic TOP Q8 [facility] Last Admin: 08/30/18 18:31 Dose: 1 applic Epoetin Theron (Procrit) 10,000 unit IV MWF [facility] Last Admin: 08/29/18 16:39 Dose: 10,000 unit Ergocalciferol (Drisdol 50,000 Intl Units Cap) 1 cap PO QWK [facility] Escitalopram Oxalate (Lexapro) 20 mg PO DAILY [facility] Famotidine (Pepcid) 20 mg PO BID [facility] Last Admin: 08/30/18 18:00 Dose: 20 mg Furosemide (Lasix) 40 mg IVP BID [facility] Glucagon (Glucagen Diagnostic Kit) 0 mg IM STAT PRN; Protocol PRN Reason: Hypoglycemia Protocol Guaifenesin/Dextromethorphan (Robitussin Dm) 10 ml PO Q6 PRN PRN Reason: Cough Last Admin: 08/23/18 10:05 Dose: 10 ml Insulin Detemir (Levemir) 15 units SC HS [facility] Insulin Human Lispro (Humalog) 10 units SC TIDAC [facility] Last Admin: 08/22/18 12:31 Dose: Not Given Insulin Human Regular (Humulin R) 0 units SC ACCU-CHECK [facility]; Protocol Last Admin: 08/30/18 18:26 Dose: Not Given Lactulose (Enulose) 20 gm PO TID [facility] Last Admin: 08/25/18 08:24 Dose: 20 gm Lidocaine (Lidoderm) 1 ea TD DAILY [facility] Last Admin: 08/30/18 09:21 Dose: 1 ea Lidocaine HCl (Lidocaine 2% Viscous) 15 ml PO Q8H PRN PRN Reason: dysphagia Last Admin: 08/29/18 18:50 Dose: 15 ml Losartan Potassium (Cozaar) 50 mg PO DAILY [facility] Metolazone (Zaroxolyn) 2.5 mg PO DAILY [facility] Phenol/Menthol (Phenaseptic 1.4% Throat [place]) 1 spry MT Q2 PRN PRN Reason: Pain, Mild (1-3) Last Admin: 08/27/18 20:32 Dose: 1 spray Rifaximin (Xifaxan) 550 mg PO BID [facility]; Protocol Last Admin: 08/22/18 09:07 Dose: Not Given Saliva Substitute (First Magic Mouthwash) 5 ml PO TID [facility] Last Admin: 08/30/18 18:26 Dose: 5 ml Sitagliptin Phosphate (Januvia) 25 mg PO DAILY [facility] Last Admin: 08/22/18 09:01 Dose: Not Given Tiotropium [place] (Spiriva) 18 mcg INH DAILY [facility] Last Admin: 08/30/18 09:22 Dose: 18 mcg - Labs Labs: 08/30/18 04:41 08/30/18 04:41 PT 15.7 Seconds (9.8-13.1) H 08/24/18 06:45 INR 1.4 08/24/18 06:45 APTT 32.2 Seconds (25.6-37.1) 08/24/18 06:45 - Head Exam Head Exam: ATRAUMATIC - Eye Exam Eye Exam: Normal appearance - ENT Exam ENT Exam: Mucous Membranes Dry - Respiratory Exam Respiratory Exam: Decreased Breath Sounds - Cardiovascular Exam Cardiovascular Exam: +S1, +S2 - GI/Abdominal Exam GI & Abdominal Exam: Normal Bowel Sounds Assessment and Plan (1) Thrombocytopenia Assessment & Plan: liver cirrhosis exacerbated by acute illness transfuse if plt < 20,000 Status: Chronic (2) Anemia Assessment & Plan: chronic disease renal disease hematuria transfusion support PRN Status: Acute
[2018-08-31] MEDS: Proshield Plus GEL TOP SCH ×3 (00:25→17:21)
--- NOTE | 2018-08-31 01:15 | PN ---
DATE: 08/30/2018 FOLLOWUP RENAL CONSULTATION LOCATION: The patient is located in room 431, bed 1. REQUISITION BY: Chintan Wayne MD REASON FOR FOLLOWUP: Acute renal failure, continuation of hemodialysis. SUBJECTIVE: Mrs. Sheth is an 82-year-old elderly female with a history of hypertension; diabetes; asthma; pulmonary hypertension; tricuspid regurgitation, [id number] with cirrhosis of the liver who was initially admitted on 08/04/2018 with a chief complaint of cough associated with whitish sputum production, and the patient was treated for pneumonia and CHF, status post bilateral thoracentesis x2. Her hospital course is complicated by acute renal failure, requiring initiation of hemodialysis. The patient is on hemodialysis three times a week since the last week. The patient is feeling slightly better, not in acute distress. Complains of back pain and decubitus. No chest pain. No palpitation. No fever. No cough. No abdominal pain. No nausea. No vomiting. No diarrhea. PHYSICAL EXAMINATION: VITAL SIGNS: As follows: Blood pressure this evening 109/50, pulse 99, respirations 20, temperature 98.3, saturation 100%. Height 4 feet 11 inches, and weight is 133 pounds. GENERAL: Mrs. Sheth is an 82-year-old elderly female, moderately built, moderately nourished, not in acute distress. HEENT: Pupils are normal and reactive to light and accommodation. Conjunctivae pink. Sclerae anicteric. Tongue is moist. Trachea is midline. LUNGS: Symmetric on both sides. Bilateral breath sounds present. Bilateral basal crackles present, right more than the left. CARDIOVASCULAR SYSTEM: Howe at the fifth intercostal space, midclavicular line. S1 and S2 audible. Irregularly irregular. ABDOMEN: Normal in appearance, soft, tympanitic. No guarding. No rigidity. No hepatosplenomegaly. CENTRAL NERVOUS SYSTEM: The patient is alert, awake, oriented x2 to 3. Cranial nerves II through XII grossly intact. Sensory and motor system is within normal limits. EXTREMITIES: No cyanosis, no clubbing, no edema in the lower extremities. The patient has 2+ edema in both upper extremities, right more than left. MEDICATIONS: Include as follows: Cardizem 30 mg p.o. four times a day, Coreg 6.25 mg p.o. every 12 hours, Spiriva 18 mcg inhaler daily, Robitussin DM 10 mL p.o. every 6 hours, Procrit 10,000 units three times a week, Pepcid 20 mg p.o. b.i.d., and lidocaine patch. INTAKE AND OUTPUT: Intake is 234 and output is 2000. Urine output about 300 and ultrafiltration during urinalysis about 1700. I's and O's for the last 12 hours, intake is 632, output is 50 mL. LABORATORY DATA: Include as follows as of 08/30/2018: WBC is 7.3, hemoglobin 9.5, hematocrit 28.8, platelets 16. Sodium 131, potassium 4.3, chloride 105, CO2 of 27, BUN 34, creatinine 1.7, glucose 151, calcium 8.9. Total bili 2.1, AST 48, ALT 52, alkaline phosphatase is 78, total protein 5.8, albumin is 2.5. ASSESSMENT: In summary, Mrs. Sheth is an 82-year-old elderly female with a history of hypertension, diabetes, asthma, pulmonary hypertension, tricuspid regurgitation and cirrhosis of the liver, status post treatment for pneumonia and pleural effusion, status post thoracentesis with acute renal failure, on hemodialysis and anemia and thrombocytopenia. 1. Oliguric acute renal failure, most likely secondary to acute tubular necrosis. 2. Atrial fibrillation. 3. Cirrhosis of the liver. 4. Pleural effusion. 5. Pulmonary hypertension. 6. Tricuspid regurgitation, moderate to severe. PLAN: Continue current medications. We will schedule for hemodialysis in a.m. We will evaluate on Monday. Overall prognosis is guarded. Thank you for allowing me to participate in your patient's care. Discussed with the patients' family at bedside and follow up with Hematology. Lalita Stovall MD
[2018-08-31 06:08] LABS: HEMOGLOBIN 9.1 g/dL (12.0-16.0); MEAN CELL VOLUME 102.9 fl (81.0-99.0); MEAN CORPUSCULAR HEMOGLOBIN 34.1 pg (27.0-31.0); MEAN CORPUSCULAR HGB CONC 33.2 g/dL (33.0-37.0); RBC 2.66 Mil/uL (3.80-5.20); RED CELL DISTRIBUTION WIDTH 18.3 % (11.5-14.5); WHITE BLOOD COUNT 5.8 K/uL (4.8-10.8)
[2018-08-31 07:16] LABS: ALB/GLOB RATIO 0.8 (1.0-2.1); ALBUMIN 2.3 g/dL (3.5-5.0); CALCIUM 9.3 mg/dL (8.4-10.2)
[2018-08-31] MEDS: Insulin Regular 100 units/ml SC SCH ×5 (09:11→22:08)
[2018-08-31] MEDS: Mag&Al/Simet/Diphen/Lido 237 ML KIT PO SCH ×4 (09:11→17:20)
[2018-08-31] MEDS: Lidocaine 5% Patch TD SCH (09:12)
[2018-08-31] MEDS: Tiotropium 18 mcg Cap For Inhalation INH SCH (09:12)
[2018-08-31] MEDS: EPOETIN ALFA 10,000 UNIT/ML ML IV SCH (09:14)
--- NOTE | 2018-08-31 10:38 | RAD ---
Date of service: 08/31/2018 HISTORY: Pleural effusion COMPARISON: Comparison chest dated 08/28/2018 FINDINGS: In situ right IJ central venous line with tip in the SVC unchanged LUNGS: Mild pulmonary venous congestive changes with bilateral effusions and bilateral lower lobe alveolar-type infiltrates. PLEURA: As above. No pneumothorax apparent. CARDIOVASCULAR: Mild aortic atherosclerotic calcification present. Heart appears enlarged. No change bipolar pacemaker/defibrillator OSSEOUS STRUCTURES: Mild multilevel degenerative spondylosis of the thoracic spine VISUALIZED UPPER ABDOMEN: Normal. OTHER FINDINGS: None. IMPRESSION: Mild pulmonary venous congestive changes with bilateral effusions and bilateral lower lobe alveolar-type infiltrates.
--- NOTE | 2018-08-31 11:39 | CP.PCM.PN ---
Subjective - Date & Time of Evaluation Date of Evaluation: 08/31/18 Time of Evaluation: 11:39 - Subjective Subjective: pt is seen and examined, follow up consult is dictated #[id number] seen in hd, uf goal is about 2 lit Objective - Vital Signs/Intake and Output Vital Signs (last 24 hours): Temp Pulse Resp BP Pulse Ox 97.5 F L 74 29 H 112/49 L 100 08/31/18 08:00 08/31/18 09:10 08/31/18 08:00 08/31/18 09:10 08/31/18 08:00 Intake and Output: 08/31/18 08/31/18 06:59 18:59 Intake Total 30 Balance 30 - Medications Medications: Current Medications Acetaminophen (Tylenol 325mg Tab) 650 mg PO Q6 PRN PRN Reason: Pain 1-10 Last Admin: 08/29/18 22:49 Dose: 650 mg Anastrozole (Arimidex 1 Mg Tab) 1 mg PO DAILY [facility] Last Admin: 08/22/18 09:00 Dose: Not Given Benzocaine/Menthol (Cepacol Sore Throat) 1 malu PO Q2 PRN PRN Reason: Sore Throat Calcium Acetate (Phoslo) 667 mg PO DAILY [facility] Last Admin: 08/22/18 10:00 Dose: Not Given Carvedilol (Coreg) 6.25 mg PO Q12 [facility] Last Admin: 08/31/18 09:10 Dose: Not Given Dextrose (Dextrose 50% Inj) 0 ml IV STAT PRN; Protocol PRN Reason: Hypoglycemia Protocol Dextrose (Glutose 15) 0 gm PO ONCE PRN; Protocol PRN Reason: Hypoglycemia Protocol Diltiazem HCl (Cardizem) 30 mg PO QID [facility] Last Admin: 08/31/18 09:09 Dose: Not Given Dimethicone (Proshield Plus Skin Protectant) 1 applic TOP Q8 [facility] Last Admin: 08/31/18 09:12 Dose: 1 applic Epoetin Theron (Procrit) 10,000 unit IV MWF [facility] Last Admin: 08/31/18 09:14 Dose: 10,000 unit Ergocalciferol (Drisdol 50,000 Intl Units Cap) 1 cap PO QWK [facility] Escitalopram Oxalate (Lexapro) 20 mg PO DAILY [facility] Famotidine (Pepcid) 20 mg PO BID [facility] Last Admin: 08/31/18 09:12 Dose: 20 mg Furosemide (Lasix) 40 mg IVP BID [facility] Glucagon (Glucagen Diagnostic Kit) 0 mg IM STAT PRN; Protocol PRN Reason: Hypoglycemia Protocol Guaifenesin/Dextromethorphan (Robitussin Dm) 10 ml PO Q6 PRN PRN Reason: Cough Last Admin: 08/23/18 10:05 Dose: 10 ml Insulin Detemir (Levemir) 15 units SC HS [facility] Insulin Human Lispro (Humalog) 10 units SC TIDAC [facility] Last Admin: 08/22/18 12:31 Dose: Not Given Insulin Human Regular (Humulin R) 0 units SC ACCU-CHECK [facility]; Protocol Last Admin: 08/31/18 09:11 Dose: 2 unit Lactulose (Enulose) 20 gm PO TID [facility] Last Admin: 08/25/18 08:24 Dose: 20 gm Lidocaine (Lidoderm) 1 ea TD DAILY [facility] Last Admin: 08/31/18 09:12 Dose: 1 ea Lidocaine HCl (Lidocaine 2% Viscous) 15 ml PO Q8H PRN PRN Reason: dysphagia Last Admin: 08/29/18 18:50 Dose: 15 ml Losartan Potassium (Cozaar) 50 mg PO DAILY [facility] Metolazone (Zaroxolyn) 2.5 mg PO DAILY [facility] Phenol/Menthol (Phenaseptic 1.4% Throat [place]) 1 spry MT Q2 PRN PRN Reason: Pain, Mild (1-3) Last Admin: 08/27/18 20:32 Dose: 1 spray Rifaximin (Xifaxan) 550 mg PO BID [facility]; Protocol Last Admin: 08/22/18 09:07 Dose: Not Given Saliva Substitute (First Magic Mouthwash) 5 ml PO TID [facility] Last Admin: 08/31/18 09:11 Dose: 5 ml Sitagliptin Phosphate (Januvia) 25 mg PO DAILY [facility] Last Admin: 08/22/18 09:01 Dose: Not Given Tiotropium [place] (Spiriva) 18 mcg INH DAILY [facility] Last Admin: 08/31/18 09:12 Dose: 18 mcg - Labs Labs: 08/31/18 05:30 08/31/18 05:30 PT 15.7 Seconds (9.8-13.1) H 08/24/18 06:45 INR 1.4 08/24/18 06:45 APTT 32.2 Seconds (25.6-37.1) 08/24/18 06:45
--- NOTE | 2018-08-31 12:42 | CP.PCM.PN ---
Subjective - Date & Time of Evaluation Date of Evaluation: 08/31/18 Time of Evaluation: 12:42 - Subjective Subjective: DIALYSIS IN PROGRESS AWAKE AND ALERT SOB IMPROVED Objective - Vital Signs/Intake and Output Vital Signs (last 24 hours): Temp Pulse Resp BP Pulse Ox 97.2 F L 76 17 113/55 L 100 08/31/18 12:00 08/31/18 12:00 08/31/18 12:00 08/31/18 12:00 08/31/18 12:00 Intake and Output: 08/31/18 08/31/18 06:59 18:59 Intake Total 30 Balance 30 - Medications Medications: Current Medications Acetaminophen (Tylenol 325mg Tab) 650 mg PO Q6 PRN PRN Reason: Pain 1-10 Last Admin: 08/29/18 22:49 Dose: 650 mg Anastrozole (Arimidex 1 Mg Tab) 1 mg PO DAILY [facility] Last Admin: 08/22/18 09:00 Dose: Not Given Benzocaine/Menthol (Cepacol Sore Throat) 1 malu PO Q2 PRN PRN Reason: Sore Throat Calcium Acetate (Phoslo) 667 mg PO DAILY [facility] Last Admin: 08/22/18 10:00 Dose: Not Given Carvedilol (Coreg) 6.25 mg PO Q12 [facility] Last Admin: 08/31/18 09:10 Dose: Not Given Dextrose (Dextrose 50% Inj) 0 ml IV STAT PRN; Protocol PRN Reason: Hypoglycemia Protocol Dextrose (Glutose 15) 0 gm PO ONCE PRN; Protocol PRN Reason: Hypoglycemia Protocol Diltiazem HCl (Cardizem) 30 mg PO QID [facility] Last Admin: 08/31/18 09:09 Dose: Not Given Dimethicone (Proshield Plus Skin Protectant) 1 applic TOP Q8 [facility] Last Admin: 08/31/18 09:12 Dose: 1 applic Epoetin Theron (Procrit) 10,000 unit IV MWF [facility] Last Admin: 08/31/18 09:14 Dose: 10,000 unit Ergocalciferol (Drisdol 50,000 Intl Units Cap) 1 cap PO QWK [facility] Escitalopram Oxalate (Lexapro) 20 mg PO DAILY [facility] Famotidine (Pepcid) 20 mg PO BID [facility] Last Admin: 08/31/18 09:12 Dose: 20 mg Furosemide (Lasix) 40 mg IVP BID [facility] Glucagon (Glucagen Diagnostic Kit) 0 mg IM STAT PRN; Protocol PRN Reason: Hypoglycemia Protocol Guaifenesin/Dextromethorphan (Robitussin Dm) 10 ml PO Q6 PRN PRN Reason: Cough Last Admin: 08/23/18 10:05 Dose: 10 ml Insulin Detemir (Levemir) 15 units SC HS [facility] Insulin Human Lispro (Humalog) 10 units SC TIDAC [facility] Last Admin: 08/22/18 12:31 Dose: Not Given Insulin Human Regular (Humulin R) 0 units SC ACCU-CHECK [facility]; Protocol Last Admin: 08/31/18 12:02 Dose: 2 unit Lactulose (Enulose) 20 gm PO TID [facility] Last Admin: 08/25/18 08:24 Dose: 20 gm Lidocaine (Lidoderm) 1 ea TD DAILY [facility] Last Admin: 08/31/18 09:12 Dose: 1 ea Lidocaine HCl (Lidocaine 2% Viscous) 15 ml PO Q8H PRN PRN Reason: dysphagia Last Admin: 08/29/18 18:50 Dose: 15 ml Losartan Potassium (Cozaar) 50 mg PO DAILY [facility] Metolazone (Zaroxolyn) 2.5 mg PO DAILY [facility] Phenol/Menthol (Phenaseptic 1.4% Throat [place]) 1 spry MT Q2 PRN PRN Reason: Pain, Mild (1-3) Last Admin: 08/27/18 20:32 Dose: 1 spray Rifaximin (Xifaxan) 550 mg PO BID [facility]; Protocol Last Admin: 08/22/18 09:07 Dose: Not Given Saliva Substitute (First Magic Mouthwash) 5 ml PO TID [facility] Last Admin: 08/31/18 12:02 Dose: 5 ml Sitagliptin Phosphate (Januvia) 25 mg PO DAILY [facility] Last Admin: 08/22/18 09:01 Dose: Not Given Tiotropium [place] (Spiriva) 18 mcg INH DAILY [facility] Last Admin: 08/31/18 09:12 Dose: 18 mcg - Labs Labs: 08/31/18 05:30 08/31/18 05:30 PT 15.7 Seconds (9.8-13.1) H 08/24/18 06:45 INR 1.4 08/24/18 06:45 APTT 32.2 Seconds (25.6-37.1) 08/24/18 06:45 - Constitutional Appears: Chronically Ill - Head Exam Head Exam: ATRAUMATIC, NORMAL INSPECTION, NORMOCEPHALIC - Eye Exam Eye Exam: EOMI, Normal appearance, PERRL Pupil Exam: NORMAL ACCOMODATION, PERRL - ENT Exam ENT Exam: Mucous Membranes Moist, Normal Exam - Neck Exam Neck Exam: Full ROM, Normal Inspection. absent: Lymphadenopathy - Respiratory Exam Respiratory Exam: Decreased Breath Sounds, Prolonged Expiratory Phase, Rales, NORMAL BREATHING PATTERN - Cardiovascular Exam Cardiovascular Exam: REGULAR RHYTHM, +S1, +S2. absent: Murmur - GI/Abdominal Exam GI & Abdominal Exam: Soft, Normal Bowel Sounds. absent: Tenderness - Rectal Exam Rectal Exam: NORMAL INSPECTION - Extremities Exam Extremities Exam: Full ROM, Normal Capillary Refill, Normal Inspection. absent: Joint Swelling, Pedal Edema - Back Exam Back Exam: NORMAL INSPECTION - Neurological Exam Neurological Exam: Alert, Awake, CN II-XII Intact - Psychiatric Exam Psychiatric exam: Normal Affect, Normal Mood - Skin Skin Exam: Dry, Intact, Normal Color, Warm Assessment and Plan - Assessment and Plan (Free Text) Assessment: RESP FAILURE--IMPROVED CHF VALVULAR HEART DZ METABOLIC ENCEPH RENAL FAILURE Plan: CONTINUE CURRENT RX
--- NOTE | 2018-08-31 13:32 | CP.CCUPN ---
CCU Subjective - Physician Review Subjective (Free Text): No deterioration in mental status over the last 24H. Afebrile, no fever spikes, last 24H, SBP 110s, HR 70s A Fib, RR 17; 99% SPO2 on NC. Fluid balance positive 0.6 L last 24H. She remains oliguric, only 50 ml overnight with bladder scanning revealing a volume of approx. 113 ml. HD yesterday removed 1.7 L of ultrafiltrate. ROS: No other pertinent negs or positives on 10+ system review. PMSFH: All other Nursing and physician documentation reviewed to date; no new pertinent info noted relevant to current medical problems. EXAM- HEENT: no icterus, no gaze preference NECK: No JVD visible, supple, carotids equal upstroke bilat/no bruit. CHEST: decreased BS at the bases, especially R base; no wheezes audible bilaterally. HEART: irregular, distant, S1S2, no rubs or murmurs noted ABD: soft, nontender, no guarding, no organomegaly, BS hypoactive EXT: +1 leg edema, no calf tenderness or palpable cords, distal pulses faint but symmetrical. LUE PICC NEURO: withdraws to pain, + tone in all extremities. SKIN: no rashes, warm and dry LABS: WBC= 5.8 HGB= 9.1 PLTs= 38K Na= 136 K= 4.1 CL= 104 HCO3= 28 BUN/Cr= 49/3.2 BS= 231 IMPRESSION / MAJOR PROBLEMS NOW: 1. Acute resp insuff 2 Pleural effusion ( r/o parapneumonic / pneumonia process) and s/p R Thora. 2. Hypotension / Shock 2 Hypovolemia / antiHTN meds-Diuretics. 3. Metabolic Encephalopathy (Azotemia, Hyperammonianemia), r/o Toxic Drug effect (Lexapro) 4. Hyponatremia 2 Hypovolemia / Diuretics 5. s/p Abdominal Wall Hematoma 6. Chronic A fib with controlled VR, PPM. PLAN: 1. Another HD session scheduled for today as per Nephro. 2. Marginal effect on platelet counts after transfusion yesterday. No active bleeding noted. 3. Repeat CXR shows bilat pleural fluid, though rate of re-accumulation has slowed. 4. Daughter has mentioned that she would like her Mom to improve enough to the point of coming home. Unknown if this is realistic at this point in time. Needs re-discussion with family over further goals of care, possible palliative care mgmt. if prognosis is deemed poor by other consultants. Stable to leave ICU with no further need of ICU intervention unless she needs MV / hemodynamic support.
--- NOTE | 2018-08-31 14:04 | CP.PCM.PN ---
Subjective - Date & Time of Evaluation Date of Evaluation: 08/31/18 Time of Evaluation: 08:00 - Subjective Subjective: events noted rx in progress Objective - Vital Signs/Intake and Output Vital Signs (last 24 hours): Temp Pulse Resp BP Pulse Ox 97.2 F L 76 17 113/55 L 100 08/31/18 12:00 08/31/18 12:00 08/31/18 12:00 08/31/18 12:00 08/31/18 12:00 Intake and Output: 08/31/18 08/31/18 06:59 18:59 Intake Total 30 Balance 30 - Medications Medications: Current Medications Acetaminophen (Tylenol 325mg Tab) 650 mg PO Q6 PRN PRN Reason: Pain 1-10 Last Admin: 08/29/18 22:49 Dose: 650 mg Anastrozole (Arimidex 1 Mg Tab) 1 mg PO DAILY [facility] Last Admin: 08/22/18 09:00 Dose: Not Given Benzocaine/Menthol (Cepacol Sore Throat) 1 malu PO Q2 PRN PRN Reason: Sore Throat Calcium Acetate (Phoslo) 667 mg PO DAILY [facility] Last Admin: 08/22/18 10:00 Dose: Not Given Carvedilol (Coreg) 6.25 mg PO Q12 [facility] Last Admin: 08/31/18 09:10 Dose: Not Given Dextrose (Dextrose 50% Inj) 0 ml IV STAT PRN; Protocol PRN Reason: Hypoglycemia Protocol Dextrose (Glutose 15) 0 gm PO ONCE PRN; Protocol PRN Reason: Hypoglycemia Protocol Diltiazem HCl (Cardizem) 30 mg PO QID [facility] Last Admin: 08/31/18 09:09 Dose: Not Given Dimethicone (Proshield Plus Skin Protectant) 1 applic TOP Q8 [facility] Last Admin: 08/31/18 09:12 Dose: 1 applic Epoetin Theron (Procrit) 10,000 unit IV MWF [facility] Last Admin: 08/31/18 09:14 Dose: 10,000 unit Ergocalciferol (Drisdol 50,000 Intl Units Cap) 1 cap PO QWK [facility] Escitalopram Oxalate (Lexapro) 20 mg PO DAILY [facility] Famotidine (Pepcid) 20 mg PO BID [facility] Last Admin: 08/31/18 09:12 Dose: 20 mg Furosemide (Lasix) 40 mg IVP BID [facility] Glucagon (Glucagen Diagnostic Kit) 0 mg IM STAT PRN; Protocol PRN Reason: Hypoglycemia Protocol Guaifenesin/Dextromethorphan (Robitussin Dm) 10 ml PO Q6 PRN PRN Reason: Cough Last Admin: 08/23/18 10:05 Dose: 10 ml Insulin Detemir (Levemir) 15 units SC HS [facility] Insulin Human Lispro (Humalog) 10 units SC TIDAC [facility] Last Admin: 08/22/18 12:31 Dose: Not Given Insulin Human Regular (Humulin R) 0 units SC ACCU-CHECK [facility]; Protocol Last Admin: 08/31/18 12:02 Dose: 2 unit Lactulose (Enulose) 20 gm PO TID [facility] Last Admin: 08/25/18 08:24 Dose: 20 gm Lidocaine (Lidoderm) 1 ea TD DAILY [facility] Last Admin: 08/31/18 09:12 Dose: 1 ea Lidocaine HCl (Lidocaine 2% Viscous) 15 ml PO Q8H PRN PRN Reason: dysphagia Last Admin: 08/29/18 18:50 Dose: 15 ml Losartan Potassium (Cozaar) 50 mg PO DAILY [facility] Metolazone (Zaroxolyn) 2.5 mg PO DAILY [facility] Phenol/Menthol (Phenaseptic 1.4% Throat [place]) 1 spry MT Q2 PRN PRN Reason: Pain, Mild (1-3) Last Admin: 08/27/18 20:32 Dose: 1 spray Rifaximin (Xifaxan) 550 mg PO BID [facility]; Protocol Last Admin: 08/22/18 09:07 Dose: Not Given Saliva Substitute (First Magic Mouthwash) 5 ml PO TID [facility] Last Admin: 08/31/18 12:02 Dose: 5 ml Sitagliptin Phosphate (Januvia) 25 mg PO DAILY [facility] Last Admin: 08/22/18 09:01 Dose: Not Given Tiotropium [place] (Spiriva) 18 mcg INH DAILY [facility] Last Admin: 08/31/18 09:12 Dose: 18 mcg - Labs Labs: 08/31/18 05:30 08/31/18 05:30 PT 15.7 Seconds (9.8-13.1) H 08/24/18 06:45 INR 1.4 08/24/18 06:45 APTT 32.2 Seconds (25.6-37.1) 08/24/18 06:45 - Constitutional Appears: Non-toxic, Chronically Ill - Head Exam Head Exam: NORMOCEPHALIC - Eye Exam Eye Exam: absent: Scleral icterus - ENT Exam ENT Exam: Mucous Membranes Dry - Neck Exam Neck Exam: absent: Lymphadenopathy - Respiratory Exam Respiratory Exam: Decreased Breath Sounds - Cardiovascular Exam Cardiovascular Exam: REGULAR RHYTHM - GI/Abdominal Exam GI & Abdominal Exam: Distended, Soft - Rectal Exam Rectal Exam: Deferred - Exam Exam: NORMAL INSPECTION - Extremities Exam Extremities Exam: absent: Pedal Edema - Back Exam Back Exam: absent: CVA tenderness (L), CVA tenderness (R), NORMAL INSPECTION - Neurological Exam Neurological Exam: Alert, Awake, CN II-XII Intact - Psychiatric Exam Psychiatric exam: Depressed - Skin Skin Exam: Dry Assessment and Plan (1) CHF (congestive heart failure) Status: Acute (2) HCAP (healthcare-associated pneumonia) Status: Acute (3) Pleural effusion Status: Acute (4) Acute diastolic heart failure due to valvular disease Status: Acute (5) Acute dyspnea Status: Acute (6) Acute renal failure Status: Acute - Assessment and Plan (Free Text) Assessment: cont rx off merrem observe
[2018-09-01] MEDS: Proshield Plus GEL TOP SCH ×3 (02:39→16:47)
[2018-09-01 06:36] LABS: HEMOGLOBIN 9.6 g/dL (12.0-16.0); MEAN CELL VOLUME 103.1 fl (81.0-99.0); MEAN CORPUSCULAR HEMOGLOBIN 34.7 pg (27.0-31.0); MEAN CORPUSCULAR HGB CONC 33.7 g/dL (33.0-37.0); RBC 2.77 Mil/uL (3.80-5.20); RED CELL DISTRIBUTION WIDTH 17.7 % (11.5-14.5); WHITE BLOOD COUNT 5.5 K/uL (4.8-10.8)
[2018-09-01 06:54] LABS: ALB/GLOB RATIO 0.7 (1.0-2.1); ALBUMIN 2.2 g/dL (3.5-5.0)
[2018-09-01] MEDS: Insulin Regular 100 units/ml SC SCH ×4 (08:28→22:30)
[2018-09-01] MEDS: Mag&Al/Simet/Diphen/Lido 237 ML KIT PO SCH ×3 (08:28→16:46)
[2018-09-01] MEDS: Lidocaine 5% Patch TD SCH (08:29)
[2018-09-01] MEDS: Tiotropium 18 mcg Cap For Inhalation INH SCH (08:30)
--- NOTE | 2018-09-01 09:14 | CP.CCUPN ---
CCU Subjective - Physician Review Events Since Last Encounter (Free Text): 09/01/18 09:10 Looks comfortable, sitting on the chair and about to have her breakfast BP has been stable Platlets dropped tp 20 K, will give one unit, as per Heamatologist recommendation. Had HD yesterday, next HD on Monday. CCU Objective - Vital Signs / Intake & Output Vital Signs (Last 4 hours): Vital Signs Pulse Resp BP Pulse Ox 09/01/18 08:27 69 109/48 L 09/01/18 06:00 68 22 113/78 100 Intake and Output (Last 8hrs): Intake & Output 08/31/18 09/01/18 09/01/18 22:59 06:59 14:59 Intake Total 630 200 Output Total 500 Balance 130 200 Weight 135 lb 8 oz Intake: IV 400 Oral 230 200 Output: Urine 500 Urine, Voided 500 Other: # Bowel Movements 1 1 - Physical Exam Narrative Physical Exam (Free Text): 09/01/18 09:12 P/E Neck: No JVD Lungs: decreased breath sound, bases Heart: No gallop Abdomen: soft, slight distension Ext: no edema Head: Positive for: Atraumatic, Normocephalic Pupils: Positive for: PERRL Conjunctiva: Positive for: Normal Ears: Positive for: Normal Mouth: Positive for: Moist Mucous Membranes Nose (External): Positive for: Atraumatic Neck: Positive for: Normal Range of Motion Respiratory/Chest: Positive for: Rhonchi Cardiovascular: Positive for: Irregular Rhythm Abdomen: Positive for: Normal Bowel Sounds Upper Extremity: Positive for: Normal Inspection Lower Extremity: Positive for: Normal Inspection Neurological: Positive for: Other (lethergic) - Medications Active Medications: Active Medications Generic Name Dose Route Start Last Admin Trade Name Freq PRN Reason Stop Dose Admin Acetaminophen 650 mg 09/01/18 07:06 Tylenol 650mg/20.3ml Solution Ud PO Q4 PRN Pain, moderate (4-7) Anastrozole 1 mg 08/22/18 09:00 08/22/18 09:00 Arimidex 1 Mg Tab PO Not Given DAILY [facility] Benzocaine/Menthol 1 malu 08/22/18 00:16 Cepacol Sore Throat PO Q2 PRN Sore Throat Calcium Acetate 667 mg 08/22/18 09:00 08/22/18 10:00 Phoslo PO Not Given DAILY [facility] Carvedilol 6.25 mg 08/29/18 21:00 09/01/18 08:27 Coreg PO 6.25 mg Q12 [facility] Administration Dextrose 0 ml 08/22/18 00:16 Dextrose 50% Inj IV STAT PRN Hypoglycemia Protocol Protocol Dextrose 0 gm 08/22/18 00:16 Glutose 15 PO ONCE PRN Hypoglycemia Protocol Protocol Diltiazem HCl 30 mg 08/29/18 14:15 09/01/18 08:27 Cardizem PO 30 mg QID [facility] Administration Dimethicone 1 applic 08/22/18 01:00 09/01/18 08:30 Proshield Plus Skin Protectant TOP 1 applic Q8 [facility] Administration Epoetin Theron 10,000 unit 08/27/18 09:00 08/31/18 09:14 Procrit IV 10,000 unit MWF [facility] Administration Ergocalciferol 1 cap 08/22/18 00:16 Drisdol 50,000 Intl Units Cap PO QWK [facility] Escitalopram Oxalate 20 mg 08/22/18 09:00 Lexapro PO DAILY [facility] Famotidine 20 mg 08/26/18 17:00 09/01/18 08:29 Pepcid PO 20 mg BID [facility] Administration Furosemide 40 mg 08/22/18 09:00 Lasix IVP BID [facility] Glucagon 0 mg 08/22/18 00:16 Glucagen Diagnostic Kit IM STAT PRN Hypoglycemia Protocol Protocol Guaifenesin/Dextromethorphan 10 ml 08/22/18 00:16 08/23/18 10:05 Robitussin Dm PO 10 ml Q6 PRN Administration Cough Insulin Detemir 15 units 08/22/18 22:00 Levemir SC HS [facility] Insulin Human Lispro 10 units 08/22/18 07:30 08/22/18 12:31 Humalog SC Not Given TIDAC [facility] Insulin Human Regular 0 units 08/22/18 23:00 09/01/18 08:28 Humulin R SC 1 unit ACCU-CHECK [facility] Administration Protocol Lactulose 20 gm 08/22/18 09:00 08/25/18 08:24 Enulose PO 20 gm TID [facility] Administration Lidocaine 1 ea 08/22/18 09:00 09/01/18 08:29 Lidoderm TD 1 ea DAILY [facility] Administration Lidocaine HCl 15 ml 08/26/18 14:01 08/29/18 18:50 Lidocaine 2% Viscous PO 15 ml Q8H PRN Administration dysphagia Losartan Potassium 50 mg 08/22/18 09:00 Cozaar PO DAILY [facility] Metolazone 2.5 mg 08/22/18 09:00 Zaroxolyn PO DAILY [facility] Phenol/Menthol 1 spry 08/23/18 15:10 08/27/18 20:32 Phenaseptic 1.4% Throat [place] 1 spray Q2 PRN Administration Pain, Mild (1-3) Rifaximin 550 mg 08/22/18 09:00 08/22/18 09:07 Xifaxan PO Not Given BID [facility] Protocol Saliva Substitute 5 ml 08/28/18 13:00 09/01/18 08:28 First Magic Mouthwash PO 5 ml TID [facility] Administration Sitagliptin Phosphate 25 mg 08/22/18 09:00 09/01/18 08:29 Januvia PO 25 mg DAILY [facility] Administration Tiotropium [place] 18 mcg 08/22/18 09:00 09/01/18 08:30 Spiriva INH 18 mcg DAILY [facility] Administration - Patient Studies Lab Studies: Lab Studies 09/01/18 09/01/18 09/01/18 Range/Units 06:26 04:30 04:30 WBC 5.5 (4.8-10.8) K/uL RBC 2.77 L (3.80-5.20) Mil/uL Hgb 9.6 L (12.0-16.0) g/dL Hct 28.6 L (34.0-47.0) % MCV 103.1 H (81.0-99.0) fl MCH 34.7 H (27.0-31.0) pg MCHC 33.7 (33.0-37.0) g/dL RDW 17.7 H (11.5-14.5) % Plt Count 20 L* D (130-400) K/uL Sodium 135 (132-148) mmol/l Potassium 4.0 (3.6-5.0) MMOL/L Chloride 104 (98-107) mmol/L Carbon Dioxide 25 (22-30) mmol/L Anion Gap 10 (10-20) BUN 30 H (7-17) mg/dl Creatinine 1.7 H (0.7-1.2) mg/dl Est GFR ( Amer) 35 Est GFR (Non-Af Amer) 29 POC Glucose (mg/dL) 176 H (65-110) mg/dL Random Glucose 177 H (65-105) mg/dL Calcium 9.0 (8.4-10.2) mg/dL Total Bilirubin 1.4 H (0.2-1.3) mg/dl AST 41 H (14-36) U/L ALT 51 (9-52) U/L Alkaline Phosphatase 73 (38-126) U/L Total Protein 5.4 L (6.3-8.2) G/DL Albumin 2.2 L (3.5-5.0) g/dL Globulin 3.2 (2.2-3.9) gm/dL Albumin/Globulin Ratio 0.7 L (1.0-2.1) 08/31/18 08/31/18 08/31/18 Range/Units 20:55 17:08 11:17 WBC (4.8-10.8) K/uL RBC (3.80-5.20) Mil/uL Hgb (12.0-16.0) g/dL Hct (34.0-47.0) % MCV (81.0-99.0) fl MCH (27.0-31.0) pg MCHC (33.0-37.0) g/dL RDW (11.5-14.5) % Plt Count (130-400) K/uL Sodium (132-148) mmol/l Potassium (3.6-5.0) MMOL/L Chloride (98-107) mmol/L Carbon Dioxide (22-30) mmol/L Anion Gap (10-20) BUN (7-17) mg/dl Creatinine (0.7-1.2) mg/dl Est GFR ( Amer) Est GFR (Non-Af Amer) POC Glucose (mg/dL) 198 H 193 H 209 H (65-110) mg/dL Random Glucose (65-105) mg/dL Calcium (8.4-10.2) mg/dL Total Bilirubin (0.2-1.3) mg/dl AST (14-36) U/L ALT (9-52) U/L Alkaline Phosphatase (38-126) U/L Total Protein (6.3-8.2) G/DL Albumin (3.5-5.0) g/dL Globulin (2.2-3.9) gm/dL Albumin/Globulin Ratio (1.0-2.1) Laboratory Results - last 24 hr 08/31/18 08/31/18 08/31/18 11:17 17:08 20:55 WBC RBC Hgb Hct MCV MCH MCHC RDW Plt Count Sodium Potassium Chloride Carbon Dioxide Anion Gap BUN Creatinine Est GFR ( Amer) Est GFR (Non-Af Amer) POC Glucose (mg/dL) 209 H 193 H 198 H Random Glucose Calcium Total Bilirubin AST ALT Alkaline Phosphatase Total Protein Albumin Globulin Albumin/Globulin Ratio 09/01/18 09/01/18 09/01/18 04:30 04:30 06:26 WBC 5.5 RBC 2.77 L Hgb 9.6 L Hct 28.6 L MCV 103.1 H MCH 34.7 H MCHC 33.7 RDW 17.7 H Plt Count 20 L* D Sodium 135 Potassium 4.0 Chloride 104 Carbon Dioxide 25 Anion Gap 10 BUN 30 H Creatinine 1.7 H Est GFR ( Amer) 35 Est GFR (Non-Af Amer) 29 POC Glucose (mg/dL) 176 H Random Glucose 177 H Calcium 9.0 Total Bilirubin 1.4 H AST 41 H ALT 51 Alkaline Phosphatase 73 Total Protein 5.4 L Albumin 2.2 L Globulin 3.2 Albumin/Globulin Ratio 0.7 L Radiology Impressions: Radiology Impressions Chest X-Ray 08/31/18 07:00 IMPRESSION: Mild pulmonary venous congestive changes with bilateral effusions and bilateral lower lobe alveolar-type infiltrates. Fingerstick Blood Sugar Results: 176 Critical Care Progress Note - Nutrition Nutrition: Nutrition Category Date Time Status Dysphagia/Modified Consistency Diet [DIET] Diets 08/30/18 Dinner Active Assessment/Plan - Assessment and Plan (Free Text) Assessment: IMPRESSION / MAJOR PROBLEMS NOW: 1. Acute resp insuff 2 Pleural effusion ( r/o parapneumonic / pneumonia process) and s/p R Thora : clinically improved . 2. Hypotension / Shock 2 Hypovolemia / antiHTN meds-Diuretics.: improved 3. [facility]: on HD 4. s/p Abdominal Wall Hematoma : improving 5 Thrombocytopenia : 6. Chronic A fib with controlled VR, PPM. PLAN: 1. on A fib, rate controlled on PO cardizem, no AC due to severe thrombocytopenia 2. Had HD yesterday next on Monday. 3. Check repeat CXR 4. on nasal cannula. 5. Needs re-discussion with family over further goals of care, possible palliative care mgmt. Stable to leave ICU with no further need of ICU intervention Will transfer out of ICU.
--- NOTE | 2018-09-01 10:02 | CP.PCM.PN ---
Subjective - Date & Time of Evaluation Date of Evaluation: 09/01/18 Time of Evaluation: 10:03 - Subjective Subjective: OOB TO CHAIR RESPONDS TO VERBAL COMMANDS VSS DAUGHTER AT BEDSIDE Objective - Vital Signs/Intake and Output Vital Signs (last 24 hours): Temp Pulse Resp BP Pulse Ox 97.9 F 69 22 109/48 L 100 09/01/18 04:00 09/01/18 08:27 09/01/18 06:00 09/01/18 08:27 09/01/18 06:00 Intake and Output: 09/01/18 09/01/18 06:59 18:59 Intake Total 230 Balance 230 - Medications Medications: Current Medications Acetaminophen (Tylenol 650mg/20.3ml Solution Ud) 650 mg PO Q4 PRN PRN Reason: Pain, moderate (4-7) Anastrozole (Arimidex 1 Mg Tab) 1 mg PO DAILY [facility] Last Admin: 08/22/18 09:00 Dose: Not Given Benzocaine/Menthol (Cepacol Sore Throat) 1 malu PO Q2 PRN PRN Reason: Sore Throat Calcium Acetate (Phoslo) 667 mg PO DAILY [facility] Last Admin: 08/22/18 10:00 Dose: Not Given Carvedilol (Coreg) 6.25 mg PO Q12 [facility] Last Admin: 09/01/18 08:27 Dose: 6.25 mg Dextrose (Dextrose 50% Inj) 0 ml IV STAT PRN; Protocol PRN Reason: Hypoglycemia Protocol Dextrose (Glutose 15) 0 gm PO ONCE PRN; Protocol PRN Reason: Hypoglycemia Protocol Diltiazem HCl (Cardizem) 30 mg PO QID [facility] Last Admin: 09/01/18 08:27 Dose: 30 mg Dimethicone (Proshield Plus Skin Protectant) 1 applic TOP Q8 [facility] Last Admin: 09/01/18 08:30 Dose: 1 applic Epoetin Theron (Procrit) 10,000 unit IV MWF [facility] Last Admin: 08/31/18 09:14 Dose: 10,000 unit Ergocalciferol (Drisdol 50,000 Intl Units Cap) 1 cap PO QWK [facility] Escitalopram Oxalate (Lexapro) 20 mg PO DAILY [facility] Famotidine (Pepcid) 20 mg PO BID [facility] Last Admin: 09/01/18 08:29 Dose: 20 mg Furosemide (Lasix) 40 mg IVP BID [facility] Glucagon (Glucagen Diagnostic Kit) 0 mg IM STAT PRN; Protocol PRN Reason: Hypoglycemia Protocol Guaifenesin/Dextromethorphan (Robitussin Dm) 10 ml PO Q6 PRN PRN Reason: Cough Last Admin: 08/23/18 10:05 Dose: 10 ml Insulin Detemir (Levemir) 15 units SC HS [facility] Insulin Human Lispro (Humalog) 10 units SC TIDAC [facility] Last Admin: 08/22/18 12:31 Dose: Not Given Insulin Human Regular (Humulin R) 0 units SC ACCU-CHECK [facility]; Protocol Last Admin: 09/01/18 08:28 Dose: 1 unit Lactulose (Enulose) 20 gm PO TID [facility] Last Admin: 08/25/18 08:24 Dose: 20 gm Lidocaine (Lidoderm) 1 ea TD DAILY [facility] Last Admin: 09/01/18 08:29 Dose: 1 ea Lidocaine HCl (Lidocaine 2% Viscous) 15 ml PO Q8H PRN PRN Reason: dysphagia Last Admin: 08/29/18 18:50 Dose: 15 ml Losartan Potassium (Cozaar) 50 mg PO DAILY [facility] Metolazone (Zaroxolyn) 2.5 mg PO DAILY [facility] Phenol/Menthol (Phenaseptic 1.4% Throat [place]) 1 spry MT Q2 PRN PRN Reason: Pain, Mild (1-3) Last Admin: 08/27/18 20:32 Dose: 1 spray Rifaximin (Xifaxan) 550 mg PO BID [facility]; Protocol Last Admin: 08/22/18 09:07 Dose: Not Given Saliva Substitute (First Magic Mouthwash) 5 ml PO TID [facility] Last Admin: 09/01/18 08:28 Dose: 5 ml Sitagliptin Phosphate (Januvia) 25 mg PO DAILY [facility] Last Admin: 09/01/18 08:29 Dose: 25 mg Tiotropium [place] (Spiriva) 18 mcg INH DAILY [facility] Last Admin: 09/01/18 08:30 Dose: 18 mcg - Labs Labs: 09/01/18 04:30 09/01/18 04:30 PT 15.7 Seconds (9.8-13.1) H 08/24/18 06:45 INR 1.4 08/24/18 06:45 APTT 32.2 Seconds (25.6-37.1) 08/24/18 06:45 - Constitutional Appears: No Acute Distress, Chronically Ill - Head Exam Head Exam: ATRAUMATIC, NORMAL INSPECTION, NORMOCEPHALIC - Eye Exam Eye Exam: EOMI, Normal appearance, PERRL Pupil Exam: NORMAL ACCOMODATION, PERRL - ENT Exam ENT Exam: Mucous Membranes Moist, Normal Exam - Neck Exam Neck Exam: Full ROM, Normal Inspection. absent: Lymphadenopathy - Respiratory Exam Respiratory Exam: Prolonged Expiratory Phase, Rales, NORMAL BREATHING PATTERN - Cardiovascular Exam Cardiovascular Exam: REGULAR RHYTHM, +S1, +S2. absent: Murmur - GI/Abdominal Exam GI & Abdominal Exam: Soft, Normal Bowel Sounds. absent: Tenderness - Rectal Exam Rectal Exam: NORMAL INSPECTION - Extremities Exam Extremities Exam: Full ROM, Normal Capillary Refill, Normal Inspection. absent: Joint Swelling, Pedal Edema - Back Exam Back Exam: NORMAL INSPECTION - Neurological Exam Neurological Exam: Alert, Awake, CN II-XII Intact - Psychiatric Exam Psychiatric exam: Flat Affect - Skin Skin Exam: Dry, Intact, Normal Color, Warm Assessment and Plan - Assessment and Plan (Free Text) Assessment: RESPIRATORY FAILURE IMPROVED PLEURAL EFFUSION--LESS ACUTE RENAL FAILURE--IMPROVED WITH DIALYSIS CHF VALVULAR HEART DZ Plan: CONTINUE CURRENT RX WILL CONTINUE TO FOLLOW WITH YOU
--- NOTE | 2018-09-01 12:09 | CP.PCM.PN ---
Subjective - Date & Time of Evaluation Date of Evaluation: 09/01/18 Time of Evaluation: 11:00 - Subjective Subjective: patient seen and examined at bedside. Interim events noted spoke with family, answered all questions improving with HD available diagnostic data reviewed Objective Vital Signs Stable - Constitutional Appears: Chronically Ill - Respiratory Exam Respiratory Exam: NORMAL BREATHING PATTERN with supplemental o2 - Cardiovascular Exam Cardiovascular Exam: +S1, +S2 - GI/Abdominal Exam GI & Abdominal Exam: Soft, suprapubic fullness - Skin Skin Exam: Normal Color, Warm Assessment and Plan chapo valvular heart disease chf pleural effusion s/p thoracentesis thrombocytopenia plan available diagnostic data reviewed ID, Nephro, Cardio, Heme, Pulmonary following monitor labs monitor vitals drapery installer recommendations appreciated HD transfusion support prn plt < 20k c/w PT bladder studies ordered rest of plan as ordered
--- NOTE | 2018-09-01 14:40 | CP.PCM.PN ---
Subjective - Date & Time of Evaluation Date of Evaluation: 08/27/18 Time of Evaluation: 11:00 - Subjective Subjective: patient seen and examined at bedside. Interim events noted spoke with family, answered all questions improving with HD available diagnostic data reviewed Objective Vital Signs Stable - Constitutional Appears: Chronically Ill - Respiratory Exam Respiratory Exam: NORMAL BREATHING PATTERN with supplemental o2 - Cardiovascular Exam Cardiovascular Exam: +S1, +S2 - GI/Abdominal Exam GI & Abdominal Exam: Soft - Skin Skin Exam: Normal Color, Warm Assessment and Plan chapo valvular heart disease chf pleural effusion s/p thoracentesis thrombocytopenia plan available diagnostic data reviewed ID, Nephro, Cardio, Heme, Pulmonary following monitor labs monitor vitals powerhouse operator recommendations appreciated HD transfusion support prn plt < 20k c/w PT rest of plan as ordered
--- NOTE | 2018-09-01 14:41 | CP.PCM.PN ---
Subjective - Date & Time of Evaluation Date of Evaluation: 08/28/18 Time of Evaluation: 11:00 - Subjective Subjective: patient seen and examined at bedside. Interim events noted spoke with family, answered all questions improving with HD available diagnostic data reviewed Objective Vital Signs Stable - Constitutional Appears: Chronically Ill - Respiratory Exam Respiratory Exam: NORMAL BREATHING PATTERN with supplemental o2 - Cardiovascular Exam Cardiovascular Exam: +S1, +S2 - GI/Abdominal Exam GI & Abdominal Exam: Soft - Skin Skin Exam: Normal Color, Warm Assessment and Plan chapo valvular heart disease chf pleural effusion s/p thoracentesis thrombocytopenia plan available diagnostic data reviewed ID, Nephro, Cardio, Heme, Pulmonary following monitor labs monitor vitals loan interviewer mortgage recommendations appreciated HD transfusion support prn plt < 20k c/w PT rest of plan as ordered
--- NOTE | 2018-09-01 14:42 | CP.PCM.PN ---
Subjective - Date & Time of Evaluation Date of Evaluation: 08/29/18 Time of Evaluation: 11:00 - Subjective Subjective: patient seen and examined at bedside. Interim events noted spoke with family, answered all questions improving with HD available diagnostic data reviewed Objective Vital Signs Stable - Constitutional Appears: Chronically Ill - Respiratory Exam Respiratory Exam: NORMAL BREATHING PATTERN with supplemental o2 - Cardiovascular Exam Cardiovascular Exam: +S1, +S2 - GI/Abdominal Exam GI & Abdominal Exam: Soft - Skin Skin Exam: Normal Color, Warm Assessment and Plan chapo valvular heart disease chf pleural effusion s/p thoracentesis thrombocytopenia plan available diagnostic data reviewed ID, Nephro, Cardio, Heme, Pulmonary following monitor labs monitor vitals telephone services sales representative recommendations appreciated HD transfusion support prn plt < 20k c/w PT rest of plan as ordered
--- NOTE | 2018-09-01 14:43 | CP.PCM.PN ---
Subjective - Date & Time of Evaluation Date of Evaluation: 08/30/18 Time of Evaluation: 11:00 - Subjective Subjective: patient seen and examined at bedside. Interim events noted spoke with family, answered all questions improving with HD available diagnostic data reviewed Objective Vital Signs Stable - Constitutional Appears: Chronically Ill - Respiratory Exam Respiratory Exam: NORMAL BREATHING PATTERN with supplemental o2 - Cardiovascular Exam Cardiovascular Exam: +S1, +S2 - GI/Abdominal Exam GI & Abdominal Exam: Soft - Skin Skin Exam: Normal Color, Warm Assessment and Plan chapo valvular heart disease chf pleural effusion s/p thoracentesis thrombocytopenia plan available diagnostic data reviewed ID, Nephro, Cardio, Heme, Pulmonary following monitor labs monitor vitals cardiac cath lab radiology technologist recommendations appreciated HD transfusion support prn plt < 20k c/w PT monitor pleural effusion rest of plan as ordered
--- NOTE | 2018-09-01 14:44 | CP.PCM.PN ---
Subjective - Date & Time of Evaluation Date of Evaluation: 08/31/18 Time of Evaluation: 11:00 - Subjective Subjective: patient seen and examined at bedside. Interim events noted spoke with family, answered all questions improving with HD available diagnostic data reviewed Objective Vital Signs Stable - Constitutional Appears: Chronically Ill - Respiratory Exam Respiratory Exam: NORMAL BREATHING PATTERN with supplemental o2 - Cardiovascular Exam Cardiovascular Exam: +S1, +S2 - GI/Abdominal Exam GI & Abdominal Exam: Soft - Skin Skin Exam: Normal Color, Warm Assessment and Plan chapo valvular heart disease chf pleural effusion s/p thoracentesis thrombocytopenia plan available diagnostic data reviewed ID, Nephro, Cardio, Heme, Pulmonary following monitor labs monitor vitals 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
--- NOTE | 2018-09-01 15:27 | CP.PCM.PN ---
Subjective - Date & Time of Evaluation Date of Evaluation: 09/01/18 Time of Evaluation: 15:26 - Subjective Subjective: pt is seen and examined, follow up consult is dictated #[id number] for hd on monday will add lasix 40 mg iv bid x doses Objective - Vital Signs/Intake and Output Vital Signs (last 24 hours): Temp Pulse Resp BP Pulse Ox 97.4 F L 67 25 H 141/53 L 95 09/01/18 12:00 09/01/18 13:30 09/01/18 12:00 09/01/18 13:30 09/01/18 13:05 Intake and Output: 09/01/18 09/01/18 06:59 18:59 Intake Total 230 500 Balance 230 500 - Medications Medications: Current Medications Acetaminophen (Tylenol 650mg/20.3ml Solution Ud) 650 mg PO Q4 PRN PRN Reason: Pain, moderate (4-7) Anastrozole (Arimidex 1 Mg Tab) 1 mg PO DAILY [facility] Last Admin: 08/22/18 09:00 Dose: Not Given Benzocaine/Menthol (Cepacol Sore Throat) 1 malu PO Q2 PRN PRN Reason: Sore Throat Calcium Acetate (Phoslo) 667 mg PO DAILY [facility] Last Admin: 08/22/18 10:00 Dose: Not Given Carvedilol (Coreg) 6.25 mg PO Q12 [facility] Last Admin: 09/01/18 08:27 Dose: 6.25 mg Dextrose (Dextrose 50% Inj) 0 ml IV STAT PRN; Protocol PRN Reason: Hypoglycemia Protocol Dextrose (Glutose 15) 0 gm PO ONCE PRN; Protocol PRN Reason: Hypoglycemia Protocol Diltiazem HCl (Cardizem) 30 mg PO QID [facility] Last Admin: 09/01/18 13:30 Dose: 30 mg Dimethicone (Proshield Plus Skin Protectant) 1 applic TOP Q8 [facility] Last Admin: 09/01/18 08:30 Dose: 1 applic Epoetin [place]on (Procrit) 10,000 unit IV MWF [facility] Last Admin: 08/31/18 09:14 Dose: 10,000 unit Ergocalciferol (Drisdol 50,000 Intl Units Cap) 1 cap PO QWK [facility] Escitalopram Oxalate (Lexapro) 20 mg PO DAILY [facility] Famotidine (Pepcid) 20 mg PO BID [facility] Last Admin: 09/01/18 08:29 Dose: 20 mg Glucagon (Glucagen Diagnostic Kit) 0 mg IM STAT PRN; Protocol PRN Reason: Hypoglycemia Protocol Guaifenesin/Dextromethorphan (Robitussin Dm) 10 ml PO Q6 PRN PRN Reason: Cough Last Admin: 08/23/18 10:05 Dose: 10 ml Insulin Detemir (Levemir) 15 units SC HS [facility] Insulin Human Lispro (Humalog) 10 units SC TIDAC [facility] Last Admin: 08/22/18 12:31 Dose: Not Given Insulin Human Regular (Humulin R) 0 units SC ACCU-CHECK [facility]; Protocol Last Admin: 09/01/18 12:30 Dose: 2 unit Lactulose (Enulose) 20 gm PO TID [facility] Last Admin: 08/25/18 08:24 Dose: 20 gm Lidocaine (Lidoderm) 1 ea TD DAILY [facility] Last Admin: 09/01/18 08:29 Dose: 1 ea Lidocaine HCl (Lidocaine 2% Viscous) 15 ml PO Q8H PRN PRN Reason: dysphagia Last Admin: 08/29/18 18:50 Dose: 15 ml Losartan Potassium (Cozaar) 50 mg PO DAILY [facility] Metolazone (Zaroxolyn) 2.5 mg PO DAILY [facility] Phenol/Menthol (Phenaseptic 1.4% Throat [place]) 1 spry MT Q2 PRN PRN Reason: Pain, Mild (1-3) Last Admin: 08/27/18 20:32 Dose: 1 spray Rifaximin (Xifaxan) 550 mg PO BID [facility]; Protocol Last Admin: 08/22/18 09:07 Dose: Not Given Saliva Substitute (First Magic Mouthwash) 5 ml PO TID [facility] Last Admin: 09/01/18 13:30 Dose: 5 ml Sitagliptin Phosphate (Januvia) 25 mg PO DAILY [facility] Last Admin: 09/01/18 08:29 Dose: 25 mg Tiotropium [place] (Spiriva) 18 mcg INH DAILY [facility] Last Admin: 09/01/18 08:30 Dose: 18 mcg - Labs Labs: 09/01/18 04:30 09/01/18 04:30 PT 15.7 Seconds (9.8-13.1) H 08/24/18 06:45 INR 1.4 08/24/18 06:45 APTT 32.2 Seconds (25.6-37.1) 08/24/18 06:45
[2018-09-02] MEDS: Proshield Plus GEL TOP SCH ×4 (01:00→17:03)
--- NOTE | 2018-09-02 02:40 | PN ---
DATE: 09/01/2018 FOLLOWUP RENAL CONSULTATION LOCATION: The patient is located in ICU, 435. REQUESTED BY: Rojelio Wayne MD REASON FOR FOLLOWUP: Acute renal failure. SUBJECTIVE: Mrs. Sheth is an 82-year-old elderly female with a past medical history significant for longstanding hypertension, diabetes, hyperlipidemia, pulmonary hypertension, and also [id number] tricuspid regurgitation, cirrhosis of the liver, was admitted initially with cough, shortness of breath, and found to have pneumonia, status post treatment with IV antibiotics, also found to have bilateral pleural effusion and multiple thoracentesis. Hospital course complicated by acute renal failure with altered mental status and fluid overload, requiring initiation of the renal replacement therapy. The patient is on hemodialysis for the last 10 days. The patient is feeling slightly better, not in distress, responding appropriately. No chest pain. No palpitation. No fever, no cough. No abdominal pain. No nausea, vomiting, diarrhea. PHYSICAL EXAMINATION: VITAL SIGNS: As follows: Blood pressure 152/58, pulse 76, respirations 23, saturation 96%, and temperature 97. Height 4 feet 11 inches and weight is 135 pounds. GENERAL: Mrs. Sheth is an 82-year-old elderly female, moderately built, moderately nourished, not in distress. HEENT: Pupils are normal, reactive to light and accommodation. Conjunctivae pink. Sclerae anicteric. Tongue is moist. Trachea is midline. LUNGS: Symmetric on both sides. Bilateral breath sounds present. Bilateral crackles present in the right, more than the left with decreased breath sounds also. CARDIOVASCULAR SYSTEM: S1, S2 audible. No murmur or gallop. Occasionally irregular. ABDOMEN: Normal in appearance, soft, tympanitic. No guarding. No rigidity. No hepatosplenomegaly. CENTRAL NERVOUS SYSTEM: The patient is alert, awake, oriented x2-3. Sensory and motor system within normal limits. EXTREMITIES: No cyanosis, no clubbing, no edema in both lower extremities. The patient has swelling of both upper extremities. CURRENT MEDICATIONS: Include as follows: Cardizem 30 mg p.o. four times a day, Cepacol throat lozenges, Coreg 6.25 mg p.o. every 12 hours, First magic mouthwash 5 mL p.o. t.i.d., Januvia 25 mg p.o. daily, Lasix 40 mg IV b.i.d., lidocaine patch, Pepcid 20 mg p.o. b.i.d., Epogen 10,000 units three times a week on Monday, Monday and Monday, Robitussin DM 10 mL p.o. every 6 hours p.r.n, and Spiriva 18 mcg inhaler daily, Tylenol 650 mg p.o. every 4 hours p.r.n., Zofran 4 mg IV every 6 hours p.r.n. INTAKE AND OUTPUT: Her intake is 1130 and output was 2200, out of that 500 is urine and ultrafiltration is about 1700 mL. Last 1-hour intake is 985 and output is 100 mL. LABORATORY DATA: Include as follows: As of 09/01/2018, WBC 5.5, hemoglobin 9.6, hematocrit is 28.6, MCV 103, and platelets 20. Sodium 135, potassium is 4, chloride 104, CO2 of 25, BUN 30, creatinine 1.7, glucose 177, calcium is 9, total bilirubin 1.4. AST 41, ALT 51, alkaline phosphatase 73. Total protein is 5.4, albumin is 2.2 with corrected calcium about 10.3. ASSESSMENT AND PLAN: In summary, Mrs. Sheth is an 82-year-old elderly female with history of hypertension, diabetes, atrial fibrillation, hyperlipidemia, pulmonary hypertension, tricuspid regurgitation, cirrhosis of the liver with bilateral effusion with cough, and acute renal failure, on hemodialysis three times a week on Monday, Monday, and Monday. 1. Oliguric acute renal failure. Continue hemodialysis three times a week on Monday, Monday, and Monday until renal function improves. 2. Bilateral effusion. 3. Cirrhosis of the liver. 4. Pulmonary hypertension. 5. Anemia. 6. Thrombocytopenia, most likely secondary to cirrhosis of the liver. We will add Lasix to 40 mg orally or intravenously b.i.d. and continue monitor urine output. Discussed with the patient's daughter at bedside. The patient is scheduled for platelet transfusion this evening. We will follow with you. Thank you for allowing me to participate in your patient's care. Lalita Stovall MD MTDD
[2018-09-02 05:19] LABS: HEMOGLOBIN 9.5 g/dL (12.0-16.0); MEAN CELL VOLUME 103.2 fl (81.0-99.0); MEAN CORPUSCULAR HEMOGLOBIN 34.8 pg (27.0-31.0); MEAN CORPUSCULAR HGB CONC 33.7 g/dL (33.0-37.0); RBC 2.74 Mil/uL (3.80-5.20); RED CELL DISTRIBUTION WIDTH 19.2 % (11.5-14.5); WHITE BLOOD COUNT 6.6 K/uL (4.8-10.8)
[2018-09-02 05:20] LABS: INR 1.4; PROTHROMBIN TIME 15.6 Seconds (9.8-13.1)
[2018-09-02 05:40] LABS: ALB/GLOB RATIO 0.8 (1.0-2.1); ALBUMIN 2.4 g/dL (3.5-5.0); CALCIUM 9.7 mg/dL (8.4-10.2)
[2018-09-02] MEDS: Mag&Al/Simet/Diphen/Lido 237 ML KIT PO SCH ×3 (08:45→17:08)
[2018-09-02] MEDS: Insulin Regular 100 units/ml SC SCH ×4 (08:46→22:05)
[2018-09-02] MEDS: Tiotropium 18 mcg Cap For Inhalation INH SCH (08:48)
[2018-09-02] MEDS: Lidocaine 5% Patch TD SCH (10:24)
--- NOTE | 2018-09-02 11:57 | CP.CCUPN ---
CCU Subjective - Physician Review Events Since Last Encounter (Free Text): 09/02/18 11:55 lying on bed, no sob, no pain, Abdominal was hematoma : improving Platlets count better, 54 K today, was given 1 unit yesterdaym was 20 K CCU Objective - Vital Signs / Intake & Output Vital Signs (Last 4 hours): Vital Signs Temp Pulse Resp BP Pulse Ox 09/02/18 10:00 68 16 95/48 L 98 09/02/18 08:58 107/69 09/02/18 08:50 69 107/69 09/02/18 08:00 96.1 F L 67 22 107/69 99 Intake and Output (Last 8hrs): Intake & Output 09/01/18 09/02/18 09/02/18 22:59 06:59 14:59 Intake Total 435 0 140 Output Total 0 Balance 435 0 140 Weight 136 lb Intake: IV 25 0 Intake, Piggyback 20 Oral 100 120 Blood Product 310 Output: Emesis 0 Other: # Voids Urethral (Crane) 1 Urine, Voided 1 - Physical Exam Narrative Physical Exam (Free Text): 09/02/18 11:56 P/E Neck: No JVd Lungs : Rt basal crackles Abdomen: soft, hematoma, improving Ext: + 1 edema Heart: No gallop. Head: Positive for: Atraumatic, Normocephalic Pupils: Positive for: PERRL Conjunctiva: Positive for: Normal Ears: Positive for: Normal Mouth: Positive for: Moist Mucous Membranes Nose (External): Positive for: Atraumatic Neck: Positive for: Normal Range of Motion Respiratory/Chest: Positive for: Rhonchi Cardiovascular: Positive for: Irregular Rhythm Abdomen: Positive for: Normal Bowel Sounds Upper Extremity: Positive for: Normal Inspection Lower Extremity: Positive for: Normal Inspection Neurological: Positive for: Other (lethergic) - Medications Active Medications: Active Medications Generic Name Dose Route Start Last Admin Trade Name Freq PRN Reason Stop Dose Admin Acetaminophen 650 mg 09/01/18 07:06 Tylenol 650mg/20.3ml Solution Ud PO Q4 PRN Pain, moderate (4-7) Anastrozole 1 mg 08/22/18 09:00 08/22/18 09:00 Arimidex 1 Mg Tab PO Not Given DAILY KATEY Benzocaine/Menthol 1 malu 08/22/18 00:16 Cepacol Sore Throat PO Q2 PRN Sore Throat Calcium Acetate 667 mg 08/22/18 09:00 08/22/18 10:00 Phoslo PO Not Given DAILY KATE[facility] Carvedilol 6.25 mg 08/29/18 21:00 09/02/18 08:50 Coreg PO 6.25 mg Q12 [facility]ATE[facility] Administration Dextrose 0 ml 08/22/18 00:16 Dextrose 50% Inj IV STAT PRN Hypoglycemia Protocol Protocol Dextrose 0 gm 08/22/18 00:16 Glutose 15 PO ONCE PRN Hypoglycemia Protocol Protocol Diltiazem HCl 30 mg 08/29/18 14:15 09/02/18 08:50 Cardizem PO 30 mg QID [facility] Administration Dimethicone 1 applic 08/22/18 01:00 09/02/18 10:31 Proshield Plus Skin Protectant TOP 1 applic Q8 K[facility] Administration Epoetin Theron 10,000 unit 08/27/18 09:00 08/31/18 09:14 Procrit IV 10,000 unit MWF [facility] Administration Ergocalciferol 1 cap 08/22/18 00:16 Drisdol 50,000 Intl Units Cap PO QWK K[facility] Escitalopram Oxalate 20 mg 08/22/18 09:00 Lexapro PO DAILY [facility] Famotidine 20 mg 08/26/18 17:00 09/02/18 08:56 Pepcid PO 20 mg BID [facility] Administration Furosemide 40 mg 09/01/18 18:00 09/02/18 08:58 Lasix IV 09/02/18 18:00 40 mg BID [facility] Administration Glucagon 0 mg 08/22/18 00:16 Glucagen Diagnostic Kit IM STAT PRN Hypoglycemia Protocol Protocol Guaifenesin/Dextromethorphan 10 ml 08/22/18 00:16 08/23/18 10:05 Robitussin Dm PO 10 ml Q6 PRN Administration Cough Insulin Detemir 5 units 09/02/18 22:00 Levemir SC HS K[facility] Insulin Human Lispro 10 units 08/22/18 07:30 08/22/18 12:31 Humalog SC Not Given TIDAC [facility] Insulin Human Regular 0 units 08/22/18 23:00 09/02/18 08:46 Humulin R SC 3 unit ACCU-CHECK [facility] Administration Protocol Lactulose 20 gm 08/22/18 09:00 08/25/18 08:24 Enulose PO 20 gm TID [facility] Administration Lidocaine 1 ea 08/22/18 09:00 09/02/18 10:24 Lidoderm TD 1 ea DAILY [facility] Administration Lidocaine HCl 15 ml 08/26/18 14:01 08/29/18 18:50 Lidocaine 2% Viscous PO 15 ml Q8H PRN Administration dysphagia Losartan Potassium 50 mg 08/22/18 09:00 Cozaar PO DAILY [facility] Metolazone 2.5 mg 08/22/18 09:00 Zaroxolyn PO DAILY [facility] Ondansetron HCl 4 mg 09/01/18 16:25 09/01/18 16:45 Zofran Inj IVP 4 mg Q6 PRN Administration Nausea/Vomiting Phenol/Menthol 1 spry 08/23/18 15:10 08/27/18 20:32 Phenaseptic 1.4% Throat [place] 1 spray Q2 PRN Administration Pain, Mild (1-3) Rifaximin 550 mg 08/22/18 09:00 08/22/18 09:07 Xifaxan PO Not Given BID [facility] Protocol Saliva Substitute 5 ml 08/28/18 13:00 09/02/18 08:45 First Magic Mouthwash PO 5 ml TID [facility] Administration Sitagliptin Phosphate 25 mg 08/22/18 09:00 09/02/18 08:50 Januvia PO 25 mg DAILY [facility] Administration Tiotropium [place] 18 mcg 08/22/18 09:00 09/02/18 08:48 Spiriva INH 18 mcg DAILY [facility] Administration - Patient Studies Lab Studies: Lab Studies 09/02/18 09/02/18 09/02/18 Range/Units 11:07 07:47 04:41 WBC (4.8-10.8) K/uL RBC (3.80-5.20) Mil/uL Hgb (12.0-16.0) g/dL Hct (34.0-47.0) % MCV (81.0-99.0) fl MCH (27.0-31.0) pg MCHC (33.0-37.0) g/dL RDW (11.5-14.5) % Plt Count (130-400) K/uL PT (9.8-13.1) Seconds INR Sodium (132-148) mmol/l Potassium (3.6-5.0) MMOL/L Chloride (98-107) mmol/L Carbon Dioxide (22-30) mmol/L Anion Gap (10-20) BUN (7-17) mg/dl Creatinine (0.7-1.2) mg/dl Est GFR ( Amer) Est GFR (Non-Af Amer) POC Glucose (mg/dL) 299 H 267 H (65-110) mg/dL Random Glucose (65-105) mg/dL Calcium (8.4-10.2) mg/dL Phosphorus (2.5-4.5) mg/dl Magnesium (1.6-2.3) MG/DL Total Bilirubin (0.2-1.3) mg/dl AST (14-36) U/L ALT (9-52) U/L Alkaline Phosphatase (38-126) U/L Ammonia 21 (11-51) umo/L NT-Pro-B Natriuret Pep (0-900) pg/ml Total Protein (6.3-8.2) G/DL Albumin (3.5-5.0) g/dL Globulin (2.2-3.9) gm/dL Albumin/Globulin Ratio (1.0-2.1) 09/02/18 09/02/18 09/02/18 Range/Units 04:41 04:41 04:41 WBC 6.6 (4.8-10.8) K/uL RBC 2.74 L (3.80-5.20) Mil/uL Hgb 9.5 L (12.0-16.0) g/dL Hct 28.3 L (34.0-47.0) % MCV 103.2 H (81.0-99.0) fl MCH 34.8 H (27.0-31.0) pg MCHC 33.7 (33.0-37.0) g/dL RDW 19.2 H (11.5-14.5) % Plt Count 52 L D (130-400) K/uL PT 15.6 H (9.8-13.1) Seconds INR 1.4 Sodium 132 (132-148) mmol/l Potassium 4.2 (3.6-5.0) MMOL/L Chloride 104 (98-107) mmol/L Carbon Dioxide 24 (22-30) mmol/L Anion Gap 8 L (10-20) BUN 39 H (7-17) mg/dl Creatinine 2.1 H (0.7-1.2) mg/dl Est GFR ( Amer) 27 Est GFR (Non-Af Amer) 23 POC Glucose (mg/dL) (65-110) mg/dL Random Glucose 251 H (65-105) mg/dL Calcium 9.7 (8.4-10.2) mg/dL Phosphorus 3.8 (2.5-4.5) mg/dl Magnesium 1.9 (1.6-2.3) MG/DL Total Bilirubin 1.4 H (0.2-1.3) mg/dl AST 47 H (14-36) U/L ALT 51 (9-52) U/L Alkaline Phosphatase 88 (38-126) U/L Ammonia (11-51) umo/L NT-Pro-B Natriuret Pep 5190 H (0-900) pg/ml Total Protein 5.6 L (6.3-8.2) G/DL Albumin 2.4 L (3.5-5.0) g/dL Globulin 3.1 (2.2-3.9) gm/dL Albumin/Globulin Ratio 0.8 L (1.0-2.1) 09/01/18 09/01/18 09/01/18 Range/Units 21:42 16:27 11:39 WBC (4.8-10.8) K/uL RBC (3.80-5.20) Mil/uL Hgb (12.0-16.0) g/dL Hct (34.0-47.0) % MCV (81.0-99.0) fl MCH (27.0-31.0) pg MCHC (33.0-37.0) g/dL RDW (11.5-14.5) % Plt Count (130-400) K/uL PT (9.8-13.1) Seconds INR Sodium (132-148) mmol/l Potassium (3.6-5.0) MMOL/L Chloride (98-107) mmol/L Carbon Dioxide (22-30) mmol/L Anion Gap (10-20) BUN (7-17) mg/dl Creatinine (0.7-1.2) mg/dl Est GFR ( Amer) Est GFR (Non-Af Amer) POC Glucose (mg/dL) 218 H 222 H 224 H (65-110) mg/dL Random Glucose (65-105) mg/dL Calcium (8.4-10.2) mg/dL Phosphorus (2.5-4.5) mg/dl Magnesium (1.6-2.3) MG/DL Total Bilirubin (0.2-1.3) mg/dl AST (14-36) U/L ALT (9-52) U/L Alkaline Phosphatase (38-126) U/L Ammonia (11-51) umo/L NT-Pro-B Natriuret Pep (0-900) pg/ml Total Protein (6.3-8.2) G/DL Albumin (3.5-5.0) g/dL Globulin (2.2-3.9) gm/dL Albumin/Globulin Ratio (1.0-2.1) Laboratory Results - last 24 hr 09/01/18 09/01/18 09/01/18 11:39 16:27 21:42 WBC RBC Hgb Hct MCV MCH MCHC RDW Plt Count PT INR Sodium Potassium Chloride Carbon Dioxide Anion Gap BUN Creatinine Est GFR ( Amer) Est GFR (Non-Af Amer) POC Glucose (mg/dL) 224 H 222 H 218 H Random Glucose Calcium Phosphorus Magnesium Total Bilirubin AST ALT Alkaline Phosphatase Ammonia NT-Pro-B Natriuret Pep Total Protein Albumin Globulin Albumin/Globulin Ratio 09/02/18 09/02/18 09/02/18 04:41 04:41 04:41 WBC 6.6 RBC 2.74 L Hgb 9.5 L Hct 28.3 L MCV 103.2 H MCH 34.8 H MCHC 33.7 RDW 19.2 H Plt Count 52 L D PT 15.6 H INR 1.4 Sodium 132 Potassium 4.2 Chloride 104 Carbon Dioxide 24 Anion Gap 8 L BUN 39 H Creatinine 2.1 H Est GFR ( Amer) 27 Est GFR (Non-Af Amer) 23 POC Glucose (mg/dL) Random Glucose 251 H Calcium 9.7 Phosphorus 3.8 Magnesium 1.9 Total Bilirubin 1.4 H AST 47 H ALT 51 Alkaline Phosphatase 88 Ammonia NT-Pro-B Natriuret Pep 5190 H Total Protein 5.6 L Albumin 2.4 L Globulin 3.1 Albumin/Globulin Ratio 0.8 L 09/02/18 09/02/18 09/02/18 04:41 07:47 11:07 WBC RBC Hgb Hct MCV MCH MCHC RDW Plt Count PT INR Sodium Potassium Chloride Carbon Dioxide Anion Gap BUN Creatinine Est GFR ( Amer) Est GFR (Non-Af Amer) POC Glucose (mg/dL) 267 H 299 H Random Glucose Calcium Phosphorus Magnesium Total Bilirubin AST ALT Alkaline Phosphatase Ammonia 21 NT-Pro-B Natriuret Pep Total Protein Albumin Globulin Albumin/Globulin Ratio Fingerstick Blood Sugar Results: 267 Critical Care Progress Note - Nutrition Nutrition: Nutrition Category Date Time Status Dysphagia/Modified Consistency Diet [DIET] Diets 08/30/18 Dinner Active Assessment/Plan - Assessment and Plan (Free Text) Assessment: IMPRESSION / MAJOR PROBLEMS NOW: 1. Acute resp insuff 2 Pleural effusion ( parapneumonic / pneumonia process) and s/p R Thoracentesis : clinically improved . 2. Hypotension / Shock 2 Hypovolemia / antiHTN meds-Diuretics.: improved 3. [facility]: on HD 4. s/p Abdominal Wall Hematoma : improving 5 Thrombocytopenia : improving 54 K today 09/02 6. Chronic A fib with controlled VR, PPM. PLAN: 1. on A fib, rate controlled on PO cardizem, no AC due to thrombocytopenia and abdominal hematoma 2. Had HD yesterday next on Monday. 3. Check repeat CXR 4. on nasal cannula. 5. Stable to leave ICU with no further need of ICU intervention Will transfer out of ICU 6- Lasix 40 mg IV q 12 H.
--- NOTE | 2018-09-02 12:53 | CP.PCM.PN ---
Subjective - Date & Time of Evaluation Date of Evaluation: 09/02/18 Time of Evaluation: 12:52 - Subjective Subjective: pt is seen and examined, follow up consult is dictated #[id number] for hd in am,check labs in am Objective - Vital Signs/Intake and Output Vital Signs (last 24 hours): Temp Pulse Resp BP Pulse Ox 97.1 F L 64 23 110/51 L 98 09/02/18 12:00 09/02/18 12:00 09/02/18 12:00 09/02/18 12:00 09/02/18 12:00 Intake and Output: 09/02/18 09/02/18 06:59 18:59 Intake Total 0 260 Output Total 0 Balance 0 260 - Medications Medications: Current Medications Acetaminophen (Tylenol 650mg/20.3ml Solution Ud) 650 mg PO Q4 PRN PRN Reason: Pain, moderate (4-7) Anastrozole (Arimidex 1 Mg Tab) 1 mg PO DAILY [facility] Last Admin: 08/22/18 09:00 Dose: Not Given Benzocaine/Menthol (Cepacol Sore Throat) 1 malu PO Q2 PRN PRN Reason: Sore Throat Calcium Acetate (Phoslo) 667 mg PO DAILY [facility] Last Admin: 08/22/18 10:00 Dose: Not Given Carvedilol (Coreg) 6.25 mg PO Q12 [facility] Last Admin: 09/02/18 08:50 Dose: 6.25 mg Dextrose (Dextrose 50% Inj) 0 ml IV STAT PRN; Protocol PRN Reason: Hypoglycemia Protocol Dextrose (Glutose 15) 0 gm PO ONCE PRN; Protocol PRN Reason: Hypoglycemia Protocol Diltiazem HCl (Cardizem) 30 mg PO QID [facility] Last Admin: 09/02/18 08:50 Dose: 30 mg Dimethicone (Proshield Plus Skin Protectant) 1 applic TOP Q8 [facility] Last Admin: 09/02/18 10:31 Dose: 1 applic Epoetin Theron (Procrit) 10,000 unit IV MWF [facility] Last Admin: 08/31/18 09:14 Dose: 10,000 unit Ergocalciferol (Drisdol 50,000 Intl Units Cap) 1 cap PO QWK [facility] Escitalopram Oxalate (Lexapro) 20 mg PO DAILY [facility] Famotidine (Pepcid) 20 mg PO BID [facility] Last Admin: 09/02/18 08:56 Dose: 20 mg Furosemide (Lasix) 40 mg IV BID [facility] Stop: 09/02/18 18:00 Last Admin: 09/02/18 08:58 Dose: 40 mg Glucagon (Glucagen Diagnostic Kit) 0 mg IM STAT PRN; Protocol PRN Reason: Hypoglycemia Protocol Guaifenesin/Dextromethorphan (Robitussin Dm) 10 ml PO Q6 PRN PRN Reason: Cough Last Admin: 08/23/18 10:05 Dose: 10 ml Insulin Detemir (Levemir) 5 units SC HS [facility] Insulin Human Lispro (Humalog) 10 units SC TIDAC [facility] Last Admin: 08/22/18 12:31 Dose: Not Given Insulin Human Regular (Humulin R) 0 units SC ACCU-CHECK [facility]; Protocol Last Admin: 09/02/18 12:14 Dose: 3 unit Lactulose (Enulose) 20 gm PO TID [facility] Last Admin: 08/25/18 08:24 Dose: 20 gm Lidocaine (Lidoderm) 1 ea TD DAILY [facility] Last Admin: 09/02/18 10:24 Dose: 1 ea Lidocaine HCl (Lidocaine 2% Viscous) 15 ml PO Q8H PRN PRN Reason: dysphagia Last Admin: 08/29/18 18:50 Dose: 15 ml Losartan Potassium (Cozaar) 50 mg PO DAILY [facility] Metolazone (Zaroxolyn) 2.5 mg PO DAILY [facility] Ondansetron HCl (Zofran Inj) 4 mg IVP Q6 PRN PRN Reason: Nausea/Vomiting Last Admin: 09/01/18 16:45 Dose: 4 mg Phenol/Menthol (Phenaseptic 1.4% Throat [place]) 1 spry [place] Q2 PRN PRN Reason: Pain, Mild (1-3) Last Admin: 08/27/18 20:32 Dose: 1 spray Rifaximin (Xifaxan) 550 mg PO BID [facility]; Protocol Last Admin: 08/22/18 09:07 Dose: Not Given Saliva Substitute (First Magic Mouthwash) 5 ml PO TID [facility] Last Admin: 09/02/18 12:15 Dose: 5 ml Sitagliptin Phosphate (Januvia) 25 mg PO DAILY [facility] Last Admin: 09/02/18 08:50 Dose: 25 mg Tiotropium [place] (Spiriva) 18 mcg INH DAILY [facility] Last Admin: 09/02/18 08:48 Dose: 18 mcg - Labs Labs: 09/02/18 04:41 09/02/18 04:41 PT 15.6 Seconds (9.8-13.1) H 09/02/18 04:41 INR 1.4 09/02/18 04:41 APTT 32.2 Seconds (25.6-37.1) 08/24/18 06:45
--- NOTE | 2018-09-02 14:27 | CP.PCM.PN ---
Subjective - Date & Time of Evaluation Date of Evaluation: 09/02/18 Time of Evaluation: 08:00 - Subjective Subjective: weak bedridden afebrile family at bedside off antibiotics Objective - Vital Signs/Intake and Output Vital Signs (last 24 hours): Temp Pulse Resp BP Pulse Ox 97.1 F L 64 23 110/51 L 98 09/02/18 12:00 09/02/18 12:00 09/02/18 12:00 09/02/18 12:00 09/02/18 12:00 Intake and Output: 09/02/18 09/02/18 06:59 18:59 Intake Total 0 260 Output Total 0 Balance 0 260 - Medications Medications: Current Medications Acetaminophen (Tylenol 650mg/20.3ml Solution Ud) 650 mg PO Q4 PRN PRN Reason: Pain, moderate (4-7) Anastrozole (Arimidex 1 Mg Tab) 1 mg PO DAILY [facility] Last Admin: 08/22/18 09:00 Dose: Not Given Benzocaine/Menthol (Cepacol Sore Throat) 1 malu PO Q2 PRN PRN Reason: Sore Throat Calcium Acetate (Phoslo) 667 mg PO DAILY [facility] Last Admin: 08/22/18 10:00 Dose: Not Given Carvedilol (Coreg) 6.25 mg PO Q12 [facility] Last Admin: 09/02/18 08:50 Dose: 6.25 mg Dextrose (Dextrose 50% Inj) 0 ml IV STAT PRN; Protocol PRN Reason: Hypoglycemia Protocol Dextrose (Glutose 15) 0 gm PO ONCE PRN; Protocol PRN Reason: Hypoglycemia Protocol Diltiazem HCl (Cardizem) 30 mg PO QID [facility] Last Admin: 09/02/18 08:50 Dose: 30 mg Dimethicone (Proshield Plus Skin Protectant) 1 applic TOP Q8 [facility] Last Admin: 09/02/18 10:31 Dose: 1 applic Epoetin Theron (Procrit) 10,000 unit IV MWF [facility] Last Admin: 08/31/18 09:14 Dose: 10,000 unit Ergocalciferol (Drisdol 50,000 Intl Units Cap) 1 cap PO QWK [facility] Escitalopram Oxalate (Lexapro) 20 mg PO DAILY [facility] Famotidine (Pepcid) 20 mg PO BID [facility] Last Admin: 09/02/18 08:56 Dose: 20 mg Furosemide (Lasix) 40 mg IV BID [facility] Stop: 09/02/18 18:00 Last Admin: 09/02/18 08:58 Dose: 40 mg Glucagon (Glucagen Diagnostic Kit) 0 mg IM STAT PRN; Protocol PRN Reason: Hypoglycemia Protocol Guaifenesin/Dextromethorphan (Robitussin Dm) 10 ml PO Q6 PRN PRN Reason: Cough Last Admin: 08/23/18 10:05 Dose: 10 ml Insulin Detemir (Levemir) 5 units SC HS [facility] Insulin Human Lispro (Humalog) 10 units SC TIDAC [facility] Last Admin: 08/22/18 12:31 Dose: Not Given Insulin Human Regular (Humulin R) 0 units SC ACCU-CHECK [facility]; Protocol Last Admin: 09/02/18 12:14 Dose: 3 unit Lactulose (Enulose) 20 gm PO TID [facility] Last Admin: 08/25/18 08:24 Dose: 20 gm Lidocaine (Lidoderm) 1 ea TD DAILY [facility] Last Admin: 09/02/18 10:24 Dose: 1 ea Lidocaine HCl (Lidocaine 2% Viscous) 15 ml PO Q8H PRN PRN Reason: dysphagia Last Admin: 08/29/18 18:50 Dose: 15 ml Losartan Potassium (Cozaar) 50 mg PO DAILY [facility] Metolazone (Zaroxolyn) 2.5 mg PO DAILY [facility] Ondansetron HCl (Zofran Inj) 4 mg IVP Q6 PRN PRN Reason: Nausea/Vomiting Last Admin: 09/01/18 16:45 Dose: 4 mg Phenol/Menthol (Phenaseptic 1.4% Throat [place]) 1 spry [place] Q2 PRN PRN Reason: Pain, Mild (1-3) Last Admin: 08/27/18 20:32 Dose: 1 spray Rifaximin (Xifaxan) 550 mg PO BID [facility]; Protocol Last Admin: 08/22/18 09:07 Dose: Not Given Saliva Substitute (First Magic Mouthwash) 5 ml PO TID [facility] Last Admin: 09/02/18 12:15 Dose: 5 ml Sitagliptin Phosphate (Januvia) 25 mg PO DAILY [facility] Last Admin: 09/02/18 08:50 Dose: 25 mg Tiotropium [place] (Spiriva) 18 mcg INH DAILY [facility] Last Admin: 09/02/18 08:48 Dose: 18 mcg - Labs Labs: 09/02/18 04:41 09/02/18 04:41 PT 15.6 Seconds (9.8-13.1) H 09/02/18 04:41 INR 1.4 09/02/18 04:41 APTT 32.2 Seconds (25.6-37.1) 08/24/18 06:45 - Constitutional Appears: Non-toxic, Cachectic, Chronically Ill - Head Exam Head Exam: NORMOCEPHALIC - Eye Exam Eye Exam: absent: Scleral icterus - ENT Exam ENT Exam: Mucous Membranes Dry - Neck Exam Neck Exam: absent: Lymphadenopathy - Respiratory Exam Respiratory Exam: Decreased Breath Sounds, Prolonged Expiratory Phase, Rhonchi - Cardiovascular Exam Cardiovascular Exam: REGULAR RHYTHM, +S1, +S2 - GI/Abdominal Exam GI & Abdominal Exam: Distended, Soft - Rectal Exam Rectal Exam: Deferred - Exam Exam: NORMAL INSPECTION - Extremities Exam Extremities Exam: Pedal Edema - Back Exam Back Exam: absent: CVA tenderness (L), CVA tenderness (R) - Neurological Exam Neurological Exam: Alert, Awake - Psychiatric Exam Psychiatric exam: Depressed Assessment and Plan (1) CHF (congestive heart failure) Status: Acute (2) HCAP (healthcare-associated pneumonia) Status: Acute (3) Pleural effusion Status: Acute (4) Acute diastolic heart failure due to valvular disease Status: Acute (5) Acute dyspnea Status: Acute (6) Acute renal failure Status: Acute - Assessment and Plan (Free Text) Assessment: off antibiotics remains afebrile weakness persists may need MAURICIO
--- NOTE | 2018-09-02 14:44 | RAD ---
Date of service: 09/02/2018 HISTORY: Pleural effusion COMPARISON: Comparison chest 08/31/2018 FINDINGS: No change right IJ due port central venous access catheter with tip in the SVC. PICC line also unchanged LUNGS: Pulmonary venous congestive changes with bilateral lower lobe alveolar-type infiltrates and bilateral effusions right greater than left PLEURA: As above. In situ left-sided no pneumothorax apparent. CARDIOVASCULAR: Mild moderate aortic atherosclerotic calcification present. Cardiomegaly. No change bipolar pacemaker/defibrillator OSSEOUS STRUCTURES: No significant abnormalities. VISUALIZED UPPER ABDOMEN: Normal. OTHER FINDINGS: None. IMPRESSION: Right IJ central venous access catheter and left sided PICC line unchanged pulmonary venous congestive changes with bilateral lower lobe alveolar-type infiltrates and bilateral effusions right greater than left
[2018-09-02] MEDS ORDERED: Insulin Detemir 100 Units/ml Inj SC SCH (22:00)
[2018-09-03] MEDS: Proshield Plus GEL TOP SCH ×3 (01:00→17:53)
--- NOTE | 2018-09-03 03:13 | PN ---
DATE: 09/02/2018 FOLLOWUP RENAL CONSULTATION LOCATION: The patient is located in room 435, bed 1 ICU. REQUESTED BY: Chintan Wayne MD REASON FOR FOLLOWUP: Acute renal failure, for continuation of hemodialysis. SUBJECTIVE: Mrs. Shteh is an 82-year-old elderly female with a past medical history significant for longstanding hypertension, diabetes, pulmonary hypertension, tricuspid regurgitation, cirrhosis of the liver, thrombocytopenia who was admitted on 08/04/2018 with cough and shortness of breath. Subsequently, the patient was treated for pneumonia and CHF, status post thoracentesis x2. The patient's hospital course is complicated by acute renal failure, lethargy, fluid overload, requiring initiation of the renal replacement therapy. The patient is on hemodialysis three times a week for the last 10 days. The patient is feeling much better, not in acute distress. Denies any complaints. Denies any chest pain or palpation. Denies any fever or cough. No shortness of breath. No nausea, vomiting, or diarrhea. Still the patient has a decreased urine output. PHYSICAL EXAMINATION: VITAL SIGNS: As follows: Blood pressure this afternoon 110/51, pulse 64, respirations 23, temperature 97.1, saturation 98%. Height 4 feet 11 inches. Weight is 136 pounds. GENERAL: Mrs. Sheth is an 82-year-old elderly female, moderately built, moderately nourished, not in distress. HEENT: Pupils normal and reactive to light and accommodation. Conjunctivae pink. Sclerae anicteric. Tongue is moist. Trachea is midline. LUNGS: Symmetric on both sides. Bilateral decreased breath sounds. Bilateral crackles present. CARDIOVASCULAR SYSTEM: [place] at the fifth intercostal space, midclavicular line. S1 and S2 audible. Occasionally irregularly irregular. ABDOMEN: Normal in appearance, soft, tympanitic. No guarding. No rigidity. No hepatosplenomegaly. CENTRAL NERVOUS SYSTEM: The patient is alert, awake, and oriented x2 to 3. Sensory and motor system is within normal limits. EXTREMITIES: No cyanosis, no clubbing, no edema. CURRENT MEDICATIONS: Include as follows: Diltiazem 30 mg p.o. four times daily, Coreg 6.25 mg p.o. every 12 hours, Magic mouthwash 5 mL p.o. t.i.d., Januvia 25 mg p.o. daily, Levemir 5 units at bedtime, lidocaine patch, Epogen 10,000 units three times a week on Monday, Monday and Monday, Spiriva 18 mcg inhaler daily, Lasix 40 mg IV b.i.d. x3 doses, Zofran 4 mg IV every 6 hours p.r.n. LABORATORY DATA: Include as follows: As of 09/02/2018: WBC 6.6, hemoglobin 9.5, hematocrit is 28.3, and platelets 52. PT 15.6, INR 1.4. Sodium 132, potassium 4.2, chloride 104, CO2 of 34, BUN 39, creatinine 2.1, glucose 251, calcium 9.7, phosphorus 3.8, magnesium 1.9. Total bili 1.4, AST 47, ALT 51, alkaline phosphatase 28, ammonia 21, proBNP 5190, total protein 5.6, albumin is 2.4. Chest x-ray report as of 09/02/2018; impression, right internal jugular venous central venous access catheter and left-sided PICC line unchanged, pulmonary venous congestive changes with bilateral lower lobe alveolar type infiltrates and bilateral effusion, right greater than left. ASSESSMENT AND PLAN: In summary, Mrs. Sheth is an 82-year-old elderly female with a history of hypertension, diabetes, pulmonary hypertension, tricuspid regurgitation, cirrhosis of the liver with acute renal failure, bilateral pleural effusion, bilateral thoracentesis x2, on hemodialysis three times a week. 1. Acute renal failure, oliguric, acute tubular necrosis. Continue hemodialysis three times a week on Monday, Monday and Monday until renal function improves. 2. Bilateral pleural effusion. 3. Cirrhosis of the liver. 4. Pulmonary hypertension. 5. Tricuspid regurgitation. 6. Thrombocytopenia secondary to cirrhosis of the liver. Overall prognosis is guarded. I discussed with the patient's daughter at bedside for possible need to continue hemodialysis three times a week. If the patient's family agrees, consider to change internal jugular catheter to Perm-A-Cath. We will follow up with you. Thank you for allowing me to participate in your patient's care. Lalita Stovall MD [facility] # [id number]
[2018-09-03 05:31] LABS: MEAN CORPUSCULAR HEMOGLOBIN 34.4 pg (27.0-31.0); RBC 2.92 Mil/uL (3.80-5.20); RED CELL DISTRIBUTION WIDTH 19.2 % (11.5-14.5); WHITE BLOOD COUNT 5.1 K/uL (4.8-10.8)
[2018-09-03 05:40] LABS: ALB/GLOB RATIO 0.7 (1.0-2.1); ALBUMIN 2.5 g/dL (3.5-5.0); CALCIUM 9.9 mg/dL (8.4-10.2)
[2018-09-03] MEDS: Insulin Regular 100 units/ml SC SCH ×4 (06:56→22:01)
--- NOTE | 2018-09-03 08:34 | PN ---
DATE: 08/31/2018 FOLLOWUP RENAL CONSULTATION LOCATION: The patient is located in room 435, bed 1. REQUESTED BY: Chintan Wayne M.D. REASON FOR RENAL FOLLOWUP: Acute renal failure, oliguria and continuation of hemodialysis. SUBJECTIVE: Mrs. Sheth is an 82-year-old elderly female with a past medical history significant for longstanding hypertension, diabetes, cirrhosis of the liver, pulmonary hypertension, tricuspid regurgitation, who was admitted on 08/04/2018 with chief complaints of cough, shortness of breath associated with yellow sputum, and the patient was treated for pneumonia and CHF, status post thoracentesis x2 during her hospital course. Subsequently, the patient developed acute renal failure, fluid overload, and lethargy, requiring initiation of the renal replacement therapy. The patient is on hemodialysis three times a week for the last 10 days and the patient is feeling much better, not in acute distress, resting comfortably this morning, following commands appropriately. The patient is being dialyzed, UF goal is about 2 liters. The patient is hemodynamically stable during dialysis. PHYSICAL EXAMINATION: VITAL SIGNS: Blood pressure this morning 112/46, pulse 76, respirations about 17, temperature 97.2, saturation 100%. Height 4 feet 11 inches and weight is 133 pounds. GENERAL: Mrs. Sheth is an 82-year-old elderly female, moderately built, moderately nourished, not in acute distress. HEENT: Pupils normal, reactive to light and accommodation. Conjunctivae pink. Sclerae anicteric. Tongue is moist. Trachea is midline. LUNGS: Symmetric on both sides. Bilateral breath sounds present. Occasional basal crackles present. CARDIOVASCULAR SYSTEM: [place] at the fifth intercostal space, midclavicular line. S1 and S2 audible. No murmur. No gallop. ABDOMEN: Normal in appearance, soft, tympanitic. No guarding. No rigidity. No hepatosplenomegaly. CENTRAL NERVOUS SYSTEM: The patient is alert, awake, oriented x3. Nonfocal neuro examination. Cranial nerves II through XII grossly intact. EXTREMITIES: No cyanosis, no clubbing, no edema in the lower extremities. The patient has edema in both upper extremities. LABORATORY DATA: Chest x-ray as of 08/31/2018; impression, mild pulmonary venous congestive changes with bilateral effusions and bilateral lower lobe hilar type infiltrates. Laboratory data as of 08/31/2018, WBC 5.8, hemoglobin 9.1, hematocrit is 27.4, platelets 38. Sodium 136, potassium 4.1, chloride 104, CO2 of 28, BUN 49, creatinine 2.2, glucose 231, calcium 9.3, phosphorus 3.4, magnesium 2.1. Total bili 1.5, AST 48, ALT 49, alkaline phosphatase 75. ASSESSMENT: In summary, Mrs. Sheth is an 82-year-old elderly female with hypertension, diabetes, AFib, pulmonary hypertension, tricuspid regurgitation, cirrhosis of the liver, bilateral effusion with acute renal failure, oliguric with 24-hour intake of 662 and output of 50 mL. 1. Oliguric acute renal failure, most likely secondary to acute tubular necrosis, cannot rule out cardiorenal syndrome in view of severe pulmonary hypertension, tricuspid regurgitation and right heart failure. 2. Bilateral effusion. 3. Rule out pneumonia. 4. Thrombocytopenia most likely secondary to cirrhosis of the liver. PLAN: We will continue hemodialysis until renal function improves. Case is discussed with the patient's family at bedside and also ICU attending and also pulmonary attending Dr. Hughes in rounds. Overall prognosis is guarded. The patient may need Perm-A-Cath if need to continue dialysis for the next few weeks. Restrict the fluids to 1 liter, continue antibiotics as per Dr. Wyatt. We will follow with you. Thank you for allowing me to participate in your patient's care. Lalita Stovall MD
[2018-09-03] MEDS: Tiotropium 18 mcg Cap For Inhalation INH SCH (08:47)
[2018-09-03] MEDS: Lidocaine 5% Patch TD SCH (08:47)
[2018-09-03] MEDS: Mag&Al/Simet/Diphen/Lido 237 ML KIT PO SCH ×3 (08:51→17:27)
[2018-09-03] MEDS ORDERED: Sodium Chloride 0.9% Inj (10mL) IV ONE (09:00)
[2018-09-03] MEDS: EPOETIN ALFA 10,000 UNIT/ML ML IV SCH (15:22)
--- NOTE | 2018-09-03 17:02 | PCM.ANES ---
Anesthesia Emergent Intubation - Diagnosis Working Diagnosis:: Respiratory distress - Consult Reason for Consult:: Intubation - Intubation Attempts Previous Number of Intubation Attempts:: 0 - Pre-Intubation Vital Signs Blood Pressure: 130/70 Heart Rate: 100 Respiratory Rate: 25 Oxygen Delivery Method: Ambu-Bag Level Of Consciousness: Drowsy, Restless, Unable to follow directions - Airway Management Oropharyngeal Area Suctioned: Yes Possible Aspiration: No - Method of Intubation Intubation Method: Oral ETT ETT Size: 7.5 Lipline@: 19 Easy: Yes Atramatic: No - Intubation Devices Mandie Blade Size Used: 3 Donald Forcepts Used: No [place] Scope Used: No Fiber Optic Scope: No - Placement Confirmation Breath Sounds Present & Equal Bilaterally: Yes Positive EtCO2: Yes Portable CXR: Yes Recommendations: Ventilator, Chest X Ray, ABG
[2018-09-03] MEDS ORDERED: Propofol 10 mg/ml 1,000 MG/100 ML VIAL ONE (17:14)
[2018-09-03] MEDS ORDERED: Propofol 10 mg/ml 1,000 MG/100 ML VIAL IV SCH (17:30)
[2018-09-03 17:38] LABS: ABG ALLEN TEST YES; ARTERIAL BLOOD GAS HCO3 23.7 mmol/L (21-28); ARTERIAL BLOOD GAS HEMOGLOBIN 10.1 g/dL (11.7-17.4); ARTERIAL BLOOD GAS O2 CAPACITY 13.8 mL/dL (16-24); ARTERIAL BLOOD GAS O2 CONTENT 13.8 ML/dL (15-23); ARTERIAL BLOOD GAS O2 SAT 99.8 % (95-98); ARTERIAL BLOOD GAS PCO2 48 mm/Hg (35-45); ARTERIAL BLOOD GAS PH 7.32 (7.35-7.45); ARTERIAL BLOOD GAS PO2 96 mm/Hg (80-100); ARTERIAL BLOOD GAS TCO2 26.2 mmol/L (22-28)
--- NOTE | 2018-09-03 18:05 | RAD ---
Date of service: 09/03/2018 PROCEDURE: CHEST RADIOGRAPH, 1 VIEW HISTORY: s/p intubation COMPARISON: 09/02/2018. FINDINGS: LUNGS: Stable pulmonary parenchymal consolidative changes primarily affecting right lung. PLEURA: No pneumothorax or pleural fluid seen. CARDIOVASCULAR: Atherosclerotic calcifications identified primarily aortic arch. Cardiomegaly. No evidence of acute, significant cardiovascular disease. Position/ configuration of pacemaker Satisfactory. PICC line in satisfactory position Venous access catheter in stable, satisfactory position. OSSEOUS STRUCTURES: No significant abnormalities. VISUALIZED UPPER ABDOMEN: Normal. OTHER FINDINGS: Recently placed endotracheal tube in satisfactory position. Satisfactory position of nasogastric tube IMPRESSION: No adverse findings following endotracheal tube placement.. Stable satisfactory position of nasogastric tube Otherwise, no interval change.
[2018-09-03] MEDS ORDERED: Sodium Chloride 0.9% 250 ML IV SCH (18:30)
[2018-09-03 18:31] LABS: VENOUS BLOOD GAS BASE EXCESS 0.5 mmol/L (0.0-2.0); VENOUS BLOOD GAS PCO2 44 mmHg (40-60); VENOUS BLOOD GAS PO2 31 mm/Hg (30-55); VENOUS BLOOD PH 7.38 (7.32-7.43)
[2018-09-03 18:57] LABS: HEMOGLOBIN 9.6 g/dL (12.0-16.0); MEAN CELL VOLUME 106.2 fl (81.0-99.0); MEAN CORPUSCULAR HEMOGLOBIN 34.8 pg (27.0-31.0); MEAN CORPUSCULAR HGB CONC 32.7 g/dL (33.0-37.0); RBC 2.77 Mil/uL (3.80-5.20); RED CELL DISTRIBUTION WIDTH 20.3 % (11.5-14.5); WHITE BLOOD COUNT 6.6 K/uL (4.8-10.8)
--- NOTE | 2018-09-03 19:04 | CP.PCM.PN ---
Subjective - Date & Time of Evaluation Date of Evaluation: 09/03/18 Time of Evaluation: 19:03 - Subjective Subjective: pt is seen and examined, follow up consult is dictated #[id number] s/p hd today, s/p code on vent Objective - Vital Signs/Intake and Output Vital Signs (last 24 hours): Temp Pulse Resp BP Pulse Ox 97.0 F L 64 19 100/52 L 100 09/03/18 16:00 09/03/18 18:00 09/03/18 18:00 09/03/18 18:00 09/03/18 18:00 Intake and Output: 09/03/18 09/04/18 18:59 06:59 Intake Total 720 Output Total 0 Balance 720 - Medications Medications: Current Medications Acetaminophen (Tylenol 650mg/20.3ml Solution Ud) 650 mg PO Q4 PRN PRN Reason: Pain, moderate (4-7) Anastrozole (Arimidex 1 Mg Tab) 1 mg PO DAILY [facility] Last Admin: 08/22/18 09:00 Dose: Not Given Benzocaine/Menthol (Cepacol Sore Throat) 1 malu PO Q2 PRN PRN Reason: Sore Throat Calcium Acetate (Phoslo) 667 mg PO DAILY [facility] Last Admin: 08/22/18 10:00 Dose: Not Given Carvedilol (Coreg) 6.25 mg PO Q12 [facility] Last Admin: 09/03/18 08:52 Dose: 6.25 mg Dextrose (Dextrose 50% Inj) 0 ml IV STAT PRN; Protocol PRN Reason: Hypoglycemia Protocol Dextrose (Glutose 15) 0 gm PO ONCE PRN; Protocol PRN Reason: Hypoglycemia Protocol Diltiazem HCl (Cardizem) 30 mg PO QID [facility] Last Admin: 09/03/18 17:26 Dose: Not Given Dimethicone (Proshield Plus Skin Protectant) 1 applic TOP Q8 [facility] Last Admin: 09/03/18 17:53 Dose: 1 applic Epoetin Theron (Procrit) 10,000 unit IV MWF [facility] Last Admin: 09/03/18 15:22 Dose: 10,000 unit Ergocalciferol (Drisdol 50,000 Intl Units Cap) 1 cap PO QWK [facility] Escitalopram Oxalate (Lexapro) 20 mg PO DAILY [facility] Famotidine (Pepcid) 20 mg PO BID [facility] Last Admin: 09/03/18 17:27 Dose: Not Given Glucagon (Glucagen Diagnostic Kit) 0 mg IM STAT PRN; Protocol PRN Reason: Hypoglycemia Protocol Guaifenesin/Dextromethorphan (Robitussin Dm) 10 ml PO Q6 PRN PRN Reason: Cough Last Admin: 08/23/18 10:05 Dose: 10 ml Propofol (Diprivan) 1,000 mg in 100 mls @ 1.823 mls/hr IV .Q24H KATEY; Protocol Stop: 09/04/18 17:26 Last Admin: 09/03/18 17:53 Dose: 5 mcg/kg/min, 1.823 mls/hr Sodium Chloride (Sodium Chloride 0.9%) 250 mls @ 0 mls/hr IV .Q0M KATEY Stop: 09/04/18 18:27 Insulin Detemir (Levemir) 10 units SC HS [facility] Insulin Human Lispro (Humalog) 10 units SC TIDAC [facility] Last Admin: 08/22/18 12:31 Dose: Not Given Insulin Human Regular (Humulin R) 0 units SC ACCU-CHECK [facility]; Protocol Last Admin: 09/03/18 17:52 Dose: 2 unit Lactulose (Enulose) 20 gm PO TID [facility] Last Admin: 08/25/18 08:24 Dose: 20 gm Lidocaine (Lidoderm) 1 ea TD DAILY [facility] Last Admin: 09/03/18 08:47 Dose: 1 ea Lidocaine HCl (Lidocaine 2% Viscous) 15 ml PO Q8H PRN PRN Reason: dysphagia Last Admin: 08/29/18 18:50 Dose: 15 ml Losartan Potassium (Cozaar) 50 mg PO DAILY [facility] Metolazone (Zaroxolyn) 2.5 mg PO DAILY [facility] Ondansetron HCl (Zofran Inj) 4 mg IVP Q6 PRN PRN Reason: Nausea/Vomiting Last Admin: 09/01/18 16:45 Dose: 4 mg Phenol/Menthol (Phenaseptic 1.4% Throat [place]) 1 spry MT Q2 PRN PRN Reason: Pain, Mild (1-3) Last Admin: 08/27/18 20:32 Dose: 1 spray Rifaximin (Xifaxan) 550 mg PO BID [facility]; Protocol Last Admin: 08/22/18 09:07 Dose: Not Given Saliva Substitute (First Magic Mouthwash) 5 ml PO TID [facility] Last Admin: 09/03/18 17:27 Dose: Not Given Sitagliptin Phosphate (Januvia) 25 mg PO DAILY [facility] Last Admin: 09/03/18 08:52 Dose: 25 mg Tiotropium [place] (Spiriva) 18 mcg INH DAILY [facility] Last Admin: 09/03/18 08:47 Dose: 18 mcg - Labs Labs: 09/03/18 04:30 09/03/18 04:30 PT 15.6 Seconds (9.8-13.1) H 09/02/18 04:41 INR 1.4 09/02/18 04:41 APTT 32.2 Seconds (25.6-37.1) 08/24/18 06:45
[2018-09-03 19:06] LABS: TROPONIN I 0.069 ng/mL (0.00-0.120)
[2018-09-03 19:34] LABS: ALB/GLOB RATIO 0.7 (1.0-2.1); ALBUMIN 2.2 g/dL (3.5-5.0); CALCIUM 8.8 mg/dL (8.4-10.2)
[2018-09-03] MEDS ORDERED: Insulin Detemir 100 Units/ml Inj SC SCH (22:00)
--- NOTE | 2018-09-04 00:47 | PN ---
DATE: 09/03/2018 CARDIOPULMONARY RESUSCITATION NOTE DATE OF RESUSCITATION: 09/03/2018. LOCATION: The patient in ICU, Bed 435. SUBJECTIVE: An 82-year-old female with diabetes mellitus type II, chronic obstructive pulmonary disease, paroxysmal AFib, status post permanent pacemaker insertion, cirrhosis, and thrombocytopenia, admitted with respiratory failure, large right pleural effusion, status post thoracentesis, acute on chronic renal failure. The patient undergoing dialysis under monitored setting. The patient was noted to become restless with choking with no pulse. Telemetry showing pulseless electrical activity, protocol initiated. Epinephrine x2 administered. The patient rebounded with palpable pulse, intubated, placed on mechanical ventilation, sedated on Diprivan drip. Postprocedure chest x-ray shows adequate placement endotracheal tube, ABG pending. Blood sugar of 227. Family is informed about the outcome of the resuscitation. Melvin Lopez MD
[2018-09-04] MEDS: Proshield Plus GEL TOP SCH ×3 (01:27→17:34)
--- NOTE | 2018-09-04 01:30 | PN ---
DATE: 09/03/2018 LOCATION: The patient is in ICU, bed 435. TIME SPENT: 25 minutes. The patient is seen and evaluated at the bedside. Case discussed in multidisciplinary ICU rounds this morning. Past medical, surgical, social, and family history reviewed. Director Phone's note reviewed. SUBJECTIVE: Ms. Sheth, an 82-year-old female with history significant for longstanding hypertension, diabetes mellitus type 2, hyperlipidemia, pulmonary hypertension, moderate to severe tricuspid regurgitation, cirrhosis of the liver, admitted through emergency room complaining of increasing shortness of breath associated with cough, found to have pneumonia, status post treatment with IV antibiotics, bilateral left pleural effusion, status post thoracentesis. Hospital course is complicated with acute renal failure, change in the mental status, undergoing dialysis three times a week. Overnight status post dialysis on last Monday, remains alert, awake, but slow to respond. PHYSICAL EXAMINATION: VITAL SIGNS: Temperature 97.5, heart rate 61 and regular, blood pressure 150/90, mean arterial pressure 98, respirations 17-22 thoracoabdominal, saturation 98%-100% on nasal oxygen supplement 2 liters nasal cannula. HEAD, EYES, EARS, NOSE AND THROAT: Pupils are reactive, conjunctivae are pale, sclerae are white. NECK: Supple. No jugular venous distention. LUNGS: Bilateral breath sounds, fine crepitations at the right base. HEART: Rhythm regular. S1 and S2 normal. ABDOMEN: Bowel sounds present, hematoma improving. EXTREMITIES: With 1+ edema. NEUROLOGIC: Lethargic but moves all four extremities and slow to respond. CURRENT MEDICATIONS: Include: Tylenol 650 mg every 4 hours p.r.n., Arimidex 1 mg daily, Cepacol sore throat lozenge one p.o. every 12 hour p.r.n., PhosLo 667 mg p.o. daily, Coreg 6.25 mg p.o. every 12 hours, Cardizem 30 mg p.o. four times a day, Proshield Plus skin protectant 1 application topically every 8 hours, Procrit 10,000 units Monday, Monday, and Monday, ergocalciferol 1 capsule daily, Lexapro 20 mg p.o. daily, Pepcid 20 mg p.o. twice daily, Robitussin DM 10 mL p.o. every 6 hours p.r.n., Levemir 10 units subcu at night, Humalog 10 units subcu three times a day before meal, lactulose 20 g p.o. three times daily, Lidoderm patch daily, lidocaine 2% viscous 15 mL every 8 hours p.r.n. for dysphagia, Cozaar 50 mg p.o. daily, metolazone 2.5 mg p.o. daily, phenol/menthol phenaseptic 1.4% throat spray one spray every 2 hours p.r.n. for mild to moderate pain, Xifaxan 550 mg p.o. twice daily, Januvia 25 mg p.o. daily, Spiriva 18 mcg one inhalation daily. LABORATORY DATA: WBC 5.1, hemoglobin 10, hematocrit 30.3, and platelet count 445. SMA-7: Sodium 132, potassium 3.9, chloride 97, CO2 of 30, blood urea nitrogen 46, creatinine 2.2, random glucose 251, calcium 9.9, phosphorus 4.2, and magnesium 1.9. Total bilirubin 1. AST 46, ALT 62. Alkaline phosphate 97. Total protein 5.8, albumin 2.5. AG ratio 0.7. Urine osmolality 353. Creatinine 86.4. Random sodium 6. IMPRESSION: Acute respiratory insufficiency secondary to pleural effusion; parapneumonic secondary to pneumonia, status post right thoracentesis, clinically improved; hypertension secondary to hypovolemia and antihypertensive medications, improved; acute kidney injury, on hemodialysis; status post abdominal wall hematoma, improved; thrombocytopenia, status post transfusion of platelet cells, currently at 45; chronic atrial fibrillation with controlled ventricular response, status post permanent pacemaker insertion. We will continue with current medications. Continue hemodialysis as per renal consult. Oxygen supplement. The patient is clinically stable for transfer to telemetry floor. Melvin Lopez MD
--- NOTE | 2018-09-04 03:25 | PN ---
DATE: 09/03/2018 FOLLOWUP RENAL CONSULTATION LOCATION: The patient is located in room 435, bed 1. REQUESTED BY: Chintan Wayne M.D. REASON FOR FOLLOWUP: Acute renal failure, on hemodialysis three times a week. SUBJECTIVE: Mrs. Sheth is an 82-year-old elderly female with a past medical history significant for longstanding hypertension, diabetes, pulmonary hypertension, tricuspid regurgitation, cirrhosis of the liver, who was admitted on 08/04/2018 with chief complaints of shortness of breath and cough associated with yellow sputum and is treated for pneumonia and CHF. The hospital course is complicated by thoracenteses x2 and also acute renal failure, worsening renal function, lethargy, and also anasarca, requiring initiation of hemodialysis. The patient is on hemodialysis three times a week for the last two weeks, and the patient was dialyzed this afternoon. The patient suddenly became short of breath. As per the dialysis nurse, her vital signs are stable, and suddenly, she went into respiratory failure and family was apparently feeding earlier. Her hemodialysis was discontinued. The patient is hemodynamically stable throughout the dialysis. The patient was in PEA and regained pulse after 8 minutes and intubated. The patient is on ventilator, awake, and following commands now. PHYSICAL EXAMINATION: VITAL SIGNS: As follows: Blood pressure 110/56, pulse 68, respirations 20, temperature 97.1, saturation 100%. Height 4 feet 11 inches, weight is 134 pounds. GENERAL: Mrs. Sheth is an 82-year-old elderly female, moderately built, moderately nourished, not in distress. HEENT: Pupils are normal and reactive to light and accommodation. Conjunctivae pink. Sclerae anicteric. Tongue is moist. Trachea is midline. LUNGS: Symmetric on both sides. Decreased sounds bilateral. CARDIOVASCULAR: [place] at the fifth intercostal space, midclavicular line. S1 and S2 audible. Irregularly irregular, in AFib. ABDOMEN: Normal in appearance, soft, tympanitic. No guarding. No rigidity. No hepatosplenomegaly. CENTRAL NERVOUS SYSTEM: The patient is on ventilator, awake and following commands. EXTREMITIES: No cyanosis, no clubbing, no edema. CURRENT MEDICATIONS: Include as follows: Cardizem 30 mg p.o. 4 times daily., Coreg 6.25 mg p.o. every 12 hours, Diprivan drip, Lidocaine patch, Pepcid 20 mg p.o. b.i.d., Epogen 10,000 units three times a week Monday, Monday and Monday, Robitussin DM, Spiriva, and Zofran p.r.n. LABORATORY DATA: Include as follows: As of 09/03/2018: WBC 6.6, hemoglobin 9.6, hematocrit is 29.5, platelets 22. ABG, pH 7.32, pCO2 of 48, pO2 of 96, bicarb 23.7, and saturation 99.8. Sodium 135, potassium 4.3, chloride 100, CO2 of 26, BUN 35, creatinine 1.9, glucose 235, calcium 8.8, phosphorus 3.9, magnesium 1.7. Total bili 1.2, AST 46, ALT 60, alkaline phosphatase 87, troponin 0.069, total protein 5.4, albumin is 2.2. These are post dialysis labs after one hour dialysis. Chest x-ray report as of 09/03/2018, stable pulmonary parenchymal consolidative changes primarily affecting the right lung. No pneumothorax or pleural fluid seen. Impression: No adverse findings following endotracheal tube placement, stable satisfactory position of the nasogastric tube; otherwise, no interval change. ASSESSMENT AND PLAN: In summary, Mrs. Sheth is an 82-year-old elderly female with a history of hypertension, diabetes, right heart failure, pulmonary hypertension, tricuspid regurgitation, cirrhosis of the liver, thrombocytopenia with acute renal failure, on hemodialysis three times a week. The patient is being dialyzed this afternoon and suddenly the patient became unresponsive, respiratory failure requiring intubation, and hemodialysis was discontinued after about 40 minutes to 1 hour treatment. Apparently, the patient's family was feeding earlier as per the dialysis nurse. The patient was stable throughout the hemodialysis treatment as per the registered nurse. 1. Renal failure. Continue hemodialysis three times a week. 2. Cirrhosis of the liver. 3. Bilateral pleural effusion, right more than the left, rule out pneumonia. 4. Thrombocytopenia. 5. Acute respiratory failure, status post code for 8 minutes. The patient is on vent, following commands, awake. We will consider next hemodialysis on Monday as per the patient's family request. Overall prognosis is poor. Thank you for allowing me to participate in your patient's care. Lalita Stovall MD [facility]
[2018-09-04 04:41] LABS: ABG ALLEN TEST YES; ARTERIAL BLOOD GAS HCO3 25.7 mmol/L (21-28); ARTERIAL BLOOD GAS HEMOGLOBIN 9.5 g/dL (11.7-17.4); ARTERIAL BLOOD GAS O2 CAPACITY 14.1 mL/dL (16-24); ARTERIAL BLOOD GAS O2 CONTENT 14.2 ML/dL (15-23); ARTERIAL BLOOD GAS O2 SAT 100.9 % (95-98); ARTERIAL BLOOD GAS PCO2 26 mm/Hg (35-45); ARTERIAL BLOOD GAS PH 7.55 (7.35-7.45); ARTERIAL BLOOD GAS PO2 400 mm/Hg (80-100); ARTERIAL BLOOD GAS TCO2 23.5 mmol/L (22-28)
[2018-09-04 05:29] LABS: HEMOGLOBIN 9.4 g/dL (12.0-16.0); MEAN CELL VOLUME 103.2 fl (81.0-99.0); MEAN CORPUSCULAR HEMOGLOBIN 34.6 pg (27.0-31.0); MEAN CORPUSCULAR HGB CONC 33.5 g/dL (33.0-37.0); RBC 2.73 Mil/uL (3.80-5.20); RED CELL DISTRIBUTION WIDTH 21.2 % (11.5-14.5); WHITE BLOOD COUNT 7.9 K/uL (4.8-10.8)
[2018-09-04 05:39] LABS: ALB/GLOB RATIO 0.8 (1.0-2.1); ALBUMIN 2.4 g/dL (3.5-5.0); CALCIUM 8.9 mg/dL (8.4-10.2)
[2018-09-04] MEDS: Mag&Al/Simet/Diphen/Lido 237 ML KIT PO SCH ×3 (08:59→17:34)
--- NOTE | 2018-09-04 08:59 | RAD ---
Date of service: 09/04/2018 HISTORY: resp failure COMPARISON: Portable chest 09/03/2018 FINDINGS: LUNGS: With endotracheal tube, left PICC and right central venous dialysis catheter not appear significantly changed in position. Interval nasogastric tube deployment is noted entering into the left ward abdomen with the tip off the image. Note, telemetry hardware, external pacer and right pacemaker generator obscure right chest significantly. A right pleural effusion persists with underlying airspace disease not completely excluded. Limited patchy density seen the left base suggestive of atelectasis with left chest remaining largely clear. No left pleural effusion. No pneumothorax bilaterally. PLEURA: As above. CARDIOVASCULAR: Calc[place] atherosclerotic changes are seen related to the thoracic aorta. Stable prominent cardiac silhouette. No pulmonary vascular congestion. OSSEOUS STRUCTURES: No significant abnormalities. VISUALIZED UPPER ABDOMEN: Normal. OTHER FINDINGS: None. IMPRESSION: Interval nasogastric tube deployment entering into the abdomen with tip off the image. Normal change in remaining tubes and catheters. Prominent cardiac silhouette remains without pulmonary vascular congestion. Mild right pleural effusion unchanged. Limited left basilar airspace disease reflecting atelectasis most likely. Various hardware obscures the chest. Please see discussion above.
[2018-09-04] MEDS: Lidocaine 5% Patch TD SCH (09:00)
[2018-09-04] MEDS: Insulin Regular 100 units/ml SC SCH ×4 (09:00→23:00)
[2018-09-04] MEDS: Tiotropium 18 mcg Cap For Inhalation INH SCH (09:02)
--- NOTE | 2018-09-04 09:16 | CP.PCM.PN ---
Subjective - Date & Time of Evaluation Date of Evaluation: 09/04/18 Time of Evaluation: 09:17 - Subjective Subjective: INTUBATED AND BEING VENTILATED FOLLOWING FOLLOWING ASPIRATION Objective - Vital Signs/Intake and Output Vital Signs (last 24 hours): Temp Pulse Resp BP Pulse Ox 98.9 F 84 26 H 104/56 L 100 09/04/18 08:00 09/04/18 08:56 09/04/18 08:00 09/04/18 08:56 09/04/18 08:00 Intake and Output: 09/04/18 09/04/18 06:59 18:59 Intake Total 262 Output Total 1 Balance 261 - Medications Medications: Current Medications Acetaminophen (Tylenol 650mg/20.3ml Solution Ud) 650 mg PO Q4 PRN PRN Reason: Pain, moderate (4-7) Anastrozole (Arimidex 1 Mg Tab) 1 mg PO DAILY [facility] Last Admin: 08/22/18 09:00 Dose: Not Given Benzocaine/Menthol (Cepacol Sore Throat) 1 malu PO Q2 PRN PRN Reason: Sore Throat Calcium Acetate (Phoslo) 667 mg PO DAILY [facility] Last Admin: 08/22/18 10:00 Dose: Not Given Carvedilol (Coreg) 6.25 mg PO Q12 [facility] Last Admin: 09/04/18 08:56 Dose: 6.25 mg Dextrose (Dextrose 50% Inj) 0 ml IV STAT PRN; Protocol PRN Reason: Hypoglycemia Protocol Dextrose (Glutose 15) 0 gm PO ONCE PRN; Protocol PRN Reason: Hypoglycemia Protocol Diltiazem HCl (Cardizem) 30 mg PO QID [facility] Last Admin: 09/04/18 08:56 Dose: 30 mg Dimethicone (Proshield Plus Skin Protectant) 1 applic TOP Q8 [facility] Last Admin: 09/04/18 09:01 Dose: 1 applic Epoetin Theron (Procrit) 10,000 unit IV MWF [facility] Last Admin: 09/03/18 15:22 Dose: 10,000 unit Ergocalciferol (Drisdol 50,000 Intl Units Cap) 1 cap PO QWK [facility] Escitalopram Oxalate (Lexapro) 20 mg PO DAILY [facility] Famotidine (Pepcid) 20 mg PO BID [facility] Last Admin: 09/04/18 09:00 Dose: 20 mg Glucagon (Glucagen Diagnostic Kit) 0 mg IM STAT PRN; Protocol PRN Reason: Hypoglycemia Protocol Guaifenesin/Dextromethorphan (Robitussin Dm) 10 ml PO Q6 PRN PRN Reason: Cough Last Admin: 08/23/18 10:05 Dose: 10 ml Propofol (Diprivan) 1,000 mg in 100 mls @ 1.823 mls/hr IV .Q24H [facility]; Protocol Stop: 09/04/18 17:26 Last Admin: 09/03/18 17:53 Dose: 5 mcg/kg/min, 1.823 mls/hr Sodium Chloride (Sodium Chloride 0.9%) 250 mls @ 0 mls/hr IV .Q0M [facility] Stop: 09/04/18 18:27 Insulin Detemir (Levemir) 10 units SC HS [facility] Insulin Human Lispro (Humalog) 10 units SC TIDAC [facility] Last Admin: 08/22/18 12:31 Dose: Not Given Insulin Human Regular (Humulin R) 0 units SC ACCU-CHECK [facility]; Protocol Last Admin: 09/04/18 09:00 Dose: Not Given Lactulose (Enulose) 20 gm PO TID [facility] Last Admin: 08/25/18 08:24 Dose: 20 gm Lidocaine (Lidoderm) 1 ea TD DAILY [facility] Last Admin: 09/04/18 09:00 Dose: 1 ea Lidocaine HCl (Lidocaine 2% Viscous) 15 ml PO Q8H PRN PRN Reason: dysphagia Last Admin: 08/29/18 18:50 Dose: 15 ml Losartan Potassium (Cozaar) 50 mg PO DAILY [facility] Metolazone (Zaroxolyn) 2.5 mg PO DAILY [facility] Ondansetron HCl (Zofran Inj) 4 mg IVP Q6 PRN PRN Reason: Nausea/Vomiting Last Admin: 09/01/18 16:45 Dose: 4 mg Phenol/Menthol (Phenaseptic 1.4% Throat [place]) 1 spry MT Q2 PRN PRN Reason: Pain, Mild (1-3) Last Admin: 08/27/18 20:32 Dose: 1 spray Rifaximin (Xifaxan) 550 mg PO BID [facility]; Protocol Last Admin: 08/22/18 09:07 Dose: Not Given Saliva Substitute (First Magic Mouthwash) 5 ml PO TID [facility] Last Admin: 09/04/18 08:59 Dose: 5 ml Sitagliptin Phosphate (Januvia) 25 mg PO DAILY [facility] Last Admin: 09/03/18 08:52 Dose: 25 mg Tiotropium [place] (Spiriva) 18 mcg INH DAILY [facility] Last Admin: 09/04/18 09:02 Dose: Not Given - Labs Labs: 09/04/18 04:25 09/04/18 04:25 PT 15.6 Seconds (9.8-13.1) H 09/02/18 04:41 INR 1.4 09/02/18 04:41 APTT 32.2 Seconds (25.6-37.1) 08/24/18 06:45 - Constitutional Appears: Chronically Ill - Head Exam Head Exam: ATRAUMATIC, NORMAL INSPECTION, NORMOCEPHALIC - Eye Exam Eye Exam: EOMI, Normal appearance, PERRL Pupil Exam: NORMAL ACCOMODATION, PERRL - ENT Exam ENT Exam: Mucous Membranes Moist, Normal Exam - Neck Exam Neck Exam: Full ROM, Normal Inspection. absent: Lymphadenopathy - Respiratory Exam Respiratory Exam: Rales, NORMAL BREATHING PATTERN - Cardiovascular Exam Cardiovascular Exam: REGULAR RHYTHM, +S1, +S2. absent: Murmur - GI/Abdominal Exam GI & Abdominal Exam: Soft, Normal Bowel Sounds. absent: Tenderness - Rectal Exam Rectal Exam: NORMAL INSPECTION - Extremities Exam Extremities Exam: Full ROM, Normal Capillary Refill, Normal Inspection. absent: Joint Swelling, Pedal Edema - Back Exam Back Exam: NORMAL INSPECTION - Neurological Exam Neurological Exam: Alert, Awake - Skin Skin Exam: Dry, Intact, Normal Color, Warm Assessment and Plan - Assessment and Plan (Free Text) Assessment: ACUTE RESPIRATORY FAILURE Plan: CONTINUE VENT CARE ATTEMPT TO EXTUBATE ONCE STABLE
--- NOTE | 2018-09-04 09:39 | CP.PCM.PN ---
Subjective - Date & Time of Evaluation Date of Evaluation: 09/04/18 Time of Evaluation: 09:38 - Subjective Subjective: pt i seen and examined, follow up consult is dictated #[id number] wsill hold hd until further order Objective - Vital Signs/Intake and Output Vital Signs (last 24 hours): Temp Pulse Resp BP Pulse Ox 98.9 F 84 26 H 104/56 L 100 09/04/18 08:00 09/04/18 08:56 09/04/18 08:00 09/04/18 08:56 09/04/18 08:00 Intake and Output: 09/04/18 09/04/18 06:59 18:59 Intake Total 262 Output Total 1 Balance 261 - Medications Medications: Current Medications Acetaminophen (Tylenol 650mg/20.3ml Solution Ud) 650 mg PO Q4 PRN PRN Reason: Pain, moderate (4-7) Anastrozole (Arimidex 1 Mg Tab) 1 mg PO DAILY [facility] Last Admin: 08/22/18 09:00 Dose: Not Given Benzocaine/Menthol (Cepacol Sore Throat) 1 malu PO Q2 PRN PRN Reason: Sore Throat Calcium Acetate (Phoslo) 667 mg PO DAILY [facility] Last Admin: 08/22/18 10:00 Dose: Not Given Carvedilol (Coreg) 6.25 mg PO Q12 [facility] Last Admin: 09/04/18 08:56 Dose: 6.25 mg Dextrose (Dextrose 50% Inj) 0 ml IV STAT PRN; Protocol PRN Reason: Hypoglycemia Protocol Dextrose (Glutose 15) 0 gm PO ONCE PRN; Protocol PRN Reason: Hypoglycemia Protocol Diltiazem HCl (Cardizem) 30 mg PO QID [facility] Last Admin: 09/04/18 08:56 Dose: 30 mg Dimethicone (Proshield Plus Skin Protectant) 1 applic TOP Q8 [facility] Last Admin: 09/04/18 09:01 Dose: 1 applic Epoetin Theron (Procrit) 10,000 unit IV MWF [facility] Last Admin: 09/03/18 15:22 Dose: 10,000 unit Ergocalciferol (Drisdol 50,000 Intl Units Cap) 1 cap PO QWK [facility] Escitalopram Oxalate (Lexapro) 20 mg PO DAILY [facility] Famotidine (Pepcid) 20 mg PO BID [facility] Last Admin: 09/04/18 09:00 Dose: 20 mg Glucagon (Glucagen Diagnostic Kit) 0 mg IM STAT PRN; Protocol PRN Reason: Hypoglycemia Protocol Guaifenesin/Dextromethorphan (Robitussin Dm) 10 ml PO Q6 PRN PRN Reason: Cough Last Admin: 08/23/18 10:05 Dose: 10 ml Propofol (Diprivan) 1,000 mg in 100 mls @ 1.823 mls/hr IV .Q24H [facility]; Protocol Stop: 09/04/18 17:26 Last Admin: 09/03/18 17:53 Dose: 5 mcg/kg/min, 1.823 mls/hr Sodium Chloride (Sodium Chloride 0.9%) 250 mls @ 0 mls/hr IV .Q0M [facility] Stop: 09/04/18 18:27 Insulin Detemir (Levemir) 10 units SC HS [facility] Insulin Human Lispro (Humalog) 10 units SC TIDAC [facility] Last Admin: 08/22/18 12:31 Dose: Not Given Insulin Human Regular (Humulin R) 0 units SC ACCU-CHECK [facility]; Protocol Last Admin: 09/04/18 09:00 Dose: Not Given Lactulose (Enulose) 20 gm PO TID [facility] Last Admin: 08/25/18 08:24 Dose: 20 gm Lidocaine (Lidoderm) 1 ea TD DAILY [facility] Last Admin: 09/04/18 09:00 Dose: 1 ea Lidocaine HCl (Lidocaine 2% Viscous) 15 ml PO Q8H PRN PRN Reason: dysphagia Last Admin: 08/29/18 18:50 Dose: 15 ml Losartan Potassium (Cozaar) 50 mg PO DAILY [facility] Metolazone (Zaroxolyn) 2.5 mg PO DAILY [facility] Ondansetron HCl (Zofran Inj) 4 mg IVP Q6 PRN PRN Reason: Nausea/Vomiting Last Admin: 09/01/18 16:45 Dose: 4 mg Phenol/Menthol (Phenaseptic 1.4% Throat [place]) 1 spry MT Q2 PRN PRN Reason: Pain, Mild (1-3) Last Admin: 08/27/18 20:32 Dose: 1 spray Rifaximin (Xifaxan) 550 mg PO BID [facility]; Protocol Last Admin: 08/22/18 09:07 Dose: Not Given Saliva Substitute (First Magic Mouthwash) 5 ml PO TID [facility] Last Admin: 09/04/18 08:59 Dose: 5 ml Sitagliptin Phosphate (Januvia) 25 mg PO DAILY [facility] Last Admin: 09/03/18 08:52 Dose: 25 mg Tiotropium [place] (Spiriva) 18 mcg INH DAILY [facility] Last Admin: 09/04/18 09:02 Dose: Not Given - Labs Labs: 09/04/18 04:25 09/04/18 04:25 PT 15.6 Seconds (9.8-13.1) H 09/02/18 04:41 INR 1.4 09/02/18 04:41 APTT 32.2 Seconds (25.6-37.1) 08/24/18 06:45
--- NOTE | 2018-09-04 11:19 | CP.CCUPN ---
CCU Subjective - Physician Review Subjective (Free Text): 09/04/18 The patient was Seen/interviewed and examined by me at the bedside during ICU round, Medical records reviewed and Management issues were discussed and formulated with the house staff. Events reviewed 82 Years old Female with PMHx of hypertension, hypothyroidism, hyperlipidemia, diabetes, atrial fibrillation, asthma/COPD and Pulmonary Hypertension (?Connective tissue disorder Vs Liver Cirrhosis). Who intially presents to ER 08/04 for evaluation of shortness of breath associated with cough and decreased appetite onset 2 days. Admitted with acute congestive heart failure Transferred to the ICU for management of Acute resp insuff secondary to CHF, Pneumonia with Pleural effusion 08/15, she underwent US guided right thoracentesis for Right pleural effusion 1.45 liters of straw colored fluid Removed 08/21, she underwent US guided right thoracentesis for Right pleural effusion 1200 cc of gonzales colored fluid Removed Patient more awake, opens eyes to verbal stimuli,follow commands, she was placed on CPAP at 9:30AM, successfully extubated today. Awake, follows some commands Comfortable, NAD Denies any chest pain, SOB or Palpitations Afebrile, A-Fib on the monitor Last 24H 500/0 Critical Care Time Spent (in minutes): 38 CCU Objective - Vital Signs / Intake & Output Vital Signs (Last 4 hours): Vital Signs Temp Pulse Resp BP Pulse Ox 09/04/18 10:00 82 21 104/56 L 100 09/04/18 09:00 78 24 100 09/04/18 08:56 84 104/56 L 09/04/18 08:00 98.9 F 87 26 H 104/56 L 100 Intake and Output (Last 8hrs): Intake & Output 09/03/18 09/04/18 09/04/18 22:59 06:59 14:59 Intake Total 750 12 102 Output Total 1 Balance 749 12 102 Weight 134 lb Intake: IV 750 12 Intake, Piggyback 2 Free Water Flush 100 Output: Stool 1 Emesis 0 Other: # Bowel Movements 0 1 - Physical Exam Head: Positive for: Atraumatic, Normocephalic Pupils: Positive for: PERRL Conjunctiva: Positive for: Normal Ears: Positive for: Normal Mouth: Positive for: Moist Mucous Membranes Nose (External): Positive for: Atraumatic Neck: Positive for: Normal Range of Motion Respiratory/Chest: Positive for: Rhonchi Cardiovascular: Positive for: Irregular Rhythm Abdomen: Positive for: Normal Bowel Sounds Upper Extremity: Positive for: Normal Inspection Lower Extremity: Positive for: Normal Inspection Neurological: Positive for: Other (lethergic) - Medications Active Medications: Active Medications Generic Name Dose Route Start Last Admin Trade Name Freq PRN Reason Stop Dose Admin Acetaminophen 650 mg 09/01/18 07:06 Tylenol 650mg/20.3ml Solution Ud PO Q4 PRN Pain, moderate (4-7) Anastrozole 1 mg 08/22/18 09:00 08/22/18 09:00 Arimidex 1 Mg Tab PO Not Given DAILY KATEY Benzocaine/Menthol 1 malu 08/22/18 00:16 Cepacol Sore Throat PO Q2 PRN Sore Throat Calcium Acetate 667 mg 08/22/18 09:00 08/22/18 10:00 Phoslo PO Not Given DAILY KATEY Carvedilol 6.25 mg 08/29/18 21:00 09/04/18 08:56 Coreg PO 6.25 mg Q12 KATEY Administration Dextrose 0 ml 08/22/18 00:16 Dextrose 50% Inj IV STAT PRN Hypoglycemia Protocol Protocol Dextrose 0 gm 08/22/18 00:16 Glutose 15 PO ONCE PRN Hypoglycemia Protocol Protocol Diltiazem HCl 30 mg 08/29/18 14:15 09/04/18 08:56 Cardizem PO 30 mg QID KATEY Administration Dimethicone 1 applic 08/22/18 01:00 09/04/18 09:01 Proshield Plus Skin Protectant TOP 1 applic Q8 KATEY Administration Epoetin Theron 10,000 unit 08/27/18 09:00 09/03/18 15:22 Procrit IV 10,000 unit MWF K[facility] Administration Ergocalciferol 1 cap 08/22/18 00:16 Drisdol 50,000 Intl Units Cap PO QWK KATEY Escitalopram Oxalate 20 mg 08/22/18 09:00 Lexapro PO DAILY [facility] Famotidine 20 mg 08/26/18 17:00 09/04/18 09:00 Pepcid PO 20 mg BID KATEY Administration Furosemide 40 mg 09/04/18 09:45 Lasix IVP BID KATEY Glucagon 0 mg 08/22/18 00:16 Glucagen Diagnostic Kit IM STAT PRN Hypoglycemia Protocol Protocol Guaifenesin/Dextromethorphan 10 ml 08/22/18 00:16 08/23/18 10:05 Robitussin Dm PO 10 ml Q6 PRN Administration Cough Propofol 1,000 mg in 100 mls @ 1.823 mls/hr 09/03/18 17:30 09/03/18 17:53 Diprivan IV 09/04/18 17:26 5 mcg/kg/min .Q24H KATEY 1.823 mls/hr Administration Protocol 5 MCG/KG/MIN Sodium Chloride 250 mls @ 0 mls/hr 09/03/18 18:30 Sodium Chloride 0.9% IV 09/04/18 18:27 .Q0M [facility] As Directed Insulin Detemir 10 units 09/03/18 22:00 Levemir SC HS [facility] Insulin Human Lispro 10 units 08/22/18 07:30 08/22/18 12:31 Humalog SC Not Given TIDAC [facility] Insulin Human Regular 0 units 08/22/18 23:00 09/04/18 09:00 Humulin R SC Not Given ACCU-CHECK [facility] Protocol Lactulose 20 gm 08/22/18 09:00 08/25/18 08:24 Enulose PO 20 gm TID [facility] Administration Lidocaine 1 ea 08/22/18 09:00 09/04/18 09:00 Lidoderm TD 1 ea DAILY [facility] Administration Lidocaine HCl 15 ml 08/26/18 14:01 08/29/18 18:50 Lidocaine 2% Viscous PO 15 ml Q8H PRN Administration dysphagia Losartan Potassium 50 mg 08/22/18 09:00 Cozaar PO DAILY [facility] Metolazone 2.5 mg 08/22/18 09:00 Zaroxolyn PO DAILY [facility] Ondansetron HCl 4 mg 09/01/18 16:25 09/01/18 16:45 Zofran Inj IVP 4 mg Q6 PRN Administration Nausea/Vomiting Phenol/Menthol 1 spry 08/23/18 15:10 08/27/18 20:32 Phenaseptic 1.4% Throat Bland MT 1 spray Q2 PRN Administration Pain, Mild (1-3) Rifaximin 550 mg 08/22/18 09:00 08/22/18 09:07 Xifaxan PO Not Given BID [facility] Protocol Saliva Substitute 5 ml 08/28/18 13:00 09/04/18 08:59 First Magic Mouthwash PO 5 ml TID [facility] Administration Sitagliptin Phosphate 25 mg 08/22/18 09:00 09/03/18 08:52 Januvia PO 25 mg DAILY [facility] Administration Tiotropium Bangs 18 mcg 08/22/18 09:00 09/04/18 09:02 Spiriva INH Not Given DAILY [facility] - Patient Studies Lab Studies: Lab Studies 09/04/18 09/04/18 09/04/18 Range/Units 06:08 04:25 04:25 WBC 7.9 (4.8-10.8) K/uL RBC 2.73 L (3.80-5.20) Mil/uL Hgb 9.4 L (12.0-16.0) g/dL Hct 28.2 L (34.0-47.0) % MCV 103.2 H D (81.0-99.0) fl MCH 34.6 H (27.0-31.0) pg MCHC 33.5 (33.0-37.0) g/dL RDW 21.2 H (11.5-14.5) % Plt Count 28 L* (130-400) K/uL pCO2 (35-45) mm/Hg pO2 (80-100) mm/Hg HCO3 (21-28) mmol/L ABG pH (7.35-7.45) ABG Total CO2 (22-28) mmol/L ABG O2 Saturation (95-98) % ABG O2 Content (15-23) ML/dL ABG Base Excess (-2.0-3.0) mmol/L ABG Hemoglobin (11.7-17.4) g/dL ABG Carboxyhemoglobin (0.5-1.5) % POC ABG HHb (Measured) (0.0-5.0) % ABG Methemoglobin (0.0-3.0) % ABG O2 Capacity (16-24) mL/dL Andres Test VBG pH (7.32-7.43) VBG pCO2 (40-60) mmHg VBG HCO3 mmol/L VBG Total CO2 (22-28) mmol/L VBG O2 Sat (Calc) (40-65) % VBG Base Excess (0.0-2.0) mmol/L VBG Potassium (3.6-5.2) mmol/L A-a O2 Difference mm/Hg Hgb O2 Saturation (95.0-98.0) % Sodium 135 (132-148) mmol/L Chloride 101 (98-107) mmol/L Glucose (65-105) mg/dL Lactate (0.7-2.1) mmol/L Vent Mode Mechanical Rate FiO2 % Tidal Volume PEEP Potassium 4.2 (3.6-5.0) MMOL/L Carbon Dioxide 24 (22-30) mmol/L Anion Gap 14 (10-20) BUN 41 H (7-17) mg/dl Creatinine 2.2 H (0.7-1.2) mg/dl Est GFR ( Amer) 26 Est GFR (Non-Af Amer) 21 POC Glucose (mg/dL) 215 H (65-110) mg/dL Random Glucose 201 H (65-105) mg/dL Calcium 8.9 (8.4-10.2) mg/dL Phosphorus (2.5-4.5) mg/dl Magnesium (1.6-2.3) MG/DL Total Bilirubin 1.5 H (0.2-1.3) mg/dl AST 45 H (14-36) U/L ALT 60 H (9-52) U/L Alkaline Phosphatase 97 (38-126) U/L Troponin I (0.00-0.120) ng/mL Total Protein 5.5 L (6.3-8.2) G/DL Albumin 2.4 L (3.5-5.0) g/dL Globulin 3.1 (2.2-3.9) gm/dL Albumin/Globulin Ratio 0.8 L (1.0-2.1) Venous Blood Potassium (3.6-5.2) mmol/L 09/04/18 09/03/18 09/03/18 Range/Units 04:18 20:42 18:38 WBC (4.8-10.8) K/uL RBC (3.80-5.20) Mil/uL Hgb (12.0-16.0) g/dL Hct (34.0-47.0) % MCV (81.0-99.0) fl MCH (27.0-31.0) pg MCHC (33.0-37.0) g/dL RDW (11.5-14.5) % Plt Count (130-400) K/uL pCO2 26 L (35-45) mm/Hg pO2 400 H (80-100) mm/Hg HCO3 25.7 (21-28) mmol/L ABG pH 7.55 H (7.35-7.45) ABG Total CO2 23.5 (22-28) mmol/L ABG O2 Saturation 100.9 H (95-98) % ABG O2 Content 14.2 L (15-23) ML/dL ABG Base Excess 0.9 (-2.0-3.0) mmol/L ABG Hemoglobin 9.5 L (11.7-17.4) g/dL ABG Carboxyhemoglobin 1.7 H (0.5-1.5) % POC ABG HHb (Measured) -0.9 L (0.0-5.0) % ABG Methemoglobin 1.2 (0.0-3.0) % ABG O2 Capacity 14.1 L (16-24) mL/dL Andres Test Yes VBG pH (7.32-7.43) VBG pCO2 (40-60) mmHg VBG HCO3 mmol/L VBG Total CO2 (22-28) mmol/L VBG O2 Sat (Calc) (40-65) % VBG Base Excess (0.0-2.0) mmol/L VBG Potassium (3.6-5.2) mmol/L A-a O2 Difference 281.0 mm/Hg Hgb O2 Saturation 98.0 (95.0-98.0) % Sodium 135 (132-148) mmol/L Chloride 100 (98-107) mmol/L Glucose (65-105) mg/dL Lactate (0.7-2.1) mmol/L Vent Mode A/c Mechanical Rate 12 FiO2 100.0 % Tidal Volume 400 PEEP 5 Potassium 4.3 (3.6-5.0) MMOL/L Carbon Dioxide 26 (22-30) mmol/L Anion Gap 13 (10-20) BUN 35 H (7-17) mg/dl Creatinine 1.9 H (0.7-1.2) mg/dl Est GFR ( Amer) 31 Est GFR (Non-Af Amer) 25 POC Glucose (mg/dL) 231 H (65-110) mg/dL Random Glucose 235 H (65-105) mg/dL Calcium 8.8 (8.4-10.2) mg/dL Phosphorus 3.9 (2.5-4.5) mg/dl Magnesium 1.7 (1.6-2.3) MG/DL Total Bilirubin 1.2 (0.2-1.3) mg/dl AST 46 H (14-36) U/L ALT 60 H (9-52) U/L Alkaline Phosphatase 87 (38-126) U/L Troponin I 0.0690 (0.00-0.120) ng/mL Total Protein 5.4 L (6.3-8.2) G/DL Albumin 2.2 L (3.5-5.0) g/dL Globulin 3.2 (2.2-3.9) gm/dL Albumin/Globulin Ratio 0.7 L (1.0-2.1) Venous Blood Potassium (3.6-5.2) mmol/L 09/03/18 09/03/18 09/03/18 Range/Units 18:38 18:28 17:35 WBC 6.6 (4.8-10.8) K/uL RBC 2.77 L (3.80-5.20) Mil/uL Hgb 9.6 L (12.0-16.0) g/dL Hct 29.5 L (34.0-47.0) % MCV 106.2 H D (81.0-99.0) fl MCH 34.8 H (27.0-31.0) pg MCHC 32.7 L (33.0-37.0) g/dL RDW 20.3 H (11.5-14.5) % Plt Count 32 L (130-400) K/uL pCO2 48 H (35-45) mm/Hg pO2 31 96 (80-100) mm/Hg HCO3 23.7 (21-28) mmol/L ABG pH 7.32 L (7.35-7.45) ABG Total CO2 26.2 (22-28) mmol/L ABG O2 Saturation 99.8 H (95-98) % ABG O2 Content 13.8 L (15-23) ML/dL ABG Base Excess -1.6 (-2.0-3.0) mmol/L ABG Hemoglobin 10.1 L (11.7-17.4) g/dL ABG Carboxyhemoglobin 2.4 H (0.5-1.5) % POC ABG HHb (Measured) 0.2 (0.0-5.0) % ABG Methemoglobin 0.9 (0.0-3.0) % ABG O2 Capacity 13.8 L (16-24) mL/dL Andres Test Yes VBG pH 7.38 (7.32-7.43) VBG pCO2 44 (40-60) mmHg VBG HCO3 24.2 mmol/L VBG Total CO2 27.4 (22-28) mmol/L VBG O2 Sat (Calc) 64.2 (40-65) % VBG Base Excess 0.5 (0.0-2.0) mmol/L VBG Potassium 4.3 (3.6-5.2) mmol/L A-a O2 Difference 557.0 mm/Hg Hgb O2 Saturation 96.5 (95.0-98.0) % Sodium 135.0 (132-148) mmol/L Chloride 106.0 (98-107) mmol/L Glucose 243 H (65-105) mg/dL Lactate 2.6 H (0.7-2.1) mmol/L Vent Mode A/c Mechanical Rate 12 FiO2 21.0 100.0 % Tidal Volume 400 PEEP 5 Potassium (3.6-5.0) MMOL/L Carbon Dioxide (22-30) mmol/L Anion Gap (10-20) BUN (7-17) mg/dl Creatinine (0.7-1.2) mg/dl Est GFR ( Amer) Est GFR (Non-Af Amer) POC Glucose (mg/dL) (65-110) mg/dL Random Glucose (65-105) mg/dL Calcium (8.4-10.2) mg/dL Phosphorus (2.5-4.5) mg/dl Magnesium (1.6-2.3) MG/DL Total Bilirubin (0.2-1.3) mg/dl AST (14-36) U/L ALT (9-52) U/L Alkaline Phosphatase (38-126) U/L Troponin I (0.00-0.120) ng/mL Total Protein (6.3-8.2) G/DL Albumin (3.5-5.0) g/dL Globulin (2.2-3.9) gm/dL Albumin/Globulin Ratio (1.0-2.1) Venous Blood Potassium 4.3 (3.6-5.2) mmol/L 09/03/18 09/03/18 Range/Units 16:39 11:45 WBC (4.8-10.8) K/uL RBC (3.80-5.20) Mil/uL Hgb (12.0-16.0) g/dL Hct (34.0-47.0) % MCV (81.0-99.0) fl MCH (27.0-31.0) pg MCHC (33.0-37.0) g/dL RDW (11.5-14.5) % Plt Count (130-400) K/uL pCO2 (35-45) mm/Hg pO2 (80-100) mm/Hg HCO3 (21-28) mmol/L ABG pH (7.35-7.45) ABG Total CO2 (22-28) mmol/L ABG O2 Saturation (95-98) % ABG O2 Content (15-23) ML/dL ABG Base Excess (-2.0-3.0) mmol/L ABG Hemoglobin (11.7-17.4) g/dL ABG Carboxyhemoglobin (0.5-1.5) % POC ABG HHb (Measured) (0.0-5.0) % ABG Methemoglobin (0.0-3.0) % ABG O2 Capacity (16-24) mL/dL Andres Test VBG pH (7.32-7.43) VBG pCO2 (40-60) mmHg VBG HCO3 mmol/L VBG Total CO2 (22-28) mmol/L VBG O2 Sat (Calc) (40-65) % VBG Base Excess (0.0-2.0) mmol/L VBG Potassium (3.6-5.2) mmol/L A-a O2 Difference mm/Hg Hgb O2 Saturation (95.0-98.0) % Sodium (132-148) mmol/L Chloride (98-107) mmol/L Glucose (65-105) mg/dL Lactate (0.7-2.1) mmol/L Vent Mode Mechanical Rate FiO2 % Tidal Volume PEEP Potassium (3.6-5.0) MMOL/L Carbon Dioxide (22-30) mmol/L Anion Gap (10-20) BUN (7-17) mg/dl Creatinine (0.7-1.2) mg/dl Est GFR ( Amer) Est GFR (Non-Af Amer) POC Glucose (mg/dL) 227 H 253 H (65-110) mg/dL Random Glucose (65-105) mg/dL Calcium (8.4-10.2) mg/dL Phosphorus (2.5-4.5) mg/dl Magnesium (1.6-2.3) MG/DL Total Bilirubin (0.2-1.3) mg/dl AST (14-36) U/L ALT (9-52) U/L Alkaline Phosphatase (38-126) U/L Troponin I (0.00-0.120) ng/mL Total Protein (6.3-8.2) G/DL Albumin (3.5-5.0) g/dL Globulin (2.2-3.9) gm/dL Albumin/Globulin Ratio (1.0-2.1) Venous Blood Potassium (3.6-5.2) mmol/L Laboratory Results - last 24 hr 09/03/18 09/03/18 09/03/18 11:45 16:39 17:35 WBC RBC Hgb Hct MCV MCH MCHC RDW Plt Count pCO2 48 H pO2 96 HCO3 23.7 ABG pH 7.32 L ABG Total CO2 26.2 ABG O2 Saturation 99.8 H ABG O2 Content 13.8 L ABG Base Excess -1.6 ABG Hemoglobin 10.1 L ABG Carboxyhemoglobin 2.4 H POC ABG HHb (Measured) 0.2 ABG Methemoglobin 0.9 ABG O2 Capacity 13.8 L Andres Test Yes VBG pH VBG pCO2 VBG HCO3 VBG Total CO2 VBG O2 Sat (Calc) VBG Base Excess VBG Potassium A-a O2 Difference 557.0 Hgb O2 Saturation 96.5 Sodium Chloride Glucose Lactate Vent Mode A/c Mechanical Rate 12 FiO2 100.0 Tidal Volume 400 PEEP 5 Potassium Carbon Dioxide Anion Gap BUN Creatinine Est GFR ( Amer) Est GFR (Non-Af Amer) POC Glucose (mg/dL) 253 H 227 H Random Glucose Calcium Phosphorus Magnesium Total Bilirubin AST ALT Alkaline Phosphatase Troponin I Total Protein Albumin Globulin Albumin/Globulin Ratio Venous Blood Potassium 09/03/18 09/03/18 09/03/18 18:28 18:38 18:38 WBC 6.6 RBC 2.77 L Hgb 9.6 L Hct 29.5 L MCV 106.2 H D MCH 34.8 H MCHC 32.7 L RDW 20.3 H Plt Count 32 L pCO2 pO2 31 HCO3 ABG pH ABG Total CO2 ABG O2 Saturation ABG O2 Content ABG Base Excess ABG Hemoglobin ABG Carboxyhemoglobin POC ABG HHb (Measured) ABG Methemoglobin ABG O2 Capacity Andres Test VBG pH 7.38 VBG pCO2 44 VBG HCO3 24.2 VBG Total CO2 27.4 VBG O2 Sat (Calc) 64.2 VBG Base Excess 0.5 VBG Potassium 4.3 A-a O2 Difference Hgb O2 Saturation Sodium 135.0 135 Chloride 106.0 100 Glucose 243 H Lactate 2.6 H Vent Mode Mechanical Rate FiO2 21.0 Tidal Volume PEEP Potassium 4.3 Carbon Dioxide 26 Anion Gap 13 BUN 35 H Creatinine 1.9 H Est GFR ( Amer) 31 Est GFR (Non-Af Amer) 25 POC Glucose (mg/dL) Random Glucose 235 H Calcium 8.8 Phosphorus 3.9 Magnesium 1.7 Total Bilirubin 1.2 AST 46 H ALT 60 H Alkaline Phosphatase 87 Troponin I 0.0690 Total Protein 5.4 L Albumin 2.2 L Globulin 3.2 Albumin/Globulin Ratio 0.7 L Venous Blood Potassium 4.3 09/03/18 09/04/18 09/04/18 20:42 04:18 04:25 WBC 7.9 RBC 2.73 L Hgb 9.4 L Hct 28.2 L MCV 103.2 H D MCH 34.6 H MCHC 33.5 RDW 21.2 H Plt Count 28 L* pCO2 26 L pO2 400 H HCO3 25.7 ABG pH 7.55 H ABG Total CO2 23.5 ABG O2 Saturation 100.9 H ABG O2 Content 14.2 L ABG Base Excess 0.9 ABG Hemoglobin 9.5 L ABG Carboxyhemoglobin 1.7 H POC ABG HHb (Measured) -0.9 L ABG Methemoglobin 1.2 ABG O2 Capacity 14.1 L Andres Test Yes VBG pH VBG pCO2 VBG HCO3 VBG Total CO2 VBG O2 Sat (Calc) VBG Base Excess VBG Potassium A-a O2 Difference 281.0 Hgb O2 Saturation 98.0 Sodium Chloride Glucose Lactate Vent Mode A/c Mechanical Rate 12 FiO2 100.0 Tidal Volume 400 PEEP 5 Potassium Carbon Dioxide Anion Gap BUN Creatinine Est GFR ( Amer) Est GFR (Non-Af Amer) POC Glucose (mg/dL) 231 H Random Glucose Calcium Phosphorus Magnesium Total Bilirubin AST ALT Alkaline Phosphatase Troponin I Total Protein Albumin Globulin Albumin/Globulin Ratio Venous Blood Potassium 09/04/18 09/04/18 04:25 06:08 WBC RBC Hgb Hct MCV MCH MCHC RDW Plt Count pCO2 pO2 HCO3 ABG pH ABG Total CO2 ABG O2 Saturation ABG O2 Content ABG Base Excess ABG Hemoglobin ABG Carboxyhemoglobin POC ABG HHb (Measured) ABG Methemoglobin ABG O2 Capacity Andres Test VBG pH VBG pCO2 VBG HCO3 VBG Total CO2 VBG O2 Sat (Calc) VBG Base Excess VBG Potassium A-a O2 Difference Hgb O2 Saturation Sodium 135 Chloride 101 Glucose Lactate Vent Mode Mechanical Rate FiO2 Tidal Volume PEEP Potassium 4.2 Carbon Dioxide 24 Anion Gap 14 BUN 41 H Creatinine 2.2 H Est GFR ( Amer) 26 Est GFR (Non-Af Amer) 21 POC Glucose (mg/dL) 215 H Random Glucose 201 H Calcium 8.9 Phosphorus Magnesium Total Bilirubin 1.5 H AST 45 H ALT 60 H Alkaline Phosphatase 97 Troponin I Total Protein 5.5 L Albumin 2.4 L Globulin 3.1 Albumin/Globulin Ratio 0.8 L Venous Blood Potassium Radiology Impressions: Radiology Impressions Chest X-Ray 09/03/18 16:47 IMPRESSION: No adverse findings following endotracheal tube placement.. Stable satisfactory position of nasogastric tube Otherwise, no interval change. Chest X-Ray 09/04/18 09:00 IMPRESSION: Interval nasogastric tube deployment entering into the abdomen with tip off the image. Normal change in remaining tubes and catheters. Prominent cardiac silhouette remains without pulmonary vascular congestion. Mild right pleural effusion unchanged. Limited left basilar airspace disease reflecting atelectasis most likely. Various hardware obscures the chest. Please see discussion above. Fingerstick Blood Sugar Results: 215 Critical Care Progress Note - Ventilator Checklist Head of Bed 30 Degrees: Yes Daily Sedation Vacation: Yes Daily Assessment of Readiness to Wean: Yes Daily Spontaneous Breathing Trial: Yes PUD Prophalyxis: Yes DVT Prophylaxis: Yes Oral Care with Chlorhexidine Gluconate {CHG}: Yes - Extremities/Vascular Does the Patient have a Central Venous Catheter?: Yes Does the Patient need a Central Venous Catheter?: Yes Does the Patient have a Crane Catheter?: Yes Does the Patient need a Crane Catheter?: Yes - Nutrition Nutrition: Nutrition Category Date Time Status Dysphagia/Modified Consistency Diet [DIET] Diets 08/30/18 Dinner Active Assessment/Plan (1) Respiratory failure Current Visit: Yes Status: Acute Priority: High Comment: Multifactorial from acute CHF, Pneumonia with Pleural effusion improving, Successfully extubated today, Breathing unlabored Saturation 98% on 40% VM (2) HCAP (healthcare-associated pneumonia) Current Visit: Yes Status: Acute Priority: High Comment: Afebrile, Off Antibiotics (3) Pleural effusion Current Visit: Yes Status: Acute Priority: High Comment: 08/15, she underwent US guided right thoracentesis for Right pleural effusion 1.45 liters of straw colored fluid Removed 08/21, she underwent US guided right thoracentesis for Right pleural effusion 1200 cc of gonzales colored fluid Removed (4) Acute diastolic heart failure due to valvular disease Current Visit: Yes Status: Acute Priority: High Comment: Continue gentle diuresis, medical management as per cardiology (5) Acute renal failure Current Visit: Yes Status: Acute Priority: High (6) Thrombocytopenia Current Visit: Yes Status: Chronic Priority: High Comment: This morning labs revealed Platelet drop to 28K, no active bleeding, discussed with hematology, will transfuse for plat <20K. (7) COPD (chronic obstructive pulmonary disease) Current Visit: No Status: Chronic Priority: Medium Comment: Spiriva 18 mcg INH DAILY PRN Albuterol
[2018-09-04 11:56] LABS: ABG ALLEN TEST YES; ARTERIAL BLOOD GAS HCO3 24.5 mmol/L (21-28); ARTERIAL BLOOD GAS O2 SAT 100.3 % (95-98); ARTERIAL BLOOD GAS PCO2 32 mm/Hg (35-45); ARTERIAL BLOOD GAS PH 7.46 (7.35-7.45); ARTERIAL BLOOD GAS PO2 113 mm/Hg (80-100); ARTERIAL BLOOD GAS TCO2 23.8 mmol/L (22-28)
--- NOTE | 2018-09-04 18:21 | CP.PCM.PN ---
Subjective - Date & Time of Evaluation Date of Evaluation: 09/04/18 Time of Evaluation: 18:10 - Subjective Subjective: patient seen/examined. events noted. discussed with daughter at the bedside. Objective - Vital Signs/Intake and Output Vital Signs (last 24 hours): Temp Pulse Resp BP Pulse Ox 97.4 F L 69 21 94/46 L 100 09/04/18 16:00 09/04/18 17:03 09/04/18 16:00 09/04/18 17:34 09/04/18 16:00 Intake and Output: 09/04/18 09/04/18 06:59 18:59 Intake Total 262 102 Output Total 1 Balance 261 102 - Medications Medications: Current Medications Acetaminophen (Tylenol 650mg/20.3ml Solution Ud) 650 mg PO Q4 PRN PRN Reason: Pain, moderate (4-7) Anastrozole (Arimidex 1 Mg Tab) 1 mg PO DAILY [facility] Last Admin: 08/22/18 09:00 Dose: Not Given Benzocaine/Menthol (Cepacol Sore Throat) 1 malu PO Q2 PRN PRN Reason: Sore Throat Calcium Acetate (Phoslo) 667 mg PO DAILY [facility] Last Admin: 08/22/18 10:00 Dose: Not Given Carvedilol (Coreg) 6.25 mg PO Q12 [facility] Last Admin: 09/04/18 08:56 Dose: 6.25 mg Dextrose (Dextrose 50% Inj) 0 ml IV STAT PRN; Protocol PRN Reason: Hypoglycemia Protocol Dextrose (Glutose 15) 0 gm PO ONCE PRN; Protocol PRN Reason: Hypoglycemia Protocol Diltiazem HCl (Cardizem) 30 mg PO QID [facility] Last Admin: 09/04/18 17:03 Dose: Not Given Dimethicone (Proshield Plus Skin Protectant) 1 applic TOP Q8 [facility] Last Admin: 09/04/18 17:34 Dose: 1 applic Epoetin Theron (Procrit) 10,000 unit IV MWF [facility] Last Admin: 09/03/18 15:22 Dose: 10,000 unit Ergocalciferol (Drisdol 50,000 Intl Units Cap) 1 cap PO QWK [facility] Escitalopram Oxalate (Lexapro) 20 mg PO DAILY [facility] Famotidine (Pepcid) 20 mg PO BID [facility] Last Admin: 09/04/18 17:08 Dose: Not Given Furosemide (Lasix) 40 mg IVP BID [facility] Last Admin: 09/04/18 17:34 Dose: Not Given Glucagon (Glucagen Diagnostic Kit) 0 mg IM STAT PRN; Protocol PRN Reason: Hypoglycemia Protocol Guaifenesin/Dextromethorphan (Robitussin Dm) 10 ml PO Q6 PRN PRN Reason: Cough Last Admin: 08/23/18 10:05 Dose: 10 ml Sodium Chloride (Sodium Chloride 0.9%) 250 mls @ 0 mls/hr IV .Q0M [facility] Stop: 09/04/18 18:27 Insulin Detemir (Levemir) 10 units SC HS [facility] Insulin Human Lispro (Humalog) 10 units SC TIDAC [facility] Last Admin: 08/22/18 12:31 Dose: Not Given Insulin Human Regular (Humulin R) 0 units SC ACCU-CHECK [facility]; Protocol Last Admin: 09/04/18 17:04 Dose: Not Given Lactulose (Enulose) 20 gm PO TID [facility] Last Admin: 08/25/18 08:24 Dose: 20 gm Lidocaine (Lidoderm) 1 ea TD DAILY [facility] Last Admin: 09/04/18 09:00 Dose: 1 ea Lidocaine HCl (Lidocaine 2% Viscous) 15 ml PO Q8H PRN PRN Reason: dysphagia Last Admin: 08/29/18 18:50 Dose: 15 ml Losartan Potassium (Cozaar) 50 mg PO DAILY [facility] Metolazone (Zaroxolyn) 2.5 mg PO DAILY [facility] Ondansetron HCl (Zofran Inj) 4 mg IVP Q6 PRN PRN Reason: Nausea/Vomiting Last Admin: 09/01/18 16:45 Dose: 4 mg Phenol/Menthol (Phenaseptic 1.4% Throat [place]) 1 spry MT Q2 PRN PRN Reason: Pain, Mild (1-3) Last Admin: 08/27/18 20:32 Dose: 1 spray Rifaximin (Xifaxan) 550 mg PO BID [facility]; Protocol Last Admin: 08/22/18 09:07 Dose: Not Given Saliva Substitute (First Magic Mouthwash) 5 ml PO TID [facility] Last Admin: 09/04/18 17:34 Dose: 5 ml Sitagliptin Phosphate (Januvia) 25 mg PO DAILY [facility] Last Admin: 01/28/19 08:52 Dose: 25 mg Tiotropium [place] (Spiriva) 18 mcg INH DAILY [facility] Last Admin: 09/04/18 09:02 Dose: Not Given - Labs Labs: 09/04/18 04:25 09/04/18 04:25 PT 15.6 Seconds (9.8-13.1) H 09/02/18 04:41 INR 1.4 09/02/18 04:41 APTT 32.2 Seconds (25.6-37.1) 08/24/18 06:45 - Constitutional Appears: Chronically Ill - Head Exam Head Exam: NORMAL INSPECTION - Eye Exam Eye Exam: Normal appearance - ENT Exam ENT Exam: Mucous Membranes Moist - Neck Exam Neck Exam: Full ROM - Respiratory Exam Respiratory Exam: Decreased Breath Sounds - Cardiovascular Exam Cardiovascular Exam: Irregular Rhythm - Rectal Exam Rectal Exam: Deferred - Extremities Exam Extremities Exam: absent: Pedal Edema - Back Exam Back Exam: NORMAL INSPECTION - Neurological Exam Neurological Exam: Alert - Psychiatric Exam Psychiatric exam: Normal Affect - Skin Skin Exam: Normal Color Assessment and Plan (1) Acute diastolic heart failure due to valvular disease Assessment & Plan: s/p cardiac arrest (possible aspiration) now extbated. continue conservative therapy. discussed cardiac management in detail with the daughter. Status: Acute (2) Atrial fibrillation Assessment & Plan: controlled Status: Acute (3) Mitral valve regurgitation Status: Chronic
--- NOTE | 2018-09-04 18:26 | CP.PCM.PN ---
Subjective - Date & Time of Evaluation Date of Evaluation: 09/03/18 Time of Evaluation: 11:00 - Subjective Subjective: patient seen and examined at bedside. doing well, with PT at this time due for HD today no complaints of pain/sob. spoke with family at bedside. Objective - Vital Signs/Intake and Output Vital Signs (last 24 hours): Temp Pulse Resp BP Pulse Ox 97.4 F L 69 21 94/46 L 100 09/04/18 16:00 09/04/18 17:03 09/04/18 16:00 09/04/18 17:34 09/04/18 16:00 Intake and Output: 09/04/18 09/04/18 06:59 18:59 Intake Total 262 102 Output Total 1 Balance 261 102 - Medications Medications: Current Medications Acetaminophen (Tylenol 650mg/20.3ml Solution Ud) 650 mg PO Q4 PRN PRN Reason: Pain, moderate (4-7) Anastrozole (Arimidex 1 Mg Tab) 1 mg PO DAILY [facility] Last Admin: 08/22/18 09:00 Dose: Not Given Benzocaine/Menthol (Cepacol Sore Throat) 1 malu PO Q2 PRN PRN Reason: Sore Throat Calcium Acetate (Phoslo) 667 mg PO DAILY [facility] Last Admin: 08/22/18 10:00 Dose: Not Given Carvedilol (Coreg) 6.25 mg PO Q12 [facility] Last Admin: 09/04/18 08:56 Dose: 6.25 mg Dextrose (Dextrose 50% Inj) 0 ml IV STAT PRN; Protocol PRN Reason: Hypoglycemia Protocol Dextrose (Glutose 15) 0 gm PO ONCE PRN; Protocol PRN Reason: Hypoglycemia Protocol Diltiazem HCl (Cardizem) 30 mg PO QID [facility] Last Admin: 09/04/18 17:03 Dose: Not Given Dimethicone (Proshield Plus Skin Protectant) 1 applic TOP Q8 [facility] Last Admin: 09/04/18 17:34 Dose: 1 applic Epoetin Theron (Procrit) 10,000 unit IV MWF [facility] Last Admin: 09/03/18 15:22 Dose: 10,000 unit Ergocalciferol (Drisdol 50,000 Intl Units Cap) 1 cap PO QWK [facility] Escitalopram Oxalate (Lexapro) 20 mg PO DAILY [facility] Famotidine (Pepcid) 20 mg PO BID [facility] Last Admin: 09/04/18 17:08 Dose: Not Given Furosemide (Lasix) 40 mg IVP BID [facility] Last Admin: 09/04/18 17:34 Dose: Not Given Glucagon (Glucagen Diagnostic Kit) 0 mg IM STAT PRN; Protocol PRN Reason: Hypoglycemia Protocol Guaifenesin/Dextromethorphan (Robitussin Dm) 10 ml PO Q6 PRN PRN Reason: Cough Last Admin: 08/23/18 10:05 Dose: 10 ml Sodium Chloride (Sodium Chloride 0.9%) 250 mls @ 0 mls/hr IV .Q0M [facility] Stop: 09/04/18 18:27 Insulin Detemir (Levemir) 10 units SC HS [facility] Insulin Human Lispro (Humalog) 10 units SC TIDAC [facility] Last Admin: 08/22/18 12:31 Dose: Not Given Insulin Human Regular (Humulin R) 0 units SC ACCU-CHECK [facility]; Protocol Last Admin: 09/04/18 17:04 Dose: Not Given Lactulose (Enulose) 20 gm PO TID [facility] Last Admin: 08/25/18 08:24 Dose: 20 gm Lidocaine (Lidoderm) 1 ea TD DAILY [facility] Last Admin: 09/04/18 09:00 Dose: 1 ea Lidocaine HCl (Lidocaine 2% Viscous) 15 ml PO Q8H PRN PRN Reason: dysphagia Last Admin: 08/29/18 18:50 Dose: 15 ml Losartan Potassium (Cozaar) 50 mg PO DAILY [facility] Metolazone (Zaroxolyn) 2.5 mg PO DAILY [facility] Ondansetron HCl (Zofran Inj) 4 mg IVP Q6 PRN PRN Reason: Nausea/Vomiting Last Admin: 09/01/18 16:45 Dose: 4 mg Phenol/Menthol (Phenaseptic 1.4% Throat [place]) 1 spry MT Q2 PRN PRN Reason: Pain, Mild (1-3) Last Admin: 08/27/18 20:32 Dose: 1 spray Rifaximin (Xifaxan) 550 mg PO BID [facility]; Protocol Last Admin: 08/22/18 09:07 Dose: Not Given Saliva Substitute (First Magic Mouthwash) 5 ml PO TID [facility] Last Admin: 09/04/18 17:34 Dose: 5 ml Sitagliptin Phosphate (Januvia) 25 mg PO DAILY [facility] Last Admin: 09/03/18 08:52 Dose: 25 mg Tiotropium [place] (Spiriva) 18 mcg INH DAILY [facility] Last Admin: 09/04/18 09:02 Dose: Not Given - Labs Labs: 09/04/18 04:25 09/04/18 04:25 PT 15.6 Seconds (9.8-13.1) H 09/02/18 04:41 INR 1.4 09/02/18 04:41 APTT 32.2 Seconds (25.6-37.1) 08/24/18 06:45 - Constitutional Appears: Chronically Ill - Head Exam Head Exam: NORMAL INSPECTION - Eye Exam Eye Exam: Normal appearance - Respiratory Exam Respiratory Exam: NORMAL BREATHING PATTERN - Cardiovascular Exam Cardiovascular Exam: +S1, +S2 - GI/Abdominal Exam GI & Abdominal Exam: Soft - Neurological Exam Neurological Exam: Alert, Awake - Psychiatric Exam Psychiatric exam: Normal Affect, Normal Mood - Skin Skin Exam: Normal Color, Warm Assessment and Plan (1) Acute renal failure Status: Acute (2) CHF (congestive heart failure) Status: Acute (3) Pleural effusion Status: Acute (4) Thrombocytopenia Status: Chronic (5) Anemia Status: Acute (6) Physical debility Status: Acute (7) Cirrhosis Status: Chronic (8) DM2 (diabetes mellitus, type 2) Status: Chronic - Assessment and Plan (Free Text) Assessment: available diagnostic data reviewed cont tx cont meds consultants input appreciated for HD today rest of plan as ordered
--- NOTE | 2018-09-04 20:54 | CP.PCM.PN ---
Subjective - Date & Time of Evaluation Date of Evaluation: 09/04/18 Time of Evaluation: 18:00 - Subjective Subjective: Awake, family at bedside. Objective - Vital Signs/Intake and Output Vital Signs (last 24 hours): Temp Pulse Resp BP Pulse Ox 97.1 F L 75 21 97/50 L 100 09/04/18 20:00 09/04/18 20:08 09/04/18 20:00 09/04/18 20:08 09/04/18 20:00 Intake and Output: 09/04/18 09/05/18 18:59 06:59 Intake Total 122 0 Output Total 100 0 Balance 22 0 - Medications Medications: Current Medications Acetaminophen (Tylenol 650mg/20.3ml Solution Ud) 650 mg PO Q4 PRN PRN Reason: Pain, moderate (4-7) Anastrozole (Arimidex 1 Mg Tab) 1 mg PO DAILY [facility] Last Admin: 08/22/18 09:00 Dose: Not Given Benzocaine/Menthol (Cepacol Sore Throat) 1 malu PO Q2 PRN PRN Reason: Sore Throat Calcium Acetate (Phoslo) 667 mg PO DAILY [facility] Last Admin: 08/22/18 10:00 Dose: Not Given Carvedilol (Coreg) 6.25 mg PO Q12 [facility] Last Admin: 09/04/18 20:08 Dose: Not Given Dextrose (Dextrose 50% Inj) 0 ml IV STAT PRN; Protocol PRN Reason: Hypoglycemia Protocol Dextrose (Glutose 15) 0 gm PO ONCE PRN; Protocol PRN Reason: Hypoglycemia Protocol Diltiazem HCl (Cardizem) 30 mg PO QID [facility] Last Admin: 09/04/18 17:03 Dose: Not Given Dimethicone (Proshield Plus Skin Protectant) 1 applic TOP Q8 [facility] Last Admin: 09/04/18 17:34 Dose: 1 applic Epoetin Theron (Procrit) 10,000 unit IV MWF [facility] Last Admin: 09/03/18 15:22 Dose: 10,000 unit Ergocalciferol (Drisdol 50,000 Intl Units Cap) 1 cap PO QWK [facility] Escitalopram Oxalate (Lexapro) 20 mg PO DAILY [facility] Famotidine (Pepcid) 20 mg PO BID [facility] Last Admin: 09/04/18 17:08 Dose: Not Given Glucagon (Glucagen Diagnostic Kit) 0 mg IM STAT PRN; Protocol PRN Reason: Hypoglycemia Protocol Guaifenesin/Dextromethorphan (Robitussin Dm) 10 ml PO Q6 PRN PRN Reason: Cough Last Admin: 08/23/18 10:05 Dose: 10 ml Insulin Detemir (Levemir) 10 units SC HS [facility] Insulin Human Lispro (Humalog) 10 units SC TIDAC [facility] Last Admin: 08/22/18 12:31 Dose: Not Given Insulin Human Regular (Humulin R) 0 units SC ACCU-CHECK [facility]; Protocol Last Admin: 09/04/18 17:04 Dose: Not Given Lactulose (Enulose) 20 gm PO TID [facility] Last Admin: 08/25/18 08:24 Dose: 20 gm Lidocaine (Lidoderm) 1 ea TD DAILY [facility] Last Admin: 09/04/18 09:00 Dose: 1 ea Lidocaine HCl (Lidocaine 2% Viscous) 15 ml PO Q8H PRN PRN Reason: dysphagia Last Admin: 08/29/18 18:50 Dose: 15 ml Losartan Potassium (Cozaar) 50 mg PO DAILY [facility] Metolazone (Zaroxolyn) 2.5 mg PO DAILY [facility] Ondansetron HCl (Zofran Inj) 4 mg IVP Q6 PRN PRN Reason: Nausea/Vomiting Last Admin: 09/01/18 16:45 Dose: 4 mg Phenol/Menthol (Phenaseptic 1.4% Throat [place]) 1 spry MT Q2 PRN PRN Reason: Pain, Mild (1-3) Last Admin: 08/27/18 20:32 Dose: 1 spray Rifaximin (Xifaxan) 550 mg PO BID [facility]; Protocol Last Admin: 08/22/18 09:07 Dose: Not Given Saliva Substitute (First Magic Mouthwash) 5 ml PO TID [facility] Last Admin: 09/04/18 17:34 Dose: 5 ml Sitagliptin Phosphate (Januvia) 25 mg PO DAILY [facility] Last Admin: 09/03/18 08:52 Dose: 25 mg Tiotropium [place] (Spiriva) 18 mcg INH DAILY [facility] Last Admin: 09/04/18 09:02 Dose: Not Given - Labs Labs: 09/04/18 04:25 09/04/18 04:25 PT 15.6 Seconds (9.8-13.1) H 09/02/18 04:41 INR 1.4 09/02/18 04:41 APTT 32.2 Seconds (25.6-37.1) 08/24/18 06:45 - Head Exam Head Exam: ATRAUMATIC - Eye Exam Eye Exam: Normal appearance - ENT Exam ENT Exam: Mucous Membranes Dry - Respiratory Exam Respiratory Exam: NORMAL BREATHING PATTERN - Cardiovascular Exam Cardiovascular Exam: +S1, +S2 - GI/Abdominal Exam GI & Abdominal Exam: Normal Bowel Sounds Assessment and Plan (1) Thrombocytopenia Assessment & Plan: liver cirrhosis exacerbated by acute illness transfuse if plt < 20,000 Status: Chronic (2) Anemia Assessment & Plan: chronic disease renal disease hematuria transfusion support PRN Status: Acute
[2018-09-04] MEDS ORDERED: Albuterol-Ipratrop 3 mg / 0.5 (3 ml) UD INH STA (21:06)
[2018-09-05] MEDS: Proshield Plus GEL TOP SCH ×3 (01:33→17:37)
--- NOTE | 2018-09-05 02:16 | PN ---
DATE: 09/04/2018 FOLLOWUP RENAL CONSULTATION LOCATION: The patient is located in room 435, bed 1. REQUESTED BY: Chintan Wayne MD REASON FOR FOLLOWUP: Acute renal failure, respiratory failure, on ventilator. SUBJECTIVE: Mrs. Sheth is an 82-year-old elderly female with a past medical history significant for hypertension, diabetes, pulmonary hypertension, tricuspid regurgitation, cirrhosis of the liver who was admitted on 08/04/2018 with cough, shortness of breath, and treated for pneumonia and hospital course is complicated by CHF, bilateral pleural effusion requiring multiple thoracentesis and acute renal failure requiring initiation of the renal replacement therapy. The patient went into cardiac arrest yesterday during dialysis, and the patient was apparently choking after eating food during dialysis and hemodialysis was discontinued after 40 minutes to 1 hour. The patient was hemodynamically stable throughout the dialysis section. The patient is on ventilator, on CPAP this morning, and the patient is awake and tried to follow commands, not in distress. PHYSICAL EXAMINATION: VITAL SIGNS: As follows: Blood pressure 104/56, pulse 84, respirations 24, saturation 100%, temperature 98.9. HEENT: On physical exam, pupils are normal and reactive to light and accommodation. Conjunctivae pink. Sclerae anicteric. Tongue is moist, on ventilator. Trachea is midline. LUNGS: Symmetric on both sides. Decreased breath sounds bilaterally, right more than the left. CARDIOVASCULAR SYSTEM: S1 and S2 audible. No murmur. No gallop. ABDOMEN: Normal in appearance. Soft, tympanitic. No guarding. No rigidity. No hepatosplenomegaly. CENTRAL NERVOUS SYSTEM: The patient is awake, on ventilator. Following commands. Moving all extremities. EXTREMITIES: No cyanosis. No clubbing. No edema. CURRENT MEDICATIONS: Include as follows: Cardizem 30 mg p.o. four times a day; Coreg 6.25 mg p.o. every 12 hours; Novolin R per sliding scale; Januvia on hold; Lasix 40 mg IV b.i.d started this morning; lidocaine patch; Pepcid 20 mg p.o. b.i.d.; Procrit 10,000 units three times a week; Zofran 4 mg IV every 6 hours p.r.n. LABORATORY DATA: Include as follows: As of 09/04/2018, WBC is 7.1, hemoglobin 9.4, hematocrit is 28.2, platelets 28. The pH is 7.55, pCO2 of 26, and pO2 of 400, bicarb is 25.7, saturation 100%, AC 12, FiO2 100%, tidal volume 400, PEEP of 5. Sodium 135, potassium 4.2, chloride 101, CO2 of 24, BUN 41, creatinine 2.2, glucose 201, calcium 8.9, total bilirubin 1.5, AST 45, ALT 60, alkaline phosphatase 97, total protein 5.5, albumin is 2.4, and repeat potassium level is 4.3, and repeat ABG, pH is 7.46, pCO2 of 32, and pO2 of 113, bicarb is 24.5, saturation of 100%, FiO2 of 40%, CPAP with pressure support 10, and PEEP of 5. RADIOGRAPHIC DATA: Chest x-ray as of 09/04/2018, interval nasogastric tube deployment entering into the abdomen . Normal change in remaining the tube and catheters. Prominent cardiac silhouette remains without pulmonary vascular congestion, mild right pleural effusion unchanged, limited left vessel, basilar airspace disease, reflecting atelectasis, most likely. ASSESSMENT AND PLAN: In summary, Mrs. Sheth is an 82-year-old elderly female with history of hypertension, diabetes, atrial fibrillation, pulmonary hypertension, tricuspid regurgitation, cirrhosis of the liver, acute renal failure, and hemodialysis three times a week, status post code during dialysis with choking and respiratory failure on ventilator. The patient is on continuous positive airway pressure this morning, awake, following commands. 1. Acute renal failure, continue vent support and continue hemodialysis as per the patient's family wish. 2. Cirrhosis of the liver. 3. Atrial fibrillation. 4. Bilateral pleural effusion with airspace disease. The patient's family agrees. We will consider hemodialysis on Monday. Otherwise, we will hold on dialysis at this time. We will add Lasix 40 mg intravenously twice daily if patient can tolerate. We will follow with you. Thank you for allowing me to participate in your patient's care. Overall, prognosis is poor. Lalita Stovall MD MTDD
[2018-09-05] MEDS: Albuterol-Ipratrop 3 mg / 0.5 (3 ml) UD INH PRN ×4 (02:17→23:11)
[2018-09-05 06:37] LABS: HEMOGLOBIN 9.1 g/dL (12.0-16.0); MEAN CELL VOLUME 104.3 fl (81.0-99.0); MEAN CORPUSCULAR HEMOGLOBIN 34.4 pg (27.0-31.0); RBC 2.63 Mil/uL (3.80-5.20); RED CELL DISTRIBUTION WIDTH 20.7 % (11.5-14.5); WHITE BLOOD COUNT 7.4 K/uL (4.8-10.8)
[2018-09-05 06:59] LABS: ALB/GLOB RATIO 0.8 (1.0-2.1); ALBUMIN 2.4 g/dL (3.5-5.0); CALCIUM 8.8 mg/dL (8.4-10.2)
[2018-09-05] MEDS: Insulin Regular 100 units/ml SC SCH ×4 (07:30→23:02)
[2018-09-05] MEDS: Lidocaine 5% Patch TD SCH (09:05)
[2018-09-05] MEDS: Mag&Al/Simet/Diphen/Lido 237 ML KIT PO SCH ×3 (09:10→17:35)
--- NOTE | 2018-09-05 10:20 | CP.PCM.PN ---
Subjective - Date & Time of Evaluation Date of Evaluation: 09/05/18 Time of Evaluation: 10:21 - Subjective Subjective: EXTUBATED COMFORTABLE AND MAINTAINING O2 SAT ADEQUATELY NO SOB/CHEST PAINS Objective - Vital Signs/Intake and Output Vital Signs (last 24 hours): Temp Pulse Resp BP Pulse Ox 97.3 F L 82 29 H 107/54 L 100 09/05/18 08:00 09/05/18 08:00 09/05/18 08:00 09/05/18 08:00 09/05/18 08:00 Intake and Output: 09/05/18 09/05/18 06:59 18:59 Intake Total 0 Output Total 40 Balance -40 - Medications Medications: Current Medications Acetaminophen (Tylenol 650mg/20.3ml Solution Ud) 650 mg PO Q4 PRN PRN Reason: Pain, moderate (4-7) Albuterol/Ipratropium (Duoneb 3 Mg/0.5 Mg (3 Ml) Ud) 3 ml INH RQ4 PRN PRN Reason: Shortness of Breath Last Admin: 09/05/18 06:19 Dose: 3 ml Anastrozole (Arimidex 1 Mg Tab) 1 mg PO DAILY [facility] Last Admin: 08/22/18 09:00 Dose: Not Given Benzocaine/Menthol (Cepacol Sore Throat) 1 malu PO Q2 PRN PRN Reason: Sore Throat Calcium Acetate (Phoslo) 667 mg PO DAILY [facility] Last Admin: 08/22/18 10:00 Dose: Not Given Carvedilol (Coreg) 6.25 mg PO Q12 [facility] Last Admin: 09/04/18 20:08 Dose: Not Given Dextrose (Dextrose 50% Inj) 0 ml IV STAT PRN; Protocol PRN Reason: Hypoglycemia Protocol Dextrose (Glutose 15) 0 gm PO ONCE PRN; Protocol PRN Reason: Hypoglycemia Protocol Diltiazem HCl (Cardizem) 30 mg PO QID [facility] Last Admin: 09/04/18 22:16 Dose: Not Given Dimethicone (Proshield Plus Skin Protectant) 1 applic TOP Q8 [facility] Last Admin: 09/05/18 01:33 Dose: 1 applic Epoetin Theron (Procrit) 10,000 unit IV MWF [facility] Last Admin: 09/03/18 15:22 Dose: 10,000 unit Ergocalciferol (Drisdol 50,000 Intl Units Cap) 1 cap PO QWK [facility] Escitalopram Oxalate (Lexapro) 20 mg PO DAILY [facility] Famotidine (Pepcid) 20 mg PO BID [facility] Last Admin: 09/04/18 17:08 Dose: Not Given Glucagon (Glucagen Diagnostic Kit) 0 mg IM STAT PRN; Protocol PRN Reason: Hypoglycemia Protocol Guaifenesin/Dextromethorphan (Robitussin Dm) 10 ml PO Q6 PRN PRN Reason: Cough Last Admin: 08/23/18 10:05 Dose: 10 ml Insulin Detemir (Levemir) 10 units SC HS [facility] Insulin Human Lispro (Humalog) 10 units SC TIDAC [facility] Last Admin: 08/22/18 12:31 Dose: Not Given Insulin Human Regular (Humulin R) 0 units SC ACCU-CHECK [facility]; Protocol Last Admin: 09/04/18 23:00 Dose: Not Given Lactulose (Enulose) 20 gm PO TID [facility] Last Admin: 08/25/18 08:24 Dose: 20 gm Lidocaine (Lidoderm) 1 ea TD DAILY [facility] Last Admin: 09/04/18 09:00 Dose: 1 ea Lidocaine HCl (Lidocaine 2% Viscous) 15 ml PO Q8H PRN PRN Reason: dysphagia Last Admin: 08/29/18 18:50 Dose: 15 ml Losartan Potassium (Cozaar) 50 mg PO DAILY [facility] Metolazone (Zaroxolyn) 2.5 mg PO DAILY [facility] Ondansetron HCl (Zofran Inj) 4 mg IVP Q6 PRN PRN Reason: Nausea/Vomiting Last Admin: 09/01/18 16:45 Dose: 4 mg Phenol/Menthol (Phenaseptic 1.4% Throat [place]) 1 spry MT Q2 PRN PRN Reason: Pain, Mild (1-3) Last Admin: 08/27/18 20:32 Dose: 1 spray Rifaximin (Xifaxan) 550 mg PO BID [facility]; Protocol Last Admin: 08/22/18 09:07 Dose: Not Given Saliva Substitute (First Magic Mouthwash) 5 ml PO TID [facility] Last Admin: 09/04/18 17:34 Dose: 5 ml Sitagliptin Phosphate (Januvia) 25 mg PO DAILY [facility] Last Admin: 09/03/18 08:52 Dose: 25 mg Tiotropium [place] (Spiriva) 18 mcg INH DAILY [facility] Last Admin: 09/04/18 09:02 Dose: Not Given - Labs Labs: 09/05/18 06:00 09/05/18 06:00 PT 15.6 Seconds (9.8-13.1) H 09/02/18 04:41 INR 1.4 09/02/18 04:41 APTT 32.2 Seconds (25.6-37.1) 08/24/18 06:45 - Constitutional Appears: Chronically Ill - Head Exam Head Exam: ATRAUMATIC, NORMAL INSPECTION, NORMOCEPHALIC - Eye Exam Eye Exam: EOMI, Normal appearance, PERRL Pupil Exam: NORMAL ACCOMODATION, PERRL - ENT Exam ENT Exam: Mucous Membranes Moist, Normal Exam - Neck Exam Neck Exam: Full ROM, Normal Inspection. absent: Lymphadenopathy - Respiratory Exam Respiratory Exam: Decreased Breath Sounds, Prolonged Expiratory Phase, Rales, NORMAL BREATHING PATTERN - Cardiovascular Exam Cardiovascular Exam: REGULAR RHYTHM, +S1, +S2. absent: Murmur - GI/Abdominal Exam GI & Abdominal Exam: Soft, Normal Bowel Sounds. absent: Tenderness - Rectal Exam Rectal Exam: NORMAL INSPECTION - Extremities Exam Extremities Exam: Full ROM, Normal Capillary Refill, Normal Inspection. absent: Joint Swelling, Pedal Edema - Back Exam Back Exam: NORMAL INSPECTION - Neurological Exam Neurological Exam: Alert, Awake, CN II-XII Intact, Oriented x3 - Psychiatric Exam Psychiatric exam: Normal Affect, Normal Mood - Skin Skin Exam: Dry, Intact, Normal Color, Warm Assessment and Plan - Assessment and Plan (Free Text) Assessment: ACUTE RESPIRATORY FAILURE--EXTUBATED PLEURAL EFFUSION[R>L] [facility] Plan: CONTINUE CURRENT RX MAY NEED REPEAT THORACENTESES IF PLEURAL EFFUSION WORSENS/PERSIST AFTER DIALYSIS
--- NOTE | 2018-09-05 11:48 | RAD ---
Date of service: 09/05/2018 PROCEDURE: CHEST RADIOGRAPH, 1 VIEW HISTORY: resp failure COMPARISON: 09/04/2018 at 0430 hr FINDINGS: LUNGS: Shallow lung volumes-right pacemaker generator battery pack markedly obscures most of the inferior right ward thorax and lung as it did before. Overall lung volumes are shallow-more so now than before. Some interval discoid atelectasis at left mid to lower lung zone suggested. Some left perihilar [id number]-gfargly-[id number] also suspect. Interval endotracheal tube removal. PLEURA: No pneumothorax or pleural fluid seen. CARDIOVASCULAR: There is presence of aortic atherosclerotic calcification on x-ray. Cardiomegaly-similar. Left PICC line insertion tip probably at right atrium. Right the generator pacemaker battery present pacemaker lead appear grossly unremarkable-defibrillator arnol device in telemetry mid monitoring material projecting over the central inferior hemithorax and the left upper abdomen. Mild pulmonary venous congestion suspect Right central venous dialysis catheter tip superior vena cava appears in place as before. OSSEOUS STRUCTURES: No significant abnormalities. VISUALIZED UPPER ABDOMEN: Interval nasogastric tube removed. OTHER FINDINGS: None. IMPRESSION: Interval endotracheal tube and nasogastric tube removed. Other support lines and catheters as above. Shallow lung volumes-with interval discoid atelectasis left mid to lower lung zone. Here concomitant bronchiectasis similar-appearing suspect. Cardiomegaly and mild pulmonary venous congestion suspect. Again right sided pacemaker battery pack significantly obscuring underlying inferior right hemithorax/lung
--- NOTE | 2018-09-05 12:06 | CP.PCM.PN ---
Subjective - Date & Time of Evaluation Date of Evaluation: 09/05/18 Time of Evaluation: 12:06 - Subjective Subjective: pt is seen and examined, follow up consult is dictated #[id number] pt's daughter at bed side, wants to continue hd 3 x a week mwf for hd today, uf goal is 2 lit Objective - Vital Signs/Intake and Output Vital Signs (last 24 hours): Temp Pulse Resp BP Pulse Ox 97.3 F L 96 H 22 107/54 L 100 09/05/18 08:00 09/05/18 11:13 09/05/18 10:00 09/05/18 11:13 09/05/18 10:00 Intake and Output: 09/05/18 09/05/18 06:59 18:59 Intake Total 0 0 Output Total 40 100 Balance -40 -100 - Medications Medications: Current Medications Acetaminophen (Tylenol 650mg/20.3ml Solution Ud) 650 mg PO Q4 PRN PRN Reason: Pain, moderate (4-7) Albuterol/Ipratropium (Duoneb 3 Mg/0.5 Mg (3 Ml) Ud) 3 ml INH RQ4 PRN PRN Reason: Shortness of Breath Last Admin: 09/05/18 11:25 Dose: 3 ml Anastrozole (Arimidex 1 Mg Tab) 1 mg PO DAILY [facility] Last Admin: 08/22/18 09:00 Dose: Not Given Benzocaine/Menthol (Cepacol Sore Throat) 1 malu PO Q2 PRN PRN Reason: Sore Throat Calcium Acetate (Phoslo) 667 mg PO DAILY [facility] Last Admin: 08/22/18 10:00 Dose: Not Given Carvedilol (Coreg) 6.25 mg PO Q12 [facility] Last Admin: 09/05/18 11:13 Dose: Not Given Dextrose (Dextrose 50% Inj) 0 ml IV STAT PRN; Protocol PRN Reason: Hypoglycemia Protocol Dextrose (Glutose 15) 0 gm PO ONCE PRN; Protocol PRN Reason: Hypoglycemia Protocol Diltiazem HCl (Cardizem) 30 mg PO QID [facility] Last Admin: 09/05/18 10:58 Dose: Not Given Dimethicone (Proshield Plus Skin Protectant) 1 applic TOP Q8 [facility] Last Admin: 09/05/18 01:33 Dose: 1 applic Epoetin Theron (Procrit) 10,000 unit IV MWF [facility] Last Admin: 09/03/18 15:22 Dose: 10,000 unit Ergocalciferol (Drisdol 50,000 Intl Units Cap) 1 cap PO QWK [facility] Escitalopram Oxalate (Lexapro) 20 mg PO DAILY [facility] Famotidine (Pepcid) 20 mg PO BID [facility] Last Admin: 09/05/18 11:19 Dose: Not Given Glucagon (Glucagen Diagnostic Kit) 0 mg IM STAT PRN; Protocol PRN Reason: Hypoglycemia Protocol Guaifenesin/Dextromethorphan (Robitussin Dm) 10 ml PO Q6 PRN PRN Reason: Cough Last Admin: 08/23/18 10:05 Dose: 10 ml Insulin Detemir (Levemir) 10 units SC HS [facility] Insulin Human Lispro (Humalog) 10 units SC TIDAC [facility] Last Admin: 08/22/18 12:31 Dose: Not Given Insulin Human Regular (Humulin R) 0 units SC ACCU-CHECK [facility]; Protocol Last Admin: 09/05/18 11:54 Dose: Not Given Lactulose (Enulose) 20 gm PO TID [facility] Last Admin: 08/25/18 08:24 Dose: 20 gm Lidocaine (Lidoderm) 1 ea TD DAILY [facility] Last Admin: 09/05/18 09:05 Dose: 1 ea Lidocaine HCl (Lidocaine 2% Viscous) 15 ml PO Q8H PRN PRN Reason: dysphagia Last Admin: 08/29/18 18:50 Dose: 15 ml Losartan Potassium (Cozaar) 50 mg PO DAILY [facility] Metolazone (Zaroxolyn) 2.5 mg PO DAILY [facility] Ondansetron HCl (Zofran Inj) 4 mg IVP Q6 PRN PRN Reason: Nausea/Vomiting Last Admin: 09/01/18 16:45 Dose: 4 mg Phenol/Menthol (Phenaseptic 1.4% Throat [place]) 1 spry MT Q2 PRN PRN Reason: Pain, Mild (1-3) Last Admin: 08/27/18 20:32 Dose: 1 spray Rifaximin (Xifaxan) 550 mg PO BID [facility]; Protocol Last Admin: 08/22/18 09:07 Dose: Not Given Saliva Substitute (First Magic Mouthwash) 5 ml PO TID [facility] Last Admin: 09/05/18 09:10 Dose: 5 ml Sitagliptin Phosphate (Januvia) 25 mg PO DAILY [facility] Last Admin: 09/03/18 08:52 Dose: 25 mg Tiotropium [place] (Spiriva) 18 mcg INH DAILY [facility] Last Admin: 09/04/18 09:02 Dose: Not Given - Labs Labs: 09/05/18 06:00 09/05/18 06:00 PT 15.6 Seconds (9.8-13.1) H 09/02/18 04:41 INR 1.4 09/02/18 04:41 APTT 32.2 Seconds (25.6-37.1) 08/24/18 06:45
[2018-09-05] MEDS ORDERED: Albumin Human 25% (12.5 gm/50 ml) IV ONE (12:55)
--- NOTE | 2018-09-05 13:00 | CP.CCUPN ---
CCU Subjective - Physician Review Subjective (Free Text): Events over the past 4-5 days reviewed, extubated yesterday and remains awake and conversant with daughter at the bedside. Routinely scheduled HD for this AM held by the family, now reversed and will undergo HD this afternoon when HD nurse is available. Remains NPO, Dysphagia eval pending post 24H after extubation. Afebrile, no fever spikes last 24H, HR 90, RR 22, on nasal cannula, SPO2 99%. BP trends have been lower at approx. 105 systolic, urine output only 100ml last 12H via PureWick catheter system. ROS: No other pertinent negs or positives on 10+ system review. PMSFH: All other Nursing and physician documentation reviewed to date; no new pertinent info noted relevant to current medical problems. EXAM- HEENT: no icterus, no gaze preference NECK: No JVD visible, supple, carotids equal upstroke bilat/no bruit. CHEST: decreased BS at the bases, especially R base; no wheezes audible bilaterally. HEART: irregular, distant, S1S2, no rubs or murmurs noted ABD: soft, nontender, no guarding, no organomegaly, BS hypoactive EXT: +1 leg edema, no calf tenderness or palpable cords, distal pulses faint but symmetrical. LUE PICC NEURO: withdraws to pain, + tone in all extremities. SKIN: no rashes, warm and dry LABS: WBC= 7.4 HGB= 9.1 PLTs= 30K Na= 136 K= 4.1 CL= 100 HCO3= 26 BUN/Cr= 51/2.4 BS= 155 IMPRESSION / MAJOR PROBLEMS NOW: 1. Acute resp insuff 2 Pleural effusion ( r/o parapneumonic / pneumonia process) and s/p R Thoracentesis 2. s/p Hypotension / Shock 2 Hypovolemia / antiHTN meds-Diuretics. 3. s/p Metabolic Encephalopathy (Azotemia, Hyperammonemia), r/o Toxic Drug effect (Lexapro) 4. s/p Hyponatremia 2 Hypovolemia / Diuretics 5. s/p Abdominal Wall Hematoma 6. Chronic A fib with controlled VR, PPM, on no AC. PLAN: 1. Another HD session agreed upon for today as per Nephro and family. Discussed with Nephro: will lower Cardizem and Coreg doses to allow for higher BP levels during HD. 2. NPO status, but may benefit from more aggressive nutritional support with enteral tube feeds if patient agrees. 3. Repeat CXR shows bilat pleural fluid, though rate of re-accumulation shows R sided fluid to be increasing again. 4. Low platelets persist, but HGb stable, no active bleeding evident, hold on platelet trf today.
--- NOTE | 2018-09-05 13:13 | RAD ---
Date of service: 09/05/2018 HISTORY: Flexible Kangaroo feeding tube placement COMPARISON: 09/05/2018 FINDINGS: LUNGS: Right pacemaker generator battery pack markedly obscures most of the inferior right ward thorax and lung as it did before an lung volumes shallow slightly less now than before. Minimal left mid lung zone thread-like atelectasis. Some concomitant regional pleural thickening here possible Slight interval increase atelectasis and/or infiltrate left lung base. PLEURA: Minimal left pleural effusion-similar. Right pleural effusion greater than that on the left probably similar to that before. No pneumothorax seen CARDIOVASCULAR: There is presence of aortic atherosclerotic calcification on x-ray. Cardiomegaly-similar mild concomitant pulmonary venous congestion left PICC line tip cavoatrial junction. Right pacemaker generator battery pack obscuring right mid lung zone assessment Duallead pacemaker device in place as before. Right central renal dialysis catheter tip in superior vena cava-as before OSSEOUS STRUCTURES: Thoracic spondylosis. VISUALIZED UPPER ABDOMEN: Interval insertion of a feeding tube beyond the inferior edge of this study at least courses over expected stomach OTHER FINDINGS: None. IMPRESSION: Interval insertion feeding tube as referenced above. Bilateral mixed pathologies hree noted those on the right are similar as detailed above. On the left interval slight increased left subsegmental basilar atelectasis and/or infiltrate possible. Other left-sided findings are as detailed above.
--- NOTE | 2018-09-05 13:26 | PCM.PROC ---
Procedures Attestation:: I certify that I have explained the specified Operation(s) or Procedure(s), risks, benefits and reasonable alternatives to the Patient and/or other person responsible. The opportunity was given to ask questions and all questions answered - Feeding Tube Replacement Additional comments: Procedure Note: Flexible small bore 10 Fr Kangaroo nasoenteric feeding tube insertion done without complications at the bedside after discussion with and consent by patient and daughter. Patient placed into Fowlers position, tube pre-measured from earlobe to xiphoid process for proper length and depth guidance. Distal end of tube lubricated with water and inserted via R nares and advanced to 60 cm keith at the nares and secured in place for Xray confirmation. Tube visualized on Xray with distal tip seen passed the level of the hemidiaphragms, and NGT advanced further to 70cm keith, position re-confirmed with 10 cc bolus of air heard on auscultation over the stomach; and wire stylet removed. Patient tolerated procedure well.
[2018-09-05] MEDS: EPOETIN ALFA 10,000 UNIT/ML ML IV SCH (14:20)
[2018-09-05] MEDS: Tiotropium 18 mcg Cap For Inhalation INH SCH (17:38)
[2018-09-05] MEDS: Acetaminophen 650mg/20.3ml solution UD PO PRN (19:51)
[2018-09-06] MEDS: Proshield Plus GEL TOP SCH (01:00)
--- NOTE | 2018-09-06 01:02 | CP.PCM.PN ---
Subjective - Date & Time of Evaluation Date of Evaluation: 09/05/18 Time of Evaluation: 08:30 - Subjective Subjective: Pt seen and assessed at bedside. Plan of care discussed with staff. Pt was recently extubated on 09/04 and is currently on 4L O2 via nasal cannula. At this time, the pt can follow basic commands and shows no new neuro deficits s/p code blue. Review of Systems - Review of Systems Review of Systems: Reviewed and no additional remarkable complaints were reported. Objective - Vital Signs/Intake and Output Vital Signs (last 24 hours): Temp Pulse Resp BP Pulse Ox 96.6 F L 85 22 128/62 96 09/05/18 16:00 09/05/18 21:03 09/05/18 18:00 09/05/18 21:03 09/05/18 18:00 Intake and Output: 09/05/18 09/06/18 18:59 06:59 Intake Total 420 80 Output Total 2180 Balance -1760 80 - Medications Medications: Current Medications Acetaminophen (Tylenol 650mg/20.3ml Solution Ud) 650 mg PO Q4 PRN PRN Reason: Pain, moderate (4-7) Last Admin: 09/05/18 19:51 Dose: 650 mg Albuterol/Ipratropium (Duoneb 3 Mg/0.5 Mg (3 Ml) Ud) 3 ml INH RQ4 PRN PRN Reason: Shortness of Breath Last Admin: 09/05/18 23:11 Dose: 3 ml Anastrozole (Arimidex 1 Mg Tab) [address] [facility] Last Admin: 08/22/18 09:00 Dose: Not Given Calcium Acetate (Phoslo) [address] [facility] Last Admin: 08/22/18 10:00 Dose: Not Given Carvedilol (Coreg) 3.[address] [facility] Last Admin: 09/05/18 21:03 Dose: 3.125 mg Diltiazem HCl (Cardizem) [address] [facility] Last Admin: 09/05/18 17:34 Dose: 30 mg Dimethicone (Proshield Plus Skin Protectant) [address] [facility] Last Admin: 09/05/18 17:37 Dose: 1 applic Epoetin Theron (Procrit) 10,[address] [facility] Last Admin: 09/05/18 14:20 Dose: 10,000 unit Ergocalciferol (Drisdol 50,000 Intl Units Cap) [address] [facility] Escitalopram Oxalate (Lexapro) [address] [facility] Famotidine (Pepcid) [address] [facility] Last Admin: 09/05/18 17:37 Dose: 20 mg Insulin Detemir (Levemir) [address] [facility] Insulin Human Lispro (Humalog) [address] [facility] Last Admin: 08/22/18 12:31 Dose: Not Given Insulin Human Regular (Humulin R) 0 units SC ACCU-CHECK [facility]; Protocol Last Admin: 09/05/18 17:36 Dose: Not Given Lactulose (Enulose) [address] [facility] Last Admin: 08/25/18 08:24 Dose: 20 gm Lidocaine (Lidoderm) [address] [facility] Last Admin: 09/05/18 09:05 Dose: 1 ea Lidocaine HCl (Lidocaine 2% Viscous) 15 ml PO Q8H PRN PRN Reason: dysphagia Last Admin: 08/29/18 18:50 Dose: 15 ml Losartan Potassium (Cozaar) [address] [facility] Metolazone (Zaroxolyn) 2.[address] [facility] Ondansetron HCl (Zofran Inj) 4 mg IVP Q6 PRN PRN Reason: Nausea/Vomiting Last Admin: 09/01/18 16:45 Dose: 4 mg Phenol/Menthol (Phenaseptic 1.4% Throat [place]) 1 spry MT Q2 PRN PRN Reason: Pain, Mild (1-3) Last Admin: 08/27/18 20:32 Dose: 1 spray Rifaximin (Xifaxan) [address] [facility]; Protocol Last Admin: 08/22/18 09:07 Dose: Not Given Saliva Substitute (First Magic Mouthwash) [address] [facility] Last Admin: 09/05/18 17:35 Dose: 5 ml Sitagliptin Phosphate (Januvia) [address] [facility] Last Admin: 09/03/18 08:52 Dose: 25 mg Tiotropium [place] (Spiriva) [address] [facility] Last Admin: 09/05/18 17:38 Dose: 18 mcg - Labs Labs: 09/05/18 06:00 09/05/18 06:00 PT 15.6 Seconds (9.8-13.1) H 01/27/19 04:41 INR 1.4 09/02/18 04:41 APTT 32.2 Seconds (25.6-37.1) 08/24/18 06:45 - Head Exam Head Exam: NORMOCEPHALIC - Eye Exam Eye Exam: PERRL Pupil Exam: PERRL - ENT Exam ENT Exam: Mucous Membranes Moist - Respiratory Exam Respiratory Exam: Decreased Breath Sounds - Cardiovascular Exam Cardiovascular Exam: Irregular Rhythm, +S1, +S2 - GI/Abdominal Exam GI & Abdominal Exam: Soft, Normal Bowel Sounds - Extremities Exam Extremities Exam: Pedal Edema Additional comments: 1+ to 2+ edema to Bilateral lower extremities. - Neurological Exam Neurological Exam: Alert, Awake - Psychiatric Exam Psychiatric exam: Normal Affect, Normal Mood - Skin Skin Exam: Dry, Warm Assessment and Plan (1) Respiratory failure Assessment & Plan: Assessment/Impression/Major problems now: (Assessment done on 09/05/18 at 08:30). 1.) Respiratory failure/Pleural Effusions -Pt extubated on 09/04 (after being intubated on 09/03); currently on 4L O2 via nasal cannula. -Adequate oxygenation noted on nasal cannula; currently 100 % SpO2. -post extubation swallow eval ordered. -CXR ordered for the morning. Assess for aspiration pneumonia and worsening pleural effusion. -Thoracentesis done in the past; consider another if pleural effusions worsen. Status: Acute (2) Acute renal failure Assessment & Plan: 2.) Acute Renal Failure -Case discussed with Dr. Stovall; pts family requested to hold hemodialy sis for today until further notice. Status: Acute (3) Thrombocytopenia Assessment & Plan: 3.) Thrombocytopenia -Hem/onc consult appreciated. -As per Dr. Mora, plt transfusion will be on hold unless Platelet count drops below 20,000. Status: Chronic
[2018-09-06] MEDS: Albuterol-Ipratrop 3 mg / 0.5 (3 ml) UD INH PRN ×2 (03:50→16:43)
--- NOTE | 2018-09-06 04:26 | PN ---
DATE: 09/05/2018 FOLLOWUP RENAL CONSULTATION LOCATION: The patient is located in room 435, bed 1. REQUESTED BY: Chintan Wayne MD REASON FOR RENAL CONSULTATION: Acute renal failure, CHF, and for continuation of hemodialysis. HISTORY OF PRESENT ILLNESS: Mrs. Sheth is an 82-year-old elderly female with a past medical history significant for longstanding hypertension, diabetes, AFib, pulmonary hypertension, [id number] tricuspid regurgitation, cirrhosis of the liver, was admitted on 08/04/2018 with shortness of breath, cough, yellow sputum. The patient was treated for pneumonia and also CHF, status post thoracentesis x2. Hospital course complicated by acute renal failure, requiring initiation of the renal replacement therapy. The patient is on hemodialysis three times a week for the last 10 days. The patient was intubated during dialysis on Monday due to respiratory failure and choking. Now, the patient is off ventilator with worsening CHF. The patient's family agreed for hemodialysis, wants to continue three times a week as per the patient's daughter at bedside. The patient is not in acute distress. The patient is alert, awake, following commands appropriately. PHYSICAL EXAMINATION: VITAL SIGNS: This morning, blood pressure 107/54, pulse 96, respirations 22, temperature 98.9, saturation 100%. Height 4 feet 11 inches, weight is 134 pounds. GENERAL: Mrs. Sheth is an 82-year-old elderly female, moderately built, moderately nourished, not in distress. HEENT: Pupils are normal, reactive to light and accommodation. Conjunctivae pink. Sclerae anicteric. Tongue is moist. Trachea is midline. LUNGS: Symmetric on both sides. Bilateral decreased breath sounds, right more than the left. CARDIOVASCULAR SYSTEM: [place] at the fifth intercostal space, midclavicular line. S1 and S2 audible. Irregularly irregular. Rate is under control. ABDOMEN: Normal in appearance, soft, tympanitic. No guarding. No rigidity. No hepatosplenomegaly. CENTRAL NERVOUS SYSTEM: The patient is alert, awake, oriented x2 to 3. Cranial nerves II-XII grossly intact. Sensory and motor system within normal limits. EXTREMITIES: No cyanosis, no clubbing in lower extremities. The patient has edema of both upper extremities. CURRENT MEDICATIONS: Include as follows: Cardizem 30 mg p.o. b.i.d., Coreg 6.25 mg p.o. every 12 hours, losartan is on hold, lidocaine patch, Pepcid 20 mg p.o. b.i.d., Epogen 10,000 units three times a week Monday, Monday and Monday, Spiriva 18 mcg inhaler daily, Robitussin DM 10 mL p.o. every 6 hours p.r.n., and Zofran 4 mg IV every 6 hours p.r.n. LABORATORY DATA: Include as follows: As of 09/05/2018, WBC is 7.4, hemoglobin 9.1, hematocrit is 27.5, platelets 30. Sodium 136, potassium 4.3, chloride 100, CO2 26, BUN 51, creatinine 2.4, glucose 155, calcium 8.8, total bili 1.5. AST 36, ALT 62, alkaline phosphatase 72, total protein 5.7, albumin is 2.4, proBNP 6130. Accu-Cheks 154, 152, and 140. Intake is 122 mL and output is 140 mL urine. ASSESSMENT AND PLAN: Mrs. Sheth is an 82-year-old elderly female with a history of hypertension, diabetes, atrial fibrillation, pulmonary hypertension, tricuspid regurgitation, cirrhosis of the liver with acute renal failure, on hemodialysis three times a week for the last 10 days, status post extubation with increasing pleural effusion. 1. Oliguric acute renal failure, most likely secondary to acute tubular necrosis, cannot rule out secondary to cirrhosis of the liver. 2. Anemia. 3. Thrombocytopenia, secondary to cirrhosis of the liver. 4. Bilateral pleural effusion. 5. Tricuspid regurgitation with pulmonary hypertension. The patient's family is requesting hemodialysis today and wants to continue three times a week. We will schedule for hemodialysis this afternoon and the UF goal is about 2 liters and as tolerated and also we will give albumin 25% 50 mL every 1 hour p.r.n. during dialysis for low bp. Restrict fluids to 1 liter per day. Continue Epogen. Case discussed with Dr. Monroe in rounds. We will decrease Coreg to 3.125 mg p.o. b.i.d. and we will continue monitor the rate control for the AFib. Overall prognosis is guarded. We will follow with you. Thank you for allowing me to participate in your patient's care. Lalita Stovall MD TETO
[2018-09-06 06:21] LABS: HEMOGLOBIN 9.6 g/dL (12.0-16.0); MEAN CORPUSCULAR HEMOGLOBIN 34.6 pg (27.0-31.0); MEAN CORPUSCULAR HGB CONC 33.3 g/dL (33.0-37.0); RBC 2.76 Mil/uL (3.80-5.20); RED CELL DISTRIBUTION WIDTH 21.4 % (11.5-14.5)
[2018-09-06 06:54] LABS: ALBUMIN 3.3 g/dL (3.5-5.0); CALCIUM 8.8 mg/dL (8.4-10.2)
--- NOTE | 2018-09-06 08:43 | CP.CCUPN ---
CCU Subjective - Physician Review Subjective (Free Text): Feeding tube placed yesterday after discussion with daughter over risk of aspiration after noting much coughing with PO feeds by the daughter. Kept NPO. Afebrile, no fever spikes last 24H, HR 90 A Fib, RR 22, on nasal cannula, SPO2 94%. BP at approx. 113 systolic, urine output only 130ml last 12H via PureWick catheter system. Underwent HD with removal of 2 L. yesterday. ROS: No other pertinent negs or positives on 10+ system review. PMSFH: All other Nursing and physician documentation reviewed to date; no new pertinent info noted relevant to current medical problems. EXAM- HEENT: no icterus, no gaze preference NECK: No JVD visible, supple, carotids equal upstroke bilat/no bruit. CHEST: decreased BS at the bases, especially R base; no wheezes audible bilaterally. HEART: irregular, distant, S1S2, no rubs or murmurs noted ABD: soft, nontender, no guarding, no organomegaly, BS hypoactive EXT: +1 leg edema, no calf tenderness or palpable cords, distal pulses faint but symmetrical. LUE PICC NEURO: withdraws to pain, + tone in all extremities. SKIN: no rashes, warm and dry LABS: WBC= 8.0 HGB= 9.6 PLTs= 26K Na= 136 K= 4.3 CL= 97 HCO3= 27 BUN/Cr= 39/2.0 BS= 271 IMPRESSION / MAJOR PROBLEMS NOW: 1. Acute resp insuff 2 Pleural effusion ( r/o parapneumonic / pneumonia process) and s/p R Thoracentesis 2. s/p Hypotension / Shock 2 Hypovolemia / antiHTN meds-Diuretics. 3. s/p Metabolic Encephalopathy (Azotemia, Hyperammonemia), r/o Toxic Drug effect (Lexapro) 4. s/p Hyponatremia 2 Hypovolemia / Diuretics 5. s/p Abdominal Wall Hematoma 6. Chronic A fib with controlled VR, PPM, on no AC. PLAN: 1. Trial at aggressive enteral nutritional support to minimize any further impact on recurrence of R-sided pleural effusions. 2. Follow repeat CXR. Unclear if routine scheduled HD sessions will ultimately result in clearing effusions. 3. Improve glycemic control. 4. VR controlled with chronic A Fib, even after reduction of Coreg and Cardizem doses with recent low BP levels. 5. Stable for transfer out of ICU.
[2018-09-06] MEDS: Tiotropium 18 mcg Cap For Inhalation INH SCH (09:00)
[2018-09-06] MEDS: Acetaminophen 650mg/20.3ml solution UD PO PRN ×3 (09:00→20:52)
[2018-09-06] MEDS: Mag&Al/Simet/Diphen/Lido 237 ML KIT PO SCH ×3 (09:01→16:13)
[2018-09-06] MEDS: Insulin Regular 100 units/ml SC SCH ×4 (09:02→22:00)
[2018-09-06] MEDS: Lidocaine 5% Patch TD SCH (09:03)
--- NOTE | 2018-09-06 09:14 | CP.PCM.PN ---
Subjective - Date & Time of Evaluation Date of Evaluation: 09/06/18 Time of Evaluation: 09:14 - Subjective Subjective: yesterday events noted lungs-bilateral dullness on auscultation[r>l] cxr reviewed--moderate r pleural effusion will request thoracenteses via interventional radiology Objective - Vital Signs/Intake and Output Vital Signs (last 24 hours): Temp Pulse Resp BP Pulse Ox 97.2 F L 88 20 113/69 94 L 09/06/18 08:21 09/06/18 09:03 09/06/18 08:21 09/06/18 09:01 09/06/18 08:21 Intake and Output: 09/06/18 09/06/18 06:59 18:59 Intake Total 760 Balance 760 - Medications Medications: Current Medications Acetaminophen (Tylenol 650mg/20.3ml Solution Ud) 650 mg PO Q4 PRN PRN Reason: Pain, moderate (4-7) Last Admin: 09/06/18 09:00 Dose: 650 mg Albuterol/Ipratropium (Duoneb 3 Mg/0.5 Mg (3 Ml) Ud) 3 ml INH RQ4 PRN PRN Reason: Shortness of Breath Last Admin: 09/06/18 03:50 Dose: 3 ml Anastrozole (Arimidex 1 Mg Tab) 1 mg PO DAILY [facility] Last Admin: 08/22/18 09:00 Dose: Not Given Calcium Acetate (Phoslo) 667 mg PO DAILY [facility] Last Admin: 08/22/18 10:00 Dose: Not Given Carvedilol (Coreg) 3.125 mg PO Q12 [facility] Last Admin: 09/06/18 09:01 Dose: 3.125 mg Diltiazem HCl (Cardizem) 30 mg PO BID [facility] Last Admin: 09/06/18 09:03 Dose: 30 mg Epoetin Theron (Procrit) 10,000 unit IV MWF [facility] Last Admin: 09/05/18 14:20 Dose: 10,000 unit Ergocalciferol (Drisdol 50,000 Intl Units Cap) 1 cap PO QWK [facility] Escitalopram Oxalate (Lexapro) 20 mg PO DAILY [facility] Famotidine (Pepcid) 20 mg PO BID [facility] Last Admin: 09/06/18 09:01 Dose: 20 mg Insulin Detemir (Levemir) 10 units SC HS [facility] Insulin Human Lispro (Humalog) 10 units SC TIDAC [facility] Last Admin: 08/22/18 12:31 Dose: Not Given Insulin Human Regular (Humulin R) 0 units SC ACCU-CHECK [facility]; Protocol Last Admin: 09/06/18 09:02 Dose: 3 unit Lactulose (Enulose) 20 gm PO TID [facility] Last Admin: 08/25/18 08:24 Dose: 20 gm Lidocaine HCl (Lidocaine 2% Viscous) 15 ml PO Q8H PRN PRN Reason: dysphagia Last Admin: 08/29/18 18:50 Dose: 15 ml Losartan Potassium (Cozaar) 50 mg PO DAILY [facility] Metolazone (Zaroxolyn) 2.5 mg PO DAILY [facility] Ondansetron HCl (Zofran Inj) 4 mg IVP Q6 PRN PRN Reason: Nausea/Vomiting Last Admin: 09/01/18 16:45 Dose: 4 mg Phenol/Menthol (Phenaseptic 1.4% Throat [place]) 1 spry MT Q2 PRN PRN Reason: Pain, Mild (1-3) Last Admin: 08/27/18 20:32 Dose: 1 spray Rifaximin (Xifaxan) 550 mg PO BID [facility]; Protocol Last Admin: 08/22/18 09:07 Dose: Not Given Saliva Substitute (First Magic Mouthwash) 5 ml PO TID [facility] Last Admin: 09/06/18 09:01 Dose: 5 ml Sitagliptin Phosphate (Januvia) 25 mg PO DAILY [facility] Last Admin: 09/03/18 08:52 Dose: 25 mg - Labs Labs: 09/06/18 06:00 09/06/18 06:00 PT 15.6 Seconds (9.8-13.1) H 09/02/18 04:41 INR 1.4 09/02/18 04:41 APTT 32.2 Seconds (25.6-37.1) 08/24/18 06:45
--- NOTE | 2018-09-06 09:41 | RAD ---
Date of service: 09/06/2018 HISTORY: resp failure COMPARISON: Comparison chest 09/05/2018. FINDINGS: In situ feeding tube tip of which overlies left parasagittal mid abdomen. No change right IJ central venous access catheter with tip in the SVC or left-sided PICC line the tip of which also located in the SVC... LUNGS: Mild underlying pulmonary venous congestive changes with bilateral lower lobe atelectatic and or infiltrate changes and bilateral effusions right greater than left PLEURA: As above. No pneumothorax apparent. CARDIOVASCULAR: There is aortic atherosclerotic calcification present. Normal cardiac size. No pulmonary vascular congestion. OSSEOUS STRUCTURES: No significant abnormalities. VISUALIZED UPPER ABDOMEN: Normal. OTHER FINDINGS: None. IMPRESSION: Support lines and tubes as above. Mild underlying pulmonary venous congestive changes with bilateral lower lobe atelectatic and or infiltrate changes and bilateral effusions right greater than left
--- NOTE | 2018-09-06 12:27 | VASCULAR ---
PROCEDURE: Date of procedure: 08/24/2018 Procedure: Placement of a non tunneled hemodialysis catheter, CPT 33841 Medications: 6cc 1 percent lidocaine Radiation: 10.32 MGy Fluoro time: 51.9 Seconds Images saved: 2 HISTORY: Renal failure TECHNIQUE: Following informed consent, the patient's right neck was prepped and draped in the usual sterile fashion. Ultrasound showed a patent and compressible right internal jugular vein. After the skin was anesthetized with 1% lidocaine, the internal jugular vein was accessed under direct ultrasound guidance with micropuncture technique and a guidewire was advanced under fluoroscopic guidance into the SVC. The venotomy was then dilated to accommodate a non tunneled 15 hemodialysis catheter. An image documenting ultrasound guidance for vascular access was permanently saved. The catheter was tested and has adequate blood return for hemodialysis. The catheter was flushed and loaded with heparin per specified amounts. The catheter was secured to patient's skin. A dressing was applied. Post procedure chest x-ray showed a hemodialysis catheter at the caval atrial junction. IMPRESSION: Placement of a non tunneled 15 centimeter hemodialysis catheter via the right internal jugular vein. The tip of the catheter was confirmed with a postoperative chest x-ray and is at the cavoatrial junction. The catheter is functional ready for use.
--- NOTE | 2018-09-06 15:57 | RAD ---
Date of service: 09/06/2018 HISTORY: Feeding tube re-placement COMPARISON: Comparison chest dated 09/05 at 0427 hr. FINDINGS: In situ feeding tube, the distal aspect of which is coiled upon itself in the mid stomach with tip oriented superiorly and medially to the left near the EG junction.. In situ left-sided PICC line with tip in the SVC. Also again seen is a right IJ dialysis catheter with tip in the SVC. LUNGS: Bibasilar opacities right greater than left likely representing combination bilateral effusions right larger than left with atelectasis and/or infiltrate. PLEURA: As above. No pneumothorax apparent. CARDIOVASCULAR: Heart size difficult to assess due to silhouetting of the right cardiac border though heart does appear enlarged and unchanged in appearance from prior exam.. [id number] aortic atherosclerotic calcification present. In situ bipolar pacemaker/defibrillator unchanged OSSEOUS STRUCTURES: No significant abnormalities. VISUALIZED UPPER ABDOMEN: Normal. OTHER FINDINGS: None. IMPRESSION: Bibasilar opacities right greater than left likely representing combination bilateral effusions right larger than left with atelectasis and/or infiltrate.. In situ feeding tube, the distal aspect of which is coiled upon itself in the mid stomach with tip oriented superiorly and medially near the EG junction.
--- NOTE | 2018-09-06 17:49 | CP.PCM.PN ---
Subjective - Date & Time of Evaluation Date of Evaluation: 09/06/18 Time of Evaluation: 11:00 - Subjective Subjective: patient seen and examined at bedside. Interim events noted No complaints offered at this time feeding via ng tube denies cp/sob/fever/chills. available diagnostic data reviewed Review of Systems All systems: reviewed and no additional remarkable complaints except mentioned above Objective Vital Signs Stable - Constitutional Appears: Non-toxic, No Acute Distress - Head Exam Head Exam: NORMAL INSPECTION - Eye Exam Eye Exam: Normal appearance - Respiratory Exam Respiratory Exam: NORMAL BREATHING PATTERN, decreased breath sounds at bases - Cardiovascular Exam Cardiovascular Exam: +S1, +S2 - GI/Abdominal Exam GI & Abdominal Exam: Soft - Neurological Exam Neurological Exam: Alert, Awake - Psychiatric Exam Psychiatric exam: Normal Affect, Normal Mood - Skin Skin Exam: Normal Color, Warm Assessment and Plan monitor vitals monitor labs Cont meds Cont tx consultants appreciated input platelet transfusion today possible thoracenetis tomorrow depending on plt count rest of plan as ordered Assessment and Plan (1) Acute renal failure Status: Acute (2) CHF (congestive heart failure) Status: Acute (3) Pleural effusion Status: Acute (4) Thrombocytopenia Status: Chronic (5) Anemia Status: Acute (6) Physical debility Status: Acute (7) Cirrhosis Status: Chronic (8) DM2 (diabetes mellitus, type 2) Status: Chronic
[2018-09-06] MEDS ORDERED: Acetylcysteine 20% Inhal Soln (4ml) INH ONE (17:51)
[2018-09-06] MEDS: Albuterol-Ipratrop 3 mg / 0.5 (3 ml) UD INH SCH ×3 (18:31→23:53)
--- NOTE | 2018-09-06 19:17 | CP.PCM.PN ---
Subjective - Date & Time of Evaluation Date of Evaluation: 09/06/18 Time of Evaluation: 19:17 - Subjective Subjective: pt i seen and examined, follow up consult is dictated #[id number] Objective - Vital Signs/Intake and Output Vital Signs (last 24 hours): Temp Pulse Resp BP Pulse Ox 97.3 F L 81 23 137/62 95 09/06/18 16:00 09/06/18 18:00 09/06/18 18:00 09/06/18 18:00 09/06/18 18:00 Intake and Output: 09/06/18 09/07/18 18:59 06:59 Intake Total 900 Balance 900 - Medications Medications: Current Medications Acetaminophen (Tylenol 650mg/20.3ml Solution Ud) 650 mg PO Q4 PRN PRN Reason: Pain, moderate (4-7) Last Admin: 09/06/18 13:26 Dose: 650 mg Acetylcysteine (Acetylcysteine 20%) 2 ml INH RBID [facility] Albuterol/Ipratropium (Duoneb 3 Mg/0.5 Mg (3 Ml) Ud) 3 ml INH RQ4 PRN PRN Reason: Shortness of Breath Last Admin: 09/06/18 16:43 Dose: 3 ml Albuterol/Ipratropium (Duoneb 3 Mg/0.5 Mg (3 Ml) Ud) 3 ml INH RQ4 [facility] Last Admin: 09/06/18 18:31 Dose: 3 ml Anastrozole (Arimidex 1 Mg Tab) 1 mg PO DAILY [facility] Last Admin: 08/22/18 09:00 Dose: Not Given Calcium Acetate (Phoslo) 667 mg PO DAILY [facility] Last Admin: 08/22/18 10:00 Dose: Not Given Carvedilol (Coreg) 3.125 mg PO Q12 [facility] Last Admin: 09/06/18 09:01 Dose: 3.125 mg Diltiazem HCl (Cardizem) 30 mg PO BID [facility] Last Admin: 09/06/18 16:12 Dose: 30 mg Epoetin Theron (Procrit) 10,000 unit IV MWF [facility] Last Admin: 09/05/18 14:20 Dose: 10,000 unit Ergocalciferol (Drisdol 50,000 Intl Units Cap) 1 cap PO QWK [facility] Escitalopram Oxalate (Lexapro) 20 mg PO DAILY [facility] Insulin Detemir (Levemir) 5 units SC HS [facility] Insulin Human Lispro (Humalog) 10 units SC TIDAC [facility] Last Admin: 08/22/18 12:31 Dose: Not Given Insulin Human Regular (Humulin R) 0 units SC ACCU-CHECK [facility]; Protocol Last Admin: 09/06/18 16:47 Dose: 4 unit Lactulose (Enulose) 20 gm PO TID [facility] Last Admin: 08/25/18 08:24 Dose: 20 gm Lidocaine HCl (Lidocaine 2% Viscous) 15 ml PO Q8H PRN PRN Reason: dysphagia Last Admin: 08/29/18 18:50 Dose: 15 ml Losartan Potassium (Cozaar) 50 mg PO DAILY [facility] Metolazone (Zaroxolyn) 2.5 mg PO DAILY [facility] Nystatin (Nystop Topical Powder) 1 applic TOP TID [facility] Ondansetron HCl (Zofran Inj) 4 mg IVP Q6 PRN PRN Reason: Nausea/Vomiting Last Admin: 09/01/18 16:45 Dose: 4 mg Pantoprazole Sodium (Protonix Inj) 40 mg IVP DAILY [facility] Last Admin: 09/06/18 12:18 Dose: 40 mg Phenol/Menthol (Phenaseptic 1.4% Throat [place]) 1 spry MT Q2 PRN PRN Reason: Pain, Mild (1-3) Last Admin: 08/27/18 20:32 Dose: 1 spray Rifaximin (Xifaxan) 550 mg PO BID [facility]; Protocol Last Admin: 08/22/18 09:07 Dose: Not Given Saliva Substitute (First Magic Mouthwash) 5 ml PO TID [facility] Last Admin: 09/06/18 16:13 Dose: 5 ml Sitagliptin Phosphate (Januvia) 25 mg PO DAILY [facility] Last Admin: 09/03/18 08:52 Dose: 25 mg - Labs Labs: 09/06/18 06:00 09/06/18 06:00 PT 15.6 Seconds (9.8-13.1) H 09/02/18 04:41 INR 1.4 09/02/18 04:41 APTT 32.2 Seconds (25.6-37.1) 08/24/18 06:45
[2018-09-06] MEDS: Acetylcysteine 20% Inhal Soln (4ml) INH SCH (19:32)
--- NOTE | 2018-09-06 21:15 | CP.PCM.PN ---
Subjective - Date & Time of Evaluation Date of Evaluation: 09/06/18 Time of Evaluation: 13:00 - Subjective Subjective: Appears comfortable for thoracentesis by IR 2 bags of platelets prior to thoracentesis Objective - Vital Signs/Intake and Output Vital Signs (last 24 hours): Temp Pulse Resp BP Pulse Ox 97.3 F L 80 23 157/58 H 95 09/06/18 16:00 09/06/18 20:52 09/06/18 18:00 09/06/18 20:52 09/06/18 18:00 Intake and Output: 09/06/18 09/07/18 18:59 06:59 Intake Total 900 Balance 900 - Medications Medications: Current Medications Acetaminophen (Tylenol 650mg/20.3ml Solution Ud) 650 mg PO Q4 PRN PRN Reason: Pain, moderate (4-7) Last Admin: 09/06/18 20:52 Dose: 650 mg Acetylcysteine (Acetylcysteine 20%) 2 ml INH RBID [facility] Last Admin: 09/06/18 19:32 Dose: Not Given Albuterol/Ipratropium (Duoneb 3 Mg/0.5 Mg (3 Ml) Ud) 3 ml INH RQ4 PRN PRN Reason: Shortness of Breath Last Admin: 09/06/18 16:43 Dose: 3 ml Albuterol/Ipratropium (Duoneb 3 Mg/0.5 Mg (3 Ml) Ud) 3 ml INH RQ4 [facility] Last Admin: 09/06/18 19:32 Dose: Not Given Anastrozole (Arimidex 1 Mg Tab) 1 mg PO DAILY [facility] Last Admin: 08/22/18 09:00 Dose: Not Given Calcium Acetate (Phoslo) 667 mg PO DAILY [facility] Last Admin: 08/22/18 10:00 Dose: Not Given Carvedilol (Coreg) 3.125 mg PO Q12 [facility] Last Admin: 09/06/18 20:52 Dose: 3.125 mg Diltiazem HCl (Cardizem) 30 mg PO BID [facility] Last Admin: 09/06/18 16:12 Dose: 30 mg Epoetin Theron (Procrit) 10,000 unit IV MWF [facility] Last Admin: 09/05/18 14:20 Dose: 10,000 unit Ergocalciferol (Drisdol 50,000 Intl Units Cap) 1 cap PO QWK [facility] Escitalopram Oxalate (Lexapro) 20 mg PO DAILY [facility] Insulin Detemir (Levemir) 5 units SC HS [facility] Insulin Human Lispro (Humalog) 10 units SC TIDAC [facility] Last Admin: 08/22/18 12:31 Dose: Not Given Insulin Human Regular (Humulin R) 0 units SC ACCU-CHECK [facility]; Protocol Last Admin: 09/06/18 16:47 Dose: 4 unit Lactulose (Enulose) 20 gm PO TID [facility] Last Admin: 08/25/18 08:24 Dose: 20 gm Lidocaine HCl (Lidocaine 2% Viscous) 15 ml PO Q8H PRN PRN Reason: dysphagia Last Admin: 08/29/18 18:50 Dose: 15 ml Losartan Potassium (Cozaar) 50 mg PO DAILY [facility] Metolazone (Zaroxolyn) 2.5 mg PO DAILY [facility] Nystatin (Nystop Topical Powder) 1 applic TOP TID [facility] Ondansetron HCl (Zofran Inj) 4 mg IVP Q6 PRN PRN Reason: Nausea/Vomiting Last Admin: 09/01/18 16:45 Dose: 4 mg Pantoprazole Sodium (Protonix Inj) 40 mg IVP DAILY [facility] Last Admin: 09/06/18 12:18 Dose: 40 mg Phenol/Menthol (Phenaseptic 1.4% Throat [place]) 1 spry MT Q2 PRN PRN Reason: Pain, Mild (1-3) Last Admin: 08/27/18 20:32 Dose: 1 spray Rifaximin (Xifaxan) 550 mg PO BID [facility]; Protocol Last Admin: 08/22/18 09:07 Dose: Not Given Saliva Substitute (First Magic Mouthwash) 5 ml PO TID [facility] Last Admin: 09/06/18 16:13 Dose: 5 ml Sitagliptin Phosphate (Januvia) 25 mg PO DAILY [facility] Last Admin: 09/03/18 08:52 Dose: 25 mg - Labs Labs: 09/06/18 06:00 09/06/18 06:00 PT 15.6 Seconds (9.8-13.1) H 09/02/18 04:41 INR 1.4 09/02/18 04:41 APTT 32.2 Seconds (25.6-37.1) 08/24/18 06:45 - Head Exam Head Exam: ATRAUMATIC - Eye Exam Eye Exam: Normal appearance - ENT Exam ENT Exam: Mucous Membranes Dry - Respiratory Exam Respiratory Exam: Decreased Breath Sounds - Cardiovascular Exam Cardiovascular Exam: +S1, +S2 - GI/Abdominal Exam GI & Abdominal Exam: Normal Bowel Sounds Assessment and Plan (1) Thrombocytopenia Status: Chronic (2) Anemia Status: Acute
--- NOTE | 2018-09-06 21:17 | CP.PCM.PN ---
Subjective - Date & Time of Evaluation Date of Evaluation: 09/05/18 Time of Evaluation: 17:00 - Subjective Subjective: Appears comfortable Objective - Vital Signs/Intake and Output Vital Signs (last 24 hours): Temp Pulse Resp BP Pulse Ox 97.3 F L 80 23 157/58 H 95 09/06/18 16:00 09/06/18 20:52 09/06/18 18:00 09/06/18 20:52 09/06/18 18:00 Intake and Output: 09/06/18 09/07/18 18:59 06:59 Intake Total 900 Balance 900 - Medications Medications: Current Medications Acetaminophen (Tylenol 650mg/20.3ml Solution Ud) 650 mg PO Q4 PRN PRN Reason: Pain, moderate (4-7) Last Admin: 09/06/18 20:52 Dose: 650 mg Acetylcysteine (Acetylcysteine 20%) 2 ml INH RBID [facility] Last Admin: 09/06/18 19:32 Dose: Not Given Albuterol/Ipratropium (Duoneb 3 Mg/0.5 Mg (3 Ml) Ud) 3 ml INH RQ4 PRN PRN Reason: Shortness of Breath Last Admin: 09/06/18 16:43 Dose: 3 ml Albuterol/Ipratropium (Duoneb 3 Mg/0.5 Mg (3 Ml) Ud) 3 ml INH RQ4 [facility] Last Admin: 09/06/18 19:32 Dose: Not Given Anastrozole (Arimidex 1 Mg Tab) 1 mg PO DAILY [facility] Last Admin: 08/22/18 09:00 Dose: Not Given Calcium Acetate (Phoslo) 667 mg PO DAILY [facility] Last Admin: 08/22/18 10:00 Dose: Not Given Carvedilol (Coreg) 3.125 mg PO Q12 [facility] Last Admin: 09/06/18 20:52 Dose: 3.125 mg Diltiazem HCl (Cardizem) 30 mg PO BID [facility] Last Admin: 09/06/18 16:12 Dose: 30 mg Epoetin Theron (Procrit) 10,000 unit IV MWF [facility] Last Admin: 09/05/18 14:20 Dose: 10,000 unit Ergocalciferol (Drisdol 50,000 Intl Units Cap) 1 cap PO QWK [facility] Escitalopram Oxalate (Lexapro) 20 mg PO DAILY [facility] Insulin Detemir (Levemir) 5 units SC HS [facility] Insulin Human Lispro (Humalog) 10 units SC TIDAC [facility] Last Admin: 08/22/18 12:31 Dose: Not Given Insulin Human Regular (Humulin R) 0 units SC ACCU-CHECK [facility]; Protocol Last Admin: 09/06/18 16:47 Dose: 4 unit Lactulose (Enulose) 20 gm PO TID [facility] Last Admin: 08/25/18 08:24 Dose: 20 gm Lidocaine HCl (Lidocaine 2% Viscous) 15 ml PO Q8H PRN PRN Reason: dysphagia Last Admin: 08/29/18 18:50 Dose: 15 ml Losartan Potassium (Cozaar) 50 mg PO DAILY [facility] Metolazone (Zaroxolyn) 2.5 mg PO DAILY [facility] Nystatin (Nystop Topical Powder) 1 applic TOP TID [facility] Ondansetron HCl (Zofran Inj) 4 mg IVP Q6 PRN PRN Reason: Nausea/Vomiting Last Admin: 09/01/18 16:45 Dose: 4 mg Pantoprazole Sodium (Protonix Inj) 40 mg IVP DAILY [facility] Last Admin: 09/06/18 12:18 Dose: 40 mg Phenol/Menthol (Phenaseptic 1.4% Throat [place]) 1 spry MT Q2 PRN PRN Reason: Pain, Mild (1-3) Last Admin: 08/27/18 20:32 Dose: 1 spray Rifaximin (Xifaxan) 550 mg PO BID [facility]; Protocol Last Admin: 08/22/18 09:07 Dose: Not Given Saliva Substitute (First Magic Mouthwash) 5 ml PO TID [facility] Last Admin: 09/06/18 16:13 Dose: 5 ml Sitagliptin Phosphate (Januvia) 25 mg PO DAILY [facility] Last Admin: 09/03/18 08:52 Dose: 25 mg - Labs Labs: 09/06/18 06:00 09/06/18 06:00 PT 15.6 Seconds (9.8-13.1) H 09/02/18 04:41 INR 1.4 09/02/18 04:41 APTT 32.2 Seconds (25.6-37.1) 08/24/18 06:45 - Head Exam Head Exam: ATRAUMATIC - Eye Exam Eye Exam: Normal appearance - ENT Exam ENT Exam: Mucous Membranes Dry - Respiratory Exam Respiratory Exam: Decreased Breath Sounds - Cardiovascular Exam Cardiovascular Exam: +S1, +S2 - GI/Abdominal Exam GI & Abdominal Exam: Normal Bowel Sounds Assessment and Plan (1) Thrombocytopenia Assessment & Plan: liver cirrhosis exacerbated by acute illness transfuse if plt < 20,000 Status: Chronic (2) Anemia Assessment & Plan: renal disease hematuria transfusion support PRN Status: Acute
--- NOTE | 2018-09-06 21:59 | CP.PCM.PN ---
Subjective - Date & Time of Evaluation Date of Evaluation: 09/04/18 Time of Evaluation: 17:00 - Subjective Subjective: patient seen and examined at bedside. Interim events noted No complaints offered at this time denies cp/sob/fever/chills. available diagnostic data reviewed spoke with family at bedside Review of Systems All systems: reviewed and no additional remarkable complaints except mentioned above Objective Vital Signs Stable - Constitutional Appears: Non-toxic, No Acute Distress - Head Exam Head Exam: NORMAL INSPECTION - Eye Exam Eye Exam: Normal appearance - Respiratory Exam Respiratory Exam: NORMAL BREATHING PATTERN, decreased breath sounds - Cardiovascular Exam Cardiovascular Exam: +S1, +S2 - GI/Abdominal Exam GI & Abdominal Exam: soft - Psychiatric Exam Psychiatric exam: Normal Affect, Normal Mood - Skin Skin Exam: Normal Color, Warm Assessment and Plan monitor vitals monitor labs Cont meds Cont tx consultants appreciated input swallow eval needed rest of plan as ordered Assessment and Plan (1) Acute renal failure Status: Acute (2) CHF (congestive heart failure) Status: Acute (3) Pleural effusion Status: Acute (4) Thrombocytopenia Status: Chronic (5) Anemia Status: Acute (6) Physical debility Status: Acute (7) Cirrhosis Status: Chronic (8) DM2 (diabetes mellitus, type 2) Status: Chronic
[2018-09-07] MEDS: Albuterol-Ipratrop 3 mg / 0.5 (3 ml) UD INH SCH ×6 (04:27→23:16)
[2018-09-07 05:08] LABS: HEMOGLOBIN 9.9 g/dL (12.0-16.0); MEAN CELL VOLUME 104.8 fl (81.0-99.0); MEAN CORPUSCULAR HEMOGLOBIN 34.5 pg (27.0-31.0); MEAN CORPUSCULAR HGB CONC 32.9 g/dL (33.0-37.0); RBC 2.88 Mil/uL (3.80-5.20); RED CELL DISTRIBUTION WIDTH 21.1 % (11.5-14.5)
[2018-09-07 05:41] LABS: ALB/GLOB RATIO 0.9 (1.0-2.1); ALBUMIN 3.1 g/dL (3.5-5.0); CALCIUM 9.5 mg/dL (8.4-10.2)
[2018-09-07] MEDS: Insulin Regular 100 units/ml SC SCH ×3 (07:01→16:38)
[2018-09-07] MEDS: Acetylcysteine 20% Inhal Soln (4ml) INH SCH ×2 (07:08→19:47)
--- NOTE | 2018-09-07 07:57 | PN ---
DATE: 09/06/2018 FOLLOWUP RENAL CONSULTATION LOCATION: The patient is located in room 435, bed 1. REASON FOR FOLLOWUP: Acute renal failure and for continuation of hemodialysis. SUBJECTIVE: The patient is an 82-year-old elderly female with a history of longstanding hypertension, diabetes, AFib, pulmonary hypertension, tricuspid regurgitation, cirrhosis of the liver who was admitted on 08/04/2018 with cough, shortness of breath, and cough associated with yellow sputum. The patient was initially treated for pneumonia and CHF, status post thoracentesis x2. Her hospital course is complicated by acute renal failure, altered mental status, and anasarca requiring initiation of renal replacement therapy. The patient is on hemodialysis for the last 10 days. The patient is feeling much better. The patient is eager to go home, not in distress. PHYSICAL EXAMINATION: VITAL SIGNS: As follows: Blood pressure 137/62, pulse 81, respirations 23, temperature 97.3, saturation 95%. Height 4 feet 11 inches, weight is 134 pounds. GENERAL: The patient is an 82-year-old elderly female, moderately built, moderately nourished, not in distress, on nasal cannula. HEENT: Pupils are normal and reactive to light and accommodation. Conjunctivae pink. Sclerae anicteric. Tongue is moist. Trachea is midline. LUNGS: Symmetric on both sides. Bilateral breath sounds decreased, right more than the left. CARDIOVASCULAR SYSTEM: [place] at the fifth intercostal space, midclavicular line. S1 and S2 audible. Irregularly irregular. ABDOMEN: Normal in appearance. Soft, tympanitic. No guarding. No rigidity. No hepatosplenomegaly. CENTRAL NERVOUS SYSTEM: The patient is alert, awake, oriented times 2 to 3. Sensory and motor system within normal limits. EXTREMITIES: No cyanosis, no clubbing, no edema in the lower extremities. The patient has edema of both upper extremities. CURRENT MEDICATIONS: Include as follows: Mucomyst 2 mL inhaler b.i.d.; Arimidex 1 mg tablet p.o. daily; Cardizem 30 mg p.o. b.i.d.; Coreg 3.125 mg p.o. every 12 hours; lidocaine patch; also nystatin topical powder ; Epogen 10,000 units three times a week, Monday, Monday, Monday; Protonix 40 mg IV daily; Zofran 4 mg IV every 6 hours p.r.n. LABORATORY DATA: Include as follows: As of 09/06/2018, WBC 8, hemoglobin 9.6, hematocrit is 28.7, platelets 26. Sodium 136, potassium 4.3, chloride 97, CO2 of 27, BUN 39, creatinine is 2, glucose 271, calcium 8.8, total bili 1.9, AST 44, ALT 55, alkaline phosphatase 110, total protein 6.6, albumin is 3.3, procalcitonin 1.41. ASSESSMENT AND PLAN: In summary, the patient is an 82-year-old elderly female with a past medical history significant for longstanding hypertension, diabetes, pulmonary hypertension, tricuspid regurgitation, cirrhosis of the liver, anasarca with acute renal failure, on hemodialysis, and atrial fibrillation, status post extubation. 1. Oliguric acute renal failure. Continue hemodialysis, three times a week, Monday, Monday, Monday, and we will try to ultrafiltrate as much as patient can tolerate. 2. Bilateral pleural effusion. 3. Atrial fibrillation. 4. Hypertension. 5. Anemia. 6. Thrombocytopenia secondary to cirrhosis of the liver. Patient is scheduled for possible thoracentesis tomorrow. We will follow with you. Thank you for allowing me to participate in your patient's care. For hemodialysis in a.m. Continue her current medication, Cardizem, Coreg, Protonix, and Epogen. Overall, prognosis is guarded. Discussed with the patient's family at bedside. Lalita Stovall MD [email or web address]
[2018-09-07] MEDS: Mag&Al/Simet/Diphen/Lido 237 ML KIT PO SCH ×3 (08:46→16:39)
[2018-09-07] MEDS: Acetaminophen 650mg/20.3ml solution UD PO PRN (09:14)
--- NOTE | 2018-09-07 09:19 | CP.PCM.PN ---
Subjective - Date & Time of Evaluation Date of Evaluation: 09/07/18 Time of Evaluation: 09:19 - Subjective Subjective: pt is seen and examined, follow up consult is dictated #[id number] for hd today Objective - Vital Signs/Intake and Output Vital Signs (last 24 hours): Temp Pulse Resp BP Pulse Ox 97.7 F 98 H 28 H 145/68 94 L 09/07/18 09:09 09/07/18 09:09 09/07/18 09:09 09/07/18 09:09 09/07/18 08:47 Intake and Output: 09/07/18 09/07/18 06:59 18:59 Intake Total 900 5 Balance 900 5 - Medications Medications: Current Medications Acetaminophen (Tylenol 650mg/20.3ml Solution Ud) 650 mg PO Q4 PRN PRN Reason: Pain, moderate (4-7) Last Admin: 09/06/18 20:52 Dose: 650 mg Acetylcysteine (Acetylcysteine 20%) 2 ml INH RBID [facility] Last Admin: 09/07/18 07:08 Dose: 2 ml Albuterol/Ipratropium (Duoneb 3 Mg/0.5 Mg (3 Ml) Ud) 3 ml INH RQ4 PRN PRN Reason: Shortness of Breath Last Admin: 09/06/18 16:43 Dose: 3 ml Albuterol/Ipratropium (Duoneb 3 Mg/0.5 Mg (3 Ml) Ud) 3 ml INH RQ4 [facility] Last Admin: 09/07/18 07:07 Dose: 3 ml Anastrozole (Arimidex 1 Mg Tab) 1 mg PO DAILY [facility] Last Admin: 09/07/18 09:00 Dose: 1 mg Calcium Acetate (Phoslo) 667 mg PO DAILY [facility] Last Admin: 08/22/18 10:00 Dose: Not Given Carvedilol (Coreg) 3.125 mg PO Q12 [facility] Last Admin: 09/07/18 08:47 Dose: 3.125 mg Diltiazem HCl (Cardizem) 30 mg PO BID [facility] Last Admin: 09/07/18 08:47 Dose: 30 mg Epoetin Theron (Procrit) 10,000 unit IV MWF [facility] Last Admin: 09/05/18 14:20 Dose: 10,000 unit Ergocalciferol (Drisdol 50,000 Intl Units Cap) 1 cap PO QWK [facility] Escitalopram Oxalate (Lexapro) 20 mg PO DAILY [facility] Insulin Detemir (Levemir) 5 units SC HS [facility] Insulin Human Lispro (Humalog) 10 units SC TIDAC [facility] Last Admin: 08/22/18 12:31 Dose: Not Given Insulin Human Regular (Humulin R) 0 units SC ACCU-CHECK [facility]; Protocol Last Admin: 09/07/18 07:01 Dose: 3 unit Lactulose (Enulose) 20 gm PO TID [facility] Last Admin: 08/25/18 08:24 Dose: 20 gm Lidocaine HCl (Lidocaine 2% Viscous) 15 ml PO Q8H PRN PRN Reason: dysphagia Last Admin: 08/29/18 18:50 Dose: 15 ml Losartan Potassium (Cozaar) 50 mg PO DAILY [facility] Metolazone (Zaroxolyn) 2.5 mg PO DAILY [facility] Nystatin (Nystop Topical Powder) 1 applic TOP TID [facility] Last Admin: 09/07/18 08:47 Dose: 1 applic Ondansetron HCl (Zofran Inj) 4 mg IVP Q6 PRN PRN Reason: Nausea/Vomiting Last Admin: 09/01/18 16:45 Dose: 4 mg Pantoprazole Sodium (Protonix Inj) 40 mg IVP DAILY [facility] Last Admin: 09/07/18 08:47 Dose: 40 mg Phenol/Menthol (Phenaseptic 1.4% Throat [place]) 1 spry MT Q2 PRN PRN Reason: Pain, Mild (1-3) Last Admin: 08/27/18 20:32 Dose: 1 spray Rifaximin (Xifaxan) 550 mg PO BID [facility]; Protocol Last Admin: 08/22/18 09:07 Dose: Not Given Saliva Substitute (First Magic Mouthwash) 5 ml PO TID [facility] Last Admin: 09/07/18 08:46 Dose: 5 ml Sitagliptin Phosphate (Januvia) 25 mg PO DAILY [facility] Last Admin: 09/03/18 08:52 Dose: 25 mg - Labs Labs: 09/07/18 05:00 09/07/18 05:00 PT 15.6 Seconds (9.8-13.1) H 09/02/18 04:41 INR 1.4 09/02/18 04:41 APTT 32.2 Seconds (25.6-37.1) 08/24/18 06:45
--- NOTE | 2018-09-07 12:34 | CP.PCM.PN ---
Subjective - Date & Time of Evaluation Date of Evaluation: 09/07/18 Time of Evaluation: 08:00 - Subjective Subjective: still weak / bedridden for thoracentesis Objective - Vital Signs/Intake and Output Vital Signs (last 24 hours): Temp Pulse Resp BP Pulse Ox 99.9 F H 115 H 24 182/103 H 94 L 09/07/18 12:26 09/07/18 12:26 09/07/18 12:26 09/07/18 12:26 09/07/18 08:47 Intake and Output: 09/07/18 09/07/18 06:59 18:59 Intake Total 900 850 Balance 900 850 - Medications Medications: Current Medications Acetaminophen (Tylenol 650mg/20.3ml Solution Ud) 650 mg PO Q4 PRN PRN Reason: Pain, moderate (4-7) Last Admin: 09/07/18 09:14 Dose: 650 mg Acetylcysteine (Acetylcysteine 20%) 2 ml INH RBID [facility] Last Admin: 09/07/18 07:08 Dose: 2 ml Albuterol/Ipratropium (Duoneb 3 Mg/0.5 Mg (3 Ml) Ud) 3 ml INH RQ4 PRN PRN Reason: Shortness of Breath Last Admin: 09/06/18 16:43 Dose: 3 ml Albuterol/Ipratropium (Duoneb 3 Mg/0.5 Mg (3 Ml) Ud) 3 ml INH RQ4 [facility] Last Admin: 09/07/18 11:12 Dose: 3 ml Anastrozole (Arimidex 1 Mg Tab) 1 mg PO DAILY [facility] Last Admin: 09/07/18 09:00 Dose: 1 mg Calcium Acetate (Phoslo) 667 mg PO DAILY [facility] Last Admin: 08/22/18 10:00 Dose: Not Given Carvedilol (Coreg) 3.125 mg PO Q12 [facility] Last Admin: 09/07/18 08:47 Dose: 3.125 mg Diltiazem HCl (Cardizem) 30 mg PO BID [facility] Last Admin: 09/07/18 08:47 Dose: 30 mg Epoetin Theron (Procrit) 10,000 unit IV MWF [facility] Last Admin: 09/05/18 14:20 Dose: 10,000 unit Ergocalciferol (Drisdol 50,000 Intl Units Cap) 1 cap PO QWK [facility] Escitalopram Oxalate (Lexapro) 20 mg PO DAILY [facility] Insulin Detemir (Levemir) 5 units SC HS [facility] Insulin Human Lispro (Humalog) 10 units SC TIDAC [facility] Last Admin: 08/22/18 12:31 Dose: Not Given Insulin Human Regular (Humulin R) 0 units SC ACCU-CHECK [facility]; Protocol Last Admin: 09/07/18 07:01 Dose: 3 unit Lactulose (Enulose) 20 gm PO TID [facility] Last Admin: 08/25/18 08:24 Dose: 20 gm Lidocaine HCl (Lidocaine 2% Viscous) 15 ml PO Q8H PRN PRN Reason: dysphagia Last Admin: 08/29/18 18:50 Dose: 15 ml Losartan Potassium (Cozaar) 50 mg PO DAILY [facility] Metolazone (Zaroxolyn) 2.5 mg PO DAILY [facility] Nystatin (Nystop Topical Powder) 1 applic TOP TID [facility] Last Admin: 09/07/18 08:47 Dose: 1 applic Ondansetron HCl (Zofran Inj) 4 mg IVP Q6 PRN PRN Reason: Nausea/Vomiting Last Admin: 09/01/18 16:45 Dose: 4 mg Pantoprazole Sodium (Protonix Inj) 40 mg IVP DAILY [facility] Last Admin: 09/07/18 08:47 Dose: 40 mg Phenol/Menthol (Phenaseptic 1.4% Throat [place]) 1 spry MT Q2 PRN PRN Reason: Pain, Mild (1-3) Last Admin: 08/27/18 20:32 Dose: 1 spray Rifaximin (Xifaxan) 550 mg PO BID [facility]; Protocol Last Admin: 08/22/18 09:07 Dose: Not Given Saliva Substitute (First Magic Mouthwash) 5 ml PO TID [facility] Last Admin: 09/07/18 08:46 Dose: 5 ml Sitagliptin Phosphate (Januvia) 25 mg PO DAILY [facility] Last Admin: 09/03/18 08:52 Dose: 25 mg - Labs Labs: 09/07/18 05:00 09/07/18 05:00 PT 15.6 Seconds (9.8-13.1) H 09/02/18 04:41 INR 1.4 09/02/18 04:41 APTT 32.2 Seconds (25.6-37.1) 08/24/18 06:45 - Constitutional Appears: Confused, Cachectic, Chronically Ill - Head Exam Head Exam: NORMOCEPHALIC - Eye Exam Eye Exam: absent: Scleral icterus - ENT Exam ENT Exam: Mucous Membranes Dry - Neck Exam Neck Exam: absent: Lymphadenopathy - Respiratory Exam Respiratory Exam: Decreased Breath Sounds - Cardiovascular Exam Cardiovascular Exam: REGULAR RHYTHM - GI/Abdominal Exam GI & Abdominal Exam: Distended, Soft - Exam Exam: NORMAL INSPECTION - Extremities Exam Extremities Exam: Pedal Edema - Back Exam Back Exam: absent: CVA tenderness (L), CVA tenderness (R) - Neurological Exam Neurological Exam: Alert, Altered, Awake Assessment and Plan (1) CHF (congestive heart failure) Status: Acute (2) HCAP (healthcare-associated pneumonia) Status: Acute (3) Pleural effusion Status: Acute (4) Acute diastolic heart failure due to valvular disease Status: Acute (5) Acute dyspnea Status: Acute (6) Acute renal failure Status: Acute - Assessment and Plan (Free Text) Assessment: observe off antibiotics for now cont supportive care
[2018-09-07] MEDS ORDERED: Lidocaine 1% Inj (20ml) ONE (12:36)
--- NOTE | 2018-09-07 12:56 | CP.PCM.PN ---
Subjective - Date & Time of Evaluation Date of Evaluation: 09/07/18 Time of Evaluation: 12:55 - Subjective Subjective: PT SENT FOR THORACENTESES BECAUSE OF PERSISTENT/WORSENING R PLEURAL EFFUSION WILL SEND PLEURAL FLUID FOR ANALYSIS/CULTURES AND CYTOLOGY WILL CONTINUE CURRENT RX PROGNOSIS IS GUARDED Objective - Vital Signs/Intake and Output Vital Signs (last 24 hours): Temp Pulse Resp BP Pulse Ox 99.9 F H 115 H 24 182/103 H 94 L 09/07/18 12:26 09/07/18 12:26 09/07/18 12:26 09/07/18 12:26 09/07/18 08:47 Intake and Output: 09/07/18 09/07/18 06:59 18:59 Intake Total 900 850 Balance 900 850 - Medications Medications: Current Medications Acetaminophen (Tylenol 650mg/20.3ml Solution Ud) 650 mg PO Q4 PRN PRN Reason: Pain, moderate (4-7) Last Admin: 09/07/18 09:14 Dose: 650 mg Acetylcysteine (Acetylcysteine 20%) 2 ml INH RBID [facility] Last Admin: 09/07/18 07:08 Dose: 2 ml Albuterol/Ipratropium (Duoneb 3 Mg/0.5 Mg (3 Ml) Ud) 3 ml INH RQ4 PRN PRN Reason: Shortness of Breath Last Admin: 09/06/18 16:43 Dose: 3 ml Albuterol/Ipratropium (Duoneb 3 Mg/0.5 Mg (3 Ml) Ud) 3 ml INH RQ4 [facility] Last Admin: 09/07/18 11:12 Dose: 3 ml Anastrozole (Arimidex 1 Mg Tab) 1 mg PO DAILY [facility] Last Admin: 09/07/18 09:00 Dose: 1 mg Calcium Acetate (Phoslo) 667 mg PO DAILY [facility] Last Admin: 08/22/18 10:00 Dose: Not Given Carvedilol (Coreg) 3.125 mg PO Q12 [facility] Last Admin: 09/07/18 08:47 Dose: 3.125 mg Diltiazem HCl (Cardizem) 30 mg PO BID [facility] Last Admin: 09/07/18 08:47 Dose: 30 mg Epoetin Theron (Procrit) 10,000 unit IV MWF [facility] Last Admin: 09/05/18 14:20 Dose: 10,000 unit Ergocalciferol (Drisdol 50,000 Intl Units Cap) 1 cap PO QWK [facility] Escitalopram Oxalate (Lexapro) 20 mg PO DAILY [facility] Insulin Detemir (Levemir) 5 units SC HS [facility] Insulin Human Lispro (Humalog) 10 units SC TIDAC [facility] Last Admin: 08/22/18 12:31 Dose: Not Given Insulin Human Regular (Humulin R) 0 units SC ACCU-CHECK [facility]; Protocol Last Admin: 09/07/18 07:01 Dose: 3 unit Lactulose (Enulose) 20 gm PO TID [facility] Last Admin: 08/25/18 08:24 Dose: 20 gm Lidocaine HCl (Lidocaine 2% Viscous) 15 ml PO Q8H PRN PRN Reason: dysphagia Last Admin: 08/29/18 18:50 Dose: 15 ml Losartan Potassium (Cozaar) 50 mg PO DAILY [facility] Metolazone (Zaroxolyn) 2.5 mg PO DAILY [facility] Nystatin (Nystop Topical Powder) 1 applic TOP TID [facility] Last Admin: 09/07/18 08:47 Dose: 1 applic Ondansetron HCl (Zofran Inj) 4 mg IVP Q6 PRN PRN Reason: Nausea/Vomiting Last Admin: 09/01/18 16:45 Dose: 4 mg Pantoprazole Sodium (Protonix Inj) 40 mg IVP DAILY [facility] Last Admin: 09/07/18 08:47 Dose: 40 mg Phenol/Menthol (Phenaseptic 1.4% Throat [place]) 1 spry MT Q2 PRN PRN Reason: Pain, Mild (1-3) Last Admin: 08/27/18 20:32 Dose: 1 spray Rifaximin (Xifaxan) 550 mg PO BID [facility]; Protocol Last Admin: 08/22/18 09:07 Dose: Not Given Saliva Substitute (First Magic Mouthwash) 5 ml PO TID [facility] Last Admin: 09/07/18 08:46 Dose: 5 ml Sitagliptin Phosphate (Januvia) 25 mg PO DAILY [facility] Last Admin: 09/03/18 08:52 Dose: 25 mg - Labs Labs: 09/07/18 05:00 09/07/18 05:00 PT 15.6 Seconds (9.8-13.1) H 09/02/18 04:41 INR 1.4 09/02/18 04:41 APTT 32.2 Seconds (25.6-37.1) 08/24/18 06:45
--- NOTE | 2018-09-07 12:56 | PCM.SURG1 ---
Surgeon's Initial Post Op Note - Surgeon's Notes Surgeon: Erik Ramirez MD Professor Criminal Justice: NONE Type of Anesthesia: Local Pre-Operative Diagnosis: Right plerual effusion Operative Findings: US showed a large right pleural efffusion Post-Operative Diagnosis: Right pleural effusion Operation Performed: US guided right thoracentesis Specimen/Specimens Removed: 1060 cloudy pleural fluid Estimated Blood Loss: EBL {In ML}: 0 Blood Products Given: N/A Drains Used: No Drains Post-Op Condition: Fair Date of Surgery/Procedure: 09/07/18 Time of Surgery/Procedure: 12:50
--- NOTE | 2018-09-07 14:04 | RAD ---
Date of service: 09/07/2018 PROCEDURE: CHEST RADIOGRAPH, 1 VIEW HISTORY: Status post right thoracentesis Relevant interventional procedure(s): September 06, 2018 right thoracentesis with recovery of 1 L of fluid. COMPARISON: September 06, 2018 FINDINGS: LUNGS: Improved aeration of the right lung following thoracentesis. PLEURA: Small pneumothorax/pneumothorax ex vacuo following recovery of 1 L of fluid from the right pleural space. CARDIOVASCULAR: Persistent cardiomegaly. Underlying pulmonary vascular congestion. Atherosclerotic calcifications identified primarily aortic arch. Position/ configuration of pacemaker Venous access catheter in stable, satisfactory position. PICC line in satisfactory position OSSEOUS STRUCTURES: No significant abnormalities. VISUALIZED UPPER ABDOMEN: Feeding tube visualized. This courses through the esophagus into the stomach, the tip is not identified. OTHER FINDINGS: None. IMPRESSION: Improved aeration of the right lung following thoracentesis. Small pneumothorax ex vacuo. Underlying pulmonary vascular congestion. Stable support apparatus.
[2018-09-07 14:35] LABS: TOTAL PROTEIN,BODY FLUID < 2.0 g/dL (NONE ESTABLISHED)
[2018-09-07] MEDS ORDERED: Morphine 4 MG/ML VIAL ONE (18:25)
[2018-09-07] MEDS ORDERED: Dextrose 50% SYRINGE Inj (50 ml) ONE (19:50)
[2018-09-07] MEDS ORDERED: Chlorhexidine Gluconate 1 APPL/PKT TP ONE ×2 (20:39→22:42)
[2018-09-07 21:23] LABS: ABG ALLEN TEST YES; ARTERIAL BLOOD GAS HEMOGLOBIN 8.9 g/dL (11.7-17.4); ARTERIAL BLOOD GAS O2 CAPACITY 12.5 mL/dL (16-24); ARTERIAL BLOOD GAS O2 CONTENT 12.6 ML/dL (15-23); ARTERIAL BLOOD GAS PCO2 44 mm/Hg (35-45); ARTERIAL BLOOD GAS PH 7.39 (7.35-7.45); ARTERIAL BLOOD GAS PO2 178 mm/Hg (80-100)
--- NOTE | 2018-09-07 21:30 | CP.PCM.PN ---
Subjective - Date & Time of Evaluation Date of Evaluation: 09/07/18 Time of Evaluation: 10:00 - Subjective Subjective: s/p plt transfusion, for thoracentesis Objective - Vital Signs/Intake and Output Vital Signs (last 24 hours): Temp Pulse Resp BP Pulse Ox 98 F 93 H 29 H 130/46 L 94 L 09/07/18 12:45 09/07/18 21:23 09/07/18 16:40 09/07/18 21:23 09/07/18 16:40 Intake and Output: 09/07/18 09/08/18 18:59 06:59 Intake Total 1970 Balance 1969 - Medications Medications: Current Medications Acetaminophen (Tylenol 650mg/20.3ml Solution Ud) 650 mg PO Q4 PRN PRN Reason: Pain, moderate (4-7) Last Admin: 09/07/18 09:14 Dose: 650 mg Acetylcysteine (Acetylcysteine 20%) 2 ml INH RBID [facility] Last Admin: 09/07/18 19:47 Dose: Not Given Albuterol/Ipratropium (Duoneb 3 Mg/0.5 Mg (3 Ml) Ud) 3 ml INH RQ4 PRN PRN Reason: Shortness of Breath Last Admin: 09/06/18 16:43 Dose: 3 ml Albuterol/Ipratropium (Duoneb 3 Mg/0.5 Mg (3 Ml) Ud) 3 ml INH RQ4 [facility] Last Admin: 09/07/18 19:47 Dose: Not Given Anastrozole (Arimidex 1 Mg Tab) 1 mg PO DAILY [facility] Last Admin: 09/07/18 09:00 Dose: 1 mg Calcium Acetate (Phoslo) 667 mg PO DAILY [facility] Last Admin: 08/22/18 10:00 Dose: Not Given Carvedilol (Coreg) 3.125 mg PO Q12 [facility] Last Admin: 09/07/18 21:23 Dose: Not Given Diltiazem HCl (Cardizem) 30 mg PO BID [facility] Last Admin: 09/07/18 16:40 Dose: Not Given Epoetin Theron (Procrit) 10,000 unit IV MWF [facility] Last Admin: 09/05/18 14:20 Dose: 10,000 unit Ergocalciferol (Drisdol 50,000 Intl Units Cap) 1 cap PO QWK [facility] Escitalopram Oxalate (Lexapro) 20 mg PO DAILY [facility] Insulin Detemir (Levemir) 5 units SC HS [facility] Insulin Human Lispro (Humalog) 10 units SC TIDAC [facility] Last Admin: 08/22/18 12:31 Dose: Not Given Insulin Human Regular (Humulin R) 0 units SC ACCU-CHECK [facility]; Protocol Last Admin: 09/07/18 16:38 Dose: 3 unit Lactulose (Enulose) 20 gm PO TID [facility] Last Admin: 08/25/18 08:24 Dose: 20 gm Lidocaine HCl (Lidocaine 2% Viscous) 15 ml PO Q8H PRN PRN Reason: dysphagia Last Admin: 08/29/18 18:50 Dose: 15 ml Losartan Potassium (Cozaar) 50 mg PO DAILY [facility] Metolazone (Zaroxolyn) 2.5 mg PO DAILY [facility] Morphine Sulfate (Morphine) 2 mg IVP Q4 PRN PRN Reason: Agitation Last Admin: 09/07/18 18:27 Dose: 2 mg Nystatin (Nystop Topical Powder) 1 applic TOP TID [facility] Last Admin: 09/07/18 16:38 Dose: 1 applic Ondansetron HCl (Zofran Inj) 4 mg IVP Q6 PRN PRN Reason: Nausea/Vomiting Last Admin: 09/01/18 16:45 Dose: 4 mg Pantoprazole Sodium (Protonix Inj) 40 mg IVP DAILY [facility] Last Admin: 09/07/18 08:47 Dose: 40 mg Rifaximin (Xifaxan) 550 mg PO BID [facility]; Protocol Last Admin: 08/22/18 09:07 Dose: Not Given Saliva Substitute (First Magic Mouthwash) 5 ml PO TID [facility] Last Admin: 09/07/18 16:39 Dose: 5 ml Sitagliptin Phosphate (Januvia) 25 mg PO DAILY [facility] Last Admin: 09/03/18 08:52 Dose: 25 mg - Labs Labs: 09/07/18 05:00 09/07/18 05:00 PT 15.6 Seconds (9.8-13.1) H 09/02/18 04:41 INR 1.4 09/02/18 04:41 APTT 32.2 Seconds (25.6-37.1) 08/24/18 06:45 - Head Exam Head Exam: ATRAUMATIC - Eye Exam Eye Exam: Normal appearance - ENT Exam ENT Exam: Mucous Membranes Dry - Respiratory Exam Respiratory Exam: Decreased Breath Sounds - Cardiovascular Exam Cardiovascular Exam: +S1, +S2 - GI/Abdominal Exam GI & Abdominal Exam: Normal Bowel Sounds Assessment and Plan (1) Thrombocytopenia Assessment & Plan: liver cirrhosis exacerbated by acute illness transfuse if plt < 20,000 Status: Chronic (2) Anemia Assessment & Plan: renal disease hematuria transfusion support PRN Status: Acute
--- NOTE | 2018-09-08 00:50 | PN ---
DATE: 09/07/2018 FOLLOWUP RENAL CONSULTATION LOCATION: The patient is located in room 435, bed 1. REQUESTED BY: Chintan Wayne MD REASON FOR FOLLOWUP: Acute renal failure, continuation of hemodialysis. SUBJECTIVE: Mrs. Sheth is an 82-year-old elderly female with past medical history significant for longstanding hypertension, diabetes, pulmonary hypertension, tricuspid regurgitation, cirrhosis of the liver, bilateral pleural effusion, multiple thoracentesis, and acute renal failure on hemodialysis for the last two weeks. The patient also found to have worsening bilateral effusion and scheduled for thoracentesis today. The patient is not in distress. The patient is slightly confused. PHYSICAL EXAMINATION: As follows: VITAL SIGNS: This morning blood pressure 150/86, pulse 90, respirations 19, temperature 97.7. Height 4 feet 11 inches and weight is 127 pounds. GENERAL: Mrs. Sheth is an 82-year-old elderly female moderately built, moderately nourished, not in acute distress. HEENT: Pupils are normal, reacting to light and accommodation. Conjunctivae pink. Sclerae anicteric. Tongue moist. Trachea is midline. LUNGS: Symmetric on both sides. Bilateral breath sounds present, decreased at bases, right more than the left. CARDIOVASCULAR SYSTEM: [place] at the fifth intercostal space and midclavicular line. S1 and S2 audible. Irregularly irregular. ABDOMEN: Normal in appearance. Soft, tympanitic. No guarding. No rigidity. No hepatosplenomegaly. CENTRAL NERVOUS SYSTEM: The patient is alert, awake. Sensory and motor system within normal limits. EXTREMITIES: No cyanosis. No clubbing. No edema in the lower extremities. The patient has edema of both upper extremities. CURRENT MEDICATIONS: Include as follows: Acetylcysteine 20% 2 mL inhaler b.i.d., Arimidex 1 mg p.o. daily, Cardizem 30 mg p.o. b.i.d., Coreg 3.125 mg every 12 hours on hold, losartan is on hold, also lidocaine viscous 15 mL p.o. every 8 hours, morphine sulfate 2 mg IV every 4 hours, Procrit 10,000 units three times a week, and Zofran 4 mg IV every 6 hours p.r.n. LABORATORY DATA: Include as follows: As of 09/07/2018, WBC 8, hemoglobin 9.9, hematocrit is 30.1, and manual platelet is 40. Sodium 136, potassium 4, chloride 97, CO2 of 30, BUN 51, creatinine 2.3, and glucose is 248, calcium 9.5, total bili 1.7. AST 40, ALT 56, alkaline phosphatase 113, total protein is 6.6, albumin is 3.1. Pleural fluid total protein is less than 2 grams and LDH is 303. ASSESSMENT AND PLAN: In summary, Mrs. Sheth is an 82-year-old elderly female with a history of hypertension, diabetes, pulmonary hypertension, tricuspid regurgitation, cirrhosis of the liver, bilateral pleural effusion, status post thoracentesis x2, thrombocytopenia, anemia, acute renal failure on hemodialysis three times a week, Monday, Monday, Monday. Scheduled for thoracentesis this afternoon. Underwent thoracentesis and drained about 1060 mL cloudy pleural fluid from the right lung. 1. Acute renal failure, oliguric. Continue hemodialysis three times a week as tolerated on Monday, Monday, Monday. 2. Atrial fibrillation. 3. Anemia. 4. Thrombocytopenia, most likely secondary to cirrhosis of the liver. 5. Continue to follow with Hematology. The patient is being transfused platelet this morning. Overall prognosis is poor. We will follow with you. Thank you for allowing me to participate in your patient's care. Lalita Stovall MD
[2018-09-08] MEDS: Insulin Regular 100 units/ml SC SCH ×5 (01:53→22:00)
[2018-09-08] MEDS: Albuterol-Ipratrop 3 mg / 0.5 (3 ml) UD INH SCH ×5 (04:34→19:41)
[2018-09-08 04:45] LABS: ABG ALLEN TEST YES; ARTERIAL BLOOD GAS HCO3 25.6 mmol/L (21-28); ARTERIAL BLOOD GAS HEMOGLOBIN 9.3 g/dL (11.7-17.4); ARTERIAL BLOOD GAS O2 CAPACITY 13.1 mL/dL (16-24); ARTERIAL BLOOD GAS O2 CONTENT 13.2 ML/dL (15-23); ARTERIAL BLOOD GAS O2 SAT 100.6 % (95-98); ARTERIAL BLOOD GAS PCO2 47 mm/Hg (35-45); ARTERIAL BLOOD GAS PH 7.36 (7.35-7.45); ARTERIAL BLOOD GAS PO2 199 mm/Hg (80-100)
[2018-09-08 06:47] LABS: HEMOGLOBIN 8.4 g/dL (12.0-16.0); MEAN CORPUSCULAR HEMOGLOBIN 34.8 pg (27.0-31.0); MEAN CORPUSCULAR HGB CONC 33.2 g/dL (33.0-37.0); RBC 2.41 Mil/uL (3.80-5.20); RED CELL DISTRIBUTION WIDTH 20.5 % (11.5-14.5); WHITE BLOOD COUNT 8.3 K/uL (4.8-10.8)
[2018-09-08 07:15] LABS: ALB/GLOB RATIO 0.9 (1.0-2.1); ALBUMIN 2.9 g/dL (3.5-5.0)
[2018-09-08 07:26] LABS: CALCIUM 9.3 mg/dL (8.4-10.2)
[2018-09-08] MEDS: Acetylcysteine 20% Inhal Soln (4ml) INH SCH ×2 (08:04→19:41)
[2018-09-08] MEDS: Mag&Al/Simet/Diphen/Lido 237 ML KIT PO SCH ×3 (08:49→16:57)
--- NOTE | 2018-09-08 09:22 | CP.CCUPN ---
CCU Subjective - Physician Review Subjective (Free Text): Events overnight noted with Code Blue being called, but CPR / ACLS not initiated due to family at the bedside calling it off, and requested DNR DNI. Discussed with all family members this AM including eldest son and 2 daughters. They state patient becomes very anxious and "nervous" over initiation of HD, and this repeat Code Blue event occurred approx 45 mins into the HD session which was aborted. Upper airway secretions and rhonchorous breathing was noted and this may have contributed to desaturation and bradyarrythmia. Family now requests to rescind DNI request and affirms that DNR status would be acceptable for no CPR, no defibrillation should cardiac arrest occur. They want all other measures be instituted including need for MV support if necessary. Afebrile, no fever spikes last 24H, HR 90 A Fib, RR 22, on nasal cannula, SPO2 94%. BP at approx. 100systolic. ROS: No other pertinent negs or positives on 10+ system review. PMSFH: All other Nursing and physician documentation reviewed to date; no new pertinent info noted relevant to current medical problems. EXAM- HEENT: no icterus, no gaze preference NECK: No JVD visible, supple, carotids equal upstroke bilat/no bruit. CHEST: decreased BS at the bases, especially R base; no wheezes audible bilaterally. HEART: irregular, distant, S1S2, no rubs or murmurs noted ABD: soft, nontender, no guarding, no organomegaly, BS hypoactive EXT: +1 leg edema, no calf tenderness or palpable cords, distal pulses faint but symmetrical. LUE PICC NEURO: withdraws to pain, + tone in all extremities. SKIN: no rashes, warm and dry LABS: WBC= 8.3 HGB= 8.4 PLTs= 27K 7.36/47/199 on 100% NRBM. Na= 132 K= 4.3 CL= 96 HCO3= 27 BUN/Cr= 49/2.3 BS= 309 IMPRESSION / MAJOR PROBLEMS NOW: 1. Acute resp insuff 2 Pleural effusion ( r/o parapneumonic / pneumonia pr ocess) and s/p R Thoracentesis x3 2. s/p Hypotension / Shock 2 Hypovolemia / antiHTN meds-Diuretics. 3. s/p Metabolic Encephalopathy (Azotemia, Hyperammonemia), r/o Toxic Drug effect (Lexapro) 4. s/p Hyponatremia 2 Hypovolemia / Diuretics 5. s/p Abdominal Wall Hematoma 6. Chronic A fib with controlled VR, PPM, on no AC. PLAN: 1. Monitor for need for MV support for secretion clearance and pulmonary toilet. 2. Replace Crane catheter fo strict I/O monitoring. HD sessions appear to cause much psychologic anxiety and agitation for the patient, that is not relieved by narcotics. Anxiolytic BZDPs have been avoided due to concern over excessive sedative effects. Nephro to decide to resume an HD session today over missed session from yesterday. If urine output is acceptable as measured now by Crane or inducible by diuretics, could hold on HD for today and avoid using sedative which will impact on respiratory status. 3. Watch HR - Chronic A Fib VR response: Cardizem and Coreg recently reduced due to low BP levels. 4. Keep NPO, ongoing enteral tube feeds. 5. If R pleural effusions significantly recurr again, consider chest tube drainage and pleurodesis.
[2018-09-08] MEDS ORDERED: Chlorhexidine Gluconate 1 APPL/PKT TP ONE (09:42)
--- NOTE | 2018-09-08 10:54 | CP.PCM.PN ---
Subjective - Date & Time of Evaluation Date of Evaluation: 09/08/18 Time of Evaluation: 10:55 - Subjective Subjective: S/P R THORACENTESES YESTERDAY AWAKE BUT SOMEWHAT CONFUSED DAUGHTER AT BEDSIDE Objective - Vital Signs/Intake and Output Vital Signs (last 24 hours): Temp Pulse Resp BP Pulse Ox 97.4 F L 95 H 27 H 99/57 L 100 09/08/18 08:00 09/08/18 08:00 09/08/18 08:00 09/08/18 08:00 09/08/18 08:00 Intake and Output: 09/08/18 09/08/18 06:59 18:59 Intake Total 100 Output Total 1 Balance 99 - Medications Medications: Current Medications Acetaminophen (Tylenol 650mg/20.3ml Solution Ud) 650 mg PO Q4 PRN PRN Reason: Pain, moderate (4-7) Last Admin: 09/07/18 09:14 Dose: 650 mg Acetylcysteine (Acetylcysteine 20%) 2 ml INH RBID [facility] Last Admin: 09/08/18 08:04 Dose: 2 ml Albuterol/Ipratropium (Duoneb 3 Mg/0.5 Mg (3 Ml) Ud) 3 ml INH RQ4 PRN PRN Reason: Shortness of Breath Last Admin: 09/06/18 16:43 Dose: 3 ml Albuterol/Ipratropium (Duoneb 3 Mg/0.5 Mg (3 Ml) Ud) 3 ml INH RQ4 [facility] Last Admin: 09/08/18 08:04 Dose: 3 ml Anastrozole (Arimidex 1 Mg Tab) 1 mg PO DAILY [facility] Last Admin: 09/08/18 08:50 Dose: 1 mg Calcium Acetate (Phoslo) 667 mg PO DAILY [facility] Last Admin: 08/22/18 10:00 Dose: Not Given Carvedilol (Coreg) 3.125 mg PO Q12 [facility] Last Admin: 09/07/18 21:23 Dose: Not Given Diltiazem HCl (Cardizem) 30 mg PO BID [facility] Last Admin: 09/07/18 16:40 Dose: Not Given Epoetin Theron (Procrit) 10,000 unit IV MWF [facility] Last Admin: 09/05/18 14:20 Dose: 10,000 unit Ergocalciferol (Drisdol 50,000 Intl Units Cap) 1 cap PO QWK [facility] Escitalopram Oxalate (Lexapro) 20 mg PO DAILY [facility] Famotidine (Pepcid) 20 mg NG DAILY [facility] Insulin Detemir (Levemir) 5 units SC HS [facility] Insulin Human Lispro (Humalog) 10 units SC TIDAC [facility] Last Admin: 08/22/18 12:31 Dose: Not Given Insulin Human Regular (Humulin R) 0 units SC ACCU-CHECK [facility]; Protocol Last Admin: 09/08/18 08:51 Dose: 3 unit Lactulose (Enulose) 20 gm PO TID [facility] Last Admin: 08/25/18 08:24 Dose: 20 gm Lidocaine HCl (Lidocaine 2% Viscous) 15 ml PO Q8H PRN PRN Reason: dysphagia Last Admin: 08/29/18 18:50 Dose: 15 ml Losartan Potassium (Cozaar) 50 mg PO DAILY [facility] Metolazone (Zaroxolyn) 2.5 mg PO DAILY [facility] Morphine Sulfate (Morphine) 2 mg IVP Q4 PRN PRN Reason: Agitation Last Admin: 09/07/18 18:27 Dose: 2 mg Nystatin (Nystop Topical Powder) 1 applic TOP TID [facility] Last Admin: 09/08/18 08:53 Dose: 1 applic Ondansetron HCl (Zofran Inj) 4 mg IVP Q6 PRN PRN Reason: Nausea/Vomiting Last Admin: 09/01/18 16:45 Dose: 4 mg Rifaximin (Xifaxan) 550 mg PO BID [facility]; Protocol Last Admin: 08/22/18 09:07 Dose: Not Given Saliva Substitute (First Magic Mouthwash) 5 ml PO TID [facility] Last Admin: 09/08/18 08:49 Dose: 5 ml Sitagliptin Phosphate (Januvia) 25 mg PO DAILY [facility] Last Admin: 09/03/18 08:52 Dose: 25 mg - Labs Labs: 09/08/18 05:30 09/08/18 05:30 PT 15.6 Seconds (9.8-13.1) H 09/02/18 04:41 INR 1.4 09/02/18 04:41 APTT 32.2 Seconds (25.6-37.1) 08/24/18 06:45 - Constitutional Appears: Chronically Ill - Head Exam Head Exam: ATRAUMATIC, NORMAL INSPECTION, NORMOCEPHALIC - Eye Exam Eye Exam: EOMI, Normal appearance, PERRL Pupil Exam: NORMAL ACCOMODATION, PERRL - ENT Exam ENT Exam: Mucous Membranes Moist, Normal Exam - Neck Exam Neck Exam: Full ROM, Normal Inspection. absent: Lymphadenopathy - Respiratory Exam Respiratory Exam: Decreased Breath Sounds, Prolonged Expiratory Phase, Rales, NORMAL BREATHING PATTERN - Cardiovascular Exam Cardiovascular Exam: REGULAR RHYTHM, +S1, +S2. absent: Murmur - GI/Abdominal Exam GI & Abdominal Exam: Soft, Normal Bowel Sounds. absent: Tenderness - Rectal Exam Rectal Exam: NORMAL INSPECTION - Extremities Exam Extremities Exam: Full ROM, Normal Capillary Refill, Normal Inspection. absent: Joint Swelling, Pedal Edema - Back Exam Back Exam: NORMAL INSPECTION - Neurological Exam Neurological Exam: Alert, Awake, CN II-XII Intact - Skin Skin Exam: Dry, Intact, Normal Color, Warm Assessment and Plan - Assessment and Plan (Free Text) Assessment: PLEURAL EFFUSION RESPIRATORY FAILURE VALVULAR HEART DZ CHF RENAL FAILURE Plan: CONTINUE CURRENT RX PROGNOSIS IS POOR
--- NOTE | 2018-09-08 12:25 | RAD ---
HISTORY: Kangaroo feeding tube placement COMPARISON: Chest x-ray performed 09/07/18 TECHNIQUE: Chest, one view. FINDINGS: Numerous external wires and leads obscure evaluation of the underlying parenchyma. Right-sided pacemaker pack. Right IJ approach central venous catheter and left-sided PICC, presumably terminating at the cavoatrial junction however obscured. Feeding tube extends to the expected location of the stomach. LUNGS: Small to moderate right and small left pleural effusions and associated consolidations. Moderate pulmonary venous congestion. Previously demonstrated right-sided pneumothorax not appreciated on this examination. CARDIOVASCULAR: Mild cardiomegaly. Ectatic aorta with dense atherosclerotic calcifications. OSSEOUS STRUCTURES: Osseous demineralization. Degenerative changes. VISUALIZED UPPER ABDOMEN: Unremarkable. OTHER FINDINGS: None. IMPRESSION: Right-sided pacemaker pack. Right IJ approach central venous catheter and left-sided PICC, presumably terminating at the cavoatrial junction however obscured. Feeding tube extends to the expected location of the stomach. Small to moderate right and small left pleural effusions and associated consolidations. Moderate pulmonary venous congestion. Previously demonstrated right-sided pneumothorax not appreciated on this examination. Mild cardiomegaly. Ectatic aorta with dense atherosclerotic calcifications.
--- NOTE | 2018-09-08 14:04 | CP.PCM.PN ---
Subjective - Date & Time of Evaluation Date of Evaluation: 09/08/18 Time of Evaluation: 14:04 - Subjective Subjective: pt is seen and examined, follow up consult is dictated #[id number] Objective - Vital Signs/Intake and Output Vital Signs (last 24 hours): Temp Pulse Resp BP Pulse Ox 97.4 F L 93 H 17 126/57 L 100 09/08/18 08:00 09/08/18 12:00 09/08/18 12:00 09/08/18 12:00 09/08/18 12:00 Intake and Output: 09/08/18 09/08/18 06:59 18:59 Intake Total 100 270 Output Total 1 Balance 99 270 - Medications Medications: Current Medications Acetaminophen (Tylenol 650mg/20.3ml Solution Ud) 650 mg PO Q4 PRN PRN Reason: Pain, moderate (4-7) Last Admin: 09/07/18 09:14 Dose: 650 mg Acetylcysteine (Acetylcysteine 20%) 2 ml INH RBID [facility] Last Admin: 09/08/18 08:04 Dose: 2 ml Albuterol/Ipratropium (Duoneb 3 Mg/0.5 Mg (3 Ml) Ud) 3 ml INH RQ4 PRN PRN Reason: Shortness of Breath Last Admin: 09/06/18 16:43 Dose: 3 ml Albuterol/Ipratropium (Duoneb 3 Mg/0.5 Mg (3 Ml) Ud) 3 ml INH RQ4 [facility] Last Admin: 09/08/18 12:39 Dose: 3 ml Anastrozole (Arimidex 1 Mg Tab) 1 mg PO DAILY [facility] Last Admin: 09/08/18 08:50 Dose: 1 mg Calcium Acetate (Phoslo) 667 mg PO DAILY [facility] Last Admin: 08/22/18 10:00 Dose: Not Given Carvedilol (Coreg) 3.125 mg PO Q12 [facility] Last Admin: 09/07/18 21:23 Dose: Not Given Diltiazem HCl (Cardizem) 30 mg PO BID [facility] Last Admin: 09/08/18 09:00 Dose: Not Given Epoetin Theron (Procrit) 10,000 unit IV MWF [facility] Last Admin: 09/05/18 14:20 Dose: 10,000 unit Ergocalciferol (Drisdol 50,000 Intl Units Cap) 1 cap PO QWK [facility] Escitalopram Oxalate (Lexapro) 20 mg PO DAILY [facility] Famotidine (Pepcid) 20 mg NG DAILY [facility] Insulin Detemir (Levemir) 5 units SC HS [facility] Insulin Human Lispro (Humalog) 10 units SC TIDAC [facility] Last Admin: 08/22/18 12:31 Dose: Not Given Insulin Human Regular (Humulin R) 0 units SC ACCU-CHECK [facility]; Protocol Last Admin: 09/08/18 12:00 Dose: 2 unit Lactulose (Enulose) 20 gm PO TID [facility] Last Admin: 08/25/18 08:24 Dose: 20 gm Lidocaine HCl (Lidocaine 2% Viscous) 15 ml PO Q8H PRN PRN Reason: dysphagia Last Admin: 08/29/18 18:50 Dose: 15 ml Losartan Potassium (Cozaar) 50 mg PO DAILY [facility] Metolazone (Zaroxolyn) 2.5 mg PO DAILY [facility] Morphine Sulfate (Morphine) 2 mg IVP Q4 PRN PRN Reason: Agitation Last Admin: 09/07/18 18:27 Dose: 2 mg Nystatin (Nystop Topical Powder) 1 applic TOP TID [facility] Last Admin: 09/08/18 13:15 Dose: 1 applic Ondansetron HCl (Zofran Inj) 4 mg IVP Q6 PRN PRN Reason: Nausea/Vomiting Last Admin: 09/01/18 16:45 Dose: 4 mg Rifaximin (Xifaxan) 550 mg PO BID [facility]; Protocol Last Admin: 08/22/18 09:07 Dose: Not Given Saliva Substitute (First Magic Mouthwash) 5 ml PO TID [facility] Last Admin: 09/08/18 13:09 Dose: 5 ml Sitagliptin Phosphate (Januvia) 25 mg PO DAILY [facility] Last Admin: 09/03/18 08:52 Dose: 25 mg - Labs Labs: 09/08/18 05:30 09/08/18 05:30 PT 15.6 Seconds (9.8-13.1) H 09/02/18 04:41 INR 1.4 09/02/18 04:41 APTT 32.2 Seconds (25.6-37.1) 08/24/18 06:45
[2018-09-08] MEDS: Insulin Detemir 100 Units/ml Inj SC SCH (21:27)
[2018-09-09] MEDS: Albuterol-Ipratrop 3 mg / 0.5 (3 ml) UD INH SCH ×7 (00:07→23:58)
[2018-09-09 02:31] LABS: URINE BILIRUBIN NEGATIVE (NEGATIVE); URINE BLOOD SMALL (NEGATIVE); URINE CLARITY Hazy (Clear); URINE COLOR YELLOW (YELLOW); URINE GLUCOSE (UA) NEGATIVE (NEGATIVE); URINE PROTEIN 100 mg/dL (NEGATIVE); URINE UROBILINOGEN 0.2 mg/dL (0.2-1.0)
[2018-09-09 02:32] LABS: URINE LEUKOCYTE ESTERASE NEGATIVE Leu/uL (Negative)
[2018-09-09 02:33] LABS: URINE AMORPHOUS SEDIMENT FEW /ul (<OCC)
--- NOTE | 2018-09-09 03:07 | PN ---
DATE: 09/08/2018 LOCATION: The patient is located in room 435, bed 1. REQUESTED BY: Chintan Wayne MD REASON FOR RENAL CONSULTATION: Acute renal failure, for continuation of hemodialysis. SUBJECTIVE: Mrs. Sheth is an 82-year-old elderly female with past medical history significant for longstanding hypertension, diabetes, AFib, pulmonary hypertension, tricuspid regurgitation, cirrhosis of the liver, thrombocytopenia, bilateral pleural effusion, multiple thoracentesis, and is on hemodialysis for the last two weeks and the patient went into bradycardia and unresponsive during hemodialysis and hemodialysis was discontinued after 40 minutes. The patient is back to normal condition and the blood pressure is under control. The patient was very anxious during dialysis as per the registered nurse; the patient is not in distress. PHYSICAL EXAMINATION: VITAL SIGNS: This morning as follows blood pressure 118/57, pulse 90, respirations 17, saturation 100%, and temperature 97.4. Height 4 feet 11 inches and weight is 136 pounds. GENERAL: Mrs. Sheth is an 82-year-old elderly female moderately built, moderately nourished, not in acute distress. HEENT: Pupils are normal, reacting to light and accommodation. Conjunctivae pink. Sclerae anicteric. Tongue moist. Trachea is midline. LUNGS: Symmetric on both sides. Bilateral decreased breath sounds present and basal crackles present. CARDIOVASCULAR SYSTEM: [place] at the fifth intercostal space and midclavicular line. S1 and S2 audible. Irregularly irregular. ABDOMEN: Normal in appearance. Soft, tympanitic. No guarding. No rigidity. No hepatosplenomegaly. CENTRAL NERVOUS SYSTEM: The patient is awake, following simple commands. EXTREMITIES: No cyanosis. No clubbing. No edema in the lower extremities. The patient has bilateral edema of the upper extremities present. CURRENT MEDICATIONS: Include as follows: Acetylcysteine 2 mL b.i.d., Arimidex 1 mg p.o. daily, diltiazem 30 mg p.o. b.i.d., Coreg 3.125 mg p.o. every 12 hours, First Magic Mouthwash 5 mL p.o. t.i.d., Levemir 5 units subcu at bedtime, and morphine sulfate 2 mg IV every 4 hours p.r.n., Pepcid 20 mg daily, Procrit 10,000 units three times Monday, Monday, and Monday, Zaroxolyn 2.5 mg p.o. daily, and Zofran 4 mg IV every 6 hours p.r.n. LABORATORY DATA: Include as follows: As of 09/08/2018, WBC 8.3, hemoglobin 8.4, hematocrit is 25.3, and platelet 27. ABG; pH 7.36 and pCO2 47, pO2 199, and bicarb is 25.6, saturation 100% and FiO2 of 100%. Sodium 132, potassium 4.3, chloride 96, CO2 of 27, BUN 49, creatinine 2.3, and glucose is 319, calcium 9.3. Total bili 1.4. AST 32, ALT 35, alkaline phosphatase 85, total protein is 6.3, albumin is 2.9. ASSESSMENT: In summary, Mrs. Sheth is an 82-year-old elderly female with a history of hypertension, diabetes, atrial fibrillation, pulmonary hypertension, tricuspid regurgitation, cirrhosis of the liver, anemia, thrombocytopenia; acute renal failure, on hemodialysis three times a week; status post bradycardia and unresponsiveness during dialysis yesterday and hemodialysis was discontinued after 40 minutes. 1. Oliguric acute renal failure. 2. Atrial fibrillation. 3. Cirrhosis of the liver. 4. Anemia. 5. Thrombocytopenia. 6. Bilateral pleural effusion, status post thoracentesis yesterday on the right side. PLAN: Continuing Zaroxolyn. Continue all her current medications and will hold hemodialysis for today and will reevaluate on Monday. Discussed with the patient's son at bedside. We will follow with you. Thank you for allowing me to participate in your patient's care. Lalita Stovall MD
[2018-09-09 06:40] LABS: HEMOGLOBIN 8.6 g/dL (12.0-16.0); MEAN CORPUSCULAR HEMOGLOBIN 34.3 pg (27.0-31.0); MEAN CORPUSCULAR HGB CONC 32.2 g/dL (33.0-37.0); RBC 2.5 Mil/uL (3.80-5.20); RED CELL DISTRIBUTION WIDTH 21.4 % (11.5-14.5); WHITE BLOOD COUNT 8.6 K/uL (4.8-10.8)
[2018-09-09 06:49] LABS: ALB/GLOB RATIO 0.9 (1.0-2.1); ALBUMIN 2.9 g/dL (3.5-5.0); CALCIUM 9.6 mg/dL (8.4-10.2); MEAN CELL VOLUME 106.6 fl (81.0-99.0)
[2018-09-09] MEDS: Insulin Regular 100 units/ml SC SCH ×4 (07:27→22:19)
[2018-09-09] MEDS: Acetylcysteine 20% Inhal Soln (4ml) INH SCH ×2 (07:32→19:40)
[2018-09-09] MEDS: Mag&Al/Simet/Diphen/Lido 237 ML KIT PO SCH ×3 (09:16→16:46)
[2018-09-09] MEDS: metOLazone 2.5 MG TAB PO SCH (09:17)
[2018-09-09] MEDS: Famotidine 40 MG/5 ML NG SCH (12:14)
--- NOTE | 2018-09-09 12:20 | CP.PCM.PN ---
Subjective - Date & Time of Evaluation Date of Evaluation: 09/08/18 Time of Evaluation: 14:00 Assessment and Plan (1) Acute renal failure Status: Acute (2) CHF (congestive heart failure) Status: Acute (3) Pleural effusion Status: Acute (4) Thrombocytopenia Status: Chronic (5) Anemia Status: Acute (6) Physical debility Status: Acute (7) Cirrhosis Status: Chronic (8) DM2 (diabetes mellitus, type 2) Status: Chronic
--- NOTE | 2018-09-09 12:21 | CP.PCM.PN ---
Subjective - Date & Time of Evaluation Date of Evaluation: 09/09/18 Time of Evaluation: 12:20 Assessment and Plan (1) Acute renal failure Status: Acute (2) CHF (congestive heart failure) Status: Acute (3) Pleural effusion Status: Acute (4) Thrombocytopenia Status: Chronic (5) Anemia Status: Acute (6) Physical debility Status: Acute (7) Cirrhosis Status: Chronic (8) DM2 (diabetes mellitus, type 2) Status: Chronic
--- NOTE | 2018-09-09 15:18 | CP.PCM.PN ---
Subjective - Date & Time of Evaluation Date of Evaluation: 09/09/18 Time of Evaluation: 15:17 - Subjective Subjective: pt is seen and examined, follow up consult is dictated #[id number] Objective - Vital Signs/Intake and Output Vital Signs (last 24 hours): Temp Pulse Resp BP Pulse Ox 98.8 F 82 25 H 128/62 100 09/09/18 12:00 09/09/18 12:00 09/09/18 12:00 09/09/18 12:00 09/09/18 12:00 Intake and Output: 09/09/18 09/09/18 06:59 18:59 Intake Total 850 500 Output Total 50 65 Balance 800 435 - Medications Medications: Current Medications Acetaminophen (Tylenol 650mg/20.3ml Solution Ud) 650 mg PO Q4 PRN PRN Reason: Pain, moderate (4-7) Last Admin: 09/07/18 09:14 Dose: 650 mg Acetylcysteine (Acetylcysteine 20%) 2 ml INH RBID [facility] Last Admin: 09/09/18 07:32 Dose: 2 ml Albuterol/Ipratropium (Duoneb 3 Mg/0.5 Mg (3 Ml) Ud) 3 ml INH RQ4 PRN PRN Reason: Shortness of Breath Last Admin: 09/06/18 16:43 Dose: 3 ml Albuterol/Ipratropium (Duoneb 3 Mg/0.5 Mg (3 Ml) Ud) 3 ml INH RQ4 [facility] Last Admin: 09/09/18 11:22 Dose: 3 ml Anastrozole (Arimidex 1 Mg Tab) 1 mg PO DAILY [facility] Last Admin: 09/08/18 08:50 Dose: 1 mg Calcium Acetate (Phoslo) 667 mg PO DAILY [facility] Last Admin: 08/22/18 10:00 Dose: Not Given Carvedilol (Coreg) 3.125 mg PO Q12 [facility] Last Admin: 09/09/18 09:17 Dose: 3.125 mg Diltiazem HCl (Cardizem) 30 mg PO BID [facility] Last Admin: 09/09/18 09:17 Dose: 30 mg Epoetin Theron (Procrit) 10,000 unit IV MWF [facility] Last Admin: 09/05/18 14:20 Dose: 10,000 unit Ergocalciferol (Drisdol 50,000 Intl Units Cap) 1 cap PO QWK [facility] Escitalopram Oxalate (Lexapro) 20 mg PO DAILY [facility] Famotidine (Pepcid) 20 mg NG DAILY [facility] Last Admin: 09/09/18 12:14 Dose: 20 mg Insulin Detemir (Levemir) 5 units SC HS [facility] Last Admin: 09/08/18 21:27 Dose: 5 units Insulin Human Lispro (Humalog) 10 units SC TIDAC [facility] Last Admin: 08/22/18 12:31 Dose: Not Given Insulin Human Regular (Humulin R) 0 units SC ACCU-CHECK [facility]; Protocol Last Admin: 09/09/18 12:13 Dose: 3 unit Lactulose (Enulose) 20 gm PO TID [facility] Last Admin: 08/25/18 08:24 Dose: 20 gm Lidocaine HCl (Lidocaine 2% Viscous) 15 ml PO Q8H PRN PRN Reason: dysphagia Last Admin: 08/29/18 18:50 Dose: 15 ml Losartan Potassium (Cozaar) 50 mg PO DAILY [facility] Metolazone (Zaroxolyn) 2.5 mg PO DAILY [facility] Last Admin: 09/09/18 09:17 Dose: 2.5 mg Morphine Sulfate (Morphine) 2 mg IVP Q4 PRN PRN Reason: Agitation Last Admin: 09/07/18 18:27 Dose: 2 mg Nystatin (Nystop Topical Powder) 1 applic TOP TID [facility] Last Admin: 09/09/18 09:18 Dose: 1 applic Ondansetron HCl (Zofran Inj) 4 mg IVP Q6 PRN PRN Reason: Nausea/Vomiting Last Admin: 09/01/18 16:45 Dose: 4 mg Rifaximin (Xifaxan) 550 mg PO BID [facility]; Protocol Last Admin: 08/22/18 09:07 Dose: Not Given Saliva Substitute (First Magic Mouthwash) 5 ml PO TID [facility] Last Admin: 09/09/18 09:16 Dose: 5 ml Sitagliptin Phosphate (Januvia) 25 mg PO DAILY [facility] Last Admin: 09/03/18 08:52 Dose: 25 mg - Labs Labs: 09/09/18 05:42 09/09/18 05:42 PT 15.6 Seconds (9.8-13.1) H 09/02/18 04:41 INR 1.4 09/02/18 04:41 APTT 32.2 Seconds (25.6-37.1) 08/24/18 06:45
--- NOTE | 2018-09-09 16:46 | CP.CCUPN ---
CCU Subjective - Physician Review Events Since Last Encounter (Free Text): 09/09/18 16:42 patient looks very weak, with labored breathing. CCU Objective - Vital Signs / Intake & Output Vital Signs (Last 4 hours): Vital Signs Temp Pulse Resp BP Pulse Ox 09/09/18 16:00 98.3 F 111 H 32 H 140/66 96 09/09/18 14:00 94 H 36 H 135/73 100 Intake and Output (Last 8hrs): Intake & Output 09/09/18 09/09/18 09/09/18 06:59 14:59 22:59 Intake Total 500 600 200 Output Total 50 65 Balance 450 535 200 Weight 135 lb 6.4 oz Intake: Tube Feeding 400 400 100 Free Water Flush 100 200 100 Output: Urine 50 65 Urethral (Gomez) 50 65 Other: # Bowel Movements 1 - Physical Exam Head: Positive for: Atraumatic, Normocephalic Pupils: Positive for: PERRL Conjunctiva: Positive for: Normal Ears: Positive for: Normal Mouth: Positive for: Moist Mucous Membranes Nose (External): Positive for: Atraumatic Neck: Positive for: Normal Range of Motion Respiratory/Chest: Positive for: Rhonchi Cardiovascular: Positive for: Irregular Rhythm Abdomen: Positive for: Normal Bowel Sounds Upper Extremity: Positive for: Normal Inspection Lower Extremity: Positive for: Normal Inspection Neurological: Positive for: Other (lethergic) - Medications Active Medications: Active Medications Generic Name Dose Route Start Last Admin Trade Name Freq PRN Reason Stop Dose Admin Acetaminophen 650 mg 09/01/18 07:06 09/07/18 09:14 Tylenol 650mg/20.3ml Solution Ud PO 650 mg Q4 PRN Administration Pain, moderate (4-7) Acetylcysteine 2 ml 09/06/18 20:00 09/09/18 07:32 Acetylcysteine 20% INH 2 ml RBID [facility]ATE[facility] Administration Albuterol/Ipratropium 3 ml 09/05/18 01:59 09/06/18 16:43 Duoneb 3 Mg/0.5 Mg (3 Ml) Ud INH 3 ml RQ4 PRN Administration Shortness of Breath Albuterol/Ipratropium 3 ml 09/06/18 17:30 09/09/18 15:29 Duoneb 3 Mg/0.5 Mg (3 Ml) Ud INH 3 ml RQ4 [facility]ATE[facility] Administration Anastrozole 1 mg 08/22/18 09:00 09/08/18 08:50 Arimidex 1 Mg Tab PO 1 mg DAILY [facility] Administration Calcium Acetate 667 mg 08/22/18 09:00 08/22/18 10:00 Phoslo PO Not Given DAILY [facility] Carvedilol 3.125 mg 09/05/18 21:00 09/09/18 09:17 Coreg PO 3.125 mg Q12 [facility] Administration Diltiazem HCl 30 mg 09/05/18 17:00 09/09/18 09:17 Cardizem PO 30 mg BID [facility] Administration Epoetin Theron 10,000 unit 08/27/18 09:00 09/05/18 14:20 Procrit IV 10,000 unit MWF [facility] Administration Ergocalciferol 1 cap 08/22/18 00:16 Drisdol 50,000 Intl Units Cap PO QWK [facility] Escitalopram Oxalate 20 mg 08/22/18 09:00 Lexapro PO DAILY [facility] Famotidine 20 mg 09/09/18 09:00 09/09/18 12:14 Pepcid NG 20 mg DAILY [facility] Administration Insulin Detemir 5 units 09/06/18 22:00 09/08/18 21:27 Levemir SC 5 units HS [facility] Administration Insulin Human Lispro 10 units 08/22/18 07:30 08/22/18 12:31 Humalog SC Not Given TIDAC [facility] Insulin Human Regular 0 units 08/22/18 23:00 09/09/18 12:13 Humulin R SC 3 unit ACCU-CHECK [facility] Administration Protocol Lactulose 20 gm 08/22/18 09:00 08/25/18 08:24 Enulose PO 20 gm TID [facility] Administration Lidocaine HCl 15 ml 08/26/18 14:01 08/29/18 18:50 Lidocaine 2% Viscous PO 15 ml Q8H PRN Administration dysphagia Losartan Potassium 50 mg 08/22/18 09:00 Cozaar PO DAILY [facility] Metolazone 2.5 mg 08/22/18 09:00 09/09/18 09:17 Zaroxolyn PO 2.5 mg DAILY [facility] Administration Morphine Sulfate 2 mg 09/07/18 18:06 09/07/18 18:27 Morphine IVP 2 mg Q4 PRN Administration Agitation Nystatin 1 applic 09/07/18 09:00 09/09/18 09:18 Nystop Topical Powder TOP 1 applic TID [facility] Administration Ondansetron HCl 4 mg 09/01/18 16:25 09/01/18 16:45 Zofran Inj IVP 4 mg Q6 PRN Administration Nausea/Vomiting Rifaximin 550 mg 08/22/18 09:00 08/22/18 09:07 Xifaxan PO Not Given BID [facility] Protocol Saliva Substitute 5 ml 08/28/18 13:00 09/09/18 09:16 First Magic Mouthwash PO 5 ml TID [facility] Administration Sitagliptin Phosphate 25 mg 08/22/18 09:00 09/03/18 08:52 Januvia PO 25 mg DAILY [facility] Administration - Patient Studies Lab Studies: Microbiology Studies 09/07/18 13:30 Gram Stain - Final Body Fluid - Pleural Fluid Body Fluid Culture - Preliminary NO GROWTH AFTER 2 DAYS Lab Studies 09/09/18 09/09/18 09/09/18 Range/Units 16:37 11:54 06:15 WBC (4.8-10.8) K/uL RBC (3.80-5.20) Mil/uL Hgb (12.0-16.0) g/dL Hct (34.0-47.0) % MCV (81.0-99.0) fl MCH (27.0-31.0) pg MCHC (33.0-37.0) g/dL RDW (11.5-14.5) % Plt Count (130-400) K/uL Sodium (132-148) mmol/l Potassium (3.6-5.0) MMOL/L Chloride (98-107) mmol/L Carbon Dioxide (22-30) mmol/L Anion Gap (10-20) BUN (7-17) mg/dl Creatinine (0.7-1.2) mg/dl Est GFR ( Amer) Est GFR (Non-Af Amer) POC Glucose (mg/dL) 288 H 273 H 293 H (65-110) mg/dL Random Glucose (65-105) mg/dL Calcium (8.4-10.2) mg/dL Total Bilirubin (0.2-1.3) mg/dl AST (14-36) U/L ALT (9-52) U/L Alkaline Phosphatase (38-126) U/L Total Protein (6.3-8.2) G/DL Albumin (3.5-5.0) g/dL Globulin (2.2-3.9) gm/dL Albumin/Globulin Ratio (1.0-2.1) Urine Color (YELLOW) Urine Clarity (Clear) Urine pH (5.0-8.0) Ur Specific [place] (1.003-1.030) Urine Protein (NEGATIVE) mg/dL Urine Glucose (UA) (NEGATIVE) mg/dL Urine Ketones (NEGATIVE) mg/dL Urine Blood (NEGATIVE) Urine Nitrate (NEGATIVE) Urine Bilirubin (NEGATIVE) Urine Urobilinogen (0.2-1.0) mg/dL Ur Leukocyte Esterase (Negative) Gerald/uL Urine RBC (Auto) (0-3) /hpf Urine Microscopic WBC (0-5) /hpf Amorphous Sediment (<OCC) /ul Urine Yeast (Budding) (NEGATIVE) /hpf 09/09/18 09/09/18 09/08/18 Range/Units 05:42 05:42 21:25 WBC 8.6 (4.8-10.8) K/uL RBC 2.50 L (3.80-5.20) Mil/uL Hgb 8.6 L (12.0-16.0) g/dL Hct 26.7 L (34.0-47.0) % MCV 106.6 H (81.0-99.0) fl MCH 34.3 H (27.0-31.0) pg MCHC 32.2 L (33.0-37.0) g/dL RDW 21.4 H (11.5-14.5) % Plt Count 40 L (130-400) K/uL Sodium 137 (132-148) mmol/l Potassium 4.0 (3.6-5.0) MMOL/L Chloride 94 L (98-107) mmol/L Carbon Dioxide 28 (22-30) mmol/L Anion Gap 19 (10-20) BUN 67 H (7-17) mg/dl Creatinine 2.7 H (0.7-1.2) mg/dl Est GFR ( Amer) 20 Est GFR (Non-Af Amer) 17 POC Glucose (mg/dL) 304 H (65-110) mg/dL Random Glucose 279 H (65-105) mg/dL Calcium 9.6 (8.4-10.2) mg/dL Total Bilirubin 1.4 H (0.2-1.3) mg/dl AST 37 H (14-36) U/L ALT 53 H D (9-52) U/L Alkaline Phosphatase 91 (38-126) U/L Total Protein 6.2 L (6.3-8.2) G/DL Albumin 2.9 L (3.5-5.0) g/dL Globulin 3.3 (2.2-3.9) gm/dL Albumin/Globulin Ratio 0.9 L (1.0-2.1) Urine Color (YELLOW) Urine Clarity (Clear) Urine pH (5.0-8.0) Ur Specific [place] (1.003-1.030) Urine Protein (NEGATIVE) mg/dL Urine Glucose (UA) (NEGATIVE) mg/dL Urine Ketones (NEGATIVE) mg/dL Urine Blood (NEGATIVE) Urine Nitrate (NEGATIVE) Urine Bilirubin (NEGATIVE) Urine Urobilinogen (0.2-1.0) mg/dL Ur Leukocyte Esterase (Negative) Gerald/uL Urine RBC (Auto) (0-3) /hpf Urine Microscopic WBC (0-5) /hpf Amorphous Sediment (<OCC) /ul Urine Yeast (Budding) (NEGATIVE) /hpf 09/08/18 09/08/18 Range/Units 21:00 16:53 WBC (4.8-10.8) K/uL RBC (3.80-5.20) Mil/uL Hgb (12.0-16.0) g/dL Hct (34.0-47.0) % MCV (81.0-99.0) fl MCH (27.0-31.0) pg MCHC (33.0-37.0) g/dL RDW (11.5-14.5) % Plt Count (130-400) K/uL Sodium (132-148) mmol/l Potassium (3.6-5.0) MMOL/L Chloride (98-107) mmol/L Carbon Dioxide (22-30) mmol/L Anion Gap (10-20) BUN (7-17) mg/dl Creatinine (0.7-1.2) mg/dl Est GFR ( Amer) Est GFR (Non-Af Amer) POC Glucose (mg/dL) 286 H (65-110) mg/dL Random Glucose (65-105) mg/dL Calcium (8.4-10.2) mg/dL Total Bilirubin (0.2-1.3) mg/dl AST (14-36) U/L ALT (9-52) U/L Alkaline Phosphatase (38-126) U/L Total Protein (6.3-8.2) G/DL Albumin (3.5-5.0) g/dL Globulin (2.2-3.9) gm/dL Albumin/Globulin Ratio (1.0-2.1) Urine Color Yellow (YELLOW) Urine Clarity Hazy (Clear) Urine pH 6.0 (5.0-8.0) Ur Specific [place] 1.020 (1.003-1.030) Urine Protein 100 (NEGATIVE) mg/dL Urine Glucose (UA) Negative (NEGATIVE) mg/dL Urine Ketones Negative (NEGATIVE) mg/dL Urine Blood Small (NEGATIVE) Urine Nitrate Negative (NEGATIVE) Urine Bilirubin Negative (NEGATIVE) Urine Urobilinogen 0.2 (0.2-1.0) mg/dL Ur Leukocyte Esterase Negative (Negative) Gerald/uL Urine RBC (Auto) 4 H (0-3) /hpf Urine Microscopic WBC 3 (0-5) /hpf Amorphous Sediment Few H (<OCC) /ul Urine Yeast (Budding) Rare H (NEGATIVE) /hpf Laboratory Results - last 24 hr 09/08/18 09/08/18 09/08/18 16:53 21:00 21:25 WBC RBC Hgb Hct MCV MCH MCHC RDW Plt Count Sodium Potassium Chloride Carbon Dioxide Anion Gap BUN Creatinine Est GFR ( Amer) Est GFR (Non-Af Amer) POC Glucose (mg/dL) 286 H 304 H Random Glucose Calcium Total Bilirubin AST ALT Alkaline Phosphatase Total Protein Albumin Globulin Albumin/Globulin Ratio Urine Color Yellow Urine Clarity Hazy Urine pH 6.0 Ur Specific [place] 1.020 Urine Protein 100 Urine Glucose (UA) Negative Urine Ketones Negative Urine Blood Small Urine Nitrate Negative Urine Bilirubin Negative Urine Urobilinogen 0.2 Ur Leukocyte Esterase Negative Urine RBC (Auto) 4 H Urine Microscopic WBC 3 Amorphous Sediment Few H Urine Yeast (Budding) Rare H 09/09/18 09/09/18 09/09/18 05:42 05:42 06:15 WBC 8.6 RBC 2.50 L Hgb 8.6 L Hct 26.7 L MCV 106.6 H MCH 34.3 H MCHC 32.2 L RDW 21.4 H Plt Count 40 L Sodium 137 Potassium 4.0 Chloride 94 L Carbon Dioxide 28 Anion Gap 19 BUN 67 H Creatinine 2.7 H Est GFR ( Amer) 20 Est GFR (Non-Af Amer) 17 POC Glucose (mg/dL) 293 H Random Glucose 279 H Calcium 9.6 Total Bilirubin 1.4 H AST 37 H ALT 53 H D Alkaline Phosphatase 91 Total Protein 6.2 L Albumin 2.9 L Globulin 3.3 Albumin/Globulin Ratio 0.9 L Urine Color Urine Clarity Urine pH Ur Specific [place] Urine Protein Urine Glucose (UA) Urine Ketones Urine Blood Urine Nitrate Urine Bilirubin Urine Urobilinogen Ur Leukocyte Esterase Urine RBC (Auto) Urine Microscopic WBC Amorphous Sediment Urine Yeast (Budding) 09/09/18 09/09/18 11:54 16:37 WBC RBC Hgb Hct MCV MCH MCHC RDW Plt Count Sodium Potassium Chloride Carbon Dioxide Anion Gap BUN Creatinine Est GFR ( Amer) Est GFR (Non-Af Amer) POC Glucose (mg/dL) 273 H 288 H Random Glucose Calcium Total Bilirubin AST ALT Alkaline Phosphatase Total Protein Albumin Globulin Albumin/Globulin Ratio Urine Color Urine Clarity Urine pH Ur Specific [place] Urine Protein Urine Glucose (UA) Urine Ketones Urine Blood Urine Nitrate Urine Bilirubin Urine Urobilinogen Ur Leukocyte Esterase Urine RBC (Auto) Urine Microscopic WBC Amorphous Sediment Urine Yeast (Budding) Fingerstick Blood Sugar Results: 273 Review of Systems - Review of Systems Systems not reviewed;Unavailable: Respiratory Distress Assessment/Plan (1) CHF (congestive heart failure) Assessment and plan: 82yo F. PPM, Afib, CHF, HTN, COPD, hypothyroidism, hyperlipidemia, DM type 2. admitted for acute exacerbation of CHF, course has worsened to cardiorenal failure, two cardiac arrests. Neuro: patient is barely alert secondary to hypercarbia. Lexapro for depression. Arimidex Pulm: acute respiratory failure with hypercapnea, started on BIPAP CV: hemodynamically stable. Afib rate controlled carvedilol and diltiazem. HTN on Losartan. CHF on losartan and metolazone. Hem: anemia of chronic disease on procrit. Renal: ESRD on HD, not tolerating dialysis, she has severe bradycardia. Endo: DM type 2, RISS for coverage, lispro 10 units with meals, levemir 5 units qhs and Auguvia. GI: tube feeding with Nepro. ID: no acute issues DVT proph - held with current thrombocytopenia GI proph - pepcid gomez for strict I/O's during acute illness Code status - DNR only Patient has high mortality risk. She is in multi organ failure and cannot tolerate dialysis with worsening cardiorenal disease. Son is not accepting of this situation. Daughters may be more accepting. Critical Care time spent 70 minutes Multi-disciplinary rounds were performed with house staff, nursing, speech therapy, respiratory therapy, pharmacy and nutrition with integrated input from the primary team/attending and other consulting services. The documented time is cumulative and includes review of patient data/exams/labs/chart review and examination of the patient on rounds and throughout the day; time is exclusive of any procedures or teaching time. Current Visit: Yes Status: Acute Priority: High
[2018-09-09] MEDS: Acetaminophen 650mg/20.3ml solution UD PO PRN (20:57)
[2018-09-09] MEDS: Insulin Detemir 100 Units/ml Inj SC SCH (21:05)
[2018-09-10] MEDS: Albuterol-Ipratrop 3 mg / 0.5 (3 ml) UD INH SCH ×6 (03:30→23:35)
[2018-09-10] MEDS ORDERED: Chlorhexidine Gluconate 1 APPL/PKT TP ONE (03:34)
--- NOTE | 2018-09-10 04:09 | PN ---
DATE: 09/09/2018 LOCATION: The patient is located in ICU, room 435, bed 1. REQUESTED BY: Chintan Wayne MD REASON FOR FOLLOWUP: Acute renal failure and for continuation of hemodialysis. SUBJECTIVE: Mrs. Sheth is an 82-year-old elderly female with past medical history significant for hypertension, diabetes, atrial fibrillation, pulmonary hypertension, tricuspid regurgitation, cirrhosis of the liver who was admitted on 08/04/2018 with cough, shortness of breath, status post vent for pneumonia and CHF, status post thoracentesis x3 since admission. Her hospital course was complicated by acute renal failure, requiring initiation of the hemodialysis. The patient is on hemodialysis three times a week for the last 2 weeks, status post bradycardia and unresponsiveness during dialysis, and also the patient is very anxious during dialysis. The patient is not in acute distress on nasal cannula. PHYSICAL EXAMINATION: VITAL SIGNS: As follows: Blood pressure 140/66, pulse 89, respirations about 30, temperature 98.3, and saturation 99%. Height 4 feet 11 inches and weight is 135 pounds. GENERAL: Mrs. Sheth is an 82-year-old elderly female, moderately built, moderately nourished, not in acute distress. HEENT: Pupils are normal and reactive to light and accommodation. Conjunctivae pink. Sclerae anicteric. Tongue is moist. Trachea is midline. LUNGS: Symmetric on both sides. Bilateral breath sounds present. Bilateral basal crackles present, right more than the left. CARDIOVASCULAR SYSTEM: Anna at the fifth intercostal space, midclavicular line. S1 and S2 audible. Irregularly irregular. ABDOMEN: Normal in appearance. Soft, tympanitic. No guarding. No rigidity. No hepatosplenomegaly. CENTRAL NERVOUS SYSTEM: The patient is awake, following commands, oriented x2. EXTREMITIES: No cyanosis. No clubbing. No edema. CURRENT MEDICATIONS: Include as follows: Acetylcysteine inhaler b.i.d., Arimidex 1 mg p.o. daily, Cardizem 30 mg p.o. b.i.d., Coreg 3.125 mg every 12 hours, First Magic Mouthwash 5 mL p.o. t.i.d., Levemir 5 units subcu at bedtime, Lidoderm 2% viscous 15 mL p.o. every 8 hours, morphine sulfate 2 mg IV every 4 hours, Pepcid 20 mg by NG tube daily, Procrit 10,000 units three times a week, metaxalone 2.5 mg p.o. daily, and Zofran 4 mg IV every 6 hours p.r.n. LABORATORY DATA: Include as follows: As of 09/09/2018, WBC 8.6, hemoglobin 8.6, hematocrit is 26.7, MCV 106, and platelet 40. Sodium 137, potassium 4, chloride 94, CO2 of 28, BUN 67, creatinine 2.7, glucose is 279, calcium 9.6. Total bili 1.4. AST 37, ALT 53, alkaline phosphatase 91, total protein is 6.2, and albumin is 2.9. ASSESSMENT: In summary, Mrs. Sheth is an 82-year-old elderly female with a history of hypertension, diabetes, atrial fibrillation, pulmonary hypertension, tricuspid regurgitation moderate to severe, cirrhosis of the liver, acute renal failure, on hemodialysis three times a week. 1. Acute renal failure, oliguric. Continue hemodialysis as per the patient's family wishes. The patient's family want dialysis on Monday. 2. Atrial fibrillation. 3. Anemia. 4. Thrombocytopenia. PLAN: We will check CBC, BMP in a.m. We will follow with you. Continue her current medications. Thank you for allowing me to participate in your patient's care. Lalita Stovall MD
[2018-09-10 05:53] LABS: HEMOGLOBIN 8.6 g/dL (12.0-16.0); MEAN CELL VOLUME 106.6 fl (81.0-99.0); MEAN CORPUSCULAR HEMOGLOBIN 34.4 pg (27.0-31.0); MEAN CORPUSCULAR HGB CONC 32.3 g/dL (33.0-37.0); RBC 2.49 Mil/uL (3.80-5.20); RED CELL DISTRIBUTION WIDTH 21.6 % (11.5-14.5); WHITE BLOOD COUNT 7.1 K/uL (4.8-10.8)
[2018-09-10 06:15] LABS: ALB/GLOB RATIO 0.8 (1.0-2.1); ALBUMIN 2.7 g/dL (3.5-5.0); CALCIUM 9.7 mg/dL (8.4-10.2)
[2018-09-10] MEDS: Acetylcysteine 20% Inhal Soln (4ml) INH SCH ×2 (07:55→19:21)
--- NOTE | 2018-09-10 07:59 | RAD ---
Date of service: 09/10/2018 HISTORY: pleural effusion COMPARISON: Portable chest 09/08/2018. FINDINGS: LUNGS: Right central venous dialysis catheter unchanged in position as well as left PICC. Pacemaker reiterated as well as feeding tube. Right pleural effusion increased. No definite left pleural effusion. Underlying airspace disease right base not excluded. None is seen at the left. PLEURA: As above. CARDIOVASCULAR: Calcific atherosclerotic changes are seen related to the thoracic aorta. Stable cardiomegaly. No pulmonary vascular congestion. OSSEOUS STRUCTURES: No significant abnormalities. VISUALIZED UPPER ABDOMEN: Normal. OTHER FINDINGS: None. IMPRESSION: Increased right pleural effusion with underlying right basilar airspace disease not excluded. Stable cardiomegaly. No pulmonary vascular congestion.
[2018-09-10] MEDS: Mag&Al/Simet/Diphen/Lido 237 ML KIT PO SCH ×3 (08:34→16:17)
[2018-09-10] MEDS: metOLazone 2.5 MG TAB PO SCH (08:35)
[2018-09-10] MEDS: Famotidine 40 MG/5 ML NG SCH (08:35)
--- NOTE | 2018-09-10 09:11 | CP.PCM.PN ---
Subjective - Date & Time of Evaluation Date of Evaluation: 09/10/18 Time of Evaluation: 09:12 - Subjective Subjective: DYSPNEIC AT REST EASILY AROUSABLE DAUGHTER AT BEDSIDE REQUESTING FOR AGGRESSIVE INTERVENTION DESPITE FAMILY REQUESTING DNR EARLIER CASE WAS DISCUSSED WITH DR BELTRAN YESTERDAY AND CHEST TUBE/PLEUREX CATHETER PLACEMENT MAY BE INDICATED FOR DRAINAGE OF PLEURAL EFFUSION PLEURODESES TO BE DISCUSSED WITH SURGICAL TEAM LUNGS-DULLNESS OVER BOTH LUNG [place]--R>L CXR-WORSENING PLEURAL EFFUSIONS PROGNOSIS IS EXTREMELY GUARDED Objective - Vital Signs/Intake and Output Vital Signs (last 24 hours): Temp Pulse Resp BP Pulse Ox 97.7 F 98 H 32 H 135/63 100 09/10/18 08:00 09/10/18 08:34 09/10/18 08:00 09/10/18 08:34 09/10/18 08:00 Intake and Output: 09/10/18 09/10/18 06:59 18:59 Intake Total 600 Output Total 40 Balance 560 - Medications Medications: Current Medications Acetaminophen (Tylenol 650mg/20.3ml Solution Ud) 650 mg PO Q4 PRN PRN Reason: Pain, moderate (4-7) Last Admin: 09/09/18 20:57 Dose: 650 mg Acetylcysteine (Acetylcysteine 20%) 2 ml INH RBID [facility] Last Admin: 09/10/18 07:55 Dose: 2 ml Albuterol/Ipratropium (Duoneb 3 Mg/0.5 Mg (3 Ml) Ud) 3 ml INH RQ4 PRN PRN Reason: Shortness of Breath Last Admin: 09/06/18 16:43 Dose: 3 ml Albuterol/Ipratropium (Duoneb 3 Mg/0.5 Mg (3 Ml) Ud) 3 ml INH RQ4 [facility] Last Admin: 09/10/18 07:55 Dose: 3 ml Anastrozole (Arimidex 1 Mg Tab) 1 mg PO DAILY [facility] Last Admin: 09/10/18 08:29 Dose: 1 mg Calcium Acetate (Phoslo) 667 mg PO DAILY [facility] Last Admin: 08/22/18 10:00 Dose: Not Given Carvedilol (Coreg) 3.125 mg PO Q12 [facility] Last Admin: 09/10/18 08:34 Dose: 3.125 mg Diltiazem HCl (Cardizem) 30 mg PO BID [facility] Last Admin: 09/10/18 08:33 Dose: 30 mg Epoetin Theron (Procrit) 10,000 unit IV MWF [facility] Last Admin: 09/05/18 14:20 Dose: 10,000 unit Ergocalciferol (Drisdol 50,000 Intl Units Cap) 1 cap PO QWK [facility] Escitalopram Oxalate (Lexapro) 20 mg PO DAILY [facility] Famotidine (Pepcid) 20 mg NG DAILY [facility] Last Admin: 09/10/18 08:35 Dose: 20 mg Insulin Detemir (Levemir) 5 units SC HS [facility] Last Admin: 09/09/18 21:05 Dose: 5 units Insulin Human Lispro (Humalog) 10 units SC TIDAC [facility] Last Admin: 08/22/18 12:31 Dose: Not Given Insulin Human Regular (Humulin R) 0 units SC ACCU-CHECK [facility]; Protocol Last Admin: 09/09/18 22:19 Dose: 3 unit Lactulose (Enulose) 20 gm PO TID [facility] Last Admin: 08/25/18 08:24 Dose: 20 gm Lidocaine HCl (Lidocaine 2% Viscous) 15 ml PO Q8H PRN PRN Reason: dysphagia Last Admin: 08/29/18 18:50 Dose: 15 ml Losartan Potassium (Cozaar) 50 mg PO DAILY [facility] Metolazone (Zaroxolyn) 2.5 mg PO DAILY [facility] Last Admin: 09/10/18 08:35 Dose: 2.5 mg Morphine Sulfate (Morphine) 2 mg IVP Q4 PRN PRN Reason: Agitation Last Admin: 09/07/18 18:27 Dose: 2 mg Nystatin (Nystop Topical Powder) 1 applic TOP TID [facility] Last Admin: 09/10/18 08:34 Dose: 1 applic Ondansetron HCl (Zofran Inj) 4 mg IVP Q6 PRN PRN Reason: Nausea/Vomiting Last Admin: 09/01/18 16:45 Dose: 4 mg Rifaximin (Xifaxan) 550 mg PO BID [facility]; Protocol Last Admin: 08/22/18 09:07 Dose: Not Given Saliva Substitute (First Magic Mouthwash) 5 ml PO TID [facility] Last Admin: 09/10/18 08:34 Dose: 5 ml Sitagliptin Phosphate (Januvia) 25 mg PO DAILY [facility] Last Admin: 09/03/18 08:52 Dose: 25 mg - Labs Labs: 09/10/18 04:30 09/10/18 04:30 PT 15.6 Seconds (9.8-13.1) H 09/02/18 04:41 INR 1.4 09/02/18 04:41 APTT 32.2 Seconds (25.6-37.1) 08/24/18 06:45
[2018-09-10] MEDS: Insulin Regular 100 units/ml SC SCH ×3 (12:20→22:09)
[2018-09-10] MEDS ORDERED: Phytonadione 10 mg/ml Inj (Adult) IV ONE (12:27)
[2018-09-10] MEDS ORDERED: Phytonadione 10 MG in Sodium Chloride 0.9% 50 ML IV ONE (12:45)
--- NOTE | 2018-09-10 13:34 | CP.PCM.CON ---
History of Present Illness - History of Present Illness History of Present Illness: Surgery: Dr. Hinton Reason for consult: recurrent right pleural effusion HPI: Patient is an 82 y/o female who was admitted for AMS and worsening shortness of breath found to have a moderate right pleural effusion secondary to fluid overload from CHF and renal failure. Patient underwent IR thoracentesis x3 with greater than 1 liter removed each session however the effusion and SOB persists. Patient is receiving HD 3x/week. Per family, they request a chest tube that they can drain at home. PMH: CHF, AFB, Renal failure on HD, DM, HLD, COPD PSH: right permacath insertion, pacemaker placement, cardiac cath, cysto, vaginal reconstruction, BL cataracts Social: no known drugs, ETO, or tobacco abuse. DNR. Family bedside. Review of Systems - Review of Systems Systems not reviewed;Unavailable: Altered Mental Status Past Patient History - Tetanus Immunizations Tetanus Immunization: Unknown - Past Medical History & Family History Past Medical History?: Yes - Past Social History Smoking Status: Never Smoked Chewing Tobacco Use: No Cigar Use: No Alcohol: None Drugs: Denies Home Situation {Lives}: With Family - CARDIAC Hx Atrial Fibrillation: Yes Hx Cardia Arrhythmia: Yes (A-FIB) Hx Congestive Heart Failure: Yes Hx Hypercholesterolemia: Yes Hx Hypertension: Yes Hx Pacemaker: Yes - PULMONARY Hx Asthma: Yes Hx Chronic Obstructive Pulmonary Disease (COPD): Yes Hx Pneumonia: Yes - NEUROLOGICAL Hx Neurological Disorder: No - HEENT Hx HEENT Problems: No - RENAL Hx Chronic Kidney Disease: Yes - ENDOCRINE/METABOLIC Hx Hypothyroidism: Yes - HEMATOLOGICAL/ONCOLOGICAL Hx Anemia: Yes Hx Human Immunodeficiency Virus (HIV): No - INTEGUMENTARY Hx Dermatological Problems: No - MUSCULOSKELETAL/RHEUMATOLOGICAL Hx Arthritis: Yes Hx Falls: No - GASTROINTESTINAL Hx Gastrointestinal Disorders: Yes Hx Liver Failure: Yes - GENITOURINARY/GYNECOLOGICAL Hx Genitourinary Disorders: No - PSYCHIATRIC Hx Depression: Yes Hx Substance Use: No - SURGICAL HISTORY Hx Surgeries: Yes Hx Cataract Extraction: Yes (BILAT.) Hx Cardiac Catheterization: Yes Other/Comment: HX: CYSTO WITH STENT PLACED. HX: RECONSTRUCTION OF VAGINA. HX: CYSTOSCOPY RIGHT URETERAL STENT EXCHANGE(01/29/18) - ANESTHESIA Hx Anesthesia: Yes Hx Anesthesia Reactions: No Hx Malignant Hyperthermia: No Meds Allergies/Adverse Reactions: Allergies Allergy/AdvReac Type Severity Reaction Status Date / Time metoclopramide [From Reglan] Allergy ANAPHYLAXIS Verified 08/03/18 23:19 - Medications Medications: Current Medications Acetaminophen (Tylenol 650mg/20.3ml Solution Ud) 650 mg PO Q4 PRN PRN Reason: Pain, moderate (4-7) Last Admin: 09/09/18 20:57 Dose: 650 mg Acetylcysteine (Acetylcysteine 20%) 2 ml INH RBID [facility] Last Admin: 09/10/18 07:55 Dose: 2 ml Albuterol/Ipratropium (Duoneb 3 Mg/0.5 Mg (3 Ml) Ud) 3 ml INH RQ4 PRN PRN Reason: Shortness of Breath Last Admin: 09/06/18 16:43 Dose: 3 ml Albuterol/Ipratropium (Duoneb 3 Mg/0.5 Mg (3 Ml) Ud) 3 ml INH RQ4 [facility] Last Admin: 09/10/18 11:20 Dose: 3 ml Anastrozole (Arimidex 1 Mg Tab) 1 mg PO DAILY [facility] Last Admin: 09/10/18 08:29 Dose: 1 mg Calcium Acetate (Phoslo) 667 mg PO DAILY [facility] Last Admin: 08/22/18 10:00 Dose: Not Given Carvedilol (Coreg) 3.125 mg PO Q12 [facility] Last Admin: 09/10/18 08:34 Dose: 3.125 mg Diltiazem HCl (Cardizem) 30 mg PO BID [facility] Last Admin: 09/10/18 08:33 Dose: 30 mg Epoetin Theron (Procrit) 10,000 unit IV MWF [facility] Last Admin: 09/05/18 14:20 Dose: 10,000 unit Ergocalciferol (Drisdol 50,000 Intl Units Cap) 1 cap PO QWK [facility] Escitalopram Oxalate (Lexapro) 20 mg PO DAILY [facility] Famotidine (Pepcid) 20 mg NG DAILY [facility] Last Admin: 09/10/18 08:35 Dose: 20 mg Insulin Detemir (Levemir) 5 units SC HS [facility] Last Admin: 09/09/18 21:05 Dose: 5 units Insulin Human Lispro (Humalog) 10 units SC TIDAC [facility] Last Admin: 08/22/18 12:31 Dose: Not Given Insulin Human Regular (Humulin R) 0 units SC ACCU-CHECK [facility]; Protocol Last Admin: 09/10/18 12:20 Dose: 5 unit Lactulose (Enulose) 20 gm PO TID [facility] Last Admin: 08/25/18 08:24 Dose: 20 gm Lidocaine HCl (Lidocaine 2% Viscous) 15 ml PO Q8H PRN PRN Reason: dysphagia Last Admin: 08/29/18 18:50 Dose: 15 ml Losartan Potassium (Cozaar) 50 mg PO DAILY [facility] Metolazone (Zaroxolyn) 2.5 mg PO DAILY [facility] Last Admin: 09/10/18 08:35 Dose: 2.5 mg Morphine Sulfate (Morphine) 2 mg IVP Q4 PRN PRN Reason: Agitation Last Admin: 09/07/18 18:27 Dose: 2 mg Nystatin (Nystop Topical Powder) 1 applic TOP TID [facility] Last Admin: 09/10/18 12:21 Dose: 1 applic Ondansetron HCl (Zofran Inj) 4 mg IVP Q6 PRN PRN Reason: Nausea/Vomiting Last Admin: 09/01/18 16:45 Dose: 4 mg Rifaximin (Xifaxan) 550 mg PO BID [facility]; Protocol Last Admin: 08/22/18 09:07 Dose: Not Given Saliva Substitute (First Magic Mouthwash) 5 ml PO TID [facility] Last Admin: 09/10/18 12:20 Dose: 5 ml Sitagliptin Phosphate (Januvia) 25 mg PO DAILY [facility] Last Admin: 09/03/18 08:52 Dose: 25 mg Physical Exam - Constitutional Appears: No Acute Distress, Chronically Ill - Head Exam Head Exam: NORMOCEPHALIC - Eye Exam Eye Exam: Normal appearance - ENT Exam ENT Exam: Mucous Membranes Moist - Respiratory Exam Respiratory Exam: Decreased Breath Sounds (right) - Cardiovascular Exam Cardiovascular Exam: Irregular Rhythm. absent: Tachycardia - GI/Abdominal Exam GI & Abdominal Exam: absent: Distended, Tenderness - Rectal Exam Rectal Exam: Deferred - Neurological Exam Neurological exam: Altered - Psychiatric Exam Psychiatric exam: Normal Affect - Skin Skin Exam: Dry, Pallor, Warm Results - Vital Signs Recent Vital Signs: Last Vital Signs Temp 97.4 F L 09/10/18 12:00 Pulse 99 H 09/10/18 12:00 Resp 36 H 09/10/18 12:00 BP 135/63 09/10/18 12:00 Pulse Ox 100 09/10/18 12:00 - Labs Result Diagrams: 09/10/18 04:30 09/10/18 04:30 Labs: Laboratory Results - last 24 hr 09/09/18 09/09/18 09/10/18 16:37 21:04 04:30 WBC 7.1 RBC 2.49 L Hgb 8.6 L Hct 26.5 L MCV 106.6 H MCH 34.4 H MCHC 32.3 L RDW 21.6 H Plt Count 50 L Sodium Potassium Chloride Carbon Dioxide Anion Gap BUN Creatinine Est GFR ( Amer) Est GFR (Non-Af Amer) POC Glucose (mg/dL) 288 H 290 H Random Glucose Calcium Total Bilirubin AST ALT Alkaline Phosphatase Total Protein Albumin Globulin Albumin/Globulin Ratio 09/10/18 09/10/18 09/10/18 04:30 04:58 11:25 WBC RBC Hgb Hct MCV MCH MCHC RDW Plt Count Sodium 135 Potassium 4.5 Chloride 94 L Carbon Dioxide 28 Anion Gap 18 BUN 87 H Creatinine 2.8 H Est GFR ( Amer) 20 Est GFR (Non-Af Amer) 16 POC Glucose (mg/dL) 343 H 369 H Random Glucose 357 H Calcium 9.7 Total Bilirubin 1.1 AST 48 H D ALT 43 Alkaline Phosphatase 113 Total Protein 6.1 L Albumin 2.7 L Globulin 3.4 Albumin/Globulin Ratio 0.8 L Assessment & Plan - Assessment and Plan (Free Text) Assessment: 82 y/o female w/ right recurrent pleural effusion s/p thoracentesis x3 Plan: -will tentatively plan for Pleurex catheter placement in OR on 09/11 -Defer to heme/onc for pre-op and post op recommendations regarding platelet transfusion -NPO PMN -medical and cardiac optimization -d/w Dr. Mary Jane Torrez PGY4
--- NOTE | 2018-09-10 13:35 | US ---
PROCEDURE: Date of procedure: Procedure: 1. Ultrasound-guided Right thoracentesis, CPT 20850 Medications: 6cc 1% Lidocaine HISTORY: Right pleural effusion, shortness of breath TECHNIQUE: Following informed consent ,the Patients' right chest was marked. Procedure time-out was called, and the patient was placed in the sitting position and limited ultrasound showed a large right effusion. The patient's right back was prepped and draped in the usual sterile fashion. After the skin was anesthetized with lidocaine, a drainage catheter was advanced under ultrasound guidance into the pleural space. Ultrasound-guided thoracentesis was performed. A total of 1000 cubic centimeters of straw-colored fluid removed without complication. A Xeroform dressing was applied. IMPRESSION: Ultrasound guided Right thoracentesis. There were no immediate complications.
--- NOTE | 2018-09-10 16:35 | CP.CCUPN ---
CCU Subjective - Physician Review Subjective (Free Text): 09/10/18 16:14 The patient was Seen/interviewed and examined by me at the bedside during ICU round, Medical records reviewed and Management issues were discussed and formulated with the house staff. Events reviewed 82 Years old Female with PMHx of hypertension, hypothyroidism, hyperlipidemia, diabetes, atrial fibrillation, asthma/COPD and Pulmonary Hypertension (?Connective tissue disorder Vs Liver Cirrhosis). Who intially presents to ER 08/04 for evaluation of shortness of breath associated with cough and decreased appetite onset 2 days. Admitted with acute congestive heart failure Transferred to the ICU for management of Acute resp insuff secondary to CHF, Pneumonia with Pleural effusion 08/15, she underwent US guided right thoracentesis for Right pleural effusion 1.45 liters of straw colored fluid Removed 08/21, she underwent US guided right thoracentesis for Right pleural effusion 1200 cc of gonzales colored fluid Removed Patient more awake, opens eyes to verbal stimuli, follow commands Pt was successfully extubated 09/04 Awake, follows some commands Comfortable, NAD Denies any chest pain, SOB or Palpitations Afebrile, A-Fib on the monitor CXR revealed worsening R pleural effusion, Surgery and IR called for thoracocentesis and possible chest tube placement. Discussed the family at bedside her condition and guarded prognosis, we reviewed the rationale, risks, benefits, treatment plans and alternatives, they were given the opportunity to ask many questions which were answered to their satisfaction, family does not HD till pleural fluids removed first in light of the recent episodes during the last HD, I explained to them in details that her respiratory staus is stable at this time (RR20 and saturation 99%) and as per surgery the drainage will be done in OR (cardiology clearance requested and stat ECHO was just done), also order and call placed to IR. CCU Objective - Vital Signs / Intake & Output Vital Signs (Last 4 hours): Vital Signs Pulse Resp BP Pulse Ox 09/10/18 14:00 103 H 32 H 135/63 97 Intake and Output (Last 8hrs): Intake & Output 09/10/18 09/10/18 09/10/18 06:59 14:59 22:59 Intake Total 400 400 Output Total 25 Balance 375 400 Weight 135 lb Intake: Tube Feeding 400 400 Output: Urine 25 Urethral (Crane) 25 Other: # Bowel Movements 2 - Physical Exam Head: Positive for: Atraumatic, Normocephalic Pupils: Positive for: PERRL Conjunctiva: Positive for: Normal Ears: Positive for: Normal Mouth: Positive for: Moist Mucous Membranes Nose (External): Positive for: Atraumatic Neck: Positive for: Normal Range of Motion Respiratory/Chest: Positive for: Rhonchi Cardiovascular: Positive for: Irregular Rhythm Abdomen: Positive for: Normal Bowel Sounds Upper Extremity: Positive for: Normal Inspection Lower Extremity: Positive for: Normal Inspection Neurological: Positive for: Other (lethergic) - Medications Active Medications: Active Medications Generic Name Dose Route Start Last Admin Trade Name Freq PRN Reason Stop Dose Admin Acetaminophen 650 mg 09/01/18 07:06 09/09/18 20:57 Tylenol 650mg/20.3ml Solution Ud PO 650 mg Q4 PRN Administration Pain, moderate (4-7) Acetylcysteine 2 ml 09/06/18 20:00 09/10/18 07:55 Acetylcysteine 20% INH 2 ml RBID KATEY Administration Albuterol/Ipratropium 3 ml 09/05/18 01:59 09/06/18 16:43 Duoneb 3 Mg/0.5 Mg (3 Ml) Ud INH 3 ml RQ4 PRN Administration Shortness of Breath Albuterol/Ipratropium 3 ml 09/06/18 17:30 09/10/18 15:50 Duoneb 3 Mg/0.5 Mg (3 Ml) Ud INH 3 ml RQ4 KATEY Administration Anastrozole 1 mg 08/22/18 09:00 09/10/18 08:29 Arimidex 1 Mg Tab PO 1 mg DAILY KATEY Administration Calcium Acetate 667 mg 08/22/18 09:00 08/22/18 10:00 Phoslo PO Not Given DAILY [facility] Carvedilol 3.125 mg 09/05/18 21:00 09/10/18 08:34 Coreg PO 3.125 mg Q12 KATEY Administration Diltiazem HCl 30 mg 09/05/18 17:00 09/10/18 08:33 Cardizem PO 30 mg BID KATEY Administration Epoetin Theron 10,000 unit 08/27/18 09:00 09/05/18 14:20 Procrit IV 10,000 unit MWF KATEY Administration Ergocalciferol 1 cap 08/22/18 00:16 Drisdol 50,000 Intl Units Cap PO QWK [facility] Escitalopram Oxalate 20 mg 08/22/18 09:00 Lexapro PO DAILY [facility] Famotidine 20 mg 09/09/18 09:00 09/10/18 08:35 Pepcid NG 20 mg DAILY [facility] Administration Insulin Detemir 5 units 09/06/18 22:00 09/09/18 21:05 Levemir SC 5 units HS KATEY Administration Insulin Human Lispro 10 units 08/22/18 07:30 08/22/18 12:31 Humalog SC Not Given TIDAC [facility] Insulin Human Regular 0 units 08/22/18 23:00 09/10/18 12:20 Humulin R SC 5 unit ACCU-CHECK [facility] Administration Protocol Lactulose 20 gm 08/22/18 09:00 08/25/18 08:24 Enulose PO 20 gm TID [facility] Administration Losartan Potassium 50 mg 08/22/18 09:00 Cozaar PO DAILY [facility] Metolazone 2.5 mg 08/22/18 09:00 09/10/18 08:35 Zaroxolyn PO 2.5 mg DAILY [facility] Administration Morphine Sulfate 2 mg 09/07/18 18:06 09/07/18 18:27 Morphine IVP 2 mg Q4 PRN Administration Agitation Nystatin 1 applic 09/07/18 09:00 09/10/18 12:21 Nystop Topical Powder TOP 1 applic TID [facility] Administration Ondansetron HCl 4 mg 09/01/18 16:25 09/01/18 16:45 Zofran Inj IVP 4 mg Q6 PRN Administration Nausea/Vomiting Rifaximin 550 mg 08/22/18 09:00 08/22/18 09:07 Xifaxan PO Not Given BID [facility] Protocol Saliva Substitute 5 ml 08/28/18 13:00 09/10/18 12:20 First Magic Mouthwash PO 5 ml TID [facility] Administration Sitagliptin Phosphate 25 mg 08/22/18 09:00 09/03/18 08:52 Januvia PO 25 mg DAILY [facility] Administration - Patient Studies Lab Studies: Microbiology Studies 09/07/18 13:30 Gram Stain - Final Body Fluid - Pleural Fluid Body Fluid Culture - Preliminary NO GROWTH AFTER 3 DAYS Lab Studies 09/10/18 09/10/18 09/10/18 Range/Units 14:28 11:25 04:58 WBC (4.8-10.8) K/uL RBC (3.80-5.20) Mil/uL Hgb (12.0-16.0) g/dL Hct (34.0-47.0) % MCV (81.0-99.0) fl MCH (27.0-31.0) pg MCHC (33.0-37.0) g/dL RDW (11.5-14.5) % Plt Count (130-400) K/uL Sodium (132-148) mmol/l Potassium (3.6-5.0) MMOL/L Chloride (98-107) mmol/L Carbon Dioxide (22-30) mmol/L Anion Gap (10-20) BUN (7-17) mg/dl Creatinine (0.7-1.2) mg/dl Est GFR ( Amer) Est GFR (Non-Af Amer) POC Glucose (mg/dL) 369 H 343 H (65-110) mg/dL Random Glucose (65-105) mg/dL Calcium (8.4-10.2) mg/dL Total Bilirubin (0.2-1.3) mg/dl AST (14-36) U/L ALT (9-52) U/L Alkaline Phosphatase (38-126) U/L Total Protein (6.3-8.2) G/DL Albumin (3.5-5.0) g/dL Globulin (2.2-3.9) gm/dL Albumin/Globulin Ratio (1.0-2.1) Blood Type A POSITIVE Antibody Screen Negative BBK History Checked Patient has bt 09/10/18 09/10/18 09/09/18 Range/Units 04:30 04:30 21:04 WBC 7.1 (4.8-10.8) K/uL RBC 2.49 L (3.80-5.20) Mil/uL Hgb 8.6 L (12.0-16.0) g/dL Hct 26.5 L (34.0-47.0) % MCV 106.6 H (81.0-99.0) fl MCH 34.4 H (27.0-31.0) pg MCHC 32.3 L (33.0-37.0) g/dL RDW 21.6 H (11.5-14.5) % Plt Count 50 L (130-400) K/uL Sodium 135 (132-148) mmol/l Potassium 4.5 (3.6-5.0) MMOL/L Chloride 94 L (98-107) mmol/L Carbon Dioxide 28 (22-30) mmol/L Anion Gap 18 (10-20) BUN 87 H (7-17) mg/dl Creatinine 2.8 H (0.7-1.2) mg/dl Est GFR ( Amer) 20 Est GFR (Non-Af Amer) 16 POC Glucose (mg/dL) 290 H (65-110) mg/dL Random Glucose 357 H (65-105) mg/dL Calcium 9.7 (8.4-10.2) mg/dL Total Bilirubin 1.1 (0.2-1.3) mg/dl AST 48 H D (14-36) U/L ALT 43 (9-52) U/L Alkaline Phosphatase 113 (38-126) U/L Total Protein 6.1 L (6.3-8.2) G/DL Albumin 2.7 L (3.5-5.0) g/dL Globulin 3.4 (2.2-3.9) gm/dL Albumin/Globulin Ratio 0.8 L (1.0-2.1) Blood Type Antibody Screen BBK History Checked 09/09/18 Range/Units 16:37 WBC (4.8-10.8) K/uL RBC (3.80-5.20) Mil/uL Hgb (12.0-16.0) g/dL Hct (34.0-47.0) % MCV (81.0-99.0) fl MCH (27.0-31.0) pg MCHC (33.0-37.0) g/dL RDW (11.5-14.5) % Plt Count (130-400) K/uL Sodium (132-148) mmol/l Potassium (3.6-5.0) MMOL/L Chloride (98-107) mmol/L Carbon Dioxide (22-30) mmol/L Anion Gap (10-20) BUN (7-17) mg/dl Creatinine (0.7-1.2) mg/dl Est GFR ( Amer) Est GFR (Non-Af Amer) POC Glucose (mg/dL) 288 H (65-110) mg/dL Random Glucose (65-105) mg/dL Calcium (8.4-10.2) mg/dL Total Bilirubin (0.2-1.3) mg/dl AST (14-36) U/L ALT (9-52) U/L Alkaline Phosphatase (38-126) U/L Total Protein (6.3-8.2) G/DL Albumin (3.5-5.0) g/dL Globulin (2.2-3.9) gm/dL Albumin/Globulin Ratio (1.0-2.1) Blood Type Antibody Screen BBK History Checked Laboratory Results - last 24 hr 09/09/18 09/09/18 09/10/18 16:37 21:04 04:30 WBC 7.1 RBC 2.49 L Hgb 8.6 L Hct 26.5 L MCV 106.6 H MCH 34.4 H MCHC 32.3 L RDW 21.6 H Plt Count 50 L Sodium Potassium Chloride Carbon Dioxide Anion Gap BUN Creatinine Est GFR ( Amer) Est GFR (Non-Af Amer) POC Glucose (mg/dL) 288 H 290 H Random Glucose Calcium Total Bilirubin AST ALT Alkaline Phosphatase Total Protein Albumin Globulin Albumin/Globulin Ratio Blood Type Antibody Screen BBK History Checked 09/10/18 09/10/18 09/10/18 04:30 04:58 11:25 WBC RBC Hgb Hct MCV MCH MCHC RDW Plt Count Sodium 135 Potassium 4.5 Chloride 94 L Carbon Dioxide 28 Anion Gap 18 BUN 87 H Creatinine 2.8 H Est GFR ( Amer) 20 Est GFR (Non-Af Amer) 16 POC Glucose (mg/dL) 343 H 369 H Random Glucose 357 H Calcium 9.7 Total Bilirubin 1.1 AST 48 H D ALT 43 Alkaline Phosphatase 113 Total Protein 6.1 L Albumin 2.7 L Globulin 3.4 Albumin/Globulin Ratio 0.8 L Blood Type Antibody Screen BBK History Checked 09/10/18 14:28 WBC RBC Hgb Hct MCV MCH MCHC RDW Plt Count Sodium Potassium Chloride Carbon Dioxide Anion Gap BUN Creatinine Est GFR ( Amer) Est GFR (Non-Af Amer) POC Glucose (mg/dL) Random Glucose Calcium Total Bilirubin AST ALT Alkaline Phosphatase Total Protein Albumin Globulin Albumin/Globulin Ratio Blood Type A POSITIVE Antibody Screen Negative BBK History Checked Patient has bt Radiology Impressions: Radiology Impressions Interventional Procedure 09/06/18 09:14 IMPRESSION: Ultrasound guided Right thoracentesis. There were no immediate complications. Chest X-Ray 09/10/18 07:00 IMPRESSION: Increased right pleural effusion with underlying right basilar airspace disease not excluded. Stable cardiomegaly. No pulmonary vascular congestion. Fingerstick Blood Sugar Results: 369 Critical Care Progress Note - Nutrition Nutrition: Nutrition Category Date Time Status NPO Diet [DIET] Diets 09/11/18 Breakfast Active Assessment/Plan (1) Respiratory failure Current Visit: Yes Status: Acute Priority: High Comment: Multifactorial from acute CHF, Pneumonia with Pleural effusion improving, Pt was successfully extubated 09/04 Breathing unlabored Saturation 98% on 3L nasal cannula (2) HCAP (healthcare-associated pneumonia) Current Visit: Yes Status: Acute Priority: High Comment: Afebrile, Off Antibiotics (3) Pleural effusion Current Visit: Yes Status: Acute Priority: High Comment: 08/15, she underwent US guided right thoracentesis for Right pleural effusion 1.45 liters of straw colored fluid Removed 08/21, she underwent US guided right thoracentesis for Right pleural effusion 1200 cc of gonzales colored fluid Removed (4) Acute diastolic heart failure due to valvular disease Current Visit: Yes Status: Acute Priority: High Comment: Continue gentle diuresis, medical management as per cardiology (5) Acute renal failure Current Visit: Yes Status: Acute Priority: High (6) Thrombocytopenia Current Visit: Yes Status: Chronic Priority: High Comment: This morning labs revealed Platelet drop to 28K, no active bleeding, discussed with hematology, will transfuse for plat <20K. (7) COPD (chronic obstructive pulmonary disease) Current Visit: No Status: Chronic Priority: Medium Comment: Spiriva 18 mcg INH DAILY PRN Albuterol
--- NOTE | 2018-09-10 17:17 | CP.PCM.PN ---
Subjective - Date & Time of Evaluation Date of Evaluation: 09/10/18 Time of Evaluation: 16:45 - Subjective Subjective: Patient has recurrent pleural effusion and is being evaluated for possible repeat thoracentesis and chest tube/pigtail catheter placement. Objective - Vital Signs/Intake and Output Vital Signs (last 24 hours): Temp Pulse Resp BP Pulse Ox 97.3 F L 97 H 33 H 135/63 98 09/10/18 16:00 09/10/18 16:16 09/10/18 16:16 09/10/18 16:16 09/10/18 16:16 Intake and Output: 09/10/18 09/10/18 06:59 18:59 Intake Total 600 400 Output Total 40 Balance 560 400 - Medications Medications: Current Medications Acetaminophen (Tylenol 650mg/20.3ml Solution Ud) 650 mg PO Q4 PRN PRN Reason: Pain, moderate (4-7) Last Admin: 09/09/18 20:57 Dose: 650 mg Acetylcysteine (Acetylcysteine 20%) 2 ml INH RBID [facility] Last Admin: 09/10/18 07:55 Dose: 2 ml Albuterol/Ipratropium (Duoneb 3 Mg/0.5 Mg (3 Ml) Ud) 3 ml INH RQ4 PRN PRN Reason: Shortness of Breath Last Admin: 09/06/18 16:43 Dose: 3 ml Albuterol/Ipratropium (Duoneb 3 Mg/0.5 Mg (3 Ml) Ud) 3 ml INH RQ4 [facility] Last Admin: 09/10/18 15:50 Dose: 3 ml Anastrozole (Arimidex 1 Mg Tab) 1 mg PO DAILY [facility] Last Admin: 09/10/18 08:29 Dose: 1 mg Calcium Acetate (Phoslo) 667 mg PO DAILY [facility] Last Admin: 08/22/18 10:00 Dose: Not Given Carvedilol (Coreg) 3.125 mg PO Q12 [facility] Last Admin: 09/10/18 08:34 Dose: 3.125 mg Diltiazem HCl (Cardizem) 30 mg PO BID [facility] Last Admin: 09/10/18 16:16 Dose: 30 mg Epoetin Theron (Procrit) 10,000 unit IV MWF [facility] Last Admin: 09/05/18 14:20 Dose: 10,000 unit Ergocalciferol (Drisdol 50,000 Intl Units Cap) 1 cap PO QWK [facility] Escitalopram Oxalate (Lexapro) 20 mg PO DAILY [facility] Famotidine (Pepcid) 20 mg NG DAILY [facility] Last Admin: 09/10/18 08:35 Dose: 20 mg Insulin Detemir (Levemir) 5 units SC HS [facility] Last Admin: 09/09/18 21:05 Dose: 5 units Insulin Human Lispro (Humalog) 10 units SC TIDAC [facility] Last Admin: 08/22/18 12:31 Dose: Not Given Insulin Human Regular (Humulin R) 0 units SC ACCU-CHECK [facility]; Protocol Last Admin: 09/10/18 16:29 Dose: 2 unit Lactulose (Enulose) 20 gm PO TID [facility] Last Admin: 08/25/18 08:24 Dose: 20 gm Losartan Potassium (Cozaar) 50 mg PO DAILY [facility] Metolazone (Zaroxolyn) 2.5 mg PO DAILY [facility] Last Admin: 09/10/18 08:35 Dose: 2.5 mg Morphine Sulfate (Morphine) 2 mg IVP Q4 PRN PRN Reason: Agitation Last Admin: 09/07/18 18:27 Dose: 2 mg Nystatin (Nystop Topical Powder) 1 applic TOP TID [facility] Last Admin: 09/10/18 16:17 Dose: 1 applic Ondansetron HCl (Zofran Inj) 4 mg IVP Q6 PRN PRN Reason: Nausea/Vomiting Last Admin: 09/01/18 16:45 Dose: 4 mg Rifaximin (Xifaxan) 550 mg PO BID [facility]; Protocol Last Admin: 08/22/18 09:07 Dose: Not Given Saliva Substitute (First Magic Mouthwash) 5 ml PO TID [facility] Last Admin: 09/10/18 16:17 Dose: 5 ml Sitagliptin Phosphate (Januvia) 25 mg PO DAILY [facility] Last Admin: 09/03/18 08:52 Dose: 25 mg - Labs Labs: 09/10/18 04:30 09/10/18 04:30 PT 15.6 Seconds (9.8-13.1) H 09/02/18 04:41 INR 1.4 09/02/18 04:41 APTT 32.2 Seconds (25.6-37.1) 08/24/18 06:45 - Constitutional Appears: Chronically Ill - Head Exam Head Exam: NORMAL INSPECTION - Eye Exam Eye Exam: Normal appearance - ENT Exam ENT Exam: Mucous Membranes Moist - Neck Exam Neck Exam: Full ROM - Respiratory Exam Respiratory Exam: Decreased Breath Sounds - Cardiovascular Exam Cardiovascular Exam: Irregular Rhythm - GI/Abdominal Exam GI & Abdominal Exam: Normal Bowel Sounds - Rectal Exam Rectal Exam: Deferred - Extremities Exam Extremities Exam: Pedal Edema - Back Exam Back Exam: NORMAL INSPECTION - Skin Skin Exam: Normal Color Assessment and Plan (1) Pleural effusion Assessment & Plan: I had a long discussion with the children ( 2 daughters and son) at bedside. I have explained that there is no such thing as "cardiac clearance" and the more proper term is risk assessment. The patient has multiple comorbidities, both cardiac and noncardiac. Even the most minor procedure has significant cardiac risks associated and therefore the patient would be deemed a high risk patient. The degree of risk has been fully explained to the family. Patient's risk may be minimized by increasing cardizem to 60 mg BID, although her tachycardia is likely due to the patient overall poor medical condition. Recommend use of the least amount of anesthesia possible to decrease risk. Status: Acute (2) Atrial fibrillation Assessment & Plan: increase cardizem. not on anticaogulation due to bleeding Status: Acute (3) Mitral valve regurgitation Assessment & Plan: not candidate for surgical repalcement. kush of blood pressure control to reduce afterload. Status: Chronic
--- NOTE | 2018-09-10 18:21 | CP.PCM.PN ---
Subjective - Date & Time of Evaluation Date of Evaluation: 09/10/18 Time of Evaluation: 18:20 - Subjective Subjective: pt is seen and examined, follow up consult is dictated #[id number] Objective - Vital Signs/Intake and Output Vital Signs (last 24 hours): Temp Pulse Resp BP Pulse Ox 97.3 F L 97 H 33 H 135/63 98 09/10/18 16:00 09/10/18 16:16 09/10/18 16:16 09/10/18 16:16 09/10/18 16:16 Intake and Output: 09/10/18 09/10/18 06:59 18:59 Intake Total 600 500 Output Total 40 Balance 560 500 - Medications Medications: Current Medications Acetaminophen (Tylenol 650mg/20.3ml Solution Ud) 650 mg PO Q4 PRN PRN Reason: Pain, moderate (4-7) Last Admin: 09/09/18 20:57 Dose: 650 mg Acetylcysteine (Acetylcysteine 20%) 2 ml INH RBID [facility] Last Admin: 09/10/18 07:55 Dose: 2 ml Albuterol/Ipratropium (Duoneb 3 Mg/0.5 Mg (3 Ml) Ud) 3 ml INH RQ4 PRN PRN Reason: Shortness of Breath Last Admin: 09/06/18 16:43 Dose: 3 ml Albuterol/Ipratropium (Duoneb 3 Mg/0.5 Mg (3 Ml) Ud) 3 ml INH RQ4 [facility] Last Admin: 09/10/18 15:50 Dose: 3 ml Anastrozole (Arimidex 1 Mg Tab) 1 mg PO DAILY [facility] Last Admin: 09/10/18 08:29 Dose: 1 mg Calcium Acetate (Phoslo) 667 mg PO DAILY [facility] Last Admin: 08/22/18 10:00 Dose: Not Given Carvedilol (Coreg) 3.125 mg PO Q12 [facility] Last Admin: 09/10/18 08:34 Dose: 3.125 mg Diltiazem HCl (Cardizem) 30 mg PO BID [facility] Last Admin: 09/10/18 16:16 Dose: 30 mg Epoetin Theron (Procrit) 10,000 unit IV MWF [facility] Last Admin: 09/05/18 14:20 Dose: 10,000 unit Ergocalciferol (Drisdol 50,000 Intl Units Cap) 1 cap PO QWK [facility] Escitalopram Oxalate (Lexapro) 20 mg PO DAILY [facility] Famotidine (Pepcid) 20 mg NG DAILY [facility] Last Admin: 09/10/18 08:35 Dose: 20 mg Insulin Detemir (Levemir) 5 units SC HS [facility] Last Admin: 09/09/18 21:05 Dose: 5 units Insulin Human Lispro (Humalog) 10 units SC TIDAC [facility] Last Admin: 08/22/18 12:31 Dose: Not Given Insulin Human Regular (Humulin R) 0 units SC ACCU-CHECK [facility]; Protocol Last Admin: 09/10/18 16:29 Dose: 2 unit Lactulose (Enulose) 20 gm PO TID [facility] Last Admin: 08/25/18 08:24 Dose: 20 gm Losartan Potassium (Cozaar) 50 mg PO DAILY [facility] Metolazone (Zaroxolyn) 2.5 mg PO DAILY [facility] Last Admin: 09/10/18 08:35 Dose: 2.5 mg Nystatin (Nystop Topical Powder) 1 applic TOP TID [facility] Last Admin: 09/10/18 16:17 Dose: 1 applic Ondansetron HCl (Zofran Inj) 4 mg IVP Q6 PRN PRN Reason: Nausea/Vomiting Last Admin: 09/10/18 17:37 Dose: 4 mg Rifaximin (Xifaxan) 550 mg PO BID [facility]; Protocol Last Admin: 08/22/18 09:07 Dose: Not Given Saliva Substitute (First Magic Mouthwash) 5 ml PO TID [facility] Last Admin: 09/10/18 16:17 Dose: 5 ml Sitagliptin Phosphate (Januvia) 25 mg PO DAILY [facility] Last Admin: 09/03/18 08:52 Dose: 25 mg - Labs Labs: 09/10/18 04:30 09/10/18 04:30 PT 15.6 Seconds (9.8-13.1) H 09/02/18 04:41 INR 1.4 09/02/18 04:41 APTT 32.2 Seconds (25.6-37.1) 08/24/18 06:45
--- NOTE | 2018-09-10 20:07 | CARD ---
APPROVED REPORT Date of service: 09/10/2018 EXAM: Two-dimensional and M-mode echocardiogram with Doppler and color Doppler. Other Information Quality : AverageRhythm : Pacemaker INDICATION Pre-Op Surgery/Intervention Pacemaker: 2D DIMENSIONS IVSd1.14 (0.7-1.1cm)LVDd2.84 (3.9-5.9cm) LVOT Diameter1.87 (1.8-2.4cm)PWd1.47 (0.7-1.1cm) IVSs1.63 (0.8-1.2cm)LVDs1.61 (2.5-4.0cm) FS (%) 43.2 %PWs1.67 (0.8-1.2cm) M-Mode DIMENSIONS Left Atrium (MM)4.97 (2.5-4.0cm)Aortic Root2.62 (2.2-3.7cm) Aortic Cusp Exc.1.79 (1.5-2.0cm) Aortic Valve AoV Peak Jgubcwzl09.9cm/sAoV VTI14.8cmAO Peak GR.4mmHg LVOT Peak Rtspwckp70.4cm/sLVOT VTI12.80cmAO Mean GR.2mmHg FILIBERTO (VMAX)1.46ru6HXC (VTI)1.52cm2 Mitral Valve E/A ratio0.0 TDI E/Lateral E'0.0E/Medial E'0.0 Tricuspid Valve TR Peak [id number] [id number] Peak Gr.50mmHg [id number] LEFT VENTRICLE The left ventricle is normal size. There is mild concentric left ventricular hypertrophy. The left ventricular systolic function is normal. The estimated ejection fraction is 55-60% No regional wall motion abnormalities noted.. The left ventricular diastolic function cannot be assessed due to underlying atrial fibrillation. No left ventricle thrombus noted on this study. There is no ventricular septal defect visualized. There is no left ventricular aneurysm. There is no mass noted in the left ventricle. RIGHT VENTRICLE The right ventricle is normal size. There is normal right ventricular wall thickness. The right ventricular systolic function is normal. A PPM lead is noticed in right ventricle. ATRIA The left atrium is moderately dilated. The right atrium size is normal. The interatrial septum is intact with no evidence for an atrial septal defect. AORTIC VALVE The aortic valve is normal in structure. No aortic regurgitation is present. There is no aortic valvular stenosis. There is no aortic valvular vegetation. MITRAL VALVE The mitral valve is normal in structure. There is no evidence of mitral valve prolapse. There is no mitral valve stenosis. There is moderate mitral valve regurgitation noted. TRICUSPID VALVE The tricuspid valve is normal in structure. There is moderate to severe tricuspid valve regurgitation noted. RVSP is calculated at 64 mm Hg. Consistent with moderate pulmonary HTN. There is no tricuspid valve prolapse or vegetation. There is no tricuspid valve stenosis. PULMONIC VALVE The pulmonary valve is normal in structure. There is no pulmonic valvular regurgitation. There is no pulmonic valvular stenosis. GREAT VESSELS The aortic root is normal in size. The ascending aorta is normal in size. The pulmonary artery is normal. The IVC is normal in size and collapses >50% with inspiration. PERICARDIAL EFFUSION There is no pericardial effusion. There is no pleural effusion. <Conclusion> There is mild concentric left ventricular hypertrophy. The estimated ejection fraction is 55-60% The left ventricular diastolic function cannot be assessed due to underlying atrial fibrillation. The left atrium is moderately dilated. There is moderate mitral valve regurgitation noted. There is moderate to severe tricuspid valve regurgitation noted. RVSP is calculated at 64 mm Hg. Consistent with moderate pulmonary HTN. A PPM lead is noticed in right ventricle. The IVC is normal in size and collapses >50% with inspiration.
--- NOTE | 2018-09-10 21:35 | CP.PCM.PN ---
Subjective - Date & Time of Evaluation Date of Evaluation: 09/10/18 Time of Evaluation: 11:00 Objective - Vital Signs/Intake and Output Vital Signs (last 24 hours): Temp Pulse Resp BP Pulse Ox 97.3 F L 97 H 33 H 153/71 H 97 09/10/18 16:00 09/10/18 18:00 09/10/18 18:00 09/10/18 18:00 09/10/18 18:00 Intake and Output: 09/10/18 09/11/18 18:59 06:59 Intake Total 550 Output Total 100 Balance 450 - Medications Medications: Current Medications Acetaminophen (Tylenol 650mg/20.3ml Solution Ud) 650 mg PO Q4 PRN PRN Reason: Pain, moderate (4-7) Last Admin: 09/09/18 20:57 Dose: 650 mg Acetylcysteine (Acetylcysteine 20%) 2 ml INH RBID [facility] Last Admin: 09/10/18 19:21 Dose: 2 ml Albuterol/Ipratropium (Duoneb 3 Mg/0.5 Mg (3 Ml) Ud) 3 ml INH RQ4 PRN PRN Reason: Shortness of Breath Last Admin: 09/06/18 16:43 Dose: 3 ml Albuterol/Ipratropium (Duoneb 3 Mg/0.5 Mg (3 Ml) Ud) 3 ml INH RQ4 [facility] Last Admin: 09/10/18 19:21 Dose: 3 ml Anastrozole (Arimidex 1 Mg Tab) 1 mg PO DAILY [facility] Last Admin: 09/10/18 08:29 Dose: 1 mg Calcium Acetate (Phoslo) 667 mg PO DAILY [facility] Last Admin: 08/22/18 10:00 Dose: Not Given Carvedilol (Coreg) 3.125 mg PO Q12 [facility] Last Admin: 09/10/18 08:34 Dose: 3.125 mg Diltiazem HCl (Cardizem) 30 mg PO BID [facility] Last Admin: 09/10/18 16:16 Dose: 30 mg Epoetin Theron (Procrit) 10,000 unit IV MWF [facility] Last Admin: 09/05/18 14:20 Dose: 10,000 unit Ergocalciferol (Drisdol 50,000 Intl Units Cap) 1 cap PO QWK [facility] Escitalopram Oxalate (Lexapro) 20 mg PO DAILY [facility] Famotidine (Pepcid) 20 mg NG DAILY [facility] Last Admin: 09/10/18 08:35 Dose: 20 mg Insulin Detemir (Levemir) 5 units SC HS [facility] Last Admin: 09/09/18 21:05 Dose: 5 units Insulin Human Lispro (Humalog) 10 units SC TIDAC [facility] Last Admin: 08/22/18 12:31 Dose: Not Given Insulin Human Regular (Humulin R) 0 units SC ACCU-CHECK [facility]; Protocol Last Admin: 09/10/18 16:29 Dose: 2 unit Lactulose (Enulose) 20 gm PO TID [facility] Last Admin: 08/25/18 08:24 Dose: 20 gm Losartan Potassium (Cozaar) 50 mg PO DAILY [facility] Metolazone (Zaroxolyn) 2.5 mg PO DAILY [facility] Last Admin: 09/10/18 08:35 Dose: 2.5 mg Nystatin (Nystop Topical Powder) 1 applic TOP TID [facility] Last Admin: 09/10/18 16:17 Dose: 1 applic Ondansetron HCl (Zofran Inj) 4 mg IVP Q6 PRN PRN Reason: Nausea/Vomiting Last Admin: 09/10/18 17:37 Dose: 4 mg Rifaximin (Xifaxan) 550 mg PO BID [facility]; Protocol Last Admin: 08/22/18 09:07 Dose: Not Given Saliva Substitute (First Magic Mouthwash) 5 ml PO TID [facility] Last Admin: 09/10/18 16:17 Dose: 5 ml Sitagliptin Phosphate (Januvia) 25 mg PO DAILY [facility] Last Admin: 09/03/18 08:52 Dose: 25 mg - Labs Labs: 09/10/18 04:30 09/10/18 04:30 PT 15.6 Seconds (9.8-13.1) H 09/02/18 04:41 INR 1.4 09/02/18 04:41 APTT 32.2 Seconds (25.6-37.1) 08/24/18 06:45 Assessment and Plan (1) Acute renal failure Status: Acute (2) CHF (congestive heart failure) Status: Acute (3) Pleural effusion Status: Acute (4) Thrombocytopenia Status: Chronic (5) Anemia Status: Acute (6) Physical debility Status: Acute (7) Cirrhosis Status: Chronic (8) DM2 (diabetes mellitus, type 2) Status: Chronic
[2018-09-10] MEDS: Insulin Detemir 100 Units/ml Inj SC SCH (22:08)
[2018-09-10] MEDS: Acetaminophen 650mg/20.3ml solution UD PO PRN (22:08)
--- NOTE | 2018-09-10 22:36 | CP.PCM.PN ---
Subjective - Date & Time of Evaluation Date of Evaluation: 09/10/18 Time of Evaluation: 18:00 - Subjective Subjective: Appears weak For possible chest tube/pig tail catheter placement will require 2U platelets and vit K prior to procedure with goal plt > 50,000 repeat manual plt in AM Objective - Vital Signs/Intake and Output Vital Signs (last 24 hours): Temp Pulse Resp BP Pulse Ox 97.3 F L 104 H 33 H 127/60 97 09/10/18 16:00 09/10/18 22:06 09/10/18 18:00 09/10/18 22:06 09/10/18 18:00 Intake and Output: 09/10/18 09/11/18 18:59 06:59 Intake Total 550 Output Total 100 Balance 450 - Medications Medications: Current Medications Acetaminophen (Tylenol 650mg/20.3ml Solution Ud) 650 mg PO Q4 PRN PRN Reason: Pain, moderate (4-7) Last Admin: 09/10/18 22:08 Dose: 650 mg Acetylcysteine (Acetylcysteine 20%) 2 ml INH RBID [facility] Last Admin: 09/10/18 19:21 Dose: 2 ml Albuterol/Ipratropium (Duoneb 3 Mg/0.5 Mg (3 Ml) Ud) 3 ml INH RQ4 PRN PRN Reason: Shortness of Breath Last Admin: 09/06/18 16:43 Dose: 3 ml Albuterol/Ipratropium (Duoneb 3 Mg/0.5 Mg (3 Ml) Ud) 3 ml INH RQ4 [facility] Last Admin: 09/10/18 19:21 Dose: 3 ml Anastrozole (Arimidex 1 Mg Tab) 1 mg PO DAILY [facility] Last Admin: 09/10/18 08:29 Dose: 1 mg Calcium Acetate (Phoslo) 667 mg PO DAILY [facility] Last Admin: 08/22/18 10:00 Dose: Not Given Carvedilol (Coreg) 3.125 mg PO Q12 [facility] Last Admin: 09/10/18 22:06 Dose: 3.125 mg Diltiazem HCl (Cardizem) 30 mg PO BID [facility] Last Admin: 09/10/18 16:16 Dose: 30 mg Epoetin Theron (Procrit) 10,000 unit IV MWF [facility] Last Admin: 09/05/18 14:20 Dose: 10,000 unit Ergocalciferol (Drisdol 50,000 Intl Units Cap) 1 cap PO QWK [facility] Escitalopram Oxalate (Lexapro) 20 mg PO DAILY [facility] Famotidine (Pepcid) 20 mg NG DAILY [facility] Last Admin: 09/10/18 08:35 Dose: 20 mg Insulin Detemir (Levemir) 5 units SC HS [facility] Last Admin: 09/10/18 22:08 Dose: 5 units Insulin Human Lispro (Humalog) 10 units SC TIDAC [facility] Last Admin: 08/22/18 12:31 Dose: Not Given Insulin Human Regular (Humulin R) 0 units SC ACCU-CHECK [facility]; Protocol Last Admin: 09/10/18 22:09 Dose: 3 unit Lactulose (Enulose) 20 gm PO TID [facility] Last Admin: 08/25/18 08:24 Dose: 20 gm Losartan Potassium (Cozaar) 50 mg PO DAILY [facility] Metolazone (Zaroxolyn) 2.5 mg PO DAILY [facility] Last Admin: 09/10/18 08:35 Dose: 2.5 mg Nystatin (Nystop Topical Powder) 1 applic TOP TID [facility] Last Admin: 09/10/18 16:17 Dose: 1 applic Ondansetron HCl (Zofran Inj) 4 mg IVP Q6 PRN PRN Reason: Nausea/Vomiting Last Admin: 09/10/18 17:37 Dose: 4 mg Rifaximin (Xifaxan) 550 mg PO BID [facility]; Protocol Last Admin: 08/22/18 09:07 Dose: Not Given Saliva Substitute (First Magic Mouthwash) 5 ml PO TID [facility] Last Admin: 09/10/18 16:17 Dose: 5 ml Sitagliptin Phosphate (Januvia) 25 mg PO DAILY [facility] Last Admin: 09/03/18 08:52 Dose: 25 mg - Labs Labs: 09/10/18 04:30 09/10/18 04:30 PT 15.6 Seconds (9.8-13.1) H 09/02/18 04:41 INR 1.4 09/02/18 04:41 APTT 32.2 Seconds (25.6-37.1) 08/24/18 06:45 - Head Exam Head Exam: ATRAUMATIC - Eye Exam Eye Exam: Normal appearance - ENT Exam ENT Exam: Mucous Membranes Dry - Respiratory Exam Respiratory Exam: Decreased Breath Sounds - Cardiovascular Exam Cardiovascular Exam: +S1, +S2 - GI/Abdominal Exam GI & Abdominal Exam: Normal Bowel Sounds Assessment and Plan (1) Thrombocytopenia Status: Chronic (2) Anemia Status: Acute
[2018-09-10] MEDS ORDERED: Oxycodone/Acetaminophen 5/325 mg Tab PO ONE (23:06)
[2018-09-11] MEDS ORDERED: Oxycodone/Acetaminophen 5/325 mg Tab PO PRN (02:25)
[2018-09-11] MEDS ORDERED: Morphine 4 MG/ML VIAL ONE (03:45)
--- NOTE | 2018-09-11 04:39 | PN ---
DATE: 09/10/2018 FOLLOWUP RENAL CONSULTATION LOCATION: The patient is located in room 435, bed 1. REASON FOR RENAL CONSULTATION: Acute renal failure and for further evaluation. SUBJECTIVE: Mrs. Sheth is an 82-year-old elderly female with a past medical history significant for longstanding hypertension, diabetes, pulmonary hypertension, tricuspid regurgitation, cirrhosis of the liver, who was admitted initially with cough, shortness of breath, and found to have pneumonia, status post treatment for pneumonia and CHF, bilateral thoracentesis with recurrent pleural effusion, and her hospital course was complicated by acute renal failure, requiring initiation of the renal replacement therapy for the last 2 weeks. The patient is on hold hemodialysis as per the patient's family request. The patient became bradycardic and unresponsive during dialysis on Monday. The patient was very anxious. The patient was hemodynamically stable. Hemodialysis was discontinued after 40 minutes on Monday. The patient's family wants to hold on to the dialysis until Monday. The patient was supposed to go for thoracentesis and possible chest tube placement today, and surgery was postponed for tomorrow, and family is requesting for possible dialysis on Monday. The patient is resting comfortably, not in distress. PHYSICAL EXAMINATION: VITAL SIGNS: As follows: Blood pressure 153/71, pulse 97, respirations 33, temperature 97.3, and saturation 97%. Height 4 feet 11 inches and weight is 135 pounds. GENERAL: Mrs. Sheth is an 82-year-old elderly female, moderately built, moderately nourished, not in distress, slightly tachypneic. HEENT: Pupils are normal and reactive to light and accommodation. Conjunctivae pink. Sclerae anicteric. Tongue is moist. Trachea is midline. LUNGS: Symmetric on both sides. Bilateral breath sounds present. Bilateral basal crackles present. CARDIOVASCULAR SYSTEM: S1, S2, audible. No murmur or gallop. ABDOMEN: Normal in appearance. Soft, tympanitic. No guarding. No rigidity. No hepatosplenomegaly. Abdomen is slightly distended today. No tenderness. CENTRAL NERVOUS SYSTEM: The patient is drowsing and arousable. Sensory and motor system is grossly within normal limits. EXTREMITIES: No cyanosis. No clubbing. No edema. CURRENT MEDICATIONS: Include as follows: Acetylcysteine inhaler b.i.d., Arimidex 1 mg p.o. daily, Cardizem 30 mg p.o. b.i.d., Coreg 3.125 mg p.o. every 12 hours, First Magic Mouthwash 5 mL p.o. t.i.d., Levemir 5 units subcu at bedtime, metolazone 2.5 mg p.o. daily, Zofran 4 mg IV every 6 hours p.r.n., Procrit 10,000 units three times a week, and Pepcid 20 mg by NG tube daily. LABORATORY DATA: Include as follows: As of 09/10/2018, WBC 7.1, hemoglobin 8.6, hematocrit is 26.5, and platelets 50. Sodium 135, potassium 4.5, chloride 94, CO2 of 28, BUN 87, creatinine 2.8, GFR is 16, glucose is 357, calcium 9.7. Total bili 1.1, AST 48, ALT 43, alkaline phosphatase 113, total protein 6.1, and albumin is 2.7. Chest x-ray, as of 09/10/2018, impression: Increased right pleural effusion with underlying right basilar airspace disease, not excluded. Stable cardiomegaly. No pulmonary vascular congestion. I accept the abdomen report is pending. ASSESSMENT AND PLAN: In summary, Mrs. Sheth is an 82-year-old elderly female with a history of hypertension, diabetes, pulmonary hypertension, tricuspid regurgitation, pleural effusion, cirrhosis of the liver, acute renal failure, anemia, and thrombocytopenia. 1. Oliguric acute renal failure, most likely secondary to multifactorial, cannot rule out acute tubular necrosis versus hepatorenal syndrome. 2. Anemia. 3. Thrombocytopenia. 4. Cirrhosis of the liver. 5. Pulmonary hypertension with tricuspid regurgitation. 6. Bilateral pleural effusion, right more than the left. PLAN: Follow up with IR or CT surgery for possible chest tube and drainage. The patient's family is requesting to hold hemodialysis until Monday. Continue to monitor electrolytes, and overall prognosis is extremely poor. We will follow with you. Thank you for allowing me to participate in your patient's care. Lalita Stovall MD
[2018-09-11] MEDS: Albuterol-Ipratrop 3 mg / 0.5 (3 ml) UD INH SCH ×4 (04:58→14:59)
[2018-09-11 06:24] LABS: HEMOGLOBIN 9.6 g/dL (12.0-16.0); MEAN CORPUSCULAR HEMOGLOBIN 33.7 pg (27.0-31.0); MEAN CORPUSCULAR HGB CONC 31.8 g/dL (33.0-37.0); RBC 2.84 Mil/uL (3.80-5.20); RED CELL DISTRIBUTION WIDTH 22.1 % (11.5-14.5); WHITE BLOOD COUNT 12.9 K/uL (4.8-10.8)
[2018-09-11] MEDS ORDERED: Morphine 4 MG/ML VIAL IVP ONE (06:28)
[2018-09-11 06:43] LABS: INR 1.3; PROTHROMBIN TIME 15.1 Seconds (9.8-13.1)
[2018-09-11 06:59] LABS: ALB/GLOB RATIO 0.8 (1.0-2.1); ALBUMIN 3.1 g/dL (3.5-5.0); CALCIUM 9.6 mg/dL (8.4-10.2)
[2018-09-11] MEDS: Acetylcysteine 20% Inhal Soln (4ml) INH SCH (07:40)
[2018-09-11 09:06] LABS: ABG ALLEN TEST YES; ARTERIAL BLOOD GAS HCO3 23.4 mmol/L (21-28); ARTERIAL BLOOD GAS HEMOGLOBIN 9.4 g/dL (11.7-17.4); ARTERIAL BLOOD GAS O2 CAPACITY 12.7 mL/dL (16-24); ARTERIAL BLOOD GAS O2 CONTENT 11.7 ML/dL (15-23); ARTERIAL BLOOD GAS O2 SAT 91.8 % (95-98); ARTERIAL BLOOD GAS PCO2 65 mm/Hg (35-45); ARTERIAL BLOOD GAS PH 7.22 (7.35-7.45); ARTERIAL BLOOD GAS PO2 59 mm/Hg (80-100); ARTERIAL BLOOD GAS TCO2 28.6 mmol/L (22-28)
[2018-09-11] MEDS: Mag&Al/Simet/Diphen/Lido 237 ML KIT PO SCH ×3 (09:21→17:07)
[2018-09-11] MEDS: Insulin Regular 100 units/ml SC SCH ×3 (09:21→17:06)
--- NOTE | 2018-09-11 09:37 | CP.PCM.PN ---
Subjective - Date & Time of Evaluation Date of Evaluation: 09/11/18 Time of Evaluation: 09:40 - Subjective Subjective: SON AT BEDSIDE--HE WANTS AGGRESSIVE INTERVENTION DESPITE PT BEING A DNR PT IS LETHARGIC ON BIPAP ABGS REVIEWED 02 SAT--90% Objective - Vital Signs/Intake and Output Vital Signs (last 24 hours): Temp Pulse Resp BP Pulse Ox 97.7 F 97 H 91 H 128/56 L 26 L 09/11/18 08:00 09/11/18 09:17 09/11/18 08:00 09/11/18 09:17 09/11/18 08:00 Intake and Output: 09/11/18 09/11/18 06:59 18:59 Intake Total 24 4 Balance 24 4 - Medications Medications: Current Medications Acetaminophen (Tylenol 650mg/20.3ml Solution Ud) 650 mg PO Q4 PRN PRN Reason: Pain, moderate (4-7) Last Admin: 09/10/18 22:08 Dose: 650 mg Acetaminophen (Tylenol 325mg Tab) 650 mg PO Q6 PRN PRN Reason: Pain, Mild (1-3) Acetylcysteine (Acetylcysteine 20%) 2 ml INH RBID [facility] Last Admin: 09/11/18 07:40 Dose: 2 ml Albuterol/Ipratropium (Duoneb 3 Mg/0.5 Mg (3 Ml) Ud) 3 ml INH RQ4 PRN PRN Reason: Shortness of Breath Last Admin: 09/06/18 16:43 Dose: 3 ml Albuterol/Ipratropium (Duoneb 3 Mg/0.5 Mg (3 Ml) Ud) 3 ml INH RQ4 [facility] Last Admin: 09/11/18 07:40 Dose: 3 ml Anastrozole (Arimidex 1 Mg Tab) 1 mg PO DAILY [facility] Last Admin: 09/11/18 09:17 Dose: Not Given Calcium Acetate (Phoslo) 667 mg PO DAILY [facility] Last Admin: 08/22/18 10:00 Dose: Not Given Carvedilol (Coreg) 3.125 mg PO Q12 [facility] Last Admin: 09/10/18 22:06 Dose: 3.125 mg Diltiazem HCl (Cardizem) 30 mg PO BID [facility] Last Admin: 09/11/18 09:17 Dose: Not Given Ergocalciferol (Drisdol 50,000 Intl Units Cap) 1 cap PO QWK [facility] Escitalopram Oxalate (Lexapro) 20 mg PO DAILY [facility] Famotidine (Pepcid) 20 mg NG DAILY [facility] Last Admin: 09/10/18 08:35 Dose: 20 mg Insulin Detemir (Levemir) 5 units SC HS [facility] Last Admin: 09/10/18 22:08 Dose: 5 units Insulin Human Lispro (Humalog) 10 units SC TIDAC [facility] Last Admin: 08/22/18 12:31 Dose: Not Given Insulin Human Regular (Humulin R) 0 units SC ACCU-CHECK [facility]; Protocol Last Admin: 09/11/18 09:21 Dose: Not Given Lactulose (Enulose) 20 gm PO TID [facility] Last Admin: 08/25/18 08:24 Dose: 20 gm Losartan Potassium (Cozaar) 50 mg PO DAILY [facility] Metolazone (Zaroxolyn) 2.5 mg PO DAILY [facility] Last Admin: 09/10/18 08:35 Dose: 2.5 mg Nystatin (Nystop Topical Powder) 1 applic TOP TID [facility] Last Admin: 09/10/18 16:17 Dose: 1 applic Ondansetron HCl (Zofran Inj) 4 mg IVP Q6 PRN PRN Reason: Nausea/Vomiting Last Admin: 09/10/18 17:37 Dose: 4 mg Oxycodone/Acetaminophen (Percocet 5/325 Mg Tab) 1 tab PO Q6 PRN PRN Reason: pain (4-10) Stop: 09/14/18 02:26 Last Admin: 09/11/18 02:36 Dose: 1 tab Rifaximin (Xifaxan) 550 mg PO BID [facility]; Protocol Last Admin: 08/22/18 09:07 Dose: Not Given Saliva Substitute (First Magic Mouthwash) 5 ml PO TID [facility] Last Admin: 09/11/18 09:21 Dose: Not Given Sitagliptin Phosphate (Januvia) 25 mg PO DAILY [facility] Last Admin: 09/03/18 08:52 Dose: 25 mg - Labs Labs: 09/11/18 06:21 09/11/18 06:21 PT 15.1 Seconds (9.8-13.1) H 09/11/18 06:21 INR 1.3 09/11/18 06:21 APTT 32.2 Seconds (25.6-37.1) 08/24/18 06:45 - Constitutional Appears: Chronically Ill - Head Exam Head Exam: ATRAUMATIC, NORMAL INSPECTION, NORMOCEPHALIC - Eye Exam Eye Exam: EOMI, Normal appearance, PERRL Pupil Exam: NORMAL ACCOMODATION, PERRL - ENT Exam ENT Exam: Mucous Membranes Moist, Normal Exam - Neck Exam Neck Exam: Full ROM, Normal Inspection. absent: Lymphadenopathy - Respiratory Exam Respiratory Exam: Decreased Breath Sounds, Prolonged Expiratory Phase, Rales Additional comments: ON BIPAP - Cardiovascular Exam Cardiovascular Exam: REGULAR RHYTHM, +S1, +S2. absent: Murmur - GI/Abdominal Exam GI & Abdominal Exam: Soft, Normal Bowel Sounds. absent: Tenderness - Rectal Exam Rectal Exam: NORMAL INSPECTION - Extremities Exam Extremities Exam: Full ROM, Normal Capillary Refill, Normal Inspection. absent: Joint Swelling, Pedal Edema - Back Exam Back Exam: NORMAL INSPECTION - Neurological Exam Additional comments: LETHARGIC - Psychiatric Exam Psychiatric exam: Normal Affect, Normal Mood - Skin Skin Exam: Dry, Intact, Normal Color, Warm Assessment and Plan - Assessment and Plan (Free Text) Assessment: ACUTE RESPIRATORY FAILURE PLEURAL EFFUSION VALVULAR HEART DZ CHD ACUTE KIDNEY FAILURE THROMBOCYTOPENIA Plan: CASE DISCUSSED WITH PT'S SON, SHELVER AND SURGICAL TEAM PT WILL NEED TO BE INTUBATED AND VENTILATED THIS AM SHELVER TO PROCEED WITH INTUBATION
[2018-09-11] MEDS: metOLazone 2.5 MG TAB PO SCH (10:02)
[2018-09-11] MEDS: Famotidine 40 MG/5 ML NG SCH (10:02)
[2018-09-11] MEDS ORDERED: Midazolam 2 MG/2 ML VIAL ONE (10:13)
[2018-09-11] MEDS ORDERED: Etomidate 20 mg/10ml Inj IV ONE (10:14)
[2018-09-11] MEDS ORDERED: Midazolam 2 MG/2 ML VIAL IV PRN (11:59)
--- NOTE | 2018-09-11 12:36 | CP.PCM.PN ---
Subjective - Date & Time of Evaluation Date of Evaluation: 09/11/18 Time of Evaluation: 12:17 - Subjective Subjective: Reason for consultatlon: Pleurex catlh for recurrent pleural effusion. Requested by ICU Pt s/e. Progresss notes and labs and imaging studies reviewed. 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 She is not able to undergo hemodyalysis due to dropping bp, she is intubated this am for resp failure Pleural effusion has been managed by IR thoracentesis. Insertion of pleurex cath entails a significant morbidity and mortality for this clinicallly unstable patient. I would recommend a pigtail cath by IR for now, and may consider pleurex cath in the future. d/w Khushbu Yan, family members. Objective - Vital Signs/Intake and Output Vital Signs (last 24 hours): Temp Pulse Resp BP Pulse Ox 97.7 F 97 H 91 H 128/56 L 26 L 09/11/18 08:00 09/11/18 09:17 09/11/18 08:00 09/11/18 09:17 09/11/18 08:00 Intake and Output: 09/11/18 09/11/18 06:59 18:59 Intake Total 24 4 Balance 24 4 - Medications Medications: Current Medications Acetaminophen (Tylenol 650mg/20.3ml Solution Ud) 650 mg PO Q4 PRN PRN Reason: Pain, moderate (4-7) Last Admin: 09/10/18 22:08 Dose: 650 mg Acetaminophen (Tylenol 325mg Tab) 650 mg PO Q6 PRN PRN Reason: Pain, Mild (1-3) Acetylcysteine (Acetylcysteine 20%) 2 ml INH RBID [facility] Last Admin: 09/11/18 07:40 Dose: 2 ml Albuterol/Ipratropium (Duoneb 3 Mg/0.5 Mg (3 Ml) Ud) 3 ml INH RQ4 PRN PRN Reason: Shortness of Breath Last Admin: 09/06/18 16:43 Dose: 3 ml Albuterol/Ipratropium (Duoneb 3 Mg/0.5 Mg (3 Ml) Ud) 3 ml INH RQ4 [facility] Last Admin: 09/11/18 11:05 Dose: 3 ml Anastrozole (Arimidex 1 Mg Tab) 1 mg PO DAILY [facility] Last Admin: 09/11/18 09:17 Dose: Not Given Calcium Acetate (Phoslo) 667 mg PO DAILY [facility] Last Admin: 08/22/18 10:00 Dose: Not Given Carvedilol (Coreg) 3.125 mg PO Q12 [facility] Last Admin: 09/10/18 22:06 Dose: 3.125 mg Diltiazem HCl (Cardizem) 30 mg PO BID [facility] Last Admin: 09/11/18 09:17 Dose: Not Given Ergocalciferol (Drisdol 50,000 Intl Units Cap) 1 cap PO QWK [facility] Escitalopram Oxalate (Lexapro) 20 mg PO DAILY [facility] Famotidine (Pepcid) 20 mg NG DAILY [facility] Last Admin: 09/11/18 10:02 Dose: Not Given Insulin Detemir (Levemir) 5 units SC HS [facility] Last Admin: 09/10/18 22:08 Dose: 5 units Insulin Human Lispro (Humalog) 10 units SC TIDAC [facility] Last Admin: 08/22/18 12:31 Dose: Not Given Insulin Human Regular (Humulin R) 0 units SC ACCU-CHECK [facility]; Protocol Last Admin: 09/11/18 09:21 Dose: Not Given Lactulose (Enulose) 20 gm PO TID [facility] Last Admin: 08/25/18 08:24 Dose: 20 gm Losartan Potassium (Cozaar) 50 mg PO DAILY [facility] Metolazone (Zaroxolyn) 2.5 mg PO DAILY [facility] Last Admin: 09/11/18 10:02 Dose: Not Given Midazolam HCl (Versed Inj) 2 mg IV Q6H PRN PRN Reason: Agitation Nystatin (Nystop Topical Powder) 1 applic TOP TID [facility] Last Admin: 09/10/18 16:17 Dose: 1 applic Ondansetron HCl (Zofran Inj) 4 mg IVP Q6 PRN PRN Reason: Nausea/Vomiting Last Admin: 09/10/18 17:37 Dose: 4 mg Oxycodone/Acetaminophen (Percocet 5/325 Mg Tab) 1 tab PO Q6 PRN PRN Reason: pain (4-10) Stop: 09/14/18 02:26 Last Admin: 09/11/18 02:36 Dose: 1 tab Rifaximin (Xifaxan) 550 mg PO BID [facility]; Protocol Last Admin: 08/22/18 09:07 Dose: Not Given Saliva Substitute (First Magic Mouthwash) 5 ml PO TID [facility] Last Admin: 09/11/18 09:21 Dose: Not Given Sitagliptin Phosphate (Januvia) 25 mg PO DAILY [facility] Last Admin: 09/03/18 08:52 Dose: 25 mg - Labs Labs: 09/11/18 06:21 09/11/18 06:21 PT 15.1 Seconds (9.8-13.1) H 09/11/18 06:21 INR 1.3 09/11/18 06:21 APTT 32.2 Seconds (25.6-37.1) 08/24/18 06:45
[2018-09-11 12:48] VITALS: TEMP 98.9
--- NOTE | 2018-09-11 14:11 | RAD ---
Date of service: 09/11/2018 HISTORY: Respiratory insufficiency. COMPARISON: Portable chest 09/10/2018 6:01 p.m.. FINDINGS: LUNGS: Endotracheal tube is now in position terminating at the right mainstem bronchus. Retraction several cm is I recommended into the lower trachea followed by confirmation radiography. Nasogastric tube, right central venous dialysis catheter and left PICC unchanged in position as well as pacemaker. Limited right pleural effusion again evident. No interval change in trace of pleural effusion question. Underlying airspace disease at the mid to inferior right lung zone is less apparent currently with none identified at the left. No pneumothorax bilaterally. PLEURA: As above. CARDIOVASCULAR: Calcific atherosclerotic changes are seen related to the thoracic aorta. Mild cardiomegaly not excluded. No pulmonary vascular congestion. OSSEOUS STRUCTURES: No significant abnormalities. VISUALIZED UPPER ABDOMEN: Normal. OTHER FINDINGS: None. IMPRESSION: Endotracheal tube has been placed in the interval terminating the origin the right mainstem bronchus and retraction several cm is advised followed by confirmation radiography. Diminished mid to inferior airspace disease with small right pleural effusion unchanged. Trace left pleural effusion again questioned. Findings reviewed and discussed with Dr. Gao with written down and read back verification 09/11/2018, 2 o'clock p.m.. Apparently referring physician is already retracted the endotracheal tube into the trachea following the current radiograph. Follow-up radiography remains recommended.
[2018-09-11] MEDS ORDERED: Morphine 100 MG in Sodium Chloride 0.9% 100 ML IV SCH (14:15)
--- NOTE | 2018-09-11 15:01 | RAD ---
Date of service: 09/10/2018 HISTORY: Pleural effusion COMPARISON: Prior single, frontal chest radiograph 09/10/2018. FINDINGS: LUNGS: Right central venous dialysis catheter and feeding tube are unchanged in position with pacemaker reiterated. Left PICC unchanged. Limited right pleural effusion not excluded once again. Linear atelectasis is increased at the inferior left lung zone. Airspace disease difficult to exclude at the right base with none identified at the left. Right base remains obscured by chest generator. PLEURA: Trace left pleural effusion not excluded. Right pleural effusion unchanged. CARDIOVASCULAR: Calcific atherosclerotic changes are seen related to the thoracic aorta. Normal cardiac size. No pulmonary vascular congestion. OSSEOUS STRUCTURES: No significant abnormalities. VISUALIZED UPPER ABDOMEN: Normal. OTHER FINDINGS: None. IMPRESSION: Limited stable right pleural effusions suspected with trace left pleural effusion remaining question. Linear atelectasis is increased at the left base. Right base obscured by pacemaker generator.
--- NOTE | 2018-09-11 16:03 | RAD ---
Date of service: 09/10/2018 HISTORY: Adbominal distension COMPARISON: None available. FINDINGS: BOWEL: Gas seen distending the stomach with retained food with the feeding tube also present in the stomach. Gas is also seen distending several large and small bowel loops at the right ward abdomen. Gas seen in limited segment of bowel in the left lower quadrant but not the rectum or the distal rectosigmoid region. This is a nonspecific bowel gas pattern. Obstruction is difficult to exclude nevertheless. Clinical correlation and radiographic follow-up are advised or CT. BONES: Diffuse osteopenia suggests osteoporosis. OTHER FINDINGS: None. IMPRESSION: Nonspecific bowel gas pattern. Follow-up radiography or CT recommended for added characterization.
[2018-09-11 16:59] VITALS: BP 87/31; PULSE 88; RESP 14; O2SAT 93
--- NOTE | 2018-09-11 18:42 | PCM.PROC ---
Procedures Attestation:: I certify that I have explained the specified Operation(s) or Procedure(s), risks, benefits and reasonable alternatives to the Patient and/or other person responsible. The opportunity was given to ask questions and all questions answered - Intubation Time Out Performed: Yes Sedative: Etomidate (20) Laryngoscope: Glidescope ET Tube Size: 7.5 ET Tube Uncuffed: No (cuffed) ET Tube Secured Locarion: Lips (22 cm) ET Tube Placement Confirmation: Visualized Passing Through Cords, Breath Sounds Equal Bilaterally, No Breath Sounds Over Epigastrum, Confirmation w/Capnometry Patient Tolerated Procedure: Well, No Complications Procedure Immediate Complications: None
--- NOTE | 2018-09-11 18:48 | CP.CCUPN ---
CCU Subjective - Physician Review Events Since Last Encounter (Free Text): 09/11/18 18:43 breathing was much more labored today. CCU Objective - Vital Signs / Intake & Output Vital Signs (Last 4 hours): Vital Signs Pulse Resp BP Pulse Ox 09/11/18 16:00 88 14 87/31 L 93 L Intake and Output (Last 8hrs): Intake & Output 09/11/18 09/11/18 09/11/18 06:59 14:59 22:59 Intake Total 16 166 122 Balance 16 166 122 Weight 135 lb Intake: IV 16 159 122 Intake, Piggyback 7 - Physical Exam Physical Exam Limitations: Positive for: Altered Mental Status Head: Positive for: Atraumatic, Normocephalic Pupils: Positive for: PERRL Conjunctiva: Positive for: Normal Ears: Positive for: Normal Mouth: Positive for: Moist Mucous Membranes Nose (External): Positive for: Atraumatic Neck: Positive for: Normal Range of Motion Respiratory/Chest: Positive for: Rhonchi Cardiovascular: Positive for: Irregular Rhythm Abdomen: Positive for: Normal Bowel Sounds Upper Extremity: Positive for: Normal Inspection Lower Extremity: Positive for: Normal Inspection Neurological: Positive for: Other (lethergic) - Medications Active Medications: Active Medications Generic Name Dose Route Start Last Admin Trade Name Freq PRN Reason Stop Dose Admin Acetaminophen 650 mg 09/01/18 07:06 09/10/18 22:08 Tylenol 650mg/20.3ml Solution Ud PO 650 mg Q4 PRN Administration Pain, moderate (4-7) Acetaminophen 650 mg 09/11/18 02:26 Tylenol 325mg Tab PO Q6 PRN Pain, Mild (1-3) Acetylcysteine 2 ml 09/06/18 20:00 09/11/18 07:40 Acetylcysteine 20% INH 2 ml RBID KATEY Administration Albuterol/Ipratropium 3 ml 09/05/18 01:59 09/06/18 16:43 Duoneb 3 Mg/0.5 Mg (3 Ml) Ud INH 3 ml RQ4 PRN Administration Shortness of Breath Albuterol/Ipratropium 3 ml 09/06/18 17:30 09/11/18 14:59 Duoneb 3 Mg/0.5 Mg (3 Ml) Ud INH Not Given RQ4 KATEY Anastrozole 1 mg 08/22/18 09:00 09/11/18 09:17 Arimidex 1 Mg Tab PO Not Given DAILY [facility] Calcium Acetate 667 mg 08/22/18 09:00 08/22/18 10:00 Phoslo PO Not Given DAILY [facility] Carvedilol 3.125 mg 09/05/18 21:00 09/11/18 15:33 Coreg PO Not Given Q12 [facility] Diltiazem HCl 30 mg 09/05/18 17:00 09/11/18 17:07 Cardizem PO Not Given BID [facility] Ergocalciferol 1 cap 08/22/18 00:16 Drisdol 50,000 Intl Units Cap PO QWK [facility] Escitalopram Oxalate 20 mg 08/22/18 09:00 Lexapro PO DAILY [facility] Famotidine 20 mg 09/09/18 09:00 09/11/18 10:02 Pepcid NG Not Given DAILY [facility] Norepinephrine Bitartrate 16 266 mls @ 2.49 mls/hr 09/11/18 13:44 09/11/18 14:20 mg/ Dextrose IV 09/12/18 13:43 10 mcg/min .Q24H ONE 9.98 mls/hr Titration Protocol 2.5 MCG/MIN Morphine Sulfate 100 mg/ 104 mls @ 7.28 mls/hr 09/11/18 14:15 09/11/18 17:05 Sodium Chloride IV 12 mg/hr .[id number] [facility] 12.48 mls/hr Titration Protocol 7 MG/HR Insulin Detemir 5 units 09/06/18 22:00 09/10/18 22:08 Levemir SC 5 units HS [facility] Administration Insulin Human Lispro 10 units 08/22/18 07:30 08/22/18 12:31 Humalog SC Not Given TIDAC [facility] Insulin Human Regular 0 units 08/22/18 23:00 09/11/18 17:06 Humulin R SC Not Given ACCU-CHECK [facility] Protocol Lactulose 20 gm 08/22/18 09:00 08/25/18 08:24 Enulose PO 20 gm TID [facility] Administration Losartan Potassium 50 mg 08/22/18 09:00 Cozaar PO DAILY [facility] Metolazone 2.5 mg 08/22/18 09:00 09/11/18 10:02 Zaroxolyn PO Not Given DAILY [facility] Midazolam HCl 2 mg 09/11/18 11:59 09/11/18 17:53 Versed Inj IV 2 mg Q6H PRN Administration Agitation Nystatin 1 applic 09/07/18 09:00 09/11/18 17:06 Nystop Topical Powder TOP Not Given TID [facility] Ondansetron HCl 4 mg 09/01/18 16:25 09/10/18 17:37 Zofran Inj IVP 4 mg Q6 PRN Administration Nausea/Vomiting Oxycodone/Acetaminophen 1 tab 09/11/18 02:25 09/11/18 02:36 Percocet 5/325 Mg Tab PO 09/14/18 02:26 1 tab Q6 PRN Administration pain (4-10) Rifaximin 550 mg 08/22/18 09:00 08/22/18 09:07 Xifaxan PO Not Given BID [facility] Protocol Saliva Substitute 5 ml 08/28/18 13:00 09/11/18 17:07 First Magic Mouthwash PO Not Given TID [facility] Sitagliptin Phosphate 25 mg 08/22/18 09:00 09/03/18 08:52 Januvia PO 25 mg DAILY KATEY Administration - Patient Studies Lab Studies: Microbiology Studies 09/07/18 13:30 Gram Stain - Final Body Fluid - Pleural Fluid Body Fluid Culture - Final No growth. 09/09/18 09:32 Urine Culture - Final Urine,Catheterized Yeast Species Lab Studies 09/11/18 09/11/18 09/11/18 Range/Units 11:16 08:55 06:58 WBC (4.8-10.8) K/uL RBC (3.80-5.20) Mil/uL Hgb (12.0-16.0) g/dL Hct (34.0-47.0) % MCV (81.0-99.0) fl MCH (27.0-31.0) pg MCHC (33.0-37.0) g/dL RDW (11.5-14.5) % Plt Count (130-400) K/uL Manual Plt Count (130-400) K/uL PT (9.8-13.1) Seconds INR pCO2 65 H (35-45) mm/Hg pO2 59 L (80-100) mm/Hg HCO3 23.4 (21-28) mmol/L ABG pH 7.22 L (7.35-7.45) ABG Total CO2 28.6 H (22-28) mmol/L ABG O2 Saturation 91.8 L (95-98) % ABG O2 Content 11.7 L (15-23) ML/dL ABG Base Excess -1.7 (-2.0-3.0) mmol/L ABG Hemoglobin 9.4 L (11.7-17.4) g/dL ABG Carboxyhemoglobin 3.1 H (0.5-1.5) % POC ABG HHb (Measured) 7.8 H (0.0-5.0) % ABG Methemoglobin 1.3 (0.0-3.0) % ABG O2 Capacity 12.7 L (16-24) mL/dL Andres Test Yes A-a O2 Difference 288.0 mm/Hg Hgb O2 Saturation 87.9 L (95.0-98.0) % FiO2 60.0 % Sodium (132-148) mmol/l Potassium (3.6-5.0) MMOL/L Chloride (98-107) mmol/L Carbon Dioxide (22-30) mmol/L Anion Gap (10-20) BUN (7-17) mg/dl Creatinine (0.7-1.2) mg/dl Est GFR ( Amer) Est GFR (Non-Af Amer) POC Glucose (mg/dL) 278 H 257 H (65-110) mg/dL Random Glucose (65-105) mg/dL Calcium (8.4-10.2) mg/dL Total Bilirubin (0.2-1.3) mg/dl AST (14-36) U/L ALT (9-52) U/L Alkaline Phosphatase (38-126) U/L Total Protein (6.3-8.2) G/DL Albumin (3.5-5.0) g/dL Globulin (2.2-3.9) gm/dL Albumin/Globulin Ratio (1.0-2.1) 09/11/18 09/11/18 09/11/18 Range/Units 06:21 06:21 06:21 WBC 12.9 H D (4.8-10.8) K/uL RBC 2.84 L (3.80-5.20) Mil/uL Hgb 9.6 L (12.0-16.0) g/dL Hct 30.2 L (34.0-47.0) % MCV 106.0 H (81.0-99.0) fl MCH 33.7 H (27.0-31.0) pg MCHC 31.8 L (33.0-37.0) g/dL RDW 22.1 H (11.5-14.5) % Plt Count 91 L D (130-400) K/uL Manual Plt Count 196 (130-400) K/uL PT 15.1 H (9.8-13.1) Seconds INR 1.3 pCO2 (35-45) mm/Hg pO2 (80-100) mm/Hg HCO3 (21-28) mmol/L ABG pH (7.35-7.45) ABG Total CO2 (22-28) mmol/L ABG O2 Saturation (95-98) % ABG O2 Content (15-23) ML/dL ABG Base Excess (-2.0-3.0) mmol/L ABG Hemoglobin (11.7-17.4) g/dL ABG Carboxyhemoglobin (0.5-1.5) % POC ABG HHb (Measured) (0.0-5.0) % ABG Methemoglobin (0.0-3.0) % ABG O2 Capacity (16-24) mL/dL Andres Test A-a O2 Difference mm/Hg Hgb O2 Saturation (95.0-98.0) % FiO2 % Sodium 136 (132-148) mmol/l Potassium 5.1 H (3.6-5.0) MMOL/L Chloride 95 L (98-107) mmol/L Carbon Dioxide 25 (22-30) mmol/L Anion Gap 21 H (10-20) BUN 106 H* D (7-17) mg/dl Creatinine 3.4 H (0.7-1.2) mg/dl Est GFR ( Amer) 16 Est GFR (Non-Af Amer) 13 POC Glucose (mg/dL) (65-110) mg/dL Random Glucose 287 H (65-105) mg/dL Calcium 9.6 (8.4-10.2) mg/dL Total Bilirubin 1.5 H (0.2-1.3) mg/dl AST 60 H D (14-36) U/L ALT 49 (9-52) U/L Alkaline Phosphatase 182 H D (38-126) U/L Total Protein 6.9 (6.3-8.2) G/DL Albumin 3.1 L (3.5-5.0) g/dL Globulin 3.7 (2.2-3.9) gm/dL Albumin/Globulin Ratio 0.8 L (1.0-2.1) 09/10/18 Range/Units 20:37 WBC (4.8-10.8) K/uL RBC (3.80-5.20) Mil/uL Hgb (12.0-16.0) g/dL Hct (34.0-47.0) % MCV (81.0-99.0) fl MCH (27.0-31.0) pg MCHC (33.0-37.0) g/dL RDW (11.5-14.5) % Plt Count (130-400) K/uL Manual Plt Count (130-400) K/uL PT (9.8-13.1) Seconds INR pCO2 (35-45) mm/Hg pO2 (80-100) mm/Hg HCO3 (21-28) mmol/L ABG pH (7.35-7.45) ABG Total CO2 (22-28) mmol/L ABG O2 Saturation (95-98) % ABG O2 Content (15-23) ML/dL ABG Base Excess (-2.0-3.0) mmol/L ABG Hemoglobin (11.7-17.4) g/dL ABG Carboxyhemoglobin (0.5-1.5) % POC ABG HHb (Measured) (0.0-5.0) % ABG Methemoglobin (0.0-3.0) % ABG O2 Capacity (16-24) mL/dL Andres Test A-a O2 Difference mm/Hg Hgb O2 Saturation (95.0-98.0) % FiO2 % Sodium (132-148) mmol/l Potassium (3.6-5.0) MMOL/L Chloride (98-107) mmol/L Carbon Dioxide (22-30) mmol/L Anion Gap (10-20) BUN (7-17) mg/dl Creatinine (0.7-1.2) mg/dl Est GFR ( Amer) Est GFR (Non-Af Amer) POC Glucose (mg/dL) 270 H (65-110) mg/dL Random Glucose (65-105) mg/dL Calcium (8.4-10.2) mg/dL Total Bilirubin (0.2-1.3) mg/dl AST (14-36) U/L ALT (9-52) U/L Alkaline Phosphatase (38-126) U/L Total Protein (6.3-8.2) G/DL Albumin (3.5-5.0) g/dL Globulin (2.2-3.9) gm/dL Albumin/Globulin Ratio (1.0-2.1) Laboratory Results - last 24 hr 09/10/18 09/11/18 09/11/18 20:37 06:21 06:21 WBC 12.9 H D RBC 2.84 L Hgb 9.6 L Hct 30.2 L MCV 106.0 H MCH 33.7 H MCHC 31.8 L RDW 22.1 H Plt Count 91 L D Manual Plt Count 196 PT 15.1 H INR 1.3 pCO2 pO2 HCO3 ABG pH ABG Total CO2 ABG O2 Saturation ABG O2 Content ABG Base Excess ABG Hemoglobin ABG Carboxyhemoglobin POC ABG HHb (Measured) ABG Methemoglobin ABG O2 Capacity Andres Test A-a O2 Difference Hgb O2 Saturation FiO2 Sodium Potassium Chloride Carbon Dioxide Anion Gap BUN Creatinine Est GFR ( Amer) Est GFR (Non-Af Amer) POC Glucose (mg/dL) 270 H Random Glucose Calcium Total Bilirubin AST ALT Alkaline Phosphatase Total Protein Albumin Globulin Albumin/Globulin Ratio 09/11/18 09/11/18 09/11/18 06:21 06:58 08:55 WBC RBC Hgb Hct MCV MCH MCHC RDW Plt Count Manual Plt Count PT INR pCO2 65 H pO2 59 L HCO3 23.4 ABG pH 7.22 L ABG Total CO2 28.6 H ABG O2 Saturation 91.8 L ABG O2 Content 11.7 L ABG Base Excess -1.7 ABG Hemoglobin 9.4 L ABG Carboxyhemoglobin 3.1 H POC ABG HHb (Measured) 7.8 H ABG Methemoglobin 1.3 ABG O2 Capacity 12.7 L Andres Test Yes A-a O2 Difference 288.0 Hgb O2 Saturation 87.9 L FiO2 60.0 Sodium 136 Potassium 5.1 H Chloride 95 L Carbon Dioxide 25 Anion Gap 21 H BUN 106 H* D Creatinine 3.4 H Est GFR ( Amer) 16 Est GFR (Non-Af Amer) 13 POC Glucose (mg/dL) 257 H Random Glucose 287 H Calcium 9.6 Total Bilirubin 1.5 H AST 60 H D ALT 49 Alkaline Phosphatase 182 H D Total Protein 6.9 Albumin 3.1 L Globulin 3.7 Albumin/Globulin Ratio 0.8 L 09/11/18 11:16 WBC RBC Hgb Hct MCV MCH MCHC RDW Plt Count Manual Plt Count PT INR pCO2 pO2 HCO3 ABG pH ABG Total CO2 ABG O2 Saturation ABG O2 Content ABG Base Excess ABG Hemoglobin ABG Carboxyhemoglobin POC ABG HHb (Measured) ABG Methemoglobin ABG O2 Capacity Andres Test A-a O2 Difference Hgb O2 Saturation FiO2 Sodium Potassium Chloride Carbon Dioxide Anion Gap BUN Creatinine Est GFR ( Amer) Est GFR (Non-Af Amer) POC Glucose (mg/dL) 278 H Random Glucose Calcium Total Bilirubin AST ALT Alkaline Phosphatase Total Protein Albumin Globulin Albumin/Globulin Ratio Radiology Impressions: Radiology Impressions Abdomen X-Ray 09/10/18 17:55 IMPRESSION: Nonspecific bowel gas pattern. Follow-up radiography or CT recommended for added characterization. Chest X-Ray 09/10/18 17:55 IMPRESSION: Limited stable right pleural effusions suspected with trace left pleural effusion remaining question. Linear atelectasis is increased at the left base. Right base obscured by pacemaker generator. Chest X-Ray 09/11/18 10:51 IMPRESSION: Endotracheal tube has been placed in the interval terminating the origin the right mainstem bronchus and retraction several cm is advised followed by confirmation radiography. Diminished mid to inferior airspace disease with small right pleural effusion unchanged. Trace left pleural effusion again questioned. Findings reviewed and discussed with Dr. Gao with written down and read back verification 09/11/2018, 2 o'clock p.m.. Apparently referring physician is already retracted the endotracheal tube into the trachea following the current radiograph. Follow-up radiography remains recommended. Fingerstick Blood Sugar Results: 278 Review of Systems - Review of Systems Systems not reviewed;Unavailable: Altered Mental Status Critical Care Progress Note - Nutrition Nutrition: Nutrition Category Date Time Status NPO Diet [DIET] Diets 09/11/18 Breakfast Active Assessment/Plan (1) CHF (congestive heart failure) Assessment and plan: 82yo F. PPM, Afib, CHF, HTN, COPD, hypothyroidism, hyperlipidemia, DM type 2. admitted for acute exacerbation of CHF, course has worsened to cardiorenal failure, two cardiac arrests. Neuro: patient is barely alert secondary to hypercarbia. Lexapro for depression. Arimidex Pulm: acute respiratory failure with hypercapnea, decision made with family to intubate. CV: post intubation patient became hypotensive, requiring levophed initiation. Hem: anemia of chronic disease on procrit. Renal: ESRD on HD, not tolerating dialysis, she has severe bradycardia. Endo: DM type 2, RISS for coverage, lispro 10 units with meals, levemir 5 units qhs and Januvia. GI: tube feeding with Nepro. ID: no acute issues DVT proph - held with current thrombocytopenia GI proph - pepcid gomez for strict I/O's during acute illness Code status - DNR only Once the patient became hypotensive requiring pressors, the family approached me to stop all interventions and make their mother comfortable. A morphine drip was started, with prn versed. She was then terminally extubated around 6pm. The patient is now comfortable on high dose morphine drip and versed. She will most likely tonight. Given her multiple comorbidities and worsening critical illness with little hope of recovery despite maximal efforts given (i.e., dialysis and thoracentesis), it was agreed that comfort care would be in the patient's best interest. Critical Care time spent 50 minutes Multi-disciplinary rounds were performed with house staff, nursing, speech therapy, respiratory therapy, pharmacy and nutrition with integrated input from the primary team/attending and other consulting services. The documented time is cumulative and includes review of patient data/exams/labs/chart review and examination of the patient on rounds and throughout the day; time is exclusive of any procedures or teaching time. Current Visit: Yes Status: Acute Priority: High
--- NOTE | 2018-09-11 18:53 | CP.PCM.PRO ---
Pronouncement of Note - Clinical Findings Physical Exam: No Response Verbal/Painful Stimuli, Absent Peripheral Puls es{Carotid & Femoral}, Absent Heart & Breath Sounds, No Pupillary Light Reflex, No Corneal Reflex, Pupils Fixed & Dilated, Absence of Vital Signs - Notifications Pronouncement Notifications: Family Notified, Atending Notified Data Processing Supervisor Notified: No - Autopsy Autopsy Requested: No - N.George Certificate [place]ED[place] Number: [id number]
== END 2018-09-11 22:34 | DRG 208 ==
LOC: H.ER 23:16 → H.ERHOLD 08-04 06:44 → H.TEL 08-04 09:46 → H.ICU/CCU 08-22 00:12
PROVIDERS: ADMIT Family Medicine; ATTEND Family Medicine
PROC: 5A09557 Assistance with Respiratory Ventilation, Greater than 96 Consecutive Hours, Continuous Positive Airway Pressure (ICD-10-PCS; 2018-08-09)
PROC: 0W993ZZ Drainage of Right Pleural Cavity, Percutaneous Approach (ICD-10-PCS; 2018-08-15)
PROC: 0W993ZZ Drainage of Right Pleural Cavity, Percutaneous Approach (ICD-10-PCS; 2018-08-21)
PROC: 05HY33Z Insertion of Infusion Device into Upper Vein, Percutaneous Approach (ICD-10-PCS; 2018-08-22)
PROC: 6A551Z2 Pheresis of Platelets, Multiple (ICD-10-PCS; principal; 2018-08-23)
PROC: 05HM33Z Insertion of Infusion Device into Right Internal Jugular Vein, Percutaneous Approach (ICD-10-PCS; 2018-08-24)
PROC: 5A1D70Z Performance of Urinary Filtration, Intermittent, Less than 6 Hours Per Day (ICD-10-PCS; 2018-08-24)
PROC: 0BH17EZ Insertion of Endotracheal Airway into Trachea, Via Natural or Artificial Opening (ICD-10-PCS; 2018-09-03)
PROC: 5A1935Z Respiratory Ventilation, Less than 24 Consecutive Hours (ICD-10-PCS; 2018-09-03)
PROC: 0DH67UZ Insertion of Feeding Device into Stomach, Via Natural or Artificial Opening (ICD-10-PCS; 2018-09-05)
PROC: 0W993ZX Drainage of Right Pleural Cavity, Percutaneous Approach, Diagnostic (ICD-10-PCS; 2018-09-07)
PROC: 0BH17EZ Insertion of Endotracheal Airway into Trachea, Via Natural or Artificial Opening (ICD-10-PCS; 2018-09-11)
DX: J18.9 Pneumonia, unspecified organism (principal); J96.01 Acute respiratory failure with hypoxia; I50.33 Acute on chronic diastolic (congestive) heart failure; J96.02 Acute respiratory failure with hypercapnia; G93.41 Metabolic encephalopathy; N17.0 Acute kidney failure with tubular necrosis; I13.0 Hypertensive heart and chronic kidney disease with heart failure and stage 1 through stage 4 chronic kidney disease, or unspecified chronic kidney disease; J44.0 Chronic obstructive pulmonary disease with (acute) lower respiratory infection; J44.1 Chronic obstructive pulmonary disease with (acute) exacerbation; R18.8 Other ascites; J91.8 Pleural effusion in other conditions classified elsewhere; J45.51 Severe persistent asthma with (acute) exacerbation; E87.2 Acidosis; E87.1 Hypo-osmolality and hyponatremia; T83.83XA Hemorrhage due to genitourinary prosthetic devices, implants and grafts, initial encounter; R31.0 Gross hematuria; I48.2 Chronic atrial fibrillation; S30.1XXA Contusion of abdominal wall, initial encounter; X58.XXXA Exposure to other specified factors, initial encounter; Z95.0 Presence of cardiac pacemaker; E11.22 Type 2 diabetes mellitus with diabetic chronic kidney disease; E78.00 Pure hypercholesterolemia, unspecified; E03.9 Hypothyroidism, unspecified; F32.9 Major depressive disorder, single episode, unspecified; F41.9 Anxiety disorder, unspecified; Z79.4 Long term (current) use of insulin; E78.5 Hyperlipidemia, unspecified; I25.10 Atherosclerotic heart disease of native coronary artery without angina pectoris; I08.1 Rheumatic disorders of both mitral and tricuspid valves; Y95 Nosocomial condition; K74.60 Unspecified cirrhosis of liver; Z99.2 Dependence on renal dialysis; I48.0 Paroxysmal atrial fibrillation; N18.2 Chronic kidney disease, stage 2 (mild); E11.65 Type 2 diabetes mellitus with hyperglycemia; I27.20 Pulmonary hypertension, unspecified; Z66 Do not resuscitate; D69.59 Other secondary thrombocytopenia; E86.1 Hypovolemia; D63.1 Anemia in chronic kidney disease; Z74.01 Bed confinement status; I46.9 Cardiac arrest, cause unspecified; Y84.6 Urinary catheterization as the cause of abnormal reaction of the patient, or of later complication, without mention of misadventure at the time of the procedure; Z51.5 Encounter for palliative care